=== PATIENT | female | born 1980 | race Caucasian/White ===

== ENCOUNTER 2018-03-11 12:28 | Emergency (ER) | payer OTHER ==
[2018-03-11 12:59] LABS: BILIRUBIN,URINE NEGATIVE (NEG); CLARITY,URINE CLEAR; COLOR,URINE YELLOW; GLUCOSE,URINE >=1000 mg/dL (NEG); NITRITE,URINE NEGATIVE (NEG); PH,URINE 5.5; PROTEIN,URINE NEGATIVE (NEG-TRACE)
[2018-03-11 13:10] LABS: ADD MAN DIFF? NO
[2018-03-11 13:12] LABS: BACTERIA,URINE FEW /HPF (0-FEW); RBC,URINE TNTC /HPF (0-2); SQUAMOUS EPITHELIAL CELL,UR MANY /LPF
[2018-03-11 13:23] LABS: BASO # 0.1 x10^3/uL (0.0-0.2); BASO % 1 % (0-3); EOS # 0.2 x10^3/uL (0.0-0.7); EOS % 2 % (0-3); HEMATOCRIT 43.6 % (36.0-47.0); HEMOGLOBIN 15.3 g/dL (12.0-15.5); LYMPH # 2.5 x10^3/uL (1.0-4.8); LYMPH % 28 % (24-48); MEAN CORPUSCULAR HEMOGLOBIN 31 pg (25-35); MEAN CORPUSCULAR HGB CONC 35 g/dL (31-37); MEAN CORPUSCULAR VOLUME 88 fL (79-100); MONO # 0.5 x10^3/uL (0.0-1.1); MONO % 6 % (0-9); NEUT # 5.7 x10^3uL (1.8-7.7); NEUT % 63 % (31-73); PLATELET COUNT 211 x10^3/uL (140-400); RED BLOOD COUNT 4.93 x10^6/uL (3.50-5.40); RED CELL DISTRIBUTION WIDTH 15.8 % (11.5-14.5); WHITE BLOOD COUNT 9.1 x10^3/uL (4.0-11.0)
[2018-03-11 13:25] LABS: ANION GAP 8 (6-14); BLOOD UREA NITROGEN 10 mg/dL (7-20); BUN/CREATININE RATIO 13 (6-20); CALCIUM 8.8 mg/dL (8.5-10.1); CARBON DIOXIDE 29 mmol/L (21-32); CHLORIDE 100 mmol/L (98-107); CREATININE 0.8 mg/dL (0.6-1.0); GFR 80.7; GLUCOSE 304 mg/dL (70-99); POTASSIUM 4.1 mmol/L (3.5-5.1); SODIUM 137 mmol/L (136-145)
[2018-03-11 13:31] LABS: ALBUMIN 3.5 g/dL (3.4-5.0); ALBUMIN/GLOBULIN RATIO 0.9 (1.0-1.7); ALK PHOS 104 U/L (46-116); ALT (SGPT) 135 U/L (14-59); AST (SGOT) 70 U/L (15-37); TOTAL BILIRUBIN 0.5 mg/dL (0.2-1.0); TOTAL PROTEIN 7.2 g/dL (6.4-8.2)
[2018-03-11] MEDS: IOHEXOL 300 MG/ML 100ML VIAL. IV (13:53)
[2018-03-11] MEDS ORDERED: CONTRAST GIVEN. MC (14:00)
[2018-03-11] MEDS: IV NORMAL SALINE 1000ML BAG 1,000 ML IV (14:01)
== END 2018-03-11 15:11 | disposition home or self-care (01) ==
LOC: ER 12:28
DX: K42.9 Umbilical hernia without obstruction or gangrene (principal); E11.9 Type 2 diabetes mellitus without complications; F90.9 Attention-deficit hyperactivity disorder, unspecified type; Z90.710 Acquired absence of both cervix and uterus; Z90.722 Acquired absence of ovaries, bilateral
CPT/HCPCS: 36415; 74177; 80053; 81001; 85025; 96360; 99285-25; J7030; Q9967

== ENCOUNTER 2018-05-16 18:57 | Emergency (ER) | payer SELFPAY ==
[~2018-05-16] VITALS: Ht 162.6 cm; Wt 83.9 kg
[~2018-05-16 18:57] MED LIST: AMOX1TAB61 PO; DEXT20TA2 PO; HYDR-971 PO; OMEP20TA63 PO; ONDA4TAB10 SL; TRAM50TA PO
[2018-05-16] MEDS ORDERED: IV NORMAL SALINE 1000ML BAG 1,000 ML IV ONE (20:30)
--- NOTE | 2018-05-16 21:23 | PHYS DOC ---
Past Medical History Past Medical History: Anxiety, Depression, Diabetes-Type II, Ovarian Cyst, Other Additional Past Medical Histor: ADHD, stage 3 nonalcoholic steatohepatitis ( PHILLIPS) Past Surgical History: Hysterectomy, Oophorectomy, Tonsillectomy, Other Additional Past Surgical Histo: bilateral ankles, multiple abscess removal surgerieS, breast reduction Alcohol Use: None Drug Use: None Adult General Chief Complaint Chief Complaint: HYPOGLYCEMIA HPI HPI Patient is a 38 year old female with PMHx of anxiety, DM2, PHILLIPS, ADHD who presents with 3 hours of tremulousness, nausea, and headache. Patient reports her symptoms started when she was watching football at home, and patient believed her BG was low. She checked it and it was 58. Patient notes her headache was gradual in onset, frontal in location and throbbing. Pt reports she has felt nauseated and had LUQ tenderness but denies vomitng or diarrhea. Pt also denies recent illness, fever, chest pain, palpitations, SOB, dizzyness, or falls. Pt notes she took her normal Jardiance and Januvia this morning and did not check her sugar then and denies recent changes in medication. Pt denies new stressors or sources of anxiety at home. Review of Systems Review of Systems Constitutional: Denies fever, notes chills [] Eyes: Denies change in visual acuity, redness, or eye pain [] HENT: Denies nasal congestion or sore throat [] Respiratory: Denies cough or shortness of breath [] Cardiovascular: Denies chest pain or palpitations [] GI: Notes abdominal pain, nausea, Denies vomiting, bloody stools or diarrhea [] : Denies dysuria or hematuria [] Musculoskeletal: Denies back pain or joint pain [] Integument: Denies rash or skin lesions [] Neurologic: Denies headache, focal weakness or sensory changes [] Endocrine: Denies polyuria or polydipsia [] Complete systems were reviewed and found to be within normal limits, except as documented in this note. Family History Family History Noncontributory Current Medications Current Medications Current Medications Medications (Trade) Dose Ordered Sig/Taqueria Start Time Stop Time Status Last Admin Dose Admin Dexamethasone Sodium Phosphate (Decadron) 10 mg 1X ONCE 05/16/18 21:30 05/16/18 21:31 DC 05/16/18 22:36 10 MG Dextrose (Dextrose 50%-Water Syringe) 25 gm 1X ONCE 05/16/18 23:30 05/16/18 23:31 DC 05/16/18 23:27 25 GM Ketorolac Tromethamine (Toradol 15mg Vial) 15 mg 1X ONCE 05/16/18 21:30 05/16/18 21:31 DC 05/16/18 22:36 15 MG Lorazepam (Ativan) 0.5 mg 1X ONCE 05/16/18 21:30 05/16/18 21:31 DC 05/16/18 22:37 0.5 MG Ondansetron HCl (Zofran) 4 mg 1X ONCE 05/16/18 21:30 05/16/18 21:31 DC 05/16/18 22:35 4 MG Potassium Chloride (Klor-Con) 40 meq 1X ONCE 05/16/18 23:30 05/16/18 23:31 DC 05/16/18 23:28 40 MEQ Sodium Chloride 1,000 ml @ 1,000 mls/hr 1X ONCE 05/16/18 20:30 05/16/18 21:29 DC 05/16/18 22:34 1,000 MLS/HR Allergies Allergies Allergies Coded Allergies Type Severity Reaction Last Updated Verified No Known Drug Allergies 05/11/15 No Physical Exam Physical Exam Constitutional: Well developed, well nourished, no acute distress, non-toxic appearance. [] HENT: Normocephalic, atraumatic, oropharynx moist, no oral exudates, nose normal. [] Eyes: PERRL, EOMI, conjunctiva normal, no discharge. [] Neck: Normal range of motion, no tenderness, supple, no meningismus [] Cardiovascular:Heart rate regular rhythm, no murmur [] Lungs & Thorax: Bilateral breath sounds clear to auscultation [] Abdomen: Bowel sounds normal, soft, LUQ tenderness, no pulsatile masses. [] Skin: Warm, dry, no erythema, no rash. [] Back: Chronic midthroacic midline tenderness, no CVA tenderness. [] Extremities: No tenderness, no cyanosis, no clubbing, ROM intact, no edema. [] Neurologic: Alert and oriented X 3, normal motor function, normal sensory function, no focal deficits noted. Intention tremulousness [] Psychologic: Affect normal, judgement normal, mood normal, appears mildly anxious [] Current Patient Data Vital Signs Vital Signs Date Time Temp Pulse Resp B/P (MAP) Pulse Ox O2 Delivery O2 Flow Rate FiO2 05/16/18 23:33 100 20 118/62 (80) 96 05/16/18 20:00 97.7 Room Air 97.7 Lab Values Laboratory Tests Test 05/16/18 19:04 05/16/18 21:15 05/16/18 21:34 05/16/18 21:50 Glucose (Fingerstick) 79 mg/dL (70-99) Urine Collection Type Unknown Urine Color Olive Urine Clarity Clear Urine pH 5.0 Urine Specific [place] >=1.030 Urine Protein Negative mg/dL (NEG-TRACE) Urine Glucose (UA) >=1000 mg/dL (NEG) Urine Ketones (Stick) Trace mg/dL (NEG) Urine Blood Large (NEG) Urine Nitrite Negative (NEG) Urine Bilirubin Small (NEG) Urine Urobilinogen Dipstick 1.0 mg/dL (0.2 mg/dL) Urine Leukocyte Esterase Negative (NEG) Urine RBC >40 /HPF (0-2) Urine WBC 1-4 /HPF (0-4) Urine Squamous Epithelial Cells Mod /LPF Urine Bacteria Few /HPF (0-FEW) Urine Mucus Marked /LPF POC Urine HCG, Qualitative Hcg negative (Negative) White Blood Count 14.9 x10^3/uL (4.0-11.0) H Red Blood Count 4.59 x10^6/uL (3.50-5.40) Hemoglobin 14.7 g/dL (12.0-15.5) Hematocrit 41.5 % (36.0-47.0) Mean Corpuscular Volume 90 fL (79-100) Mean Corpuscular Hemoglobin 32 pg (25-35) Mean Corpuscular Hemoglobin Concent 35 g/dL (31-37) Red Cell Distribution Width 16.1 % (11.5-14.5) H Platelet Count 277 x10^3/uL (140-400) Neutrophils (%) (Auto) 72 % (31-73) Lymphocytes (%) (Auto) 19 % (24-48) L Monocytes (%) (Auto) 8 % (0-9) Eosinophils (%) (Auto) 0 % (0-3) Basophils (%) (Auto) 1 % (0-3) Neutrophils # (Auto) 10.6 x10^3uL (1.8-7.7) H Lymphocytes # (Auto) 2.7 x10^3/uL (1.0-4.8) Monocytes # (Auto) 1.2 x10^3/uL (0.0-1.1) H Eosinophils # (Auto) 0.1 x10^3/uL (0.0-0.7) Basophils # (Auto) 0.2 x10^3/uL (0.0-0.2) Sodium Level 142 mmol/L (136-145) Potassium Level 2.9 mmol/L (3.5-5.1) *L Chloride Level 105 mmol/L (98-107) Carbon Dioxide Level 28 mmol/L (21-32) Anion Gap 9 (6-14) Blood Urea Nitrogen 10 mg/dL (7-20) Creatinine 0.8 mg/dL (0.6-1.0) Estimated GFR (Cockcroft-Gault) 80.3 BUN/Creatinine Ratio 13 (6-20) Glucose Level 49 mg/dL (70-99) L Calcium Level 9.1 mg/dL (8.5-10.1) Magnesium Level 2.0 mg/dL (1.8-2.4) Total Bilirubin 0.2 mg/dL (0.2-1.0) Aspartate Amino Transferase (AST) 63 U/L (15-37) H Alanine Aminotransferase (ALT) 101 U/L (14-59) H Alkaline Phosphatase 100 U/L (46-116) Creatine Kinase 55 U/L (26-192) Creatine Kinase MB (Mass) < 0.5 ng/mL (0.0-3.6) Creatine Kinase MB Relative Index % (0-4) Troponin I Quantitative < 0.017 ng/mL (0.000-0.055) Total Protein 7.2 g/dL (6.4-8.2) Albumin 3.6 g/dL (3.4-5.0) Albumin/Globulin Ratio 1.0 (1.0-1.7) Lipase 107 U/L (73-393) Thyroid Stimulating Hormone (TSH) 1.010 uIU/mL (0.358-3.74) Free Thyroxine 0.91 ng/dL (0.76-1.46) Free Triiodothyronine (T3) pg/mL 1.61 pg/mL (2.18-3.98) L Test 05/16/18 23:59 Glucose (Fingerstick) 126 mg/dL (70-99) H Laboratory Tests 05/16/18 21:50 Laboratory Tests 05/16/18 21:50 EKG EKG @2316 NSR at 100bpm, NO ST elevation. Incomplete RBBB Radiology/Procedures Radiology/Procedures [] Course & Med Decision Making Course & Med Decision Making 38-year-old female presenting with tremulousness. Patient notes she was feeling tremulous at home as if her blood sugar was low. Patient checked her blood sugar and found it to be 58. In the ED patient has noted tremulousness and initial point of care glucose was 79. Labs were collected and reviewed and showed glucose to be 48. Patient was given dextrose and by mouth nutrition and glucose was treated checked and was found to be 124 and patient reports she is feeling better. Patient also given Ativan did not improve her symptoms and her thyroid function was checked which was found to be normal. Patient's potassium was found to be 2.9 and it was replaced with 40 mEq of by mouth potassium. Patient stable for discharge with outpatient follow-up with PCP. Discussed findings and plan with patient and family, who acknowledge understanding and agreement. [] Dragon Disclaimer Dragon Disclaimer This electronic medical record was generated, in whole or in part, using a voice recognition dictation system. Departure Departure Impression: Primary Impression: Hypoglycemia Additional Impression: Hypokalemia Disposition: HOME, SELF-CARE Condition: IMPROVED Referrals: EBENEZER ALEGRIA MD (PCP) Patient Instructions: Hypoglycemia, [id number], Hypokalemia, Potassium Content of Foods Problem Qualifiers ANA FULLER DO May 16, 2018 21:23
[2018-05-16] MEDS ORDERED: KETOROLAC 15 MG/ML VIAL. IV ONE (21:30)
[2018-05-16] MEDS ORDERED: DEXAMETHASONE SOD PHOS 20 MG/5 ML VIAL. IV ONE (21:30)
[2018-05-16] MEDS ORDERED: ONDANSETRON PF 4 MG/2 ML VIAL. IV ONE (21:30)
[2018-05-16 21:40] LABS: BILIRUBIN,URINE SMALL (NEG); CLARITY,URINE CLEAR; COLOR,URINE AMBER; NITRITE,URINE NEGATIVE (NEG); PROTEIN,URINE NEGATIVE (NEG-TRACE)
[2018-05-16 21:45] LABS: SQUAMOUS EPITHELIAL CELL,UR MOD /LPF
[2018-05-16 21:46] LABS: RBC,URINE >40 /HPF (0-2)
[2018-05-16 21:47] LABS: BACTERIA,URINE FEW /HPF (0-FEW)
[2018-05-16 22:03] LABS: BASO # 0.2 x10^3/uL (0.0-0.2); BASO % 1 % (0-3); EOS # 0.1 x10^3/uL (0.0-0.7); EOS % 0 % (0-3); HEMATOCRIT 41.5 % (36.0-47.0); HEMOGLOBIN 14.7 g/dL (12.0-15.5); LYMPH # 2.7 x10^3/uL (1.0-4.8); LYMPH % 19 % (24-48); MEAN CORPUSCULAR HEMOGLOBIN 32 pg (25-35); MEAN CORPUSCULAR HGB CONC 35 g/dL (31-37); MEAN CORPUSCULAR VOLUME 90 fL (79-100); MONO # 1.2 x10^3/uL (0.0-1.1); MONO % 8 % (0-9); NEUT # 10.6 x10^3uL (1.8-7.7); NEUT % 72 % (31-73); PLATELET COUNT 277 x10^3/uL (140-400); RED BLOOD COUNT 4.59 x10^6/uL (3.50-5.40); RED CELL DISTRIBUTION WIDTH 16.1 % (11.5-14.5); WHITE BLOOD COUNT 14.9 x10^3/uL (4.0-11.0)
[2018-05-16 22:20] LABS: ALBUMIN 3.6 g/dL (3.4-5.0); CALCIUM 9.1 mg/dL (8.5-10.1); CREATININE 0.8 mg/dL (0.6-1.0); GFR 80.3; TOTAL BILIRUBIN 0.2 mg/dL (0.2-1.0); TOTAL PROTEIN 7.2 g/dL (6.4-8.2)
[2018-05-16 22:29] LABS: CREATINE KINASE 55 U/L (26-192)
[2018-05-16 22:31] LABS: FREE T4 0.91 ng/dL (0.76-1.46); POTASSIUM 2.9 mmol/L (3.5-5.1); THYROID STIM HORMONE (TSH) 1.01 uIU/mL (0.358-3.74)
[2018-05-16] MEDS ORDERED: POTASSIUM CHLORIDE 20 MEQ TABLET.ER. PO ONE (23:30)
[2018-05-16] MEDS ORDERED: DEXTROSE 50% 25 GM / 50ML DISP.SYRIN. IV ONE (23:30)
[2018-05-16 23:33] VITALS: BP 118/62
--- NOTE | 2018-05-17 07:21 | EKG ---
[facility] [address] [place] [address] Test Date: 2018-05-16 Test Time: 23:16:47 Pat Name: RON SKELTON Department: Room: Gender: F [employer] Analyst: JHON : 1980 Requested By: ANA FULLER Order Number: [id number] Reading MD: Floyd Jernigan Measurements Intervals [place] Rate: 99 P: 36 WA: 158 QRS: -15 QRSD: 92 T: 55 QT: 360 QTc: 467 Interpretive Statements SINUS RHYTHM LEFTWARD AXIS Electronically Signed On 05-17-2018 11:30:26 CDT by Floyd Jernigan
== END 2018-05-17 01:16 | disposition home or self-care (01) ==
LOC: ER 18:57
DX: E16.2 Hypoglycemia, unspecified (principal); E87.6 Hypokalemia; F41.9 Anxiety disorder, unspecified; R10.12 Left upper quadrant pain; F32.9 Major depressive disorder, single episode, unspecified; E11.9 Type 2 diabetes mellitus without complications; Z90.710 Acquired absence of both cervix and uterus; Z90.89 Acquired absence of other organs
CPT/HCPCS: 36415; 80053; 81001; 81025; 82553; 82962; 83690; 83735; 84439; 84443; 84481; 84484; 85025; 93005; 96361; 96374; 96375; 99285; J1100; J1885; J2060; J2405; J7030; J7042

== ENCOUNTER 2018-06-04 13:31 | Emergency (ER) | payer BC ==
[~2018-06-04] VITALS: Ht 172.7 cm; Wt 86.6 kg
[2018-06-04 14:45] LABS: BILIRUBIN,URINE SMALL (NEG); CLARITY,URINE CLEAR; COLOR,URINE AMBER; NITRITE,URINE NEGATIVE (NEG); PROTEIN,URINE NEGATIVE (NEG-TRACE)
[2018-06-04 14:45] LABS: BASO # 0.1 x10^3/uL (0.0-0.2); BASO % 1 % (0-3); EOS # 0.1 x10^3/uL (0.0-0.7); EOS % 1 % (0-3); HEMATOCRIT 43.7 % (36.0-47.0); HEMOGLOBIN 15.4 g/dL (12.0-15.5); LYMPH # 2.3 x10^3/uL (1.0-4.8); LYMPH % 22 % (24-48); MEAN CORPUSCULAR HEMOGLOBIN 32 pg (25-35); MEAN CORPUSCULAR HGB CONC 35 g/dL (31-37); MEAN CORPUSCULAR VOLUME 91 fL (79-100); MONO # 0.5 x10^3/uL (0.0-1.1); MONO % 5 % (0-9); NEUT # 7.4 x10^3uL (1.8-7.7); NEUT % 71 % (31-73); PLATELET COUNT 233 x10^3/uL (140-400); RED BLOOD COUNT 4.79 x10^6/uL (3.50-5.40); RED CELL DISTRIBUTION WIDTH 15.7 % (11.5-14.5); WHITE BLOOD COUNT 10.5 x10^3/uL (4.0-11.0)
[2018-06-04 14:48] LABS: SQUAMOUS EPITHELIAL CELL,UR MANY /LPF
[2018-06-04 14:49] LABS: BACTERIA,URINE MODERATE /HPF (0-FEW)
[2018-06-04 14:50] LABS: RBC,URINE OCC /HPF (0-2)
[2018-06-04 14:51] LABS: HYALINE CASTS, URINE FEW /HPF
[2018-06-04] MEDS ORDERED: IOHEXOL 300 MG/ML 100ML VIAL. IV ONE (15:00)
[2018-06-04] MEDS ORDERED: CONTRAST GIVEN. MC PRN (15:00)
[2018-06-04] MEDS ORDERED: ONDANSETRON PF 4 MG/2 ML VIAL. IV ONE (15:00)
[2018-06-04] MEDS ORDERED: fentaNYL PF VIAL 100 MCG/2 ML VIAL IV ONE ×2 (15:00→16:30)
[2018-06-04] MEDS ORDERED: IV NORMAL SALINE 1000ML BAG 1,000 ML IV ONE (15:00)
[2018-06-04 15:02] LABS: ALBUMIN 3.7 g/dL (3.4-5.0); CALCIUM 9.9 mg/dL (8.5-10.1); CREATININE 0.8 mg/dL (0.6-1.0); GFR 80.3; POTASSIUM 3.4 mmol/L (3.5-5.1); TOTAL BILIRUBIN 0.5 mg/dL (0.2-1.0); TOTAL PROTEIN 7.4 g/dL (6.4-8.2)
--- NOTE | 2018-06-04 15:12 | PHYS DOC ---
Past Medical History Past Medical History: Anxiety, Depression, Diabetes-Type II, Ovarian Cyst, Other Additional Past Medical Histor: ADHD, stage 3 nonalcoholic steatohepatitis ( PHILLIPS) Past Surgical History: Cholecystectomy, Hysterectomy, Oophorectomy, Tonsillectomy, Other Additional Past Surgical Histo: bilateral ankles, multiple abscess removal surgerieS, breast reduction Alcohol Use: None Drug Use: None Adult General Chief Complaint Chief Complaint: ABDOMINAL PAIN HPI HPI Patient is a 38 year old female who presents with abdominal pain that started last night. Patient states that it started in the 8 under the navel pain that moved over to right lower quadrant. Patient states she's had nausea and vomiting. Patient states she's vomited twice today. Patient denies any current fever. Patient states she took ibuprofen at noon today. Review of Systems Review of Systems Constitutional: Denies fever or chills [] Eyes: Denies change in visual acuity, redness, or eye pain [] HENT: Denies nasal congestion or sore throat [] Respiratory: Denies cough or shortness of breath [] Cardiovascular: No additional information not addressed in HPI [] GI: RLQ abdominal pain, nausea, vomiting. Denies bloody stools or diarrhea [] : Denies dysuria or hematuria [] Musculoskeletal: Denies back pain or joint pain [] Integument: Denies rash or skin lesions [] Neurologic: Denies headache, focal weakness or sensory changes [] Endocrine: Denies polyuria or polydipsia [] All other systems were reviewed and found to be within normal limits, except as documented in this note. Current Medications Current Medications Current Medications Medications (Trade) Dose Ordered Sig/Taqueria Start Time Stop Time Status Last Admin Dose Admin Dextrose (Dextrose 50%-Water Syringe) 12.5 gm 1X ONCE 06/04/18 16:00 06/04/18 16:01 DC Fentanyl Citrate (Fentanyl 2ml Vial) 50 mcg 1X ONCE 06/04/18 16:30 06/04/18 16:31 DC 06/04/18 16:29 50 MCG Info (CONTRAST GIVEN -- Rx MONITORING) 1 each PRN DAILY PRN 06/04/18 15:00 06/04/18 18:19 DC Iohexol (Omnipaque 300 Mg/ml) 75 ml 1X ONCE 06/04/18 15:00 06/04/18 15:01 DC 06/04/18 15:00 75 ML Ondansetron HCl (Zofran) 4 mg 1X ONCE 06/04/18 15:00 06/04/18 15:01 DC 06/04/18 15:24 4 MG Sodium Chloride 1,000 ml @ 1,000 mls/hr 1X ONCE 06/04/18 15:00 06/04/18 15:59 DC 06/04/18 15:25 1,000 MLS/HR Allergies Allergies Allergies Coded Allergies Type Severity Reaction Last Updated Verified No Known Drug Allergies 05/11/15 No Physical Exam Physical Exam Constitutional: Well developed, well nourished, no acute distress, non-toxic appearance. [] HENT: Normocephalic, atraumatic, bilateral external ears normal, oropharynx moist, no oral exudates, nose normal. [] Eyes: PERRLA, EOMI, conjunctiva normal, no discharge. [] Neck: Normal range of motion, no tenderness, supple, no stridor. [] Cardiovascular:Heart rate regular rhythm, no murmur [] Lungs & Thorax: Bilateral breath sounds clear to auscultation [] Abdomen: Bowel sounds normal, soft, RLQ tenderness, no masses, no pulsatile masses. [] Skin: Warm, dry, no erythema, no rash. [] Back: No tenderness, no CVA tenderness. [] Extremities: No tenderness, no cyanosis, no clubbing, ROM intact, no edema. [] Neurologic: Alert and oriented X 3, normal motor function, normal sensory function, no focal deficits noted. [] Psychologic: Affect normal, judgement normal, mood normal. [] Current Patient Data Vital Signs Vital Signs Date Time Temp Pulse Resp B/P (MAP) Pulse Ox O2 Delivery O2 Flow Rate FiO2 06/04/18 18:15 96 18 121/59 (79) 97 Room Air 06/04/18 14:43 98.4 98.4 Lab Values Laboratory Tests Test 06/04/18 14:10 06/04/18 14:22 06/04/18 14:40 06/04/18 15:42 Urine Collection Type Unknown Urine Color Olive Urine Clarity Clear Urine pH 5.0 Urine Specific [place] >=1.030 Urine Protein Negative mg/dL (NEG-TRACE) Urine Glucose (UA) >=1000 mg/dL (NEG) Urine Ketones (Stick) Negative mg/dL (NEG) Urine Blood Negative (NEG) Urine Nitrite Negative (NEG) Urine Bilirubin Small (NEG) Urine Urobilinogen Dipstick 1.0 mg/dL (0.2 mg/dL) Urine Leukocyte Esterase Negative (NEG) Urine RBC Occ /HPF (0-2) Urine WBC 5-10 /HPF (0-4) Urine Squamous Epithelial Cells Many /LPF Urine Bacteria Moderate /HPF (0-FEW) Urine Hyaline Casts Few /HPF Urine Mucus Marked /LPF POC Urine HCG, Qualitative Hcg negative (Negative) White Blood Count 10.5 x10^3/uL (4.0-11.0) Red Blood Count 4.79 x10^6/uL (3.50-5.40) Hemoglobin 15.4 g/dL (12.0-15.5) Hematocrit 43.7 % (36.0-47.0) Mean Corpuscular Volume 91 fL (79-100) Mean Corpuscular Hemoglobin 32 pg (25-35) Mean Corpuscular Hemoglobin Concent 35 g/dL (31-37) Red Cell Distribution Width 15.7 % (11.5-14.5) H Platelet Count 233 x10^3/uL (140-400) Neutrophils (%) (Auto) 71 % (31-73) Lymphocytes (%) (Auto) 22 % (24-48) L Monocytes (%) (Auto) 5 % (0-9) Eosinophils (%) (Auto) 1 % (0-3) Basophils (%) (Auto) 1 % (0-3) Neutrophils # (Auto) 7.4 x10^3uL (1.8-7.7) Lymphocytes # (Auto) 2.3 x10^3/uL (1.0-4.8) Monocytes # (Auto) 0.5 x10^3/uL (0.0-1.1) Eosinophils # (Auto) 0.1 x10^3/uL (0.0-0.7) Basophils # (Auto) 0.1 x10^3/uL (0.0-0.2) Sodium Level 142 mmol/L (136-145) Potassium Level 3.4 mmol/L (3.5-5.1) L Chloride Level 105 mmol/L (98-107) Carbon Dioxide Level 27 mmol/L (21-32) Anion Gap 10 (6-14) Blood Urea Nitrogen 12 mg/dL (7-20) Creatinine 0.8 mg/dL (0.6-1.0) Estimated GFR (Cockcroft-Gault) 80.3 BUN/Creatinine Ratio 15 (6-20) Glucose Level 44 mg/dL (70-99) L Calcium Level 9.9 mg/dL (8.5-10.1) Total Bilirubin 0.5 mg/dL (0.2-1.0) Aspartate Amino Transferase (AST) 78 U/L (15-37) H Alanine Aminotransferase (ALT) 130 U/L (14-59) H Alkaline Phosphatase 108 U/L (46-116) Total Protein 7.4 g/dL (6.4-8.2) Albumin 3.7 g/dL (3.4-5.0) Albumin/Globulin Ratio 1.0 (1.0-1.7) Lipase 109 U/L (73-393) Glucose (Fingerstick) 52 mg/dL (70-99) L Test 06/04/18 16:17 06/04/18 17:29 Glucose (Fingerstick) 58 mg/dL (70-99) L 121 mg/dL (70-99) H Laboratory Tests 06/04/18 14:40 Laboratory Tests 06/04/18 14:40 Microbiology 06/04/18 Urine Culture - Final, Complete 06/04/18 Urine Culture Result 1 ([facility]INITY) - Final, Complete EKG EKG [] Radiology/Procedures Radiology/Procedures CT ABD PEL Impressions: [facility] [address] [place] [address] IMAGING REPORT Signed PATIENT: RON SKELTON ACCOUNT: [id number] : 1980 LOCATION: ER AGE: 38 SEX: F EXAM STATUS: REG ER ORD. PHYSICIAN: YARELIS LINK APRN REASON: RLQ ABDOMINAL PAIN PROCEDURE: CT ABD PELV W/ IV CONTRST ONLY CT abdomen and pelvis with contrast History: Right lower quadrant pain with nausea and vomiting Technique: After the administration of intravenous contrast, CT imaging was performed of the abdomen and pelvis. No oral contrast was given as per request. Multiplanar images are reviewed. Exposure: One or more of the following individualized dose reduction techniques were utilized for this examination: 1. Automated exposure control 2. Adjustment of the mA and/or kV according to patient size 3. Use of iterative reconstruction technique. Contrast: 75 cc Omnipaque 300 Comparison: May 03, 2018 most recent exam, also noted CT performed March 11, 2018 Findings: There is no significant abnormality of the visualized lung bases. There is no new significant abnormality of the liver, spleen, pancreas. There is again probable hepatic steatosis. There is again hepatomegaly. There is again fat-containing lesion of left adrenal gland about 2.8 cm, stable. Both kidneys enhance without hydronephrosis. There has been cholecystectomy. Accurate evaluation of bowel is limited without oral contrast. There is no significant inflammatory change adjacent to the bowel. There is no evidence of bowel obstruction, free fluid, or free air. Normal appendix is visualized. There is some retained stool in the colon. There is again small ventral fat-containing hernia just superior to the umbilicus on the right, neck about 0.4 cm and transverse dimension hernia sac about 2.6 cm. Impression: 1. There is no CT evidence of acute appendicitis, no significant inflammatory change. There is retained stool in the colon. 2. There is stable likely myelolipoma of the left adrenal gland. There is likely hepatic steatosis. There is again hepatomegaly. 3. There is a small ventral fat-containing hernia just above the umbilicus. Electronically signed by: Lois Souza MD (06/04/2018 3:56 PM) [id number] DICTATED and SIGNED BY: LOIS SOUZA MD DATE: 06/04/18 1545 Course & Med Decision Making Course & Med Decision Making Patient is a 38 year old female who presents with abdominal pain that started last night. Patient states that it started in the 8 under the navel pain that moved over to right lower quadrant. Patient states she's had nausea and vomiting. Patient states she's vomited twice today. Patient denies any current fever. Patient states she took ibuprofen at noon today. Patient is alert and oriented. Patient denies any numbness or tingling. Patient denies feeling dizzy , diaphoretic or lightheaded. Patient has no chest pain or shortness of air. Patient's abdomen is soft and nontender except for she has rebound tenderness in the right lower quadrant. Patient states that she had a bowel movement this morning and it was normal for her. Patient denies any dysuria or diarrhea. Patient rates her pain a 7 out of 10. Patient states she currently has no primary care physician. Patient states that she has no known drug allergies. Patient is a diabetic and has an anxiety disorder. Patient states she has had a hysterectomy in the [place]. Patient's lungs are clear to auscultation in all lobes. Heart rate is regular without murmur. Patient is afebrile. Skin is pink warm and dry and mucous membranes are moist. Patient is given Zofran, 1000ml Bolus NS and fentanyl and the ED. Patients blood glucose was 44 and POC was 52. Patient is not symptomatic for hypoglycemia. I did order a half amp of dextrose by the nurse had already given the patient apple juice to drink. Blood glucose will be and I will hold off on the dextrose at this time. Abdominal CT shows 1. There is no CT evidence of acute appendicitis, no significant inflammatory change. There is retained stool in the colon. 2. There is stable likely myelolipoma of the left adrenal gland. There is likely hepatic steatosis. There is again hepatomegaly.3. There is a small ventral fat-containing hernia just above the umbilicus. 1623: Patients glucose recheck is 58. Patient is alert and oriented and asymptomatic for hypoglycemia. Patents CT has no acute findings so the patient will be fed and glucose will be rechecked. 1720: Patient ate food and kept it down. Her blood sugar is now 121. Patient is stable is discharged home with nausea medications and instructed that if she is vomiting or not eating to not take her diabetes medication or to keep a close eye on her blood sugar so that it does not drop to low. Patient to follow up with her primary care physician. [] Dragon Disclaimer Dragon Disclaimer This electronic medical record was generated, in whole or in part, using a voice recognition dictation system. Departure Departure Impression: Primary Impression: Hypoglycemia Additional Impressions: Vomiting Abdominal pain Disposition: 01 HOME, SELF-CARE Condition: STABLE Referrals: EBENEZER ALEGRIA MD (PCP) Patient Instructions: Abdominal Pain, Hypoglycemia (Low Blood Sugar) Additional Instructions: Follow up with your primary care tomorrow. Take medications as prescribed. Check your blood sugar at least 4 times a day. Scripts Ondansetron (ONDANSETRON ODT) 4 Mg Tab.rapdis 4 MG PO BID PRN for NAUSEA/VOMITING for 7 Days, #14 TAB Prov: YARELIS LINK APRN 06/04/18 Attending Signature Attending Signature I have reviewed the PA/WATER/WASTEWATER ENGINEER's note and plan of care. I was available for consultation as needed during the patient's visit in the emergency department. I agree with the clinical impression, plan, and disposition. Problem Qualifiers Additional Impressions: Vomiting Vomiting type: unspecified Vomiting Intractability: unspecified Nausea presence: unspecified Qualified Codes: R11.10 - Vomiting, unspecified Abdominal pain Abdominal location: generalized Qualified Codes: R10.84 - Generalized abdominal pain YARELIS LINK APRN Jun 04, 2018 15:12 ANA FULLER DO Jun 06, 2018 12:32
[2018-06-04] MEDS ORDERED: DEXTROSE 50% 25 GM / 50ML DISP.SYRIN. IV ONE (16:00)
--- NOTE | 2018-06-04 16:00 | RAD ---
CT abdomen and pelvis with contrast History: Right lower quadrant pain with nausea and vomiting Technique: After the administration of intravenous contrast, CT imaging was performed of the abdomen and pelvis. No oral contrast was given as per request. Multiplanar images are reviewed. Exposure: One or more of the following individualized dose reduction techniques were utilized for this examination: 1. Automated exposure control 2. Adjustment of the mA and/or kV according to patient size 3. Use of iterative reconstruction technique. Contrast: 75 cc Omnipaque 300 Comparison: May 03, 2018 most recent exam, also noted CT performed March 11, 2018 Findings: There is no significant abnormality of the visualized lung bases. There is no new significant abnormality of the liver, spleen, pancreas. There is again probable hepatic steatosis. There is again hepatomegaly. There is again fat-containing lesion of left adrenal gland about 2.8 cm, stable. Both kidneys enhance without hydronephrosis. There has been cholecystectomy. Accurate evaluation of bowel is limited without oral contrast. There is no significant inflammatory change adjacent to the bowel. There is no evidence of bowel obstruction, free fluid, or free air. Normal appendix is visualized. There is some retained stool in the colon. There is again small ventral fat-containing hernia just superior to the umbilicus on the right, neck about 0.4 cm and transverse dimension hernia sac about 2.6 cm. Impression: 1. There is no CT evidence of acute appendicitis, no significant inflammatory change. There is retained stool in the colon. 2. There is stable likely myelolipoma of the left adrenal gland. There is likely hepatic steatosis. There is again hepatomegaly. 3. There is a small ventral fat-containing hernia just above the umbilicus. Electronically signed by: Bry Rooney MD (06/04/2018 3:56 PM) [id number]
[2018-06-04] MEDS ORDERED: ONDA4TAB12 PO (17:57)
[2018-06-04 18:15] VITALS: BP 121/59
== END 2018-06-04 18:15 | disposition home or self-care (01) ==
LOC: ER 13:31
DX: E11.649 Type 2 diabetes mellitus with hypoglycemia without coma (principal); R10.31 Right lower quadrant pain; R11.2 Nausea with vomiting, unspecified; F41.9 Anxiety disorder, unspecified; F32.9 Major depressive disorder, single episode, unspecified; Z90.49 Acquired absence of other specified parts of digestive tract; Z90.710 Acquired absence of both cervix and uterus; Z90.89 Acquired absence of other organs
CPT/HCPCS: 36415; 74177; 80053; 81001; 81025; 82962; 83690; 85025; 87086; 96361; 96374; 96375; 96376; 99285; J2405; J3010; J7030; Q9967

== ENCOUNTER 2018-06-16 15:25 | Inpatient (IN) | payer BC ==
[~2018-06-16] VITALS: Ht 162.6 cm; Wt 87.6 kg
[~2018-06-16 15:25] MED LIST changes: +ONDA4TAB12 PO
--- NOTE | 2018-06-16 16:29 | PHYS DOC ---
Past Medical History Past Medical History: Anxiety, Depression, Diabetes-Type II, Ovarian Cyst, Other Additional Past Medical Histor: ADHD, stage 3 nonalcoholic steatohepatitis ( [place]) Past Surgical History: Cholecystectomy, Hysterectomy, Oophorectomy, Tonsillectomy, Other Additional Past Surgical Histo: bilateral ankles, multiple abscess removal surgerieS, breast reduction Alcohol Use: None Drug Use: None Adult General Chief Complaint Chief Complaint: BLOOD SUGAR PROBLEM HPI HPI Patient is a 38 year old female who presents with abdominal pain and nausea with an elevated blood sugar. Patient reports she was on blood sugar medications and was having hypoglycemic episodes. She reports her PCP stopped all of her diabetic medications on June 10. She reports when she woke up this morning, her blood sugar was in the 400s. She reports she did not feel well at that time and went back to bed. She reports she has felt unwell for the entire day. Review of Systems Review of Systems Constitutional: Denies fever or chills [] Eyes: Denies change in visual acuity Respiratory: Denies cough or shortness of breath [] Cardiovascular: Denies chest pain or palpitations GI: Reports of gastric abdominal pain and nausea without vomiting Integument: Denies rash or skin lesions [] Neurologic: Denies headache, focal weakness or sensory changes [] Endocrine: Reports polyuria or polydipsia [] All other systems were reviewed and found to be within normal limits, except as documented in this note. Current Medications Current Medications Current Medications Medications (Trade) Dose Ordered Sig/Taqueria Start Time Stop Time Status Last Admin Dose Admin Fentanyl Citrate (Fentanyl 2ml Vial) 50 mcg 1X ONCE 06/16/18 16:45 06/16/18 16:46 DC 06/16/18 16:32 50 MCG Morphine Sulfate (Morphine Sulfate) 4 mg 1X ONCE 06/16/18 17:30 06/16/18 17:31 DC 06/16/18 17:26 4 MG Ondansetron HCl (Zofran) 4 mg 1X ONCE 06/16/18 16:45 06/16/18 16:46 DC 06/16/18 16:32 4 MG Sodium Chloride 1,000 ml @ 1,000 mls/hr 1X ONCE 06/16/18 17:30 06/16/18 18:29 DC 06/16/18 17:30 1,000 MLS/HR Allergies Allergies Allergies Coded Allergies Type Severity Reaction Last Updated Verified No Known Drug Allergies 05/11/15 No Physical Exam Physical Exam Constitutional: Well developed, well nourished, no acute distress, non-toxic appearance. [] HENT: Normocephalic, atraumatic Eyes: PERRLA, EOMI, conjunctiva normal, no discharge. [] Neck: Normal range of motion, no tenderness, supple, no stridor. [] Cardiovascular:Heart rate regular rhythm, no murmur [] Lungs & Thorax: Bilateral breath sounds clear to auscultation [] Abdomen: Bowel sounds normal, soft, epigastric pain on palpation Skin: Warm, dry, no erythema, no rash. [] Extremities: ROM intact, no edema. [] Neurologic: Alert and oriented X 3, normal motor function, normal sensory function, no focal deficits noted. [] Psychologic: Affect normal, judgement normal, mood normal. [] Current Patient Data Vital Signs Vital Signs Date Time Temp Pulse Resp B/P (MAP) Pulse Ox O2 Delivery O2 Flow Rate FiO2 06/16/18 19:15 108 17 120/74 (89) 97 Room Air 06/16/18 16:15 98.2 98.2 Lab Values Laboratory Tests Test 06/16/18 16:00 06/16/18 16:23 06/16/18 16:50 06/16/18 18:57 Glucose (Fingerstick) 580 mg/dL (70-99) *H 472 mg/dL (70-99) H White Blood Count 22.7 x10^3/uL (4.0-11.0) H Red Blood Count 4.55 x10^6/uL (3.50-5.40) Hemoglobin 14.6 g/dL (12.0-15.5) Hematocrit 42.4 % (36.0-47.0) Mean Corpuscular Volume 93 fL (79-100) Mean Corpuscular Hemoglobin 32 pg (25-35) Mean Corpuscular Hemoglobin Concent 34 g/dL (31-37) Red Cell Distribution Width 16.0 % (11.5-14.5) H Platelet Count 241 x10^3/uL (140-400) Neutrophils (%) (Auto) 88 % (31-73) H Lymphocytes (%) (Auto) 7 % (24-48) L Monocytes (%) (Auto) 4 % (0-9) Eosinophils (%) (Auto) 0 % (0-3) Basophils (%) (Auto) 1 % (0-3) Neutrophils # (Auto) 20.0 x10^3uL (1.8-7.7) H Lymphocytes # (Auto) 1.5 x10^3/uL (1.0-4.8) Monocytes # (Auto) 0.9 x10^3/uL (0.0-1.1) Eosinophils # (Auto) 0.1 x10^3/uL (0.0-0.7) Basophils # (Auto) 0.1 x10^3/uL (0.0-0.2) Segmented Neutrophils % 90 % (35-66) H Band Neutrophils % 2 % (0-9) Lymphocytes % 4 % (24-48) L Monocytes % 3 % (0-10) Myelocytes % 1 % (0-0) H Platelet Estimate Adequate (ADEQUATE) Urine Collection Type Unknown Urine Color Yellow Urine Clarity Clear Urine pH 5.5 Urine Specific [place] >=1.030 Urine Protein Negative mg/dL (NEG-TRACE) Urine Glucose (UA) >=1000 mg/dL (NEG) Urine Ketones (Stick) Negative mg/dL (NEG) Urine Blood Negative (NEG) Urine Nitrite Negative (NEG) Urine Bilirubin Negative (NEG) Urine Urobilinogen Dipstick 0.2 mg/dL (0.2 mg/dL) Urine Leukocyte Esterase Negative (NEG) Urine RBC Occ /HPF (0-2) Urine WBC 1-4 /HPF (0-4) Urine Squamous Epithelial Cells Mod /LPF Urine Bacteria 0 /HPF (0-FEW) O2 Saturation 96 % (92-99) Arterial Blood pH 7.45 (7.35-7.45) Arterial Blood pCO2 at Patient Temp 34 mmHg (35-46) L Arterial Blood pO2 at Patient Temp 82 mmHg (85-108) L Arterial Blood HCO3 23 mmol/L (21-28) Arterial Blood Base Excess -1 mmol/L (-3-3) FiO2 21.0 Sodium Level 136 mmol/L (136-145) Potassium Level 4.6 mmol/L (3.5-5.1) Chloride Level 101 mmol/L (98-107) Carbon Dioxide Level 26 mmol/L (21-32) Anion Gap 9 (6-14) Blood Urea Nitrogen 11 mg/dL (7-20) Creatinine 1.1 mg/dL (0.6-1.0) H Estimated GFR (Cockcroft-Gault) 55.6 BUN/Creatinine Ratio 10 (6-20) Glucose Level 573 mg/dL (70-99) *H Serum Osmolality 311 mOsm/Kg (279-304) H Calcium Level 10.1 mg/dL (8.5-10.1) Total Bilirubin 0.4 mg/dL (0.2-1.0) Aspartate Amino Transferase (AST) 21 U/L (15-37) Alanine Aminotransferase (ALT) 97 U/L (14-59) H Alkaline Phosphatase 102 U/L (46-116) Troponin I Quantitative < 0.017 ng/mL (0.000-0.055) Total Protein 7.4 g/dL (6.4-8.2) Albumin 3.4 g/dL (3.4-5.0) Albumin/Globulin Ratio 0.9 (1.0-1.7) L Lipase 150 U/L (73-393) Laboratory Tests 06/16/18 16:23 Laboratory Tests 06/16/18 16:50 EKG EKG [] Radiology/Procedures Radiology/Procedures PATIENT: RON SKELTON MACCOUNT: [id number]#: [id number] : 1980 LOCATION: ER AGE: 38 SEX: F EXAM STATUS: REG ER ORD. PHYSICIAN: ONDINA PEÑA APRN REASON: epigastric pain, cholecystectomy, leukocytosis PROCEDURE: ABDOMEN COMPLETE Indication:abd pain high blood sugar TECHNIQUE: Grayscale, color Doppler and spectral waveform is of the abdomen obtained. COMPARISON:None FINDINGS:Pancreas is not visualized due to overlying bowel gas. IVC is seen. No aortic aneurysm. Liver is mildly enlarged measuring 21 cm in longest dimension with diffusely increased echogenicity and decreased through transmission. Main portal vein is patent. CBD measures 7 mm in diameter and is within normal limits. Status post cholecystectomy. Right kidney measures 12 cm in length without hydronephrosis. Left kidney measures 13 cm in length without hydronephrosis. Spleen is mildly enlarged measuring 15 cm in length IMPRESSION: 1. Mild hepatosplenomegaly. 2. Hepatic steatosis. Electronically signed by: Mihai Rosa DO (06/16/2018 7:04 PM) [facility] DICTATED and SIGNED BY: MIHAI ROSA DO DATE: 06/16/181902 PATIENT: RON SKELTONCOUNT: [id number]#: [id number] : 1980 LOCATION: ER AGE: 38 SEX: F EXAM STATUS: REG ER ORD. PHYSICIAN: ONDINA PEÑA APRN REASON: epigastric pain ucg first PROCEDURE: CHEST PA & LATERAL PROCEDURE: CHEST PA LATERAL CLINICAL INDICATION: epigastric pain COMPARISON: None FINDINGS: No pneumothorax identified. Cardiac and mediastinal contours unremarkable. No pulmonary consolidation or acute airspace disease. No acute osseous abnormalities identified. IMPRESSION: No pulmonary consolidation or acute airspace disease. Electronically signed by: Mihai Rosa DO (06/16/2018 7:05 PM) [facility] DICTATED and SIGNED BY: MIHAI ROSA DO DATE: 06/16/181903 [] Course & Med Decision Making Course & Med Decision Making Pertinent Labs and Imaging studies reviewed. (See chart for details) D/w Dr. Ebenezer Alegria, accepts admission. Plan: admit Dragon Disclaimer Dragon Disclaimer This electronic medical record was generated, in whole or in part, using a voice recognition dictation system. Departure Departure Referrals: EBENEZER ALEGRIA MD (PCP) ONDINA PEÑA APRN Jun 16, 2018 16:29
[2018-06-16] MEDS ORDERED: IV NORMAL SALINE 1000ML BAG 1,000 ML IV ONE ×2 (16:30→17:30)
[2018-06-16 16:37] LABS: BILIRUBIN,URINE NEGATIVE (NEG); CLARITY,URINE CLEAR; COLOR,URINE YELLOW; NITRITE,URINE NEGATIVE (NEG); PH,URINE 5.5; PROTEIN,URINE NEGATIVE (NEG-TRACE); UROBILINOGEN,URINE 0.2 mg/dL (0.2 mg/dL)
[2018-06-16 16:39] LABS: BASO # 0.1 x10^3/uL (0.0-0.2); BASO % 1 % (0-3); EOS # 0.1 x10^3/uL (0.0-0.7); EOS % 0 % (0-3); HEMATOCRIT 42.4 % (36.0-47.0); HEMOGLOBIN 14.6 g/dL (12.0-15.5); LYMPH # 1.5 x10^3/uL (1.0-4.8); LYMPH % 7 % (24-48); MEAN CORPUSCULAR HEMOGLOBIN 32 pg (25-35); MEAN CORPUSCULAR HGB CONC 34 g/dL (31-37); MEAN CORPUSCULAR VOLUME 93 fL (79-100); MONO # 0.9 x10^3/uL (0.0-1.1); MONO % 4 % (0-9); NEUT % 88 % (31-73); PLATELET COUNT 241 x10^3/uL (140-400); RED BLOOD COUNT 4.55 x10^6/uL (3.50-5.40); WHITE BLOOD COUNT 22.7 x10^3/uL (4.0-11.0)
[2018-06-16] MEDS ORDERED: fentaNYL PF VIAL 100 MCG/2 ML VIAL IV ONE (16:45)
[2018-06-16] MEDS ORDERED: ONDANSETRON PF 4 MG/2 ML VIAL. IV ONE (16:45)
[2018-06-16 16:59] LABS: BASE EXCESS ABG -1 mmol/L (-3-3); HCO3 ABG 23 mmol/L (21-28); PCO2 ABG 34 mmHg (35-46); PO2 ABG 82 mmHg (85-108); SAT O2 ABG 96 % (92-99)
[2018-06-16 17:10] LABS: BACTERIA,URINE 0 /HPF (0-FEW); RBC,URINE OCC /HPF (0-2); SQUAMOUS EPITHELIAL CELL,UR MOD /LPF
[2018-06-16 17:22] LABS: ALBUMIN 3.4 g/dL (3.4-5.0); ALBUMIN/GLOBULIN RATIO 0.9 (1.0-1.7); CALCIUM 10.1 mg/dL (8.5-10.1); CREATININE 1.1 mg/dL (0.6-1.0); GFR 55.6; POTASSIUM 4.6 mmol/L (3.5-5.1); TOTAL BILIRUBIN 0.4 mg/dL (0.2-1.0); TOTAL PROTEIN 7.4 g/dL (6.4-8.2)
[2018-06-16] MEDS ORDERED: MORPHINE SULFATE 4 MG/ML VIAL. IV ONE ×2 (17:30→19:45)
--- NOTE | 2018-06-16 17:56 | EKG ---
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
[2018-06-16 18:37] LABS: % BANDS 2 % (0-9); % LYMPHS 4 % (24-48); % MONOS 3 % (0-10); % MYELOS 1 % (0-0); % SEGS 90 % (35-66); PLT ESTIMATE ADEQUATE (ADEQUATE)
--- NOTE | 2018-06-16 19:07 | RAD ---
Indication:abd pain high blood sugar TECHNIQUE: Grayscale, color Doppler and spectral waveform is of the abdomen obtained. COMPARISON:None FINDINGS:Pancreas is not visualized due to overlying bowel gas. IVC is seen. No aortic aneurysm. Liver is mildly enlarged measuring 21 cm in longest dimension with diffusely increased echogenicity and decreased through transmission. Main portal vein is patent. CBD measures 7 mm in diameter and is within normal limits. Status post cholecystectomy. Right kidney measures 12 cm in length without hydronephrosis. Left kidney measures 13 cm in length without hydronephrosis. Spleen is mildly enlarged measuring 15 cm in length IMPRESSION: 1. Mild hepatosplenomegaly. 2. Hepatic steatosis. Electronically signed by: Mihai Rosa DO (06/16/2018 7:04 PM) [facility]
--- NOTE | 2018-06-16 19:08 | RAD ---
PROCEDURE: CHEST PA LATERAL CLINICAL INDICATION: epigastric pain COMPARISON: None FINDINGS: No pneumothorax identified. Cardiac and mediastinal contours unremarkable. No pulmonary consolidation or acute airspace disease. No acute osseous abnormalities identified. IMPRESSION: No pulmonary consolidation or acute airspace disease. Electronically signed by: Mihai Rosa DO (06/16/2018 7:05 PM) [facility]
[2018-06-16] MEDS ORDERED: INSULIN,REGULAR 150 UNIT DRIP 150 ML IV ONE (20:00)
[2018-06-16] MEDS ORDERED: ONDANSETRON PF 4 MG/2 ML VIAL. IV PRN (20:00)
[2018-06-16] MEDS ORDERED: INSULIN GLARGINE 300 UNITS/3 ML INSULN.PEN. SQ SCH (21:00)
[2018-06-16 21:50] VITALS: BP 105/66
[2018-06-16] MEDS: MORPHINE SULFATE 4 MG/ML VIAL. IV PRN (22:06)
[2018-06-16] MEDS: IV NORMAL SALINE 1000ML BAG 1,000 ML IV SCH (22:06)
[2018-06-17] VITALS (7 sets, daily range): BP systolic 93–136; BP diastolic 53–80
[2018-06-17] MEDS ORDERED: INFLUENZA VAX SCREEN BY RX. MC PRN (00:15)
[2018-06-17] MEDS ORDERED: PANT20TA2 PO (00:15)
[2018-06-17] MEDS ORDERED: DESV25TA2 PO (00:15)
[2018-06-17] MEDS ORDERED: DULO60CA44 PO (00:15)
[2018-06-17] MEDS ORDERED: DEXT20CA PO (00:15)
[2018-06-17] MEDS ORDERED: CLON0.5T11 PO (00:15)
[2018-06-17] MEDS: MORPHINE SULFATE 4 MG/ML VIAL. IV PRN ×4 (00:29→08:20)
[2018-06-17 04:49] LABS: BASO # 0.1 x10^3/uL (0.0-0.2); BASO % 1 % (0-3); EOS # 0.2 x10^3/uL (0.0-0.7); EOS % 1 % (0-3); HEMATOCRIT 39.5 % (36.0-47.0); HEMOGLOBIN 13.7 g/dL (12.0-15.5); LYMPH # 4.1 x10^3/uL (1.0-4.8); LYMPH % 24 % (24-48); MEAN CORPUSCULAR HEMOGLOBIN 32 pg (25-35); MEAN CORPUSCULAR HGB CONC 35 g/dL (31-37); MEAN CORPUSCULAR VOLUME 92 fL (79-100); MONO % 6 % (0-9); NEUT # 11.5 x10^3uL (1.8-7.7); NEUT % 68 % (31-73); PLATELET COUNT 231 x10^3/uL (140-400); RED CELL DISTRIBUTION WIDTH 16.1 % (11.5-14.5); WHITE BLOOD COUNT 16.9 x10^3/uL (4.0-11.0)
[2018-06-17 05:43] LABS: CALCIUM 9.3 mg/dL (8.5-10.1); CREATININE 0.8 mg/dL (0.6-1.0); GFR 80.3; POTASSIUM 3.8 mmol/L (3.5-5.1)
[2018-06-17] MEDS: IV NORMAL SALINE 1000ML BAG 1,000 ML IV SCH (06:07)
--- NOTE | 2018-06-17 08:52 | PDOC ---
Provider Note Provider Note [id number] EBENEZER ALEGRIA MD Jun 17, 2018 08:52
[2018-06-17] MEDS ORDERED: DEXTROSE 50% 25 GM / 50ML DISP.SYRIN. IV PRN (09:00)
--- NOTE | 2018-06-17 09:32 | HP ---
ADMIT DATE: 06/16/2018 CHIEF COMPLAINT: Hyperglycemia. HISTORY OF PRESENT ILLNESS: A 38-year-old white female who has been having troubles with episodic hypoglycemia recently when she was taking Jardiance and then Januvia had been added. She had been in the hospital twice with low blood sugars and ultimately medications were stopped to see what she actually needed. She cannot take metformin because of GI intolerance. Within a week of being off both meds, her blood sugars started running high. She got dizziness, weakness, visual loss, fatigue and came in with high blood sugar. She has been on insulin overnight at a dose of about 3 units per hour and has been doing well and feeling better. History reveals that she was taking Jardiance for about 2-3 months and that drug was inadequate based on home blood sugars, so Januvia was added and then she has had some low blood sugar since then. A1c ranges around 7.9 most recently. PAST MEDICAL HISTORY MEDICATIONS: Pristiq recently started, clonazepam and Protonix. ALLERGIES: No drug allergies. No other serious known medical problems. FAMILY HISTORY: Positive for diabetes in her father. SOCIAL HISTORY: She is a smoker. , physically active, working, nondrinker. REVIEW OF SYSTEMS: Unremarkable. OBJECTIVE: ENT: All within normal limits. NECK: No masses, nodes or bruits. LUNGS: Clear. CARDIOVASCULAR: Regular rate. No tachycardia. ABDOMEN: Soft, benign and nontender. EXTREMITIES: Unremarkable. NEUROLOGIC: Physiologic and nonfocal. ASSESSMENT: Recurrent episodes of hypoglycemia secondary to oral medications and now hyperglycemic off medications. The drug that appears to cause the hypoglycemia for her was Januvia. PLAN: We will discontinue insulin, stay off Jardiance, and resume Januvia half the usual dose, given here Tradjenta. We will monitor her given her recurrence for hypoglycemia today and likely discharge in the morning with outpatient plan. EBENEZER ALEGRIA MD DR: GINO/janett JOB#: [id number] / [id number]
[2018-06-17] MEDS: clonazePAM 0.5 MG TABLET PO SCH ×3 (10:35→20:03)
[2018-06-17] MEDS: PANTOPRAZOLE 40 MG TABLET.DR. PO SCH (10:35)
[2018-06-17] MEDS: DESVENLAFAXINE 25 MG TAB.ER.24H PO SCH (10:36)
[2018-06-17] MEDS: LINAGLIPTIN 5 MG TABLET PO SCH (10:36)
[2018-06-17] MEDS: traMADol 50 MG TABLET PO PRN ×2 (12:54→20:02)
[2018-06-17] MEDS ORDERED: INSULIN GLARGINE 300 UNITS/3 ML INSULN.PEN. SQ ONE (17:15)
[2018-06-18 03:00] VITALS: BP 120/79
[2018-06-18 07:00] VITALS: BP 116/79
[2018-06-18] MEDS: PANTOPRAZOLE 40 MG TABLET.DR. PO SCH (08:21)
[2018-06-18] MEDS: clonazePAM 0.5 MG TABLET PO SCH (08:21)
[2018-06-18] MEDS: DESVENLAFAXINE 25 MG TAB.ER.24H PO SCH (08:22)
--- NOTE | 2018-06-18 08:24 | DISCH ---
DISCHARGE INSTRUCTIONS Condition on Discharge Condition on Discharge: Stable Activity After Discharge Activity Instructions for Disc: Resume previous activity, Activity as tolerated Weight Bearing Status after Di: As tolerated Diet after Discharge Diet after Discharge: Diabetic No Calorie Level Follow-Up Follow up with: scheduled Treatment/Equipment after DC Adaptive Equipment Issued: None EBENEZER ALEGRIA MD Jun 18, 2018 08:24
--- NOTE | 2018-06-18 08:27 | PDOC ---
Provider Note Provider Note [id number] EBENEZER ALEGRIA MD Jun 18, 2018 08:27
[2018-06-18] MEDS ORDERED: LINAGLIPTIN 5 MG TABLET PO SCH (09:00)
[2018-06-18] MEDS: LINAGLIPTIN 5 MG TABLET PO SCH (09:00)
--- NOTE | 2018-06-18 16:01 | DS ---
DATE OF DISCHARGE: 06/18/2018 HOSPITAL SUMMARY: A 38-year-old white female who was having recurrent hypoglycemic episodes while taking Jardiance and Januvia, has been taken off both medicines and then became hyperglycemic, blood sugar around 400 with weakness, dizziness and fatigue. She had high glucose in her urine and high blood sugar with the labs were all normal except for a reactive leukocytosis. She was given some insulin drip overnight and her sugars came down and then started on low dose Tradjenta and her blood sugars are running in the 200-250 range. She is comfortable to be discharged and followed as an outpatient at this point. FINAL DIAGNOSES: 1. Hyperglycemia secondary to type 2 diabetes mellitus. 2. Reactive leukocytosis. OPERATION, PROCEDURES, COMPLICATIONS, AND CONSULTATIONS: None. DISPOSITION: She will resume Januvia only, but 50 mg daily as she cannot afford the full dose. She is to remain off Jardiance. If Januvia at that dose is not adequate, then we will have to consider stopping that drug or adding low dose Actos as the only affordable alternative for her that has to be a generic drug. She is aware that did not know how well this strategy will work until we performed and follow as an outpatient and she is comfortable to try this. EBENEZER ALEGRIA MD DR: GINO/janett JOB#: [id number] / [id number]
== END 2018-06-18 09:40 | disposition home or self-care (01) | DRG 639 ==
LOC: ER 15:25 → 5 SOUTH 19:30
PROVIDERS: ADMIT Family Medicine; ATTEND Family Medicine
DX: E11.65 Type 2 diabetes mellitus with hyperglycemia (principal); K75.81 Nonalcoholic steatohepatitis (NASH); F41.9 Anxiety disorder, unspecified; F32.9 Major depressive disorder, single episode, unspecified; F90.9 Attention-deficit hyperactivity disorder, unspecified type; F17.210 Nicotine dependence, cigarettes, uncomplicated; D72.828 Other elevated white blood cell count; Z90.49 Acquired absence of other specified parts of digestive tract; Z90.710 Acquired absence of both cervix and uterus; Z79.84 Long term (current) use of oral hypoglycemic drugs; Z83.3 Family history of diabetes mellitus; Z91.14 Patient's other noncompliance with medication regimen
CPT/HCPCS: 36415; 36600; 71046; 76700; 80048; 80053; 81001; 82805; 82962; 83690; 83930; 84484; 85007; 85025; 90471; 90756; 93005; 96361; 96365; 96375; 96376; J1815; J2270; J2405; J3010; J7030; 99285-25; Q2035

== ENCOUNTER 2018-06-22 01:09 | Inpatient (IN) | payer BC ==
[~2018-06-22] VITALS: Ht 162.6 cm; Wt 87.5 kg
[~2018-06-22 01:09] MED LIST changes: +CLON0.5T11 PO; +DESV25TA2 PO; +DEXT20CA PO; +DULO60CA44 PO; +PANT20TA2 PO
--- NOTE | 2018-06-22 02:09 | PHYS DOC ---
Past Medical History Past Medical History: Anxiety, Depression, Diabetes-Type II, Other Additional Past Medical Histor: NON-ALCHOL RELATED FATTY LIVER, HYDRONAITIS Past Surgical History: Cholecystectomy, Hysterectomy, Tonsillectomy Additional Past Surgical Histo: bilateral ankles, multiple abscess removal surgerieS, breast reduction Alcohol Use: None Drug Use: None Adult General Chief Complaint Chief Complaint: HYPERGLYCEMIA HPI HPI Patient is a 38 year old female who presents with abdominal pain and high blood sugar. Patient states she began to have abdominal pain earlier today. Pain is diffuse and is associated with some mild abdominal distention. She had some nausea but no vomiting. The patient also states her blood glucose levels have been too high for her metered to read at home. He has had prior hysterectomy and cholecystectomy. She denies urinary symptoms. No fever or chills. Pain is rated to be severe right now. Review of Systems Review of Systems Constitutional: Denies fever or chills Eyes: Denies change in visual acuity HENT: Denies nasal congestion or sore throat Respiratory: Denies cough or shortness of breath Cardiovascular: No additional information GI: as documented above : Denies dysuria or hematuria Musculoskeletal: Denies back pain or joint pain Integument: Denies rash or skin lesions Neurologic: Denies headache All other systems were reviewed and found to be within normal limits, except as documented in this note. Current Medications Current Medications Current Medications Medications (Trade) Dose Ordered Sig/Taqueria Start Time Stop Time Status Last Admin Dose Admin Insulin Human Regular (HumuLIN R VIAL) 10 unit 1X ONCE 06/22/18 05:15 06/22/18 05:16 UNV Morphine Sulfate (Morphine Sulfate) 4 mg 1X ONCE 06/22/18 05:30 06/22/18 05:31 UNV Ondansetron HCl (Zofran) 4 mg PRN Q8HRS PRN 06/22/18 05:30 06/23/18 05:29 UNV Sodium Chloride 1,000 ml @ 150 mls/hr Q6H40M 06/22/18 05:16 06/23/18 05:15 UNV Allergies Allergies Allergies Coded Allergies Type Severity Reaction Last Updated Verified No Known Drug Allergies 05/11/15 No Physical Exam Physical Exam Constitutional: Well developed, well nourished, no acute distress, non-toxic appearance HENT: Normocephalic, atraumatic, bilateral external ears normal, oropharynx moist Eyes: PERRLA, EOMI Neck: Normal range of motion, no tenderness, supple Cardiovascular:Heart rate regular rhythm, no murmur Lungs & Thorax: Bilateral breath sounds clear to auscultation Abdomen: Bowel sounds normal, soft, mildly TTP diffusely but no guarding or rebound Skin: Warm, dry, no erythema, no rash. Back: No tenderness, no CVA tenderness. Extremities: No edema Neurologic: Alert and oriented X 3 Psychologic: Affect normal Current Patient Data Vital Signs Vital Signs Date Time Temp Pulse Resp B/P (MAP) Pulse Ox O2 Delivery O2 Flow Rate FiO2 06/22/18 05:00 118 116/71 (86) 96 Room Air 06/22/18 04:22 18 06/22/18 01:52 97.9 97.9 Lab Values Laboratory Tests Test 06/22/18 01:15 06/22/18 01:57 06/22/18 03:41 06/22/18 05:04 Urine Collection Type Unknown Urine Color Yellow Urine Clarity Clear Urine pH 7.0 Urine Specific [place] >=1.030 Urine Protein Negative mg/dL (NEG-TRACE) Urine Glucose (UA) >=1000 mg/dL (NEG) Urine Ketones (Stick) Negative mg/dL (NEG) Urine Blood Negative (NEG) Urine Nitrite Negative (NEG) Urine Bilirubin Negative (NEG) Urine Urobilinogen Dipstick 0.2 mg/dL (0.2 mg/dL) Urine Leukocyte Esterase Negative (NEG) Urine RBC 0 /HPF (0-2) Urine WBC Occ /HPF (0-4) Urine Squamous Epithelial Cells Few /LPF Urine Bacteria 0 /HPF (0-FEW) White Blood Count 10.7 x10^3/uL (4.0-11.0) Red Blood Count 4.72 x10^6/uL (3.50-5.40) Hemoglobin 15.1 g/dL (12.0-15.5) Hematocrit 43.9 % (36.0-47.0) Mean Corpuscular Volume 93 fL (79-100) Mean Corpuscular Hemoglobin 32 pg (25-35) Mean Corpuscular Hemoglobin Concent 34 g/dL (31-37) Red Cell Distribution Width 16.4 % (11.5-14.5) H Platelet Count 248 x10^3/uL (140-400) Neutrophils (%) (Auto) 87 % (31-73) H Lymphocytes (%) (Auto) 10 % (24-48) L Monocytes (%) (Auto) 2 % (0-9) Eosinophils (%) (Auto) 0 % (0-3) Basophils (%) (Auto) 1 % (0-3) Neutrophils # (Auto) 9.3 x10^3uL (1.8-7.7) H Lymphocytes # (Auto) 1.1 x10^3/uL (1.0-4.8) Monocytes # (Auto) 0.2 x10^3/uL (0.0-1.1) Eosinophils # (Auto) 0.0 x10^3/uL (0.0-0.7) Basophils # (Auto) 0.1 x10^3/uL (0.0-0.2) Segmented Neutrophils % 85 % (35-66) H Band Neutrophils % 1 % (0-9) Lymphocytes % 12 % (24-48) L Monocytes % 1 % (0-10) Metamyelocytes % 1 % (0-0) H Platelet Estimate Adequate (ADEQUATE) Sodium Level 134 mmol/L (136-145) L Potassium Level 4.8 mmol/L (3.5-5.1) Chloride Level 97 mmol/L (98-107) L Carbon Dioxide Level 26 mmol/L (21-32) Anion Gap 11 (6-14) Blood Urea Nitrogen 12 mg/dL (7-20) Creatinine 1.1 mg/dL (0.6-1.0) H Estimated GFR (Cockcroft-Gault) 55.6 Glucose Level 646 mg/dL (70-99) *H Calcium Level 10.0 mg/dL (8.5-10.1) Total Bilirubin 0.4 mg/dL (0.2-1.0) Direct Bilirubin 0.2 mg/dL (0.0-0.2) Aspartate Amino Transferase (AST) 62 U/L (15-37) H Alanine Aminotransferase (ALT) 141 U/L (14-59) H Alkaline Phosphatase 125 U/L (46-116) H Total Protein 7.6 g/dL (6.4-8.2) Albumin 3.8 g/dL (3.4-5.0) Lipase 173 U/L (73-393) Glucose (Fingerstick) 522 mg/dL (70-99) *H 528 mg/dL (70-99) *H Laboratory Tests 06/22/18 01:57 Laboratory Tests 06/22/18 01:57 EKG EKG [] Radiology/Procedures Radiology/Procedures [] Course & Med Decision Making Course & Med Decision Making Pertinent Labs and Imaging studies reviewed. (See chart for details) 02:00: Patient is seen and examined. Orders are placed for standard abdominal pain workup, IV fluids, pain medication, and CT scan of the abdomen. 05:20: Patient was evaluated in the emergency department for abdominal pain. This is the second visit over the last 7 days for similar presentation. She is found to have blood glucose levels over 600. Her abdominal exam was benign. She just underwent CT scan and ultrasound recently so no additional imaging was completed. Her pain did improve mildly after 2 L of normal saline but it was difficult to control the patient's blood glucose levels. She received 5 units of IV regular insulin with no response. She received a second dose of 10 units of regular insulin. Her blood glucose came down only to the 500s. Given that this is her second visit, patient will be admitted for diabetes management. She has been diabetic for 7 years. She has never been placed on insulin. Additionally, after 2 L of normal saline, the patient continued to have a resting tachycardia with a heart rate of 115. Additional IV fluids are started in the ER. Bridge orders are placed. It is unclear if there is endocrinology available for inpatient consultation on this patient, but she may benefit from an insulin drip to gain some knowledge of her daily insulin requirements. This order is deferred to the hospitalist for consideration. She is agreeable to the plan of care including admission. Hemoglobin A1c, thyroid studies, and lipid panels are added to her lab panel. Dragon Disclaimer Dragon Disclaimer This electronic medical record was generated, in whole or in part, using a voice recognition dictation system. Departure Departure Referrals: JANET FULLER (PCP) CYNDY JUAREZ DO Jun 22, 2018 02:09
[2018-06-22 02:14] LABS: BASO # 0.1 x10^3/uL (0.0-0.2); BASO % 1 % (0-3); EOS % 0 % (0-3); HEMATOCRIT 43.9 % (36.0-47.0); HEMOGLOBIN 15.1 g/dL (12.0-15.5); LYMPH # 1.1 x10^3/uL (1.0-4.8); LYMPH % 10 % (24-48); MEAN CORPUSCULAR HEMOGLOBIN 32 pg (25-35); MEAN CORPUSCULAR HGB CONC 34 g/dL (31-37); MEAN CORPUSCULAR VOLUME 93 fL (79-100); MONO # 0.2 x10^3/uL (0.0-1.1); MONO % 2 % (0-9); NEUT # 9.3 x10^3uL (1.8-7.7); NEUT % 87 % (31-73); PLATELET COUNT 248 x10^3/uL (140-400); RED BLOOD COUNT 4.72 x10^6/uL (3.50-5.40); RED CELL DISTRIBUTION WIDTH 16.4 % (11.5-14.5); WHITE BLOOD COUNT 10.7 x10^3/uL (4.0-11.0)
[2018-06-22] MEDS ORDERED: ONDANSETRON PF 4 MG/2 ML VIAL. IV ONE (02:15)
[2018-06-22] MEDS ORDERED: IV NORMAL SALINE 1000ML BAG 1,000 ML IV ONE ×2 (02:15→04:00)
[2018-06-22] MEDS ORDERED: MORPHINE SULFATE 4 MG/ML VIAL. IV ONE ×2 (02:15→05:30)
[2018-06-22 02:16] LABS: BILIRUBIN,URINE NEGATIVE (NEG); CLARITY,URINE CLEAR; COLOR,URINE YELLOW; NITRITE,URINE NEGATIVE (NEG); PROTEIN,URINE NEGATIVE (NEG-TRACE); UROBILINOGEN,URINE 0.2 mg/dL (0.2 mg/dL)
[2018-06-22 02:21] LABS: BACTERIA,URINE 0 /HPF (0-FEW); RBC,URINE 0 /HPF (0-2); SQUAMOUS EPITHELIAL CELL,UR FEW /LPF; WBC,URINE OCC /HPF (0-4)
[2018-06-22 02:30] LABS: ALBUMIN 3.8 g/dL (3.4-5.0); CREATININE 1.1 mg/dL (0.6-1.0); DIRECT BILIRUBIN 0.2 mg/dL (0.0-0.2); GFR 55.6; POTASSIUM 4.8 mmol/L (3.5-5.1); TOTAL BILIRUBIN 0.4 mg/dL (0.2-1.0); TOTAL PROTEIN 7.6 g/dL (6.4-8.2)
[2018-06-22] MEDS ORDERED: INSULIN REGULAR 100 UNIT/ML 3ML VIAL. IV ONE ×3 (03:00→05:30)
[2018-06-22] MEDS ORDERED: MORPHINE SULFATE 10 MG/ML VIAL. IV ONE (04:15)
[2018-06-22 04:39] LABS: % BANDS 1 % (0-9); % LYMPHS 12 % (24-48); % METAS 1 % (0-0); % MONOS 1 % (0-10); % SEGS 85 % (35-66); PLT ESTIMATE ADEQUATE (ADEQUATE)
[2018-06-22] MEDS ORDERED: ONDANSETRON PF 4 MG/2 ML VIAL. IV PRN ×2 (05:30→08:45)
[2018-06-22] MEDS: IV NORMAL SALINE 1000ML BAG 1,000 ML IV SCH ×4 (05:40→23:49)
[2018-06-22 05:51] LABS: CHOLESTEROL/HDL RATIO 2.2
[2018-06-22 05:58] LABS: FREE T4 1.2 ng/dL (0.76-1.46); THYROID STIM HORMONE (TSH) 0.684 uIU/mL (0.358-3.74)
[2018-06-22 07:15] VITALS: BP 132/76
[2018-06-22] MEDS ORDERED: IBUPROFEN 400 MG TABLET. PO PRN (08:45)
[2018-06-22] MEDS ORDERED: DEXTROSE 50% 25 GM / 50ML DISP.SYRIN. IV PRN (08:45)
[2018-06-22] MEDS ORDERED: metFORMIN 500 MG TABLET PO SCH (09:00)
[2018-06-22 10:36] VITALS: BP 96/63
[2018-06-22] MEDS: MORPHINE SULFATE 4 MG/ML VIAL. IV PRN ×5 (10:41→23:49)
--- NOTE | 2018-06-22 12:10 | PDOC1 ---
History and Physical Date of Admission Date of Admission DATE: 06/22/18 TIME: 12:04 Identification/Chief Complaint Chief Complaint abd pain, feeling unwell, high blood sugar at home Source Source: Caregiver, Chart review, Patient History of Present Illness History of Present Illness 38-year-old obese female, BMI 33.1, and diagnosed type 2 diabetes. Was just recently here a week ago for similar issue. Came in because of the above chief complaint was found to have a blood sugar of 600 at the emergency room. Hemoglobin A1c 7.9 within the last month. She was discharged on pioglitazone 15 mg once a day by her PCP. She is trying to shift PCP now. Her blood sugars are much better but she has gotten multiple doses of subcutaneous regular insulin 10 units multiple times. From the ER and thru compensation consulting manager MD overnight. I will start some 10 units 3 times a day lispro and along with 20 units daily at bedtime. She did try metformin before with intolerance, feeling unwell maybe some diarrhea. It is okay to resume pioglitazone. But given blood sugars of 600 I do think she needs to be started on some insulin She agrees to stay as we see the sugar trends and possibly home tomorrow once blood sugars much better controlled overnight. Past Medical History Endocrine: Diabetes Past Surgical History Past Surgical History: No pertinent history Family History Family History: Diabetes, Hypertension Social History Smoke: No ALCOHOL: none Drugs: None Current Medications Current Medications Current Medications Sodium Chloride 1,000 ml @ 1,000 mls/hr 1X ONCE IV Last administered on 06/22at 02:15; Start 06/22/18 at 02:15; Stop 06/22/18 at 03:14; Status DC Ondansetron HCl (Zofran) 6 mg 1X ONCE IV Last administered on 06/22/18at 03:10 ; Start 06/22/18 at 02:15; Stop 06/22/18 at 02:16; Status DC Morphine Sulfate (Morphine Sulfate) 4 mg 1X ONCE IV Last administered on 06/22at 03:11; Start 06/22/18 at 02:15; Stop 06/22/18 at 02:16; Status DC Insulin Human Regular (HumuLIN R VIAL) 5 unit 1X ONCE IV Last administered on 06/22/18at 03:06; Start 06/22/18 at 03:00; Stop 06/22/18 at 03:01; Status DC Insulin Human Regular (HumuLIN R VIAL) 10 unit 1X ONCE IV Last administered on 06/22/18at 04:20; Start 06/22/18 at 04:15; Stop 06/22/18 at 04:16; Status DC Sodium Chloride 1,000 ml @ 1,000 mls/hr 1X ONCE IV Last administered on 06/22at 03:50; Start 06/22/18 at 04:00; Stop 06/22/18 at 04:59; Status DC Morphine Sulfate (Morphine Sulfate) 6 mg 1X ONCE IV Last administered on 06/22at 04:22; Start 06/22/18 at 04:15; Stop 06/22/18 at 04:16; Status DC Insulin Human Regular (HumuLIN R VIAL) 10 unit 1X ONCE IV Last administered on 06/22/18at 05:41; Start 06/22/18 at 05:30; Stop 06/22/18 at 05:31; Status DC Ondansetron HCl (Zofran) 4 mg PRN Q8HRS PRN IV NAUSEA/VOMITING; Start at 05:30; Stop 06/22/18 at 08:35; Status DC Morphine Sulfate (Morphine Sulfate) 4 mg PRN Q2HR PRN IV PAIN Last administered on 06/22/18at 10:41; Start 06/22/18 at 05:30; Stop 06/23/18 at 05 :29 Sodium Chloride 1,000 ml @ 150 mls/hr Q6H40M IV Last administered on at 05:40; Start 06/22/18 at 05:30; Stop 06/23/18 at 05:29 Morphine Sulfate (Morphine Sulfate) 4 mg 1X ONCE IV Last administered on 06/22at 05:49; Start 06/22/18 at 05:30; Stop 06/22/18 at 05:31; Status DC Ondansetron HCl (Zofran) 4 mg PRN Q6HRS PRN IV NAUSEA/VOMITING; Start at 08:45 Ibuprofen (Motrin) 400 mg PRN Q6HRS PRN PO INFLAMMATION Last administered on at 09:13; Start 06/22/18 at 08:45 Insulin Human Lispro (HumaLOG) 0-9 UNITS TIDWMEALS SQ ; Start 06/22/18 at 12:00 Dextrose (Dextrose 50%-Water Syringe) 12.5 gm PRN Q15MIN PRN IV SEE COMMENTS; Start 06/22/18 at 08:45 Insulin Glargine (Lantus) 20 units QHS SQ ; Start 06/22/18 at 21:00 Insulin Human Lispro (HumaLOG) 10 units TIDWMEALS SQ ; Start 06/22/18 at 12:00 Metformin HCl (Glucophage) 500 mg BIDWMEALS PO ; Start 06/22/18 at 09:00 Active Scripts Active Reported Protonix (Pantoprazole Sodium) 20 Mg Tablet.dr 20 Mg PO DAILY Clonazepam 0.5 Mg Tablet 0.5 Mg PO TID Desvenlafaxine Succinate ER (Desvenlafaxine Succinate) 25 Mg Tab.er.24h 25 Mg PO DAILY Dextroamp-Amphet Er 20 Mg Cap (Dextroamphetamine/Amphetamine) 20 Mg Cap.er.24h 20 Mg PO PRN DAILY PRN Allergies Allergies: Coded Allergies: No Known Drug Allergies (Unverified , 05/11/15) ROS Review of System as per HPI The rest of ROS 14 point negative Physical Exam General: Alert, Oriented X3, Cooperative, No acute distress HEENT: Atraumatic, PERRLA, EOMI Lungs: Clear to auscultation, Normal air movement Heart: S1S2, RRR, no thrills, no rubs, no gallops, no murmurs Cardiovascular: S1, S2 Breasts: Normal, Rt breast nml w/o mass, Lt breast nml w/o mass, Nipples normal Abdomen: Normal bowel sounds, Soft, No tenderness, No hepatosplenomegaly, No masses Rectal Exam: not examined PELVIC: Nml ext genitalia Extremities: No clubbing, No cyanosis, No edema, Normal pulses, No tenderness/ swelling Skin: No rashes, No breakdown, No significant lesion Neuro: Normal gait, Normal speech, Strength at 5/5 X4 ext, Normal tone, Sensation intact, Cranial nerves 3-12 NL, Reflexes 2+ Psych/Mental Status: Mental status NL, Mood NL Vitals Vitals Vital Signs Date Time Temp Pulse Resp B/P (MAP) Pulse Ox O2 Delivery O2 Flow Rate FiO2 06/22/18 11:15 18 95 Room Air 06/22/18 10:36 97.7 104 96/63 (74) 97.7 Labs Labs Laboratory Tests Test 06/22/18 01:15 06/22/18 01:57 06/22/18 03:41 06/22/18 05:04 Urine Collection Type Unknown Urine Color Yellow Urine Clarity Clear Urine pH 7.0 Urine Specific [place] >=1.030 Urine Protein Negative mg/dL (NEG-TRACE) Urine Glucose (UA) >=1000 mg/dL (NEG) Urine Ketones (Stick) Negative mg/dL (NEG) Urine Blood Negative (NEG) Urine Nitrite Negative (NEG) Urine Bilirubin Negative (NEG) Urine Urobilinogen Dipstick 0.2 mg/dL (0.2 mg/dL) Urine Leukocyte Esterase Negative (NEG) Urine RBC 0 /HPF (0-2) Urine WBC Occ /HPF (0-4) Urine Squamous Epithelial Cells Few /LPF Urine Bacteria 0 /HPF (0-FEW) White Blood Count 10.7 x10^3/uL (4.0-11.0) Red Blood Count 4.72 x10^6/uL (3.50-5.40) Hemoglobin 15.1 g/dL (12.0-15.5) Hematocrit 43.9 % (36.0-47.0) Mean Corpuscular Volume 93 fL (79-100) Mean Corpuscular Hemoglobin 32 pg (25-35) Mean Corpuscular Hemoglobin Concent 34 g/dL (31-37) Red Cell Distribution Width 16.4 % (11.5-14.5) Platelet Count 248 x10^3/uL (140-400) Neutrophils (%) (Auto) 87 % (31-73) Lymphocytes (%) (Auto) 10 % (24-48) Monocytes (%) (Auto) 2 % (0-9) Eosinophils (%) (Auto) 0 % (0-3) Basophils (%) (Auto) 1 % (0-3) Neutrophils # (Auto) 9.3 x10^3uL (1.8-7.7) Lymphocytes # (Auto) 1.1 x10^3/uL (1.0-4.8) Monocytes # (Auto) 0.2 x10^3/uL (0.0-1.1) Eosinophils # (Auto) 0.0 x10^3/uL (0.0-0.7) Basophils # (Auto) 0.1 x10^3/uL (0.0-0.2) Segmented Neutrophils % 85 % (35-66) Band Neutrophils % 1 % (0-9) Lymphocytes % 12 % (24-48) Monocytes % 1 % (0-10) Metamyelocytes % 1 % (0-0) Platelet Estimate Adequate (ADEQUATE) Sodium Level 134 mmol/L (136-145) Potassium Level 4.8 mmol/L (3.5-5.1) Chloride Level 97 mmol/L (98-107) Carbon Dioxide Level 26 mmol/L (21-32) Anion Gap 11 (6-14) Blood Urea Nitrogen 12 mg/dL (7-20) Creatinine 1.1 mg/dL (0.6-1.0) Estimated GFR (Cockcroft-Gault) 55.6 Glucose Level 646 mg/dL (70-99) Calcium Level 10.0 mg/dL (8.5-10.1) Total Bilirubin 0.4 mg/dL (0.2-1.0) Direct Bilirubin 0.2 mg/dL (0.0-0.2) Aspartate Amino Transf (AST/SGOT) 62 U/L (15-37) Alanine Aminotransferase (ALT/SGPT) 141 U/L (14-59) Alkaline Phosphatase 125 U/L (46-116) Total Protein 7.6 g/dL (6.4-8.2) Albumin 3.8 g/dL (3.4-5.0) Triglycerides Level 62 mg/dL (0-150) Cholesterol Level 114 mg/dL (0-200) LDL Cholesterol, Calculated 51 mg/dL (0-100) VLDL Cholesterol, Calculated 12 mg/dL (0-40) Non-HDL Cholesterol Calculated 63 mg/dL (0-129) HDL Cholesterol 51 mg/dL (40-60) Cholesterol/HDL Ratio 2.2 Lipase 173 U/L (73-393) Thyroid Stimulating Hormone (TSH) 0.684 uIU/mL (0.358-3.74) Free Thyroxine 1.20 ng/dL (0.76-1.46) Glucose (Fingerstick) 522 mg/dL (70-99) 528 mg/dL (70-99) Test 06/22/18 06:17 06/22/18 08:19 06/22/18 11:45 Glucose (Fingerstick) 429 mg/dL (70-99) 288 mg/dL (70-99) 271 mg/dL (70-99) Laboratory Tests Test 06/22/18 01:15 06/22/18 01:57 06/22/18 03:41 06/22/18 05:04 Urine Collection Type Unknown Urine Color Yellow Urine Clarity Clear Urine pH 7.0 Urine Specific [place] >=1.030 Urine Protein Negative mg/dL (NEG-TRACE) Urine Glucose (UA) >=1000 mg/dL (NEG) Urine Ketones (Stick) Negative mg/dL (NEG) Urine Blood Negative (NEG) Urine Nitrite Negative (NEG) Urine Bilirubin Negative (NEG) Urine Urobilinogen Dipstick 0.2 mg/dL (0.2 mg/dL) Urine Leukocyte Esterase Negative (NEG) Urine RBC 0 /HPF (0-2) Urine WBC Occ /HPF (0-4) Urine Squamous Epithelial Cells Few /LPF Urine Bacteria 0 /HPF (0-FEW) White Blood Count 10.7 x10^3/uL (4.0-11.0) Red Blood Count 4.72 x10^6/uL (3.50-5.40) Hemoglobin 15.1 g/dL (12.0-15.5) Hematocrit 43.9 % (36.0-47.0) Mean Corpuscular Volume 93 fL (79-100) Mean Corpuscular Hemoglobin 32 pg (25-35) Mean Corpuscular Hemoglobin Concent 34 g/dL (31-37) Red Cell Distribution Width 16.4 % (11.5-14.5) Platelet Count 248 x10^3/uL (140-400) Neutrophils (%) (Auto) 87 % (31-73) Lymphocytes (%) (Auto) 10 % (24-48) Monocytes (%) (Auto) 2 % (0-9) Eosinophils (%) (Auto) 0 % (0-3) Basophils (%) (Auto) 1 % (0-3) Neutrophils # (Auto) 9.3 x10^3uL (1.8-7.7) Lymphocytes # (Auto) 1.1 x10^3/uL (1.0-4.8) Monocytes # (Auto) 0.2 x10^3/uL (0.0-1.1) Eosinophils # (Auto) 0.0 x10^3/uL (0.0-0.7) Basophils # (Auto) 0.1 x10^3/uL (0.0-0.2) Segmented Neutrophils % 85 % (35-66) Band Neutrophils % 1 % (0-9) Lymphocytes % 12 % (24-48) Monocytes % 1 % (0-10) Metamyelocytes % 1 % (0-0) Platelet Estimate Adequate (ADEQUATE) Sodium Level 134 mmol/L (136-145) Potassium Level 4.8 mmol/L (3.5-5.1) Chloride Level 97 mmol/L (98-107) Carbon Dioxide Level 26 mmol/L (21-32) Anion Gap 11 (6-14) Blood Urea Nitrogen 12 mg/dL (7-20) Creatinine 1.1 mg/dL (0.6-1.0) Estimated GFR (Cockcroft-Gault) 55.6 Glucose Level 646 mg/dL (70-99) Calcium Level 10.0 mg/dL (8.5-10.1) Total Bilirubin 0.4 mg/dL (0.2-1.0) Direct Bilirubin 0.2 mg/dL (0.0-0.2) Aspartate Amino Transf (AST/SGOT) 62 U/L (15-37) Alanine Aminotransferase (ALT/SGPT) 141 U/L (14-59) Alkaline Phosphatase 125 U/L (46-116) Total Protein 7.6 g/dL (6.4-8.2) Albumin 3.8 g/dL (3.4-5.0) Triglycerides Level 62 mg/dL (0-150) Cholesterol Level 114 mg/dL (0-200) LDL Cholesterol, Calculated 51 mg/dL (0-100) VLDL Cholesterol, Calculated 12 mg/dL (0-40) Non-HDL Cholesterol Calculated 63 mg/dL (0-129) HDL Cholesterol 51 mg/dL (40-60) Cholesterol/HDL Ratio 2.2 Lipase 173 U/L (73-393) Thyroid Stimulating Hormone (TSH) 0.684 uIU/mL (0.358-3.74) Free Thyroxine 1.20 ng/dL (0.76-1.46) Glucose (Fingerstick) 522 mg/dL (70-99) 528 mg/dL (70-99) Test 06/22/18 06:17 06/22/18 08:19 06/22/18 11:45 Glucose (Fingerstick) 429 mg/dL (70-99) 288 mg/dL (70-99) 271 mg/dL (70-99) VTE Prophylaxis Ordered VTE Prophylaxis Devices: Yes VTE Pharmacological Prophylaxi: Yes Assessment/Plan Assessment/Plan Diabetes type 2 uncontrolled-blood sugar 600 on admission-hemoglobin A1c 7. 08 June 2018 Obesity, BMI 33 Plan: Start lispro 10 mealtimes and long-acting 20 daily at bedtime Intolerance to metformin hence I did not start that Okay to continue pioglitazone Once blood sugar much better controlled then can discharge tomorrow ADA diet She is comfortable injecting herself with insulin Insulin/DM education KALANI MCDONALD MD Jun 22, 2018 12:10
[2018-06-22] MEDS ORDERED: PIOGLITAZONE 15 MG TABLET. PO SCH (12:15)
[2018-06-22] MEDS: INSULIN LISPRO 300 UNITS/3 ML INSULN.PEN. SQ SCH ×4 (14:08→17:26)
[2018-06-22 14:52] VITALS: BP 118/79
[2018-06-22 19:00] VITALS: BP 120/64
[2018-06-22] MEDS ORDERED: PIOG15TA42 PO (19:29)
[2018-06-22] MEDS ORDERED: DEXTROAMPHETAMINE PO PRN (20:00)
[2018-06-22] MEDS ORDERED: [UNRECOGNIZED DRUG - OTHER] PO PRN (20:00)
[2018-06-22] MEDS ORDERED: AMPHETAMINE PO PRN (20:00)
[2018-06-22 20:10] LABS: HEMOGLOBIN A1C 7.9 % (4.8-5.6)
[2018-06-22] MEDS: clonazePAM 0.5 MG TABLET PO SCH (20:38)
[2018-06-22] MEDS ORDERED: INSULIN GLARGINE 300 UNITS/3 ML INSULN.PEN. SQ SCH (21:00)
[2018-06-22 23:00] VITALS: BP 94/59
[2018-06-23 03:00] VITALS: BP 106/59
[2018-06-23] MEDS: MORPHINE SULFATE 4 MG/ML VIAL. IV PRN (05:09)
[2018-06-23 05:49] LABS: CALCIUM 8.6 mg/dL (8.5-10.1); CREATININE 0.7 mg/dL (0.6-1.0); GFR 93.6; POTASSIUM 3.9 mmol/L (3.5-5.1)
[2018-06-23 07:00] VITALS: BP 106/62
[2018-06-23] MEDS ORDERED: PANTOPRAZOLE 40 MG TABLET.DR. PO SCH (07:30)
[2018-06-23] MEDS: clonazePAM 0.5 MG TABLET PO SCH (07:35)
[2018-06-23] MEDS: INSULIN LISPRO 300 UNITS/3 ML INSULN.PEN. SQ SCH ×2 (07:36)
[2018-06-23] MEDS ORDERED: DESVENLAFAXINE 25 MG TAB.ER.24H PO SCH (09:00)
[2018-06-23] MEDS ORDERED: PIOGLITAZONE 15 MG TABLET. PO SCH (09:00)
[2018-06-23] MEDS ORDERED: GLYB2.5T2 PO (10:33)
[2018-06-23] MEDS ORDERED: INSU100I13 SQ (10:33)
--- NOTE | 2018-06-23 10:36 | PDOC3 ---
Discharge Summary Visit Information Date of Admission: Jun 22, 2018 Date of Discharge: Jun 23, 2018 Admitting Diagnosis Comment: Diabetes type 2 uncontrolled-blood sugar 600 on admission-hemoglobin A1c 7. 08 June 2018 Obesity, BMI 33 Brief Hospital Course Allergies Allergies Coded Allergies Type Severity Reaction Last Updated Verified No Known Drug Allergies 05/11/15 No Vital Signs Vital Signs Date Time Temp Pulse Resp B/P (MAP) Pulse Ox O2 Delivery O2 Flow Rate FiO2 06/23/18 07:00 97.7 71 20 106/62 (77) 93 Room Air 97.7 Lab Results Laboratory Tests Test 06/22/18 01:15 06/22/18 01:57 06/22/18 03:41 06/22/18 05:04 Urine Collection Type Unknown Urine Color Yellow Urine Clarity Clear Urine pH 7.0 Urine Specific [place] >=1.030 Urine Protein Negative mg/dL (NEG-TRACE) Urine Glucose (UA) >=1000 mg/dL (NEG) Urine Ketones (Stick) Negative mg/dL (NEG) Urine Blood Negative (NEG) Urine Nitrite Negative (NEG) Urine Bilirubin Negative (NEG) Urine Urobilinogen Dipstick 0.2 mg/dL (0.2 mg/dL) Urine Leukocyte Esterase Negative (NEG) Urine RBC 0 /HPF (0-2) Urine WBC Occ /HPF (0-4) Urine Squamous Epithelial Cells Few /LPF Urine Bacteria 0 /HPF (0-FEW) White Blood Count 10.7 x10^3/uL (4.0-11.0) Red Blood Count 4.72 x10^6/uL (3.50-5.40) Hemoglobin 15.1 g/dL (12.0-15.5) Hematocrit 43.9 % (36.0-47.0) Mean Corpuscular Volume 93 fL (79-100) Mean Corpuscular Hemoglobin 32 pg (25-35) Mean Corpuscular Hemoglobin Concent 34 g/dL (31-37) Red Cell Distribution Width 16.4 % (11.5-14.5) Platelet Count 248 x10^3/uL (140-400) Neutrophils (%) (Auto) 87 % (31-73) Lymphocytes (%) (Auto) 10 % (24-48) Monocytes (%) (Auto) 2 % (0-9) Eosinophils (%) (Auto) 0 % (0-3) Basophils (%) (Auto) 1 % (0-3) Neutrophils # (Auto) 9.3 x10^3uL (1.8-7.7) Lymphocytes # (Auto) 1.1 x10^3/uL (1.0-4.8) Monocytes # (Auto) 0.2 x10^3/uL (0.0-1.1) Eosinophils # (Auto) 0.0 x10^3/uL (0.0-0.7) Basophils # (Auto) 0.1 x10^3/uL (0.0-0.2) Segmented Neutrophils % 85 % (35-66) Band Neutrophils % 1 % (0-9) Lymphocytes % 12 % (24-48) Monocytes % 1 % (0-10) Metamyelocytes % 1 % (0-0) Platelet Estimate Adequate (ADEQUATE) Sodium Level 134 mmol/L (136-145) Potassium Level 4.8 mmol/L (3.5-5.1) Chloride Level 97 mmol/L (98-107) Carbon Dioxide Level 26 mmol/L (21-32) Anion Gap 11 (6-14) Blood Urea Nitrogen 12 mg/dL (7-20) Creatinine 1.1 mg/dL (0.6-1.0) Estimated GFR (Cockcroft-Gault) 55.6 Glucose Level 646 mg/dL (70-99) Hemoglobin A1c 7.9 % (4.8-5.6) Calcium Level 10.0 mg/dL (8.5-10.1) Total Bilirubin 0.4 mg/dL (0.2-1.0) Direct Bilirubin 0.2 mg/dL (0.0-0.2) Aspartate Amino Transf (AST/SGOT) 62 U/L (15-37) Alanine Aminotransferase (ALT/SGPT) 141 U/L (14-59) Alkaline Phosphatase 125 U/L (46-116) Total Protein 7.6 g/dL (6.4-8.2) Albumin 3.8 g/dL (3.4-5.0) Triglycerides Level 62 mg/dL (0-150) Cholesterol Level 114 mg/dL (0-200) LDL Cholesterol, Calculated 51 mg/dL (0-100) VLDL Cholesterol, Calculated 12 mg/dL (0-40) Non-HDL Cholesterol Calculated 63 mg/dL (0-129) HDL Cholesterol 51 mg/dL (40-60) Cholesterol/HDL Ratio 2.2 Lipase 173 U/L (73-393) Thyroid Stimulating Hormone (TSH) 0.684 uIU/mL (0.358-3.74) Free Thyroxine 1.20 ng/dL (0.76-1.46) Glucose (Fingerstick) 522 mg/dL (70-99) 528 mg/dL (70-99) Test 06/22/18 06:17 06/22/18 08:19 06/22/18 11:45 06/23/18 04:50 Glucose (Fingerstick) 429 mg/dL (70-99) 288 mg/dL (70-99) 271 mg/dL (70-99) Sodium Level 143 mmol/L (136-145) Potassium Level 3.9 mmol/L (3.5-5.1) Chloride Level 107 mmol/L (98-107) Carbon Dioxide Level 31 mmol/L (21-32) Anion Gap 5 (6-14) Blood Urea Nitrogen 15 mg/dL (7-20) Creatinine 0.7 mg/dL (0.6-1.0) Estimated GFR (Cockcroft-Gault) 93.6 Glucose Level 183 mg/dL (70-99) Calcium Level 8.6 mg/dL (8.5-10.1) Laboratory Tests Test 06/22/18 11:45 06/23/18 04:50 Glucose (Fingerstick) 271 mg/dL (70-99) Sodium Level 143 mmol/L (136-145) Potassium Level 3.9 mmol/L (3.5-5.1) Chloride Level 107 mmol/L (98-107) Carbon Dioxide Level 31 mmol/L (21-32) Anion Gap 5 (6-14) Blood Urea Nitrogen 15 mg/dL (7-20) Creatinine 0.7 mg/dL (0.6-1.0) Estimated GFR (Cockcroft-Gault) 93.6 Glucose Level 183 mg/dL (70-99) Calcium Level 8.6 mg/dL (8.5-10.1) Brief Hospital Course Ms. Negrete is a 38 old white female who is a known diabetic, was recently here 1 week ago by another PCP service for similar issues. She came in with a blood sugar of greater than 600 but no DKA. Just HONK. I managed with insulin essentially, we ariel up with a regimen of Lantus 20 units daily at bedtime and glyburide 2.5 by mouth twice a day. She has tried metformin in the past with adverse reactions of abdominal pain and diarrhea. She was started by her PCP pioglitazone 50 mg once a day I am okay continuing that. No history of CHF. But her blood sugars were running high mealtimes. Initially we started NovoLog 10 3 times a day. But she bottomed out to or she refused Lantus Levemir at night. In any case I think she will do well with more long-acting regimen insulin and OHA during mealtimes and she agrees. I did advise her to log her blood sugars and to follow up or establish a new PCP 1 months time. She understands Discharge time 31 minutes greater than 50% discharge education counseling coming up with a plan diabetes education etc. Rx on chart Consults performed none Procedures performed none Discharge Information Condition at Discharge: Improved, Stable Disposition/Orders: D/C to Home Scheduled Clonazepam (Clonazepam) 0.5 Mg Tablet, 0.5 MG PO TID, (Reported) Entered as Reported by: JULIA EDGAR on 06/17/1814 Last Action: Continued on 06/22/181946 by SOFIA ASKEW MD Glyburide (Glyburide) 2.5 Mg Tablet, 1 TAB PO BID, #180 Ref 1 Prescribed by: KALANI MCDONALD on 06/23/18 1033 Insulin Glargine,Hum.rec.anlog (Lantus Solostar) 100 Unit/1 Ml Insuln.pen, 20 UNIT SQ QHS, #15 Ref 5 Prescribed by: KALANI MCDONALD on 06/23/18 1033 Pantoprazole Sodium (Protonix) 20 Mg Tablet.dr, 20 MG PO DAILY, (Reported) Entered as Reported by: JULIA EDGAR on 06/17/1814 Last Action: Converted on 06/22/181946 by SOFIA ASKEW MD Discontinued Medications Desvenlafaxine Succinate (Desvenlafaxine Succinate ER) 25 Mg Tab.er.24h, 50 MG PO DAILY, (Reported) Entered as Reported by: JULIA EDGAR on 06/17/1814 Last Action: Discontinued on 06/22/181948 by SOFIA ASKEW MD Dextroamphetamine/Amphetamine (Dextroamp-Amphet Er 20 Mg Cap) 20 Mg Cap.er.24h, 20 MG PO PRN DAILY PRN for SEE COMMENTS, (Reported) Entered as Reported by: JULIA EDGAR on 06/17/1814 Last Action: Discontinued on 06/22/181948 by SOFIA ASKEW MD Duloxetine Hcl (Duloxetine Hcl) 60 Mg Capsule.dr, 60 MG PO DAILY, (Reported) Entered as Reported by: JULIA EDGAR on 06/17/1814 Pioglitazone Hcl (Actos) 15 Mg Tablet, 1 TAB PO DAILY, #30 Ref 5 (Reported) Entered as Reported by: FARHAN ALY on 06/22/181928 Last Action: Discontinued on 06/22/181948 by MD TAMARA NUÑEZ CHERRIE Y MD Jun 23, 2018 10:36
[2018-06-23 11:00] VITALS: BP 109/73
[2018-06-23] MEDS ORDERED: INSULIN LISPRO 300 UNITS/3 ML INSULN.PEN. SQ SCH (12:00)
[2018-06-23] MEDS ORDERED: INSULIN GLARGINE 300 UNITS/3 ML INSULN.PEN. SQ SCH (21:00)
== END 2018-06-23 12:57 | disposition home or self-care (01) | DRG 638 ==
LOC: ER 01:09 → 5 SOUTH 05:00
PROVIDERS: ADMIT Internal Medicine; ATTEND Internal Medicine
DX: E11.65 Type 2 diabetes mellitus with hyperglycemia (principal); R65.10 Systemic inflammatory response syndrome (SIRS) of non-infectious origin without acute organ dysfunction; E66.9 Obesity, unspecified; K76.0 Fatty (change of) liver, not elsewhere classified; F41.9 Anxiety disorder, unspecified; Z68.33 Body mass index [BMI] 33.0-33.9, adult; Z79.4 Long term (current) use of insulin; F32.9 Major depressive disorder, single episode, unspecified; Z82.49 Family history of ischemic heart disease and other diseases of the circulatory system; Z90.710 Acquired absence of both cervix and uterus; Z83.3 Family history of diabetes mellitus; Z79.899 Other long term (current) drug therapy; Z90.49 Acquired absence of other specified parts of digestive tract
CPT/HCPCS: 36415; 80048; 80061; 80076; 81001; 82962; 83036; 83690; 84439; 84443; 85007; 85025; 96361; 96374; 96375; 96376; J1815; J2270; J2405; J7030; 99285-25

== ENCOUNTER 2018-06-28 22:49 | Emergency (ER) | payer BC ==
[~2018-06-28] VITALS: Ht 162.6 cm; Wt 86.2 kg
[~2018-06-28 22:49] MED LIST changes: +GLYB2.5T2 PO; +INSU100I13 SQ; +PIOG15TA42 PO
[2018-06-28 23:29] LABS: BASO # 0.1 x10^3/uL (0.0-0.2); BASO % 1 % (0-3); EOS # 0.2 x10^3/uL (0.0-0.7); EOS % 2 % (0-3); HEMATOCRIT 40.7 % (36.0-47.0); HEMOGLOBIN 14.2 g/dL (12.0-15.5); LYMPH # 2.8 x10^3/uL (1.0-4.8); LYMPH % 25 % (24-48); MEAN CORPUSCULAR HEMOGLOBIN 32 pg (25-35); MEAN CORPUSCULAR HGB CONC 35 g/dL (31-37); MEAN CORPUSCULAR VOLUME 91 fL (79-100); MONO # 0.8 x10^3/uL (0.0-1.1); MONO % 7 % (0-9); NEUT # 7.6 x10^3uL (1.8-7.7); NEUT % 66 % (31-73); PLATELET COUNT 220 x10^3/uL (140-400); RED BLOOD COUNT 4.48 x10^6/uL (3.50-5.40); RED CELL DISTRIBUTION WIDTH 15.5 % (11.5-14.5); WHITE BLOOD COUNT 11.4 x10^3/uL (4.0-11.0)
[2018-06-28 23:30] LABS: BILIRUBIN,URINE NEGATIVE (NEG); CLARITY,URINE CLEAR; COLOR,URINE YELLOW; NITRITE,URINE NEGATIVE (NEG); PROTEIN,URINE NEGATIVE (NEG-TRACE); UROBILINOGEN,URINE 0.2 mg/dL (0.2 mg/dL)
[2018-06-28] MEDS: FAMOTIDINE 20 MG/2 ML VIAL IVP ONE (23:36)
[2018-06-28] MEDS: ONDANSETRON PF 4 MG/2 ML VIAL. IV ONE (23:36)
[2018-06-28] MEDS: IV NORMAL SALINE 1000ML BAG 1,000 ML IV ONE (23:36)
[2018-06-28 23:37] LABS: RBC,URINE 0 /HPF (0-2)
[2018-06-28 23:38] LABS: BACTERIA,URINE FEW /HPF (0-FEW); SQUAMOUS EPITHELIAL CELL,UR MOD /LPF
[2018-06-28 23:45] LABS: CALCIUM 9.4 mg/dL (8.5-10.1); CREATININE 0.9 mg/dL (0.6-1.0); GFR 70.1; POTASSIUM 3.7 mmol/L (3.5-5.1)
[2018-06-28 23:49] LABS: ALBUMIN 3.4 g/dL (3.4-5.0); ALBUMIN/GLOBULIN RATIO 0.9 (1.0-1.7); TOTAL BILIRUBIN 0.4 mg/dL (0.2-1.0); TOTAL PROTEIN 7.3 g/dL (6.4-8.2)
--- NOTE | 2018-06-29 00:03 | PHYS DOC ---
Past Medical History Past Medical History: Anxiety, Depression, Diabetes-Type II, Other Additional Past Medical Histor: NON-ALCHOL RELATED FATTY LIVER, HYDRONAITIS Past Surgical History: Cholecystectomy, Hysterectomy, Tonsillectomy Additional Past Surgical Histo: bilateral ankles, multiple abscess removal surgerieS, breast reduction Alcohol Use: None Drug Use: None Adult General Chief Complaint Chief Complaint: HYPERGLYCEMIA HPI HPI Patient is a 38 year old [f__sex] who presents with [] Review of Systems Review of Systems Constitutional: Denies fever or chills [] Eyes: Denies change in visual acuity, redness, or eye pain [] HENT: Denies nasal congestion or sore throat [] Respiratory: Denies cough or shortness of breath [] Cardiovascular: No additional information not addressed in HPI [] GI: Denies abdominal pain, nausea, vomiting, bloody stools or diarrhea [] : Denies dysuria or hematuria [] Musculoskeletal: Denies back pain or joint pain [] Integument: Denies rash or skin lesions [] Neurologic: Denies headache, focal weakness or sensory changes [] Endocrine: Denies polyuria or polydipsia [] All other systems were reviewed and found to be within normal limits, except as documented in this note. Current Medications Current Medications Current Medications Medications (Trade) Dose Ordered Sig/Taqueria Start Time Stop Time Status Last Admin Dose Admin Famotidine (Pepcid Vial) 20 mg 1X ONCE 06/28/18 23:30 06/28/18 23:31 DC 06/28/18 23:36 20 MG Insulin Human Regular (HumuLIN R VIAL) 10 unit 1X ONCE 06/29/18 00:30 06/29/18 00:31 Ondansetron HCl (Zofran) 4 mg 1X ONCE 06/28/18 23:30 06/28/18 23:31 DC 06/28/18 23:36 4 MG Sodium Chloride 1,000 ml @ 1,000 mls/hr 1X ONCE 06/28/18 23:30 06/29/18 00:29 06/28/18 23:36 1,000 MLS/HR Allergies Allergies Allergies Coded Allergies Type Severity Reaction Last Updated Verified No Known Drug Allergies 05/11/15 No Physical Exam Physical Exam Constitutional: Well developed, well nourished, no acute distress, non-toxic appearance. [] HENT: Normocephalic, atraumatic, bilateral external ears normal, oropharynx moist, no oral exudates, nose normal. [] Eyes: PERRLA, EOMI, conjunctiva normal, no discharge. [] Neck: Normal range of motion, no tenderness, supple, no stridor. [] Cardiovascular:Heart rate regular rhythm, no murmur [] Lungs & Thorax: Bilateral breath sounds clear to auscultation [] Abdomen: Bowel sounds normal, soft, no tenderness, no masses, no pulsatile masses. [] Skin: Warm, dry, no erythema, no rash. [] Back: No tenderness, no CVA tenderness. [] Extremities: No tenderness, no cyanosis, no clubbing, ROM intact, no edema. [] Neurologic: Alert and oriented X 3, normal motor function, normal sensory function, no focal deficits noted. [] Psychologic: Affect normal, judgement normal, mood normal. [] Current Patient Data Vital Signs Vital Signs Date Time Temp Pulse Resp B/P (MAP) Pulse Ox O2 Delivery O2 Flow Rate FiO2 06/28/18 23:01 98.6 113 18 154/84 (107) 95 Room Air 98.6 Lab Values Laboratory Tests Test 06/28/18 23:01 06/28/18 23:10 06/28/18 23:15 06/28/18 23:24 Urine Collection Type Unknown Urine Color Yellow Urine Clarity Clear Urine pH 5.0 Urine Specific [place] 1.025 Urine Protein Negative mg/dL (NEG-TRACE) Urine Glucose (UA) >=1000 mg/dL (NEG) Urine Ketones (Stick) Negative mg/dL (NEG) Urine Blood Negative (NEG) Urine Nitrite Negative (NEG) Urine Bilirubin Negative (NEG) Urine Urobilinogen Dipstick 0.2 mg/dL (0.2 mg/dL) Urine Leukocyte Esterase Negative (NEG) Urine RBC 0 /HPF (0-2) Urine WBC 1-4 /HPF (0-4) Urine Squamous Epithelial Cells Mod /LPF Urine Bacteria Few /HPF (0-FEW) Glucose (Fingerstick) 405 mg/dL (70-99) H White Blood Count 11.4 x10^3/uL (4.0-11.0) H Red Blood Count 4.48 x10^6/uL (3.50-5.40) Hemoglobin 14.2 g/dL (12.0-15.5) Hematocrit 40.7 % (36.0-47.0) Mean Corpuscular Volume 91 fL (79-100) Mean Corpuscular Hemoglobin 32 pg (25-35) Mean Corpuscular Hemoglobin Concent 35 g/dL (31-37) Red Cell Distribution Width 15.5 % (11.5-14.5) H Platelet Count 220 x10^3/uL (140-400) Neutrophils (%) (Auto) 66 % (31-73) Lymphocytes (%) (Auto) 25 % (24-48) Monocytes (%) (Auto) 7 % (0-9) Eosinophils (%) (Auto) 2 % (0-3) Basophils (%) (Auto) 1 % (0-3) Neutrophils # (Auto) 7.6 x10^3uL (1.8-7.7) Lymphocytes # (Auto) 2.8 x10^3/uL (1.0-4.8) Monocytes # (Auto) 0.8 x10^3/uL (0.0-1.1) Eosinophils # (Auto) 0.2 x10^3/uL (0.0-0.7) Basophils # (Auto) 0.1 x10^3/uL (0.0-0.2) Sodium Level 138 mmol/L (136-145) Potassium Level 3.7 mmol/L (3.5-5.1) Chloride Level 101 mmol/L (98-107) Carbon Dioxide Level 25 mmol/L (21-32) Anion Gap 12 (6-14) Blood Urea Nitrogen 10 mg/dL (7-20) Creatinine 0.9 mg/dL (0.6-1.0) Estimated GFR (Cockcroft-Gault) 70.1 BUN/Creatinine Ratio 11 (6-20) Glucose Level 411 mg/dL (70-99) H Calcium Level 9.4 mg/dL (8.5-10.1) Total Bilirubin 0.4 mg/dL (0.2-1.0) Aspartate Amino Transferase (AST) 63 U/L (15-37) H Alanine Aminotransferase (ALT) 169 U/L (14-59) H Alkaline Phosphatase 98 U/L (46-116) Total Protein 7.3 g/dL (6.4-8.2) Albumin 3.4 g/dL (3.4-5.0) Albumin/Globulin Ratio 0.9 (1.0-1.7) L POC Urine HCG, Qualitative Hcg negative (Negative) Laboratory Tests 06/28/18 23:15 Laboratory Tests 06/28/18 23:15 EKG EKG [] Radiology/Procedures Radiology/Procedures [] Course & Med Decision Making Course & Med Decision Making Pertinent Labs and Imaging studies reviewed. (See chart for details) [] Dragon Disclaimer Dragon Disclaimer This electronic medical record was generated, in whole or in part, using a voice recognition dictation system. Departure Departure Impression: Primary Impression: Hyperglycemia Disposition: HOME, SELF-CARE Condition: STABLE Referrals: JANET FULLER (PCP) Patient Instructions: Hyperglycemia, [id number] ANA FULLER DO Jun 29, 2018 00:03
[2018-06-29] MEDS: INSULIN REGULAR 100 UNIT/ML 3ML VIAL. SQ ONE (00:28)
[2018-06-29 00:46] VITALS: BP 116/70
== END 2018-06-29 00:55 | disposition home or self-care (01) ==
LOC: ER 22:49
DX: E11.65 Type 2 diabetes mellitus with hyperglycemia (principal); F41.9 Anxiety disorder, unspecified; F32.9 Major depressive disorder, single episode, unspecified; Z90.49 Acquired absence of other specified parts of digestive tract; Z90.710 Acquired absence of both cervix and uterus; Z90.89 Acquired absence of other organs
CPT/HCPCS: 36415; 80053; 81001; 81025; 82962; 85025; 96361; 96372; 96374; 96375; 99284; J1815; J2405; J3490; J7030

== ENCOUNTER 2018-08-31 20:50 | Emergency (ER) | payer BC ==
[~2018-08-31] VITALS: Ht 162.6 cm; Wt 87.1 kg
[~2018-08-31 20:50] MED LIST changes: +HYDR-3164 PO; -HYDR-971 PO
[2018-08-31] MEDS ORDERED: IV NORMAL SALINE 1000ML BAG 1,000 ML IV ONE (21:15)
[2018-08-31 21:26] LABS: BILIRUBIN,URINE NEGATIVE (NEG); CLARITY,URINE CLEAR; COLOR,URINE YELLOW; NITRITE,URINE NEGATIVE (NEG); PH,URINE 5.5; PROTEIN,URINE NEGATIVE (NEG-TRACE); UROBILINOGEN,URINE 0.2 mg/dL (0.2 mg/dL)
[2018-08-31 21:28] LABS: BASO # 0.1 x10^3/uL (0.0-0.2); BASO % 2 % (0-3); EOS # 0.2 x10^3/uL (0.0-0.7); EOS % 2 % (0-3); HEMATOCRIT 39.7 % (36.0-47.0); HEMOGLOBIN 13.8 g/dL (12.0-15.5); LYMPH # 2.4 x10^3/uL (1.0-4.8); LYMPH % 27 % (24-48); MEAN CORPUSCULAR HEMOGLOBIN 32 pg (25-35); MEAN CORPUSCULAR HGB CONC 35 g/dL (31-37); MEAN CORPUSCULAR VOLUME 91 fL (79-100); MONO # 0.7 x10^3/uL (0.0-1.1); MONO % 7 % (0-9); NEUT # 5.6 x10^3uL (1.8-7.7); NEUT % 63 % (31-73); PLATELET COUNT 190 x10^3/uL (140-400); RED BLOOD COUNT 4.38 x10^6/uL (3.50-5.40)
[2018-08-31 21:29] LABS: SQUAMOUS EPITHELIAL CELL,UR MANY /LPF
[2018-08-31 21:30] LABS: BACTERIA,URINE 0 /HPF (0-FEW); RBC,URINE TNTC /HPF (0-2); WBC,URINE 0 /HPF (0-4)
[2018-08-31] MEDS ORDERED: fentaNYL PF VIAL 100 MCG/2 ML VIAL IV ONE (21:30)
[2018-08-31] MEDS ORDERED: ONDANSETRON PF 4 MG/2 ML VIAL. IV ONE (21:30)
[2018-08-31 21:37] LABS: CALCIUM 9.6 mg/dL (8.5-10.1); CREATININE 0.8 mg/dL (0.6-1.0); GFR 80.3; POTASSIUM 4.1 mmol/L (3.5-5.1)
[2018-08-31 21:43] LABS: ALBUMIN 3.5 g/dL (3.4-5.0); TOTAL BILIRUBIN 0.4 mg/dL (0.2-1.0); TOTAL PROTEIN 7.1 g/dL (6.4-8.2)
--- NOTE | 2018-08-31 21:48 | RAD ---
PORTABLE CHEST 1V Clinical Indication: SOB Comparison: Two-view chest June 16, 2018. Findings: The cardiomediastinal silhouette is normal. Lungs are clear. There is no pneumothorax. No pleural effusion is appreciated. No acute bone abnormality. IMPRESSION: No acute cardiopulmonary process. Electronically signed by: Scot Zuniga MD (08/31/2018 9:44 PM) [facility]
[2018-08-31] MEDS ORDERED: INSULIN REGULAR 100 UNIT/ML 3ML VIAL. IV ONE (22:00)
[2018-08-31 22:30] VITALS: BP 112/58
[2018-08-31] MEDS ORDERED: KETOROLAC 15 MG/ML VIAL. IV ONE (22:30)
[2018-08-31] MEDS ORDERED: ONDA4TAB7 PO (22:44)
--- NOTE | 2018-08-31 23:19 | PHYS DOC ---
Past Medical History Past Medical History: Anxiety, Depression, Diabetes-Type II, Other Additional Past Medical Histor: NON-ALCHOL RELATED FATTY LIVER, HYDRONAITIS Past Surgical History: Cholecystectomy, Hysterectomy, Tonsillectomy Additional Past Surgical Histo: bilateral ankles, multiple abscess removal surgerieS, breast reduction Alcohol Use: None Drug Use: None Adult General Chief Complaint Chief Complaint: HYPERGLYCEMIA HPI HPI Patient is a 38 year old female presenting with nausea vomiting I blood sugar abdominal discomfort. Patient has had symptoms like this in the past when the blood sugar goes up she has been taking her insulin she has had the mild cough she may be catching a cold she gets frequent right-sided abdominal pain she has had 3 CT scans at this facility alone in the last few months all of which were negative acute. Patient denies fever occasional vomiting symptoms are moderate dull nonradiating Review of Systems Review of Systems Constitutional: Denies fever or chills [] Eyes: Denies change in visual acuity, redness, or eye pain [] HENT: Denies nasal congestion or sore throat [] Respiratory: Denies cough or shortness of breath [] Cardiovascular: No additional information not addressed in HPI [] GI: : Denies dysuria Musculoskeletal: Denies back pain or joint pain [] Integument: Denies rash or skin lesions [] Neurologic: Denies headache, focal weakness or sensory changes [] Endocrine: Deia [] All other systems were reviewed and found to be within normal limits, except as documented in this note. Current Medications Current Medications Current Medications Medications (Trade) Dose Ordered Sig/[place] Start Time Stop Time Status Last Admin Dose Admin Fentanyl Citrate (Fentanyl 2ml Vial) 50 mcg 1X ONCE 08/31/18 21:30 08/31/18 21:31 DC 08/31/18 21:22 50 MCG Insulin Human Regular (HumuLIN R VIAL) 10 unit 1X ONCE 08/31/18 22:00 08/31/18 22:01 DC 08/31/18 21:59 10 UNIT Ketorolac Tromethamine (Toradol 15mg Vial) 15 mg 1X ONCE 08/31/18 22:30 08/31/18 22:32 DC 08/31/18 22:34 15 MG Ondansetron HCl (Zofran) 4 mg 1X ONCE 08/31/18 21:30 08/31/18 21:31 DC 08/31/18 21:22 4 MG Sodium Chloride 1,000 ml @ 1,000 mls/hr 1X ONCE 08/31/18 21:15 08/31/18 22:14 DC 08/31/18 21:18 1,000 MLS/HR Allergies Allergies Allergies Coded Allergies Type Severity Reaction Last Updated Verified No Known Drug Allergies 05/11/15 No Physical Exam Physical Exam Constitutional: Well developed, well nourished, no acute distress, non-toxic appearance. [] HENT: Normocephalic, atraumatic, bilateral external ears normal, oropharynx dry , no oral exudates, nose normal. [] Eyes: PERRLA, EOMI, conjunctiva normal, no discharge. [] Neck: Normal range of motion, no tenderness, supple, no stridor. [] Cardiovascular:Heart rate regular rhythm, no murmur [] Lungs & Thorax: Bilateral breath sounds clear to auscultation [] Abdomen: Bowel sounds normal, soft, mild mid abdominal tenderness no McBurney's point tenderness, no masses, no pulsatile masses. [] Skin: Warm, dry, no erythema, no rash. [] Extremities: No tenderness, no cyanosis, no clubbing, ROM intact, no edema. [] Neurologic: Alert and oriented X 3, normal motor function, normal sensory function, no focal deficits noted. [] Psychologic: Affect normal, judgement normal, mood normal. [] Current Patient Data Vital Signs Vital Signs Date Time Temp Pulse Resp B/P (MAP) Pulse Ox O2 Delivery O2 Flow Rate FiO2 08/31/18 22:30 85 18 112/58 (76) 96 Room Air 08/31/18 20:55 98.3 98.3 Lab Values Laboratory Tests Test 08/31/18 20:56 08/31/18 20:59 08/31/18 21:15 08/31/18 21:40 Urine Collection Type Unknown Urine Color Yellow Urine Clarity Clear Urine pH 5.5 Urine Specific [place] >=1.030 Urine Protein Negative mg/dL (NEG-TRACE) Urine Glucose (UA) >=1000 mg/dL (NEG) Urine Ketones (Stick) Negative mg/dL (NEG) Urine Blood Large (NEG) Urine Nitrite Negative (NEG) Urine Bilirubin Negative (NEG) Urine Urobilinogen Dipstick 0.2 mg/dL (0.2 mg/dL) Urine Leukocyte Esterase Negative (NEG) Urine RBC Tntc /HPF (0-2) Urine WBC 0 /HPF (0-4) Urine Squamous Epithelial Cells Many /LPF Urine Bacteria 0 /HPF (0-FEW) Urine Mucus Mod /LPF Glucose (Fingerstick) 392 mg/dL (70-99) H 401 mg/dL (70-99) H White Blood Count 9.0 x10^3/uL (4.0-11.0) Red Blood Count 4.38 x10^6/uL (3.50-5.40) Hemoglobin 13.8 g/dL (12.0-15.5) Hematocrit 39.7 % (36.0-47.0) Mean Corpuscular Volume 91 fL (79-100) Mean Corpuscular Hemoglobin 32 pg (25-35) Mean Corpuscular Hemoglobin Concent 35 g/dL (31-37) Red Cell Distribution Width 15.0 % (11.5-14.5) H Platelet Count 190 x10^3/uL (140-400) Neutrophils (%) (Auto) 63 % (31-73) Lymphocytes (%) (Auto) 27 % (24-48) Monocytes (%) (Auto) 7 % (0-9) Eosinophils (%) (Auto) 2 % (0-3) Basophils (%) (Auto) 2 % (0-3) Neutrophils # (Auto) 5.6 x10^3uL (1.8-7.7) Lymphocytes # (Auto) 2.4 x10^3/uL (1.0-4.8) Monocytes # (Auto) 0.7 x10^3/uL (0.0-1.1) Eosinophils # (Auto) 0.2 x10^3/uL (0.0-0.7) Basophils # (Auto) 0.1 x10^3/uL (0.0-0.2) Sodium Level 138 mmol/L (136-145) Potassium Level 4.1 mmol/L (3.5-5.1) Chloride Level 100 mmol/L (98-107) Carbon Dioxide Level 29 mmol/L (21-32) Anion Gap 9 (6-14) Blood Urea Nitrogen 14 mg/dL (7-20) Creatinine 0.8 mg/dL (0.6-1.0) Estimated GFR (Cockcroft-Gault) 80.3 BUN/Creatinine Ratio 18 (6-20) Glucose Level 419 mg/dL (70-99) H Calcium Level 9.6 mg/dL (8.5-10.1) Total Bilirubin 0.4 mg/dL (0.2-1.0) Aspartate Amino Transferase (AST) 77 U/L (15-37) H Alanine Aminotransferase (ALT) 186 U/L (14-59) H Alkaline Phosphatase 101 U/L (46-116) Troponin I Quantitative < 0.017 ng/mL (0.000-0.055) Total Protein 7.1 g/dL (6.4-8.2) Albumin 3.5 g/dL (3.4-5.0) Albumin/Globulin Ratio 1.0 (1.0-1.7) Lipase 174 U/L (73-393) Test 08/31/18 22:26 Glucose (Fingerstick) 274 mg/dL (70-99) H Laboratory Tests 08/31/18 21:15 Laboratory Tests 08/31/18 21:15 EKG EKG [] Interpretation Time: EKG shows a normal sinus rhythm rate of 94 no acute ischemic changes noted interpreted by me time of encounter Radiology/Procedures Radiology/Procedures [] Impressions: Chest x-ray negative acute Course & Med Decision Making Course & Med Decision Making Pertinent Labs and Imaging studies reviewed. (See chart for details) 38 yo f with cc of hypeglycemia with nausea and vomiting. had some mild right side abdo pain, pt has had three ct scan's this year already in the last few months all eng acute. similar pattern of symptoms. dont think we should re: ct her now. feeling somewhat better after er treatment, tolerating PO. I did specifically discuss with her about the fact that I thought a CT was likely excessive radiation at this time but should she develop a fever or refractory pain in the next 1224 hrs. she should come back for reevaluation. She is agreeable to this. Patient was given a dose of insulin which brought her blood sugar down no anion gap LFTs noted these are old and has a history of hepatic steatosis no right upper quadrant tenderness patient was also advised to follow-up with primary care doctor to to the hematuria. No stones were seen on previous CT scans one of which was done fairly recently this seems less likely. Dragon Disclaimer Dragon Disclaimer This electronic medical record was generated, in whole or in part, using a voice recognition dictation system. Departure Departure Impression: Primary Impression: Hyperglycemia Disposition: 01 HOME, SELF-CARE Condition: STABLE Referrals: JANET FULLER (PCP) Patient Instructions: Hyperglycemia, [id number] Scripts Ondansetron Hcl (ZOFRAN) 4 Mg Tablet 4 MG PO PRN TID PRN for NAUSEA/VOMITING, #15 nausea/vomiting Prov: RENAY SKY MD 08/31/18 RENAY SKY MD Aug 31, 2018 23:19
--- NOTE | 2018-09-01 06:09 | EKG ---
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
== END 2018-08-31 23:00 | disposition home or self-care (01) ==
LOC: ER 20:50
DX: E11.649 Type 2 diabetes mellitus with hypoglycemia without coma (principal); R11.2 Nausea with vomiting, unspecified; R10.9 Unspecified abdominal pain; Z90.49 Acquired absence of other specified parts of digestive tract; Z90.710 Acquired absence of both cervix and uterus
CPT/HCPCS: 36415; 71045; 80053; 81001; 82962; 83690; 84484; 85025; 93005; 96361; 96374; 96375; 99284; J1815; J1885; J2405; J3010; J7030

== ENCOUNTER 2018-09-06 23:32 | Emergency (ER) | payer BC ==
[~2018-09-06] VITALS: Ht 162.6 cm; Wt 87.5 kg
[~2018-09-06 23:32] MED LIST changes: +ONDA4TAB7 PO
[2018-09-07] MEDS ORDERED: KETOROLAC 15 MG/ML VIAL. IV ONE (00:30)
[2018-09-07] MEDS ORDERED: ONDANSETRON PF 4 MG/2 ML VIAL. IV ONE (00:30)
[2018-09-07] MEDS ORDERED: FAMOTIDINE 20 MG/2 ML VIAL IVP ONE (00:30)
[2018-09-07] MEDS ORDERED: INSULIN REGULAR 100 UNIT/ML 3ML VIAL. SQ ONE (00:30)
[2018-09-07] MEDS ORDERED: IV NORMAL SALINE 1000ML BAG 1,000 ML IV ONE (00:30)
[2018-09-07 00:37] LABS: BASO % 0 % (0-3); EOS % 0 % (0-3); HEMATOCRIT 40.5 % (36.0-47.0); HEMOGLOBIN 14.2 g/dL (12.0-15.5); LYMPH # 0.6 x10^3/uL (1.0-4.8); LYMPH % 7 % (24-48); MEAN CORPUSCULAR HEMOGLOBIN 32 pg (25-35); MEAN CORPUSCULAR HGB CONC 35 g/dL (31-37); MEAN CORPUSCULAR VOLUME 91 fL (79-100); MONO % 1 % (0-9); NEUT # 7.5 x10^3uL (1.8-7.7); NEUT % 92 % (31-73); PLATELET COUNT 196 x10^3/uL (140-400); RED BLOOD COUNT 4.44 x10^6/uL (3.50-5.40); RED CELL DISTRIBUTION WIDTH 14.6 % (11.5-14.5); WHITE BLOOD COUNT 8.2 x10^3/uL (4.0-11.0)
[2018-09-07 00:38] LABS: BILIRUBIN,URINE NEGATIVE (NEG); CLARITY,URINE CLEAR; COLOR,URINE YELLOW; NITRITE,URINE NEGATIVE (NEG); PH,URINE 6.5; PROTEIN,URINE NEGATIVE (NEG-TRACE); UROBILINOGEN,URINE 0.2 mg/dL (0.2 mg/dL)
[2018-09-07 01:02] LABS: ALBUMIN 3.7 g/dL (3.4-5.0); ALBUMIN/GLOBULIN RATIO 0.9 (1.0-1.7); ALK PHOS 109 U/L (46-116); ALT (SGPT) 141 U/L (14-59); ANION GAP 12 (6-14); AST (SGOT) 45 U/L (15-37); BLOOD UREA NITROGEN 15 mg/dL (7-20); BUN/CREATININE RATIO 13 (6-20); CALCIUM 9.7 mg/dL (8.5-10.1); CARBON DIOXIDE 25 mmol/L (21-32); CHLORIDE 100 mmol/L (98-107); CREATININE 1.2 mg/dL (0.6-1.0); GFR 50.3; LIPASE 107 U/L (73-393); POTASSIUM 4.2 mmol/L (3.5-5.1); SODIUM 137 mmol/L (136-145); TOTAL BILIRUBIN 0.5 mg/dL (0.2-1.0)
[2018-09-07 01:20] LABS: BACTERIA,URINE FEW /HPF (0-FEW); RBC,URINE TNTC /HPF (0-2); SQUAMOUS EPITHELIAL CELL,UR OCC /LPF; WBC,URINE OCC /HPF (0-4)
[2018-09-07 01:32] LABS: GLUCOSE 501 mg/dL (70-99)
[2018-09-07 01:36] LABS: ACETONE NEG (NEG)
--- NOTE | 2018-09-07 01:45 | RAD ---
CT abdomen and pelvis without contrast. HISTORY: Lower abdominal pain CT scan of the abdomen and pelvis was done without contrast. Lung bases are clear. There is no effusion. Liver is normal in appearance. The patient's had a cholecystectomy. Spleen and right adrenal gland are normal. 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 Pancreas is unremarkable. There is no mass or hydronephrosis or calculus in the kidneys. A ureteral calculus is not identified. Appendix is normal. There is moderate stool in the colon. There is not evidence of a diverticulitis. Bladder is distended. Patient's had a hysterectomy. Stomach is distended etiology is nonspecific. There is no small bowel obstruction. IMPRESSION: 1. Gastric distention. 2. Myolipoma left adrenal gland 3. No abdominal or pelvic mass or other acute finding noted. 4. No bowel obstruction. Electronically signed by: Rj Winslow MD (09/07/2018 1:41 AM) [facility]
--- NOTE | 2018-09-07 01:52 | PHYS DOC ---
Past Medical History Past Medical History: Anxiety, Depression, Diabetes-Type II, Other Additional Past Medical Histor: NON-ALCHOL RELATED FATTY LIVER, HYDRONAITIS Past Surgical History: Cholecystectomy, Hysterectomy, Tonsillectomy Additional Past Surgical Histo: bilateral ankles, multiple abscess removal surgerieS, breast reduction Alcohol Use: None Drug Use: None Adult General Chief Complaint Chief Complaint: ABDOMINAL PAIN HPI HPI 38-year-old female presents with report of lower abdominal pain which is been ongoing for the past week. Patient also reports elevated blood sugar. Reports her doctors have recently adjusted her medication. Denies trauma. Reports she has a known appointment with a GI specialist on 09/23/2018. Patient concerned that she swallowed her tongue ring ball 2 days ago and it might be "stuck". Reports some associated nausea and vomiting 1 today. Denies any diarrhea. Denies fever or chills. Review of Systems Review of Systems Constitutional: Denies fever or chills [] Eyes: Denies change in visual acuity, redness, or eye pain [] HENT: Denies nasal congestion or sore throat [] Respiratory: Denies cough or shortness of breath [] Cardiovascular: Denies chest pain or palpitations GI: Reports abdominal pain, nausea, vomiting; denies diarrhea [] : Denies dysuria or hematuria [] Musculoskeletal: Denies back pain or joint pain [] Integument: Denies rash or skin lesions [] Neurologic: Denies headache, focal weakness or sensory changes [] Complete systems were reviewed and found to be within normal limits, except as documented in this note. Current Medications Current Medications Current Medications Medications (Trade) Dose Ordered Sig/[facility] Start Time Stop Time Status Last Admin Dose Admin Famotidine (Pepcid Vial) 20 mg 1X ONCE 09/07/18 00:30 09/07/18 00:31 DC 09/07/18 00:31 20 MG Fentanyl Citrate (Fentanyl 2ml Vial) 50 mcg 1X ONCE 09/07/18 02:00 09/07/18 02:01 DC 09/07/18 01:56 50 MCG Insulin Human Regular (HumuLIN R VIAL) 14 unit 1X ONCE 09/07/18 00:30 09/07/18 00:31 DC 09/07/18 00:33 14 UNIT Ketorolac Tromethamine (Toradol 15mg Vial) 15 mg 1X ONCE 09/07/18 00:30 09/07/18 00:31 DC 09/07/18 00:31 15 MG Ondansetron HCl (Zofran) 4 mg 1X ONCE 09/07/18 00:30 09/07/18 00:31 DC 09/07/18 00:31 4 MG Sodium Chloride 1,000 ml @ 1,000 mls/hr 1X ONCE 09/07/18 00:30 09/07/18 01:29 DC 09/07/18 00:32 1,000 MLS/HR Allergies Allergies Allergies Coded Allergies Type Severity Reaction Last Updated Verified levofloxacin Allergy Intermediate 09/06/18 Yes Physical Exam Physical Exam Constitutional: Well developed, well nourished, appears uncomfortable, non- toxic appearance. [] HENT: Normocephalic, atraumatic, oropharynx moist Eyes: Conjunctiva normal, no discharge. [] Neck: Normal range of motion, no tenderness, supple Cardiovascular:Heart rate regular rhythm, no murmur [] Lungs & Thorax: Bilateral breath sounds clear to auscultation [] Abdomen: , Soft, diffuse tenderness Skin: Warm, dry, no erythema, no rash. [] Back: No tenderness, no CVA tenderness. [] Extremities: No tenderness, ROM intact, no edema. [] Neurologic: Alert and oriented X 3, no focal deficits noted. [] Psychologic: Affect normal, judgement normal, mood normal. [] Current Patient Data Vital Signs Vital Signs Date Time Temp Pulse Resp B/P (MAP) Pulse Ox O2 Delivery O2 Flow Rate FiO2 09/07/18 02:30 114 18 132/81 (98) 99 09/06/18 23:50 97.8 Room Air 97.8 Lab Values Laboratory Tests Test 09/06/18 23:46 09/07/18 00:21 09/07/18 01:29 09/07/18 02:12 Glucose (Fingerstick) 475 mg/dL (70-99) H 483 mg/dL (70-99) H 420 mg/dL (70-99) H White Blood Count 8.2 x10^3/uL (4.0-11.0) Red Blood Count 4.44 x10^6/uL (3.50-5.40) Hemoglobin 14.2 g/dL (12.0-15.5) Hematocrit 40.5 % (36.0-47.0) Mean Corpuscular Volume 91 fL (79-100) Mean Corpuscular Hemoglobin 32 pg (25-35) Mean Corpuscular Hemoglobin Concent 35 g/dL (31-37) Red Cell Distribution Width 14.6 % (11.5-14.5) H Platelet Count 196 x10^3/uL (140-400) Neutrophils (%) (Auto) 92 % (31-73) H Lymphocytes (%) (Auto) 7 % (24-48) L Monocytes (%) (Auto) 1 % (0-9) Eosinophils (%) (Auto) 0 % (0-3) Basophils (%) (Auto) 0 % (0-3) Neutrophils # (Auto) 7.5 x10^3uL (1.8-7.7) Lymphocytes # (Auto) 0.6 x10^3/uL (1.0-4.8) L Monocytes # (Auto) 0.0 x10^3/uL (0.0-1.1) Eosinophils # (Auto) 0.0 x10^3/uL (0.0-0.7) Basophils # (Auto) 0.0 x10^3/uL (0.0-0.2) Segmented Neutrophils % 90 % (35-66) H Band Neutrophils % 4 % (0-9) Lymphocytes % 5 % (24-48) L Monocytes % 1 % (0-10) Platelet Estimate Adequate (ADEQUATE) Urine Collection Type Unknown Urine Color Yellow Urine Clarity Clear Urine pH 6.5 Urine Specific [place] 1.020 Urine Protein Negative mg/dL (NEG-TRACE) Urine Glucose (UA) >=1000 mg/dL (NEG) Urine Ketones (Stick) Negative mg/dL (NEG) Urine Blood Large (NEG) Urine Nitrite Negative (NEG) Urine Bilirubin Negative (NEG) Urine Urobilinogen Dipstick 0.2 mg/dL (0.2 mg/dL) Urine Leukocyte Esterase Negative (NEG) Urine RBC Tntc /HPF (0-2) Urine WBC Occ /HPF (0-4) Urine Squamous Epithelial Cells Occ /LPF Urine Bacteria Few /HPF (0-FEW) Sodium Level 137 mmol/L (136-145) Potassium Level 4.2 mmol/L (3.5-5.1) Chloride Level 100 mmol/L (98-107) Carbon Dioxide Level 25 mmol/L (21-32) Anion Gap 12 (6-14) Blood Urea Nitrogen 15 mg/dL (7-20) Creatinine 1.2 mg/dL (0.6-1.0) H Estimated GFR (Cockcroft-Gault) 50.3 BUN/Creatinine Ratio 13 (6-20) Glucose Level 501 mg/dL (70-99) *H Calcium Level 9.7 mg/dL (8.5-10.1) Total Bilirubin 0.5 mg/dL (0.2-1.0) Aspartate Amino Transferase (AST) 45 U/L (15-37) H Alanine Aminotransferase (ALT) 141 U/L (14-59) H Alkaline Phosphatase 109 U/L (46-116) Total Protein 8.0 g/dL (6.4-8.2) Albumin 3.7 g/dL (3.4-5.0) Albumin/Globulin Ratio 0.9 (1.0-1.7) L Lipase 107 U/L (73-393) Acetone Level Neg (NEG) Laboratory Tests 09/07/18 00:21 Laboratory Tests 09/07/18 00:21 EKG EKG [] Radiology/Procedures Radiology/Procedures PROCEDURE: CT ABDOMEN PELVIS WO CONTRAST CT abdomen and pelvis without contrast. HISTORY: Lower abdominal pain CT scan of the abdomen and pelvis was done without contrast. Lung bases are clear. There is no effusion. Liver is normal in appearance. The patient's had a cholecystectomy. Spleen and right adrenal gland are normal. 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 Pancreas is unremarkable. There is no mass or hydronephrosis or calculus in the kidneys. A ureteral calculus is not identified. Appendix is normal. There is moderate stool in the colon. There is not evidence of a diverticulitis. Bladder is distended. Patient's had a hysterectomy. Stomach is distended etiology is nonspecific. There is no small bowel obstruction. IMPRESSION: 1. Gastric distention. 2. Myolipoma left adrenal gland 3. No abdominal or pelvic mass or other acute finding noted. 4. No bowel obstruction. Electronically signed by: Rj Winslow MD (09/07/2018 1:41 AM) [facility] Course & Med Decision Making Course & Med Decision Making Pertinent Labs and Imaging studies reviewed. (See chart for details) Patient presents with lower abdominal pain which is been ongoing for the past week with report of associated nausea and vomiting. Denies known trauma. Denies fever or chills. Labs obtained and posted to chart. IV fluid hydration provided. Hyperglycemia addressed. Symptomatic treatment provided. CT abdomen/ pelvis without acute process. Some findings consistent for constipation. Patient reports she has stool softeners at home. Patient stable for discharge with outpatient follow-up with PCP/GI specialist. Discussed findings and plan with patient, who acknowledge understanding and agreement. Dragon Disclaimer Dragon Disclaimer This electronic medical record was generated, in whole or in part, using a voice recognition dictation system. Departure Departure Impression: Primary Impression: Abdominal pain Additional Impressions: Hyperglycemia Hematuria Constipation Disposition: HOME, SELF-CARE Condition: STABLE Referrals: ROYAL CELIS (PCP) BENI REDD MD Patient Instructions: Abdominal Pain (Nonspecific), Constipation, Adult, Easy- to-Read, Hematuria, Adult, Hyperglycemia, [id number] Additional Instructions: Please keep your appointment with GI Scripts Hyoscyamine Sulfate (LEVSIN-SL) 0.125 Mg Tab.subl 1-2 TAB SL PRN Q4HRS PRN for PAIN, #14 TAB 0 Refills Prov: ANA FULLER DO 09/07/18 Hydrocodone/Apap 5-325 (NORCO 5-325 TABLET) 1 Each Tablet 1 TAB PO PRN Q6HRS PRN for PAIN, #10 TAB 0 Refills Prov: ANA FULLER DO 09/07/18 Ondansetron (ONDANSETRON ODT) 4 Mg Tab.rapdis 1 TAB PO PRN Q6-8HRS PRN for NAUSEA, #14 TAB Prov: ANA FULLER DO 09/07/18 Problem Qualifiers Primary Impression: Abdominal pain Abdominal location: lower abdomen, unspecified Qualified Codes: R10.30 - Lower abdominal pain, unspecified Additional Impressions: Hematuria Hematuria type: unspecified type Qualified Codes: R31.9 - Hematuria, unspecified Constipation Constipation type: unspecified constipation type Qualified Codes: K59.00 - Constipation, unspecified ANA FULLER DO Sep 07, 2018 01:52
[2018-09-07] MEDS ORDERED: fentaNYL PF VIAL 100 MCG/2 ML VIAL IV ONE (02:00)
[2018-09-07 02:30] VITALS: BP 132/81
[2018-09-07] MEDS ORDERED: ONDA4TAB12 PO (02:34)
[2018-09-07] MEDS ORDERED: HYDR-3164 PO (02:34)
[2018-09-07] MEDS ORDERED: HYOS0.1265 SL (02:34)
[2018-09-07 03:39] LABS: % BANDS 4 % (0-9); % LYMPHS 5 % (24-48); % MONOS 1 % (0-10); % SEGS 90 % (35-66)
[2018-09-07 03:40] LABS: PLT ESTIMATE ADEQUATE (ADEQUATE)
[2018-09-07] MEDS ORDERED: DESV50TA PO (10:01)
[2018-09-07] MEDS ORDERED: LINA72CA PO (10:01)
[2018-09-07] MEDS ORDERED: ALPR0.5T6 PO (10:01)
[2018-09-07] MEDS ORDERED: TRAZ-86 PO (10:01)
[2018-09-07] MEDS ORDERED: GABA300C18 PO (10:01)
== END 2018-09-07 02:41 | disposition home or self-care (01) ==
LOC: ER 23:32
DX: E11.65 Type 2 diabetes mellitus with hyperglycemia (principal); R10.30 Lower abdominal pain, unspecified; K59.00 Constipation, unspecified; R11.2 Nausea with vomiting, unspecified; R31.9 Hematuria, unspecified; F41.9 Anxiety disorder, unspecified; F32.9 Major depressive disorder, single episode, unspecified; Z90.49 Acquired absence of other specified parts of digestive tract; Z90.710 Acquired absence of both cervix and uterus; Z90.89 Acquired absence of other organs; Z88.1 Allergy status to other antibiotic agents
CPT/HCPCS: 36415; 74176; 80053; 81001; 82010; 82962; 83690; 83930; 85007; 85025; 96361; 96372; 96374; 96375; 99284; J1815; J1885; J2405; J3010; J3490; J7030

== ENCOUNTER 2018-09-12 14:35 | Emergency (ER) | payer BC ==
[~2018-09-12] VITALS: Ht 162.6 cm; Wt 88.9 kg
[~2018-09-12 14:35] MED LIST changes: +ALPR0.5T6 PO; +DESV50TA PO; -DULO60CA44 PO; +DULO60CA45 PO; +GABA300C18 PO; +HYOS0.1265 SL; +LINA72CA PO; +TRAZ-86 PO
[2018-09-12] MEDS ORDERED: IV NORMAL SALINE 1000ML BAG 1,000 ML IV ONE (15:00)
[2018-09-12] MEDS ORDERED: ONDANSETRON PF 4 MG/2 ML VIAL. IV ONE (15:00)
[2018-09-12 15:09] LABS: BILIRUBIN,URINE NEGATIVE (NEG); CLARITY,URINE CLEAR; COLOR,URINE YELLOW; NITRITE,URINE NEGATIVE (NEG); PH,URINE 5.5; PROTEIN,URINE NEGATIVE (NEG-TRACE); UROBILINOGEN,URINE 0.2 mg/dL (0.2 mg/dL)
[2018-09-12 15:14] LABS: BASO # 0.1 x10^3/uL (0.0-0.2); BASO % 1 % (0-3); EOS # 0.1 x10^3/uL (0.0-0.7); EOS % 1 % (0-3); HEMATOCRIT 39.5 % (36.0-47.0); HEMOGLOBIN 13.5 g/dL (12.0-15.5); LYMPH # 2.4 x10^3/uL (1.0-4.8); LYMPH % 25 % (24-48); MEAN CORPUSCULAR HEMOGLOBIN 31 pg (25-35); MEAN CORPUSCULAR HGB CONC 34 g/dL (31-37); MEAN CORPUSCULAR VOLUME 91 fL (79-100); MONO # 0.6 x10^3/uL (0.0-1.1); MONO % 6 % (0-9); NEUT # 6.3 x10^3uL (1.8-7.7); NEUT % 66 % (31-73); PLATELET COUNT 208 x10^3/uL (140-400); RED BLOOD COUNT 4.32 x10^6/uL (3.50-5.40); WHITE BLOOD COUNT 9.5 x10^3/uL (4.0-11.0)
[2018-09-12 15:17] LABS: BACTERIA,URINE FEW /HPF (0-FEW); RBC,URINE >40 /HPF (0-2); SQUAMOUS EPITHELIAL CELL,UR FEW /LPF
--- NOTE | 2018-09-12 15:20 | EKG ---
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
[2018-09-12 15:32] LABS: ALBUMIN 3.3 g/dL (3.4-5.0); ALBUMIN/GLOBULIN RATIO 0.9 (1.0-1.7); CALCIUM 9.8 mg/dL (8.5-10.1); CREATININE 0.9 mg/dL (0.6-1.0); GFR 70.1; POTASSIUM 3.8 mmol/L (3.5-5.1); TOTAL BILIRUBIN 0.4 mg/dL (0.2-1.0); TOTAL PROTEIN 7.1 g/dL (6.4-8.2)
[2018-09-12] MEDS ORDERED: fentaNYL PF VIAL 100 MCG/2 ML VIAL IV ONE (15:45)
[2018-09-12] MEDS ORDERED: INSULIN REGULAR 100 UNIT/ML 3ML VIAL. IV ONE (16:15)
[2018-09-12] MEDS ORDERED: POTASSIUM CHLORIDE 20 MEQ/15 ML ORAL LIQUID. PO ONE (16:15)
--- NOTE | 2018-09-12 16:27 | RAD ---
PORTABLE CHEST 1V Clinical indications: Shortness of breath COMPARISON: August 31, 2018. Findings: No acute lung infiltrate or pleural effusion or pulmonary edema or lung mass or pneumothorax is seen. The heart size, pulmonary vasculature, mediastinum and both acacia are stable. Impression: No acute radiographic abnormality is seen. Electronically signed by: Newton Denton MD (09/12/2018 4:22 PM) [facility]
--- NOTE | 2018-09-12 16:32 | RAD ---
AP view of the abdomen Clinical indications: History of swallowing a tongue ring. FINDINGS: There is a round metallic foreign body within the right upper quadrant of the abdomen. It measures 6 mm. This could be duodenum or small bowel or hepatic flexure. This appears to be located within the colon on the previous CT study however it has progressed to the hepatic flexure. The other metallic foreign body within the cecum which appeared to represent a metallic pin associated with a tongue ring is not evident today. No obstructive bowel pattern is seen. There is moderate fecal retention within the right side of the colon. Curvilinear calcifications of the right side of the anatomic pelvis are again seen. This may be vascular in nature. The osseous structures are intact. IMPRESSION: One round metallic foreign body is still present within the hepatic flexure. Electronically signed by: Newton Denton MD (09/12/2018 4:28 PM) [facility]
[2018-09-12 17:00] VITALS: BP 111/62
--- NOTE | 2018-09-12 17:05 | PHYS DOC ---
Past Medical History Past Medical History: Anxiety, Depression, Diabetes-Type II, Other Additional Past Medical Histor: NON-ALCHOL RELATED FATTY LIVER, HYDRONAITIS Past Surgical History: Cholecystectomy, Hysterectomy, Tonsillectomy Additional Past Surgical Histo: bilateral ankles, multiple abscess removal surgerieS, breast reduction Alcohol Use: None Drug Use: None Adult General Chief Complaint Chief Complaint: HYPERGLYCEMIA HPI HPI Patient is a 38 year old female who is presenting the emergency room with a chief complaint of high blood sugar. She said she thought that her heart was racing she thought she was breathing a little fast she got worried about that she had 2 hotdogs for lunch and she had shredded wheat for breakfast she is trying to take her insulin as regularly as she can. She has some mild abdominal discomfort she has had before she is being followed for retained tongue ring she accidentally swallowed it aw hile back and was already evaluated by gi with conservative plan per the notes. No chest pain no fever no dysuria no other symptoms mild nausea no vomiting. Review of Systems Review of Systems Constitutional: Denies fever or chills [] Respiratory: Cardiovascular: No additional information not addressed in HPI [] GI: Denies , bloody stools or diarrhea [] : Denies dysuria or hematuria [] Musculoskeletal: Denies back pain or joint pain [] All other systems were reviewed and found to be within normal limits, except as documented in this note. Current Medications Current Medications Current Medications Medications (Trade) Dose Ordered Sig/Taqueria Start Time Stop Time Status Last Admin Dose Admin Fentanyl Citrate (Fentanyl 2ml Vial) 50 mcg 1X ONCE 09/12/18 15:45 09/12/18 15:46 DC 09/12/18 15:48 50 MCG Insulin Human Regular (HumuLIN R VIAL) 10 unit 1X ONCE 09/12/18 16:15 09/12/18 16:16 DC 09/12/18 16:15 10 UNIT Ondansetron HCl (Zofran) 4 mg 1X ONCE 09/12/18 15:00 09/12/18 15:01 DC 09/12/18 15:29 4 MG Potassium Chloride (KCl Oral Soln) 20 meq 1X ONCE 09/12/18 16:15 09/12/18 16:16 DC 09/12/18 16:16 20 MEQ Sodium Chloride 1,000 ml @ 1,000 mls/hr 1X ONCE 09/12/18 15:00 09/12/18 15:59 DC 09/12/18 15:30 1,000 MLS/HR Allergies Allergies Allergies Coded Allergies Type Severity Reaction Last Updated Verified levofloxacin Allergy Intermediate 09/06/18 Yes Physical Exam Physical Exam Constitutional: Well developed, well nourished, no acute distress, non-toxic appearance. [] HENT: Normocephalic, atraumatic, bilateral external ears normal, oropharynx dry , no oral exudates, nose normal. [] Eyes: PERRLA, EOMI, conjunctiva normal, no discharge. [] Neck: Normal range of motion, no tenderness, supple, no stridor. [] Cardiovascular:Heart rate regular rhythm, no murmur [] Lungs & Thorax: Bilateral breath sounds clear to auscultation [] Abdomen: Bowel sounds normal, soft, mild tenderness, no masses, no pulsatile masses. [] redubiel hernia. no peritoneal signs Skin: Warm, dry, no erythema, no rash. [] Back: No tenderness, no CVA tenderness. [] Extremities: No tenderness, no cyanosis, no clubbing, ROM intact, no edema. [] Neurologic: Alert and oriented X 3, normal motor function, normal sensory function, no focal deficits noted. [] Psychologic: Affect normal, judgement normal, mood normal. [] Current Patient Data Vital Signs Vital Signs Date Time Temp Pulse Resp B/P (MAP) Pulse Ox O2 Delivery O2 Flow Rate FiO2 09/12/18 15:48 16 93 Room Air 09/12/18 15:03 97.8 98 130/66 (87) 97.8 Lab Values Laboratory Tests Test 09/12/18 14:45 09/12/18 15:05 09/12/18 16:30 Urine Collection Type Unknown Urine Color Yellow Urine Clarity Clear Urine pH 5.5 Urine Specific [place] >=1.030 Urine Protein Negative mg/dL (NEG-TRACE) Urine Glucose (UA) >=1000 mg/dL (NEG) Urine Ketones (Stick) Negative mg/dL (NEG) Urine Blood Large (NEG) Urine Nitrite Negative (NEG) Urine Bilirubin Negative (NEG) Urine Urobilinogen Dipstick 0.2 mg/dL (0.2 mg/dL) Urine Leukocyte Esterase Negative (NEG) Urine RBC >40 /HPF (0-2) Urine WBC 1-4 /HPF (0-4) Urine Squamous Epithelial Cells Few /LPF Urine Bacteria Few /HPF (0-FEW) White Blood Count 9.5 x10^3/uL (4.0-11.0) Red Blood Count 4.32 x10^6/uL (3.50-5.40) Hemoglobin 13.5 g/dL (12.0-15.5) Hematocrit 39.5 % (36.0-47.0) Mean Corpuscular Volume 91 fL (79-100) Mean Corpuscular Hemoglobin 31 pg (25-35) Mean Corpuscular Hemoglobin Concent 34 g/dL (31-37) Red Cell Distribution Width 15.0 % (11.5-14.5) H Platelet Count 208 x10^3/uL (140-400) Neutrophils (%) (Auto) 66 % (31-73) Lymphocytes (%) (Auto) 25 % (24-48) Monocytes (%) (Auto) 6 % (0-9) Eosinophils (%) (Auto) 1 % (0-3) Basophils (%) (Auto) 1 % (0-3) Neutrophils # (Auto) 6.3 x10^3uL (1.8-7.7) Lymphocytes # (Auto) 2.4 x10^3/uL (1.0-4.8) Monocytes # (Auto) 0.6 x10^3/uL (0.0-1.1) Eosinophils # (Auto) 0.1 x10^3/uL (0.0-0.7) Basophils # (Auto) 0.1 x10^3/uL (0.0-0.2) Sodium Level 132 mmol/L (136-145) L Potassium Level 3.8 mmol/L (3.5-5.1) Chloride Level 98 mmol/L (98-107) Carbon Dioxide Level 28 mmol/L (21-32) Anion Gap 6 (6-14) Blood Urea Nitrogen 9 mg/dL (7-20) Creatinine 0.9 mg/dL (0.6-1.0) Estimated GFR (Cockcroft-Gault) 70.1 BUN/Creatinine Ratio 10 (6-20) Glucose Level 515 mg/dL (70-99) *H Calcium Level 9.8 mg/dL (8.5-10.1) Total Bilirubin 0.4 mg/dL (0.2-1.0) Aspartate Amino Transferase (AST) 37 U/L (15-37) Alanine Aminotransferase (ALT) 103 U/L (14-59) H Alkaline Phosphatase 99 U/L (46-116) Troponin I Quantitative < 0.017 ng/mL (0.000-0.055) Total Protein 7.1 g/dL (6.4-8.2) Albumin 3.3 g/dL (3.4-5.0) L Albumin/Globulin Ratio 0.9 (1.0-1.7) L Lipase 99 U/L (73-393) Glucose (Fingerstick) 422 mg/dL (70-99) H Laboratory Tests 09/12/18 15:05 Laboratory Tests 09/12/18 15:05 EKG EKG EKG shows sinus tachycardia rate of 102 no acute ischemic changes noted interpreted by me the time of encounter.[] Radiology/Procedures Radiology/Procedures [] Impressions: FINDINGS: There is a round metallic foreign body within the right upper quadrant of the abdomen. It measures 6 mm. This could be duodenum or small bowel or hepatic flexure. This appears to be located within the colon on the previous CT study however it has progressed to the hepatic flexure. The other metallic foreign body within the cecum which appeared to represent a metallic pin associated with a tongue ring is not evident today. No obstructive bowel pattern is seen. There is moderate fecal retention within the right side of the colon. Curvilinear calcifications of the right side of the anatomic pelvis are again seen. This may be vascular in nature. The osseous structures are intact. IMPRESSION: One round metallic foreign body is still present within the hepatic flexure. Electronically signed by: Tnoo Denton MD (09/12/2018 4:28 PM) [facility] DICTATED and SIGNED BY: TONO DENTON MD DATE: 09/12/181621 OMPARISON: August 31, 2018. Findings: No acute lung infiltrate or pleural effusion or pulmonary edema or lung mass or pneumothorax is seen. The heart size, pulmonary vasculature, mediastinum and both acacia are stable. Impression: No acute radiographic abnormality is seen. Electronically signed by: Tono Denton MD (09/12/2018 4:22 PM) [facility] DICTATED and SIGNED BY: TONO DENTON MD DATE: 09/12/181621 Course & Med Decision Making Course & Med Decision Making Pertinent Labs and Imaging studies reviewed. (See chart for details) 38-year-old female history of type 2 diabetes on insulin was presenting with hyperglycemia we workup extensively no anion gap we gave her insulin we gave her fluids the blood sugar did come down she was feeling better. Noted the history of retained foreign body in her ascending colon the sharp portion is actually gone now she has passed it obviously according to the KUB. The round portion is a sending into her near her transverse colon now this is better no peritoneal signs patient was reassured counseled on return precautions for that no signs of infection the emergency room she was discharged in stable condition. Encouraged to maintain compliant with her insulin Dragon Disclaimer Dragon Disclaimer This electronic medical record was generated, in whole or in part, using a voice recognition dictation system. Departure Departure Impression: Primary Impression: Poorly controlled type 2 diabetes mellitus Disposition: HOME, SELF-CARE Condition: STABLE Referrals: JANET FULLER (PCP) Patient Instructions: Hyperglycemia, [id number] RENAY SKY MD Sep 12, 2018 17:05
[2018-09-24] MEDS ORDERED: INSU100I30 SQ (10:46)
[2018-09-24] MEDS ORDERED: BLAC540C4 PO (10:46)
[2018-09-24] MEDS ORDERED: LUBI8CAP4 PO (10:46)
[2018-09-24] MEDS ORDERED: INSU100C SQ (10:46)
[2019-02-25] MEDS ORDERED: DEXT20TA2 PO (01:34)
[2019-02-25] MEDS ORDERED: ACAR25TA PO (01:34)
[2019-02-25] MEDS ORDERED: DESV50TA PO (01:34)
== END 2018-09-12 17:20 | disposition home or self-care (01) ==
LOC: ER 14:35
DX: E11.65 Type 2 diabetes mellitus with hyperglycemia (principal); F41.9 Anxiety disorder, unspecified; F32.9 Major depressive disorder, single episode, unspecified; Z90.49 Acquired absence of other specified parts of digestive tract; Z90.710 Acquired absence of both cervix and uterus; Z90.89 Acquired absence of other organs; Z88.1 Allergy status to other antibiotic agents
CPT/HCPCS: 36415; 71045; 74018; 80053; 81001; 82962; 83690; 84484; 85025; 93005; 96361; 96374; 96375; 99284; J1815; J2405; J3010; J7030

== ENCOUNTER 2018-09-12 23:33 | Emergency (ER) | payer BC ==
[~2018-09-12] VITALS: Ht 170.2 cm; Wt 81.6 kg
[2018-09-12 23:58] VITALS: BP 120/67
--- NOTE | 2018-09-13 00:38 | PHYS DOC ---
Past Medical History Past Medical History: Diabetes-Type I Additional Past Medical Histor: NON-ALCHOL RELATED FATTY LIVER, HYDRONAITIS Past Surgical History: Cholecystectomy, Hysterectomy, Tonsillectomy Additional Past Surgical Histo: bilateral ankles, multiple abscess removal surgerieS, breast reduction Alcohol Use: Occasionally Drug Use: None Adult General Chief Complaint Chief Complaint: HYPOGLYCEMIA HPI HPI Patient is a 38 year old female who presents with both glycemia. The patient was seen in the emergency department earlier today and treated for hyperglycemia. She received saline and insulin. She states that she was upstairs in the hospital, staying with a friend of hers who was admitted to the hospital. She was planning on spending the night with her friend and someone had brought Gaudencio Wilson for dinner. She states that she had eaten just a hamburger edin because she had been dealing with hyperglycemia today. She states that she then felt like she was getting low blood sugar. She states that she ate a few of the polish fries. She states that after that she checked her blood sugar and found that it was 45. She is asymptomatic. Review of Systems Review of Systems Constitutional: Denies fever or chills [] Eyes: Denies change in visual acuity, redness, or eye pain [] HENT: Denies nasal congestion or sore throat [] Respiratory: Denies cough or shortness of breath [] Cardiovascular: No additional information not addressed in HPI [] GI: Denies abdominal pain, nausea, vomiting, bloody stools or diarrhea [] : Denies dysuria or hematuria [] Musculoskeletal: Denies back pain or joint pain [] Integument: Denies rash or skin lesions [] Neurologic: Denies headache, focal weakness or sensory changes [] Endocrine: Denies polyuria or polydipsia [] All other systems were reviewed and found to be within normal limits, except as documented in this note. Allergies Allergies Allergies Coded Allergies Type Severity Reaction Last Updated Verified levofloxacin Allergy Intermediate 09/06/18 Yes Physical Exam Physical Exam Constitutional: Well developed, well nourished, no acute distress, non-toxic appearance. [] HENT: Normocephalic, atraumatic, bilateral external ears normal, oropharynx moist, no oral exudates, nose normal. [] Eyes: PERRLA, EOMI, conjunctiva normal, no discharge. [] Neck: Normal range of motion, no tenderness, supple, no stridor. [] Cardiovascular:Heart rate regular rhythm, no murmur [] Lungs & Thorax: Bilateral breath sounds clear to auscultation [] Abdomen: Bowel sounds normal, soft, no tenderness, no masses, no pulsatile masses. [] Skin: Warm, dry, no erythema, no rash. [] Back: No tenderness, no CVA tenderness. [] Extremities: No tenderness, no cyanosis, no clubbing, ROM intact, no edema. [] Neurologic: Alert and oriented X 3, normal motor function, normal sensory function, no focal deficits noted. [] Psychologic: Affect normal, judgement normal, mood normal. [] Current Patient Data Vital Signs Vital Signs Date Time Temp Pulse Resp B/P (MAP) Pulse Ox O2 Delivery O2 Flow Rate FiO2 09/12/18 23:58 98.0 108 20 120/67 (84) 99 Room Air 98.0 Lab Values Laboratory Tests Test 09/12/18 23:49 09/13/18 00:34 Glucose (Fingerstick) 54 mg/dL (70-99) L 75 mg/dL (70-99) EKG EKG [] Radiology/Procedures Radiology/Procedures [] Course & Med Decision Making Course & Med Decision Making Pertinent Labs and Imaging studies reviewed. (See chart for details) []The patient was given a turkey sandwich boxed meal in the emergency department. On recheck her blood glucose was 75. She is being discharged home. She is in agreement with this plan. Dragon Disclaimer Dragon Disclaimer This electronic medical record was generated, in whole or in part, using a voice recognition dictation system. Departure Departure Impression: Primary Impression: Hypoglycemia Disposition: 01 HOME, SELF-CARE Condition: STABLE Referrals: JANET FULLER (PCP) Patient Instructions: Hypoglycemia (Low Blood Sugar) Additional Instructions: Watch your blood sugars closely. Use your insulin as directed. Follow-up with your primary care provider for further management of your diabetes. RENETTA MIJARES APRN Sep 13, 2018 00:38
[2018-09-24] MEDS ORDERED: INSU100C SQ (10:46)
[2018-09-24] MEDS ORDERED: INSU100I30 SQ (10:46)
[2018-09-24] MEDS ORDERED: LUBI8CAP4 PO (10:46)
[2018-09-24] MEDS ORDERED: BLAC540C4 PO (10:46)
[2019-02-25] MEDS ORDERED: ACAR25TA PO (01:34)
[2019-02-25] MEDS ORDERED: DEXT20TA2 PO (01:34)
[2019-02-25] MEDS ORDERED: DESV50TA PO (01:34)
== END 2018-09-13 00:43 | disposition home or self-care (01) ==
LOC: ER 23:33
DX: E10.649 Type 1 diabetes mellitus with hypoglycemia without coma (principal); Z90.49 Acquired absence of other specified parts of digestive tract; Z90.710 Acquired absence of both cervix and uterus; Z90.89 Acquired absence of other organs; Z88.1 Allergy status to other antibiotic agents
CPT/HCPCS: 82962; 99283

== ENCOUNTER 2018-09-27 05:55 | Day surgery (SDC) | payer BC ==
[~2018-09-27] VITALS: Ht 162.6 cm; Wt 90.3 kg
[~2018-09-27 05:55] MED LIST changes: +BLAC540C4 PO; +DULO60CA44 PO; -DULO60CA45 PO; +INSU100C SQ; +INSU100I30 SQ; +LUBI8CAP4 PO
[2018-09-27] MEDS ORDERED: INSULIN LISPRO 100 UNIT/ML 3ML VIAL. SQ ONE (06:45)
[2018-09-27] MEDS ORDERED: ONDANSETRON PF 4 MG/2 ML VIAL. IV PRN (07:00)
[2018-09-27] MEDS ORDERED: LIDOCAINE 1% PF 2 ML VIAL. ID PRN (07:00)
[2018-09-27] MEDS ORDERED: PROCHLORPERAZINE 10 MG/2 ML VIAL. IV PRN (07:00)
[2018-09-27] MEDS ORDERED: fentaNYL PF VIAL 100 MCG/2 ML VIAL IV PRN ×2 (07:00)
[2018-09-27] MEDS ORDERED: MORPHINE SULFATE 4 MG/ML VIAL. IV PRN (07:00)
[2018-09-27] MEDS ORDERED: HYDROmorphone 2 MG/ML VIAL IV PRN (07:00)
[2018-09-27] MEDS ORDERED: IV RINGERS,LACTATED 1000ML 1,000 ML IV SCH (07:00)
[2018-09-27] MEDS ORDERED: LIDOCAINE 2% PF Vial for OR 5 ML VIAL. ONE (07:05)
[2018-09-27] MEDS ORDERED: fentaNYL PF VIAL 100 MCG/2 ML VIAL ONE ×3 (07:05→09:29)
[2018-09-27] MEDS ORDERED: PROPOFOL 20 ML IV ONE (07:05)
[2018-09-27] MEDS ORDERED: ROCURONIUM 50 MG/5 ML VIAL. ONE (07:05)
[2018-09-27] MEDS ORDERED: DEXAMETHASONE SOD PHOS 20 MG/5 ML VIAL. ONE (07:05)
[2018-09-27] MEDS ORDERED: FAMOTIDINE 20 MG/2 ML VIAL ONE (07:05)
[2018-09-27] MEDS ORDERED: MIDAZOLAM HCL/PF 2 MG/2 ML VIAL. ONE (07:05)
[2018-09-27] MEDS ORDERED: ONDANSETRON PF 4 MG/2 ML VIAL. ONE (07:05)
[2018-09-27] MEDS ORDERED: KETOROLAC 30 MG/ML INJ FOR OR. INJ ONE (07:05)
[2018-09-27] MEDS ORDERED: diphenhydrAMINE 50 MG/ML VIAL ONE ×2 (07:06→08:11)
[2018-09-27] MEDS ORDERED: GLYCOPYRROLATE 1 MG/5 ML VIAL. ONE (08:16)
[2018-09-27] MEDS ORDERED: NEOSTIGMINE 10 MG/10 ML VIAL. ONE (08:16)
[2018-09-27] MEDS ORDERED: SEVOFLURANE 31 TO 60 MINUTES. IH ONE (08:43)
[2018-09-27] MEDS ORDERED: OXYC1TAB15 PO (08:58)
[2018-09-27] MEDS ORDERED: oxyCODONE/APAP 5/325 1 TAB TABLET PO ONE (09:00)
[2018-09-27] MEDS ORDERED: oxyCODONE/APAP 5/325 1 TAB TABLET PO PRN (09:00)
--- NOTE | 2018-09-27 09:08 | PDOC4 ---
Operative Note Operative Note Operative Note: Preoperative Diagnosis: Ventral hernia Postoperative Diagnosis: Same Procedure: Ventral hernia with mesh Surgeon: Sami Director Money: Allison MCNEAL Anesthesia: GET EBL: 10 ml Specimen: Hernia sac to pathology Drains: None Complications: None Indication: The patient is a 38-year-old female who is referred with a ventral hernia. She was offered surgical repair and the details of surgery were discussed. The risks were also discussed which include bleeding, infection, recurrence, pain, potential need for additional surgery or procedure. She understands and would like to proceed. Description: The patient was taken the operating room and placed supine on the operating table. Gen. anesthesia was performed. The abdomen was prepped with ChloraPrep and draped with sterile towels, sheets, and an Ioban. A vertical incision was made just above the umbilicus extending around to the inferior border. Cautery dissection was utilized and subcutaneous cutaneous tissues. The umbilicus was elevated off the fascia for better visualization. The patient appeared to have 2 small hernia defects that were adjacent to each other. The small fascial bridge was divided to create a single hernia. Some of the redundant sac was excised and sent to pathology. A preperitoneal plane was developed circumferentially. A medium sized Ventralex ST mesh was then placed in this newly formed plane. The mesh provided good coverage of the hernia defect in all directions. The mesh was sutured into position using 0 Prolene at the 12, 3, 6, 9:00 positions. The attenuated fascia was then closed over the mesh with 0 Prolene. The umbilicus was sutured back to the fascia with 0 Vicryl. The subcutaneous tissue was approximated with 3-0 Vicryl. The skin was closed with 4-0 Monocryl. Steri-Strips and a sterile dressing were applied. The patient tolerated the procedure well and was sent to the recovery room in stable condition. At the end of the case all counts were correct. TIKI HOWELL MD Sep 27, 2018 09:08
--- NOTE | 2018-09-27 09:10 | DISCH ---
DISCHARGE INSTRUCTIONS Condition on Discharge Condition on Discharge: Stable Activity After Discharge Activity Instructions for Disc: Other, see below (no lifting over 20 lbs, strenous activity) Diet after Discharge Diet after Discharge: Regular Wound Incision Care Wound/Incision Care: Other, see below (keep dressing clean and dry X 72 hours, may then remove and shower) Follow-Up Follow up with: Dr Howell in 2 weeks in office, call for appt [phone] TIKI HOWELL MD Sep 27, 2018 09:10
[2018-09-27 11:17] VITALS: BP 115/68
--- NOTE | 2018-09-28 17:10 | PATHOLOGY ---
[facility] Accession Number: [id number] . 01 Material submitted: . HERNIA SAC . 01 Clinical history: . Hernia . 02 Diagnosis: Segment of focal mesothelial-lined fibromembranous and fibroadipose tissue, herniorrhaphy: - Hernia sac. (JPM/db; 09/28/2018) LBQ/09/28/2018 . 02 Electronically signed: . Adria Pleitez MD, Pathologist NPI- [id number] . 01 Gross description: . The specimen is received in formalin, labeled "Elena, Renita, hernia sac", is a disrupted, fibromembranous sac measuring 8.0 x 5.0 x 1.4 cm. No discrete nodules or masses are identified. Bundle Breaker tissue is submitted in A1. ([facility]; 09/27/2018) SHS/SHS . 02 Pathologist provided ICD-10: K43.9 . 02 CPT . 251234 Specimen Comment: A courtesy copy of this report has been sent to Specimen Comment: [phone], . Specimen Comment: Report sent to / DR FULLER Specimen Comment: A duplicate report has been generated due to demographic updates. Performed at: 01 [facility] [address], [place] [id number] MD Jem Albrecht MD Phone: [phone] Performed at: 02 [facility] [address] [place], [place] [id number] MD Adria Pleitez MD Phone: [phone]
== END 2018-09-27 11:17 | disposition home or self-care (01) ==
LOC: SURG 05:55
PROVIDERS: ATTEND Surgery
DX: K43.9 Ventral hernia without obstruction or gangrene (principal); Z86.718 Personal history of other venous thrombosis and embolism; E11.9 Type 2 diabetes mellitus without complications; Z85.41 Personal history of malignant neoplasm of cervix uteri; Z90.710 Acquired absence of both cervix and uterus; Z98.890 Other specified postprocedural states; Z90.49 Acquired absence of other specified parts of digestive tract; Z90.721 Acquired absence of ovaries, unilateral; Z79.899 Other long term (current) drug therapy; Z82.49 Family history of ischemic heart disease and other diseases of the circulatory system; F17.210 Nicotine dependence, cigarettes, uncomplicated; E66.9 Obesity, unspecified; Z68.34 Body mass index [BMI] 34.0-34.9, adult; Z88.1 Allergy status to other antibiotic agents; K75.81 Nonalcoholic steatohepatitis (NASH); Z79.84 Long term (current) use of oral hypoglycemic drugs
CPT/HCPCS: 49560; 49568; 82962; 88302; A7015; C1781; J0696; J1100; J1200; J1885; J2001; J2250; J2405; J2704; J2710; J3010; J3490; J7120

== ENCOUNTER 2018-12-29 11:02 | Inpatient (IN) | payer BC ==
[~2018-12-29] VITALS: Ht 162.6 cm; Wt 86.6 kg
[~2018-12-29 11:02] MED LIST changes: +OXYC1TAB15 PO
[2018-12-29] MEDS ORDERED: ONDANSETRON PF 4 MG/2 ML VIAL. IV ONE (13:30)
[2018-12-29] MEDS ORDERED: IV DEXTROSE 5% - 0.9 % NACL 1,000 ML IV ONE (13:30)
[2018-12-29 13:41] LABS: BILIRUBIN,URINE NEGATIVE (NEG); CLARITY,URINE CLEAR; COLOR,URINE YELLOW; NITRITE,URINE NEGATIVE (NEG); PH,URINE 5.5; PROTEIN,URINE NEGATIVE (NEG-TRACE); UROBILINOGEN,URINE 0.2 mg/dL (0.2 mg/dL)
--- NOTE | 2018-12-29 13:41 | PHYS DOC ---
Past Medical History Past Medical History: Diabetes-Type I, Other Additional Past Medical Histor: NON-ALCHOL RELATED FATTY LIVER, HYDRONAITIS Past Surgical History: Cholecystectomy, Hysterectomy, Tonsillectomy Additional Past Surgical Histo: bilateral ankles, multiple abscess removal, breast reduction, hernia Alcohol Use: Occasionally Drug Use: None Adult General Chief Complaint Chief Complaint: HYPOGLYCEMIA HPI HPI Patient is a 38-year-old female presents to the emergency department for evaluation. Her main complaint is right lower quadrant abdominal pain, which developed over the past 12-24 hours. She has had nausea but no vomiting, no urinary symptoms, or no diarrhea. She has not had any fevers or chills. She has had a prior cholecystectomy, hernia surgery, as well as hysterectomy, but she still has an appendix. She also states that she is having trouble keeping her blood sugar elevated. Her initial blood sugar upon arrival in the emergency department is in the 30s, she was given juice with improvement in her sugar to the 80s, but subsequently she felt that her blood sugar was low again and it was again in the 30s. She'll be given dextrose IV as well as a dextrose infusion. She does take Ozempic, a once weekly injection for diabetes. There are no alleviating or exacerbating factors to the patient's symptoms. Review of Systems Review of Systems Constitutional: Denies fever or chills [] Eyes: Denies change in visual acuity, redness, or eye pain [] HENT: Denies nasal congestion or sore throat [] Respiratory: Denies cough or shortness of breath [] Cardiovascular: The patient denies any shortness of breath, chest pain, palpitations, or orthopnea[] GI: No additional information not addressed in HPI [] : Denies dysuria or hematuria [] Musculoskeletal: Denies back pain or joint pain [] Integument: Denies rash or skin lesions [] Neurologic: Denies headache, focal weakness or sensory changes [] Endocrine: Denies polyuria or polydipsia [] All other systems were reviewed and found to be within normal limits, except as documented in this note. Current Medications Current Medications Current Medications Medications (Trade) Dose Ordered Sig/Taqueria Start Time Stop Time Status Last Admin Dose Admin Dextrose (Dextrose 50%-Water Syringe) 25 gm 1X ONCE 12/29/18 13:45 12/29/18 13:46 DC 12/29/18 13:43 25 GM Dextrose/Sodium Chloride 1,000 ml @ 125 mls/hr 1X ONCE 12/29/18 13:30 12/29/18 21:29 12/29/18 13:48 125 MLS/HR Info (CONTRAST GIVEN -- Rx MONITORING) 1 each PRN DAILY PRN 12/29/18 13:45 12/31/18 13:44 Iohexol (Omnipaque 300 Mg/ml) 75 ml 1X ONCE 12/29/18 13:45 12/29/18 13:46 DC 12/29/18 14:14 75 ML Morphine Sulfate (Morphine Sulfate) 4 mg PRN Q15MIN PRN 12/29/18 13:30 12/30/18 13:29 12/29/18 13:43 4 MG Ondansetron HCl (Zofran) 4 mg 1X ONCE 12/29/18 13:30 12/29/18 13:34 DC 12/29/18 13:44 4 MG Allergies Allergies Allergies Coded Allergies Type Severity Reaction Last Updated Verified levofloxacin Allergy Intermediate Rash 09/27/18 Yes vancomycin Allergy Intermediate Rash 09/27/18 Yes Physical Exam Physical Exam PHYSICAL EXAM: CONSTITUTIONAL: Well developed, well nourished HEAD: normocephalic, atraumatic EENT: PERRL, EOMI. Conjunctivae normal color, sclerae non-icteric; moist mucous membranes. NECK: Supple, non-tender; no meningismus. LUNGS: Lungs CTA, breathing even and unlabored. Normal air movement. HEART: Regular rate and rhythm, no murmur CHEST: No deformity; non-tender ABDOMEN: The abdomen is soft, there is right lower quadrant tenderness to palpation, without but there is mild rebound tenderness present, the remainder the abdomen is soft and non-tender, no masses or bruits. Normal bowel sounds are present. EXTREM: Normal ROM; no deformity, no calf tenderness. Normal pulses palpable in all extremities. There is no pedal edema. SKIN: No rash; no diaphoresis NEURO: Alert; normal speech and cognition; CN's grossly intact; strength grossly intact without focal deficit. BACK: No CVA TTP. Current Patient Data Vital Signs Vital Signs Date Time Temp Pulse Resp B/P (MAP) Pulse Ox O2 Delivery O2 Flow Rate FiO2 12/29/18 14:00 83 16 107/57 (74) 97 Room Air 12/29/18 12:20 98.9 98.9 Lab Values Laboratory Tests Test 12/29/18 12:25 12/29/18 12:28 12/29/18 12:40 12/29/18 13:04 Urine Color Yellow Urine Clarity Clear Urine pH 5.5 Urine Specific [place] <=1.005 Urine Protein Negative mg/dL (NEG-TRACE) Urine Glucose (UA) Negative mg/dL (NEG) Urine Ketones (Stick) Negative mg/dL (NEG) Urine Blood Large (NEG) Urine Nitrite Negative (NEG) Urine Bilirubin Negative (NEG) Urine Urobilinogen Dipstick 0.2 mg/dL (0.2 mg/dL) Urine Leukocyte Esterase Trace (NEG) Urine RBC 3-5 /HPF (0-2) Urine WBC 1-4 /HPF (0-4) Urine Squamous Epithelial Cells Occ /LPF Urine Bacteria Few /HPF (0-FEW) Glucose (Fingerstick) 39 mg/dL (70-99) *L 76 mg/dL (70-99) White Blood Count 13.2 x10^3/uL (4.0-11.0) H Red Blood Count 5.19 x10^6/uL (3.50-5.40) Hemoglobin 14.9 g/dL (12.0-15.5) Hematocrit 44.5 % (36.0-47.0) Mean Corpuscular Volume 86 fL (79-100) Mean Corpuscular Hemoglobin 29 pg (25-35) Mean Corpuscular Hemoglobin Concent 34 g/dL (31-37) Red Cell Distribution Width 15.2 % (11.5-14.5) H Platelet Count 302 x10^3/uL (140-400) Neutrophils (%) (Auto) 66 % (31-73) Lymphocytes (%) (Auto) 26 % (24-48) Monocytes (%) (Auto) 8 % (0-9) Eosinophils (%) (Auto) 1 % (0-3) Basophils (%) (Auto) 0 % (0-3) Neutrophils # (Auto) 8.7 x10^3uL (1.8-7.7) H Lymphocytes # (Auto) 3.4 x10^3/uL (1.0-4.8) Monocytes # (Auto) 1.0 x10^3/uL (0.0-1.1) Eosinophils # (Auto) 0.1 x10^3/uL (0.0-0.7) Basophils # (Auto) 0.0 x10^3/uL (0.0-0.2) Sodium Level 140 mmol/L (136-145) Potassium Level 3.1 mmol/L (3.5-5.1) L Chloride Level 104 mmol/L (98-107) Carbon Dioxide Level 29 mmol/L (21-32) Anion Gap 7 (6-14) Blood Urea Nitrogen 7 mg/dL (7-20) Creatinine 0.6 mg/dL (0.6-1.0) Estimated GFR (Cockcroft-Gault) 111.9 BUN/Creatinine Ratio 12 (6-20) Glucose Level 43 mg/dL (70-99) L Calcium Level 10.2 mg/dL (8.5-10.1) H Total Bilirubin 0.4 mg/dL (0.2-1.0) Aspartate Amino Transferase (AST) 44 U/L (15-37) H Alanine Aminotransferase (ALT) 88 U/L (14-59) H Alkaline Phosphatase 93 U/L (46-116) Total Protein 7.6 g/dL (6.4-8.2) Albumin 3.9 g/dL (3.4-5.0) Albumin/Globulin Ratio 1.1 (1.0-1.7) Lipase 63 U/L (73-393) L Test 12/29/18 13:35 12/29/18 14:33 Glucose (Fingerstick) 34 mg/dL (70-99) *L 74 mg/dL (70-99) Laboratory Tests 12/29/18 12:40 Laboratory Tests 12/29/18 12:40 EKG EKG [] Radiology/Procedures Radiology/Procedures [PROCEDURE: CT ABD PELV W/ IV CONTRST ONLY CT ABD PELV W/ IV CONTRST ONLY Indication: Right lower quadrant pain Technique: Postcontrast CT imaging was performed of the abdomen pelvis, multiplanar reconstruction images submitted. No oral contrast was given as per request. One or more of the following individualized dose reduction techniques were utilized for this examination: 1. Automated exposure control 2. Adjustment of the mA and/or kV according to patient size 3. Use of iterative reconstruction technique. Comparison: September 07, 2018 Findings: There is some motion degradation. There is no significant abnormality of the limited visualized lung bases. There is again 2.5 cm of fat density associated with the left adrenal gland. There again has been cholecystectomy. No new focal abnormality is identified of the pancreas, liver, spleen. Both kidneys enhance, no significant hydronephrosis or perinephric fluid collection. Evaluation of bowel somewhat limited without oral contrast. Normal appendix is visualized. Bowel is not significantly dilated. There is no free fluid or free air. There is retained stool greater of the rectosigmoid colon and right colon. There are again several scattered small retroperitoneal and mesenteric nodes. IMPRESSION: 1. No significant acute abnormality is identified, no CT evidence of acute appendicitis. There is some retained stool greater in the region of rectosigmoid colon. 2. 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 ] Course & Med Decision Making Course & Med Decision Making Pertinent Labs and Imaging studies reviewed. (See chart for details) [3:10 PM:The patient's condition remains stable. I spoke with the hospitalist, who accepted the patient to the hospital for further evaluation and treatment. The patient will be admitted due to persistent hypoglycemia, of uncertain etiology.] Dragon Disclaimer Dragon Disclaimer This electronic medical record was generated, in whole or in part, using a voice recognition dictation system. Departure Departure Impression: Primary Impression: Hypoglycemia Additional Impression: Abdominal pain Disposition: ADMITTED INPATIENT Admitting Physician: Other (Riffel) Condition: STABLE Referrals: JANET FULLER-Frederic (PCP) Problem Qualifiers EBENEZER MANCIA MD December 29, 2018 13:41
[2018-12-29 13:42] LABS: BASO % 0 % (0-3); EOS # 0.1 x10^3/uL (0.0-0.7); EOS % 1 % (0-3); HEMATOCRIT 44.5 % (36.0-47.0); HEMOGLOBIN 14.9 g/dL (12.0-15.5); LYMPH # 3.4 x10^3/uL (1.0-4.8); LYMPH % 26 % (24-48); MEAN CORPUSCULAR HEMOGLOBIN 29 pg (25-35); MEAN CORPUSCULAR HGB CONC 34 g/dL (31-37); MEAN CORPUSCULAR VOLUME 86 fL (79-100); MONO % 8 % (0-9); NEUT # 8.7 x10^3uL (1.8-7.7); NEUT % 66 % (31-73); PLATELET COUNT 302 x10^3/uL (140-400); RED BLOOD COUNT 5.19 x10^6/uL (3.50-5.40); RED CELL DISTRIBUTION WIDTH 15.2 % (11.5-14.5); WHITE BLOOD COUNT 13.2 x10^3/uL (4.0-11.0)
[2018-12-29] MEDS: MORPHINE SULFATE 4 MG/ML VIAL. IV/SQ PRN ×2 (13:43→15:35)
[2018-12-29] MEDS ORDERED: DEXTROSE 50% 25 GM / 50ML DISP.SYRIN. IV ONE ×2 (13:45→15:45)
[2018-12-29] MEDS ORDERED: CONTRAST GIVEN. MC PRN (13:45)
[2018-12-29] MEDS ORDERED: IOHEXOL 300 MG/ML 100ML VIAL. IV ONE (13:45)
[2018-12-29 13:55] LABS: ALBUMIN 3.9 g/dL (3.4-5.0); ALBUMIN/GLOBULIN RATIO 1.1 (1.0-1.7); CALCIUM 10.2 mg/dL (8.5-10.1); CREATININE 0.6 mg/dL (0.6-1.0); GFR 111.9; POTASSIUM 3.1 mmol/L (3.5-5.1); TOTAL BILIRUBIN 0.4 mg/dL (0.2-1.0); TOTAL PROTEIN 7.6 g/dL (6.4-8.2)
[2018-12-29 14:16] LABS: BACTERIA,URINE FEW /HPF (0-FEW); SQUAMOUS EPITHELIAL CELL,UR OCC /LPF
--- NOTE | 2018-12-29 14:36 | RAD ---
CT ABD PELV W/ IV CONTRST ONLY Indication: Right lower quadrant pain Technique: Postcontrast CT imaging was performed of the abdomen pelvis, multiplanar reconstruction images submitted. No oral contrast was given as per request. One or more of the following individualized dose reduction techniques were utilized for this examination: 1. Automated exposure control 2. Adjustment of the mA and/or kV according to patient size 3. Use of iterative reconstruction technique. Comparison: September 07, 2018 Findings: There is some motion degradation. There is no significant abnormality of the limited visualized lung bases. There is again 2.5 cm of fat density associated with the left adrenal gland. There again has been cholecystectomy. No new focal abnormality is identified of the pancreas, liver, spleen. Both kidneys enhance, no significant hydronephrosis or perinephric fluid collection. Evaluation of bowel somewhat limited without oral contrast. Normal appendix is visualized. Bowel is not significantly dilated. There is no free fluid or free air. There is retained stool greater of the rectosigmoid colon and right colon. There are again several scattered small retroperitoneal and mesenteric nodes. IMPRESSION: 1. No significant acute abnormality is identified, no CT evidence of acute appendicitis. There is some retained stool greater in the region of rectosigmoid colon. 2. 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 Electronically signed by: Bry Rooney MD (12/29/2018 2:32 PM) [id number]
[2018-12-29] MEDS ORDERED: MORPHINE SULFATE 4 MG/ML VIAL. IV ONE (15:15)
--- NOTE | 2018-12-29 15:21 | PDOC1 ---
History and Physical Date of Admission Date of Admission DATE: 12/29/18 TIME: 15:01 Identification/Chief Complaint Chief Complaint Abdominal pain Source Source: Patient History of Present Illness History of Present Illness Ms Parker is a 38 yo F w/ PMHx HTN, GERD, anxiety/depression, DM2, obesity who p/w right lower quadrant abdominal pain, which developed over the past 12-24 hours. She has had nausea but no vomiting, no urinary symptoms, or no diarrhea. She has not had any fevers or chills or recent sick contacts. She has had a prior cholecystectomy, hernia surgery, as well as hysterectomy, but she still has an appendix. She also states that she is having trouble keeping her blood sugar elevated. Her initial blood sugar upon arrival in the emergency department is in the 30s, she was given juice with improvement in her sugar to the 80s, but subsequently she felt that her blood sugar was low again and it was again in the 30s. She'll be given dextrose IV as well as a dextrose infusion. She started taking Ozempic (semaglutide) for diabetes a few months ago and started going back to work 1 week ago. She has taken no other injectable or oral hypoglycemic agents. Her transaminases and lipase were also mildly elevated. There are no alleviating or exacerbating factors to the patient's symptoms. CT abdomen/pelvis was negative for appendicitis, showed stool in colon and left adrenal lipoma. Patient will be admitted for symptomatic hypoglycemia. Past Medical History Cardiovascular: HTN GI: GERD Psych: Anxiety, Depression Endocrine: Diabetes Past Surgical History Past Surgical History: Cholecystectomy, Hysterectomy Family History Family History: Diabetes, Hypertension Social History Smoke: No ALCOHOL: none Drugs: None Current Medications Current Medications Current Medications Dextrose/Sodium Chloride 1,000 ml @ 125 mls/hr 1X ONCE IV Last administered on 12/29/18at 13:48; Start 12/29/18 at 13:30; Stop 12/29/18 at 21:29 Morphine Sulfate (Morphine Sulfate) 4 mg PRN Q15MIN PRN IV/SQ PAIN GREATER THAN 3/10 Last administered on 12/29/18at 13:43; Start 12/29/18 at 13:30; Stop 12/30/18 at 13:29 Ondansetron HCl (Zofran) 4 mg 1X ONCE IV Last administered on 12/29/18at 13:44; Start 12/29/18 at 13:30; Stop 12/29/18 at 13:34; Status DC Dextrose (Dextrose 50%-Water Syringe) 25 gm 1X ONCE IV Last administered on 12/29/18at 13:43; Start 12/29/18 at 13:45; Stop 12/29/18 at 13:46; Status DC Iohexol (Omnipaque 300 Mg/ml) 75 ml 1X ONCE IV Last administered on 12/29/18at 14:14; Start 12/29/18 at 13:45; Stop 12/29/18 at 13:46; Status DC Info (CONTRAST GIVEN -- Rx MONITORING) 1 each PRN DAILY PRN MC SEE COMMENTS; Start 12/29/18 at 13:45; Stop 12/31/18 at 13:44 Active Scripts Active Reported Percocet 5-325 Mg Tablet (Oxycodone/Acetaminophen) 1 Each Tablet 1-2 Tab PO PRN Q4-6HRS PRN Black Cohosh 540 Mg Capsule 540 Mg PO DAILY Amitiza (Lubiprostone) 8 Mcg Capsule 8 Mcg PO DAILY Tresiba Flextouch U-100 (Insulin Degludec) 100 Unit/1 Ml Insuln.pen 30 Unit SQ HS Humalog (Insulin Lispro) 100 Unit/1 Ml Cartridge 12 Unit SQ PRN BFRMEAL PRN Pristiq Er (Desvenlafaxine Succinate) 50 Mg Tab.er.24h 1 Tab PO DAILY Alprazolam 0.5 Mg Tablet 1 Mg PO PRN TID PRN Trazodone Hcl 100 Mg Tablet 1 Tab PO QHS Gabapentin (Gabapentin) 300 Mg Capsule 300 Mg PO HS Protonix (Pantoprazole Sodium) 20 Mg Tablet.dr 40 Mg PO DAILY Allergies Allergies: Coded Allergies: levofloxacin (Verified Allergy, Intermediate, Rash, 09/27/18) vancomycin (Verified Allergy, Intermediate, Rash, 09/27/18) ROS General: YES: Fatigue, Malaise, Appetite; No: Chills, Night Sweats, Other PSYCHOLOGICAL ROS: YES: Anxiety; No: Behavioral Disorder, Concentration difficultie, Decreased libido, Depression, Disorientation, Hallucinations, Hostility, Irritablity, Memory difficulties, Mood Swings, Obsessive thoughts, Physical abuse, Sexual abuse, Sleep disturbances, Suicidal ideation, Other Eyes: No Blurry vision, No Decreased vision, No Double vision, No Dry eyes, No Excessive tearing, No Eye Pain, No Itchy Eyes, No Loss of vision, No Photophobia, No Scotomata, No Uses contacts, No Uses glasses, No Other HEENT: No: Heacaches, Visual Changes, Hearing change, Nasal congestion, Nasal discharge, Oral lesions, Sinus pain, Sore Throat, Epistaxis, Sneezing, Snoring, Tinnitus, Vertigo, Vocal changes, Other ALLERGY AND IMMUNOLOGY: No: Hives, Insect Bite Sensitivity, Itchy/Watery Eyes, Nasal Congestion, Post Nasal Drip, Seasonal Allergies, Other ENDOCRINE: YES: Malaise/lethargy; No: Breast Changes, Galactorrhea, Hair Pattern Changes, Hot Flashes, Mood Swings, Palpitations, Polydipsia/polyuria, Skin Changes, Temperature Intolerance, Unexpected Weight Changes, Other Breast: No New/Changing Breast Lumps, No Nipple changes, No Nipple discharge, No Other Respiratory: No: Cough, Hemoptysis, Orthopnea, Pleuritic Pain, Shortness of b reath, SOB with excertion, Sputum Changes, Stridor, Tachypnea, Wheezing, Other Cardiovascular: No Chest Pain, No Palpitations, No Orthopnea, No Paroxysmal Noc. Dyspnea, No Edema, No Lt Headedness, No Other Gastrointestinal: Yes Nausea, Yes Abdominal Pain, Yes Diarrhea; No Vomiting, No Constipation, No Melena, No Hematochezia, No Other Genitourinary: No Dysuria, No Frequency, No Incontinence, No Hematuria, No Retention, No Discharge, No Urgency, No Pain, No Flank Pain, No Other, No , No , No , No , No , No , No Musculoskeletal: No Gait Disturbance, No Joint Pain, No Joint Stiffness, No Joint Swelling, No Muscle Pain, No Muscular Weakness, No Pain In:, No Swelling In:, No Other Neurological: No Behavorial Changes, No Bowel/Bladder ControlChng, No Confusion, No Dizziness, No Gait Disturbance, No Headaches, No Impaired Coord/balance, No Memory Loss, No Numbness/Tingling, No Seizures, No Speech Problems, No Tremors, No Visual Changes, No Weakness, No Other Skin: No Dry Skin, No Eczema, No Hair Changes, No Lumps, No Mole Changes, No Mottling, No Nail Changes, No Pruritus, No Rash, No Skin Lesion Changes, No Other, No Acne Physical Exam General: Alert, Oriented X3, Cooperative, No acute distress HEENT: Atraumatic, PERRLA, EOMI, Mucous membr. moist/pink Lungs: Clear to auscultation, Normal air movement Heart: S1S2, RRR Abdomen: Normal bowel sounds, Soft, No hepatosplenomegaly, No masses, Other (RLQ tender) Extremities: No clubbing, No cyanosis, No edema, Normal pulses, No tenderness/swelling Skin: No rashes, No breakdown, No significant lesion Neuro: Normal gait, Normal speech, Strength at 5/5 X4 ext, Normal tone, Sensation intact, Cranial nerves 3-12 NL, Reflexes 2+ Psych/Mental Status: Mental status NL, Mood NL Vitals Vitals Vital Signs Date Time Temp Pulse Resp B/P (MAP) Pulse Ox O2 Delivery O2 Flow Rate FiO2 12/29/18 14:00 83 16 107/57 (74) 97 Room Air 12/29/18 12:20 98.9 98.9 Labs Labs Laboratory Tests Test 12/29/18 12:25 12/29/18 12:28 12/29/18 12:40 12/29/18 13:04 Urine Color Yellow Urine Clarity Clear Urine pH 5.5 Urine Specific [place] <=1.005 Urine Protein Negative mg/dL (NEG-TRACE) Urine Glucose (UA) Negative mg/dL (NEG) Urine Ketones (Stick) Negative mg/dL (NEG) Urine Blood Large (NEG) Urine Nitrite Negative (NEG) Urine Bilirubin Negative (NEG) Urine Urobilinogen Dipstick 0.2 mg/dL (0.2 mg/dL) Urine Leukocyte Esterase Trace (NEG) Urine RBC 3-5 /HPF (0-2) Urine WBC 1-4 /HPF (0-4) Urine Squamous Epithelial Cells Occ /LPF Urine Bacteria Few /HPF (0-FEW) Glucose (Fingerstick) 39 mg/dL (70-99) 76 mg/dL (70-99) White Blood Count 13.2 x10^3/uL (4.0-11.0) Red Blood Count 5.19 x10^6/uL (3.50-5.40) Hemoglobin 14.9 g/dL (12.0-15.5) Hematocrit 44.5 % (36.0-47.0) Mean Corpuscular Volume 86 fL (79-100) Mean Corpuscular Hemoglobin 29 pg (25-35) Mean Corpuscular Hemoglobin Concent 34 g/dL (31-37) Red Cell Distribution Width 15.2 % (11.5-14.5) Platelet Count 302 x10^3/uL (140-400) Neutrophils (%) (Auto) 66 % (31-73) Lymphocytes (%) (Auto) 26 % (24-48) Monocytes (%) (Auto) 8 % (0-9) Eosinophils (%) (Auto) 1 % (0-3) Basophils (%) (Auto) 0 % (0-3) Neutrophils # (Auto) 8.7 x10^3uL (1.8-7.7) Lymphocytes # (Auto) 3.4 x10^3/uL (1.0-4.8) Monocytes # (Auto) 1.0 x10^3/uL (0.0-1.1) Eosinophils # (Auto) 0.1 x10^3/uL (0.0-0.7) Basophils # (Auto) 0.0 x10^3/uL (0.0-0.2) Sodium Level 140 mmol/L (136-145) Potassium Level 3.1 mmol/L (3.5-5.1) Chloride Level 104 mmol/L (98-107) Carbon Dioxide Level 29 mmol/L (21-32) Anion Gap 7 (6-14) Blood Urea Nitrogen 7 mg/dL (7-20) Creatinine 0.6 mg/dL (0.6-1.0) Estimated GFR (Cockcroft-Gault) 111.9 BUN/Creatinine Ratio 12 (6-20) Glucose Level 43 mg/dL (70-99) Calcium Level 10.2 mg/dL (8.5-10.1) Total Bilirubin 0.4 mg/dL (0.2-1.0) Aspartate Amino Transf (AST/SGOT) 44 U/L (15-37) Alanine Aminotransferase (ALT/SGPT) 88 U/L (14-59) Alkaline Phosphatase 93 U/L (46-116) Total Protein 7.6 g/dL (6.4-8.2) Albumin 3.9 g/dL (3.4-5.0) Albumin/Globulin Ratio 1.1 (1.0-1.7) Lipase 63 U/L (73-393) Test 12/29/18 13:35 12/29/18 14:33 Glucose (Fingerstick) 34 mg/dL (70-99) 74 mg/dL (70-99) Laboratory Tests Test 12/29/18 12:25 12/29/18 12:28 12/29/18 12:40 12/29/18 13:04 Urine Color Yellow Urine Clarity Clear Urine pH 5.5 Urine Specific [place] <=1.005 Urine Protein Negative mg/dL (NEG-TRACE) Urine Glucose (UA) Negative mg/dL (NEG) Urine Ketones (Stick) Negative mg/dL (NEG) Urine Blood Large (NEG) Urine Nitrite Negative (NEG) Urine Bilirubin Negative (NEG) Urine Urobilinogen Dipstick 0.2 mg/dL (0.2 mg/dL) Urine Leukocyte Esterase Trace (NEG) Urine RBC 3-5 /HPF (0-2) Urine WBC 1-4 /HPF (0-4) Urine Squamous Epithelial Cells Occ /LPF Urine Bacteria Few /HPF (0-FEW) Glucose (Fingerstick) 39 mg/dL (70-99) 76 mg/dL (70-99) White Blood Count 13.2 x10^3/uL (4.0-11.0) Red Blood Count 5.19 x10^6/uL (3.50-5.40) Hemoglobin 14.9 g/dL (12.0-15.5) Hematocrit 44.5 % (36.0-47.0) Mean Corpuscular Volume 86 fL (79-100) Mean Corpuscular Hemoglobin 29 pg (25-35) Mean Corpuscular Hemoglobin Concent 34 g/dL (31-37) Red Cell Distribution Width 15.2 % (11.5-14.5) Platelet Count 302 x10^3/uL (140-400) Neutrophils (%) (Auto) 66 % (31-73) Lymphocytes (%) (Auto) 26 % (24-48) Monocytes (%) (Auto) 8 % (0-9) Eosinophils (%) (Auto) 1 % (0-3) Basophils (%) (Auto) 0 % (0-3) Neutrophils # (Auto) 8.7 x10^3uL (1.8-7.7) Lymphocytes # (Auto) 3.4 x10^3/uL (1.0-4.8) Monocytes # (Auto) 1.0 x10^3/uL (0.0-1.1) Eosinophils # (Auto) 0.1 x10^3/uL (0.0-0.7) Basophils # (Auto) 0.0 x10^3/uL (0.0-0.2) Sodium Level 140 mmol/L (136-145) Potassium Level 3.1 mmol/L (3.5-5.1) Chloride Level 104 mmol/L (98-107) Carbon Dioxide Level 29 mmol/L (21-32) Anion Gap 7 (6-14) Blood Urea Nitrogen 7 mg/dL (7-20) Creatinine 0.6 mg/dL (0.6-1.0) Estimated GFR (Cockcroft-Gault) 111.9 BUN/Creatinine Ratio 12 (6-20) Glucose Level 43 mg/dL (70-99) Calcium Level 10.2 mg/dL (8.5-10.1) Total Bilirubin 0.4 mg/dL (0.2-1.0) Aspartate Amino Transf (AST/SGOT) 44 U/L (15-37) Alanine Aminotransferase (ALT/SGPT) 88 U/L (14-59) Alkaline Phosphatase 93 U/L (46-116) Total Protein 7.6 g/dL (6.4-8.2) Albumin 3.9 g/dL (3.4-5.0) Albumin/Globulin Ratio 1.1 (1.0-1.7) Lipase 63 U/L (73-393) Test 12/29/18 13:35 12/29/18 14:33 Glucose (Fingerstick) 34 mg/dL (70-99) 74 mg/dL (70-99) Images Images CT abdomen/pelvis - 1. No significant acute abnormality is identified, no CT evidence of acute appendicitis. There is some retained stool greater in the region of rectosigmoid colon. 2. 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 VTE Prophylaxis Ordered VTE Prophylaxis Devices: Yes VTE Pharmacological Prophylaxi: No Assessment/Plan Assessment/Plan A/P: Symptomatic hypoglycemia - likely 2/2 GLP-[address] on D5 overnight. Monitor blood glucose closely Abdominal pain - with transaminitis and mild lipase elevation she is likely having side effect of semaglutide. I have recommended to stop using it HTN - cont home meds GERD - cont PPI Anxiety/depression - cont home meds DM2 - will need alternative therapy, SGLT-2, extended release metformin. Insulin therapy for now Obesity - counseled on weight loss FEN - ADA diet PPX - SCDs FULL CODE Inpatient for hypoglycemia at least 2 days JOHN PAUL ROMO MD December 29, 2018 15:21
[2018-12-29] MEDS ORDERED: POTASSIUM CL 20MEQ D5-0.45NACL 1,000 ML IV ONE (16:15)
[2018-12-29] MEDS: INSULIN LISPRO 300 UNITS/3 ML INSULN.PEN. SQ SCH (17:00)
[2018-12-29] MEDS: LUBIPROSTONE 8 MCG CAPSULE PO SCH (17:00)
[2018-12-29 19:00] VITALS: BP 109/60
[2018-12-29] MEDS: oxyCODONE/APAP 5/325 1 TAB TABLET PO PRN (19:32)
--- NOTE | 2018-12-29 20:18 | NUR ---
Received report from [facility] in ED. Pt settled into room.
[2018-12-29] MEDS ORDERED: DESV50TA PO (20:36)
[2018-12-29] MEDS: POTASSIUM CL 20MEQ D5-0.45NACL 1,000 ML IV SCH (20:45)
[2018-12-29] MEDS: traZODone 100 MG TABLET. PO SCH (21:21)
[2018-12-29] MEDS: GABAPENTIN 300 MG CAPSULE. PO SCH (21:21)
[2018-12-29] MEDS: ALPRAZolam 0.25 MG TABLET PO PRN (21:21)
[2018-12-29] MEDS: DEXTROSE 50% 25 GM / 50ML DISP.SYRIN. IV PRN (21:22)
[2018-12-29 22:45] VITALS: BP 107/49
[2018-12-30] MEDS: DEXTROSE 50% 25 GM / 50ML DISP.SYRIN. IV PRN (00:57)
[2018-12-30] MEDS: IV DEXTROSE 5% - 0.9 % NACL 1,000 ML IV SCH ×4 (01:49→21:45)
[2018-12-30 03:00] VITALS: BP 94/47
[2018-12-30] MEDS: oxyCODONE/APAP 5/325 1 TAB TABLET PO PRN ×3 (05:53→19:49)
[2018-12-30 07:00] VITALS: BP 100/55
[2018-12-30] MEDS: INSULIN LISPRO 300 UNITS/3 ML INSULN.PEN. SQ SCH ×3 (07:34→17:00)
[2018-12-30] MEDS: PANTOPRAZOLE 40 MG TABLET.DR. PO SCH (07:38)
[2018-12-30] MEDS: POTASSIUM CL 20MEQ D5-0.45NACL 1,000 ML IV SCH ×3 (07:40→21:05)
--- NOTE | 2018-12-30 08:08 | NUR ---
IV D51/2NS+20Kcl hanging as secondary infusion in room, not given. Full bag - dumped because would be over 24hours old when complete. New bag scanned and hung.
[2018-12-30] MEDS: LUBIPROSTONE 8 MCG CAPSULE PO SCH (09:00)
[2018-12-30] MEDS: DESVENLAFAXINE 25 MG TAB.ER.24H PO SCH (09:03)
--- NOTE | 2018-12-30 10:46 | NUR ---
Patient stated had been having diarrhea all day today, stool collected and sent for testing. Patient placed in precautions. Will continue to monitor patient for changes.
[2018-12-30 11:08] VITALS: BP 104/59
--- NOTE | 2018-12-30 13:28 | PDOC ---
PROGRESS NOTES Chief Complaint Chief Complaint Symptomatic hypoglycemia - likely 2/2 GLP-[address] on D5 overnight. Monitor blood glucose closely Abdominal pain - with transaminitis and mild lipase elevation she is likely having side effect of semaglutide. I have recommended to stop using it HTN - cont home meds GERD - cont PPI Anxiety/depression - cont home meds DM2 - will need alternative therapy, SGLT-2, extended release metformin. Insulin therapy for now Obesity - counseled on weight loss History of Present Illness History of Present Illness Patient was seen and examined She is having some loose stools Discussed with RN Glucose is currently 64 but dropped even lower earlier Patient is on D5 Vitals Vitals Vital Signs Date Time Temp Pulse Resp B/P (MAP) Pulse Ox O2 Delivery O2 Flow Rate FiO2 12/30/18 12:53 Room Air 12/30/18 11:08 97.5 72 16 104/59 (74) 97 97.5 Physical Exam General: Alert, Oriented X3, Cooperative, No acute distress Heart: Regular rate, Normal S1 Lungs: Clear Abdomen: Normal bowel sounds, Soft, No hepatosplenomegaly, No masses, Other (RLQ tender) Extremities: No clubbing, No cyanosis, No edema, Normal pulses, No tenderness/swelling Skin: No rashes, No breakdown, No significant lesion Labs LABS Laboratory Tests Test 12/29/18 13:35 12/29/18 14:33 12/29/18 15:28 12/29/18 17:10 Glucose (Fingerstick) 34 mg/dL (70-99) 74 mg/dL (70-99) 43 mg/dL (70-99) 56 mg/dL (70-99) Test 12/29/18 21:00 12/29/18 21:52 12/30/18 00:48 12/30/18 01:02 Glucose (Fingerstick) 65 mg/dL (70-99) 95 mg/dL (70-99) 23 mg/dL (70-99) 199 mg/dL (70-99) Test 12/30/18 01:06 12/30/18 01:45 12/30/18 02:41 12/30/18 05:32 Glucose (Fingerstick) 171 mg/dL (70-99) 93 mg/dL (70-99) 69 mg/dL (70-99) Glucose Level 122 mg/dL (70-99) Test 12/30/18 10:14 Glucose (Fingerstick) 85 mg/dL (70-99) Review of Systems Review of Systems She she complains of weakness and abdominal pain Assessment and Plan Assessmemt and Plan Problems Medical Problems: (1) Abdominal pain Status: Acute Symptomatic hypoglycemia - likely 2/2 GLP-[address] on D5 overnight. Monitor blood glucose closely Abdominal pain - with transaminitis and mild lipase elevation she is likely having side effect of semaglutide. I have recommended to stop using it HTN - cont home meds GERD - cont PPI Anxiety/depression - cont home meds DM2 - will need alternative therapy, SGLT-2, extended release metformin. Insulin therapy for now Obesity - counseled on weight loss Plan IV glucose Consult GI Hold diabetic meds Frequent labs DVT prophylaxis Full code Comment Review of Relevant I have reviewed the following items sharda (where applicable) has been applied. Labs Laboratory Tests Test 12/29/18 12:25 12/29/18 12:28 12/29/18 12:40 12/29/18 13:04 Urine Color Yellow Urine Clarity Clear Urine pH 5.5 Urine Specific [place] <=1.005 Urine Protein Negative mg/dL (NEG-TRACE) Urine Glucose (UA) Negative mg/dL (NEG) Urine Ketones (Stick) Negative mg/dL (NEG) Urine Blood Large (NEG) Urine Nitrite Negative (NEG) Urine Bilirubin Negative (NEG) Urine Urobilinogen Dipstick 0.2 mg/dL (0.2 mg/dL) Urine Leukocyte Esterase Trace (NEG) Urine RBC 3-5 /HPF (0-2) Urine WBC 1-4 /HPF (0-4) Urine Squamous Epithelial Cells Occ /LPF Urine Bacteria Few /HPF (0-FEW) Glucose (Fingerstick) 39 mg/dL (70-99) 76 mg/dL (70-99) White Blood Count 13.2 x10^3/uL (4.0-11.0) Red Blood Count 5.19 x10^6/uL (3.50-5.40) Hemoglobin 14.9 g/dL (12.0-15.5) Hematocrit 44.5 % (36.0-47.0) Mean Corpuscular Volume 86 fL (79-100) Mean Corpuscular Hemoglobin 29 pg (25-35) Mean Corpuscular Hemoglobin Concent 34 g/dL (31-37) Red Cell Distribution Width 15.2 % (11.5-14.5) Platelet Count 302 x10^3/uL (140-400) Neutrophils (%) (Auto) 66 % (31-73) Lymphocytes (%) (Auto) 26 % (24-48) Monocytes (%) (Auto) 8 % (0-9) Eosinophils (%) (Auto) 1 % (0-3) Basophils (%) (Auto) 0 % (0-3) Neutrophils # (Auto) 8.7 x10^3uL (1.8-7.7) Lymphocytes # (Auto) 3.4 x10^3/uL (1.0-4.8) Monocytes # (Auto) 1.0 x10^3/uL (0.0-1.1) Eosinophils # (Auto) 0.1 x10^3/uL (0.0-0.7) Basophils # (Auto) 0.0 x10^3/uL (0.0-0.2) Sodium Level 140 mmol/L (136-145) Potassium Level 3.1 mmol/L (3.5-5.1) Chloride Level 104 mmol/L (98-107) Carbon Dioxide Level 29 mmol/L (21-32) Anion Gap 7 (6-14) Blood Urea Nitrogen 7 mg/dL (7-20) Creatinine 0.6 mg/dL (0.6-1.0) Estimated GFR (Cockcroft-Gault) 111.9 BUN/Creatinine Ratio 12 (6-20) Glucose Level 43 mg/dL (70-99) Calcium Level 10.2 mg/dL (8.5-10.1) Total Bilirubin 0.4 mg/dL (0.2-1.0) Aspartate Amino Transf (AST/SGOT) 44 U/L (15-37) Alanine Aminotransferase (ALT/SGPT) 88 U/L (14-59) Alkaline Phosphatase 93 U/L (46-116) Total Protein 7.6 g/dL (6.4-8.2) Albumin 3.9 g/dL (3.4-5.0) Albumin/Globulin Ratio 1.1 (1.0-1.7) Lipase 63 U/L (73-393) Test 12/29/18 13:35 12/29/18 14:33 12/29/18 15:28 12/29/18 17:10 Glucose (Fingerstick) 34 mg/dL (70-99) 74 mg/dL (70-99) 43 mg/dL (70-99) 56 mg/dL (70-99) Test 12/29/18 21:00 12/29/18 21:52 12/30/18 00:48 12/30/18 01:02 Glucose (Fingerstick) 65 mg/dL (70-99) 95 mg/dL (70-99) 23 mg/dL (70-99) 199 mg/dL (70-99) Test 12/30/18 01:06 12/30/18 01:45 12/30/18 02:41 12/30/18 05:32 Glucose (Fingerstick) 171 mg/dL (70-99) 93 mg/dL (70-99) 69 mg/dL (70-99) Glucose Level 122 mg/dL (70-99) Test 12/30/18 10:14 Glucose (Fingerstick) 85 mg/dL (70-99) Laboratory Tests Test 12/29/18 13:35 12/29/18 14:33 12/29/18 15:28 12/29/18 17:10 Glucose (Fingerstick) 34 mg/dL (70-99) 74 mg/dL (70-99) 43 mg/dL (70-99) 56 mg/dL (70-99) Test 12/29/18 21:00 12/29/18 21:52 12/30/18 00:48 12/30/18 01:02 Glucose (Fingerstick) 65 mg/dL (70-99) 95 mg/dL (70-99) 23 mg/dL (70-99) 199 mg/dL (70-99) Test 12/30/18 01:06 12/30/18 01:45 12/30/18 02:41 12/30/18 05:32 Glucose (Fingerstick) 171 mg/dL (70-99) 93 mg/dL (70-99) 69 mg/dL (70-99) Glucose Level 122 mg/dL (70-99) Test 12/30/18 10:14 Glucose (Fingerstick) 85 mg/dL (70-99) Medications Current Medications Dextrose/Sodium Chloride 1,000 ml @ 125 mls/hr 1X ONCE IV Last administered on 12/29/18at 13:48; Start 12/29/18 at 13:30; Stop 12/29/18 at 21:29; Status DC Morphine Sulfate (Morphine Sulfate) 4 mg PRN Q15MIN PRN IV/SQ PAIN GREATER THAN 3/10 Last administered on 12/29/18at 15:35; Start 12/29/18 at 13:30; Stop 12/30/18 at 13:29 Ondansetron HCl (Zofran) 4 mg 1X ONCE IV Last administered on 12/29/18at 13:44; Start 12/29/18 at 13:30; Stop 12/29/18 at 13:34; Status DC Dextrose (Dextrose 50%-Water Syringe) 25 gm 1X ONCE IV Last administered on 12/29/18at 13:43; Start 12/29/18 at 13:45; Stop 12/29/18 at 13:46; Status DC Iohexol (Omnipaque 300 Mg/ml) 75 ml 1X ONCE IV Last administered on 12/29/18at 14:14; Start 12/29/18 at 13:45; Stop 12/29/18 at 13:46; Status DC Info (CONTRAST GIVEN -- Rx MONITORING) 1 each PRN DAILY PRN MC SEE COMMENTS; Start 12/29/18 at 13:45; Stop 12/31/18 at 13:44 Morphine Sulfate (Morphine Sulfate) 4 mg 1X ONCE IV ; Start 12/29/18 at 15:15; Stop 12/29/18 at 15:16; Status DC Alprazolam (Xanax) 0.25 mg PRN DAILY PRN PO ANXIETY Last administered on 12/29/18at 21:21; Start 12/29/18 at 15:45 Gabapentin (Neurontin) 300 mg HS PO Last administered on 12/29/18at 21:21; Start 12/29/18 at 21:00 Lubiprostone (Amitiza) 8 mcg DAILY PO ; Start 12/29/18 at 17:00 Oxycodone/ Acetaminophen (Percocet 5/325) 1 tab PRN Q6HRS PRN PO PAIN Last administered on 12/30/18at 12:53; Start 12/29/18 at 15:45 Trazodone HCl (Desyrel) 100 mg QHS PO Last administered on 12/29/18at 21:21; Start 12/29/18 at 21:00 Pantoprazole Sodium (Protonix) 40 mg DAILYAC PO Last administered on 12/30/18at 07:38; Start 12/30/18 at 07:30 Dextrose (Dextrose 50%-Water Syringe) 12.5 gm 1X ONCE IV Last administered on 12/29/18at 15:39; Start 12/29/18 at 15:45; Stop 12/29/18 at 15:46; Status DC Insulin Human Lispro (HumaLOG) 0-5 UNITS TIDWMEALS SQ ; Start 12/29/18 at 17:00 Dextrose (Dextrose 50%-Water Syringe) 12.5 gm PRN Q15MIN PRN IV SEE COMMENTS Last administered on 12/30/18at 00:57; Start 12/29/18 at 16:15 Potassium Chloride/Dextrose/ Sod Cl 1,000 ml @ 75 mls/hr 1X ONCE IV Last administered on 12/29/18at 21:23; Start 12/29/18 at 16:15; Stop 12/30/18 at 05:34; Status DC Desvenlafaxine Succinate (Pristiq Er) 50 mg DAILY PO Last administered on 12/30/18at 09:03; Start 12/30/18 at 09:00 Potassium Chloride/Dextrose/ Sod Cl 1,000 ml @ 125 mls/hr Q8H IV Last administered on 12/30/18at 07:40; Start 12/29/18 at 20:45 Dextrose/Sodium Chloride 1,000 ml @ 150 mls/hr Q6H40M IV Last administered on 12/30/18at 01:49; Start 12/30/18 at 01:45 Active Scripts Active Reported Pristiq Er (Desvenlafaxine Succinate) 50 Mg Tab.er.24h 50 Mg PO DAILY Percocet 5-325 Mg Tablet (Oxycodone/Acetaminophen) 1 Each Tablet 1-2 Tab PO PRN Q4-6HRS PRN Black Cohosh 540 Mg Capsule 540 Mg PO DAILY Amitiza (Lubiprostone) 8 Mcg Capsule 8 Mcg PO DAILY Tresiba Flextouch U-100 (Insulin Degludec) 100 Unit/1 Ml Insuln.pen 30 Unit SQ HS Humalog (Insulin Lispro) 100 Unit/1 Ml Cartridge 12 Unit SQ PRN BFRMEAL PRN Pristiq Er (Desvenlafaxine Succinate) 50 Mg Tab.er.24h 1 Tab PO DAILY Alprazolam 0.5 Mg Tablet 1 Mg PO PRN TID PRN Trazodone Hcl 100 Mg Tablet 1 Tab PO QHS Gabapentin (Gabapentin) 300 Mg Capsule 300 Mg PO HS Protonix (Pantoprazole Sodium) 20 Mg Tablet.dr 40 Mg PO DAILY Vitals/I & O Vital Sign - Last 24 Hours 12/29/18 12/29/18 12/29/18 12/29/18 13:30 13:43 14:00 15:00 Pulse 85 83 92 Resp 16 18 16 19 B/P (MAP) 121/83 (96) 107/57 (74) 114/63 (80) Pulse Ox 99 95 97 97 O2 Delivery Room Air Room Air Room Air Room Air 12/29/18 12/29/18 12/29/18 12/29/18 15:30 15:35 16:30 18:39 Pulse 95 91 Resp 18 19 B/P (MAP) 111/59 (76) 105/58 (74) Pulse Ox 98 95 98 O2 Delivery Room Air Room Air Room Air Room Air 12/29/18 12/29/18 12/29/18 12/29/18 19:00 19:32 20:20 22:45 Temp 98.9 97.8 98.9 97.8 Pulse 83 74 Resp 17 16 B/P (MAP) 109/60 (76) 107/49 (68) Pulse Ox 96 95 O2 Delivery Room Air Room Air Room Air Room Air 12/30/18 12/30/18 12/30/18 12/30/18 03:00 05:53 06:53 07:00 Temp 98.0 98.0 Pulse 81 92 Resp 17 17 B/P (MAP) 94/47 (63) 100/55 (70) Pulse Ox 92 92 92 96 O2 Delivery Room Air Room Air Room Air Room Air 12/30/18 12/30/18 12/30/18 08:03 11:08 12:53 Temp 97.5 97.5 Pulse 72 Resp 16 B/P (MAP) 104/59 (74) Pulse Ox 97 O2 Delivery Room Air Room Air Room Air Intake and Output 12/29/18 12/29/1812/30/19 15:00 23:00 07:00 Intake Total 700 ml Balance 700 ml SHAWNA CALI III DO December 30, 2018 13:28
--- NOTE | 2018-12-30 13:51 | PDOC2 ---
GI CONSULT Reason For Consult: Abd pain HPI: HPI: 38 y/o female admitted w/ symptomatic hypoglycemia and abd pain thought possibly related to semaglutide. Currently eating [place] fries. Tells me LUQ and RLQ pain for a few days w/ watery diarrhea. Constant, crampy or sharp, might be worse after eating. She agrees possibly precipitated by starting new DM med. Estimates 10 watery stools today. No recent travel or sick contacts. No bleeding. C Diff pending. H/o GERD controlled w/ pantoprazole QD. Can see pathology from EGD w/ Dr. Khanna in 05/2015 - distal esophageal biopsy c/w reflux (no Martinez's). H/o n/v. GES in 2014 did not show gross delay in emptying but noted some lag phase with some stasis of radiotracer within the stomach prior to gastric emptying. Used Reglan in the past but noted associated lip twitching. H/o constipation previously controlled w/ Linzess - she has not needed anything for constipation recently. Reports more than 1 colonoscopy in the past w/ polyps, thinks last done @ [facility] in 2018. S/p cholecystectomy ("not functioning" - no stones). H/o PHILLIPS. Takes "some" ibuprofen "but not as much as before." PMH: PMH: IDDM, depression, UTI, GERD, gastroparesis, constipation, PHILLIPS, colon polyps, left adrenal myolipoma cholecystectomy, hysterectomy, tonsillectomy, excision of inguinal and axillary hidradenitis, ventral hernia repair w/ mesh FH: Family History: Other (mother - colon polyps) Social History: Smoke: <1 pack per day ALCOHOL: none Drugs: None ROS: GEN: Denies fevers, chills, sweats HEENT: Denies blurred vision, sore throat CV: Denies chest pain RESP: Denies shortness of air, cough GI: Per HPI : Denies hematuria, dysuria ENDO: Denies weight changes NEURO: Denies confusion, dizziness MSK: Denies weakness, joint pain/swelling SKIN: Denies jaundice, pruritus Vitals: Vitals: Vital Signs Date Time Temp Pulse Resp B/P (MAP) Pulse Ox O2 Delivery O2 Flow Rate FiO2 12/30/18 12:53 Room Air 12/30/18 11:08 97.5 72 16 104/59 (74) 97 97.5 Labs: Labs: Laboratory Tests Test 12/29/18 14:33 12/29/18 15:28 12/29/18 17:10 12/29/18 21:00 Glucose (Fingerstick) 74 mg/dL (70-99) 43 mg/dL (70-99) 56 mg/dL (70-99) 65 mg/dL (70-99) Test 12/29/18 21:52 12/30/18 00:48 12/30/18 01:02 12/30/18 01:06 Glucose (Fingerstick) 95 mg/dL (70-99) 23 mg/dL (70-99) 199 mg/dL (70-99) 171 mg/dL (70-99) Test 12/30/18 01:45 12/30/18 02:41 12/30/18 05:32 12/30/18 10:14 Glucose Level 122 mg/dL (70-99) Glucose (Fingerstick) 93 mg/dL (70-99) 69 mg/dL (70-99) 85 mg/dL (70-99) Allergies: Coded Allergies: levofloxacin (Verified Allergy, Intermediate, Rash, 09/27/18) vancomycin (Verified Allergy, Intermediate, Rash, 09/27/18) Medications: Current Medications Medications (Trade) Dose Ordered Sig/Taqueria Route PRN Reason Start Time Stop Time Status Last Admin Dose Admin Dextrose (Dextrose 50%-Water Syringe) 25 gm 1X ONCE IV 12/29/18 13:45 12/29/18 13:46 DC 12/29/18 13:43 Iohexol (Omnipaque 300 Mg/ml) 75 ml 1X ONCE IV 12/29/18 13:45 12/29/18 13:46 DC 12/29/18 14:14 Alprazolam (Xanax) 0.25 mg PRN DAILY PRN PO ANXIETY 12/29/18 15:45 12/29/18 21:21 Gabapentin (Neurontin) 300 mg HS PO 12/29/18 21:00 12/29/18 21:21 Oxycodone/ Acetaminophen (Percocet 5/325) 1 tab PRN Q6HRS PRN PO PAIN 12/29/18 15:45 12/30/18 12:53 Trazodone HCl (Desyrel) 100 mg QHS PO 12/29/18 21:00 12/29/18 21:21 Pantoprazole Sodium (Protonix) 40 mg DAILYAC PO 12/30/18 07:30 12/30/18 07:38 Dextrose (Dextrose 50%-Water Syringe) 12.5 gm 1X ONCE IV 12/29/18 15:45 12/29/18 15:46 DC 12/29/18 15:39 Dextrose (Dextrose 50%-Water Syringe) 12.5 gm PRN Q15MIN PRN IV SEE COMMENTS 12/29/18 16:15 12/30/18 00:57 Potassium Chloride/Dextrose/ Sod Cl 1,000 ml @ 75 mls/hr 1X ONCE IV 12/29/18 16:15 12/30/18 05:34 DC 12/29/18 21:23 Desvenlafaxine Succinate (Pristiq Er) 50 mg DAILY PO 12/30/18 09:00 12/30/18 09:03 Potassium Chloride/Dextrose/ Sod Cl 1,000 ml @ 125 mls/hr Q8H IV 12/29/18 20:45 12/30/18 07:40 Dextrose/Sodium Chloride 1,000 ml @ 150 mls/hr Q6H40M IV 12/30/18 01:45 12/30/18 01:49 Imaging: Imaging: CT A/P w/ IV contrast 12/29/18 Findings: There is some motion degradation. There is no significant abnormality of the limited visualized lung bases. There is again 2.5 cm of fat density associated with the left adrenal gland. There again has been cholecystectomy. No new focal abnormality is identified of the pancreas, liver, spleen. Both kidneys enhance, no significant hydronephrosis or perinephric fluid collection. Evaluation of bowel somewhat limited without oral contrast. Normal appendix is visualized. Bowel is not significantly dilated. There is no free fluid or free air. There is retained stool greater of the rectosigmoid colon and right colon. There are again several scattered small retroperitoneal and mesenteric nodes. IMPRESSION: 1. No significant acute abnormality is identified, no CT evidence of acute appendicitis. There is some retained stool greater in the region of rectosigmoid colon. 2. 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 PE: GEN: NAD HEENT: Atraumatic, PERRL LUNGS: CTAB HEART: RRR ABD: soft, round, NABS, LUQ discomfort, RLQ discomfort EXTREMITY: No edema SKIN: No rashes, no jaundice NEURO/PSYCH: A & O 3 A/P: A/P: Hypoglycemia, DM LUQ and RLQ pain, diarrhea - does have chronic abd pain, this is different GERD - on PPI, EGD 2014 H/o constipation - not an issue recently, CT as above w/ retained stool in rectosigmoid and right colon CRC screen, h/o polyps - UTD (2017) S/p cholecystectomy PHILLIPS NSAID use -- Await C Diff. Continue PPI. Try dicyclomine. Stop Amitiza, though wonder about overflow w/ retained stool on CT - will review w/ Dr. Khanna. ZELALEM TANNER December 30, 2018 13:51
[2018-12-30 15:05] VITALS: BP 131/77
[2018-12-30 19:00] VITALS: BP 123/62
[2018-12-30] MEDS: GABAPENTIN 300 MG CAPSULE. PO SCH (21:05)
[2018-12-30] MEDS: traZODone 100 MG TABLET. PO SCH (21:05)
[2018-12-30] MEDS: ALPRAZolam 0.25 MG TABLET PO PRN (21:05)
[2018-12-30 23:00] VITALS: BP 139/75
[2018-12-31] MEDS: oxyCODONE/APAP 5/325 1 TAB TABLET PO PRN ×4 (01:50→21:34)
[2018-12-31 03:00] VITALS: BP 148/58
[2018-12-31] MEDS: IV DEXTROSE 5% - 0.9 % NACL 1,000 ML IV SCH ×3 (04:25→16:58)
[2018-12-31 07:00] VITALS: BP 121/79
[2018-12-31] MEDS: INSULIN LISPRO 300 UNITS/3 ML INSULN.PEN. SQ SCH ×3 (08:00→16:43)
[2018-12-31] MEDS: PANTOPRAZOLE 40 MG TABLET.DR. PO SCH (09:12)
[2018-12-31] MEDS: DICYCLOMINE HCL 10 MG CAPSULE PO PRN ×3 (09:12→21:34)
[2018-12-31] MEDS: DESVENLAFAXINE 25 MG TAB.ER.24H PO SCH (09:13)
[2018-12-31] MEDS: POTASSIUM CL 20MEQ D5-0.45NACL 1,000 ML IV SCH ×3 (09:15→16:58)
--- NOTE | 2018-12-31 10:14 | PDOC ---
PROGRESS NOTES Chief Complaint Chief Complaint Symptomatic hypoglycemia - likely 2/2 GLP-[address] on D5 overnight. Monitor blood glucose closely Abdominal pain - with transaminitis and mild lipase elevation she is likely having side effect of semaglutide. I have recommended to stop using it HTN - cont home meds GERD - cont PPI Anxiety/depression - cont home meds DM2 - will need alternative therapy, SGLT-2, extended release metformin. Insulin therapy for now Obesity - counseled on weight loss History of Present Illness History of Present Illness Patient was seen and examined She is having some loose stools Discussed with RN Glucose 42 lower earlier Patient is on D5 Vitals Vitals Vital Signs Date Time Temp Pulse Resp B/P (MAP) Pulse Ox O2 Delivery O2 Flow Rate FiO2 12/31/18 07:00 97.8 81 18 121/79 (93) 94 Room Air 97.8 Physical Exam General: Alert, Oriented X3, Cooperative, No acute distress, mild distress Heart: Regular rate, Normal S1 Lungs: Clear Abdomen: Normal bowel sounds, Soft, No hepatosplenomegaly, No masses, Other (RLQ tender) Extremities: No clubbing, No cyanosis, No edema, Normal pulses, No tenderness/swelling Skin: No rashes, No breakdown, No significant lesion Labs LABS CT ABD PELV W/ IV CONTRST ONLY Indication: Right lower quadrant pain Technique: Postcontrast CT imaging was performed of the abdomen pelvis, multiplanar reconstruction images submitted. No oral contrast was given as per request. One or more of the following individualized dose reduction techniques were utilized for this examination: 1. Automated exposure control 2. Adjustment of the mA and/or kV according to patient size 3. Use of iterative reconstruction technique. Comparison: September 07, 2018 Findings: There is some motion degradation. There is no significant abnormality of the limited visualized lung bases. There is again 2.5 cm of fat density associated with the left adrenal gland. There again has been cholecystectomy. No new focal abnormality is identified of the pancreas, liver, spleen. Both kidneys enhance, no significant hydronephrosis or perinephric fluid collection. Evaluation of bowel somewhat limited without oral contrast. Normal appendix is visualized. Bowel is not significantly dilated. There is no free fluid or free air. There is retained stool greater of the rectosigmoid colon and right colon. There are again several scattered small retroperitoneal and mesenteric nodes. IMPRESSION: 1. No significant acute abnormality is identified, no CT evidence of acute appendicitis. There is some retained stool greater in the region of rectosigmoid colon. 2. 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 Electronically signed by: Bry Rooney MD (12/29/2018 2:32 PM) [id number] Laboratory Tests Test 12/30/18 13:58 12/30/18 17:59 12/30/18 22:26 12/31/18 01:01 Glucose (Fingerstick) 97 mg/dL (70-99) 161 mg/dL (70-99) 78 mg/dL (70-99) 42 mg/dL (70-99) Test 12/31/18 02:01 12/31/18 06:11 Glucose (Fingerstick) 73 mg/dL (70-99) 56 mg/dL (70-99) Assessment and Plan Assessmemt and Plan Problems Medical Problems: (1) Abdominal pain Status: Acute Comment Review of Relevant I have reviewed the following items sharda (where applicable) has been applied. Labs Laboratory Tests Test 12/29/18 12:25 12/29/18 12:28 12/29/18 12:40 12/29/18 13:04 Urine Color Yellow Urine Clarity Clear Urine pH 5.5 Urine Specific [place] <=1.005 Urine Protein Negative mg/dL (NEG-TRACE) Urine Glucose (UA) Negative mg/dL (NEG) Urine Ketones (Stick) Negative mg/dL (NEG) Urine Blood Large (NEG) Urine Nitrite Negative (NEG) Urine Bilirubin Negative (NEG) Urine Urobilinogen Dipstick 0.2 mg/dL (0.2 mg/dL) Urine Leukocyte Esterase Trace (NEG) Urine RBC 3-5 /HPF (0-2) Urine WBC 1-4 /HPF (0-4) Urine Squamous Epithelial Cells Occ /LPF Urine Bacteria Few /HPF (0-FEW) Glucose (Fingerstick) 39 mg/dL (70-99) 76 mg/dL (70-99) White Blood Count 13.2 x10^3/uL (4.0-11.0) Red Blood Count 5.19 x10^6/uL (3.50-5.40) Hemoglobin 14.9 g/dL (12.0-15.5) Hematocrit 44.5 % (36.0-47.0) Mean Corpuscular Volume 86 fL (79-100) Mean Corpuscular Hemoglobin 29 pg (25-35) Mean Corpuscular Hemoglobin Concent 34 g/dL (31-37) Red Cell Distribution Width 15.2 % (11.5-14.5) Platelet Count 302 x10^3/uL (140-400) Neutrophils (%) (Auto) 66 % (31-73) Lymphocytes (%) (Auto) 26 % (24-48) Monocytes (%) (Auto) 8 % (0-9) Eosinophils (%) (Auto) 1 % (0-3) Basophils (%) (Auto) 0 % (0-3) Neutrophils # (Auto) 8.7 x10^3uL (1.8-7.7) Lymphocytes # (Auto) 3.4 x10^3/uL (1.0-4.8) Monocytes # (Auto) 1.0 x10^3/uL (0.0-1.1) Eosinophils # (Auto) 0.1 x10^3/uL (0.0-0.7) Basophils # (Auto) 0.0 x10^3/uL (0.0-0.2) Sodium Level 140 mmol/L (136-145) Potassium Level 3.1 mmol/L (3.5-5.1) Chloride Level 104 mmol/L (98-107) Carbon Dioxide Level 29 mmol/L (21-32) Anion Gap 7 (6-14) Blood Urea Nitrogen 7 mg/dL (7-20) Creatinine 0.6 mg/dL (0.6-1.0) Estimated GFR (Cockcroft-Gault) 111.9 BUN/Creatinine Ratio 12 (6-20) Glucose Level 43 mg/dL (70-99) Calcium Level 10.2 mg/dL (8.5-10.1) Total Bilirubin 0.4 mg/dL (0.2-1.0) Aspartate Amino Transf (AST/SGOT) 44 U/L (15-37) Alanine Aminotransferase (ALT/SGPT) 88 U/L (14-59) Alkaline Phosphatase 93 U/L (46-116) Total Protein 7.6 g/dL (6.4-8.2) Albumin 3.9 g/dL (3.4-5.0) Albumin/Globulin Ratio 1.1 (1.0-1.7) Lipase 63 U/L (73-393) Test 12/29/18 13:35 12/29/18 14:33 12/29/18 15:28 12/29/18 16:14 Glucose (Fingerstick) 34 mg/dL (70-99) 74 mg/dL (70-99) 43 mg/dL (70-99) 76 mg/dL (70-99) Test 12/29/18 17:10 12/29/18 21:00 12/29/18 21:52 12/30/18 00:48 Glucose (Fingerstick) 56 mg/dL (70-99) 65 mg/dL (70-99) 95 mg/dL (70-99) 23 mg/dL (70-99) Test 12/30/18 01:02 12/30/18 01:06 12/30/18 01:45 12/30/18 02:41 Glucose (Fingerstick) 199 mg/dL (70-99) 171 mg/dL (70-99) 93 mg/dL (70-99) Glucose Level 122 mg/dL (70-99) Test 12/30/18 05:32 12/30/18 09:30 12/30/18 10:14 12/30/18 13:58 Glucose (Fingerstick) 69 mg/dL (70-99) 85 mg/dL (70-99) 97 mg/dL (70-99) Clostridium difficile Toxin B Gene Negative (Negative) Test 12/30/18 17:59 12/30/18 22:26 12/31/18 01:01 12/31/18 02:01 Glucose (Fingerstick) 161 mg/dL (70-99) 78 mg/dL (70-99) 42 mg/dL (70-99) 73 mg/dL (70-99) Test 12/31/18 06:11 Glucose (Fingerstick) 56 mg/dL (70-99) Laboratory Tests Test 12/30/18 13:58 12/30/18 17:59 12/30/18 22:26 12/31/18 01:01 Glucose (Fingerstick) 97 mg/dL (70-99) 161 mg/dL (70-99) 78 mg/dL (70-99) 42 mg/dL (70-99) Test 12/31/18 02:01 12/31/18 06:11 Glucose (Fingerstick) 73 mg/dL (70-99) 56 mg/dL (70-99) Medications Current Medications Dextrose/Sodium Chloride 1,000 ml @ 125 mls/hr 1X ONCE IV Last administered on 12/29/18at 13:48; Start 12/29/18 at 13:30; Stop 12/29/18 at 21:29; Status DC Morphine Sulfate (Morphine Sulfate) 4 mg PRN Q15MIN PRN IV/SQ PAIN GREATER THAN 3/10 Last administered on 12/29/18at 15:35; Start 12/29/18 at 13:30; Stop 12/30/18 at 13:29; Status DC Ondansetron HCl (Zofran) 4 mg 1X ONCE IV Last administered on 12/29/18at 13:44; Start 12/29/18 at 13:30; Stop 12/29/18 at 13:34; Status DC Dextrose (Dextrose 50%-Water Syringe) 25 gm 1X ONCE IV Last administered on 12/29/18at 13:43; Start 12/29/18 at 13:45; Stop 12/29/18 at 13:46; Status DC Iohexol (Omnipaque 300 Mg/ml) 75 ml 1X ONCE IV Last administered on 12/29/18at 14:14; Start 12/29/18 at 13:45; Stop 12/29/18 at 13:46; Status DC Info (CONTRAST GIVEN -- Rx MONITORING) 1 each PRN DAILY PRN MC SEE COMMENTS; Start 12/29/18 at 13:45; Stop 12/31/18 at 13:44 Morphine Sulfate (Morphine Sulfate) 4 mg 1X ONCE IV ; Start 12/29/18 at 15:15; Stop 12/29/18 at 15:16; Status DC Alprazolam (Xanax) 0.25 mg PRN DAILY PRN PO ANXIETY Last administered on 12/30/18at 21:05; Start 12/29/18 at 15:45 Gabapentin (Neurontin) 300 mg HS PO Last administered on 12/30/18at 21:05; Start 12/29/18 at 21:00 Lubiprostone (Amitiza) 8 mcg DAILY PO ; Start 12/29/18 at 17:00; Stop 12/30/18 at 14:23; Status DC Oxycodone/ Acetaminophen (Percocet 5/325) 1 tab PRN Q6HRS PRN PO PAIN Last administered on 12/31/18 09:14; Start 12/29/18 at 15:45 Trazodone HCl (Desyrel) 100 mg QHS PO Last administered on 12/30/18 21:05; Start 12/29/18 at 21:00 Pantoprazole Sodium (Protonix) 40 mg DAILYAC PO Last administered on 12/31/18 09:12; Start 12/30/18 at 07:30 Dextrose (Dextrose 50%-Water Syringe) 12.5 gm 1X ONCE IV Last administered on 12/29/18at 15:39; Start 12/29/18 at 15:45; Stop 12/29/18 at 15:46; Status DC Insulin Human Lispro (HumaLOG) 0-5 UNITS TIDWMEALS SQ ; Start 12/29/18 at 17:00 Dextrose (Dextrose 50%-Water Syringe) 12.5 gm PRN Q15MIN PRN IV SEE COMMENTS Last administered on 12/30/18at 00:57; Start 12/29/18 at 16:15 Potassium Chloride/Dextrose/ Sod Cl 1,000 ml @ 75 mls/hr 1X ONCE IV Last administered on 12/29/18 21:23; Start 12/29/18 at 16:15; Stop 12/30/18 at 05:34; Status DC Desvenlafaxine Succinate (Pristiq Er) 50 mg DAILY PO Last administered on 12/31/18 09:13; Start 12/30/18 at 09:00 Potassium Chloride/Dextrose/ Sod Cl 1,000 ml @ 125 mls/hr Q8H IV Last administered on 12/31/18 09:15; Start 12/29/18 at 20:45 Dextrose/Sodium Chloride 1,000 ml @ 150 mls/hr Q6H40M IV Last administered on 12/30/18at 01:49; Start 12/30/18 at 01:45 Dicyclomine HCl (Bentyl) 10 mg QID PRN PO abd pain Last administered on 12/31/18 09:12; Start 12/30/18 at 14:30 Active Scripts Active Reported Pristiq Er (Desvenlafaxine Succinate) 50 Mg Tab.er.24h 50 Mg PO DAILY Percocet 5-325 Mg Tablet (Oxycodone/Acetaminophen) 1 Each Tablet 1-2 Tab PO PRN Q4-6HRS PRN Black Cohosh 540 Mg Capsule 540 Mg PO DAILY Amitiza (Lubiprostone) 8 Mcg Capsule 8 Mcg PO DAILY Tresiba Flextouch U-100 (Insulin Degludec) 100 Unit/1 Ml Insuln.pen 30 Unit SQ HS Humalog (Insulin Lispro) 100 Unit/1 Ml Cartridge 12 Unit SQ PRN BFRMEAL PRN Pristiq Er (Desvenlafaxine Succinate) 50 Mg Tab.er.24h 1 Tab PO DAILY Alprazolam 0.5 Mg Tablet 1 Mg PO PRN TID PRN Trazodone Hcl 100 Mg Tablet 1 Tab PO QHS Gabapentin (Gabapentin) 300 Mg Capsule 300 Mg PO HS Protonix (Pantoprazole Sodium) 20 Mg Tablet.dr 40 Mg PO DAILY Vitals/I & O Vital Sign - Last 24 Hours 12/30/18 12/30/18 12/30/18 12/30/18 11:08 12:53 15:05 19:00 Temp 97.5 98.3 98.3 97.5 98.3 98.3 Pulse 72 84 76 Resp 16 18 17 B/P (MAP) 104/59 (74) 131/77 (95) 123/62 (82) Pulse Ox 97 97 96 O2 Delivery Room Air Room Air Room Air Room Air 12/30/18 12/30/18 12/30/18 12/31/18 19:49 20:00 23:00 01:50 Temp 98.3 98.3 Pulse 77 Resp 17 B/P (MAP) 139/75 (96) Pulse Ox 96 O2 Delivery Room Air Room Air Room Air Room Air 12/31/18 12/31/18 12/31/18 02:50 03:00 07:00 Temp 98.3 97.8 98.3 97.8 Pulse 80 81 Resp 17 18 B/P (MAP) 148/58 (88) 121/79 (93) Pulse Ox 95 94 O2 Delivery Room Air Room Air Room Air Intake and Output 12/30/18 12/30/18 12/31/18 15:00 23:00 07:00 Intake Total 875 ml 1000 ml 150 ml Balance 875 ml 1000 ml 150 ml SOFIA ASKEW MD December 31, 2018 10:14
[2018-12-31 11:00] VITALS: BP 122/76
--- NOTE | 2018-12-31 14:23 | PDOC ---
G I PROGRESS NOTE Reason for Follow-up Diarrhea Subjective Tolerating PO/no further diarrhea Physical Exam Lungs clear CV S1 S2 ABD +BS, soft, nontender Review of Relevant I have reviewed the following items sharda (where applicable) has been applied. Labs Laboratory Tests Test 12/29/18 14:33 12/29/18 15:28 12/29/18 16:14 12/29/18 17:10 Glucose (Fingerstick) 74 mg/dL (70-99) 43 mg/dL (70-99) 76 mg/dL (70-99) 56 mg/dL (70-99) Test 12/29/18 21:00 12/29/18 21:52 12/30/18 00:48 12/30/18 01:02 Glucose (Fingerstick) 65 mg/dL (70-99) 95 mg/dL (70-99) 23 mg/dL (70-99) 199 mg/dL (70-99) Test 12/30/18 01:06 12/30/18 01:45 12/30/18 02:41 12/30/18 05:32 Glucose (Fingerstick) 171 mg/dL (70-99) 93 mg/dL (70-99) 69 mg/dL (70-99) Glucose Level 122 mg/dL (70-99) Test 12/30/18 09:30 12/30/18 10:14 12/30/18 13:58 12/30/18 17:59 Clostridium difficile Toxin B Gene Negative (Negative) Glucose (Fingerstick) 85 mg/dL (70-99) 97 mg/dL (70-99) 161 mg/dL (70-99) Test 12/30/18 22:26 12/31/18 01:01 12/31/18 02:01 12/31/18 06:11 Glucose (Fingerstick) 78 mg/dL (70-99) 42 mg/dL (70-99) 73 mg/dL (70-99) 56 mg/dL (70-99) Test 12/31/18 10:17 12/31/18 13:46 Glucose (Fingerstick) 119 mg/dL (70-99) 153 mg/dL (70-99) Laboratory Tests Test 12/30/18 17:59 12/30/18 22:26 12/31/18 01:01 12/31/18 02:01 Glucose (Fingerstick) 161 mg/dL (70-99) 78 mg/dL (70-99) 42 mg/dL (70-99) 73 mg/dL (70-99) Test 12/31/18 06:11 12/31/18 10:17 12/31/18 13:46 Glucose (Fingerstick) 56 mg/dL (70-99) 119 mg/dL (70-99) 153 mg/dL (70-99) Microbiology 12/29/18 Urine Culture - Final, Complete 12/29/18 Urine Culture Result 1 (TRINITY) - Final, Complete Medications Current Medications Dextrose/Sodium Chloride 1,000 ml @ 125 mls/hr 1X ONCE IV Last administered on 12/29/18at 13:48; Start 12/29/18 at 13:30; Stop 12/29/18 at 21:29; Status DC Morphine Sulfate (Morphine Sulfate) 4 mg PRN Q15MIN PRN IV/SQ PAIN GREATER THAN 3/10 Last administered on 12/29/18at 15:35; Start 12/29/18 at 13:30; Stop 12/30/18 at 13:29; Status DC Ondansetron HCl (Zofran) 4 mg 1X ONCE IV Last administered on 12/29/18at 13:44; Start 12/29/18 at 13:30; Stop 12/29/18 at 13:34; Status DC Dextrose (Dextrose 50%-Water Syringe) 25 gm 1X ONCE IV Last administered on 12/29/18at 13:43; Start 12/29/18 at 13:45; Stop 12/29/18 at 13:46; Status DC Iohexol (Omnipaque 300 Mg/ml) 75 ml 1X ONCE IV Last administered on 12/29/18at 14:14; Start 12/29/18 at 13:45; Stop 12/29/18 at 13:46; Status DC Info (CONTRAST GIVEN -- Rx MONITORING) 1 each PRN DAILY PRN MC SEE COMMENTS; Start 12/29/18 at 13:45; Stop 12/31/18 at 13:44; Status DC Morphine Sulfate (Morphine Sulfate) 4 mg 1X ONCE IV ; Start 12/29/18 at 15:15; Stop 12/29/18 at 15:16; Status DC Alprazolam (Xanax) 0.25 mg PRN DAILY PRN PO ANXIETY Last administered on 12/30/18 21:05; Start 12/29/18 at 15:45 Gabapentin (Neurontin) 300 mg HS PO Last administered on 12/30/18 21:05; Start 12/29/18 at 21:00 Lubiprostone (Amitiza) 8 mcg DAILY PO ; Start 12/29/18 at 17:00; Stop 12/30/18 at 14:23; Status DC Oxycodone/ Acetaminophen (Percocet 5/325) 1 tab PRN Q6HRS PRN PO PAIN Last administered on 12/31/18 09:14; Start 12/29/18 at 15:45 Trazodone HCl (Desyrel) 100 mg QHS PO Last administered on 12/30/18 21:05; Start 12/29/18 at 21:00 Pantoprazole Sodium (Protonix) 40 mg DAILYAC PO Last administered on 12/31/18 09:12; Start 12/30/18 at 07:30 Dextrose (Dextrose 50%-Water Syringe) 12.5 gm 1X ONCE IV Last administered on 12/29/18at 15:39; Start 12/29/18 at 15:45; Stop 12/29/18 at 15:46; Status DC Insulin Human Lispro (HumaLOG) 0-5 UNITS TIDWMEALS SQ ; Start 12/29/18 at 17:00 Dextrose (Dextrose 50%-Water Syringe) 12.5 gm PRN Q15MIN PRN IV SEE COMMENTS Last administered on 12/30/18at 00:57; Start 12/29/18 at 16:15 Potassium Chloride/Dextrose/ Sod Cl 1,000 ml @ 75 mls/hr 1X ONCE IV Last administered on 12/29/18 21:23; Start 12/29/18 at 16:15; Stop 12/30/18 at 05:34; Status DC Desvenlafaxine Succinate (Pristiq Er) 50 mg DAILY PO Last administered on 12/31/18 09:13; Start 12/30/18 at 09:00 Potassium Chloride/Dextrose/ Sod Cl 1,000 ml @ 125 mls/hr Q8H IV Last admi nistered on 12/31/18 09:15; Start 12/29/18 at 20:45 Dextrose/Sodium Chloride 1,000 ml @ 150 mls/hr Q6H40M IV Last administered on 12/30/18at 01:49; Start 12/30/18 at 01:45 Dicyclomine HCl (Bentyl) 10 mg QID PRN PO abd pain Last administered on 12/31/18at 09:12; Start 12/30/18 at 14:30 Active Scripts Active Reported Pristiq Er (Desvenlafaxine Succinate) 50 Mg Tab.er.24h 50 Mg PO DAILY Percocet 5-325 Mg Tablet (Oxycodone/Acetaminophen) 1 Each Tablet 1-2 Tab PO PRN Q4-6HRS PRN Black Cohosh 540 Mg Capsule 540 Mg PO DAILY Amitiza (Lubiprostone) 8 Mcg Capsule 8 Mcg PO DAILY Tresiba Flextouch U-100 (Insulin Degludec) 100 Unit/1 Ml Insuln.pen 30 Unit SQ HS Humalog (Insulin Lispro) 100 Unit/1 Ml Cartridge 12 Unit SQ PRN BFRMEAL PRN Pristiq Er (Desvenlafaxine Succinate) 50 Mg Tab.er.24h 1 Tab PO DAILY Alprazolam 0.5 Mg Tablet 1 Mg PO PRN TID PRN Trazodone Hcl 100 Mg Tablet 1 Tab PO QHS Gabapentin (Gabapentin) 300 Mg Capsule 300 Mg PO HS Protonix (Pantoprazole Sodium) 20 Mg Tablet.dr 40 Mg PO DAILY Vitals/I & O Vital Sign - Last 24 Hours 12/30/18 12/30/18 12/30/18 12/30/18 15:05 19:00 19:49 20:00 Temp 98.3 98.3 98.3 98.3 Pulse 84 76 Resp 18 17 B/P (MAP) 131/77 (95) 123/62 (82) Pulse Ox 97 96 O2 Delivery Room Air Room Air Room Air Room Air 12/30/18 12/31/18 12/31/18 12/31/18 23:00 01:50 03:00 07:00 Temp 98.3 98.3 97.8 98.3 98.3 97.8 Pulse 77 80 81 Resp 17 17 18 B/P (MAP) 139/75 (96) 148/58 (88) 121/79 (93) Pulse Ox 96 95 94 O2 Delivery Room Air Room Air Room Air Room Air 12/31/18 12/31/18 12/31/18 12/31/18 08:00 10:33 10:56 11:00 Temp 97.2 97.2 Pulse 75 Resp 18 B/P (MAP) 122/76 (91) Pulse Ox 94 97 O2 Delivery Room Air Room Air Room Air Room Air Intake and Output 12/30/18 12/30/18 12/31/18 15:00 23:00 07:00 Intake Total 875 ml 1000 ml 150 ml Balance 875 ml 1000 ml 150 ml Problem List Problems Medical Problems: (1) Abdominal pain Status: Acute Assessment Diarrhea- with abd pain, likely drug side effec with DM medication, improving off, stable for release from GI standpoint with alternative DM control as o/p TIKI BURNS MD December 31, 2018 14:23
[2018-12-31 15:00] VITALS: BP 113/68
[2018-12-31 19:00] VITALS: BP 124/74
[2018-12-31] MEDS: traZODone 100 MG TABLET. PO SCH (20:26)
[2018-12-31] MEDS: GABAPENTIN 300 MG CAPSULE. PO SCH (20:26)
[2018-12-31] MEDS: SIMETHICONE 80 MG TAB.CHEW PO PRN (20:26)
[2018-12-31 23:00] VITALS: BP 100/62
[2019-01-01] MEDS: IV DEXTROSE 5% - 0.9 % NACL 1,000 ML IV SCH (00:25)
[2019-01-01 03:00] VITALS: BP 106/59
[2019-01-01] MEDS: POTASSIUM CL 20MEQ D5-0.45NACL 1,000 ML IV SCH (03:06)
[2019-01-01 04:32] LABS: BASO # 0.1 x10^3/uL (0.0-0.2); BASO % 1 % (0-3); EOS # 0.2 x10^3/uL (0.0-0.7); EOS % 2 % (0-3); HEMATOCRIT 41.1 % (36.0-47.0); HEMOGLOBIN 13.7 g/dL (12.0-15.5); LYMPH % 27 % (24-48); MEAN CORPUSCULAR HEMOGLOBIN 29 pg (25-35); MEAN CORPUSCULAR HGB CONC 33 g/dL (31-37); MEAN CORPUSCULAR VOLUME 87 fL (79-100); MONO # 0.5 x10^3/uL (0.0-1.1); MONO % 6 % (0-9); NEUT # 4.8 x10^3uL (1.8-7.7); NEUT % 65 % (31-73); PLATELET COUNT 212 x10^3/uL (140-400); RED BLOOD COUNT 4.74 x10^6/uL (3.50-5.40); RED CELL DISTRIBUTION WIDTH 15.7 % (11.5-14.5); WHITE BLOOD COUNT 7.5 x10^3/uL (4.0-11.0)
[2019-01-01 04:46] LABS: CREATININE 0.7 mg/dL (0.6-1.0); GFR 93.6; POTASSIUM 4.1 mmol/L (3.5-5.1)
[2019-01-01] MEDS: oxyCODONE/APAP 5/325 1 TAB TABLET PO PRN ×2 (05:46→12:30)
[2019-01-01] MEDS: DICYCLOMINE HCL 10 MG CAPSULE PO PRN ×2 (05:46→12:30)
[2019-01-01 07:00] VITALS: BP 99/60
[2019-01-01] MEDS: INSULIN LISPRO 300 UNITS/3 ML INSULN.PEN. SQ SCH ×3 (08:00→16:20)
[2019-01-01] MEDS: DESVENLAFAXINE 25 MG TAB.ER.24H PO SCH (08:25)
[2019-01-01] MEDS: PANTOPRAZOLE 40 MG TABLET.DR. PO SCH (08:25)
--- NOTE | 2019-01-01 10:53 | NUR ---
SW following pt for anticipated dc needs. Chart reviewed. Pt lives at home alone. Pt has hx of SI but no concerns at this time. No dc/SW needs noted at this time
[2019-01-01 11:00] VITALS: BP 103/71
[2019-01-01] MEDS: SIMETHICONE 80 MG TAB.CHEW PO PRN (12:32)
--- NOTE | 2019-01-01 14:31 | PDOC ---
PROGRESS NOTES Chief Complaint Chief Complaint Symptomatic hypoglycemia - likely 2/2 GLP-[address] on D5 overnight. Monitor blood glucose closely Abdominal pain - with transaminitis and mild lipase elevation she is likely having side effect of semaglutide. I have recommended to stop using it HTN - cont home meds GERD - cont PPI Anxiety/depression - cont home meds DM2 - will need alternative therapy, SGLT-2, extended release metformin. Insulin therapy for now Obesity - counseled on weight loss History of Present Illness History of Present Illness plan to DC if blood sugar ok normal stools Patient is on D5, will stop and monitor for 7 hours before dc patient has a skin glucose monitor, that seems pretty accurate from our point of care Vitals Vitals Vital Signs Date Time Temp Pulse Resp B/P (MAP) Pulse Ox O2 Delivery O2 Flow Rate FiO2 01/01/19 13:19 Room Air 01/01/19 11:00 98.3 94 18 103/71 (82) 97 98.3 Physical Exam General: Alert, Oriented X3, Cooperative, No acute distress, mild distress Heart: Regular rate, Normal S1 Lungs: Clear Abdomen: Normal bowel sounds, Soft, No hepatosplenomegaly, No masses, Other (RLQ tender) Extremities: No clubbing, No cyanosis, No edema, Normal pulses, No tenderness/swelling Skin: No rashes, No breakdown, No significant lesion Labs LABS Laboratory Tests Test 12/31/18 15:07 12/31/18 18:10 12/31/18 20:18 12/31/18 21:59 Glucose (Fingerstick) 80 mg/dL (70-99) 194 mg/dL (70-99) 229 mg/dL (70-99) 203 mg/dL (70-99) Test 01/01/19 02:39 01/01/19 04:00 01/01/19 06:20 01/01/19 10:09 Glucose (Fingerstick) 129 mg/dL (70-99) 127 mg/dL (70-99) 93 mg/dL (70-99) White Blood Count 7.5 x10^3/uL (4.0-11.0) Red Blood Count 4.74 x10^6/uL (3.50-5.40) Hemoglobin 13.7 g/dL (12.0-15.5) Hematocrit 41.1 % (36.0-47.0) Mean Corpuscular Volume 87 fL (79-100) Mean Corpuscular Hemoglobin 29 pg (25-35) Mean Corpuscular Hemoglobin Concent 33 g/dL (31-37) Red Cell Distribution Width 15.7 % (11.5-14.5) Platelet Count 212 x10^3/uL (140-400) Neutrophils (%) (Auto) 65 % (31-73) Lymphocytes (%) (Auto) 27 % (24-48) Monocytes (%) (Auto) 6 % (0-9) Eosinophils (%) (Auto) 2 % (0-3) Basophils (%) (Auto) 1 % (0-3) Neutrophils # (Auto) 4.8 x10^3uL (1.8-7.7) Lymphocytes # (Auto) 2.0 x10^3/uL (1.0-4.8) Monocytes # (Auto) 0.5 x10^3/uL (0.0-1.1) Eosinophils # (Auto) 0.2 x10^3/uL (0.0-0.7) Basophils # (Auto) 0.1 x10^3/uL (0.0-0.2) Sodium Level 140 mmol/L (136-145) Potassium Level 4.1 mmol/L (3.5-5.1) Chloride Level 104 mmol/L (98-107) Carbon Dioxide Level 29 mmol/L (21-32) Anion Gap 7 (6-14) Blood Urea Nitrogen 9 mg/dL (7-20) Creatinine 0.7 mg/dL (0.6-1.0) Estimated GFR (Cockcroft-Gault) 93.6 Glucose Level 197 mg/dL (70-99) Calcium Level 9.0 mg/dL (8.5-10.1) Assessment and Plan Assessmemt and Plan Problems Medical Problems: (1) Abdominal pain Status: Acute Comment Review of Relevant I have reviewed the following items sharda (where applicable) has been applied. Labs Laboratory Tests Test 12/30/18 17:59 12/30/18 22:26 12/31/18 01:01 12/31/18 02:01 Glucose (Fingerstick) 161 mg/dL (70-99) 78 mg/dL (70-99) 42 mg/dL (70-99) 73 mg/dL (70-99) Test 12/31/18 06:11 12/31/18 10:17 12/31/18 13:46 12/31/18 15:07 Glucose (Fingerstick) 56 mg/dL (70-99) 119 mg/dL (70-99) 153 mg/dL (70-99) 80 mg/dL (70-99) Test 12/31/18 18:10 12/31/18 20:18 12/31/18 21:59 01/01/19 02:39 Glucose (Fingerstick) 194 mg/dL (70-99) 229 mg/dL (70-99) 203 mg/dL (70-99) 129 mg/dL (70-99) Test 01/01/19 04:00 01/01/19 06:20 01/01/19 10:09 White Blood Count 7.5 x10^3/uL (4.0-11.0) Red Blood Count 4.74 x10^6/uL (3.50-5.40) Hemoglobin 13.7 g/dL (12.0-15.5) Hematocrit 41.1 % (36.0-47.0) Mean Corpuscular Volume 87 fL (79-100) Mean Corpuscular Hemoglobin 29 pg (25-35) Mean Corpuscular Hemoglobin Concent 33 g/dL (31-37) Red Cell Distribution Width 15.7 % (11.5-14.5) Platelet Count 212 x10^3/uL (140-400) Neutrophils (%) (Auto) 65 % (31-73) Lymphocytes (%) (Auto) 27 % (24-48) Monocytes (%) (Auto) 6 % (0-9) Eosinophils (%) (Auto) 2 % (0-3) Basophils (%) (Auto) 1 % (0-3) Neutrophils # (Auto) 4.8 x10^3uL (1.8-7.7) Lymphocytes # (Auto) 2.0 x10^3/uL (1.0-4.8) Monocytes # (Auto) 0.5 x10^3/uL (0.0-1.1) Eosinophils # (Auto) 0.2 x10^3/uL (0.0-0.7) Basophils # (Auto) 0.1 x10^3/uL (0.0-0.2) Sodium Level 140 mmol/L (136-145) Potassium Level 4.1 mmol/L (3.5-5.1) Chloride Level 104 mmol/L (98-107) Carbon Dioxide Level 29 mmol/L (21-32) Anion Gap 7 (6-14) Blood Urea Nitrogen 9 mg/dL (7-20) Creatinine 0.7 mg/dL (0.6-1.0) Estimated GFR (Cockcroft-Gault) 93.6 Glucose Level 197 mg/dL (70-99) Calcium Level 9.0 mg/dL (8.5-10.1) Glucose (Fingerstick) 127 mg/dL (70-99) 93 mg/dL (70-99) Laboratory Tests Test 12/31/18 15:07 12/31/18 18:10 12/31/18 20:18 12/31/18 21:59 Glucose (Fingerstick) 80 mg/dL (70-99) 194 mg/dL (70-99) 229 mg/dL (70-99) 203 mg/dL (70-99) Test 01/01/19 02:39 01/01/19 04:00 01/01/19 06:20 01/01/19 10:09 Glucose (Fingerstick) 129 mg/dL (70-99) 127 mg/dL (70-99) 93 mg/dL (70-99) White Blood Count 7.5 x10^3/uL (4.0-11.0) Red Blood Count 4.74 x10^6/uL (3.50-5.40) Hemoglobin 13.7 g/dL (12.0-15.5) Hematocrit 41.1 % (36.0-47.0) Mean Corpuscular Volume 87 fL (79-100) Mean Corpuscular Hemoglobin 29 pg (25-35) Mean Corpuscular Hemoglobin Concent 33 g/dL (31-37) Red Cell Distribution Width 15.7 % (11.5-14.5) Platelet Count 212 x10^3/uL (140-400) Neutrophils (%) (Auto) 65 % (31-73) Lymphocytes (%) (Auto) 27 % (24-48) Monocytes (%) (Auto) 6 % (0-9) Eosinophils (%) (Auto) 2 % (0-3) Basophils (%) (Auto) 1 % (0-3) Neutrophils # (Auto) 4.8 x10^3uL (1.8-7.7) Lymphocytes # (Auto) 2.0 x10^3/uL (1.0-4.8) Monocytes # (Auto) 0.5 x10^3/uL (0.0-1.1) Eosinophils # (Auto) 0.2 x10^3/uL (0.0-0.7) Basophils # (Auto) 0.1 x10^3/uL (0.0-0.2) Sodium Level 140 mmol/L (136-145) Potassium Level 4.1 mmol/L (3.5-5.1) Chloride Level 104 mmol/L (98-107) Carbon Dioxide Level 29 mmol/L (21-32) Anion Gap 7 (6-14) Blood Urea Nitrogen 9 mg/dL (7-20) Creatinine 0.7 mg/dL (0.6-1.0) Estimated GFR (Cockcroft-Gault) 93.6 Glucose Level 197 mg/dL (70-99) Calcium Level 9.0 mg/dL (8.5-10.1) Microbiology 12/29/18 Urine Culture - Final, Complete 12/29/18 Urine Culture Result 1 ([facility]INITY) - Final, Complete Medications Current Medications Dextrose/Sodium Chloride 1,000 ml @ 125 mls/hr 1X ONCE IV Last administered on 12/29/18at 13:48; Start 12/29/18 at 13:30; Stop 12/29/18 at 21:29; Status DC Morphine Sulfate (Morphine Sulfate) 4 mg PRN Q15MIN PRN IV/SQ PAIN GREATER THAN 3/10 Last administered on 12/29/18at 15:35; Start 12/29/18 at 13:30; Stop 12/30/18 at 13:29; Status DC Ondansetron HCl (Zofran) 4 mg 1X ONCE IV Last administered on 12/29/18at 13:44; Start 12/29/18 at 13:30; Stop 12/29/18 at 13:34; Status DC Dextrose (Dextrose 50%-Water Syringe) 25 gm 1X ONCE IV Last administered on 12/29/18at 13:43; Start 12/29/18 at 13:45; Stop 12/29/18 at 13:46; Status DC Iohexol (Omnipaque 300 Mg/ml) 75 ml 1X ONCE IV Last administered on 12/29/18at 14:14; Start 12/29/18 at 13:45; Stop 12/29/18 at 13:46; Status DC Info (CONTRAST GIVEN -- Rx MONITORING) 1 each PRN DAILY PRN MC SEE COMMENTS; Start 12/29/18 at 13:45; Stop 12/31/18 at 13:44; Status DC Morphine Sulfate (Morphine Sulfate) 4 mg 1X ONCE IV ; Start 12/29/18 at 15:15; Stop 12/29/18 at 15:16; Status DC Alprazolam (Xanax) 0.25 mg PRN DAILY PRN PO ANXIETY Last administered on 12/30/18at 21:05; Start 12/29/18 at 15:45 Gabapentin (Neurontin) 300 mg HS PO Last administered on 12/31/18at 20:26; Start 12/29/18 at 21:00 Lubiprostone (Amitiza) 8 mcg DAILY PO ; Start 12/29/18 at 17:00; Stop 12/30/18 at 14:23; Status DC Oxycodone/ Acetaminophen (Percocet 5/325) 1 tab PRN Q6HRS PRN PO PAIN Last administered on 01/01/19at 12:30; Start 12/29/18 at 15:45 Trazodone HCl (Desyrel) 100 mg QHS PO Last administered on 12/31/18at 20:26; Start 12/29/18 at 21:00 Pantoprazole Sodium (Protonix) 40 mg DAILYAC PO Last administered on 01/01/19at 08:25; Start 12/30/18 at 07:30 Dextrose (Dextrose 50%-Water Syringe) 12.5 gm 1X ONCE IV Last administered on 12/29/18at 15:39; Start 12/29/18 at 15:45; Stop 12/29/18 at 15:46; Status DC Insulin Human Lispro (HumaLOG) 0-5 UNITS TIDWMEALS SQ ; Start 12/29/18 at 17:00 Dextrose (Dextrose 50%-Water Syringe) 12.5 gm PRN Q15MIN PRN IV SEE COMMENTS Last administered on 12/30/18at 00:57; Start 12/29/18 at 16:15 Potassium Chloride/Dextrose/ Sod Cl 1,000 ml @ 75 mls/hr 1X ONCE IV Last administered on 12/29/18at 21:23; Start 12/29/18 at 16:15; Stop 12/30/18 at 05:34; Status DC Desvenlafaxine Succinate (Pristiq Er) 50 mg DAILY PO Last administered on 01/01/19at 08:25; Start 12/30/18 at 09:00 Potassium Chloride/Dextrose/ Sod Cl 1,000 ml @ 125 mls/hr Q8H IV Last administered on 01/01/19at 03:06; Start 12/29/18 at 20:45; Stop 01/01/19 at 11:02; Status DC Dextrose/Sodium Chloride 1,000 ml @ 150 mls/hr Q6H40M IV Last administered on 12/30/18at 01:49; Start 12/30/18 at 01:45; Stop 01/01/19 at 11:02; Status DC Dicyclomine HCl (Bentyl) 10 mg QID PRN PO abd pain Last administered on 01/01/19at 12:30; Start 12/30/18 at 14:30 Simethicone (Gas-X) 80 mg PRN Q3HRS PRN PO GAS / BLOATING Last administered on 01/01/19at 12:32; Start 12/31/18 at 19:30 Active Scripts Active Reported Pristiq Er (Desvenlafaxine Succinate) 50 Mg Tab.er.24h 50 Mg PO DAILY Percocet 5-325 Mg Tablet (Oxycodone/Acetaminophen) 1 Each Tablet 1-2 Tab PO PRN Q4-6HRS PRN Black Cohosh 540 Mg Capsule 540 Mg PO DAILY Amitiza (Lubiprostone) 8 Mcg Capsule 8 Mcg PO DAILY Tresiba Flextouch U-100 (Insulin Degludec) 100 Unit/1 Ml Insuln.pen 30 Unit SQ HS Humalog (Insulin Lispro) 100 Unit/1 Ml Cartridge 12 Unit SQ PRN BFRMEAL PRN Pristiq Er (Desvenlafaxine Succinate) 50 Mg Tab.er.24h 1 Tab PO DAILY Alprazolam 0.5 Mg Tablet 1 Mg PO PRN TID PRN Trazodone Hcl 100 Mg Tablet 1 Tab PO QHS Gabapentin (Gabapentin) 300 Mg Capsule 300 Mg PO HS Protonix (Pantoprazole Sodium) 20 Mg Tablet.dr 40 Mg PO DAILY Vitals/I & O Vital Sign - Last 24 Hours 12/31/18 12/31/18 12/31/18 12/31/18 15:00 16:43 19:00 20:00 Temp 97.8 96.8 97.8 96.8 Pulse 94 97 Resp 18 17 B/P (MAP) 113/68 (83) 124/74 (91) Pulse Ox 99 99 94 O2 Delivery Room Air Room Air Room Air 12/31/18 12/31/18 01/01/19 01/01/19 21:34 23:00 03:00 05:46 Temp 97.7 97.6 97.7 97.6 Pulse 88 93 Resp 16 18 B/P (MAP) 100/62 (75) 106/59 (75) Pulse Ox 95 93 O2 Delivery Room Air Room Air Room Air Room Air 01/01/19 01/01/19 01/01/19 01/01/19 07:00 08:00 11:00 12:30 Temp 97.6 98.3 97.6 98.3 Pulse 94 94 Resp 16 18 B/P (MAP) 99/60 (73) 103/71 (82) Pulse Ox 96 97 O2 Delivery Room Air Room Air Room Air Room Air 01/01/19 13:19 O2 Delivery Room Air Intake and Output 12/31/18 12/31/18 01/01/19 15:00 23:00 07:00 Intake Total 240 ml 1260 ml 410 ml Balance 240 ml 1260 ml 410 ml ALEX ROLAND MD January 01, 2019 14:31
--- NOTE | 2019-01-01 14:33 | PDOC3 ---
Discharge Summary Visit Information Date of Admission: December 29, 2018 Date of Discharge: January 01, 2019 Final Diagnosis Symptomatic hypoglycemia - likely 2/2 GLP-[address] on D5 overnight. Monitor blood glucose closely Abdominal pain - with transaminitis and mild lipase elevation she is likely having side effect of semaglutide. I have recommended to stop using it HTN - cont home meds GERD - cont PPI Anxiety/depression - cont home meds DM2 - will need alternative therapy, Obesity - BMI 32, counseled on weight loss Problems Medical Problems: (1) Abdominal pain Status: Acute Brief Hospital Course Allergies Allergies Coded Allergies Type Severity Reaction Last Updated Verified levofloxacin Allergy Intermediate Rash 09/27/18 Yes vancomycin Allergy Intermediate Rash 09/27/18 Yes Vital Signs Vital Signs Date Time Temp Pulse Resp B/P (MAP) Pulse Ox O2 Delivery O2 Flow Rate FiO2 01/01/19 13:19 Room Air 01/01/19 11:00 98.3 94 18 103/71 (82) 97 98.3 Lab Results Laboratory Tests Test 12/30/18 17:59 12/30/18 22:26 12/31/18 01:01 12/31/18 02:01 Glucose (Fingerstick) 161 mg/dL (70-99) 78 mg/dL (70-99) 42 mg/dL (70-99) 73 mg/dL (70-99) Test 12/31/18 06:11 12/31/18 10:17 12/31/18 13:46 12/31/18 15:07 Glucose (Fingerstick) 56 mg/dL (70-99) 119 mg/dL (70-99) 153 mg/dL (70-99) 80 mg/dL (70-99) Test 12/31/18 18:10 12/31/18 20:18 12/31/18 21:59 01/01/19 02:39 Glucose (Fingerstick) 194 mg/dL (70-99) 229 mg/dL (70-99) 203 mg/dL (70-99) 129 mg/dL (70-99) Test 01/01/19 04:00 01/01/19 06:20 01/01/19 10:09 White Blood Count 7.5 x10^3/uL (4.0-11.0) Red Blood Count 4.74 x10^6/uL (3.50-5.40) Hemoglobin 13.7 g/dL (12.0-15.5) Hematocrit 41.1 % (36.0-47.0) Mean Corpuscular Volume 87 fL (79-100) Mean Corpuscular Hemoglobin 29 pg (25-35) Mean Corpuscular Hemoglobin Concent 33 g/dL (31-37) Red Cell Distribution Width 15.7 % (11.5-14.5) Platelet Count 212 x10^3/uL (140-400) Neutrophils (%) (Auto) 65 % (31-73) Lymphocytes (%) (Auto) 27 % (24-48) Monocytes (%) (Auto) 6 % (0-9) Eosinophils (%) (Auto) 2 % (0-3) Basophils (%) (Auto) 1 % (0-3) Neutrophils # (Auto) 4.8 x10^3uL (1.8-7.7) Lymphocytes # (Auto) 2.0 x10^3/uL (1.0-4.8) Monocytes # (Auto) 0.5 x10^3/uL (0.0-1.1) Eosinophils # (Auto) 0.2 x10^3/uL (0.0-0.7) Basophils # (Auto) 0.1 x10^3/uL (0.0-0.2) Sodium Level 140 mmol/L (136-145) Potassium Level 4.1 mmol/L (3.5-5.1) Chloride Level 104 mmol/L (98-107) Carbon Dioxide Level 29 mmol/L (21-32) Anion Gap 7 (6-14) Blood Urea Nitrogen 9 mg/dL (7-20) Creatinine 0.7 mg/dL (0.6-1.0) Estimated GFR (Cockcroft-Gault) 93.6 Glucose Level 197 mg/dL (70-99) Calcium Level 9.0 mg/dL (8.5-10.1) Glucose (Fingerstick) 127 mg/dL (70-99) 93 mg/dL (70-99) Laboratory Tests Test 12/31/18 15:07 12/31/18 18:10 12/31/18 20:18 12/31/18 21:59 Glucose (Fingerstick) 80 mg/dL (70-99) 194 mg/dL (70-99) 229 mg/dL (70-99) 203 mg/dL (70-99) Test 01/01/19 02:39 01/01/19 04:00 01/01/19 06:20 01/01/19 10:09 Glucose (Fingerstick) 129 mg/dL (70-99) 127 mg/dL (70-99) 93 mg/dL (70-99) White Blood Count 7.5 x10^3/uL (4.0-11.0) Red Blood Count 4.74 x10^6/uL (3.50-5.40) Hemoglobin 13.7 g/dL (12.0-15.5) Hematocrit 41.1 % (36.0-47.0) Mean Corpuscular Volume 87 fL (79-100) Mean Corpuscular Hemoglobin 29 pg (25-35) Mean Corpuscular Hemoglobin Concent 33 g/dL (31-37) Red Cell Distribution Width 15.7 % (11.5-14.5) Platelet Count 212 x10^3/uL (140-400) Neutrophils (%) (Auto) 65 % (31-73) Lymphocytes (%) (Auto) 27 % (24-48) Monocytes (%) (Auto) 6 % (0-9) Eosinophils (%) (Auto) 2 % (0-3) Basophils (%) (Auto) 1 % (0-3) Neutrophils # (Auto) 4.8 x10^3uL (1.8-7.7) Lymphocytes # (Auto) 2.0 x10^3/uL (1.0-4.8) Monocytes # (Auto) 0.5 x10^3/uL (0.0-1.1) Eosinophils # (Auto) 0.2 x10^3/uL (0.0-0.7) Basophils # (Auto) 0.1 x10^3/uL (0.0-0.2) Sodium Level 140 mmol/L (136-145) Potassium Level 4.1 mmol/L (3.5-5.1) Chloride Level 104 mmol/L (98-107) Carbon Dioxide Level 29 mmol/L (21-32) Anion Gap 7 (6-14) Blood Urea Nitrogen 9 mg/dL (7-20) Creatinine 0.7 mg/dL (0.6-1.0) Estimated GFR (Cockcroft-Gault) 93.6 Glucose Level 197 mg/dL (70-99) Calcium Level 9.0 mg/dL (8.5-10.1) Brief Hospital Course ms. hager, 38 yo femal, admit with weakness, nausea Symptomatic hypoglycemia - likely 2/2 GLP-1 agonist effect. req. IV D50 then D5 Abdominal pain - with transaminitis and mild lipase elevation she is likely having side effect of semaglutide. Discharge Information Condition at Discharge: Improved Follow Up: Weeks Disposition/Orders: D/C to Home Scheduled Black Cohosh (Black Cohosh) 540 Mg Capsule, 540 MG PO DAILY for hot flashes, (Reported) Entered as Reported by: SALVADOR LUO on 09/24/181045 Desvenlafaxine Succinate (Pristiq Er) 50 Mg Tab.er.24h, 1 TAB PO DAILY for DEPRESSION, #30 Ref 5 (Reported) Entered as Reported by: LOUIS MACIEL on 09/07/181000 Last Action: Converted on 12/29/182040 by JOHN PAUL ROMO MD Desvenlafaxine Succinate (Pristiq Er) 50 Mg Tab.er.24h, 50 MG PO DAILY for depression, (Reported) Entered as Reported by: REAGAN POON RN on 12/29/182035 Last Action: New Order on 12/29/182035 by REAGAN POON RN Gabapentin (Gabapentin ) 300 Mg Capsule, 300 MG PO HS for NEUROGENIC PAIN, (Reported) Entered as Reported by: LOUIS MACIEL on 09/07/181000 Last Action: Continued on 12/29/181536 by JOHN PALU ROMO MD Insulin Degludec (Tresiba Flextouch U-100) 100 Unit/1 Ml Insuln.pen, 30 UNIT SQ HS for elevated blood sugar, (Reported) Entered as Reported by: SALVADOR LUO on 09/24/181045 Lubiprostone (Amitiza) 8 Mcg Capsule, 8 MCG PO DAILY for stomach issues, (Reported) Entered as Reported by: SALVADOR LUO on 09/24/181045 Last Action: Continued on 12/29/181536 by JOHN PAUL ROMO MD Pantoprazole Sodium (Protonix) 20 Mg Tablet., 40 MG PO DAILY for acid indigestion, (Reported) Entered as Reported by: JULIA EDGRA on 06/17/18 0015 Last Action: Converted on 12/29/181536 by JOHN PAUL ROMO MD Trazodone Hcl (Trazodone Hcl) 100 Mg Tablet, 1 TAB PO QHS for SLEEP, #30 Ref 2 (Reported) Entered as Reported by: LOUIS MACIEL on 09/07/18 100 Last Action: Continued on 12/29/181536 by JOHN PAUL ROMO MD Scheduled PRN Alprazolam (Alprazolam) 0.5 Mg Tablet, 1 MG PO PRN TID PRN for ANXIETY, #90 (Reported) Entered as Reported by: LOUIS MACIEL on 09/07/181000 Last Action: Continued on 12/29/181536 by JOHN PAUL ROMO MD Insulin Lispro (Humalog) 100 Unit/1 Ml Cartridge, 12 UNIT SQ PRN BFRMEAL PRN for SEE COMMENTS, (Reported) Entered as Reported by: SALVADOR LUO on 09/24/18 1046 Oxycodone/Apap 5-325 (Percocet 5-325 Mg Tablet ) 1 Each Tablet, 1-2 TAB PO PRN Q4-6HRS PRN for PAIN, #30 Ref 0 (Reported) Entered as Reported by: DERRICK LOCKETT, RN on 09/27/18 0858 Last Action: Continued on 12/29/181536 by JOHN PAUL ROMO MD Patient Instructions Patient Instructions > 30 min monitor blood glucose frequently, ALEX ROLAND MD January 01, 2019 14:33
[2019-01-01 15:00] VITALS: BP 144/75
--- NOTE | 2019-01-01 17:00 | NUR ---
This patient discharged from the facility at 1640. The patient discharged with her belongings and discharge paperwork. Discharge paperwork was discussed with the patient prior to her departure and she had not questions or concerns. Patient ambulated off the unit with her friend.
== END 2019-01-01 16:40 | disposition home or self-care (01) | DRG 639 ==
LOC: ER 11:02 → 5 NORTH 15:15
PROVIDERS: ADMIT Internal Medicine; ATTEND Internal Medicine
DX: E11.649 Type 2 diabetes mellitus with hypoglycemia without coma (principal); T38.3X5A Adverse effect of insulin and oral hypoglycemic [antidiabetic] drugs, initial encounter; K76.0 Fatty (change of) liver, not elsewhere classified; K21.9 Gastro-esophageal reflux disease without esophagitis; I10 Essential (primary) hypertension; F41.9 Anxiety disorder, unspecified; F32.9 Major depressive disorder, single episode, unspecified; E66.9 Obesity, unspecified; G89.29 Other chronic pain; F17.210 Nicotine dependence, cigarettes, uncomplicated; Z90.49 Acquired absence of other specified parts of digestive tract; Z90.710 Acquired absence of both cervix and uterus; Z79.4 Long term (current) use of insulin; Z68.32 Body mass index [BMI] 32.0-32.9, adult; Z88.1 Allergy status to other antibiotic agents; Z82.49 Family history of ischemic heart disease and other diseases of the circulatory system; Z83.3 Family history of diabetes mellitus; Z83.71 Family history of colonic polyps; Y92.89 Other specified places as the place of occurrence of the external cause
CPT/HCPCS: 36415; 74177; 80048; 80053; 81001; 82947; 82962; 83690; 85025; 87045; 87086; 87329; 87493; 96361; 96374; 96375; 96376; J1815; J2270; J2405; J7042; Q9967; 99285-25

== ENCOUNTER 2019-01-03 00:58 | Inpatient (IN) | payer BC ==
[~2019-01-03] VITALS: Ht 162.6 cm; Wt 84.8 kg
--- NOTE | 2019-01-03 01:49 | PHYS DOC ---
Past Medical History Past Medical History: Diabetes-Type II, Other Additional Past Medical Histor: NON-ALCHOL RELATED FATTY LIVER, HYDRONAITIS Past Surgical History: Cholecystectomy, Hysterectomy, Tonsillectomy Additional Past Surgical Histo: bilateral ankles, multiple abscess removal, breast reduction, hernia Alcohol Use: Occasionally Drug Use: None Adult General Chief Complaint Chief Complaint: HYPOGLYCEMIA HPI HPI Patient is a 38 year old F who present with hypoglycemia. She states that when she took her blood sugar tonight around 11:30 it was 34. She has had numerous episodes of this in the past. She has not taken any of diabetic medication since last Thursday. She denies any fever, chills, or vomiting. She does complain of nausea and upper abdominal pain. SHE WAS ADMITTED IN THE PAST COUPLE OF DAYS WAS ON A DRIP, THINGS IMPROVED SHE ATE TUNA SHE ATE EGGS SHE DRANK COKE TODAY THEN SHE FELT SHAKY THIS EVENING AND CHECKED SUGAR THEN CAME TO ER Review of Systems Review of Systems Constitutional: Denies fever or chills [] Eyes: Denies change in visual acuity, redness, or eye pain [] Respiratory: Denies cough or shortness of breath [] Musculoskeletal: Denies back pain or joint pain [] Integument: Denies rash or skin lesions [] Neurologic: Denies headache, focal weakness or sensory changes [] Endocrine: Denies polyuria or polydipsia [] All other systems were reviewed and found to be within normal limits, except as documented in this note. Current Medications Current Medications Current Medications Medications (Trade) Dose Ordered Sig/Taqueria Start Time Stop Time Status Last Admin Dose Admin Ceftriaxone Sodium (Rocephin) 1 gm 1X ONCE 01/03/19 04:45 01/03/19 04:46 Dextrose (Dextrose 50%-Water Syringe) 25 gm 1X ONCE 01/03/19 04:30 01/03/19 04:33 DC 01/03/19 04:25 25 GM Dextrose/Sodium Chloride 1,000 ml @ 125 mls/hr 1X ONCE 01/03/19 04:30 01/03/19 12:29 Fentanyl Citrate (Fentanyl 2ml Vial) 50 mcg 1X ONCE 01/03/19 02:30 01/03/19 02:31 DC 01/03/19 02:34 50 MCG Multi-Ingredient Mouthwash/Gargle (Gi Cocktail) 20 ml 1X ONCE 01/03/19 02:30 01/03/19 02:31 DC 01/03/19 02:34 20 ML Sodium Chloride 500 ml @ 500 mls/hr 1X ONCE 01/03/19 02:30 01/03/19 03:29 DC 01/03/19 02:30 500 MLS/HR Allergies Allergies Allergies Coded Allergies Type Severity Reaction Last Updated Verified levofloxacin Allergy Intermediate Rash 09/27/18 Yes vancomycin Allergy Intermediate Rash 09/27/18 Yes Physical Exam Physical Exam Constitutional: Well developed, well nourished, no acute distress, non-toxic appearance. [] HENT: Normocephalic, atraumatic, bilateral external ears normal, oropharynx DRY, no oral exudates, nose normal. [] Eyes: PERRLA, EOMI, conjunctiva normal, no discharge. [] Neck: Normal range of motion, no tenderness, supple, no stridor. [] Cardiovascular:Heart rate regular rhythm, no murmur [] Lungs & Thorax: Bilateral breath sounds clear to auscultation [] Abdomen: Bowel sounds normal, soft, EPIGASTRIC tenderness, no masses, no pulsatile masses. [] Skin: Warm, dry, no erythema, no rash. [] Extremities: No tenderness, no cyanosis, no clubbing, ROM intact, no edema. [] Neurologic: Alert and oriented X 3, normal motor function, normal sensory fu nction, no focal deficits noted. [] Psychologic: Affect normal, judgement normal, mood normal. [] Current Patient Data Vital Signs Vital Signs Date Time Temp Pulse Resp B/P (MAP) Pulse Ox O2 Delivery O2 Flow Rate FiO2 01/03/19 04:26 110 20 110/61 (77) 95 01/03/19 01:09 98.4 Room Air 98.4 Lab Values Laboratory Tests Test 01/03/19 01:10 01/03/19 01:11 01/03/19 01:50 01/03/19 02:55 Urine Collection Type Unknown Urine Color Yellow Urine Clarity Clear Urine pH 7.5 Urine Specific [place] 1.025 Urine Protein 30 mg/dL (NEG-TRACE) Urine Glucose (UA) Negative mg/dL (NEG) Urine Ketones (Stick) Negative mg/dL (NEG) Urine Blood Negative (NEG) Urine Nitrite Negative (NEG) Urine Bilirubin Negative (NEG) Urine Urobilinogen Dipstick 1.0 mg/dL (0.2 mg/dL) Urine Leukocyte Esterase Small (NEG) Urine RBC Occ /HPF (0-2) Urine WBC 5-10 /HPF (0-4) Urine Squamous Epithelial Cells Many /LPF Urine Bacteria Moderate /HPF (0-FEW) Urine Mucus Marked /LPF Glucose (Fingerstick) 61 mg/dL (70-99) L 159 mg/dL (70-99) H White Blood Count 13.1 x10^3/uL (4.0-11.0) H Red Blood Count 5.23 x10^6/uL (3.50-5.40) Hemoglobin 15.1 g/dL (12.0-15.5) Hematocrit 45.0 % (36.0-47.0) Mean Corpuscular Volume 86 fL (79-100) Mean Corpuscular Hemoglobin 29 pg (25-35) Mean Corpuscular Hemoglobin Concent 34 g/dL (31-37) Red Cell Distribution Width 15.3 % (11.5-14.5) H Platelet Count 260 x10^3/uL (140-400) Neutrophils (%) (Auto) 71 % (31-73) Lymphocytes (%) (Auto) 21 % (24-48) L Monocytes (%) (Auto) 7 % (0-9) Eosinophils (%) (Auto) 1 % (0-3) Basophils (%) (Auto) 1 % (0-3) Neutrophils # (Auto) 9.3 x10^3uL (1.8-7.7) H Lymphocytes # (Auto) 2.7 x10^3/uL (1.0-4.8) Monocytes # (Auto) 0.9 x10^3/uL (0.0-1.1) Eosinophils # (Auto) 0.1 x10^3/uL (0.0-0.7) Basophils # (Auto) 0.1 x10^3/uL (0.0-0.2) Sodium Level 139 mmol/L (136-145) Potassium Level 3.7 mmol/L (3.5-5.1) Chloride Level 102 mmol/L (98-107) Carbon Dioxide Level 27 mmol/L (21-32) Anion Gap 10 (6-14) Blood Urea Nitrogen 11 mg/dL (7-20) Creatinine 0.7 mg/dL (0.6-1.0) Estimated GFR (Cockcroft-Gault) 93.6 BUN/Creatinine Ratio 16 (6-20) Glucose Level 84 mg/dL (70-99) Calcium Level 10.0 mg/dL (8.5-10.1) Total Bilirubin 0.4 mg/dL (0.2-1.0) Aspartate Amino Transferase (AST) 42 U/L (15-37) H Alanine Aminotransferase (ALT) 96 U/L (14-59) H Alkaline Phosphatase 108 U/L (46-116) Troponin I Quantitative < 0.017 ng/mL (0.000-0.055) Total Protein 7.5 g/dL (6.4-8.2) Albumin 3.8 g/dL (3.4-5.0) Albumin/Globulin Ratio 1.0 (1.0-1.7) Lipase 63 U/L (73-393) L Test 01/03/19 04:12 Glucose (Fingerstick) 38 mg/dL (70-99) *L Laboratory Tests 01/03/19 01:50 Laboratory Tests 01/03/19 01:50 EKG EKG []EKG shows a sinus tach rate 1:15 no acute ischemic changes noted. Radiology/Procedures Radiology/Procedures [] Impressions: Chest x-ray was negative acute interpreted by ct Course & Med Decision Making Course & Med Decision Making Pertinent Labs and Imaging studies reviewed. (See chart for details) []PT ATE A TURKEY SANDWICH AND THE BG BACK DOWN TO 38 AN HOUR AFTER THAT D5 DRIP INITIATED ADMIT TO [facility] NOTED DIRTY U/A, GAVE CEFTRIAXONE IN CASE BUT DOUBT ACUTE UTI Unclear etiology of the persistent hypoglycemia perhaps it is a persistent GI P1 medication effect although it is a week out now that seems less likely. 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 Patient denies any recent insulin use, I'm not sure what is causing this profound persistent hypoglycemia Dragon Disclaimer Dragon Disclaimer This electronic medical record was generated, in whole or in part, using a voice recognition dictation system. Departure Departure Impression: Primary Impression: Hypoglycemia Disposition: ADMITTED INPATIENT Admitting Physician: Other Condition: STABLE Referrals: JANET FULLER (PCP) RENAY SKY MD January 03, 2019 01:49
[2019-01-03 02:02] LABS: BASO # 0.1 x10^3/uL (0.0-0.2); BASO % 1 % (0-3); EOS # 0.1 x10^3/uL (0.0-0.7); EOS % 1 % (0-3); HEMOGLOBIN 15.1 g/dL (12.0-15.5); LYMPH # 2.7 x10^3/uL (1.0-4.8); LYMPH % 21 % (24-48); MEAN CORPUSCULAR HEMOGLOBIN 29 pg (25-35); MEAN CORPUSCULAR HGB CONC 34 g/dL (31-37); MEAN CORPUSCULAR VOLUME 86 fL (79-100); MONO # 0.9 x10^3/uL (0.0-1.1); MONO % 7 % (0-9); NEUT # 9.3 x10^3uL (1.8-7.7); NEUT % 71 % (31-73); PLATELET COUNT 260 x10^3/uL (140-400); RED BLOOD COUNT 5.23 x10^6/uL (3.50-5.40); RED CELL DISTRIBUTION WIDTH 15.3 % (11.5-14.5); WHITE BLOOD COUNT 13.1 x10^3/uL (4.0-11.0)
[2019-01-03 02:04] LABS: BILIRUBIN,URINE NEGATIVE (NEG); CLARITY,URINE CLEAR; COLOR,URINE YELLOW; NITRITE,URINE NEGATIVE (NEG); PH,URINE 7.5; PROTEIN,URINE 30 mg/dL (NEG-TRACE)
[2019-01-03 02:08] LABS: BACTERIA,URINE MODERATE /HPF (0-FEW); RBC,URINE OCC /HPF (0-2); SQUAMOUS EPITHELIAL CELL,UR MANY /LPF
[2019-01-03 02:10] LABS: CREATININE 0.7 mg/dL (0.6-1.0); GFR 93.6; POTASSIUM 3.7 mmol/L (3.5-5.1)
[2019-01-03 02:16] LABS: ALBUMIN 3.8 g/dL (3.4-5.0); TOTAL BILIRUBIN 0.4 mg/dL (0.2-1.0); TOTAL PROTEIN 7.5 g/dL (6.4-8.2)
[2019-01-03] MEDS ORDERED: DEXTROSE 50% 25 GM / 50ML DISP.SYRIN. IV ONE ×2 (02:30→04:30)
[2019-01-03] MEDS ORDERED: fentaNYL PF VIAL 100 MCG/2 ML VIAL IV ONE (02:30)
[2019-01-03] MEDS ORDERED: IV NORMAL SALINE 500ML BAG 500 ML IV ONE ×2 (02:30→08:45)
[2019-01-03] MEDS ORDERED: LIDO:MAALOX 1:1 20 ML SINGLE DOSE. SWSW ONE (02:30)
[2019-01-03] MEDS ORDERED: IV DEXTROSE 5 %-0.45 % NACL 1,000 ML IV ONE (04:30)
[2019-01-03] MEDS ORDERED: cefTRIAXone IV Push 1 GM VIAL. IVP ONE (04:45)
[2019-01-03 05:20] VITALS: BP 116/77
[2019-01-03] MEDS: fentaNYL PF VIAL 100 MCG/2 ML VIAL IV PRN ×7 (05:50→20:46)
[2019-01-03 07:00] VITALS: BP 86/54
[2019-01-03] MEDS: DEXTROSE 50% 25 GM / 50ML DISP.SYRIN. IV PRN ×5 (08:11→22:02)
--- NOTE | 2019-01-03 08:21 | EKG ---
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 Electronically Signed On 01-05-2019 16:16:16 CDT by Ankit Pardo
--- NOTE | 2019-01-03 08:27 | RAD ---
Portable chest, 01/03/2019: HISTORY: Shortness of breath Comparison is made to a study from 09/12/2018. The heart size and pulmonary vascularity are normal. The lungs are clear. There is no evidence of pleural fluid. IMPRESSION: No acute cardiopulmonary abnormality is detected. Electronically signed by: Jose Lange MD (01/03/2019 8:24 AM) [facility]
--- NOTE | 2019-01-03 09:29 | NUR ---
SW following for discharge planning. Discussed with RN, pt is from home alone. RN advised pt's sugars are unstable and no SW needs at this time. SW will continue to follow for any discharge planning needs.
--- NOTE | 2019-01-03 10:06 | PDOC1 ---
History and Physical Date of Admission Date of Admission DATE: 01/03/19 TIME: 10:05 Identification/Chief Complaint Chief Complaint SEEN IN ER WITH HYPOGLYCEMIApatient is a 38 year old F who present with hypoglycemia. She states that when she took her blood sugar tonight around 11:30 it was 34. She has had numerous episodes of this in the past. She has not taken any of diabetic medication since last Thursday. She denies any fever, chills, or vomiting. She does complain of nausea and upper abdominal pain. SHE WAS ADMITTED IN THE PAST COUPLE OF DAYS WAS ON A DRIP, THINGS IMPROVED SHE ATE TUNA SHE ATE EGGS SHE DRANK COKE 01/02 THEN SHE FELT SHAKY Past Medical History Past Medical History Past Medical History Past Medical History Past Medical History: Diabetes-Type II, Other Additional Past Medical Histor: NON-ALCHOL RELATED FATTY LIVER, HYDRONAITIS Past Surgical History: Cholecystectomy, Hysterectomy, Tonsillectomy Additional Past Surgical Histo: bilateral ankles, multiple abscess removal, breast reduction, hernia Alcohol Use: Occasionally Drug Use: None family hx obesity Cardiovascular: HTN GI: GERD Psych: Anxiety, Depression Endocrine: Diabetes Past Surgical History Past Surgical History: Cholecystectomy, Hysterectomy Family History Family History: Diabetes, Hypertension Social History ALCOHOL: none Drugs: None Current Medications Current Medications Current Medications Sodium Chloride 500 ml @ 500 mls/hr 1X ONCE IV Last administered on 01/03/19at 02:30; Start 01/03/19 at 02:30; Stop 01/03/19 at 03:29; Status DC Fentanyl Citrate (Fentanyl 2ml Vial) 50 mcg 1X ONCE IV Last administered on 01/03/19at 02:34; Start 01/03/19 at 02:30; Stop 01/03/19 at 02:31; Status DC Multi-Ingredient Mouthwash/Gargle (Gi Cocktail) 20 ml 1X ONCE SWSW Last administered on 01/03/19at 02:34; Start 01/03/19 at 02:30; Stop 01/03/19 at 02:31; Status DC Dextrose (Dextrose 50%-Water Syringe) 25 gm 1X ONCE IV Last administered on 01/03/19at 02:33; Start 01/03/19 at 02:30; Stop 01/03/19 at 02:31; Status DC Dextrose/Sodium Chloride 1,000 ml @ 125 mls/hr 1X ONCE IV Last administered on 01/03/19at 04:47; Start 01/03/19 at 04:30; Stop 01/03/19 at 12:29 Ceftriaxone Sodium (Rocephin) 1 gm 1X ONCE IVP Last administered on 01/03/19at 04:43; Start 01/03/19 at 04:45; Stop 01/03/19 at 04:46; Status DC Dextrose (Dextrose 50%-Water Syringe) 25 gm 1X ONCE IV Last administered on 01/03/19at 04:25; Start 01/03/19 at 04:30; Stop 01/03/19 at 04:33; Status DC Fentanyl Citrate (Fentanyl 2ml Vial) 50 mcg PRN Q2HR PRN IV pain Last administered on 01/03/19at 08:08; Start 01/03/19 at 05:15 Dextrose (Dextrose 50%-Water Syringe) 12.5 gm PRN Q15MIN PRN IV SEE COMMENTS Last administered on 01/03/19at 08:11; Start 01/03/19 at 08:45 Sodium Chloride 500 ml @ 500 mls/hr 1X ONCE IV Last administered on 01/03/19at 08:11; Start 01/03/19 at 08:45; Stop 01/03/19 at 09:44; Status DC Active Scripts Active Reported Pristiq Er (Desvenlafaxine Succinate) 50 Mg Tab.er.24h 50 Mg PO DAILY Black Cohosh 540 Mg Capsule 540 Mg PO DAILY Amitiza (Lubiprostone) 8 Mcg Capsule 8 Mcg PO DAILY Pristiq Er (Desvenlafaxine Succinate) 50 Mg Tab.er.24h 1 Tab PO DAILY Alprazolam 0.5 Mg Tablet 1 Mg PO PRN TID PRN Trazodone Hcl 100 Mg Tablet 1 Tab PO QHS Gabapentin (Gabapentin) 300 Mg Capsule 300 Mg PO HS Protonix (Pantoprazole Sodium) 20 Mg Tablet.dr 40 Mg PO DAILY Allergies Allergies: Coded Allergies: levofloxacin (Verified Allergy, Intermediate, Rash, 09/27/18) vancomycin (Verified Allergy, Intermediate, Rash, 09/27/18) ROS Review of System Review of Systems Review of Systems Constitutional: Denies fever or chills [] Eyes: Denies change in visual acuity, redness, or eye pain [] Respiratory: Denies cough or shortness of breath [] Musculoskeletal: Denies back pain or joint pain [] Integument: Denies rash or skin lesions [] Neurologic: Denies headache, focal weakness or sensory changes [] Endocrine: Denies polyuria or polydipsia [] 14 PT systems were reviewed and found to be within normal limits, except as documented Hematological and Lymphatic: No: Bleeding Problems, Blood Clots, Blood Transfusions, Brusing, Night Sweats, Pallor, Swollen Lymph Nodes, Other Gastrointestinal: No Nausea, No Vomiting, No Abdominal Pain, No Diarrhea, No Constipation, No Melena, No Hematochezia, No Other Physical Exam Physical Exam Physical Exam Physical Exam Constitutional: Well developed, well nourished, no acute distress, non-toxic appearance. [] HENT: Normocephalic, atraumatic, bilateral external ears normal, oropharynx DRY, no oral exudates, nose normal. [] Eyes: PERRLA, EOMI, conjunctiva normal, no discharge. [] Neck: Normal range of motion, no tenderness, supple, no stridor. [] Cardiovascular:Heart rate regular rhythm, no murmur [] Lungs & Thorax: Bilateral breath sounds clear to auscultation [] Abdomen: Bowel sounds normal, soft, EPIGASTRIC tenderness, no masses, no pulsatile masses. [] Skin: Warm, dry, no erythema, no rash. [] Extremities: No tenderness, no cyanosis, no clubbing, ROM intact, no edema. [] Neurologic: Alert and oriented X 3, normal motor function, normal sensory function, no focal deficits noted. [] Psychologic: Affect normal, judgement normal, mood normal. [] General: Alert, Oriented X3, Cooperative, mild distress HEENT: Atraumatic, PERRLA, EOMI Lungs: Clear to auscultation Breasts: Not examined Abdomen: Soft Rectal Exam: not examined PELVIC: Examination not indicated Extremities: No cyanosis Skin: No rashes, No breakdown Neuro: Normal speech, Cranial nerves 3-12 NL Psych/Mental Status: Mental status NL, Mood NL Vitals Vitals Vital Signs Date Time Temp Pulse Resp B/P (MAP) Pulse Ox O2 Delivery O2 Flow Rate FiO2 01/03/19 08:42 Room Air 01/03/19 08:08 96 01/03/19 07:00 95 18 86/54 (65) 01/03/19 05:20 98.5 98.5 Labs Labs Laboratory Tests Test 01/03/19 01:10 01/03/19 01:11 01/03/19 01:50 01/03/19 02:55 Urine Collection Type Unknown Urine Color Yellow Urine Clarity Clear Urine pH 7.5 Urine Specific [place] 1.025 Urine Protein 30 mg/dL (NEG-TRACE) Urine Glucose (UA) Negative mg/dL (NEG) Urine Ketones (Stick) Negative mg/dL (NEG) Urine Blood Negative (NEG) Urine Nitrite Negative (NEG) Urine Bilirubin Negative (NEG) Urine Urobilinogen Dipstick 1.0 mg/dL (0.2 mg/dL) Urine Leukocyte Esterase Small (NEG) Urine RBC Occ /HPF (0-2) Urine WBC 5-10 /HPF (0-4) Urine Squamous Epithelial Cells Many /LPF Urine Bacteria Moderate /HPF (0-FEW) Urine Mucus Marked /LPF Glucose (Fingerstick) 61 mg/dL (70-99) 159 mg/dL (70-99) White Blood Count 13.1 x10^3/uL (4.0-11.0) Red Blood Count 5.23 x10^6/uL (3.50-5.40) Hemoglobin 15.1 g/dL (12.0-15.5) Hematocrit 45.0 % (36.0-47.0) Mean Corpuscular Volume 86 fL (79-100) Mean Corpuscular Hemoglobin 29 pg (25-35) Mean Corpuscular Hemoglobin Concent 34 g/dL (31-37) Red Cell Distribution Width 15.3 % (11.5-14.5) Platelet Count 260 x10^3/uL (140-400) Neutrophils (%) (Auto) 71 % (31-73) Lymphocytes (%) (Auto) 21 % (24-48) Monocytes (%) (Auto) 7 % (0-9) Eosinophils (%) (Auto) 1 % (0-3) Basophils (%) (Auto) 1 % (0-3) Neutrophils # (Auto) 9.3 x10^3uL (1.8-7.7) Lymphocytes # (Auto) 2.7 x10^3/uL (1.0-4.8) Monocytes # (Auto) 0.9 x10^3/uL (0.0-1.1) Eosinophils # (Auto) 0.1 x10^3/uL (0.0-0.7) Basophils # (Auto) 0.1 x10^3/uL (0.0-0.2) Sodium Level 139 mmol/L (136-145) Potassium Level 3.7 mmol/L (3.5-5.1) Chloride Level 102 mmol/L (98-107) Carbon Dioxide Level 27 mmol/L (21-32) Anion Gap 10 (6-14) Blood Urea Nitrogen 11 mg/dL (7-20) Creatinine 0.7 mg/dL (0.6-1.0) Estimated GFR (Cockcroft-Gault) 93.6 BUN/Creatinine Ratio 16 (6-20) Glucose Level 84 mg/dL (70-99) Calcium Level 10.0 mg/dL (8.5-10.1) Total Bilirubin 0.4 mg/dL (0.2-1.0) Aspartate Amino Transf (AST/SGOT) 42 U/L (15-37) Alanine Aminotransferase (ALT/SGPT) 96 U/L (14-59) Alkaline Phosphatase 108 U/L (46-116) Troponin I Quantitative < 0.017 ng/mL (0.000-0.055) Total Protein 7.5 g/dL (6.4-8.2) Albumin 3.8 g/dL (3.4-5.0) Albumin/Globulin Ratio 1.0 (1.0-1.7) Lipase 63 U/L (73-393) Test 01/03/19 04:12 01/03/19 06:08 01/03/19 07:57 01/03/19 08:28 Glucose (Fingerstick) 38 mg/dL (70-99) 80 mg/dL (70-99) 45 mg/dL (70-99) 132 mg/dL (70-99) Laboratory Tests Test 01/03/19 01:10 01/03/19 01:11 01/03/19 01:50 01/03/19 02:55 Urine Collection Type Unknown Urine Color Yellow Urine Clarity Clear Urine pH 7.5 Urine Specific [place] 1.025 Urine Protein 30 mg/dL (NEG-TRACE) Urine Glucose (UA) Negative mg/dL (NEG) Urine Ketones (Stick) Negative mg/dL (NEG) Urine Blood Negative (NEG) Urine Nitrite Negative (NEG) Urine Bilirubin Negative (NEG) Urine Urobilinogen Dipstick 1.0 mg/dL (0.2 mg/dL) Urine Leukocyte Esterase Small (NEG) Urine RBC Occ /HPF (0-2) Urine WBC 5-10 /HPF (0-4) Urine Squamous Epithelial Cells Many /LPF Urine Bacteria Moderate /HPF (0-FEW) Urine Mucus Marked /LPF Glucose (Fingerstick) 61 mg/dL (70-99) 159 mg/dL (70-99) White Blood Count 13.1 x10^3/uL (4.0-11.0) Red Blood Count 5.23 x10^6/uL (3.50-5.40) Hemoglobin 15.1 g/dL (12.0-15.5) Hematocrit 45.0 % (36.0-47.0) Mean Corpuscular Volume 86 fL (79-100) Mean Corpuscular Hemoglobin 29 pg (25-35) Mean Corpuscular Hemoglobin Concent 34 g/dL (31-37) Red Cell Distribution Width 15.3 % (11.5-14.5) Platelet Count 260 x10^3/uL (140-400) Neutrophils (%) (Auto) 71 % (31-73) Lymphocytes (%) (Auto) 21 % (24-48) Monocytes (%) (Auto) 7 % (0-9) Eosinophils (%) (Auto) 1 % (0-3) Basophils (%) (Auto) 1 % (0-3) Neutrophils # (Auto) 9.3 x10^3uL (1.8-7.7) Lymphocytes # (Auto) 2.7 x10^3/uL (1.0-4.8) Monocytes # (Auto) 0.9 x10^3/uL (0.0-1.1) Eosinophils # (Auto) 0.1 x10^3/uL (0.0-0.7) Basophils # (Auto) 0.1 x10^3/uL (0.0-0.2) Sodium Level 139 mmol/L (136-145) Potassium Level 3.7 mmol/L (3.5-5.1) Chloride Level 102 mmol/L (98-107) Carbon Dioxide Level 27 mmol/L (21-32) Anion Gap 10 (6-14) Blood Urea Nitrogen 11 mg/dL (7-20) Creatinine 0.7 mg/dL (0.6-1.0) Estimated GFR (Cockcroft-Gault) 93.6 BUN/Creatinine Ratio 16 (6-20) Glucose Level 84 mg/dL (70-99) Calcium Level 10.0 mg/dL (8.5-10.1) Total Bilirubin 0.4 mg/dL (0.2-1.0) Aspartate Amino Transf (AST/SGOT) 42 U/L (15-37) Alanine Aminotransferase (ALT/SGPT) 96 U/L (14-59) Alkaline Phosphatase 108 U/L (46-116) Troponin I Quantitative < 0.017 ng/mL (0.000-0.055) Total Protein 7.5 g/dL (6.4-8.2) Albumin 3.8 g/dL (3.4-5.0) Albumin/Globulin Ratio 1.0 (1.0-1.7) Lipase 63 U/L (73-393) Test 01/03/19 04:12 01/03/19 06:08 01/03/19 07:57 01/03/19 08:28 Glucose (Fingerstick) 38 mg/dL (70-99) 80 mg/dL (70-99) 45 mg/dL (70-99) 132 mg/dL (70-99) VTE Prophylaxis Ordered VTE Prophylaxis Devices: Yes VTE Pharmacological Prophylaxi: Yes Assessment/Plan Assessment/Plan Symptomatic hypoglycemia - l. Will place on D5 . Monitor blood glucose closely Abdominal pain - with transaminitis last week side effect of semaglutide. HTN - cont home meds GERD - cont PPI Anxiety/depression - cont home meds DM2 - will need alternative therapy, Obesity - BMI 32, counseled on weight loss HOLD ALL Glucose lowering agents dvt prophylaxis hold all herbal supplements hold all antidepressants 58 min pt exam, chart review, > 50% of time spent with exam, chart review, pt care coordination SOFIA ASKEW MD January 03, 2019 10:06
[2019-01-03 11:00] VITALS: BP 114/74
[2019-01-03 11:16] LABS: C-PEPTIDE 1.2 ng/mL (1.1-4.4); INSULIN LEVEL 26.6 uIU/mL (2.6-24.9)
[2019-01-03] MEDS: PANTOPRAZOLE 40 MG TABLET.DR. PO SCH (14:52)
[2019-01-03] MEDS: IV DEXTROSE 5 %-0.45 % NACL 1,000 ML IV SCH (14:53)
[2019-01-03 15:00] VITALS: BP 121/81
[2019-01-03 19:00] VITALS: BP 115/71
[2019-01-03] MEDS: ALPRAZolam 1 MG TABLET PO PRN (22:01)
[2019-01-03 23:00] VITALS: BP 102/70
[2019-01-04] MEDS: fentaNYL PF VIAL 100 MCG/2 ML VIAL IV PRN ×9 (00:15→22:01)
[2019-01-04] MEDS: DEXTROSE 50% 25 GM / 50ML DISP.SYRIN. IV PRN ×2 (00:27→04:04)
[2019-01-04] MEDS: IV DEXTROSE 5 %-0.45 % NACL 1,000 ML IV SCH ×3 (00:55→14:32)
[2019-01-04 03:00] VITALS: BP 112/71
[2019-01-04] MEDS ORDERED: IV NORMAL SALINE 1000ML BAG 1,000 ML IV SCH (04:00)
[2019-01-04] MEDS ORDERED: MORPHINE SULFATE 4 MG/ML VIAL. IV PRN (04:00)
[2019-01-04] MEDS ORDERED: ONDANSETRON PF 4 MG/2 ML VIAL. IV PRN (04:00)
[2019-01-04] MEDS: PANTOPRAZOLE 40 MG TABLET.DR. PO SCH (05:29)
[2019-01-04 06:34] LABS: CALCIUM 9.4 mg/dL (8.5-10.1); CREATININE 0.7 mg/dL (0.6-1.0); GFR 93.6; POTASSIUM 3.6 mmol/L (3.5-5.1)
[2019-01-04 07:00] VITALS: BP 112/70
--- NOTE | 2019-01-04 10:30 | PDOC ---
PROGRESS NOTES History of Present Illness History of Present Illness VTE Prophylaxis Ordered VTE Prophylaxis Devices: Yes VTE Pharmacological Prophylaxi: Yes Assessment/Plan Assessment/Plan Symptomatic hypoglycemia - on D5 . Monitor blood glucose closely still low this AM Abdominal pain - with transaminitis last week side effect of semaglutide. HTN - cont home meds GERD - cont PPI Anxiety/depression - cont home meds DM2 - will need alternative therapy, Obesity - BMI 32, counseled on weight loss HOLD ALL Glucose lowering agents dvt prophylaxis hold all herbal supplements hold all antidepressants SERUM INSULIN LEVEL 38 min pt exam, chart review, > 50% of time spent with exam, chart review, pt care coordination Vitals Vitals Vital Signs Date Time Temp Pulse Resp B/P (MAP) Pulse Ox O2 Delivery O2 Flow Rate FiO2 01/04/19 09:56 Room Air 01/04/19 07:00 98.6 103 18 112/70 (84) 96 98.6 Physical Exam General: Alert, Oriented X3, Cooperative, mild distress Heart: Regular rate, Normal S1, Normal S2 Lungs: Clear Abdomen: Normal bowel sounds, Soft, No hepatosplenomegaly Extremities: No clubbing, No cyanosis Skin: No rashes, No breakdown Labs LABS Laboratory Tests Test 01/03/19 10:33 01/03/19 15:46 01/03/19 16:59 01/03/19 17:37 Glucose (Fingerstick) 54 mg/dL (70-99) 72 mg/dL (70-99) 57 mg/dL (70-99) 66 mg/dL (70-99) Test 01/03/19 18:19 01/03/19 20:55 01/03/19 22:16 01/03/19 22:47 Glucose (Fingerstick) 96 mg/dL (70-99) 52 mg/dL (70-99) 115 mg/dL (70-99) 69 mg/dL (70-99) Test 01/04/19 00:11 01/04/19 00:50 01/04/19 03:05 01/04/19 04:22 Glucose (Fingerstick) 41 mg/dL (70-99) 145 mg/dL (70-99) 63 mg/dL (70-99) 124 mg/dL (70-99) Test 01/04/19 04:50 01/04/19 06:12 01/04/19 07:34 Sodium Level 141 mmol/L (136-145) Potassium Level 3.6 mmol/L (3.5-5.1) Chloride Level 105 mmol/L (98-107) Carbon Dioxide Level 28 mmol/L (21-32) Anion Gap 8 (6-14) Blood Urea Nitrogen 9 mg/dL (7-20) Creatinine 0.7 mg/dL (0.6-1.0) Estimated GFR (Cockcroft-Gault) 93.6 Glucose Level 96 mg/dL (70-99) Calcium Level 9.4 mg/dL (8.5-10.1) Glucose (Fingerstick) 75 mg/dL (70-99) 130 mg/dL (70-99) Comment Review of Relevant I have reviewed the following items sharda (where applicable) has been applied. Labs Laboratory Tests Test 01/03/19 01:10 01/03/19 01:11 01/03/19 01:50 01/03/19 02:55 Urine Collection Type Unknown Urine Color Yellow Urine Clarity Clear Urine pH 7.5 Urine Specific [place] 1.025 Urine Protein 30 mg/dL (NEG-TRACE) Urine Glucose (UA) Negative mg/dL (NEG) Urine Ketones (Stick) Negative mg/dL (NEG) Urine Blood Negative (NEG) Urine Nitrite Negative (NEG) Urine Bilirubin Negative (NEG) Urine Urobilinogen Dipstick 1.0 mg/dL (0.2 mg/dL) Urine Leukocyte Esterase Small (NEG) Urine RBC Occ /HPF (0-2) Urine WBC 5-10 /HPF (0-4) Urine Squamous Epithelial Cells Many /LPF Urine Bacteria Moderate /HPF (0-FEW) Urine Mucus Marked /LPF Glucose (Fingerstick) 61 mg/dL (70-99) 159 mg/dL (70-99) White Blood Count 13.1 x10^3/uL (4.0-11.0) Red Blood Count 5.23 x10^6/uL (3.50-5.40) Hemoglobin 15.1 g/dL (12.0-15.5) Hematocrit 45.0 % (36.0-47.0) Mean Corpuscular Volume 86 fL (79-100) Mean Corpuscular Hemoglobin 29 pg (25-35) Mean Corpuscular Hemoglobin Concent 34 g/dL (31-37) Red Cell Distribution Width 15.3 % (11.5-14.5) Platelet Count 260 x10^3/uL (140-400) Neutrophils (%) (Auto) 71 % (31-73) Lymphocytes (%) (Auto) 21 % (24-48) Monocytes (%) (Auto) 7 % (0-9) Eosinophils (%) (Auto) 1 % (0-3) Basophils (%) (Auto) 1 % (0-3) Neutrophils # (Auto) 9.3 x10^3uL (1.8-7.7) Lymphocytes # (Auto) 2.7 x10^3/uL (1.0-4.8) Monocytes # (Auto) 0.9 x10^3/uL (0.0-1.1) Eosinophils # (Auto) 0.1 x10^3/uL (0.0-0.7) Basophils # (Auto) 0.1 x10^3/uL (0.0-0.2) Sodium Level 139 mmol/L (136-145) Potassium Level 3.7 mmol/L (3.5-5.1) Chloride Level 102 mmol/L (98-107) Carbon Dioxide Level 27 mmol/L (21-32) Anion Gap 10 (6-14) Blood Urea Nitrogen 11 mg/dL (7-20) Creatinine 0.7 mg/dL (0.6-1.0) Estimated GFR (Cockcroft-Gault) 93.6 BUN/Creatinine Ratio 16 (6-20) Glucose Level 84 mg/dL (70-99) Insulin Level 26.6 uIU/mL (2.6-24.9) C-Peptide 1.2 ng/mL (1.1-4.4) Calcium Level 10.0 mg/dL (8.5-10.1) Total Bilirubin 0.4 mg/dL (0.2-1.0) Aspartate Amino Transf (AST/SGOT) 42 U/L (15-37) Alanine Aminotransferase (ALT/SGPT) 96 U/L (14-59) Alkaline Phosphatase 108 U/L (46-116) Troponin I Quantitative < 0.017 ng/mL (0.000-0.055) Total Protein 7.5 g/dL (6.4-8.2) Albumin 3.8 g/dL (3.4-5.0) Albumin/Globulin Ratio 1.0 (1.0-1.7) Lipase 63 U/L (73-393) Test 01/03/19 04:12 01/03/19 06:08 01/03/19 07:57 01/03/19 08:28 Glucose (Fingerstick) 38 mg/dL (70-99) 80 mg/dL (70-99) 45 mg/dL (70-99) 132 mg/dL (70-99) Test 01/03/19 10:12 01/03/19 10:33 01/03/19 15:46 01/03/19 16:59 Glucose (Fingerstick) 66 mg/dL (70-99) 54 mg/dL (70-99) 72 mg/dL (70-99) 57 mg/dL (70-99) Test 01/03/19 17:37 01/03/19 18:19 01/03/19 20:55 01/03/19 22:16 Glucose (Fingerstick) 66 mg/dL (70-99) 96 mg/dL (70-99) 52 mg/dL (70-99) 115 mg/dL (70-99) Test 01/03/19 22:47 01/04/19 00:11 01/04/19 00:50 01/04/19 03:05 Glucose (Fingerstick) 69 mg/dL (70-99) 41 mg/dL (70-99) 145 mg/dL (70-99) 63 mg/dL (70-99) Test 01/04/19 04:22 01/04/19 04:50 01/04/19 06:12 01/04/19 07:34 Glucose (Fingerstick) 124 mg/dL (70-99) 75 mg/dL (70-99) 130 mg/dL (70-99) Sodium Level 141 mmol/L (136-145) Potassium Level 3.6 mmol/L (3.5-5.1) Chloride Level 105 mmol/L (98-107) Carbon Dioxide Level 28 mmol/L (21-32) Anion Gap 8 (6-14) Blood Urea Nitrogen 9 mg/dL (7-20) Creatinine 0.7 mg/dL (0.6-1.0) Estimated GFR (Cockcroft-Gault) 93.6 Glucose Level 96 mg/dL (70-99) Calcium Level 9.4 mg/dL (8.5-10.1) Laboratory Tests Test 01/03/19 10:33 01/03/19 15:46 01/03/19 16:59 01/03/19 17:37 Glucose (Fingerstick) 54 mg/dL (70-99) 72 mg/dL (70-99) 57 mg/dL (70-99) 66 mg/dL (70-99) Test 01/03/19 18:19 01/03/19 20:55 01/03/19 22:16 01/03/19 22:47 Glucose (Fingerstick) 96 mg/dL (70-99) 52 mg/dL (70-99) 115 mg/dL (70-99) 69 mg/dL (70-99) Test 01/04/19 00:11 01/04/19 00:50 01/04/19 03:05 01/04/19 04:22 Glucose (Fingerstick) 41 mg/dL (70-99) 145 mg/dL (70-99) 63 mg/dL (70-99) 124 mg/dL (70-99) Test 01/04/19 04:50 01/04/19 06:12 01/04/19 07:34 Sodium Level 141 mmol/L (136-145) Potassium Level 3.6 mmol/L (3.5-5.1) Chloride Level 105 mmol/L (98-107) Carbon Dioxide Level 28 mmol/L (21-32) Anion Gap 8 (6-14) Blood Urea Nitrogen 9 mg/dL (7-20) Creatinine 0.7 mg/dL (0.6-1.0) Estimated GFR (Cockcroft-Gault) 93.6 Glucose Level 96 mg/dL (70-99) Calcium Level 9.4 mg/dL (8.5-10.1) Glucose (Fingerstick) 75 mg/dL (70-99) 130 mg/dL (70-99) Medications Current Medications Sodium Chloride 500 ml @ 500 mls/hr 1X ONCE IV Last administered on 01/03/19at 02:30; Start 01/03/19 at 02:30; Stop 01/03/19 at 03:29; Status DC Fentanyl Citrate (Fentanyl 2ml Vial) 50 mcg 1X ONCE IV Last administered on 01/03/19 02:34; Start 01/03/19 at 02:30; Stop 01/03/19 at 02:31; Status DC Multi-Ingredient Mouthwash/Gargle (Gi Cocktail) 20 ml 1X ONCE SWSW Last admi nistered on 01/03/19at 02:34; Start 01/03/19 at 02:30; Stop 01/03/19 at 02:31; Status DC Dextrose (Dextrose 50%-Water Syringe) 25 gm 1X ONCE IV Last administered on 01/03/19at 02:33; Start 01/03/19 at 02:30; Stop 01/03/19 at 02:31; Status DC Dextrose/Sodium Chloride 1,000 ml @ 125 mls/hr 1X ONCE IV Last administered on 01/03/19at 04:47; Start 01/03/19 at 04:30; Stop 01/03/19 at 12:29; Status DC Ceftriaxone Sodium (Rocephin) 1 gm 1X ONCE IVP Last administered on 01/03/19 04:43; Start 01/03/19 at 04:45; Stop 01/03/19 at 04:46; Status DC Dextrose (Dextrose 50%-Water Syringe) 25 gm 1X ONCE IV Last administered on 01/03/19at 04:25; Start 01/03/19 at 04:30; Stop 01/03/19 at 04:33; Status DC Fentanyl Citrate (Fentanyl 2ml Vial) 50 mcg PRN Q2HR PRN IV pain Last adminis tered on 01/04/19at 09:56; Start 01/03/19 at 05:15 Dextrose (Dextrose 50%-Water Syringe) 12.5 gm PRN Q15MIN PRN IV SEE COMMENTS [facility] administered on 01/04/19at 04:04; Start 01/03/19 at 08:45 Sodium Chloride 500 ml @ 500 mls/hr 1X ONCE IV Last administered on 01/03/19at 08:11; Start 01/03/19 at 08:45; Stop 01/03/19 at 09:44; Status DC Alprazolam (Xanax) 1 mg PRN TID PRN PO ANXIETY Last administered on 01/03/19at 22:01; Start 01/03/19 at 14:00 Pantoprazole Sodium (Protonix) 40 mg DAILYAC PO Last administered on 01/04/19at 05:29; Start 01/03/19 at 14:30 Dextrose/Sodium Chloride 1,000 ml @ 125 mls/hr Q8HRS IV Last administered on 01/04/19at 07:08; Start 01/03/19 at 15:00 Morphine Sulfate (Morphine Sulfate) 4 mg PRN Q2HR PRN IV PAIN; Start 01/04/19 at 04:00; Status Cancel Ondansetron HCl (Zofran) 4 mg PRN Q8HRS PRN IV NAUSEA/VOMITING; Start 01/04/19 at 04:00; Status Cancel Sodium Chloride 1,000 ml @ 75 mls/hr [id number] IV ; Start 01/04/19 at 04:00; Stop 01/04/19 at 04:27; Status DC Active Scripts Active Reported Pristiq Er (Desvenlafaxine Succinate) 50 Mg Tab.er.24h 50 Mg PO DAILY Black Cohosh 540 Mg Capsule 540 Mg PO DAILY Amitiza (Lubiprostone) 8 Mcg Capsule 8 Mcg PO DAILY Pristiq Er (Desvenlafaxine Succinate) 50 Mg Tab.er.24h 1 Tab PO DAILY Alprazolam 0.5 Mg Tablet 1 Mg PO PRN TID PRN Trazodone Hcl 100 Mg Tablet 1 Tab PO QHS Gabapentin (Gabapentin) 300 Mg Capsule 300 Mg PO HS Protonix (Pantoprazole Sodium) 20 Mg Tablet.dr 40 Mg PO DAILY Vitals/I & O Vital Sign - Last 24 Hours 01/03/19 01/03/19 01/03/19 01/03/19 10:41 11:00 13:35 14:10 Temp 97.8 97.8 Pulse 102 Resp 16 B/P (MAP) 114/74 (87) Pulse Ox 96 O2 Delivery Room Air Room Air Room Air 01/03/19 01/03/19 01/03/19 01/03/19 15:00 15:39 17:48 19:00 Temp 98.8 98.2 98.8 98.2 Pulse 92 69 Resp 16 16 B/P (MAP) 121/81 (94) 115/71 (86) Pulse Ox 97 96 96 94 O2 Delivery Room Air Room Air Room Air Room Air 01/03/19 01/03/19 01/03/19 01/04/19 20:00 20:46 23:00 00:15 Temp 98.9 98.9 Pulse 92 Resp 16 B/P (MAP) 102/70 (81) Pulse Ox 97 O2 Delivery Room Air Room Air Room Air Room Air 01/04/19 01/04/19 01/04/19 01/04/19 02:47 03:00 05:30 06:00 Temp 98.4 98.4 Pulse 88 Resp 16 B/P (MAP) 112/71 (85) Pulse Ox 91 O2 Delivery Room Air Room Air Room Air Room Air 01/04/19 01/04/19 01/04/19 07:00 07:43 09:56 Temp 98.6 98.6 Pulse 103 Resp 18 B/P (MAP) 112/70 (84) Pulse Ox 96 O2 Delivery Room Air Room Air Room Air Intake and Output 01/03/19 01/03/19 01/04/19 14:59 22:59 06:59 Intake Total 1000 ml Balance 1000 ml SOFIA ASKEW MD January 04, 2019 10:30
[2019-01-04 11:00] VITALS: BP 116/68
--- NOTE | 2019-01-04 11:52 | NUR ---
SW following for discharge planning. Discussed with RN, pt from home alone. RN advised no SW needs. SW will continue to follow.
[2019-01-04 15:00] VITALS: BP 115/69
[2019-01-04 19:25] VITALS: BP 98/61
[2019-01-04] MEDS: ALPRAZolam 1 MG TABLET PO PRN (21:46)
[2019-01-04 23:26] VITALS: BP 90/53
[2019-01-05] MEDS: fentaNYL PF VIAL 100 MCG/2 ML VIAL IV PRN ×8 (00:14→22:03)
[2019-01-05] MEDS: IV DEXTROSE 5 %-0.45 % NACL 1,000 ML IV SCH ×3 (02:56→14:26)
[2019-01-05 03:02] VITALS: BP 92/62
[2019-01-05] MEDS: PANTOPRAZOLE 40 MG TABLET.DR. PO SCH (06:14)
[2019-01-05 07:00] VITALS: BP 109/72
[2019-01-05 07:11] LABS: CALCIUM 9.2 mg/dL (8.5-10.1); CREATININE 0.8 mg/dL (0.6-1.0); GFR 80.3; POTASSIUM 3.5 mmol/L (3.5-5.1)
--- NOTE | 2019-01-05 09:21 | NUR ---
IP: Notified nurse of previous adm stool culture results of E.coli shigella and to make sure physician sees on rounding.
--- NOTE | 2019-01-05 10:14 | PDOC ---
PROGRESS NOTES History of Present Illness History of Present Illness VTE Prophylaxis Ordered VTE Prophylaxis Devices: Yes VTE Pharmacological Prophylaxi: Yes Assessment/Plan Assessment/Plan Symptomatic hypoglycemia - on D5 reduce rate to 75 cc /hr . Monitor blood glucose closely still low this AM at 65 Abdominal pain - with transaminitis last week side effect of semaglutide. HTN - cont home meds GERD - cont PPI Anxiety/depression - cont home meds DM2 - will need alternative therapy, Obesity - BMI 32, counseled on weight loss HOLD ALL Glucose lowering agents dvt prophylaxis hold all herbal supplements hold all antidepressants SERUM INSULIN LEVEL pending increase protein intake 33 min pt exam, chart review, > 50% of time spent with exam, chart review, pt care coordination Vitals Vitals Vital Signs Date Time Temp Pulse Resp B/P (MAP) Pulse Ox O2 Delivery O2 Flow Rate FiO2 01/05/19 09:34 Room Air 01/05/19 07:00 97.7 96 18 109/72 (84) 99 97.7 Physical Exam General: Alert, Oriented X3, Cooperative, mild distress Heart: Regular rate, Normal S1, Normal S2 Lungs: Clear Abdomen: Normal bowel sounds, Soft, No hepatosplenomegaly Extremities: No clubbing, No cyanosis Skin: No rashes, No breakdown Labs LABS RECD: 01/03/[address]: RENAY SKY MD SOURCE: VOID ENTR: 01/03/[address]: JANET FULLERP-C SPDESC: ORDERED: URINE CULTURE Procedure Result --------- URINE CULTURE Final Final report URINE CULTURE RES 1 Final No growth Performed at: DA - [facility] [address], [place], [place] [id number] [employer]: KE Brody MD, Phone: [phone] Laboratory Tests Test 01/04/19 14:24 01/04/19 16:45 01/04/19 18:15 01/04/19 20:26 Glucose (Fingerstick) 96 mg/dL (70-99) 83 mg/dL (70-99) 78 mg/dL (70-99) 118 mg/dL (70-99) Test 01/04/19 22:14 01/05/19 00:10 01/05/19 02:35 01/05/19 04:06 Glucose (Fingerstick) 116 mg/dL (70-99) 115 mg/dL (70-99) 81 mg/dL (70-99) 79 mg/dL (70-99) Test 01/05/19 04:38 01/05/19 06:17 01/05/19 07:42 Sodium Level 139 mmol/L (136-145) Potassium Level 3.5 mmol/L (3.5-5.1) Chloride Level 102 mmol/L (98-107) Carbon Dioxide Level 29 mmol/L (21-32) Anion Gap 8 (6-14) Blood Urea Nitrogen 12 mg/dL (7-20) Creatinine 0.8 mg/dL (0.6-1.0) Estimated GFR (Cockcroft-Gault) 80.3 Glucose Level 100 mg/dL (70-99) Calcium Level 9.2 mg/dL (8.5-10.1) Glucose (Fingerstick) 105 mg/dL (70-99) 107 mg/dL (70-99) Comment Review of Relevant I have reviewed the following items sharda (where applicable) has been applied. Labs Laboratory Tests Test 01/03/19 10:33 01/03/19 15:46 01/03/19 16:59 01/03/19 17:37 Glucose (Fingerstick) 54 mg/dL (70-99) 72 mg/dL (70-99) 57 mg/dL (70-99) 66 mg/dL (70-99) Test 01/03/19 18:19 01/03/19 20:55 01/03/19 22:16 01/03/19 22:47 Glucose (Fingerstick) 96 mg/dL (70-99) 52 mg/dL (70-99) 115 mg/dL (70-99) 69 mg/dL (70-99) Test 01/04/19 00:11 01/04/19 00:50 01/04/19 03:05 01/04/19 04:22 Glucose (Fingerstick) 41 mg/dL (70-99) 145 mg/dL (70-99) 63 mg/dL (70-99) 124 mg/dL (70-99) Test 01/04/19 04:50 01/04/19 06:12 01/04/19 07:34 01/04/19 14:24 Sodium Level 141 mmol/L (136-145) Potassium Level 3.6 mmol/L (3.5-5.1) Chloride Level 105 mmol/L (98-107) Carbon Dioxide Level 28 mmol/L (21-32) Anion Gap 8 (6-14) Blood Urea Nitrogen 9 mg/dL (7-20) Creatinine 0.7 mg/dL (0.6-1.0) Estimated GFR (Cockcroft-Gault) 93.6 Glucose Level 96 mg/dL (70-99) Calcium Level 9.4 mg/dL (8.5-10.1) Glucose (Fingerstick) 75 mg/dL (70-99) 130 mg/dL (70-99) 96 mg/dL (70-99) Test 01/04/19 16:45 01/04/19 18:15 01/04/19 20:26 01/04/19 22:14 Glucose (Fingerstick) 83 mg/dL (70-99) 78 mg/dL (70-99) 118 mg/dL (70-99) 116 mg/dL (70-99) Test 01/05/19 00:10 01/05/19 02:35 01/05/19 04:06 01/05/19 04:38 Glucose (Fingerstick) 115 mg/dL (70-99) 81 mg/dL (70-99) 79 mg/dL (70-99) Sodium Level 139 mmol/L (136-145) Potassium Level 3.5 mmol/L (3.5-5.1) Chloride Level 102 mmol/L (98-107) Carbon Dioxide Level 29 mmol/L (21-32) Anion Gap 8 (6-14) Blood Urea Nitrogen 12 mg/dL (7-20) Creatinine 0.8 mg/dL (0.6-1.0) Estimated GFR (Cockcroft-Gault) 80.3 Glucose Level 100 mg/dL (70-99) Calcium Level 9.2 mg/dL (8.5-10.1) Test 01/05/19 06:17 01/05/19 07:42 Glucose (Fingerstick) 105 mg/dL (70-99) 107 mg/dL (70-99) Laboratory Tests Test 01/04/19 14:24 01/04/19 16:45 01/04/19 18:15 01/04/19 20:26 Glucose (Fingerstick) 96 mg/dL (70-99) 83 mg/dL (70-99) 78 mg/dL (70-99) 118 mg/dL (70-99) Test 01/04/19 22:14 01/05/19 00:10 01/05/19 02:35 01/05/19 04:06 Glucose (Fingerstick) 116 mg/dL (70-99) 115 mg/dL (70-99) 81 mg/dL (70-99) 79 mg/dL (70-99) Test 01/05/19 04:38 01/05/19 06:17 01/05/19 07:42 Sodium Level 139 mmol/L (136-145) Potassium Level 3.5 mmol/L (3.5-5.1) Chloride Level 102 mmol/L (98-107) Carbon Dioxide Level 29 mmol/L (21-32) Anion Gap 8 (6-14) Blood Urea Nitrogen 12 mg/dL (7-20) Creatinine 0.8 mg/dL (0.6-1.0) Estimated GFR (Cockcroft-Gault) 80.3 Glucose Level 100 mg/dL (70-99) Calcium Level 9.2 mg/dL (8.5-10.1) Glucose (Fingerstick) 105 mg/dL (70-99) 107 mg/dL (70-99) Microbiology 01/03/19 Urine Culture - Final, Complete 01/03/19 Urine Culture Result 1 (TRINITY) - Final, Complete Medications Current Medications Sodium Chloride 500 ml @ 500 mls/hr 1X ONCE IV Last administered on 01/03/19 02:30; Start 01/03/19 at 02:30; Stop 01/03/19 at 03:29; Status DC Fentanyl Citrate (Fentanyl 2ml Vial) 50 mcg 1X ONCE IV Last administered on 01/03/19 02:34; Start 01/03/19 at 02:30; Stop 01/03/19 at 02:31; Status DC Multi-Ingredient Mouthwash/Gargle (Gi Cocktail) 20 ml 1X ONCE SWSW Last administered on 01/03/19 02:34; Start 01/03/19 at 02:30; Stop 01/03/19 at 02:31; Status DC Dextrose (Dextrose 50%-Water Syringe) 25 gm 1X ONCE IV Last administered on 01/03/19 02:33; Start 01/03/19 at 02:30; Stop 01/03/19 at 02:31; Status DC Dextrose/Sodium Chloride 1,000 ml @ 125 mls/hr 1X ONCE IV Last administered on 01/03/19at 04:47; Start 01/03/19 at 04:30; Stop 01/03/19 at 12:29; Status DC Ceftriaxone Sodium (Rocephin) 1 gm 1X ONCE IVP Last administered on 01/03/19 04:43; Start 01/03/19 at 04:45; Stop 01/03/19 at 04:46; Status DC Dextrose (Dextrose 50%-Water Syringe) 25 gm 1X ONCE IV Last administered on 01/03/19 04:25; Start 01/03/19 at 04:30; Stop 01/03/19 at 04:33; Status DC Fentanyl Citrate (Fentanyl 2ml Vial) 50 mcg PRN Q2HR PRN IV pain Last administered on 01/05/19 08:58; Start 01/03/19 at 05:15 Dextrose (Dextrose 50%-Water Syringe) 12.5 gm PRN Q15MIN PRN IV SEE COMMENTS Last administered on 01/04/19at 04:04; Start 01/03/19 at 08:45 Sodium Chloride 500 ml @ 500 mls/hr 1X ONCE IV Last administered on 01/03/19at 08:11; Start 01/03/19 at 08:45; Stop 01/03/19 at 09:44; Status DC Alprazolam (Xanax) 1 mg PRN TID PRN PO ANXIETY Last administered on 01/04/19at 21:46; Start 01/03/19 at 14:00 Pantoprazole Sodium (Protonix) 40 mg DAILYAC PO Last administered on 01/05/19at 06:14; Start 01/03/19 at 14:30 Dextrose/Sodium Chloride 1,000 ml @ 125 mls/hr Q8HRS IV Last administered on 01/04/19at 07:08; Start 01/03/19 at 15:00; Stop 01/04/19 at 12:46; Status DC Morphine Sulfate (Morphine Sulfate) 4 mg PRN Q2HR PRN IV PAIN; Start 01/04/19 at 04:00; Status Cancel Ondansetron HCl (Zofran) 4 mg PRN Q8HRS PRN IV NAUSEA/VOMITING; Start 01/04/19 at 04:00; Status Cancel Sodium Chloride 1,000 ml @ 75 mls/hr [id number] IV ; Start 01/04/19 at 04:00; Stop 01/04/19 at 04:27; Status DC Dextrose/Sodium Chloride 1,000 ml @ 125 mls/hr Q8H IV Last administered on 01/05/19at 02:56; Start 01/04/19 at 13:00 Active Scripts Active Reported Pristiq Er (Desvenlafaxine Succinate) 50 Mg Tab.er.24h 50 Mg PO DAILY Black Cohosh 540 Mg Capsule 540 Mg PO DAILY Amitiza (Lubiprostone) 8 Mcg Capsule 8 Mcg PO DAILY Pristiq Er (Desvenlafaxine Succinate) 50 Mg Tab.er.24h 1 Tab PO DAILY Alprazolam 0.5 Mg Tablet 1 Mg PO PRN TID PRN Trazodone Hcl 100 Mg Tablet 1 Tab PO QHS Gabapentin (Gabapentin) 300 Mg Capsule 300 Mg PO HS Protonix (Pantoprazole Sodium) 20 Mg Tablet.dr 40 Mg PO DAILY Vitals/I & O Vital Sign - Last 24 Hours 01/04/19 01/04/19 01/04/19 01/04/19 11:00 12:20 14:32 15:00 Temp 98.3 98.1 98.3 98.1 Pulse 107 96 Resp 18 20 B/P (MAP) 116/68 (84) 115/69 (84) Pulse Ox 96 98 O2 Delivery Room Air Room Air Room Air Room Air 01/04/19 01/04/19 01/04/19 01/04/19 17:08 19:25 19:34 20:00 Temp 98.9 98.9 Pulse 99 Resp 18 B/P (MAP) 98/61 (73) Pulse Ox 95 O2 Delivery Room Air Room Air Room Air Room Air 01/04/19 01/04/19 01/05/19 01/05/19 22:01 23:26 00:14 02:55 Temp 98.7 98.7 Pulse 95 Resp 16 B/P (MAP) 90/53 (65) Pulse Ox 95 O2 Delivery Room Air Room Air Room Air Room Air 01/05/19 01/05/19 01/05/19 01/05/19 03:02 06:15 07:00 07:30 Temp 98.5 97.7 98.5 97.7 Pulse 100 96 Resp 18 18 B/P (MAP) 92/62 (72) 109/72 (84) Pulse Ox 92 99 O2 Delivery Room Air Room Air Room Air Room Air 01/05/19 01/05/19 08:58 09:34 O2 Delivery Room Air Room Air Intake and Output 01/04/19 01/04/19 01/05/19 15:00 23:00 07:00 Intake Total 320 ml 480 ml 1780 ml Output Total 2 ml Balance 320 ml 478 ml 1780 ml SOFIA ASKEW MD January 05, 2019 10:14
--- NOTE | 2019-01-05 10:44 | NUR ---
SW following for discharge planning. Discussed with RN, pt from home alone. RN advised no SW needs. SW will continue to follow.
[2019-01-05 11:00] VITALS: BP 100/67
--- NOTE | 2019-01-05 14:15 | PDOC ---
Subjective: Subjective: Please see GI consult from 6 days ago. Back with hypoglycemia. GI asked to see for "possible insulinoma." Has LUQ discomfort - fairly constant, can be sharp, sometimes worse after eating but is eating well. Diarrhea has improved. Objective: Vital Signs: Vital Signs Date Time Temp Pulse Resp B/P (MAP) Pulse Ox O2 Delivery O2 Flow Rate FiO2 01/05/19 12:28 Room Air 01/05/19 11:00 98.0 102 18 100/67 (78) 97 98.0 Labs: Laboratory Tests Test 01/04/19 14:24 01/04/19 16:45 01/04/19 18:15 01/04/19 20:26 Glucose (Fingerstick) 96 mg/dL 83 mg/dL 78 mg/dL 118 mg/dL Test 01/04/19 22:14 01/05/19 00:10 01/05/19 02:35 01/05/19 04:06 Glucose (Fingerstick) 116 mg/dL 115 mg/dL 81 mg/dL 79 mg/dL Test 01/05/19 04:38 01/05/19 06:17 01/05/19 07:42 01/05/19 10:19 Sodium Level 139 mmol/L Potassium Level 3.5 mmol/L Chloride Level 102 mmol/L Carbon Dioxide Level 29 mmol/L Anion Gap 8 Blood Urea Nitrogen 12 mg/dL Creatinine 0.8 mg/dL Estimated GFR (Cockcroft-Gault) 80.3 Glucose Level 100 mg/dL Calcium Level 9.2 mg/dL Free Thyroxine 1.02 ng/dL Glucose (Fingerstick) 105 mg/dL 107 mg/dL 65 mg/dL Test 01/05/19 11:49 01/05/19 14:06 Glucose (Fingerstick) 92 mg/dL 114 mg/dL URINE CULTURE Final Final report URINE CULTURE RES 1 Final No growth STOOL CULTURE Final Final report STOOL CULT RES 1 Final Comment No Salmonella or Shigella recovered. CAMPY Final Final report CAMPY RES 1 Final Comment No Campylobacter species isolated. Performed at: - [facility] [address], [place], [place] [id number] Can Line Operator: KE Brody MD, Phone: [phone] SHIGA TOXIN Final Positive Imaging: CXR 01/03 IMPRESSION: No acute cardiopulmonary abnormality is detected. CT A/P w/ IV contrast 12/29/18 IMPRESSION: 1. No significant acute abnormality is identified, no CT evidence of acute appendicitis. There is some retained stool greater in the region of rectosigmoid colon. 2. 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 CT A/P w/o contrast 08/2018 IMPRESSION: 1. Gastric distention. 2. Myolipoma left adrenal gland 3. No abdominal or pelvic mass or other acute finding noted. 4. No bowel obstruction. CT A/P w/ IV contrast 05/2018 Impression: 1. There is no CT evidence of acute appendicitis, no significant inflammatory change. There is retained stool in the colon. 2. There is stable likely myelolipoma of the left adrenal gland. There is likely hepatic steatosis. There is again hepatomegaly. 3. There is a small ventral fat-containing hernia just above the umbilicus. CT A/P w/o contrast 05/2018 Impression: No evidence of urolithiasis or obstructive uropathy. CT A/P w/ IV contrast 02/2018 IMPRESSION: 1. No acute abnormality of abdomen or pelvis. Normal appendix. 2. Fatty infiltration of the liver. 3. Small myelolipoma of the left adrenal gland, unchanged from prior study. 4. Status post cholecystectomy and hysterectomy. CT A/P w/o contrast 05/2015 IMPRESSION No acute abnormality within the abdomen and pelvis. Mild subcutaneous bruising upper anterior left abdomen. Chronic findings. PE: GEN: NAD - walking around room LUNGS: CTAB HEART: RRR ABD: NABS, S/ND, LUQ tenderness tracking under left ribs toward left flank NEURO/PSYCH: A & O 3 A/P: Hypoglycemia, DM LUQ discomfort - chronic, numerous CTs as above GERD - on PPI, EGD 2014 H/o constipation but recently had diarrhea (now improved) - recent stool cx + Shiga toxin CRC screen, h/o polyps - UTD (2017) S/p cholecystectomy PHILLIPS NSAID use -- Reviewed w/ Dr. Khanna - needs outpt endocrinology workup C and S peptide, MRI, etc. Insulin level on 01/03 was elevated (26.6), note ordered again. Okay to take Cipro w/ recent stool culture results. Will also check fasting a.m. Cortisol. ZELALEM TANNER January 05, 2019 14:15 TIKI KHANNA MD January 05, 2019 14:41
[2019-01-05] MEDS: CIPROFLOXACIN HCL 250 MG TABLET. PO SCH ×2 (14:26→21:30)
[2019-01-05 15:00] VITALS: BP 98/55
[2019-01-05] MEDS: DICYCLOMINE HCL 10 MG CAPSULE PO PRN (18:20)
[2019-01-05 19:00] VITALS: BP 116/74
[2019-01-05 19:12] LABS: AMPHETAMINE/METHAMPHETAMINE NEG (NEG); BARBITURATES NEG (NEG); BENZODIAZEPINES POS (NEG); CANNABINOIDS NEG (NEG); COCAINE NEG (NEG); METHADONE NEG (NEG); OPIATES NEG (NEG); PHENCYCLIDINE NEG (NEG)
[2019-01-05] MEDS: ALPRAZolam 1 MG TABLET PO PRN (21:30)
[2019-01-05 23:00] VITALS: BP 116/77
[2019-01-06] MEDS: fentaNYL PF VIAL 100 MCG/2 ML VIAL IV PRN ×6 (00:24→14:08)
[2019-01-06 03:00] VITALS: BP 93/58
[2019-01-06 04:42] LABS: BASO # 0.1 x10^3/uL (0.0-0.2); BASO % 1 % (0-3); EOS # 0.2 x10^3/uL (0.0-0.7); EOS % 2 % (0-3); HEMATOCRIT 41.7 % (36.0-47.0); LYMPH # 2.6 x10^3/uL (1.0-4.8); LYMPH % 30 % (24-48); MEAN CORPUSCULAR HEMOGLOBIN 29 pg (25-35); MEAN CORPUSCULAR HGB CONC 34 g/dL (31-37); MEAN CORPUSCULAR VOLUME 86 fL (79-100); MONO # 0.6 x10^3/uL (0.0-1.1); MONO % 7 % (0-9); NEUT # 5.2 x10^3uL (1.8-7.7); NEUT % 60 % (31-73); PLATELET COUNT 210 x10^3/uL (140-400); RED BLOOD COUNT 4.85 x10^6/uL (3.50-5.40); RED CELL DISTRIBUTION WIDTH 15.3 % (11.5-14.5); WHITE BLOOD COUNT 8.6 x10^3/uL (4.0-11.0)
[2019-01-06 04:59] LABS: ALBUMIN 3.4 g/dL (3.4-5.0); ALBUMIN/GLOBULIN RATIO 0.9 (1.0-1.7); CALCIUM 9.7 mg/dL (8.5-10.1); CREATININE 0.7 mg/dL (0.6-1.0); GFR 93.6; POTASSIUM 3.8 mmol/L (3.5-5.1); TOTAL BILIRUBIN 0.5 mg/dL (0.2-1.0); TOTAL PROTEIN 7.1 g/dL (6.4-8.2)
[2019-01-06] MEDS: IV DEXTROSE 5 %-0.45 % NACL 1,000 ML IV SCH (05:38)
[2019-01-06] MEDS: PANTOPRAZOLE 40 MG TABLET.DR. PO SCH (06:37)
[2019-01-06 07:00] VITALS: BP 115/73
[2019-01-06] MEDS: CIPROFLOXACIN HCL 250 MG TABLET. PO SCH (08:33)
[2019-01-06] MEDS: DICYCLOMINE HCL 10 MG CAPSULE PO PRN ×2 (08:33→14:08)
--- NOTE | 2019-01-06 10:10 | PDOC ---
[employer] PROGRESS NOTE Chief Complaint Chief Complaint Symptomatic hypoglycemia- adverse effect of home medication DM2 HTN GERD Anxiety/depression Obesity History of Present Illness History of Present Illness Patient seen and examined She states having been frequently hospitalized for the same issue Patient is feeling well and was eager to go home BS checked in the room was 122 She did complain of some abdominal pain and requested to be sent home on Bentyl Vitals Vitals Vital Signs Date Time Temp Pulse Resp B/P (MAP) Pulse Ox O2 Delivery O2 Flow Rate FiO2 01/06/19 09:28 Room Air 01/06/19 07:00 98.1 103 16 115/73 (87) 98 98.1 Physical Exam General: Alert, Oriented X3, Cooperative, mild distress Heart: Regular rate, Normal S1, Normal S2 Lungs: Clear Abdomen: Normal bowel sounds, Soft, No hepatosplenomegaly Extremities: No clubbing, No cyanosis Skin: No rashes, No breakdown Labs LABS Laboratory Tests Test 01/05/19 10:19 01/05/19 11:45 01/05/19 11:49 01/05/19 14:06 Glucose (Fingerstick) 65 mg/dL (70-99) 92 mg/dL (70-99) 114 mg/dL (70-99) Tumor Marker HCG 3 mIU/mL (.) Test 01/05/19 16:18 01/05/19 18:24 01/05/19 18:30 01/05/19 20:27 Glucose (Fingerstick) 128 mg/dL (70-99) 124 mg/dL (70-99) 96 mg/dL (70-99) Urine Opiates Screen Neg (NEG) Urine Methadone Screen Neg (NEG) Urine Barbiturates Neg (NEG) Urine Phencyclidine Screen Neg (NEG) Urine Amphetamine/Methamphetamine Neg (NEG) Urine Benzodiazepines Screen Pos (NEG) Urine Cocaine Screen Neg (NEG) Urine Cannabinoids Screen Neg (NEG) Urine Ethyl Alcohol Neg (NEG) Test 01/05/19 23:19 01/06/19 03:17 01/06/19 03:35 Glucose (Fingerstick) 92 mg/dL (70-99) 84 mg/dL (70-99) White Blood Count 8.6 x10^3/uL (4.0-11.0) Red Blood Count 4.85 x10^6/uL (3.50-5.40) Hemoglobin 14.0 g/dL (12.0-15.5) Hematocrit 41.7 % (36.0-47.0) Mean Corpuscular Volume 86 fL (79-100) Mean Corpuscular Hemoglobin 29 pg (25-35) Mean Corpuscular Hemoglobin Concent 34 g/dL (31-37) Red Cell Distribution Width 15.3 % (11.5-14.5) Platelet Count 210 x10^3/uL (140-400) Neutrophils (%) (Auto) 60 % (31-73) Lymphocytes (%) (Auto) 30 % (24-48) Monocytes (%) (Auto) 7 % (0-9) Eosinophils (%) (Auto) 2 % (0-3) Basophils (%) (Auto) 1 % (0-3) Neutrophils # (Auto) 5.2 x10^3uL (1.8-7.7) Lymphocytes # (Auto) 2.6 x10^3/uL (1.0-4.8) Monocytes # (Auto) 0.6 x10^3/uL (0.0-1.1) Eosinophils # (Auto) 0.2 x10^3/uL (0.0-0.7) Basophils # (Auto) 0.1 x10^3/uL (0.0-0.2) Sodium Level 142 mmol/L (136-145) Potassium Level 3.8 mmol/L (3.5-5.1) Chloride Level 104 mmol/L (98-107) Carbon Dioxide Level 31 mmol/L (21-32) Anion Gap 7 (6-14) Blood Urea Nitrogen 12 mg/dL (7-20) Creatinine 0.7 mg/dL (0.6-1.0) Estimated GFR (Cockcroft-Gault) 93.6 BUN/Creatinine Ratio 17 (6-20) Glucose Level 79 mg/dL (70-99) Calcium Level 9.7 mg/dL (8.5-10.1) Total Bilirubin 0.5 mg/dL (0.2-1.0) Aspartate Amino Transf (AST/SGOT) 49 U/L (15-37) Alanine Aminotransferase (ALT/SGPT) 103 U/L (14-59) Alkaline Phosphatase 96 U/L (46-116) Total Protein 7.1 g/dL (6.4-8.2) Albumin 3.4 g/dL (3.4-5.0) Albumin/Globulin Ratio 0.9 (1.0-1.7) Cortisol AM Sample 4.9 ug/dL (4.3-22.4) Review of Systems Review of Systems Patient admits to abdominal pain Patient denies N/V Assessment and Plan Assessmemt and Plan Assessment: Symptomatic hypoglycemia- adverse effect of home medication DM2 Abdominal pain HTN GERD Anxiety/depression Obesity Plan: Stop Ozempic, continue other home diabetic medications Follow up with PCP in one week Bentyl 10 mg QID Home meds DVT prophylaxis Probable discharge to home today Comment Review of Relevant I have reviewed the following items sharda (where applicable) has been applied. Labs Laboratory Tests Test 01/04/19 14:24 01/04/19 16:45 01/04/19 18:15 01/04/19 20:26 Glucose (Fingerstick) 96 mg/dL (70-99) 83 mg/dL (70-99) 78 mg/dL (70-99) 118 mg/dL (70-99) Test 01/04/19 22:14 01/05/19 00:10 01/05/19 02:35 01/05/19 04:06 Glucose (Fingerstick) 116 mg/dL (70-99) 115 mg/dL (70-99) 81 mg/dL (70-99) 79 mg/dL (70-99) Test 01/05/19 04:38 01/05/19 06:17 01/05/19 07:42 01/05/19 10:19 Sodium Level 139 mmol/L (136-145) Potassium Level 3.5 mmol/L (3.5-5.1) Chloride Level 102 mmol/L (98-107) Carbon Dioxide Level 29 mmol/L (21-32) Anion Gap 8 (6-14) Blood Urea Nitrogen 12 mg/dL (7-20) Creatinine 0.8 mg/dL (0.6-1.0) Estimated GFR (Cockcroft-Gault) 80.3 Glucose Level 100 mg/dL (70-99) Insulin Level 29.2 uIU/mL (2.6-24.9) Calcium Level 9.2 mg/dL (8.5-10.1) Free Thyroxine 1.02 ng/dL (0.76-1.46) Glucose (Fingerstick) 105 mg/dL (70-99) 107 mg/dL (70-99) 65 mg/dL (70-99) Test 01/05/19 11:45 01/05/19 11:49 01/05/19 14:06 01/05/19 16:18 Tumor Marker HCG 3 mIU/mL (.) Glucose (Fingerstick) 92 mg/dL (70-99) 114 mg/dL (70-99) 128 mg/dL (70-99) Test 01/05/19 18:24 01/05/19 18:30 01/05/19 20:27 01/05/19 23:19 Glucose (Fingerstick) 124 mg/dL (70-99) 96 mg/dL (70-99) 92 mg/dL (70-99) Urine Opiates Screen Neg (NEG) Urine Methadone Screen Neg (NEG) Urine Barbiturates Neg (NEG) Urine Phencyclidine Screen Neg (NEG) Urine Amphetamine/Methamphetamine Neg (NEG) Urine Benzodiazepines Screen Pos (NEG) Urine Cocaine Screen Neg (NEG) Urine Cannabinoids Screen Neg (NEG) Urine Ethyl Alcohol Neg (NEG) Test 01/06/19 03:17 01/06/19 03:35 Glucose (Fingerstick) 84 mg/dL (70-99) White Blood Count 8.6 x10^3/uL (4.0-11.0) Red Blood Count 4.85 x10^6/uL (3.50-5.40) Hemoglobin 14.0 g/dL (12.0-15.5) Hematocrit 41.7 % (36.0-47.0) Mean Corpuscular Volume 86 fL (79-100) Mean Corpuscular Hemoglobin 29 pg (25-35) Mean Corpuscular Hemoglobin Concent 34 g/dL (31-37) Red Cell Distribution Width 15.3 % (11.5-14.5) Platelet Count 210 x10^3/uL (140-400) Neutrophils (%) (Auto) 60 % (31-73) Lymphocytes (%) (Auto) 30 % (24-48) Monocytes (%) (Auto) 7 % (0-9) Eosinophils (%) (Auto) 2 % (0-3) Basophils (%) (Auto) 1 % (0-3) Neutrophils # (Auto) 5.2 x10^3uL (1.8-7.7) Lymphocytes # (Auto) 2.6 x10^3/uL (1.0-4.8) Monocytes # (Auto) 0.6 x10^3/uL (0.0-1.1) Eosinophils # (Auto) 0.2 x10^3/uL (0.0-0.7) Basophils # (Auto) 0.1 x10^3/uL (0.0-0.2) Sodium Level 142 mmol/L (136-145) Potassium Level 3.8 mmol/L (3.5-5.1) Chloride Level 104 mmol/L (98-107) Carbon Dioxide Level 31 mmol/L (21-32) Anion Gap 7 (6-14) Blood Urea Nitrogen 12 mg/dL (7-20) Creatinine 0.7 mg/dL (0.6-1.0) Estimated GFR (Cockcroft-Gault) 93.6 BUN/Creatinine Ratio 17 (6-20) Glucose Level 79 mg/dL (70-99) Calcium Level 9.7 mg/dL (8.5-10.1) Total Bilirubin 0.5 mg/dL (0.2-1.0) Aspartate Amino Transf (AST/SGOT) 49 U/L (15-37) Alanine Aminotransferase (ALT/SGPT) 103 U/L (14-59) Alkaline Phosphatase 96 U/L (46-116) Total Protein 7.1 g/dL (6.4-8.2) Albumin 3.4 g/dL (3.4-5.0) Albumin/Globulin Ratio 0.9 (1.0-1.7) Cortisol AM Sample 4.9 ug/dL (4.3-22.4) Laboratory Tests Test 01/05/19 10:19 01/05/19 11:45 01/05/19 11:49 01/05/19 14:06 Glucose (Fingerstick) 65 mg/dL (70-99) 92 mg/dL (70-99) 114 mg/dL (70-99) Tumor Marker HCG 3 mIU/mL (.) Test 01/05/19 16:18 01/05/19 18:24 01/05/19 18:30 01/05/19 20:27 Glucose (Fingerstick) 128 mg/dL (70-99) 124 mg/dL (70-99) 96 mg/dL (70-99) Urine Opiates Screen Neg (NEG) Urine Methadone Screen Neg (NEG) Urine Barbiturates Neg (NEG) Urine Phencyclidine Screen Neg (NEG) Urine Amphetamine/Methamphetamine Neg (NEG) Urine Benzodiazepines Screen Pos (NEG) Urine Cocaine Screen Neg (NEG) Urine Cannabinoids Screen Neg (NEG) Urine Ethyl Alcohol Neg (NEG) Test 01/05/19 23:19 01/06/19 03:17 01/06/19 03:35 Glucose (Fingerstick) 92 mg/dL (70-99) 84 mg/dL (70-99) White Blood Count 8.6 x10^3/uL (4.0-11.0) Red Blood Count 4.85 x10^6/uL (3.50-5.40) Hemoglobin 14.0 g/dL (12.0-15.5) Hematocrit 41.7 % (36.0-47.0) Mean Corpuscular Volume 86 fL (79-100) Mean Corpuscular Hemoglobin 29 pg (25-35) Mean Corpuscular Hemoglobin Concent 34 g/dL (31-37) Red Cell Distribution Width 15.3 % (11.5-14.5) Platelet Count 210 x10^3/uL (140-400) Neutrophils (%) (Auto) 60 % (31-73) Lymphocytes (%) (Auto) 30 % (24-48) Monocytes (%) (Auto) 7 % (0-9) Eosinophils (%) (Auto) 2 % (0-3) Basophils (%) (Auto) 1 % (0-3) Neutrophils # (Auto) 5.2 x10^3uL (1.8-7.7) Lymphocytes # (Auto) 2.6 x10^3/uL (1.0-4.8) Monocytes # (Auto) 0.6 x10^3/uL (0.0-1.1) Eosinophils # (Auto) 0.2 x10^3/uL (0.0-0.7) Basophils # (Auto) 0.1 x10^3/uL (0.0-0.2) Sodium Level 142 mmol/L (136-145) Potassium Level 3.8 mmol/L (3.5-5.1) Chloride Level 104 mmol/L (98-107) Carbon Dioxide Level 31 mmol/L (21-32) Anion Gap 7 (6-14) Blood Urea Nitrogen 12 mg/dL (7-20) Creatinine 0.7 mg/dL (0.6-1.0) Estimated GFR (Cockcroft-Gault) 93.6 BUN/Creatinine Ratio 17 (6-20) Glucose Level 79 mg/dL (70-99) Calcium Level 9.7 mg/dL (8.5-10.1) Total Bilirubin 0.5 mg/dL (0.2-1.0) Aspartate Amino Transf (AST/SGOT) 49 U/L (15-37) Alanine Aminotransferase (ALT/SGPT) 103 U/L (14-59) Alkaline Phosphatase 96 U/L (46-116) Total Protein 7.1 g/dL (6.4-8.2) Albumin 3.4 g/dL (3.4-5.0) Albumin/Globulin Ratio 0.9 (1.0-1.7) Cortisol AM Sample 4.9 ug/dL (4.3-22.4) Microbiology 01/03/19 Urine Culture - Final, Complete 01/03/19 Urine Culture Result 1 (TRINITY) - Final, Complete Medications Current Medications Sodium Chloride 500 ml @ 500 mls/hr 1X ONCE IV Last administered on 01/03/19at 02:30; Start 01/03/19 at 02:30; Stop 01/03/19 at 03:29; Status DC Fentanyl Citrate (Fentanyl 2ml Vial) 50 mcg 1X ONCE IV Last administered on 01/03/19at 02:34; Start 01/03/19 at 02:30; Stop 01/03/19 at 02:31; Status DC Multi-Ingredient Mouthwash/Gargle (Gi Cocktail) 20 ml 1X ONCE SWSW Last administered on 01/03/19at 02:34; Start 01/03/19 at 02:30; Stop 01/03/19 at 02:31; Status DC Dextrose (Dextrose 50%-Water Syringe) 25 gm 1X ONCE IV Last administered on 01/03/19at 02:33; Start 01/03/19 at 02:30; Stop 01/03/19 at 02:31; Status DC Dextrose/Sodium Chloride 1,000 ml @ 125 mls/hr 1X ONCE IV Last administered on 01/03/19 04:47; Start 01/03/19 at 04:30; Stop 01/03/19 at 12:29; Status DC Ceftriaxone Sodium (Rocephin) 1 gm 1X ONCE IVP Last administered on 01/03/19 04:43; Start 01/03/19 at 04:45; Stop 01/03/19 at 04:46; Status DC Dextrose (Dextrose 50%-Water Syringe) 25 gm 1X ONCE IV Last administered on 01/03/19 04:25; Start 01/03/19 at 04:30; Stop 01/03/19 at 04:33; Status DC Fentanyl Citrate (Fentanyl 2ml Vial) 50 mcg PRN Q2HR PRN IV pain Last administered on 01/06/19 08:33; Start 01/03/19 at 05:15 Dextrose (Dextrose 50%-Water Syringe) 12.5 gm PRN Q15MIN PRN IV SEE COMMENTS Last administered on 01/04/19 04:04; Start 01/03/19 at 08:45 Sodium Chloride 500 ml @ 500 mls/hr 1X ONCE IV Last administered on 01/03/19 08:11; Start 01/03/19 at 08:45; Stop 01/03/19 at 09:44; Status DC Alprazolam (Xanax) 1 mg PRN TID PRN PO ANXIETY Last administered on 01/05/19 21:30; Start 01/03/19 at 14:00 Pantoprazole Sodium (Protonix) 40 mg DAILYAC PO Last administered on 01/06/19 06:37; Start 01/03/19 at 14:30 Dextrose/Sodium Chloride 1,000 ml @ 125 mls/hr Q8HRS IV Last administered on 01/04/19 07:08; Start 01/03/19 at 15:00; Stop 01/04/19 at 12:46; Status DC Morphine Sulfate (Morphine Sulfate) 4 mg PRN Q2HR PRN IV PAIN; Start 01/04/19 at 04:00; Status Cancel Ondansetron HCl (Zofran) 4 mg PRN Q8HRS PRN IV NAUSEA/VOMITING; Start 01/04/19 at 04:00; Status Cancel Sodium Chloride 1,000 ml @ 75 mls/hr [id number] IV ; Start 01/04/19 at 04:00; Stop 01/04/19 at 04:27; Status DC Dextrose/Sodium Chloride 1,000 ml @ 75 mls/hr [id number] IV Last administered on 01/06/19at 05:38; Start 01/04/19 at 13:00 Ciprofloxacin (Cipro) 250 mg BID PO Last administered on 01/06/19at 08:33; Start 01/05/19 at 14:00 Dicyclomine HCl (Bentyl) 10 mg PRN QID PRN PO abd pain Last administered on 01/06/19at 08:33; Start 01/05/19 at 14:30 Active Scripts Active Reported Pristiq Er (Desvenlafaxine Succinate) 50 Mg Tab.er.24h 50 Mg PO DAILY Black Cohosh 540 Mg Capsule 540 Mg PO DAILY Amitiza (Lubiprostone) 8 Mcg Capsule 8 Mcg PO DAILY Pristiq Er (Desvenlafaxine Succinate) 50 Mg Tab.er.24h 1 Tab PO DAILY Alprazolam 0.5 Mg Tablet 1 Mg PO PRN TID PRN Trazodone Hcl 100 Mg Tablet 1 Tab PO QHS Gabapentin (Gabapentin) 300 Mg Capsule 300 Mg PO HS Protonix (Pantoprazole Sodium) 20 Mg Tablet.dr 40 Mg PO DAILY Vitals/I & O Vital Sign - Last 24 Hours 01/05/19 01/05/19 01/05/19 01/05/19 11:00 11:45 14:29 15:00 Temp 98.0 98.4 98.0 98.4 Pulse 102 96 Resp 18 18 B/P (MAP) 100/67 (78) 98/55 (69) Pulse Ox 97 93 O2 Delivery Room Air Room Air Room Air Room Air 01/05/19 01/05/19 01/05/19 01/05/19 18:20 19:00 19:26 22:03 Temp 99.4 99.4 Pulse 102 Resp 18 16 B/P (MAP) 116/74 (88) Pulse Ox 96 O2 Delivery Room Air Room Air Room Air Room Air 01/05/19 01/06/19 01/06/19 01/06/19 23:00 00:24 03:00 03:06 Temp 98.4 98.2 98.4 98.2 Pulse 101 95 Resp 18 16 18 16 B/P (MAP) 116/77 (90) 93/58 (70) Pulse Ox 97 93 O2 Delivery Room Air Room Air Room Air Room Air 01/06/19 01/06/19 01/06/19 01/06/19 05:36 06:06 07:00 08:00 Temp 98.1 98.1 Pulse 103 Resp 16 16 16 B/P (MAP) 115/73 (87) Pulse Ox 98 O2 Delivery Room Air Room Air Room Air 01/06/19 01/06/19 08:33 09:28 O2 Delivery Room Air Room Air Intake and Output 01/05/19 01/05/19 01/06/19 15:00 23:00 07:00 Intake Total 1362.5 ml Balance 1362.5 ml SHAWNA CALI III DO January 06, 2019 10:10
[2019-01-06 11:00] VITALS: BP 112/82
--- NOTE | 2019-01-06 11:19 | NUR ---
SW following for discharge planning. Discussed with RN, pt discharging home today with self care. RN advised no SW needs.
--- NOTE | 2019-01-06 12:24 | PDOC ---
Subjective: Subjective: Tolerating PO. Has tried to establish endocrinology care in the past but wait list too long. Reports foul-smelling belches. Objective: Objective: RN asks if she can discharge. Giardia neg last admission. Vital Signs: Vital Signs Date Time Temp Pulse Resp B/P (MAP) Pulse Ox O2 Delivery O2 Flow Rate FiO2 01/06/19 11:23 Room Air 01/06/19 11:00 98.1 95 16 112/82 (92) 98 98.1 Labs: Laboratory Tests Test 01/05/19 14:06 01/05/19 16:18 01/05/19 18:24 01/05/19 18:30 Glucose (Fingerstick) 114 mg/dL 128 mg/dL 124 mg/dL Urine Opiates Screen Neg Urine Methadone Screen Neg Urine Barbiturates Neg Urine Phencyclidine Screen Neg Urine Amphetamine/Methamphetamine Neg Urine Benzodiazepines Screen Pos Urine Cocaine Screen Neg Urine Cannabinoids Screen Neg Urine Ethyl Alcohol Neg Test 01/05/19 20:27 01/05/19 23:19 01/06/19 03:17 01/06/19 03:35 Glucose (Fingerstick) 96 mg/dL 92 mg/dL 84 mg/dL White Blood Count 8.6 x10^3/uL Red Blood Count 4.85 x10^6/uL Hemoglobin 14.0 g/dL Hematocrit 41.7 % Mean Corpuscular Volume 86 fL Mean Corpuscular Hemoglobin 29 pg Mean Corpuscular Hemoglobin Concent 34 g/dL Red Cell Distribution Width 15.3 % Platelet Count 210 x10^3/uL Neutrophils (%) (Auto) 60 % Lymphocytes (%) (Auto) 30 % Monocytes (%) (Auto) 7 % Eosinophils (%) (Auto) 2 % Basophils (%) (Auto) 1 % Neutrophils # (Auto) 5.2 x10^3uL Lymphocytes # (Auto) 2.6 x10^3/uL Monocytes # (Auto) 0.6 x10^3/uL Eosinophils # (Auto) 0.2 x10^3/uL Basophils # (Auto) 0.1 x10^3/uL Sodium Level 142 mmol/L Potassium Level 3.8 mmol/L Chloride Level 104 mmol/L Carbon Dioxide Level 31 mmol/L Anion Gap 7 Blood Urea Nitrogen 12 mg/dL Creatinine 0.7 mg/dL Estimated GFR (Cockcroft-Gault) 93.6 BUN/Creatinine Ratio 17 Glucose Level 79 mg/dL Calcium Level 9.7 mg/dL Total Bilirubin 0.5 mg/dL Aspartate Amino Transf (AST/SGOT) 49 U/L Alanine Aminotransferase (ALT/SGPT) 103 U/L Alkaline Phosphatase 96 U/L Total Protein 7.1 g/dL Albumin 3.4 g/dL Albumin/Globulin Ratio 0.9 Cortisol AM Sample 4.9 ug/dL PE: GEN: NAD - was on the phone, then eating lunch LUNGS: CTAB HEART: RRR NEURO/PSYCH: A & O 3 A/P: Hypoglycemia, DM Chronic abd discomfort, GERD, belching Recent +Shiga toxin - on atbx per primary, diarrhea has improved/resolved -- Apparently plans to DC. Encouraged follow-up w/ endocrinology. Can follow-up w/ GI re: belching concerns as outpt. ZELALEM TANNER January 06, 2019 12:24
--- NOTE | 2019-01-06 15:13 | NUR ---
Pt discharging home with self care. Discharge instructions and prescriptions discussed. IV removed. Pt ambulated to main entrance and was secured in vehicle with friend.
--- NOTE | 2019-01-07 00:48 | DS ---
DATE OF DISCHARGE: 01/06/2019 ADMISSION DIAGNOSIS: Hypoglycemia. DISCHARGE DIAGNOSIS: Resolving hypoglycemia. HOSPITAL COURSE: The patient is a pleasant 38-year-old female who presented with hypoglycemia. She is on injections of and she also takes Tarceva. Basically, we observed the patient, held her meds, got her sugars under control. This morning, she was about 120 on glucose. Her heart tones were normal. Her lungs were clear. She wanted to go home with plan to discharge and I stopped the above diabetic meds and put her back on sliding scale insulin. DISPOSITION: Home. ACTIVITY: As tolerated. DIET: 1800 calorie ADA. MEDICATIONS: I put her back on sliding scale NovoLog insulin. TOTAL TIME: 32 minutes. SHAWNA CALI DO DR: ELIAS/janett JOB#: [id number] / [id number]
== END 2019-01-06 14:30 | disposition home or self-care (01) | DRG 639 ==
LOC: ER 00:58 → 4 NORTH 04:42
PROVIDERS: ADMIT Internal Medicine; ATTEND Internal Medicine
DX: E11.649 Type 2 diabetes mellitus with hypoglycemia without coma (principal); K76.0 Fatty (change of) liver, not elsewhere classified; I10 Essential (primary) hypertension; K21.9 Gastro-esophageal reflux disease without esophagitis; F32.9 Major depressive disorder, single episode, unspecified; E66.9 Obesity, unspecified; F41.9 Anxiety disorder, unspecified; Z83.3 Family history of diabetes mellitus; Z82.49 Family history of ischemic heart disease and other diseases of the circulatory system; Z90.49 Acquired absence of other specified parts of digestive tract; Z90.710 Acquired absence of both cervix and uterus; Z88.1 Allergy status to other antibiotic agents; Z68.32 Body mass index [BMI] 32.0-32.9, adult; T50.995A Adverse effect of other drugs, medicaments and biological substances, initial encounter
CPT/HCPCS: 36415; 71045; 80048; 80053; 80307; 81001; 82533; 82962; 83525; 83690; 84439; 84484; 84681; 84702; 85025; 87086; 93005; 96361; 96374; 96375; 96376; J0696; J3010; J7040; J7042; 84704; 99285-25

== ENCOUNTER 2019-01-16 23:49 | Inpatient (IN) | payer BC ==
[~2019-01-16] VITALS: Ht 162.6 cm; Wt 82.6 kg
[2019-01-17] VITALS (7 sets, daily range): BP systolic 89–129; BP diastolic 53–81
[2019-01-17] MEDS ORDERED: DEXTROSE 50% 25 GM / 50ML DISP.SYRIN. IV ONE ×2 (00:01)
--- NOTE | 2019-01-17 00:07 | PHYS DOC ---
Past Medical History Past Medical History: Diabetes-Type II, Other Additional Past Medical Histor: NON-ALCHOL RELATED FATTY LIVER, HIDRADENITIS Past Surgical History: Cholecystectomy, Hysterectomy, Tonsillectomy Additional Past Surgical Histo: bilateral ankles, multiple abscess removal, breast reduction, hernia Alcohol Use: Occasionally Drug Use: None Adult General Chief Complaint Chief Complaint: HYPOGLYCEMIA HPI HPI Patient is a 38 year old [f__sex] who presents with [] Review of Systems Review of Systems Constitutional: Denies fever or chills [] Eyes: Denies change in visual acuity, redness, or eye pain [] HENT: Denies nasal congestion or sore throat [] Respiratory: Denies cough or shortness of breath [] Cardiovascular: No additional information not addressed in HPI [] GI: Denies abdominal pain, nausea, vomiting, bloody stools or diarrhea [] : Denies dysuria or hematuria [] Musculoskeletal: Denies back pain or joint pain [] Integument: Denies rash or skin lesions [] Neurologic: Denies headache, focal weakness or sensory changes [] Endocrine: Denies polyuria or polydipsia [] All other systems were reviewed and found to be within normal limits, except as documented in this note. Current Medications Current Medications Current Medications Medications (Trade) Dose Ordered Sig/Taqueria Start Time Stop Time Status Last Admin Dose Admin Dextrose (Dextrose 50%-Water Syringe) 12.5 gm PRN Q15MIN PRN 01/17/19 00:15 UNV Dextrose/Lactated Ringer's 1,000 ml @ 100 mls/hr 1X ONCE 01/17/19 00:15 01/17/19 10:14 01/17/19 00:13 100 MLS/HR Insulin Human Lispro (HumaLOG) 0-5 UNITS TIDWMEALS 01/17/19 08:00 UNV Ondansetron HCl (Zofran) 4 mg PRN Q8HRS PRN 01/17/19 00:15 01/18/19 00:14 Allergies Allergies Allergies Coded Allergies Type Severity Reaction Last Updated Verified levofloxacin Allergy Intermediate Rash 09/27/18 Yes vancomycin Allergy Intermediate Rash 09/27/18 Yes Physical Exam Physical Exam Constitutional: Well developed, well nourished, no acute distress, non-toxic appearance. [] HENT: Normocephalic, atraumatic, bilateral external ears normal, oropharynx moist, no oral exudates, nose normal. [] Eyes: PERRLA, EOMI, conjunctiva normal, no discharge. [] Neck: Normal range of motion, no tenderness, supple, no stridor. [] Cardiovascular:Heart rate regular rhythm, no murmur [] Lungs & Thorax: Bilateral breath sounds clear to auscultation [] Abdomen: Bowel sounds normal, soft, no tenderness, no masses, no pulsatile masses. [] Skin: Warm, dry, no erythema, no rash. [] Back: No tenderness, no CVA tenderness. [] Extremities: No tenderness, no cyanosis, no clubbing, ROM intact, no edema. [] Neurologic: Alert and oriented X 3, normal motor function, normal sensory function, no focal deficits noted. [] Psychologic: Affect normal, judgement normal, mood normal. [] Current Patient Data Vital Signs Vital Signs Date Time Temp Pulse Resp B/P (MAP) Pulse Ox O2 Delivery O2 Flow Rate FiO2 01/16/19 23:50 98.4 109 20 151/85 (107) 98 Room Air 98.4 Lab Values Laboratory Tests Test 01/16/19 23:59 01/17/19 00:01 White Blood Count 13.1 x10^3/uL (4.0-11.0) H Red Blood Count 4.90 x10^6/uL (3.50-5.40) Hemoglobin 14.3 g/dL (12.0-15.5) Hematocrit 42.1 % (36.0-47.0) Mean Corpuscular Volume 86 fL (79-100) Mean Corpuscular Hemoglobin 29 pg (25-35) Mean Corpuscular Hemoglobin Concent 34 g/dL (31-37) Red Cell Distribution Width 15.2 % (11.5-14.5) H Platelet Count 299 x10^3/uL (140-400) Neutrophils (%) (Auto) 61 % (31-73) Lymphocytes (%) (Auto) 33 % (24-48) Monocytes (%) (Auto) 4 % (0-9) Eosinophils (%) (Auto) 1 % (0-3) Basophils (%) (Auto) 0 % (0-3) Neutrophils # (Auto) 8.0 x10^3uL (1.8-7.7) H Lymphocytes # (Auto) 4.3 x10^3/uL (1.0-4.8) Monocytes # (Auto) 0.5 x10^3/uL (0.0-1.1) Eosinophils # (Auto) 0.2 x10^3/uL (0.0-0.7) Basophils # (Auto) 0.0 x10^3/uL (0.0-0.2) Urine Collection Type Unknown Urine Color Yellow Urine Clarity Clear Urine pH 5.5 Urine Specific [place] 1.025 Urine Protein Negative mg/dL (NEG-TRACE) Urine Glucose (UA) Negative mg/dL (NEG) Urine Ketones (Stick) Negative mg/dL (NEG) Urine Blood Negative (NEG) Urine Nitrite Negative (NEG) Urine Bilirubin Negative (NEG) Urine Urobilinogen Dipstick 1.0 mg/dL (0.2 mg/dL) Urine Leukocyte Esterase Small (NEG) Urine RBC Occ /HPF (0-2) Urine WBC 5-10 /HPF (0-4) Urine Squamous Epithelial Cells Mod /LPF Urine Bacteria Moderate /HPF (0-FEW) Urine Mucus Mod /LPF Sodium Level 143 mmol/L (136-145) Potassium Level 3.2 mmol/L (3.5-5.1) L Chloride Level 105 mmol/L (98-107) Carbon Dioxide Level 26 mmol/L (21-32) Anion Gap 12 (6-14) Blood Urea Nitrogen 18 mg/dL (7-20) Creatinine 0.9 mg/dL (0.6-1.0) Estimated GFR (Cockcroft-Gault) 70.1 BUN/Creatinine Ratio 20 (6-20) Glucose Level 32 mg/dL (70-99) *L Calcium Level 9.9 mg/dL (8.5-10.1) Magnesium Level 2.0 mg/dL (1.8-2.4) Total Bilirubin 0.3 mg/dL (0.2-1.0) Aspartate Amino Transferase (AST) 29 U/L (15-37) Alanine Aminotransferase (ALT) 62 U/L (14-59) H Alkaline Phosphatase 102 U/L (46-116) Total Protein 8.0 g/dL (6.4-8.2) Albumin 4.0 g/dL (3.4-5.0) Albumin/Globulin Ratio 1.0 (1.0-1.7) Lipase 202 U/L (73-393) Laboratory Tests 01/16/19 23:59 Laboratory Tests 01/16/19 23:59 EKG EKG [] Radiology/Procedures Radiology/Procedures [] Course & Med Decision Making Course & Med Decision Making Pertinent Labs and Imaging studies reviewed. (See chart for details) [] Dragon Disclaimer Dragon Disclaimer This electronic medical record was generated, in whole or in part, using a voice recognition dictation system. Departure Departure Impression: Primary Impression: Hypoglycemia Additional Impression: Hypokalemia Disposition: ADMITTED INPATIENT Admitting Physician: Other (Riffel) Condition: GUARDED Referrals: JANET FULLER-Frederic (PCP) Critical Care Time Critical care time was 30 minutes which includes time at bedside, spent in discussion of patient's care with specialists and/or family members, with interpretation of laboratory and/or radiological studies and is exclusive of procedures. Problem Qualifiers ANA FULLER DO January 17, 2019 00:07
[2019-01-17 00:12] LABS: BASO % 0 % (0-3); EOS # 0.2 x10^3/uL (0.0-0.7); EOS % 1 % (0-3); HEMATOCRIT 42.1 % (36.0-47.0); HEMOGLOBIN 14.3 g/dL (12.0-15.5); LYMPH # 4.3 x10^3/uL (1.0-4.8); LYMPH % 33 % (24-48); MEAN CORPUSCULAR HEMOGLOBIN 29 pg (25-35); MEAN CORPUSCULAR HGB CONC 34 g/dL (31-37); MEAN CORPUSCULAR VOLUME 86 fL (79-100); MONO # 0.5 x10^3/uL (0.0-1.1); MONO % 4 % (0-9); NEUT % 61 % (31-73); PLATELET COUNT 299 x10^3/uL (140-400); RED CELL DISTRIBUTION WIDTH 15.2 % (11.5-14.5); WHITE BLOOD COUNT 13.1 x10^3/uL (4.0-11.0)
[2019-01-17] MEDS ORDERED: IV DEXTROSE 5%-LACT RINGERS 1,000 ML IV ONE (00:15)
[2019-01-17 00:16] LABS: BILIRUBIN,URINE NEGATIVE (NEG); CLARITY,URINE CLEAR; COLOR,URINE YELLOW; PH,URINE 5.5; PROTEIN,URINE NEGATIVE (NEG-TRACE)
[2019-01-17 00:17] LABS: NITRITE,URINE NEGATIVE (NEG)
[2019-01-17 00:25] LABS: BACTERIA,URINE MODERATE /HPF (0-FEW); RBC,URINE OCC /HPF (0-2); SQUAMOUS EPITHELIAL CELL,UR MOD /LPF
[2019-01-17 00:30] LABS: CALCIUM 9.9 mg/dL (8.5-10.1); CREATININE 0.9 mg/dL (0.6-1.0); GFR 70.1; POTASSIUM 3.2 mmol/L (3.5-5.1); TOTAL BILIRUBIN 0.3 mg/dL (0.2-1.0)
[2019-01-17] MEDS ORDERED: POTASSIUM CHLORIDE 20 MEQ TABLET.ER. PO ONE (00:45)
[2019-01-17] MEDS: fentaNYL PF VIAL 100 MCG/2 ML VIAL IV PRN ×9 (00:48→22:32)
[2019-01-17] MEDS: DEXTROSE 50% 25 GM / 50ML DISP.SYRIN. IV PRN ×10 (01:33→23:08)
[2019-01-17] MEDS: IV DEXTROSE 10% 1,000 ML IV SCH ×3 (01:45→18:23)
[2019-01-17] MEDS: ONDANSETRON PF 4 MG/2 ML VIAL. IV PRN ×3 (01:48→20:05)
--- NOTE | 2019-01-17 04:11 | NUR ---
Patient arrived via wheelchair accompanied by ED staff to room 412. Pt states she feels her sugar is dropping before climbing in bed. Blood sugar was checked and showed 29 at 0104. RN administered 1 amp D50. Pt checked her sugar at 0110 with her freestyle that does not require a stick and it showed 87 and at 0120 it showed 171. At 0143 per our glucometer FS -51, 1/2 amp D50 administered. Re check at 0158 was 82. Jayne RN called Dr. Rodriguez at 0145 to notify him of blood sugars and orders were received for D10 at 75/hr along with accucheck orders. Pts FS checked at 0250 and was 30. 1 amp D50 adm, recheck showed FS at 200. At 0405 finger stick checked and was 53, 1/2 amp D 50 administered follow FS was 120. RN will continue to monitor
[2019-01-17] MEDS: INSULIN LISPRO 300 UNITS/3 ML INSULN.PEN. SQ SCH ×3 (07:59→13:03)
[2019-01-17] MEDS ORDERED: INSULIN LISPRO 300 UNITS/3 ML INSULN.PEN. SQ SCH (08:00)
--- NOTE | 2019-01-17 09:13 | NUR ---
SW following for discharge planning. Discussed with RN, pt here frequently for same reason. Pt is from home. RN advised no SW needs at this time. SW will continue to follow.
--- NOTE | 2019-01-17 12:11 | PDOC1 ---
History and Physical Date of Admission Date of Admission DATE: 01/17/19 TIME: 12:01 Identification/Chief Complaint Chief Complaint low sugars Source Source: Chart review, Patient History of Present Illness History of Present Illness 38 year old with hx of DM since 7 years off insulin therapy who presents with 2- 3 day hx of low sugars. hx of low sugars since 1 year followed by endocrinology. was on metformin but changed to glyburide. med rec not confirmed. unknown last a1c. patient states diet has been stable. has no other complaints, denies chest pain sob nausea vomiting diarrhea. sugars found to be 40s in ED and started on d10 drip. hospitalist called for admission. patient currently has no complaints. Past Medical History Cardiovascular: HTN GI: GERD Psych: Anxiety, Depression Endocrine: Diabetes Past Surgical History Past Surgical History: Cholecystectomy, Hysterectomy Family History Family History: Diabetes, Hypertension Social History ALCOHOL: none Drugs: None Current Problem List Problem List Problems Medical Problems: (1) Hypokalemia Status: Acute Current Medications Current Medications Current Medications Dextrose (Dextrose 50%-Water Syringe) 25 gm 1X ONCE IV Last administered on 01/17/19at 00:00; Start 01/17/19 at 00:00; Stop 01/17/19 at 00:01; Status DC Dextrose (Dextrose 50%-Water Syringe) 25 gm STK-MED ONCE IV ; Start 01/17/19 at 00:01; Stop 01/17/19 at 00:02; Status DC Dextrose/Lactated Ringer's 1,000 ml @ 100 mls/hr 1X ONCE IV Last administered on 01/17/19at 00:13; Start 01/17/19 at 00:15; Stop 01/17/19 at 10:14; Status DC Ondansetron HCl (Zofran) 4 mg PRN Q8HRS PRN IV NAUSEA/VOMITING Last administer ed on 01/17/19at 01:48; Start 01/17/19 at 00:15; Stop 01/18/19 at 00:14 Insulin Human Lispro (HumaLOG) 0-5 UNITS TIDWMEALS SQ ; Start 01/17/19 at 08:00; Stop 01/17/19 at 08:00; Status DC Dextrose (Dextrose 50%-Water Syringe) 12.5 gm PRN Q15MIN PRN IV SEE COMMENTS Last administered on 01/17/19at 08:51; Start 01/17/19 at 00:15 Potassium Chloride (Klor-Con) 40 meq 1X ONCE PO Last administered on 01/17/19at 01:46; Start 01/17/19 at 00:45; Stop 01/17/19 at 00:46; Status DC Fentanyl Citrate (Fentanyl 2ml Vial) 50 mcg PRN Q6HRS PRN IV MODERATE PAIN 4-6 Last administered on 01/17/19at 01:55; Start 01/17/19 at 00:45; Stop 01/17/19 at 06:33; Status DC Insulin Human Lispro (HumaLOG) 0-5 UNITS TIDWMEALS SQ ; Start 01/17/19 at 08:00 Dextrose 1,000 ml @ 100 mls/hr Q10H IV Last administered on 01/17/19at 10:28; Start 01/17/19 at 02:00 Fentanyl Citrate (Fentanyl 2ml Vial) 50 mcg PRN Q2HR PRN IV PAIN Last administered on 01/17/19at 08:54; Start 01/17/19 at 06:45 Active Scripts Active Reported Black Cohosh 540 Mg Capsule 540 Mg PO DAILY Amitiza (Lubiprostone) 8 Mcg Capsule 8 Mcg PO DAILY Alprazolam 0.5 Mg Tablet 1 Mg PO PRN TID PRN Trazodone Hcl 100 Mg Tablet 1 Tab PO QHS Gabapentin (Gabapentin) 300 Mg Capsule 300 Mg PO HS Protonix (Pantoprazole Sodium) 20 Mg Tablet.dr 40 Mg PO DAILY Allergies Allergies: Coded Allergies: levofloxacin (Verified Allergy, Intermediate, Rash, 09/27/18) vancomycin (Verified Allergy, Intermediate, Rash, 09/27/18) ROS Review of System CONSTITUTIONAL: No fever or chills EYES: No recent changes SKIN: No rash or itching CARDIOVASCULAR: No chest pain, syncope, palpitations, or edema RESPIRATORY: No SOB or cough GASTROINTESTINAL: No nausea, vomiting or abdominal pain NEUROLOGICAL: No headaches or weakness ENDOCRINE: No cold or heat intolerance GENITOURINARY: No urgency or frequency of urination MUSCULOSKELETAL: No back pain or joint pain LYMPHATICS: No enlarged lymph nodes PSYCHIATRIC: No anxiety or depression Physical Exam Physical Exam GENERAL: No apparent distress. Alert and oriented. HEENT: Head normocephalic, atraumatic. NECK: Supple LUNGS: Clear to auscultation. HEART: RRR, S1, S2 present, pulses intact ABDOMEN: Soft, positive bowel sounds. EXTREMITIES: No cyanosis or edema. NEUROLOGIC: Normal speech, normal tone PSYCHIATRIC: Normal affect, normal mood. SKIN: No ulceration. Vitals Vitals Vital Signs Date Time Temp Pulse Resp B/P (MAP) Pulse Ox O2 Delivery O2 Flow Rate FiO2 01/17/19 11:00 97.9 75 18 103/61 (75) 95 Room Air 97.9 Labs Labs Laboratory Tests Test 01/16/19 23:59 01/17/19 00:01 01/17/19 01:04 01/17/19 01:43 White Blood Count 13.1 x10^3/uL (4.0-11.0) Red Blood Count 4.90 x10^6/uL (3.50-5.40) Hemoglobin 14.3 g/dL (12.0-15.5) Hematocrit 42.1 % (36.0-47.0) Mean Corpuscular Volume 86 fL (79-100) Mean Corpuscular Hemoglobin 29 pg (25-35) Mean Corpuscular Hemoglobin Concent 34 g/dL (31-37) Red Cell Distribution Width 15.2 % (11.5-14.5) Platelet Count 299 x10^3/uL (140-400) Neutrophils (%) (Auto) 61 % (31-73) Lymphocytes (%) (Auto) 33 % (24-48) Monocytes (%) (Auto) 4 % (0-9) Eosinophils (%) (Auto) 1 % (0-3) Basophils (%) (Auto) 0 % (0-3) Neutrophils # (Auto) 8.0 x10^3uL (1.8-7.7) Lymphocytes # (Auto) 4.3 x10^3/uL (1.0-4.8) Monocytes # (Auto) 0.5 x10^3/uL (0.0-1.1) Eosinophils # (Auto) 0.2 x10^3/uL (0.0-0.7) Basophils # (Auto) 0.0 x10^3/uL (0.0-0.2) Urine Collection Type Unknown Urine Color Yellow Urine Clarity Clear Urine pH 5.5 Urine Specific [place] 1.025 Urine Protein Negative mg/dL (NEG-TRACE) Urine Glucose (UA) Negative mg/dL (NEG) Urine Ketones (Stick) Negative mg/dL (NEG) Urine Blood Negative (NEG) Urine Nitrite Negative (NEG) Urine Bilirubin Negative (NEG) Urine Urobilinogen Dipstick 1.0 mg/dL (0.2 mg/dL) Urine Leukocyte Esterase Small (NEG) Urine RBC Occ /HPF (0-2) Urine WBC 5-10 /HPF (0-4) Urine Squamous Epithelial Cells Mod /LPF Urine Bacteria Moderate /HPF (0-FEW) Urine Mucus Mod /LPF Sodium Level 143 mmol/L (136-145) Potassium Level 3.2 mmol/L (3.5-5.1) Chloride Level 105 mmol/L (98-107) Carbon Dioxide Level 26 mmol/L (21-32) Anion Gap 12 (6-14) Blood Urea Nitrogen 18 mg/dL (7-20) Creatinine 0.9 mg/dL (0.6-1.0) Estimated GFR (Cockcroft-Gault) 70.1 BUN/Creatinine Ratio 20 (6-20) Glucose Level 32 mg/dL (70-99) Glucose (Fingerstick) 26 mg/dL (70-99) 29 mg/dL (70-99) 51 mg/dL (70-99) Calcium Level 9.9 mg/dL (8.5-10.1) Magnesium Level 2.0 mg/dL (1.8-2.4) Total Bilirubin 0.3 mg/dL (0.2-1.0) Aspartate Amino Transf (AST/SGOT) 29 U/L (15-37) Alanine Aminotransferase (ALT/SGPT) 62 U/L (14-59) Alkaline Phosphatase 102 U/L (46-116) Total Protein 8.0 g/dL (6.4-8.2) Albumin 4.0 g/dL (3.4-5.0) Albumin/Globulin Ratio 1.0 (1.0-1.7) Lipase 202 U/L (73-393) Test 01/17/19 01:58 01/17/19 02:51 01/17/19 03:04 01/17/19 04:07 Glucose (Fingerstick) 82 mg/dL (70-99) 30 mg/dL (70-99) 200 mg/dL (70-99) 53 mg/dL (70-99) Test 01/17/19 04:21 01/17/19 04:56 01/17/19 06:07 01/17/19 06:24 Glucose (Fingerstick) 120 mg/dL (70-99) 87 mg/dL (70-99) 56 mg/dL (70-99) 108 mg/dL (70-99) Test 01/17/19 07:35 01/17/19 07:56 01/17/19 08:42 01/17/19 09:26 Glucose (Fingerstick) 39 mg/dL (70-99) 79 mg/dL (70-99) 42 mg/dL (70-99) 86 mg/dL (70-99) Test 01/17/19 10:35 01/17/19 11:31 Glucose (Fingerstick) 83 mg/dL (70-99) 72 mg/dL (70-99) Laboratory Tests Test 01/16/19 23:59 01/17/19 00:01 01/17/19 01:04 01/17/19 01:43 White Blood Count 13.1 x10^3/uL (4.0-11.0) Red Blood Count 4.90 x10^6/uL (3.50-5.40) Hemoglobin 14.3 g/dL (12.0-15.5) Hematocrit 42.1 % (36.0-47.0) Mean Corpuscular Volume 86 fL (79-100) Mean Corpuscular Hemoglobin 29 pg (25-35) Mean Corpuscular Hemoglobin Concent 34 g/dL (31-37) Red Cell Distribution Width 15.2 % (11.5-14.5) Platelet Count 299 x10^3/uL (140-400) Neutrophils (%) (Auto) 61 % (31-73) Lymphocytes (%) (Auto) 33 % (24-48) Monocytes (%) (Auto) 4 % (0-9) Eosinophils (%) (Auto) 1 % (0-3) Basophils (%) (Auto) 0 % (0-3) Neutrophils # (Auto) 8.0 x10^3uL (1.8-7.7) Lymphocytes # (Auto) 4.3 x10^3/uL (1.0-4.8) Monocytes # (Auto) 0.5 x10^3/uL (0.0-1.1) Eosinophils # (Auto) 0.2 x10^3/uL (0.0-0.7) Basophils # (Auto) 0.0 x10^3/uL (0.0-0.2) Urine Collection Type Unknown Urine Color Yellow Urine Clarity Clear Urine pH 5.5 Urine Specific [place] 1.025 Urine Protein Negative mg/dL (NEG-TRACE) Urine Glucose (UA) Negative mg/dL (NEG) Urine Ketones (Stick) Negative mg/dL (NEG) Urine Blood Negative (NEG) Urine Nitrite Negative (NEG) Urine Bilirubin Negative (NEG) Urine Urobilinogen Dipstick 1.0 mg/dL (0.2 mg/dL) Urine Leukocyte Esterase Small (NEG) Urine RBC Occ /HPF (0-2) Urine WBC 5-10 /HPF (0-4) Urine Squamous Epithelial Cells Mod /LPF Urine Bacteria Moderate /HPF (0-FEW) Urine Mucus Mod /LPF Sodium Level 143 mmol/L (136-145) Potassium Level 3.2 mmol/L (3.5-5.1) Chloride Level 105 mmol/L (98-107) Carbon Dioxide Level 26 mmol/L (21-32) Anion Gap 12 (6-14) Blood Urea Nitrogen 18 mg/dL (7-20) Creatinine 0.9 mg/dL (0.6-1.0) Estimated GFR (Cockcroft-Gault) 70.1 BUN/Creatinine Ratio 20 (6-20) Glucose Level 32 mg/dL (70-99) Glucose (Fingerstick) 26 mg/dL (70-99) 29 mg/dL (70-99) 51 mg/dL (70-99) Calcium Level 9.9 mg/dL (8.5-10.1) Magnesium Level 2.0 mg/dL (1.8-2.4) Total Bilirubin 0.3 mg/dL (0.2-1.0) Aspartate Amino Transf (AST/SGOT) 29 U/L (15-37) Alanine Aminotransferase (ALT/SGPT) 62 U/L (14-59) Alkaline Phosphatase 102 U/L (46-116) Total Protein 8.0 g/dL (6.4-8.2) Albumin 4.0 g/dL (3.4-5.0) Albumin/Globulin Ratio 1.0 (1.0-1.7) Lipase 202 U/L (73-393) Test 01/17/19 01:58 01/17/19 02:51 01/17/19 03:04 01/17/19 04:07 Glucose (Fingerstick) 82 mg/dL (70-99) 30 mg/dL (70-99) 200 mg/dL (70-99) 53 mg/dL (70-99) Test 01/17/19 04:21 01/17/19 04:56 01/17/19 06:07 01/17/19 06:24 Glucose (Fingerstick) 120 mg/dL (70-99) 87 mg/dL (70-99) 56 mg/dL (70-99) 108 mg/dL (70-99) Test 01/17/19 07:35 01/17/19 07:56 01/17/19 08:42 01/17/19 09:26 Glucose (Fingerstick) 39 mg/dL (70-99) 79 mg/dL (70-99) 42 mg/dL (70-99) 86 mg/dL (70-99) Test 01/17/19 10:35 01/17/19 11:31 Glucose (Fingerstick) 83 mg/dL (70-99) 72 mg/dL (70-99) VTE Prophylaxis Ordered VTE Prophylaxis Devices: No VTE Pharmacological Prophylaxi: Yes Assessment/Plan Assessment/Plan ASSESSMENT Symptomatic Hypoglycemia in setting of known DM Hypotension, not septic PLAN admit to tele bed follow sugars q4 hrs hold insulin and DM meds place on D5 sugars improved check c peptide, insulin levels check a1c dvt ppx: ambulatory full code GUSTAVO SOUSA MD January 17, 2019 12:11
[2019-01-17] MEDS ORDERED: ALPRAZolam 1 MG TABLET PO PRN (12:15)
[2019-01-17] MEDS: PANTOPRAZOLE 40 MG TABLET.DR. PO SCH (12:52)
[2019-01-17] MEDS: LUBIPROSTONE 8 MCG CAPSULE PO SCH (12:52)
[2019-01-17] MEDS: GABAPENTIN 300 MG CAPSULE. PO SCH (20:07)
[2019-01-17] MEDS: traZODone 100 MG TABLET. PO SCH (20:07)
[2019-01-18] MEDS: IV DEXTROSE 10% 1,000 ML IV SCH ×2 (00:55→07:59)
[2019-01-18 03:00] VITALS: BP 103/69
[2019-01-18] MEDS: PANTOPRAZOLE 40 MG TABLET.DR. PO SCH (05:11)
[2019-01-18] MEDS: fentaNYL PF VIAL 100 MCG/2 ML VIAL IV PRN ×8 (05:11→22:04)
[2019-01-18] MEDS: INSULIN LISPRO 300 UNITS/3 ML INSULN.PEN. SQ SCH ×2 (06:58→09:24)
[2019-01-18 07:00] VITALS: BP 106/70
[2019-01-18] MEDS: LUBIPROSTONE 8 MCG CAPSULE PO SCH (07:56)
--- NOTE | 2019-01-18 10:30 | NUR ---
SW following for discharge planning. Discussed with RN, pt's blood sugars better today. RN advised no SW needs. SW will continue to follow should any discharge needs arise.
[2019-01-18 11:00] VITALS: BP 108/60
[2019-01-18] MEDS ORDERED: ONDANSETRON PF 4 MG/2 ML VIAL. IV PRN (11:00)
[2019-01-18 11:16] LABS: C-PEPTIDE 4.5 ng/mL (1.1-4.4); INSULIN LEVEL 125.6 uIU/mL (2.6-24.9)
--- NOTE | 2019-01-18 12:40 | PDOC ---
PROGRESS NOTES Chief Complaint Chief Complaint sugars better on d10 drip. states she is not taking any DM meds at home. feels well today. History of Present Illness History of Present Illness ASSESSMENT Symptomatic Hypoglycemia in setting of known DM Hypotension, not septic. resolved PLAN follow sugars q6 hold insulin and DM meds dc d10 drip this afternoon sugars improved check c peptide, insulin levels--pending check a0w--xhbxhlg dvt ppx: ambulatory full code anticipate dc russell if sugars improved. Vitals Vitals Vital Signs Date Time Temp Pulse Resp B/P (MAP) Pulse Ox O2 Delivery O2 Flow Rate FiO2 01/18/19 11:28 95 Room Air 01/18/19 07:00 97.7 73 18 106/70 (82) 97.7 Physical Exam Lungs: Clear Labs LABS Laboratory Tests Test 01/17/19 12:53 01/17/19 13:56 01/17/19 14:27 01/17/19 15:38 Glucose (Fingerstick) 85 mg/dL (70-99) 31 mg/dL (70-99) 107 mg/dL (70-99) 93 mg/dL (70-99) Test 01/17/19 15:52 01/17/19 17:03 01/17/19 17:58 01/17/19 19:04 Glucose (Fingerstick) 94 mg/dL (70-99) 85 mg/dL (70-99) 107 mg/dL (70-99) 75 mg/dL (70-99) Test 01/17/19 19:58 01/17/19 21:04 01/17/19 22:03 01/17/19 23:03 Glucose (Fingerstick) 108 mg/dL (70-99) 76 mg/dL (70-99) 94 mg/dL (70-99) 65 mg/dL (70-99) Test 01/17/19 23:23 01/18/19 00:08 01/18/19 01:10 01/18/19 02:02 Glucose (Fingerstick) 125 mg/dL (70-99) 109 mg/dL (70-99) 99 mg/dL (70-99) 104 mg/dL (70-99) Test 01/18/19 03:04 01/18/19 04:05 01/18/19 05:02 01/18/19 06:54 Glucose (Fingerstick) 155 mg/dL (70-99) 167 mg/dL (70-99) 217 mg/dL (70-99) 267 mg/dL (70-99) Test 01/18/19 09:10 01/18/19 10:55 Glucose (Fingerstick) 203 mg/dL (70-99) 185 mg/dL (70-99) Assessment and Plan Assessmemt and Plan Problems Medical Problems: (1) Hypokalemia Status: Acute Comment Review of Relevant I have reviewed the following items sharda (where applicable) has been applied. Labs Laboratory Tests Test 01/16/19 23:59 01/17/19 00:01 01/17/19 01:04 01/17/19 01:43 White Blood Count 13.1 x10^3/uL (4.0-11.0) Red Blood Count 4.90 x10^6/uL (3.50-5.40) Hemoglobin 14.3 g/dL (12.0-15.5) Hematocrit 42.1 % (36.0-47.0) Mean Corpuscular Volume 86 fL (79-100) Mean Corpuscular Hemoglobin 29 pg (25-35) Mean Corpuscular Hemoglobin Concent 34 g/dL (31-37) Red Cell Distribution Width 15.2 % (11.5-14.5) Platelet Count 299 x10^3/uL (140-400) Neutrophils (%) (Auto) 61 % (31-73) Lymphocytes (%) (Auto) 33 % (24-48) Monocytes (%) (Auto) 4 % (0-9) Eosinophils (%) (Auto) 1 % (0-3) Basophils (%) (Auto) 0 % (0-3) Neutrophils # (Auto) 8.0 x10^3uL (1.8-7.7) Lymphocytes # (Auto) 4.3 x10^3/uL (1.0-4.8) Monocytes # (Auto) 0.5 x10^3/uL (0.0-1.1) Eosinophils # (Auto) 0.2 x10^3/uL (0.0-0.7) Basophils # (Auto) 0.0 x10^3/uL (0.0-0.2) Urine Collection Type Unknown Urine Color Yellow Urine Clarity Clear Urine pH 5.5 Urine Specific [place] 1.025 Urine Protein Negative mg/dL (NEG-TRACE) Urine Glucose (UA) Negative mg/dL (NEG) Urine Ketones (Stick) Negative mg/dL (NEG) Urine Blood Negative (NEG) Urine Nitrite Negative (NEG) Urine Bilirubin Negative (NEG) Urine Urobilinogen Dipstick 1.0 mg/dL (0.2 mg/dL) Urine Leukocyte Esterase Small (NEG) Urine RBC Occ /HPF (0-2) Urine WBC 5-10 /HPF (0-4) Urine Squamous Epithelial Cells Mod /LPF Urine Bacteria Moderate /HPF (0-FEW) Urine Mucus Mod /LPF Sodium Level 143 mmol/L (136-145) Potassium Level 3.2 mmol/L (3.5-5.1) Chloride Level 105 mmol/L (98-107) Carbon Dioxide Level 26 mmol/L (21-32) Anion Gap 12 (6-14) Blood Urea Nitrogen 18 mg/dL (7-20) Creatinine 0.9 mg/dL (0.6-1.0) Estimated GFR (Cockcroft-Gault) 70.1 BUN/Creatinine Ratio 20 (6-20) Glucose Level 32 mg/dL (70-99) Glucose (Fingerstick) 26 mg/dL (70-99) 29 mg/dL (70-99) 51 mg/dL (70-99) Calcium Level 9.9 mg/dL (8.5-10.1) Magnesium Level 2.0 mg/dL (1.8-2.4) Total Bilirubin 0.3 mg/dL (0.2-1.0) Aspartate Amino Transf (AST/SGOT) 29 U/L (15-37) Alanine Aminotransferase (ALT/SGPT) 62 U/L (14-59) Alkaline Phosphatase 102 U/L (46-116) Total Protein 8.0 g/dL (6.4-8.2) Albumin 4.0 g/dL (3.4-5.0) Albumin/Globulin Ratio 1.0 (1.0-1.7) Insulin Level 125.6 uIU/mL (2.6-24.9) C-Peptide 4.5 ng/mL (1.1-4.4) Lipase 202 U/L (73-393) Test 01/17/19 01:58 01/17/19 02:51 01/17/19 03:04 01/17/19 04:07 Glucose (Fingerstick) 82 mg/dL (70-99) 30 mg/dL (70-99) 200 mg/dL (70-99) 53 mg/dL (70-99) Test 01/17/19 04:21 01/17/19 04:56 01/17/19 06:07 01/17/19 06:24 Glucose (Fingerstick) 120 mg/dL (70-99) 87 mg/dL (70-99) 56 mg/dL (70-99) 108 mg/dL (70-99) Test 01/17/19 07:35 01/17/19 07:56 01/17/19 08:42 01/17/19 09:26 Glucose (Fingerstick) 39 mg/dL (70-99) 79 mg/dL (70-99) 42 mg/dL (70-99) 86 mg/dL (70-99) Test 01/17/19 10:35 01/17/19 11:31 01/17/19 12:27 01/17/19 12:53 Glucose (Fingerstick) 83 mg/dL (70-99) 72 mg/dL (70-99) 25 mg/dL (70-99) 85 mg/dL (70-99) Test 01/17/19 13:56 01/17/19 14:27 01/17/19 15:38 01/17/19 15:52 Glucose (Fingerstick) 31 mg/dL (70-99) 107 mg/dL (70-99) 93 mg/dL (70-99) 94 mg/dL (70-99) Test 01/17/19 17:03 01/17/19 17:58 01/17/19 19:04 01/17/19 19:58 Glucose (Fingerstick) 85 mg/dL (70-99) 107 mg/dL (70-99) 75 mg/dL (70-99) 108 mg/dL (70-99) Test 01/17/19 21:04 01/17/19 22:03 01/17/19 23:03 01/17/19 23:23 Glucose (Fingerstick) 76 mg/dL (70-99) 94 mg/dL (70-99) 65 mg/dL (70-99) 125 mg/dL (70-99) Test 01/18/19 00:08 01/18/19 01:10 01/18/19 02:02 01/18/19 03:04 Glucose (Fingerstick) 109 mg/dL (70-99) 99 mg/dL (70-99) 104 mg/dL (70-99) 155 mg/dL (70-99) Test 01/18/19 04:05 01/18/19 05:02 01/18/19 06:54 01/18/19 09:10 Glucose (Fingerstick) 167 mg/dL (70-99) 217 mg/dL (70-99) 267 mg/dL (70-99) 203 mg/dL (70-99) Test 01/18/19 10:55 Glucose (Fingerstick) 185 mg/dL (70-99) Laboratory Tests Test 01/17/19 12:53 01/17/19 13:56 01/17/19 14:27 01/17/19 15:38 Glucose (Fingerstick) 85 mg/dL (70-99) 31 mg/dL (70-99) 107 mg/dL (70-99) 93 mg/dL (70-99) Test 01/17/19 15:52 01/17/19 17:03 01/17/19 17:58 01/17/19 19:04 Glucose (Fingerstick) 94 mg/dL (70-99) 85 mg/dL (70-99) 107 mg/dL (70-99) 75 mg/dL (70-99) Test 01/17/19 19:58 01/17/19 21:04 01/17/19 22:03 01/17/19 23:03 Glucose (Fingerstick) 108 mg/dL (70-99) 76 mg/dL (70-99) 94 mg/dL (70-99) 65 mg/dL (70-99) Test 01/17/19 23:23 01/18/19 00:08 01/18/19 01:10 01/18/19 02:02 Glucose (Fingerstick) 125 mg/dL (70-99) 109 mg/dL (70-99) 99 mg/dL (70-99) 104 mg/dL (70-99) Test 01/18/19 03:04 01/18/19 04:05 01/18/19 05:02 01/18/19 06:54 Glucose (Fingerstick) 155 mg/dL (70-99) 167 mg/dL (70-99) 217 mg/dL (70-99) 267 mg/dL (70-99) Test 01/18/19 09:10 01/18/19 10:55 Glucose (Fingerstick) 203 mg/dL (70-99) 185 mg/dL (70-99) Medications Current Medications Dextrose (Dextrose 50%-Water Syringe) 25 gm 1X ONCE IV Last administered on 01/17/19at 00:00; Start 01/17/19 at 00:00; Stop 01/17/19 at 00:01; Status DC Dextrose (Dextrose 50%-Water Syringe) 25 gm STK-MED ONCE IV ; Start 01/17/19 at 00:01; Stop 01/17/19 at 00:02; Status DC Dextrose/Lactated Ringer's 1,000 ml @ 100 mls/hr 1X ONCE IV Last administered on 01/17/19at 00:13; Start 01/17/19 at 00:15; Stop 01/17/19 at 10:14; Status DC Ondansetron HCl (Zofran) 4 mg PRN Q8HRS PRN IV NAUSEA/VOMITING Last administered on 01/17/19at 20:05; Start 01/17/19 at 00:15; Stop 01/18/19 at 00:15; Status DC Insulin Human Lispro (HumaLOG) 0-5 UNITS TIDWMEALS SQ ; Start 01/17/19 at 08:00; Stop 01/17/19 at 08:00; Status DC Dextrose (Dextrose 50%-Water Syringe) 12.5 gm PRN Q15MIN PRN IV SEE COMMENTS Last administered on 01/17/19at 23:08; Start 01/17/19 at 00:15 Potassium Chloride (Klor-Con) 40 meq 1X ONCE PO Last administered on 01/17/19at 01:46; Start 01/17/19 at 00:45; Stop 01/17/19 at 00:46; Status DC Fentanyl Citrate (Fentanyl 2ml Vial) 50 mcg PRN Q6HRS PRN IV MODERATE PAIN 4-6 Last administered on 01/17/19at 01:55; Start 01/17/19 at 00:45; Stop 01/17/19 at 06:33; Status DC Insulin Human Lispro (HumaLOG) 0-5 UNITS TIDWMEALS SQ ; Start 01/17/19 at 08:00 Dextrose 1,000 ml @ 50 mls/hr Q20H IV Last administered on 01/18/19at 07:59; Start 01/17/19 at 02:00; Stop 01/18/19 at 11:04; Status DC Fentanyl Citrate (Fentanyl 2ml Vial) 50 mcg PRN Q2HR PRN IV PAIN Last administered on 01/18/19at 11:08; Start 01/17/19 at 06:45 Alprazolam (Xanax) 1 mg PRN TID PRN PO ANXIETY; Start 01/17/19 at 12:15 Gabapentin (Neurontin) 300 mg HS PO Last administered on 01/17/19at 20:07; Start 01/17/19 at 21:00 Lubiprostone (Amitiza) 8 mcg DAILY PO Last administered on 01/18/19at 07:56; Start 01/17/19 at 13:00 Trazodone HCl (Desyrel) 100 mg QHS PO Last administered on 01/17/19at 20:07; Start 01/17/19 at 21:00 Pantoprazole Sodium (Protonix) 40 mg DAILYAC PO Last administered on 01/18/19at 05:11; Start 01/17/19 at 13:00 Ondansetron HCl (Zofran) 4 mg PRN Q8HRS PRN IV NAUSEA/VOMITING; Start 01/18/19 at 11:00 Active Scripts Active Reported Black [place] 540 Mg Capsule 540 Mg PO DAILY Amitiza (Lubiprostone) 8 Mcg Capsule 8 Mcg PO DAILY Alprazolam 0.5 Mg Tablet 1 Mg PO PRN TID PRN Trazodone Hcl 100 Mg Tablet 1 Tab PO QHS Gabapentin (Gabapentin) 300 Mg Capsule 300 Mg PO HS Protonix (Pantoprazole Sodium) 20 Mg Tablet.dr 40 Mg PO DAILY Vitals/I & O Vital Sign - Last 24 Hours 01/17/19 01/17/19 01/17/19 01/17/19 14:10 15:00 16:43 19:00 Temp 98.0 97.9 98.0 97.9 Pulse 88 77 Resp 18 18 B/P (MAP) 117/69 (85) 129/81 (97) Pulse Ox 95 94 94 98 O2 Delivery Room Air Room Air Room Air Room Air 01/17/19 01/17/19 01/17/19 01/17/19 19:01 20:00 22:32 23:00 Temp 97.7 97.7 Pulse 83 Resp 20 18 18 B/P (MAP) 104/56 (72) Pulse Ox 94 94 95 O2 Delivery Room Air Room Air Room Air Room Air 01/18/19 01/18/19 01/18/19 01/18/19 03:00 05:11 05:41 07:00 Temp 97.7 97.7 97.7 97.7 Pulse 89 73 Resp 18 18 B/P (MAP) 103/69 (80) 106/70 (82) Pulse Ox 95 95 98 O2 Delivery Room Air Room Air Room Air 01/18/19 01/18/19 01/18/19 01/18/19 07:15 07:59 11:08 11:28 Pulse Ox 95 95 95 O2 Delivery Room Air Room Air Room Air Room Air Intake and Output 01/17/19 01/17/19 01/18/19 15:00 23:00 07:00 Intake Total 660 ml 720 ml Balance 660 ml 720 ml GUSTAVO SOUSA MD January 18, 2019 12:40
[2019-01-18 13:17] LABS: HEMOGLOBIN A1C 6.3 % (4.8-5.6)
[2019-01-18 15:00] VITALS: BP 117/65
[2019-01-18 19:00] VITALS: BP 124/73
[2019-01-18] MEDS: traZODone 100 MG TABLET. PO SCH (21:23)
[2019-01-18] MEDS: GABAPENTIN 300 MG CAPSULE. PO SCH (21:23)
[2019-01-18 23:00] VITALS: BP 102/54
[2019-01-19 03:00] VITALS: BP 98/57
[2019-01-19] MEDS: fentaNYL PF VIAL 100 MCG/2 ML VIAL IV PRN (06:23)
[2019-01-19] MEDS: PANTOPRAZOLE 40 MG TABLET.DR. PO SCH (06:27)
[2019-01-19 07:15] VITALS: BP 99/54
[2019-01-19] MEDS: INSULIN LISPRO 300 UNITS/3 ML INSULN.PEN. SQ SCH (08:00)
[2019-01-19] MEDS: LUBIPROSTONE 8 MCG CAPSULE PO SCH (09:00)
--- NOTE | 2019-01-19 10:09 | NUR ---
Pt discharging home with self care. Instructions discussed. Pt verbalized understanding. IV removed without complications. VSS. Pt ambulated to ED entrance and was assisted to her care. No further needs at this time.
--- NOTE | 2019-01-19 11:14 | PDOC3 ---
Discharge Summary Visit Information Date of Admission: January 17, 2019 Date of Discharge: January 19, 2019 Final Diagnosis Problems Medical Problems: (1) Hypokalemia (2) Hypoglycemia Status: Acute Brief Hospital Course Allergies Allergies Coded Allergies Type Severity Reaction Last Updated Verified levofloxacin Allergy Intermediate Rash 09/27/18 Yes vancomycin Allergy Intermediate Rash 09/27/18 Yes Vital Signs Vital Signs Date Time Temp Pulse Resp B/P (MAP) Pulse Ox O2 Delivery O2 Flow Rate FiO2 01/19/19 08:00 Room Air 01/19/19 07:15 98.2 74 20 99/54 (69) 97 98.2 Lab Results Laboratory Tests Test 01/17/19 11:31 01/17/19 12:27 01/17/19 12:53 01/17/19 13:56 Glucose (Fingerstick) 72 mg/dL (70-99) 25 mg/dL (70-99) 85 mg/dL (70-99) 31 mg/dL (70-99) Test 01/17/19 14:27 01/17/19 15:38 01/17/19 15:52 01/17/19 17:03 Glucose (Fingerstick) 107 mg/dL (70-99) 93 mg/dL (70-99) 94 mg/dL (70-99) 85 mg/dL (70-99) Test 01/17/19 17:58 01/17/19 19:04 01/17/19 19:58 01/17/19 21:04 Glucose (Fingerstick) 107 mg/dL (70-99) 75 mg/dL (70-99) 108 mg/dL (70-99) 76 mg/dL (70-99) Test 01/17/19 22:03 01/17/19 23:03 01/17/19 23:23 01/18/19 00:08 Glucose (Fingerstick) 94 mg/dL (70-99) 65 mg/dL (70-99) 125 mg/dL (70-99) 109 mg/dL (70-99) Test 01/18/19 01:10 01/18/19 02:02 01/18/19 03:04 01/18/19 04:05 Glucose (Fingerstick) 99 mg/dL (70-99) 104 mg/dL (70-99) 155 mg/dL (70-99) 167 mg/dL (70-99) Test 01/18/19 05:02 01/18/19 06:54 01/18/19 09:10 01/18/19 10:55 Glucose (Fingerstick) 217 mg/dL (70-99) 267 mg/dL (70-99) 203 mg/dL (70-99) 185 mg/dL (70-99) Test 01/18/19 17:06 01/18/19 22:53 01/19/19 05:56 01/19/19 07:47 Glucose (Fingerstick) 101 mg/dL (70-99) 147 mg/dL (70-99) 104 mg/dL (70-99) 96 mg/dL (70-99) Laboratory Tests Test 01/18/19 17:06 01/18/19 22:53 01/19/19 05:56 01/19/19 07:47 Glucose (Fingerstick) 101 mg/dL (70-99) 147 mg/dL (70-99) 104 mg/dL (70-99) 96 mg/dL (70-99) Brief Hospital Course 38 year old with hx of DM since 7 years off insulin therapy who presents with 2- 3 day hx of low sugars. hx of low sugars since 1 year. was on metformin but changed to glyburide. has not taken glyburide. patient states diet has been stable. has no other complaints, denies chest pain sob nausea vomiting diarrhea. sugars found to be 40s in ED and started on d10 drip. hospitalist called for admission. patient currently has no complaints. admitted to hospital for symptomatic hypoglycemia and placed on D10 drip for 48 hrs. D10 drip weaned off and sugars stable. a1c checked and 6.3%. insulin level 125, c peptide 4.5. CT abdomen done 12/29 and no evidence of insulinoma. patient asymptomatic at time of discharge. will hold oral DM meds as a1c 6.3% only. advised her to follow up with endocrine. patient discharged in stable condition. Discharge Information Condition at Discharge: Stable Follow Up: Weeks (PCP in 1 week. scheduled endo follow up in January 2019) Disposition/Orders: D/C to Home Scheduled Black Cohosh (Black Cohosh) 540 Mg Capsule, 540 MG PO DAILY for hot flashes, (Reported) Entered as Reported by: SALVADOR LUO on 09/24/18 1046 Last Action: HELD on 01/17/191201 by GUSTAVO SOUSA MD Gabapentin (Gabapentin ) 300 Mg Capsule, 300 MG PO HS for NEUROGENIC PAIN, (Reported) Entered as Reported by: LOUIS MACIEL on 09/07/18 100 Last Action: Continued on 01/17/191201 by GUSTAVO SOUSA MD Lubiprostone (Amitiza) 8 Mcg Capsule, 8 MCG PO DAILY for stomach issues, (Reported) Entered as Reported by: SALVADOR LUO on 09/24/18 104 Last Action: Continued on 01/17/191201 by GUSTAVO SOUSA MD Pantoprazole Sodium (Protonix) 20 Mg Tablet.dr, 40 MG PO DAILY for acid indigestion, (Reported) Entered as Reported by: JULIA EDGAR on 06/17/18 0015 Last Action: Converted on 01/17/191201 by GUSTAVO SOUSA MD Trazodone Hcl (Trazodone Hcl) 100 Mg Tablet, 1 TAB PO QHS for SLEEP, #30 Ref 2 (Reported) Entered as Reported by: LOUIS MACIEL on 09/07/181000 Last Action: Continued on 01/17/191201 by GUSTAVO SOUSA MD Scheduled PRN Alprazolam (Alprazolam) 0.5 Mg Tablet, 1 MG PO PRN TID PRN for ANXIETY, #90 (Reported) Entered as Reported by: LOUIS MACIEL on 09/07/181000 Last Action: Continued on 01/17/191201 by MD MERRY CUBA MANEESH MD January 19, 2019 11:14
== END 2019-01-19 10:00 | disposition home or self-care (01) | DRG 639 ==
LOC: ER 23:49 → 4 NORTH 01-17 01:29
PROVIDERS: ADMIT Internal Medicine; ATTEND Internal Medicine
DX: E11.649 Type 2 diabetes mellitus with hypoglycemia without coma (principal); E87.6 Hypokalemia; I10 Essential (primary) hypertension; K76.0 Fatty (change of) liver, not elsewhere classified; K21.9 Gastro-esophageal reflux disease without esophagitis; F32.9 Major depressive disorder, single episode, unspecified; F41.9 Anxiety disorder, unspecified; I95.9 Hypotension, unspecified; Z90.710 Acquired absence of both cervix and uterus; Z90.49 Acquired absence of other specified parts of digestive tract; Z88.1 Allergy status to other antibiotic agents; Z82.49 Family history of ischemic heart disease and other diseases of the circulatory system; Z83.3 Family history of diabetes mellitus
CPT/HCPCS: 36415; 80053; 81001; 82962; 83036; 83525; 83690; 83735; 84681; 85025; 87086; 96365; 96366; J1815; J2405; J3010; J7042; 99285-25

== ENCOUNTER 2019-01-21 21:39 | Inpatient (IN) | payer BC ==
[~2019-01-21] VITALS: Ht 162.6 cm; Wt 79.9 kg
[2019-01-21 22:24] LABS: BASO # 0.1 x10^3/uL (0.0-0.2); BASO % 1 % (0-3); EOS # 0.1 x10^3/uL (0.0-0.7); EOS % 1 % (0-3); HEMATOCRIT 42.2 % (36.0-47.0); HEMOGLOBIN 14.2 g/dL (12.0-15.5); LYMPH % 21 % (24-48); MEAN CORPUSCULAR HEMOGLOBIN 29 pg (25-35); MEAN CORPUSCULAR HGB CONC 34 g/dL (31-37); MEAN CORPUSCULAR VOLUME 85 fL (79-100); MONO # 0.8 x10^3/uL (0.0-1.1); MONO % 6 % (0-9); NEUT # 9.8 x10^3uL (1.8-7.7); NEUT % 71 % (31-73); PLATELET COUNT 268 x10^3/uL (140-400); RED BLOOD COUNT 4.97 x10^6/uL (3.50-5.40); RED CELL DISTRIBUTION WIDTH 15.1 % (11.5-14.5); WHITE BLOOD COUNT 13.8 x10^3/uL (4.0-11.0)
[2019-01-21] MEDS ORDERED: DEXTROSE ORAL GEL 15 GM TUBE. ONE (22:24)
[2019-01-21 22:31] LABS: BILIRUBIN,URINE SMALL (NEG); CLARITY,URINE CLEAR; COLOR,URINE YELLOW; NITRITE,URINE NEGATIVE (NEG); PH,URINE 5.5; PROTEIN,URINE NEGATIVE (NEG-TRACE)
[2019-01-21 22:45] LABS: BACTERIA,URINE FEW /HPF (0-FEW); RBC,URINE 0 /HPF (0-2); SQUAMOUS EPITHELIAL CELL,UR OCC /LPF
[2019-01-21 22:56] LABS: ALBUMIN 4.1 g/dL (3.4-5.0); CALCIUM 9.9 mg/dL (8.5-10.1); CREATININE 0.7 mg/dL (0.6-1.0); GFR 93.6; POTASSIUM 3.3 mmol/L (3.5-5.1); TOTAL BILIRUBIN 0.5 mg/dL (0.2-1.0); TOTAL PROTEIN 8.3 g/dL (6.4-8.2)
[2019-01-21] MEDS ORDERED: IV DEXTROSE 5%-LACT RINGERS 1,000 ML IV ONE (23:00)
[2019-01-21] MEDS ORDERED: DEXTROSE ORAL GEL 15 GM TUBE. PO ONE (23:00)
[2019-01-21] MEDS ORDERED: ONDANSETRON PF 4 MG/2 ML VIAL. IV ONE (23:00)
--- NOTE | 2019-01-21 23:21 | PHYS DOC ---
Past Medical History Past Medical History: Diabetes-Type II, Pancreatitis, Other Additional Past Medical Histor: NON-ALCHOL RELATED FATTY LIVER, HIDRADENITIS (ROXANN DEWITT APRN) Past Surgical History: Cholecystectomy, Hysterectomy, Tonsillectomy Additional Past Surgical Histo: bilateral ankles, multiple abscess removal, breast reduction, hernia (ROXANN DEWITT APRN) Alcohol Use: None Drug Use: None (ROXANN DEWITT APRN) Adult General Chief Complaint Chief Complaint: HYPOGLYCEMIA HPI HPI Patient is a 38 year old female with history of diabetes type 2 who presents to the ED today complaining of hypoglycemia. Patient states she's been having issues with her blood sugars dropping for the last 1 month. She has been seen by the PCP, they took her off metformin. She states her blood sugars keep dropping. She states this evening her blood glucose was also low as 46 at home. She took glucose tablets, and came to the ED. She states she's eaten so much food in effort to keep her sugars up that her stomach hurts. She states she was admitted a couple days ago for hypoglycemia. (ROXANN DEWITT APRN) Review of Systems Review of Systems Constitutional: Denies fever or chills [] Eyes: Denies change in visual acuity, redness, or eye pain [] HENT: Denies nasal congestion or sore throat [] Respiratory: Denies cough or shortness of breath [] Cardiovascular: No additional information not addressed in HPI [] GI: Reports left upper quadrant abdominal pain nausea, denies vomiting, bloody stools or diarrhea [] : Denies dysuria or hematuria [] Musculoskeletal: Denies back pain or joint pain [] Integument: Denies rash or skin lesions [] Neurologic: Denies headache, focal weakness or sensory changes [] Endocrine: Reports hypoglycemia All other systems were reviewed and found to be within normal limits, except as documented in this note. (ROXANN DEWITT APRN) Current Medications Current Medications Current Medications Medications (Trade) Dose Ordered Sig/Taqueria Start Time Stop Time Status Last Admin Dose Admin Glucose (Insta-Glucose) 15 gm STK-MED ONCE 01/21/19 22:24 01/21/19 22:25 DC (IVETT MAGALLON MD) Allergies Allergies Allergies Coded Allergies Type Severity Reaction Last Updated Verified levofloxacin Allergy Intermediate Rash 09/27/18 Yes vancomycin Allergy Intermediate Rash 09/27/18 Yes (IVETT MAGALLON MD) Physical Exam Physical Exam Constitutional: Well developed, well nourished, no acute distress, non-toxic appearance. [] HENT: Normocephalic, atraumatic, bilateral external ears normal, oropharynx moist, no oral exudates, nose normal. [] Eyes: PERRLA, EOMI, conjunctiva normal, no discharge. [] Neck: Normal range of motion, no tenderness, supple, no stridor. [] Cardiovascular:Heart rate regular rhythm, no murmur [] Lungs & Thorax: Bilateral breath sounds clear to auscultation [] Abdomen: Bowel sounds normal, soft, no tenderness, no masses, no pulsatile masses. [] Skin: Warm, dry, no erythema, no rash. [] Back: No tenderness, no CVA tenderness. [] Extremities: No tenderness, no cyanosis, no clubbing, ROM intact, no edema. [] Neurologic: Alert and oriented X 3, normal motor function, normal sensory function, no focal deficits noted. [] Psychologic: Affect normal, judgement normal, mood normal. [] (ROXANN DEWITT APRN) Current Patient Data Vital Signs Vital Signs Date Time Temp Pulse Resp B/P (MAP) Pulse Ox O2 Delivery O2 Flow Rate FiO2 01/21/19 22:56 114 20 123/59 (80) 98 Room Air 01/21/19 21:45 79.8 79.8 (IVETT MAGALLON MD) Lab Values Laboratory Tests Test 01/21/19 21:44 01/21/19 22:15 01/21/19 22:20 01/21/19 22:22 Glucose (Fingerstick) 66 mg/dL (70-99) L 43 mg/dL (70-99) *L White Blood Count 13.8 x10^3/uL (4.0-11.0) H Red Blood Count 4.97 x10^6/uL (3.50-5.40) Hemoglobin 14.2 g/dL (12.0-15.5) Hematocrit 42.2 % (36.0-47.0) Mean Corpuscular Volume 85 fL (79-100) Mean Corpuscular Hemoglobin 29 pg (25-35) Mean Corpuscular Hemoglobin Concent 34 g/dL (31-37) Red Cell Distribution Width 15.1 % (11.5-14.5) H Platelet Count 268 x10^3/uL (140-400) Neutrophils (%) (Auto) 71 % (31-73) Lymphocytes (%) (Auto) 21 % (24-48) L Monocytes (%) (Auto) 6 % (0-9) Eosinophils (%) (Auto) 1 % (0-3) Basophils (%) (Auto) 1 % (0-3) Neutrophils # (Auto) 9.8 x10^3uL (1.8-7.7) H Lymphocytes # (Auto) 3.0 x10^3/uL (1.0-4.8) Monocytes # (Auto) 0.8 x10^3/uL (0.0-1.1) Eosinophils # (Auto) 0.1 x10^3/uL (0.0-0.7) Basophils # (Auto) 0.1 x10^3/uL (0.0-0.2) Sodium Level 145 mmol/L (136-145) Potassium Level 3.3 mmol/L (3.5-5.1) L Chloride Level 107 mmol/L (98-107) Carbon Dioxide Level 27 mmol/L (21-32) Anion Gap 11 (6-14) Blood Urea Nitrogen 12 mg/dL (7-20) Creatinine 0.7 mg/dL (0.6-1.0) Estimated GFR (Cockcroft-Gault) 93.6 BUN/Creatinine Ratio 17 (6-20) Glucose Level 30 mg/dL (70-99) *L Calcium Level 9.9 mg/dL (8.5-10.1) Total Bilirubin 0.5 mg/dL (0.2-1.0) Aspartate Amino Transferase (AST) 30 U/L (15-37) Alanine Aminotransferase (ALT) 60 U/L (14-59) H Alkaline Phosphatase 95 U/L (46-116) Total Protein 8.3 g/dL (6.4-8.2) H Albumin 4.1 g/dL (3.4-5.0) Albumin/Globulin Ratio 1.0 (1.0-1.7) Urine Color Yellow Urine Clarity Clear Urine pH 5.5 Urine Specific [place] >=1.030 Urine Protein Negative mg/dL (NEG-TRACE) Urine Glucose (UA) Negative mg/dL (NEG) Urine Ketones (Stick) Trace mg/dL (NEG) Urine Blood Negative (NEG) Urine Nitrite Negative (NEG) Urine Bilirubin Small (NEG) Urine Urobilinogen Dipstick 1.0 mg/dL (0.2 mg/dL) Urine Leukocyte Esterase Small (NEG) Urine RBC 0 /HPF (0-2) Urine WBC 1-4 /HPF (0-4) Urine Squamous Epithelial Cells Occ /LPF Urine Bacteria Few /HPF (0-FEW) Urine Mucus Mod /LPF Laboratory Tests 01/21/19 22:15 Laboratory Tests 01/21/19 22:15 (IVETT MAGALLON MD) EKG EKG [] (ROXANN DEWITT APRN) Radiology/Procedures Radiology/Procedures [] (ROXANN DEWITT APRN) Course & Med Decision Making Course & Med Decision Making Pertinent Labs and Imaging studies reviewed. (See chart for details) This is a 38-year-old female patient with history of diabetes type 2 presenting today with hypoglycemia. She's been dealing with hypoglycemia for the last 1 month. She was taken off metformin and oral diabetic medication a month ago. She is scheduled to see an dividing machine operator next month. Her blood sugar was as low as 46 at home. Patient arrived in the ED with glucose of 66. Labs were drawn, CBC with a WBC of 13.8 and a left shift, CMP with glucose was 30. Patient was given glucose gell, D 50 LR started. CMP also noted for potassium of 3.3, oral potassium replacement was ordered. Urine analysis is noted for trace ketones, small amount of leukocytes-patient was started on Rocephin. Admitted under Dr. Cantu. Report to be given by Dr. Magallon in the morning Blood glucose has gone up to 102 (ROXANN DEWITT APRN) Dragon Disclaimer Dragon Disclaimer This electronic medical record was generated, in whole or in part, using a voice recognition dictation system. (ROXANN DEWITT APRN) Departure Departure Impression: Primary Impression: Hypoglycemia Disposition: 09 ADMITTED INPATIENT Condition: STABLE Referrals: JANET FULLER (PCP) ROXANN DEWITT APRN January 21, 2019 23:21 IVETT MAGALLON MD January 22, 2019 02:52
[2019-01-21] MEDS ORDERED: ONDANSETRON PF 4 MG/2 ML VIAL. IV PRN (23:45)
[2019-01-21] MEDS ORDERED: ACETAMINOPHEN 325 MG TABLET. PO PRN (23:45)
[2019-01-22] VITALS (7 sets, daily range): BP systolic 97–129; BP diastolic 50–71
[2019-01-22] MEDS: MORPHINE SULFATE 4 MG/ML VIAL. IV PRN ×8 (00:02→21:56)
[2019-01-22] MEDS ORDERED: POTASSIUM CHLORIDE 20 MEQ TABLET.ER. PO ONE (00:30)
[2019-01-22] MEDS ORDERED: cefTRIAXone IV Push 1 GM VIAL. IVP ONE (00:30)
[2019-01-22] MEDS: DEXTROSE 50% 25 GM / 50ML DISP.SYRIN. IV PRN ×4 (01:41→11:01)
[2019-01-22 06:13] LABS: CALCIUM 9.4 mg/dL (8.5-10.1); CREATININE 0.6 mg/dL (0.6-1.0); GFR 111.9; POTASSIUM 3.6 mmol/L (3.5-5.1)
[2019-01-22] MEDS ORDERED: ALPRAZolam 0.5 MG TABLET PO PRN (07:45)
[2019-01-22] MEDS ORDERED: ONDANSETRON PF 4 MG/2 ML VIAL. IV PRN (08:00)
[2019-01-22] MEDS ORDERED: IBUPROFEN 400 MG TABLET. PO PRN (08:00)
[2019-01-22] MEDS: HYDROcodone/APAP 5/325MG 1 TAB TABLET PO PRN ×2 (08:16→15:10)
[2019-01-22] MEDS ORDERED: BLACK COHOSH 540 MG PO SCH (09:00)
--- NOTE | 2019-01-22 09:42 | PDOC1 ---
History and Physical Date of Admission Date of Admission DATE: 01/22/19 TIME: 09:37 Identification/Chief Complaint Chief Complaint Low blood sugars Source Source: Caregiver, Chart review, Patient History of Present Illness History of Present Illness 38-year-old obese female who claims she was told was a type II diabetic, not on any insulin but was a matter of fact, taken off metformin by PCP because of recurrent hypoglycemia in the past month. She claims she still takes gabapentin and Amitiza and trazodone and Xanax (the last 2 meds only when necessary). She had repetitive low blood sugars hence admitted on dextrose fluid. So far 75 mL dextrose fluid, first bag and blood sugars are better. She is not fasting. 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 She works in [employer]. I'm unsure as to why she would have repetitive hypoglycemia if she's not on any long-acting or short-acting insulin. We'll check for insulin C-peptide, insulin antibodies and insulin levels. Though this may be rare and takes days to come back, once blood sugars are much better OFF dextrose IVF, I can discharge her safely home. Most likely that that will be tomorrow. My plan of care discussed with her and she is agreeable. Past Medical History Cardiovascular: HTN GI: GERD Psych: Anxiety, Depression Endocrine: Diabetes Past Surgical History Past Surgical History: Cholecystectomy, Hysterectomy Family History Family History: Diabetes, Hypertension Social History Smoke: No ALCOHOL: none Drugs: None Current Medications Current Medications Current Medications Ondansetron HCl (Zofran) 4 mg 1X ONCE IV Last administered on 01/21/19at 22:30; Start 01/21/19 at 23:00; Stop 01/21/19 at 23:01; Status DC Glucose (Insta-Glucose) 15 gm STK-MED ONCE .ROUTE ; Start 01/21/19 at 22:24; Stop 01/21/19 at 22:25; Status DC Glucose (Insta-Glucose) 15 gm 1X ONCE PO Last administered on 01/21/19at 22:33; Start 01/21/19 at 23:00; Stop 01/21/19 at 23:01; Status DC Dextrose/Lactated Ringer's 1,000 ml @ 75 mls/hr 1X ONCE IV Last administered on 01/21/19at 22:33; Start 01/21/19 at 23:00; Stop 01/22/19 at 12:19 Ondansetron HCl (Zofran) 4 mg PRN Q8HRS PRN IV NAUSEA/VOMITING 1ST CHOICE; Start 01/21/19 at 23:45; Stop 01/22/19 at 07:45; Status DC Morphine Sulfate (Morphine Sulfate) 4 mg PRN Q2HR PRN IV SEVERE PAIN Last administered on 01/22/19at 05:02; Start 01/21/19 at 23:45; Stop 01/22/19 at 23:44 Acetaminophen (Tylenol) 650 mg PRN Q4HRS PRN PO FEVER; Start 01/21/19 at 23:45; Stop 01/22/19 at 23:44 Dextrose (Dextrose 50%-Water Syringe) 12.5 gm PRN Q15MIN PRN IV SEE COMMENTS Last administered on 01/22/19at 07:53; Start 01/22/19 at 00:00 Ceftriaxone Sodium (Rocephin) 1 gm 1X ONCE IVP Last administered on 01/22/19at 02:10; Start 01/22/19 at 00:30; Stop 01/22/19 at 00:31; Status DC Potassium Chloride (Klor-Con) 40 meq 1X ONCE PO Last administered on 01/22/19at 03:10; Start 01/22/19 at 00:30; Stop 01/22/19 at 00:31; Status DC Ondansetron HCl (Zofran) 4 mg PRN Q6HRS PRN IV NAUSEA/VOMITING 1ST CHOICE Last administered on 01/22/19at 08:15; Start 01/22/19 at 08:00 Alprazolam (Xanax) 1 mg PRN TID PRN PO ANXIETY; Start 01/22/19 at 07:45 Gabapentin (Neurontin) 300 mg HS PO ; Start 01/22/19 at 21:00 Lubiprostone (Amitiza) 8 mcg DAILY PO ; Start 01/22/19 at 09:00 Trazodone HCl (Desyrel) 100 mg QHS PO ; Start 01/22/19 at 21:00 Non-Formulary Medication (Black Cohosh ) 540 mg DAILY PO ; Start 01/22/19 at 09:00; Status UNV Pantoprazole Sodium (Protonix) 40 mg DAILYAC PO ; Start 01/22/19 at 09:00 Acetaminophen/ Hydrocodone Bitart (Lortab 5/325) 1 tab PRN Q4HRS PRN PO PAIN Last administered on 01/22/19at 08:16; Start 01/22/19 at 08:00 Ibuprofen (Motrin) 400 mg PRN Q6HRS PRN PO INFLAMMATION; Start 01/22/19 at 08:00 Active Scripts Active Reported Black Cohosh 540 Mg Capsule 540 Mg PO DAILY Amitiza (Lubiprostone) 8 Mcg Capsule 8 Mcg PO DAILY Alprazolam 0.5 Mg Tablet 1 Mg PO PRN TID PRN Trazodone Hcl 100 Mg Tablet 1 Tab PO QHS Gabapentin (Gabapentin) 300 Mg Capsule 300 Mg PO HS Protonix (Pantoprazole Sodium) 20 Mg Tablet.dr 40 Mg PO DAILY Allergies Allergies: Coded Allergies: levofloxacin (Verified Allergy, Intermediate, Rash, 09/27/18) vancomycin (Verified Allergy, Intermediate, Rash, 09/27/18) ROS Review of System A 14 point ROS was completed with the following noted as positive: Other systems reviewed and negative. \CONSTITUTIONAL: No fever or chills EYES: No recent changes SKIN: No rash or itching CARDIOVASCULAR: No chest pain, syncope, palpitations, or edema RESPIRATORY: No SOB or cough GASTROINTESTINAL: No nausea, vomiting or abdominal pain NEUROLOGICAL: No headaches or weakness ENDOCRINE: No cold or heat intolerance GENITOURINARY: No urgency or frequency of urination MUSCULOSKELETAL: No back pain or joint pain LYMPHATICS: No enlarged lymph nodes PSYCHIATRIC: No anxiety or depression Physical Exam General: Alert, Oriented X3, Cooperative, No acute distress HEENT: Atraumatic, PERRLA, EOMI Lungs: Clear to auscultation, Normal air movement Heart: S1S2, RRR, no thrills, no rubs, no gallops, no murmurs Cardiovascular: S1, S2 Breasts: Normal, Rt breast nml w/o mass, Lt breast nml w/o mass, Nipples normal Abdomen: Normal bowel sounds, Soft, No tenderness, No hepatosplenomegaly, No masses Rectal Exam: not examined PELVIC: Nml ext genitalia Extremities: No clubbing, No cyanosis, No edema, Normal pulses, No tenderness/swelling Skin: No rashes, No breakdown, No significant lesion Neuro: Normal gait, Normal speech, Strength at 5/5 X4 ext, Normal tone, Sensation intact, Cranial nerves 3-12 NL, Reflexes 2+ Psych/Mental Status: Mental status NL, Mood NL Vitals Vitals Vital Signs Date Time Temp Pulse Resp B/P (MAP) Pulse Ox O2 Delivery O2 Flow Rate FiO2 01/22/19 08:16 Room Air 01/22/19 07:00 97.6 77 17 113/57 (75) 97 97.6 Labs Labs Laboratory Tests Test 01/21/19 21:44 01/21/19 22:15 01/21/19 22:20 01/21/19 22:22 Glucose (Fingerstick) 66 mg/dL (70-99) 43 mg/dL (70-99) White Blood Count 13.8 x10^3/uL (4.0-11.0) Red Blood Count 4.97 x10^6/uL (3.50-5.40) Hemoglobin 14.2 g/dL (12.0-15.5) Hematocrit 42.2 % (36.0-47.0) Mean Corpuscular Volume 85 fL (79-100) Mean Corpuscular Hemoglobin 29 pg (25-35) Mean Corpuscular Hemoglobin Concent 34 g/dL (31-37) Red Cell Distribution Width 15.1 % (11.5-14.5) Platelet Count 268 x10^3/uL (140-400) Neutrophils (%) (Auto) 71 % (31-73) Lymphocytes (%) (Auto) 21 % (24-48) Monocytes (%) (Auto) 6 % (0-9) Eosinophils (%) (Auto) 1 % (0-3) Basophils (%) (Auto) 1 % (0-3) Neutrophils # (Auto) 9.8 x10^3uL (1.8-7.7) Lymphocytes # (Auto) 3.0 x10^3/uL (1.0-4.8) Monocytes # (Auto) 0.8 x10^3/uL (0.0-1.1) Eosinophils # (Auto) 0.1 x10^3/uL (0.0-0.7) Basophils # (Auto) 0.1 x10^3/uL (0.0-0.2) Sodium Level 145 mmol/L (136-145) Potassium Level 3.3 mmol/L (3.5-5.1) Chloride Level 107 mmol/L (98-107) Carbon Dioxide Level 27 mmol/L (21-32) Anion Gap 11 (6-14) Blood Urea Nitrogen 12 mg/dL (7-20) Creatinine 0.7 mg/dL (0.6-1.0) Estimated GFR (Cockcroft-Gault) 93.6 BUN/Creatinine Ratio 17 (6-20) Glucose Level 30 mg/dL (70-99) Calcium Level 9.9 mg/dL (8.5-10.1) Total Bilirubin 0.5 mg/dL (0.2-1.0) Aspartate Amino Transf (AST/SGOT) 30 U/L (15-37) Alanine Aminotransferase (ALT/SGPT) 60 U/L (14-59) Alkaline Phosphatase 95 U/L (46-116) Total Protein 8.3 g/dL (6.4-8.2) Albumin 4.1 g/dL (3.4-5.0) Albumin/Globulin Ratio 1.0 (1.0-1.7) Urine Color Yellow Urine Clarity Clear Urine pH 5.5 Urine Specific [place] >=1.030 Urine Protein Negative mg/dL (NEG-TRACE) Urine Glucose (UA) Negative mg/dL (NEG) Urine Ketones (Stick) Trace mg/dL (NEG) Urine Blood Negative (NEG) Urine Nitrite Negative (NEG) Urine Bilirubin Small (NEG) Urine Urobilinogen Dipstick 1.0 mg/dL (0.2 mg/dL) Urine Leukocyte Esterase Small (NEG) Urine RBC 0 /HPF (0-2) Urine WBC 1-4 /HPF (0-4) Urine Squamous Epithelial Cells Occ /LPF Urine Bacteria Few /HPF (0-FEW) Urine Mucus Mod /LPF Test 01/22/19 00:04 01/22/19 01:05 01/22/19 01:34 01/22/19 01:46 Glucose (Fingerstick) 102 mg/dL (70-99) 53 mg/dL (70-99) 28 mg/dL (70-99) 597 mg/dL (70-99) Test 01/22/19 01:53 01/22/19 03:02 01/22/19 03:18 01/22/19 04:40 Glucose (Fingerstick) 159 mg/dL (70-99) 67 mg/dL (70-99) 142 mg/dL (70-99) 94 mg/dL (70-99) Test 01/22/19 05:15 01/22/19 05:42 01/22/19 06:14 01/22/19 07:35 Sodium Level 143 mmol/L (136-145) Potassium Level 3.6 mmol/L (3.5-5.1) Chloride Level 107 mmol/L (98-107) Carbon Dioxide Level 26 mmol/L (21-32) Anion Gap 10 (6-14) Blood Urea Nitrogen 9 mg/dL (7-20) Creatinine 0.6 mg/dL (0.6-1.0) Estimated GFR (Cockcroft-Gault) 111.9 Glucose Level 80 mg/dL (70-99) Calcium Level 9.4 mg/dL (8.5-10.1) Glucose (Fingerstick) 51 mg/dL (70-99) 109 mg/dL (70-99) 34 mg/dL (70-99) Test 01/22/19 08:44 Glucose (Fingerstick) 106 mg/dL (70-99) Laboratory Tests Test 01/21/19 21:44 01/21/19 22:15 01/21/19 22:20 01/21/19 22:22 Glucose (Fingerstick) 66 mg/dL (70-99) 43 mg/dL (70-99) White Blood Count 13.8 x10^3/uL (4.0-11.0) Red Blood Count 4.97 x10^6/uL (3.50-5.40) Hemoglobin 14.2 g/dL (12.0-15.5) Hematocrit 42.2 % (36.0-47.0) Mean Corpuscular Volume 85 fL (79-100) Mean Corpuscular Hemoglobin 29 pg (25-35) Mean Corpuscular Hemoglobin Concent 34 g/dL (31-37) Red Cell Distribution Width 15.1 % (11.5-14.5) Platelet Count 268 x10^3/uL (140-400) Neutrophils (%) (Auto) 71 % (31-73) Lymphocytes (%) (Auto) 21 % (24-48) Monocytes (%) (Auto) 6 % (0-9) Eosinophils (%) (Auto) 1 % (0-3) Basophils (%) (Auto) 1 % (0-3) Neutrophils # (Auto) 9.8 x10^3uL (1.8-7.7) Lymphocytes # (Auto) 3.0 x10^3/uL (1.0-4.8) Monocytes # (Auto) 0.8 x10^3/uL (0.0-1.1) Eosinophils # (Auto) 0.1 x10^3/uL (0.0-0.7) Basophils # (Auto) 0.1 x10^3/uL (0.0-0.2) Sodium Level 145 mmol/L (136-145) Potassium Level 3.3 mmol/L (3.5-5.1) Chloride Level 107 mmol/L (98-107) Carbon Dioxide Level 27 mmol/L (21-32) Anion Gap 11 (6-14) Blood Urea Nitrogen 12 mg/dL (7-20) Creatinine 0.7 mg/dL (0.6-1.0) Estimated GFR (Cockcroft-Gault) 93.6 BUN/Creatinine Ratio 17 (6-20) Glucose Level 30 mg/dL (70-99) Calcium Level 9.9 mg/dL (8.5-10.1) Total Bilirubin 0.5 mg/dL (0.2-1.0) Aspartate Amino Transf (AST/SGOT) 30 U/L (15-37) Alanine Aminotransferase (ALT/SGPT) 60 U/L (14-59) Alkaline Phosphatase 95 U/L (46-116) Total Protein 8.3 g/dL (6.4-8.2) Albumin 4.1 g/dL (3.4-5.0) Albumin/Globulin Ratio 1.0 (1.0-1.7) Urine Color Yellow Urine Clarity Clear Urine pH 5.5 Urine Specific [place] >=1.030 Urine Protein Negative mg/dL (NEG-TRACE) Urine Glucose (UA) Negative mg/dL (NEG) Urine Ketones (Stick) Trace mg/dL (NEG) Urine Blood Negative (NEG) Urine Nitrite Negative (NEG) Urine Bilirubin Small (NEG) Urine Urobilinogen Dipstick 1.0 mg/dL (0.2 mg/dL) Urine Leukocyte Esterase Small (NEG) Urine RBC 0 /HPF (0-2) Urine WBC 1-4 /HPF (0-4) Urine Squamous Epithelial Cells Occ /LPF Urine Bacteria Few /HPF (0-FEW) Urine Mucus Mod /LPF Test 01/22/19 00:04 01/22/19 01:05 01/22/19 01:34 01/22/19 01:46 Glucose (Fingerstick) 102 mg/dL (70-99) 53 mg/dL (70-99) 28 mg/dL (70-99) 597 mg/dL (70-99) Test 01/22/19 01:53 01/22/19 03:02 01/22/19 03:18 01/22/19 04:40 Glucose (Fingerstick) 159 mg/dL (70-99) 67 mg/dL (70-99) 142 mg/dL (70-99) 94 mg/dL (70-99) Test 01/22/19 05:15 01/22/19 05:42 01/22/19 06:14 01/22/19 07:35 Sodium Level 143 mmol/L (136-145) Potassium Level 3.6 mmol/L (3.5-5.1) Chloride Level 107 mmol/L (98-107) Carbon Dioxide Level 26 mmol/L (21-32) Anion Gap 10 (6-14) Blood Urea Nitrogen 9 mg/dL (7-20) Creatinine 0.6 mg/dL (0.6-1.0) Estimated GFR (Cockcroft-Gault) 111.9 Glucose Level 80 mg/dL (70-99) Calcium Level 9.4 mg/dL (8.5-10.1) Glucose (Fingerstick) 51 mg/dL (70-99) 109 mg/dL (70-99) 34 mg/dL (70-99) Test 01/22/19 08:44 Glucose (Fingerstick) 106 mg/dL (70-99) VTE Prophylaxis Ordered VTE Prophylaxis Devices: Yes VTE Pharmacological Prophylaxi: Yes Assessment/Plan Assessment/Plan Recurrent hypoglycemia Type II DM Overweight, BMI 31 Hypertension, chronic stable Plan Current IVF to consume Regular diet Check insulin peptide, insulin level and insulin antibodies - r./o exogenous insulin intake or insulinoma which is rather rare Once blood sugar better OFF dextrose drip, I can DC home- hopefully by tomorrow KALANI MCDONALD MD January 22, 2019 09:42
[2019-01-22] MEDS: PANTOPRAZOLE 40 MG TABLET.DR. PO SCH (09:49)
[2019-01-22] MEDS: LUBIPROSTONE 8 MCG CAPSULE PO SCH (09:49)
[2019-01-22] MEDS ORDERED: GABAPENTIN 300 MG CAPSULE. PO SCH (21:00)
[2019-01-22] MEDS ORDERED: traZODone 100 MG TABLET. PO SCH (21:00)
[2019-01-23] MEDS: HYDROcodone/APAP 5/325MG 1 TAB TABLET PO PRN ×3 (01:18→11:01)
[2019-01-23 03:00] VITALS: BP 105/45
[2019-01-23] MEDS: PANTOPRAZOLE 40 MG TABLET.DR. PO SCH (06:38)
[2019-01-23 07:00] VITALS: BP 94/58
[2019-01-23 08:19] VITALS: BP 94/58
[2019-01-23] MEDS: LUBIPROSTONE 8 MCG CAPSULE PO SCH (09:00)
--- NOTE | 2019-01-23 09:57 | PDOC3 ---
Discharge Summary Visit Information Date of Admission: January 22, 2019 Date of Discharge: January 23, 2019 Admitting Diagnosis Comment: Recurrent hypoglycemia r/o exogenous insulin intake or rare insulinoma Type II DM Overweight, BMI 31 Hypertension, chronic stable Brief Hospital Course Allergies Allergies Coded Allergies Type Severity Reaction Last Updated Verified levofloxacin Allergy Intermediate Rash 09/27/18 Yes vancomycin Allergy Intermediate Rash 09/27/18 Yes Vital Signs Vital Signs Date Time Temp Pulse Resp B/P (MAP) Pulse Ox O2 Delivery O2 Flow Rate FiO2 01/23/19 08:19 98.4 78 18 94/58 (70) 94 Room Air 98.4 Lab Results Laboratory Tests Test 01/21/19 21:44 01/21/19 22:15 01/21/19 22:20 01/21/19 22:22 Glucose (Fingerstick) 66 mg/dL (70-99) 43 mg/dL (70-99) White Blood Count 13.8 x10^3/uL (4.0-11.0) Red Blood Count 4.97 x10^6/uL (3.50-5.40) Hemoglobin 14.2 g/dL (12.0-15.5) Hematocrit 42.2 % (36.0-47.0) Mean Corpuscular Volume 85 fL (79-100) Mean Corpuscular Hemoglobin 29 pg (25-35) Mean Corpuscular Hemoglobin Concent 34 g/dL (31-37) Red Cell Distribution Width 15.1 % (11.5-14.5) Platelet Count 268 x10^3/uL (140-400) Neutrophils (%) (Auto) 71 % (31-73) Lymphocytes (%) (Auto) 21 % (24-48) Monocytes (%) (Auto) 6 % (0-9) Eosinophils (%) (Auto) 1 % (0-3) Basophils (%) (Auto) 1 % (0-3) Neutrophils # (Auto) 9.8 x10^3uL (1.8-7.7) Lymphocytes # (Auto) 3.0 x10^3/uL (1.0-4.8) Monocytes # (Auto) 0.8 x10^3/uL (0.0-1.1) Eosinophils # (Auto) 0.1 x10^3/uL (0.0-0.7) Basophils # (Auto) 0.1 x10^3/uL (0.0-0.2) Sodium Level 145 mmol/L (136-145) Potassium Level 3.3 mmol/L (3.5-5.1) Chloride Level 107 mmol/L (98-107) Carbon Dioxide Level 27 mmol/L (21-32) Anion Gap 11 (6-14) Blood Urea Nitrogen 12 mg/dL (7-20) Creatinine 0.7 mg/dL (0.6-1.0) Estimated GFR (Cockcroft-Gault) 93.6 BUN/Creatinine Ratio 17 (6-20) Glucose Level 30 mg/dL (70-99) Calcium Level 9.9 mg/dL (8.5-10.1) Total Bilirubin 0.5 mg/dL (0.2-1.0) Aspartate Amino Transf (AST/SGOT) 30 U/L (15-37) Alanine Aminotransferase (ALT/SGPT) 60 U/L (14-59) Alkaline Phosphatase 95 U/L (46-116) Total Protein 8.3 g/dL (6.4-8.2) Albumin 4.1 g/dL (3.4-5.0) Albumin/Globulin Ratio 1.0 (1.0-1.7) Urine Color Yellow Urine Clarity Clear Urine pH 5.5 Urine Specific Nelson >=1.030 Urine Protein Negative mg/dL (NEG-TRACE) Urine Glucose (UA) Negative mg/dL (NEG) Urine Ketones (Stick) Trace mg/dL (NEG) Urine Blood Negative (NEG) Urine Nitrite Negative (NEG) Urine Bilirubin Small (NEG) Urine Urobilinogen Dipstick 1.0 mg/dL (0.2 mg/dL) Urine Leukocyte Esterase Small (NEG) Urine RBC 0 /HPF (0-2) Urine WBC 1-4 /HPF (0-4) Urine Squamous Epithelial Cells Occ /LPF Urine Bacteria Few /HPF (0-FEW) Urine Mucus Mod /LPF Test 01/22/19 00:04 01/22/19 01:05 01/22/19 01:34 01/22/19 01:46 Glucose (Fingerstick) 102 mg/dL (70-99) 53 mg/dL (70-99) 28 mg/dL (70-99) 597 mg/dL (70-99) Test 01/22/19 01:53 01/22/19 03:02 01/22/19 03:18 01/22/19 04:40 Glucose (Fingerstick) 159 mg/dL (70-99) 67 mg/dL (70-99) 142 mg/dL (70-99) 94 mg/dL (70-99) Test 01/22/19 05:15 01/22/19 05:42 01/22/19 06:14 01/22/19 07:35 Sodium Level 143 mmol/L (136-145) Potassium Level 3.6 mmol/L (3.5-5.1) Chloride Level 107 mmol/L (98-107) Carbon Dioxide Level 26 mmol/L (21-32) Anion Gap 10 (6-14) Blood Urea Nitrogen 9 mg/dL (7-20) Creatinine 0.6 mg/dL (0.6-1.0) Estimated GFR (Cockcroft-Gault) 111.9 Glucose Level 80 mg/dL (70-99) Calcium Level 9.4 mg/dL (8.5-10.1) Glucose (Fingerstick) 51 mg/dL (70-99) 109 mg/dL (70-99) 34 mg/dL (70-99) Test 01/22/19 08:44 01/22/19 10:41 01/22/19 11:52 01/22/19 13:45 Glucose (Fingerstick) 106 mg/dL (70-99) 39 mg/dL (70-99) 116 mg/dL (70-99) 95 mg/dL (70-99) Test 01/22/19 15:20 01/22/19 16:44 01/22/19 18:38 01/22/19 20:35 Glucose (Fingerstick) 124 mg/dL (70-99) 80 mg/dL (70-99) 142 mg/dL (70-99) 112 mg/dL (70-99) Test 01/23/19 00:53 01/23/19 07:43 Glucose (Fingerstick) 89 mg/dL (70-99) 108 mg/dL (70-99) Laboratory Tests Test 01/22/19 10:41 01/22/19 11:52 01/22/19 13:45 01/22/19 15:20 Glucose (Fingerstick) 39 mg/dL (70-99) 116 mg/dL (70-99) 95 mg/dL (70-99) 124 mg/dL (70-99) Test 01/22/19 16:44 01/22/19 18:38 01/22/19 20:35 01/23/19 00:53 Glucose (Fingerstick) 80 mg/dL (70-99) 142 mg/dL (70-99) 112 mg/dL (70-99) 89 mg/dL (70-99) Test 01/23/19 07:43 Glucose (Fingerstick) 108 mg/dL (70-99) Brief Hospital Course Ms. Praker is a 38 old [sex] who presented with [ ] 38-year-old obese female who claims she was told was a type II diabetic, not on any insulin but was a matter of fact, taken off metformin by PCP because of recurrent hypoglycemia in the past month. She claims she still takes gabapentin and Amitiza and trazodone and Xanax (the last 2 meds only when necessary). She had repetitive low blood sugars hence admitted on dextrose fluid. So far 75 mL dextrose fluid, first bag and blood sugars are better. She is not fasting. 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 She works in [employer]. I'm unsure as to why she would have repetitive hypoglycemia if she's not on any long-acting or short-acting insulin. We'll check for insulin C-peptide, insulin antibodies and insulin levels. Though this may be rare and takes days to come back, once blood sugars are much better OFF dextrose IVF, I can discharge her safely home. Most likely that that will be tomorrow. My plan of care discussed with her and she is agreeable. COURSE: Sugars better off dextrose drip Insulin C-peptide, insulin levels, insulin antibodies all pending Requested some by mouth pain medicine narcotic to go home with home today WBC 13.8, on admission, we'll recheck. No signs of infection on UA. If that is better, will go home today Discharge Information Condition at Discharge: Improved, Stable Disposition/Orders: D/C to Home Scheduled Black Cohosh (Black Cohosh) 540 Mg Capsule, 540 MG PO DAILY for hot flashes, (Reported) Entered as Reported by: SALVADOR LUO on 09/24/18 1046 Last Action: Converted on 01/22/19745 by KALANI MCDONALD Gabapentin (Gabapentin ) 300 Mg Capsule, 300 MG PO HS for NEUROGENIC PAIN, (Reported) Entered as Reported by: LOUIS MACIEL on 09/07/181000 Last Action: Continued on 01/22/19745 by KALANI MCDONALD Lubiprostone (Amitiza) 8 Mcg Capsule, 8 MCG PO DAILY for stomach issues, (Reported) Entered as Reported by: SALVADOR LUO on 09/24/18 104 Last Action: Continued on 01/22/19745 by KALANI MCDONALD Pantoprazole Sodium (Protonix) 20 Mg Tablet.dr, 40 MG PO DAILY for acid indigestion, (Reported) Entered as Reported by: JULIA EDGAR on 06/17/18 0015 Last Action: Converted on 01/22/19745 by KALANI MCDONALD Trazodone Hcl (Trazodone Hcl) 100 Mg Tablet, 1 TAB PO QHS for SLEEP, #30 Ref 2 (Reported) Entered as Reported by: LOUIS MACIEL on 09/07/181000 Last Action: Continued on 01/22/19745 by KALANI MCDONALD Scheduled PRN Alprazolam (Alprazolam) 0.5 Mg Tablet, 1 MG PO PRN TID PRN for ANXIETY, #90 (Reported) Entered as Reported by: LOUIS MACIEL on 09/07/181000 Last Action: Continued on 01/22/19745 by KALANI HSU MD January 23, 2019 09:57
[2019-01-23 10:10] LABS: C-PEPTIDE 4.8 ng/mL (1.1-4.4); INSULIN LEVEL 64.9 uIU/mL (2.6-24.9)
[2019-01-23 11:00] VITALS: BP 110/62
[2019-01-23 11:03] LABS: BASO # 0.1 x10^3/uL (0.0-0.2); BASO % 1 % (0-3); EOS # 0.2 x10^3/uL (0.0-0.7); EOS % 2 % (0-3); HEMOGLOBIN 12.7 g/dL (12.0-15.5); LYMPH # 2.3 x10^3/uL (1.0-4.8); LYMPH % 26 % (24-48); MEAN CORPUSCULAR HEMOGLOBIN 29 pg (25-35); MEAN CORPUSCULAR HGB CONC 34 g/dL (31-37); MEAN CORPUSCULAR VOLUME 85 fL (79-100); MONO # 0.5 x10^3/uL (0.0-1.1); MONO % 6 % (0-9); NEUT # 5.8 x10^3uL (1.8-7.7); NEUT % 66 % (31-73); PLATELET COUNT 215 x10^3/uL (140-400); RED BLOOD COUNT 4.36 x10^6/uL (3.50-5.40); RED CELL DISTRIBUTION WIDTH 15.1 % (11.5-14.5); WHITE BLOOD COUNT 8.7 x10^3/uL (4.0-11.0)
--- NOTE | 2019-01-23 12:29 | NUR ---
Discharge Note: RON REYNA Discharge instructions and discharge home medications reviewed with Patient and a copy given. All questions have been answered and understanding verbalized. The following instructions and handouts were given: Patient given education regarding hypoglycemia. Discontinued lines and drains:IV removed per protocol. Patient discharged home, picked up by .
[2019-01-31 15:13] LABS: INSULIN ANTIBODIES <5.0 uU/mL (.)
== END 2019-01-23 12:19 | disposition home or self-care (01) | DRG 639 ==
LOC: ER 21:39 → 5 NORTH 22:59
PROVIDERS: ADMIT Family Medicine; ATTEND Family Medicine
DX: E11.649 Type 2 diabetes mellitus with hypoglycemia without coma (principal); F41.9 Anxiety disorder, unspecified; I10 Essential (primary) hypertension; K21.9 Gastro-esophageal reflux disease without esophagitis; K76.0 Fatty (change of) liver, not elsewhere classified; E66.9 Obesity, unspecified; Z68.31 Body mass index [BMI] 31.0-31.9, adult; F32.9 Major depressive disorder, single episode, unspecified; D37.8 Neoplasm of uncertain behavior of other specified digestive organs; Z82.49 Family history of ischemic heart disease and other diseases of the circulatory system; Z90.710 Acquired absence of both cervix and uterus; Z83.3 Family history of diabetes mellitus; Z79.899 Other long term (current) drug therapy; Z88.8 Allergy status to other drugs, medicaments and biological substances
CPT/HCPCS: 36415; 80048; 80053; 81001; 82962; 83036; 83525; 84681; 85025; 85651; 86337; 96361; 96374; J0696; J2270; J2405; J7042; 99285-25

== ENCOUNTER 2019-01-26 12:40 | Inpatient (IN) | payer BC ==
[~2019-01-26] VITALS: Ht 162.6 cm; Wt 80.3 kg
[2019-01-26] MEDS ORDERED: DEXTROSE ORAL GEL 15 GM TUBE. PO ONE ×2 (13:15→15:30)
[2019-01-26] MEDS ORDERED: ONDANSETRON PF 4 MG/2 ML VIAL. ONE (13:26)
[2019-01-26 13:29] LABS: BASO # 0.1 x10^3/uL (0.0-0.2); BASO % 1 % (0-3); EOS # 0.2 x10^3/uL (0.0-0.7); EOS % 1 % (0-3); HEMATOCRIT 42.4 % (36.0-47.0); HEMOGLOBIN 14.4 g/dL (12.0-15.5); LYMPH # 3.3 x10^3/uL (1.0-4.8); LYMPH % 22 % (24-48); MEAN CORPUSCULAR HEMOGLOBIN 29 pg (25-35); MEAN CORPUSCULAR HGB CONC 34 g/dL (31-37); MEAN CORPUSCULAR VOLUME 86 fL (79-100); MONO # 1.2 x10^3/uL (0.0-1.1); MONO % 8 % (0-9); NEUT # 10.4 x10^3uL (1.8-7.7); NEUT % 69 % (31-73); PLATELET COUNT 312 x10^3/uL (140-400); RED BLOOD COUNT 4.94 x10^6/uL (3.50-5.40); RED CELL DISTRIBUTION WIDTH 15.5 % (11.5-14.5); WHITE BLOOD COUNT 15.2 x10^3/uL (4.0-11.0)
[2019-01-26] MEDS ORDERED: IV DEXTROSE 5%-LACT RINGERS 1,000 ML IV ONE (13:30)
[2019-01-26] MEDS ORDERED: MORPHINE SULFATE 10 MG/ML VIAL. IV ONE (13:30)
[2019-01-26] MEDS ORDERED: ONDANSETRON PF 4 MG/2 ML VIAL. IV ONE (13:30)
[2019-01-26 13:33] LABS: BILIRUBIN,URINE NEGATIVE (NEG); CLARITY,URINE CLEAR; COLOR,URINE YELLOW; NITRITE,URINE NEGATIVE (NEG); PROTEIN,URINE NEGATIVE (NEG-TRACE); UROBILINOGEN,URINE 0.2 mg/dL (0.2 mg/dL)
[2019-01-26 13:55] LABS: ALBUMIN 4.2 g/dL (3.4-5.0); CREATININE 0.7 mg/dL (0.6-1.0); GFR 93.6; POTASSIUM 3.4 mmol/L (3.5-5.1); TOTAL BILIRUBIN 0.6 mg/dL (0.2-1.0); TOTAL PROTEIN 8.5 g/dL (6.4-8.2)
[2019-01-26 13:57] LABS: BACTERIA,URINE FEW /HPF (0-FEW); SQUAMOUS EPITHELIAL CELL,UR OCC /LPF
[2019-01-26] MEDS ORDERED: ALPRAZolam 0.5 MG TABLET PO PRN (14:45)
--- NOTE | 2019-01-26 14:46 | PDOC1 ---
History and Physical Date of Admission Date of Admission DATE: 01/26/19 TIME: 14:39 Identification/Chief Complaint Chief Complaint Low blood sugar again Source Source: Caregiver, Chart review, Patient History of Present Illness History of Present Illness 38-year-old female, nondiabetic, admitted for hypoglycemia persistent 30s 50s range with symptoms. No diabetes, not on insulin or sulfonylurea. The last time she was here I ordered insulin antibody C-peptide and insulin levels. Insulin levels are high at 60s normal is 40s, C-peptide moderately high 4.8, normal value 4.4. Insulin antibody still pending. 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 She denies exogenous insulin intake. CAT scan done 12/29/2018 showed no acute pathology. I did advise her to go see an car unloader helper onceI fix her hypoglycemia I canceled the MRI because her insulin C-peptide is not that high and CAT scan was negative on 12/29. INsulinoma is a rare disease though Past Medical History Cardiovascular: HTN GI: GERD Psych: Anxiety, Depression Endocrine: Diabetes Past Surgical History Past Surgical History: Cholecystectomy, Hysterectomy Family History Family History: Diabetes, Hypertension Social History Smoke: No ALCOHOL: none Drugs: None Current Medications Current Medications Current Medications Glucose (Insta-Glucose) 15 gm 1X ONCE PO Last administered on 01/26/19at 13:22; Start 01/26/19 at 13:15; Stop 01/26/19 at 13:17; Status DC Morphine Sulfate (Morphine Sulfate) 5 mg 1X ONCE IV Last administered on 01/26/19at 13:34; Start 01/26/19 at 13:30; Stop 01/26/19 at 13:31; Status DC Dextrose/Lactated Ringer's 1,000 ml @ 75 mls/hr 1X ONCE IV Last administered on 01/26/19at 13:27; Start 01/26/19 at 13:30; Stop 01/27/19 at 02:49 Ondansetron HCl (Zofran) 4 mg 1X ONCE IV Last administered on 01/26/19at 13:34; Start 01/26/19 at 13:30; Stop 01/26/19 at 13:33; Status DC Ondansetron HCl (Zofran) 4 mg STK-MED ONCE .ROUTE ; Start 01/26/19 at 13:26; Stop 01/26/19 at 13:27; Status DC Active Scripts Active Reported Black Cohosh 540 Mg Capsule 540 Mg PO DAILY Amitiza (Lubiprostone) 8 Mcg Capsule 8 Mcg PO DAILY Alprazolam 0.5 Mg Tablet 1 Mg PO PRN TID PRN Trazodone Hcl 100 Mg Tablet 1 Tab PO QHS Gabapentin (Gabapentin) 300 Mg Capsule 300 Mg PO HS Protonix (Pantoprazole Sodium) 20 Mg Tablet.dr 40 Mg PO DAILY Allergies Allergies: Coded Allergies: levofloxacin (Verified Allergy, Intermediate, Rash, 09/27/18) vancomycin (Verified Allergy, Intermediate, Rash, 09/27/18) ROS Review of System A 14 point ROS was completed with the following noted as positive: Other systems reviewed and negative. \CONSTITUTIONAL: No fever or chills EYES: No recent changes SKIN: No rash or itching CARDIOVASCULAR: No chest pain, syncope, palpitations, or edema RESPIRATORY: No SOB or cough GASTROINTESTINAL: No nausea, vomiting or abdominal pain NEUROLOGICAL: No headaches or weakness ENDOCRINE: No cold or heat intolerance GENITOURINARY: No urgency or frequency of urination MUSCULOSKELETAL: No back pain or joint pain LYMPHATICS: No enlarged lymph nodes PSYCHIATRIC: No anxiety or depression Physical Exam General: Alert, Oriented X3, Cooperative, No acute distress HEENT: Atraumatic, PERRLA, EOMI Lungs: Clear to auscultation, Normal air movement Heart: S1S2, RRR, no thrills, no rubs, no gallops, no murmurs Cardiovascular: S1, S2 Breasts: Normal, Rt breast nml w/o mass, Lt breast nml w/o mass, Nipples normal Abdomen: Normal bowel sounds, Soft, No tenderness, No hepatosplenomegaly, No masses Rectal Exam: not examined PELVIC: Nml ext genitalia Extremities: No clubbing, No cyanosis, No edema, Normal pulses, No tenderness/swelling Skin: No rashes, No breakdown, No significant lesion Neuro: Normal gait, Normal speech, Strength at 5/5 X4 ext, Normal tone, Sensation intact, Cranial nerves 3-12 NL, Reflexes 2+ Psych/Mental Status: Mental status NL, Mood NL Vitals Vitals Vital Signs Date Time Temp Pulse Resp B/P (MAP) Pulse Ox O2 Delivery O2 Flow Rate FiO2 01/26/19 12:58 97.8 112 18 152/85 (107) 99 Room Air 97.8 Labs Labs Laboratory Tests Test 01/26/19 12:46 01/26/19 12:49 01/26/19 12:59 01/26/19 13:00 Glucose (Fingerstick) 39 mg/dL (70-99) Urine Color Yellow Urine Clarity Clear Urine pH 6.0 Urine Specific Simpson <=1.005 Urine Protein Negative mg/dL (NEG-TRACE) Urine Glucose (UA) Negative mg/dL (NEG) Urine Ketones (Stick) Negative mg/dL (NEG) Urine Blood Large (NEG) Urine Nitrite Negative (NEG) Urine Bilirubin Negative (NEG) Urine Urobilinogen Dipstick 0.2 mg/dL (0.2 mg/dL) Urine Leukocyte Esterase Negative (NEG) Urine RBC 1-2 /HPF (0-2) Urine WBC 1-4 /HPF (0-4) Urine Squamous Epithelial Cells Occ /LPF Urine Bacteria Few /HPF (0-FEW) Bedside Urine HCG, Qualitative Hcg negative (Negative) White Blood Count 15.2 x10^3/uL (4.0-11.0) Red Blood Count 4.94 x10^6/uL (3.50-5.40) Hemoglobin 14.4 g/dL (12.0-15.5) Hematocrit 42.4 % (36.0-47.0) Mean Corpuscular Volume 86 fL (79-100) Mean Corpuscular Hemoglobin 29 pg (25-35) Mean Corpuscular Hemoglobin Concent 34 g/dL (31-37) Red Cell Distribution Width 15.5 % (11.5-14.5) Platelet Count 312 x10^3/uL (140-400) Neutrophils (%) (Auto) 69 % (31-73) Lymphocytes (%) (Auto) 22 % (24-48) Monocytes (%) (Auto) 8 % (0-9) Eosinophils (%) (Auto) 1 % (0-3) Basophils (%) (Auto) 1 % (0-3) Neutrophils # (Auto) 10.4 x10^3uL (1.8-7.7) Lymphocytes # (Auto) 3.3 x10^3/uL (1.0-4.8) Monocytes # (Auto) 1.2 x10^3/uL (0.0-1.1) Eosinophils # (Auto) 0.2 x10^3/uL (0.0-0.7) Basophils # (Auto) 0.1 x10^3/uL (0.0-0.2) Sodium Level 143 mmol/L (136-145) Potassium Level 3.4 mmol/L (3.5-5.1) Chloride Level 103 mmol/L (98-107) Carbon Dioxide Level 27 mmol/L (21-32) Anion Gap 13 (6-14) Blood Urea Nitrogen 9 mg/dL (7-20) Creatinine 0.7 mg/dL (0.6-1.0) Estimated GFR (Cockcroft-Gault) 93.6 BUN/Creatinine Ratio 13 (6-20) Glucose Level 34 mg/dL (70-99) Calcium Level 10.0 mg/dL (8.5-10.1) Total Bilirubin 0.6 mg/dL (0.2-1.0) Aspartate Amino Transf (AST/SGOT) 42 U/L (15-37) Alanine Aminotransferase (ALT/SGPT) 74 U/L (14-59) Alkaline Phosphatase 104 U/L (46-116) Total Protein 8.5 g/dL (6.4-8.2) Albumin 4.2 g/dL (3.4-5.0) Albumin/Globulin Ratio 1.0 (1.0-1.7) Test 01/26/19 13:48 01/26/19 14:04 Glucose (Fingerstick) 54 mg/dL (70-99) 49 mg/dL (70-99) Laboratory Tests Test 01/26/19 12:46 01/26/19 12:49 01/26/19 12:59 01/26/19 13:00 Glucose (Fingerstick) 39 mg/dL (70-99) Urine Color Yellow Urine Clarity Clear Urine pH 6.0 Urine Specific Simpson <=1.005 Urine Protein Negative mg/dL (NEG-TRACE) Urine Glucose (UA) Negative mg/dL (NEG) Urine Ketones (Stick) Negative mg/dL (NEG) Urine Blood Large (NEG) Urine Nitrite Negative (NEG) Urine Bilirubin Negative (NEG) Urine Urobilinogen Dipstick 0.2 mg/dL (0.2 mg/dL) Urine Leukocyte Esterase Negative (NEG) Urine RBC 1-2 /HPF (0-2) Urine WBC 1-4 /HPF (0-4) Urine Squamous Epithelial Cells Occ /LPF Urine Bacteria Few /HPF (0-FEW) Bedside Urine HCG, Qualitative Hcg negative (Negative) White Blood Count 15.2 x10^3/uL (4.0-11.0) Red Blood Count 4.94 x10^6/uL (3.50-5.40) Hemoglobin 14.4 g/dL (12.0-15.5) Hematocrit 42.4 % (36.0-47.0) Mean Corpuscular Volume 86 fL (79-100) Mean Corpuscular Hemoglobin 29 pg (25-35) Mean Corpuscular Hemoglobin Concent 34 g/dL (31-37) Red Cell Distribution Width 15.5 % (11.5-14.5) Platelet Count 312 x10^3/uL (140-400) Neutrophils (%) (Auto) 69 % (31-73) Lymphocytes (%) (Auto) 22 % (24-48) Monocytes (%) (Auto) 8 % (0-9) Eosinophils (%) (Auto) 1 % (0-3) Basophils (%) (Auto) 1 % (0-3) Neutrophils # (Auto) 10.4 x10^3uL (1.8-7.7) Lymphocytes # (Auto) 3.3 x10^3/uL (1.0-4.8) Monocytes # (Auto) 1.2 x10^3/uL (0.0-1.1) Eosinophils # (Auto) 0.2 x10^3/uL (0.0-0.7) Basophils # (Auto) 0.1 x10^3/uL (0.0-0.2) Sodium Level 143 mmol/L (136-145) Potassium Level 3.4 mmol/L (3.5-5.1) Chloride Level 103 mmol/L (98-107) Carbon Dioxide Level 27 mmol/L (21-32) Anion Gap 13 (6-14) Blood Urea Nitrogen 9 mg/dL (7-20) Creatinine 0.7 mg/dL (0.6-1.0) Estimated GFR (Cockcroft-Gault) 93.6 BUN/Creatinine Ratio 13 (6-20) Glucose Level 34 mg/dL (70-99) Calcium Level 10.0 mg/dL (8.5-10.1) Total Bilirubin 0.6 mg/dL (0.2-1.0) Aspartate Amino Transf (AST/SGOT) 42 U/L (15-37) Alanine Aminotransferase (ALT/SGPT) 74 U/L (14-59) Alkaline Phosphatase 104 U/L (46-116) Total Protein 8.5 g/dL (6.4-8.2) Albumin 4.2 g/dL (3.4-5.0) Albumin/Globulin Ratio 1.0 (1.0-1.7) Test 01/26/19 13:48 01/26/19 14:04 Glucose (Fingerstick) 54 mg/dL (70-99) 49 mg/dL (70-99) VTE Prophylaxis Ordered VTE Prophylaxis Devices: Yes VTE Pharmacological Prophylaxi: Yes Assessment/Plan Assessment/Plan RECurrent, persistent hypoglycemia-exogenous insulin intake is definitely a high differential-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 - her CT abd 12/29 was normal Elevated Insulin levels - either from exogenous or endogenous insulin intake Obesity Insulin antibodies pending-would be high or positive and she is taking exogenous insulin, Need to follow up on this PLAN: Dextrose drip I think my working diagnosis right now is recurrent hypoglycemia from Exogenous insulin intake-but to verify this we have to wait for insulin antibodies She denies exogenous intake though I did advice her to seek endocrinology if our workup here is negative or if her exogenous insulin/insulin antibodies is negative Seen at ER [facility] complex KALANI MCDONALD MD January 26, 2019 14:46
[2019-01-26] MEDS ORDERED: ONDANSETRON PF 4 MG/2 ML VIAL. IV PRN (15:15)
[2019-01-26] MEDS ORDERED: ACETAMINOPHEN 325 MG TABLET. PO PRN (15:15)
--- NOTE | 2019-01-26 15:25 | PHYS DOC ---
Past Medical History Past Medical History: Diabetes-Type II, Pancreatitis, Other Additional Past Medical Histor: NON-ALCHOL RELATED FATTY LIVER, HIDRADENITIS Past Surgical History: Cholecystectomy, Hysterectomy, Tonsillectomy Additional Past Surgical Histo: bilateral ankles, multiple abscess removal, breast reduction, hernia Alcohol Use: None Drug Use: None Adult General Chief Complaint Chief Complaint: HYPOGLYCEMIA HPI HPI Patient is a 38 year old female with history of diabetes type 2 who presents to the ED today complaining of hypoglycemia states she has had persistent low blood glucose between 30 and 50s for couple weeks. She states she used to be on metformin and her PCP took her off the medication because of hypoglycemia. She states she has an appointment to see an repeater chief next month. Review of Systems Review of Systems Constitutional: Denies fever or chills [] Eyes: Denies change in visual acuity, redness, or eye pain [] HENT: Denies nasal congestion or sore throat [] Respiratory: Denies cough or shortness of breath [] Cardiovascular: No additional information not addressed in HPI [] GI: Denies abdominal pain, nausea, vomiting, bloody stools or diarrhea [] : Denies dysuria or hematuria [] Musculoskeletal: Denies back pain or joint pain [] Integument: Denies rash or skin lesions [] Neurologic: Denies headache, focal weakness or sensory changes [] Endocrine: Reports hypoglycemic All other systems were reviewed and found to be within normal limits, except as documented in this note. Current Medications Current Medications Current Medications Medications (Trade) Dose Ordered Sig/Taqueria Start Time Stop Time Status Last Admin Dose Admin Dextrose/Lactated Ringer's 1,000 ml @ 75 mls/hr 1X ONCE 01/26/19 13:30 01/27/19 02:49 01/26/19 13:27 75 MLS/HR Glucose (Insta-Glucose) 15 gm 1X ONCE 01/26/19 13:15 01/26/19 13:17 DC 01/26/19 13:22 15 GM Morphine Sulfate (Morphine Sulfate) 5 mg 1X ONCE 01/26/19 13:30 01/26/19 13:31 DC 01/26/19 13:34 5 MG Ondansetron HCl (Zofran) 4 mg STK-MED ONCE 01/26/19 13:26 01/26/19 13:27 DC Allergies Allergies Allergies Coded Allergies Type Severity Reaction Last Updated Verified levofloxacin Allergy Intermediate Rash 09/27/18 Yes vancomycin Allergy Intermediate Rash 09/27/18 Yes Physical Exam Physical Exam Constitutional: Well developed, well nourished, no acute distress, non-toxic appearance. [] HENT: Normocephalic, atraumatic, bilateral external ears normal, oropharynx moist, no oral exudates, nose normal. [] Eyes: PERRLA, EOMI, conjunctiva normal, no discharge. [] Neck: Normal range of motion, no tenderness, supple, no stridor. [] Cardiovascular:Heart rate regular rhythm, no murmur [] Lungs & Thorax: Bilateral breath sounds clear to auscultation [] Abdomen: Bowel sounds normal, soft, no tenderness, no masses, no pulsatile masses. [] Skin: Warm, dry, no erythema, no rash. [] Back: No tenderness, no CVA tenderness. [] Extremities: No tenderness, no cyanosis, no clubbing, ROM intact, no edema. [] Neurologic: Alert and oriented X 3, normal motor function, normal sensory function, no focal deficits noted. [] Psychologic: Affect normal, judgement normal, mood normal. [] Current Patient Data Vital Signs Vital Signs Date Time Temp Pulse Resp B/P (MAP) Pulse Ox O2 Delivery O2 Flow Rate FiO2 01/26/19 14:00 100 25 110/68 (82) 93 Room Air 01/26/19 12:58 97.8 97.8 Lab Values Laboratory Tests Test 01/26/19 12:46 01/26/19 12:49 01/26/19 12:59 01/26/19 13:00 Glucose (Fingerstick) 39 mg/dL (70-99) *L Urine Color Yellow Urine Clarity Clear Urine pH 6.0 Urine Specific Callahan <=1.005 Urine Protein Negative mg/dL (NEG-TRACE) Urine Glucose (UA) Negative mg/dL (NEG) Urine Ketones (Stick) Negative mg/dL (NEG) Urine Blood Large (NEG) Urine Nitrite Negative (NEG) Urine Bilirubin Negative (NEG) Urine Urobilinogen Dipstick 0.2 mg/dL (0.2 mg/dL) Urine Leukocyte Esterase Negative (NEG) Urine RBC 1-2 /HPF (0-2) Urine WBC 1-4 /HPF (0-4) Urine Squamous Epithelial Cells Occ /LPF Urine Bacteria Few /HPF (0-FEW) POC Urine HCG, Qualitative Hcg negative (Negative) White Blood Count 15.2 x10^3/uL (4.0-11.0) H Red Blood Count 4.94 x10^6/uL (3.50-5.40) Hemoglobin 14.4 g/dL (12.0-15.5) Hematocrit 42.4 % (36.0-47.0) Mean Corpuscular Volume 86 fL (79-100) Mean Corpuscular Hemoglobin 29 pg (25-35) Mean Corpuscular Hemoglobin Concent 34 g/dL (31-37) Red Cell Distribution Width 15.5 % (11.5-14.5) H Platelet Count 312 x10^3/uL (140-400) Neutrophils (%) (Auto) 69 % (31-73) Lymphocytes (%) (Auto) 22 % (24-48) L Monocytes (%) (Auto) 8 % (0-9) Eosinophils (%) (Auto) 1 % (0-3) Basophils (%) (Auto) 1 % (0-3) Neutrophils # (Auto) 10.4 x10^3uL (1.8-7.7) H Lymphocytes # (Auto) 3.3 x10^3/uL (1.0-4.8) Monocytes # (Auto) 1.2 x10^3/uL (0.0-1.1) H Eosinophils # (Auto) 0.2 x10^3/uL (0.0-0.7) Basophils # (Auto) 0.1 x10^3/uL (0.0-0.2) Sodium Level 143 mmol/L (136-145) Potassium Level 3.4 mmol/L (3.5-5.1) L Chloride Level 103 mmol/L (98-107) Carbon Dioxide Level 27 mmol/L (21-32) Anion Gap 13 (6-14) Blood Urea Nitrogen 9 mg/dL (7-20) Creatinine 0.7 mg/dL (0.6-1.0) Estimated GFR (Cockcroft-Gault) 93.6 BUN/Creatinine Ratio 13 (6-20) Glucose Level 34 mg/dL (70-99) *L Calcium Level 10.0 mg/dL (8.5-10.1) Total Bilirubin 0.6 mg/dL (0.2-1.0) Aspartate Amino Transferase (AST) 42 U/L (15-37) H Alanine Aminotransferase (ALT) 74 U/L (14-59) H Alkaline Phosphatase 104 U/L (46-116) Total Protein 8.5 g/dL (6.4-8.2) H Albumin 4.2 g/dL (3.4-5.0) Albumin/Globulin Ratio 1.0 (1.0-1.7) Test 01/26/19 13:48 01/26/19 14:04 Glucose (Fingerstick) 54 mg/dL (70-99) L 49 mg/dL (70-99) L Laboratory Tests 01/26/19 13:00 Laboratory Tests 01/26/19 13:00 EKG EKG [] Radiology/Procedures Radiology/Procedures [] Course & Med Decision Making Course & Med Decision Making Pertinent Labs and Imaging studies reviewed. (See chart for details) This is a 38-year-old female patient presenting to the ED today with hypoglycemia that has been persistent for couple weeks. Fingerstick on arrival to the ED 39. BMP with glucose of 34. Patient was given glucose gel, started on D5 with LR-glucose continues to be low. Given 1 amp of Dextrose -glucose went up to 218. Dr. Trent accepted patient for admission. Amalia Disclaimer Amalia Disclaimer This electronic medical record was generated, in whole or in part, using a voice recognition dictation system. Departure Departure Impression: Primary Impression: Hypoglycemia Disposition: ADMITTED INPATIENT Condition: STABLE Referrals: JANET FULLER (PCP) ROXANN DEWITT APRN January 26, 2019 15:25
[2019-01-26] MEDS ORDERED: DEXTROSE 50% 25 GM / 50ML DISP.SYRIN. IV ONE (15:45)
[2019-01-26 16:55] VITALS: BP 97/64
[2019-01-26] MEDS ORDERED: HYDROcodone/APAP 5/325MG 1 TAB TABLET PO PRN (17:15)
[2019-01-26] MEDS ORDERED: KETOROLAC 15 MG/ML VIAL. IV PRN (17:15)
[2019-01-26] MEDS ORDERED: DEXTROSE 50% 25 GM / 50ML DISP.SYRIN. IV PRN (17:15)
--- NOTE | 2019-01-26 17:49 | NUR ---
Pt arrived to room 521 @ 1555 per w/c. VS taken and pt positioned for comfort. Pt reports abdominal pain is 9/10 on the pain scale. Pt refused tylenol and reports she has nonalcoholic liver disease stage 3 and is unable to take tylenol or medication containing tylenol. Dr Trent notified and she added ketoralc and hydrocodone. Pt refused these medications and states at 1730 that she wants to leave against medical advice as these medications will not take care of her pain. Dr Trent notified pt wants to leave AMA,and stated she will have to leave AMA and she will not discharge pt. Nursing roustabout supervisor notified of pt leaving AMA. She said to make sure pt has a ride if not a cab pass would be provided. She also stated to notify security. Pt reported she has her car in the ED parking lot. Pt informed of risks of leaving, AMA form read to pt and she signed AMA form at 1736. Pt left AMA accompanied by solutions executive security with all belongings ambulatory at 1748.Pt's admission was not completed as yet.Admission head to toe completed.
[2019-01-26] MEDS ORDERED: traZODone 100 MG TABLET. PO SCH (21:00)
[2019-01-26] MEDS ORDERED: GABAPENTIN 300 MG CAPSULE. PO SCH (21:00)
[2019-01-27] MEDS ORDERED: PANTOPRAZOLE 40 MG TABLET.DR. PO SCH (07:30)
[2019-01-27] MEDS ORDERED: LUBIPROSTONE 8 MCG CAPSULE PO SCH (08:00)
[2019-01-27] MEDS ORDERED: BLACK COHOSH 540 MG PO SCH (09:00)
== END 2019-01-26 17:48 | disposition left against medical advice (07) | DRG 639 ==
LOC: ER 12:40 → 5 NORTH 14:19
PROVIDERS: ADMIT Internal Medicine; ATTEND Internal Medicine
DX: E11.649 Type 2 diabetes mellitus with hypoglycemia without coma (principal); I10 Essential (primary) hypertension; K21.9 Gastro-esophageal reflux disease without esophagitis; F41.9 Anxiety disorder, unspecified; E66.9 Obesity, unspecified; F32.9 Major depressive disorder, single episode, unspecified; Z83.3 Family history of diabetes mellitus; Z82.49 Family history of ischemic heart disease and other diseases of the circulatory system; Z88.1 Allergy status to other antibiotic agents; Z88.8 Allergy status to other drugs, medicaments and biological substances; Z90.710 Acquired absence of both cervix and uterus; Z68.30 Body mass index [BMI] 30.0-30.9, adult
CPT/HCPCS: 36415; 80053; 81001; 81025; 82962; 85025; 96365; 96375; J2270; J2405; J7042; 99285-25

== ENCOUNTER 2019-03-29 16:52 | Inpatient (IN) | payer BC ==
[~2019-03-29] VITALS: Ht 162.6 cm; Wt 84.4 kg
[~2019-03-29 16:52] MED LIST changes: +ACAR25TA PO; -DULO60CA44 PO; +DULO60CA45 PO
[2019-03-29 18:03] LABS: BILIRUBIN,URINE SMALL (NEG); CLARITY,URINE CLOUDY; COLOR,URINE AMBER; NITRITE,URINE NEGATIVE (NEG); PROTEIN,URINE NEGATIVE (NEG-TRACE); UROBILINOGEN,URINE 0.2 mg/dL (0.2 mg/dL)
[2019-03-29 18:12] LABS: RBC,URINE >40 /HPF (0-2)
[2019-03-29 18:13] LABS: BACTERIA,URINE MANY /HPF (0-FEW); SQUAMOUS EPITHELIAL CELL,UR MANY /LPF
--- NOTE | 2019-03-29 18:15 | NUR ---
Around 1800 pt's BS read 53. Marian WIGGINS notified. Pt given apple juice and orange juice at 1803. Cynthia EMMANUEL notified as well.
[2019-03-29] MEDS ORDERED: fentaNYL PF VIAL 100 MCG/2 ML VIAL IV ONE (18:45)
[2019-03-29] MEDS ORDERED: ONDANSETRON PF 4 MG/2 ML VIAL. IV ONE (18:45)
[2019-03-29] MEDS ORDERED: IOHEXOL 300 MG/ML 100ML VIAL. IV ONE (18:45)
[2019-03-29] MEDS ORDERED: CONTRAST GIVEN. MC PRN (18:45)
[2019-03-29] MEDS ORDERED: IV DEXTROSE 5% 500 ML IV STA (19:00)
--- NOTE | 2019-03-29 19:01 | PHYS DOC ---
Past Medical History Past Medical History: Diabetes-Type II, Pancreatitis, Other Additional Past Medical Histor: NON-ALCHOL RELATED FATTY LIVER, HIDRADENITIS Past Surgical History: Cholecystectomy, Hysterectomy, Tonsillectomy Additional Past Surgical Histo: bilateral ankles, multiple abscess removal, breast reduction, hernia Alcohol Use: None Drug Use: None Adult General Chief Complaint Chief Complaint: ABDOMINAL PAIN HPI HPI Patient is a 38 year old female who presents to the emergency department with complaints of low blood sugars after taking a new diabetes mediation, Jardiance, that was given to her by her PCP. Pt is unsure of the dose of the medication, she states she was given sample packets of the pills. PT states she also has right sided abdominal pain that has increased in severity since starting the medication. She currently rates her pain an 8/10 on the pain scale and she denies any alleviating factors, the pain increases with palpation of her abdome n. She states that she took the medication at 1100. Her blood sugar has dropped to 40 at it's lowest so she decided to come to the ER. Pt reports drinking juice and eating a turkey sandwich before coming to the er. She is currently taking amoxicillin that was prescribed by her dentist for a broken tooth. ROS Pt denies any fever, cough, SOA, chest pain, diarrhea, bloody stools, back pain, dysuria, hematuria, or increased urinary frequency. She reports nausea and has had 2 episodes of vomiting today. Her last BM was this morning and normal per pt. All other ROS is neg unless otherwise noted in HPI. Review of Systems Review of Systems See Above Current Medications Current Medications Current Medications Medications (Trade) Dose Ordered Sig/Taqueria Start Time Stop Time Status Last Admin Dose Admin Dextrose 500 ml @ 150 mls/hr 1X STAT 03/29/19 19:00 03/29/19 22:19 DC 03/29/19 20:04 150 MLS/HR Fentanyl Citrate (Fentanyl 2ml Vial) 50 mcg 1X ONCE 03/29/19 18:45 03/29/19 18:46 DC 03/29/19 18:45 50 MCG Info (CONTRAST GIVEN -- Rx MONITORING) 1 each PRN DAILY PRN 03/29/19 18:45 03/31/19 18:44 Iohexol (Omnipaque 300 Mg/ml) 75 ml 1X ONCE 03/29/19 18:45 03/29/19 18:46 DC 03/29/19 18:45 75 ML Ondansetron HCl (Zofran) 4 mg 1X ONCE 03/29/19 18:45 03/29/19 18:46 DC 03/29/19 18:45 4 MG Allergies Allergies Allergies Coded Allergies Type Severity Reaction Last Updated Verified levofloxacin Allergy Intermediate Rash 09/27/18 Yes vancomycin Allergy Intermediate Rash 09/27/18 Yes Physical Exam Physical Exam See Above Constitutional: Well developed, well nourished, no acute distress, non-toxic appearance, obese. [] HENT: Normocephalic, atraumatic, bilateral external ears normal, oropharynx moist, no oral exudates, nose normal. [] Eyes: PERRLA, conjunctiva normal, no discharge. [] Neck: Normal range of motion, no stridor. [] Cardiovascular:Heart rate regular rhythm Lungs & Thorax: Bilateral breath sounds clear to auscultation [] Abdomen: Bowel sounds normal, soft, no masses, no pulsatile masses; RUQ TTP, RLQ TTP with rebound tenderness in RLQ, no guarding [] Skin: Warm, dry, no erythema, no rash. [] Back: No CVA tenderness. [] Extremities: No cyanosis, no clubbing, ROM intact, no edema. [] Neurologic: Alert and oriented X 3, normal motor function, normal sensory function, no focal deficits noted. [] Psychologic: Affect normal, judgement normal, mood normal. [] Current Patient Data Vital Signs Vital Signs Date Time Temp Pulse Resp B/P (MAP) Pulse Ox O2 Delivery O2 Flow Rate FiO2 03/29/19 20:45 100 16 121/84 (96) 97 Room Air 03/29/19 17:10 98.4 98.4 Lab Values Laboratory Tests Test 03/29/19 17:39 03/29/19 19:00 Urine Collection Type Unknown Urine Color Olive Urine Clarity Cloudy Urine pH 5.0 Urine Specific [place] >=1.030 Urine Protein Negative mg/dL (NEG-TRACE) Urine Glucose (UA) Negative mg/dL (NEG) Urine Ketones (Stick) Negative mg/dL (NEG) Urine Blood Large (NEG) Urine Nitrite Negative (NEG) Urine Bilirubin Small (NEG) Urine Urobilinogen Dipstick 0.2 mg/dL (0.2 mg/dL) Urine Leukocyte Esterase Moderate (NEG) Urine RBC >40 /HPF (0-2) Urine WBC 1-4 /HPF (0-4) Urine Squamous Epithelial Cells Many /LPF Urine Bacteria Many /HPF (0-FEW) Urine Mucus Mod /LPF White Blood Count 14.8 x10^3/uL (4.0-11.0) H Red Blood Count 4.85 x10^6/uL (3.50-5.40) Hemoglobin 14.3 g/dL (12.0-15.5) Hematocrit 41.5 % (36.0-47.0) Mean Corpuscular Volume 86 fL (79-100) Mean Corpuscular Hemoglobin 30 pg (25-35) Mean Corpuscular Hemoglobin Concent 35 g/dL (31-37) Red Cell Distribution Width 15.6 % (11.5-14.5) H Platelet Count 299 x10^3/uL (140-400) Neutrophils (%) (Auto) 78 % (31-73) H Lymphocytes (%) (Auto) 15 % (24-48) L Monocytes (%) (Auto) 5 % (0-9) Eosinophils (%) (Auto) 1 % (0-3) Basophils (%) (Auto) 1 % (0-3) Neutrophils # (Auto) 11.6 x10^3/uL (1.8-7.7) H Lymphocytes # (Auto) 2.2 x10^3/uL (1.0-4.8) Monocytes # (Auto) 0.8 x10^3/uL (0.0-1.1) Eosinophils # (Auto) 0.1 x10^3/uL (0.0-0.7) Basophils # (Auto) 0.1 x10^3/uL (0.0-0.2) Sodium Level 141 mmol/L (136-145) Potassium Level 3.3 mmol/L (3.5-5.1) L Chloride Level 104 mmol/L (98-107) Carbon Dioxide Level 28 mmol/L (21-32) Anion Gap 9 (6-14) Blood Urea Nitrogen 8 mg/dL (7-20) Creatinine 0.7 mg/dL (0.6-1.0) Estimated GFR (Cockcroft-Gault) 93.6 BUN/Creatinine Ratio 11 (6-20) Glucose Level 69 mg/dL (70-99) L Calcium Level 9.9 mg/dL (8.5-10.1) Magnesium Level 1.9 mg/dL (1.8-2.4) Total Bilirubin 0.5 mg/dL (0.2-1.0) Aspartate Amino Transferase (AST) 48 U/L (15-37) H Alanine Aminotransferase (ALT) 97 U/L (14-59) H Alkaline Phosphatase 115 U/L (46-116) Total Protein 7.9 g/dL (6.4-8.2) Albumin 3.8 g/dL (3.4-5.0) Albumin/Globulin Ratio 0.9 (1.0-1.7) L Laboratory Tests 03/29/19 19:00 Laboratory Tests 03/29/19 19:00 EKG EKG [] Radiology/Procedures Radiology/Procedures PROCEDURE: CT ABD PELV W/ IV CONTRST ONLY Exam: CT abdomen and pelvis with contrast INDICATION: Right upper quadrant and lower quadrant abdominal pain TECHNIQUE: Sequential axial images through the abdomen and pelvis obtained following the administration of 75 mL of Omni 300 IV contrast. Sagittal and coronal reformatted images were reconstructed from the axial data and reviewed. Comparisons: 12/29/2018 FINDINGS: Heart size is normal. No pericardial effusion. Visualized lung bases are clear. No pleural effusion. 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 Otherwise, Liver, spleen, pancreas, and adrenals are unremarkable. Gallbladder surgically absent. Kidneys demonstrate symmetric enhancement. No perinephric inflammation or hydronephrosis. No renal or ureteral calculi are identified. Bladder is distended and appears thin-walled. Tiny focus of air is noted within the bladder. Uterus is surgically absent. No abnormal adnexal mass. Large and small bowel are unremarkable. Appendix is normal. No free intra-abdominal air or fluid. No obstruction. Abdominal aorta has a normal course and caliber. Abdominal vasculature is patent. No enlarged abdominal lymph nodes are identified. No suspicious osseous lesions or acute fractures. IMPRESSION: 1. No acute process identified within the abdomen or pelvis. 2. Postsurgical changes of hysterectomy and cholecystectomy 3. Normal appendix. No evidence for obstructive uropathy. [] Course & Med Decision Making Course & Med Decision Making Pertinent Labs and Imaging studies reviewed. (See chart for details) dx: hypoglycemia, R sided abdominal pain, adverse effect of medication 1808 Spoke with pharmacy, per pharmacist the half life of the mediation is 12 hours WBC 14.8, Kcl 3.3, blood sugar was 80 on arrival decreased to 53 at 1803; UA likely contaminated. CT abd/pelvis no acute findings. Pt was started on an IV drip of D5W at 150 ml/hr this was increased to 175 ml/hr at 2257 after RN notified of bedside blood glucose of 52. 8- Spoke with Dr. Trent and advised of pt. Will admit patient for observation. Advised Dr. Trent per pharmacy half life of Jardiance is 12 hours, pt took last dose of this medication at 1100 today. Prior to patient being taken to the floor pt wanted to sign out AMA, I discussed the risks of leaving before the medication wore off including a possible diabetic coma or if the patient's blood sugar dropped too much. Pt agreed to be admitted overnight after this discussion, will proceed with admission as planned. Dragon Disclaimer Dragon Disclaimer This electronic medical record was generated, in whole or in part, using a voice recognition dictation system. Departure Departure Impression: Primary Impression: Hypoglycemia Additional Impressions: Adverse effects of medication Right sided abdominal pain Disposition: ADMITTED INPATIENT Admitting Physician: LUANNE (gem) Referrals: JANET FULLER-Frederic (PCP) Problem Qualifiers Additional Impressions: Adverse effects of medication Encounter type: initial encounter Qualified Codes: T50.905A - Adverse effect of unspecified drugs, medicaments and biological substances, initial encounter TEO LAM APRN Mar 29, 2019 19:01
[2019-03-29 19:10] LABS: BASO # 0.1 x10^3/uL (0.0-0.2); BASO % 1 % (0-3); EOS # 0.1 x10^3/uL (0.0-0.7); EOS % 1 % (0-3); HEMATOCRIT 41.5 % (36.0-47.0); HEMOGLOBIN 14.3 g/dL (12.0-15.5); LYMPH # 2.2 x10^3/uL (1.0-4.8); LYMPH % 15 % (24-48); MEAN CORPUSCULAR HEMOGLOBIN 30 pg (25-35); MEAN CORPUSCULAR HGB CONC 35 g/dL (31-37); MEAN CORPUSCULAR VOLUME 86 fL (79-100); MONO # 0.8 x10^3/uL (0.0-1.1); MONO % 5 % (0-9); NEUT # 11.6 x10^3/uL (1.8-7.7); NEUT % 78 % (31-73); PLATELET COUNT 299 x10^3/uL (140-400); RED BLOOD COUNT 4.85 x10^6/uL (3.50-5.40); RED CELL DISTRIBUTION WIDTH 15.6 % (11.5-14.5); WHITE BLOOD COUNT 14.8 x10^3/uL (4.0-11.0)
[2019-03-29 19:22] LABS: CALCIUM 9.9 mg/dL (8.5-10.1); CREATININE 0.7 mg/dL (0.6-1.0); GFR 93.6; POTASSIUM 3.3 mmol/L (3.5-5.1)
[2019-03-29 19:29] LABS: ALBUMIN 3.8 g/dL (3.4-5.0); ALBUMIN/GLOBULIN RATIO 0.9 (1.0-1.7); TOTAL BILIRUBIN 0.5 mg/dL (0.2-1.0); TOTAL PROTEIN 7.9 g/dL (6.4-8.2)
--- NOTE | 2019-03-29 20:07 | RAD ---
Exam: CT abdomen and pelvis with contrast INDICATION: Right upper quadrant and lower quadrant abdominal pain TECHNIQUE: Sequential axial images through the abdomen and pelvis obtained following the administration of 75 mL of Omni 300 IV contrast. Sagittal and coronal reformatted images were reconstructed from the axial data and reviewed. Comparisons: 12/29/2018 FINDINGS: Heart size is normal. No pericardial effusion. Visualized lung bases are clear. No pleural effusion. 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 Otherwise, Liver, spleen, pancreas, and adrenals are unremarkable. Gallbladder surgically absent. Kidneys demonstrate symmetric enhancement. No perinephric inflammation or hydronephrosis. No renal or ureteral calculi are identified. Bladder is distended and appears thin-walled. Tiny focus of air is noted within the bladder. Uterus is surgically absent. No abnormal adnexal mass. Large and small bowel are unremarkable. Appendix is normal. No free intra-abdominal air or fluid. No obstruction. Abdominal aorta has a normal course and caliber. Abdominal vasculature is patent. No enlarged abdominal lymph nodes are identified. No suspicious osseous lesions or acute fractures. IMPRESSION: 1. No acute process identified within the abdomen or pelvis. 2. Postsurgical changes of hysterectomy and cholecystectomy 3. Normal appendix. No evidence for obstructive uropathy. Exposure: One or more of the following in the visualized dose reduction techniques were utilized for this examination: 1. Automated exposure control 2. Adjustment of the MA and/or KV according to patient size 3. Use of iterative of reconstructive technique Electronically signed by: Abiel Parra MD (03/29/2019 8:05 PM) [facility]
[2019-03-29] MEDS ORDERED: IV DEXTROSE 5% - 0.9 % NACL 1,000 ML IV ONE (21:00)
[2019-03-29] MEDS ORDERED: MORPHINE SULFATE 4 MG/ML VIAL. IV ONE (22:15)
[2019-03-29 23:00] VITALS: BP 100/53
[2019-03-29] MEDS ORDERED: ALPR1TAB6 PO (23:01)
[2019-03-29] MEDS ORDERED: DEXTROSE 50% 25 GM / 50ML DISP.SYRIN. IV ONE (23:09)
[2019-03-29] MEDS ORDERED: GABAPENTIN 300 MG CAPSULE. PO SCH (23:30)
[2019-03-29] MEDS ORDERED: ALPRAZolam 1 MG TABLET PO PRN (23:30)
[2019-03-29] MEDS ORDERED: traZODone 100 MG TABLET. PO SCH (23:30)
[2019-03-29] MEDS: DEXTROSE 50% 25 GM / 50ML DISP.SYRIN. IV PRN (23:37)
[2019-03-29] MEDS: IV DEXTROSE 10% 1,000 ML IV SCH (23:43)
--- NOTE | 2019-03-29 23:59 | NUR ---
The patient, RON REYNA, 38 y/o, F admitted by KALANI MCDONALD MD, was given written information regarding hospital policies, unit procedures and contact persons. patient transferred to room via wheelchair by ED staff member. Valuables were checked and noted. patient is laying in bed watching TV at this time. Blood glucose check at 2306 result 35. MD was paged and notified, PRN glucose was given IV, patient was also given juice, crackers, a lunch box, and a soda. Glucose rechecked after 15 minutes, result 197. Patient was also started on Dextrose 10% IV fluids at this time. This RN will continue to monitor this patient at this time.
[2019-03-30 03:00] VITALS: BP 92/55
[2019-03-30 07:00] VITALS: BP 91/52
[2019-03-30] MEDS ORDERED: PANTOPRAZOLE 40 MG TABLET.DR. PO SCH (07:30)
[2019-03-30] MEDS: IV DEXTROSE 10% 1,000 ML IV SCH (07:42)
[2019-03-30] MEDS ORDERED: DESVENLAFAXINE 25 MG TAB.ER.24H PO SCH (09:00)
[2019-03-30] MEDS: DEXTROSE 50% 25 GM / 50ML DISP.SYRIN. IV PRN (09:26)
[2019-03-30] MEDS ORDERED: DEXTROSE 50% 25 GM / 50ML DISP.SYRIN. IV PRN (09:30)
[2019-03-30] MEDS ORDERED: ACETAMINOPHEN 500 MG TABLET PO PRN (09:45)
[2019-03-30] MEDS ORDERED: NON FORMULARY ITEM (Dextroamphetamine/Amphetamine (Adderall 20 Mg Tablet) 20 MG) PO PRN (09:45)
[2019-03-30] MEDS ORDERED: MORPHINE SULFATE 2 MG/ML VIAL. IV PRN (09:45)
[2019-03-30] MEDS ORDERED: ONDANSETRON PF 4 MG/2 ML VIAL. IV PRN (09:45)
[2019-03-30] MEDS ORDERED: HYDROcodone/APAP 5/325MG 1 TAB TABLET PO PRN (09:45)
[2019-03-30] MEDS ORDERED: IBUPROFEN 400 MG TABLET. PO PRN (09:45)
[2019-03-30 11:00] VITALS: BP 101/63
--- NOTE | 2019-03-30 11:33 | PDOC1 ---
History and Physical Date of Admission Date of Admission DATE: 03/30/19 TIME: 11:29 Identification/Chief Complaint Chief Complaint low blood sugar Source Source: Caregiver, Chart review, Patient History of Present Illness History of Present Illness 38-year-old female who was recently started by her PCP on JArdiance as she could not tolerate metformin, was previously long time ago on insulin. Now she is persistently hypoglycemic despite D5 drip. Had a call last night, I had to start D10 drip. Still 69 blood sugar but feeding well and also on D10 drip. On ADA diet with unknown A1c. I have reconciled home meds except hypoglycemic agents. Still not ready to DC as blood sugars 69 despite D10 drip We'll see how she does throughout the day JArdiance half life is 12 hrs, expect hypoglycemia to resolve soon She did take maybe 2 doses of that for 2 days Past Medical History Cardiovascular: HTN GI: GERD Psych: Anxiety, Depression Endocrine: Diabetes Past Surgical History Past Surgical History: Cholecystectomy, Hysterectomy Family History Family History: Diabetes, Hypertension Social History Smoke: No ALCOHOL: none Drugs: None Current Medications Current Medications Current Medications Fentanyl Citrate (Fentanyl 2ml Vial) 50 mcg 1X ONCE IV Last administered on 03/29/19at 18:45; Start 03/29/19 at 18:45; Stop 03/29/19 at 18:46; Status DC Ondansetron HCl (Zofran) 4 mg 1X ONCE IV Last administered on 03/29/19at 18:45; Start 03/29/19 at 18:45; Stop 03/29/19 at 18:46; Status DC Iohexol (Omnipaque 300 Mg/ml) 75 ml 1X ONCE IV Last administered on 03/29/19at 18:45; Start 03/29/19 at 18:45; Stop 03/29/19 at 18:46; Status DC Info (CONTRAST GIVEN -- Rx MONITORING) 1 each PRN DAILY PRN MC SEE COMMENTS; Start 03/29/19 at 18:45; Stop 03/31/19 at 18:44 Dextrose 500 ml @ 150 mls/hr 1X STAT IV Last administered on 03/29/19at 20:04; Start 03/29/19 at 19:00; Stop 03/29/19 at 22:19; Status DC Dextrose/Sodium Chloride 1,000 ml @ 150 mls/hr 1X ONCE IV ; Start 03/29/19 at 21:00; Stop 03/29/19 at 23:21; Status DC Morphine Sulfate (Morphine Sulfate) 4 mg 1X ONCE IV Last administered on 03/29/19at 22:15; Start 03/29/19 at 22:15; Stop 03/29/19 at 22:16; Status DC Dextrose (Dextrose 50%-Water Syringe) 25 gm STK-MED ONCE IV ; Start 03/29/19 at 23:09; Stop 03/29/19 at 23:10; Status DC Dextrose 1,000 ml @ 100 mls/hr Q10H IV Last administered on 03/30/19at 07:42; Start 03/29/19 at 23:15 Dextrose (Dextrose 50%-Water Syringe) 25 gm PRN Q15MIN PRN IV SEE COMMENTS Last administered on 03/30/19at 09:26; Start 03/29/19 at 23:15 Alprazolam (Xanax) 1 mg PRN TID PRN PO ANXIETY / AGITATION Last administered on 03/29/19 23:36; Start 03/29/19 at 23:30 Gabapentin (Neurontin) 300 mg HS PO Last administered on 03/29/19 23:36; Start 03/29/19 at 23:30 Trazodone HCl (Desyrel) 100 mg QHS PO Last administered on 03/29/19 23:36; Start 03/29/19 at 23:30 Desvenlafaxine Succinate (Pristiq Er) 50 mg DAILY PO Last administered on 03/30/19at 07:41; Start 03/30/19 at 09:00 Pantoprazole Sodium (Protonix) 40 mg DAILYAC PO Last administered on 03/30/19at 07:41; Start 03/30/19 at 07:30 Dextrose (Dextrose 50%-Water Syringe) 12.5 gm PRN Q15MIN PRN IV SEE COMMENTS; Start 03/30/19 at 09:30; Stop 03/30/19 at 09:30; Status DC Ondansetron HCl (Zofran) 4 mg PRN Q6HRS PRN IV NAUSEA/VOMITING; Start 03/30/19 at 09:45 Morphine Sulfate (Morphine Sulfate) 2 mg PRN Q2HR PRN IV PAIN; Start 03/30/19 at 09:45 Acetaminophen/ Hydrocodone Bitart (Lortab 5/325) 1 tab PRN Q4HRS PRN PO PAIN; Start 03/30/19 at 09:45 Ibuprofen (Motrin) 400 mg PRN Q6HRS PRN PO INFLAMMATION; Start 03/30/19 at 09:45 Acetaminophen (Tylenol) 500 mg PRN Q6HRS PRN PO HEADACHE / TEMP; Start 03/30/19 at 09:45 Non-Formulary Medication (Black Coh[place] ) 540 mg DAILY PO ; Start 03/31/19 at 09:00; Stop 03/31/19 at 09:00; Status DC Non-Formulary Medication (Dextroamphetamine/ Amphetamine (Adderall 20 Mg Tablet)) 20 mg DAILY PRN PO ADHD; Start 03/30/19 at 09:45; Status UNV Active Scripts Active Reported Alprazolam 1 Mg Tablet 1 Mg PO PRN TID PRN Adderall 20 Mg Tablet (Dextroamphetamine/Amphetamine) 20 Mg Tablet 20 Mg PO DAILY PRN Pristiq Er (Desvenlafaxine Succinate) 50 Mg Tab.er.24h 1 Tab PO DAILY [place] 540 Mg Capsule 540 Mg PO DAILY Trazodone Hcl 100 Mg Tablet 1 Tab PO QHS Gabapentin (Gabapentin) 300 Mg Capsule 300 Mg PO HS Protonix (Pantoprazole Sodium) 20 Mg Tablet.dr 40 Mg PO DAILY Allergies Allergies: Coded Allergies: levofloxacin (Verified Allergy, Intermediate, Rash, 09/27/18) vancomycin (Verified Allergy, Intermediate, Rash, 09/27/18) ROS Review of System A 14 point ROS was completed with the following noted as positive: Other systems reviewed and negative. \CONSTITUTIONAL: No fever or chills EYES: No recent changes SKIN: No rash or itching CARDIOVASCULAR: No chest pain, syncope, palpitations, or edema RESPIRATORY: No SOB or cough GASTROINTESTINAL: No nausea, vomiting or abdominal pain NEUROLOGICAL: No headaches or weakness ENDOCRINE: No cold or heat intolerance GENITOURINARY: No urgency or frequency of urination MUSCULOSKELETAL: No back pain or joint pain LYMPHATICS: No enlarged lymph nodes PSYCHIATRIC: No anxiety or depression Physical Exam General: Alert, Oriented X3, Cooperative, No acute distress HEENT: Atraumatic, PERRLA, EOMI Lungs: Clear to auscultation Heart: S1S2, RRR, no thrills, no rubs, no gallops Cardiovascular: S1, S2 Breasts: Normal, Rt breast nml w/o mass, Lt breast nml w/o mass, Nipples normal Abdomen: Normal bowel sounds, Soft, No tenderness, No hepatosplenomegaly, No masses Extremities: No clubbing, No cyanosis, No edema, Normal pulses, No tenderness/swelling Skin: No rashes, No breakdown, No significant lesion Neuro: Normal gait, Normal speech, Strength at 5/5 X4 ext, Normal tone, Sensation intact, Cranial nerves 3-12 NL, Reflexes 2+ Psych/Mental Status: Mental status NL, Mood NL Vitals Vitals Vital Signs Date Time Temp Pulse Resp B/P (MAP) Pulse Ox O2 Delivery O2 Flow Rate FiO2 03/30/19 08:00 Room Air 03/30/19 07:00 97.7 81 16 91/52 (65) 92 97.7 Labs Labs Laboratory Tests Test 03/29/19 17:39 03/29/19 19:00 03/29/19 23:06 03/29/19 23:32 Urine Collection Type Unknown Urine Color Olive Urine Clarity Cloudy Urine pH 5.0 Urine Specific [place] >=1.030 Urine Protein Negative mg/dL (NEG-TRACE) Urine Glucose (UA) Negative mg/dL (NEG) Urine Ketones (Stick) Negative mg/dL (NEG) Urine Blood Large (NEG) Urine Nitrite Negative (NEG) Urine Bilirubin Small (NEG) Urine Urobilinogen Dipstick 0.2 mg/dL (0.2 mg/dL) Urine Leukocyte Esterase Moderate (NEG) Urine RBC >40 /HPF (0-2) Urine WBC 1-4 /HPF (0-4) Urine Squamous Epithelial Cells Many /LPF Urine Bacteria Many /HPF (0-FEW) Urine Mucus Mod /LPF White Blood Count 14.8 x10^3/uL (4.0-11.0) Red Blood Count 4.85 x10^6/uL (3.50-5.40) Hemoglobin 14.3 g/dL (12.0-15.5) Hematocrit 41.5 % (36.0-47.0) Mean Corpuscular Volume 86 fL (79-100) Mean Corpuscular Hemoglobin 30 pg (25-35) Mean Corpuscular Hemoglobin Concent 35 g/dL (31-37) Red Cell Distribution Width 15.6 % (11.5-14.5) Platelet Count 299 x10^3/uL (140-400) Neutrophils (%) (Auto) 78 % (31-73) Lymphocytes (%) (Auto) 15 % (24-48) Monocytes (%) (Auto) 5 % (0-9) Eosinophils (%) (Auto) 1 % (0-3) Basophils (%) (Auto) 1 % (0-3) Neutrophils # (Auto) 11.6 x10^3/uL (1.8-7.7) Lymphocytes # (Auto) 2.2 x10^3/uL (1.0-4.8) Monocytes # (Auto) 0.8 x10^3/uL (0.0-1.1) Eosinophils # (Auto) 0.1 x10^3/uL (0.0-0.7) Basophils # (Auto) 0.1 x10^3/uL (0.0-0.2) Sodium Level 141 mmol/L (136-145) Potassium Level 3.3 mmol/L (3.5-5.1) Chloride Level 104 mmol/L (98-107) Carbon Dioxide Level 28 mmol/L (21-32) Anion Gap 9 (6-14) Blood Urea Nitrogen 8 mg/dL (7-20) Creatinine 0.7 mg/dL (0.6-1.0) Estimated GFR (Cockcroft-Gault) 93.6 BUN/Creatinine Ratio 11 (6-20) Glucose Level 69 mg/dL (70-99) Calcium Level 9.9 mg/dL (8.5-10.1) Magnesium Level 1.9 mg/dL (1.8-2.4) Total Bilirubin 0.5 mg/dL (0.2-1.0) Aspartate Amino Transf (AST/SGOT) 48 U/L (15-37) Alanine Aminotransferase (ALT/SGPT) 97 U/L (14-59) Alkaline Phosphatase 115 U/L (46-116) Total Protein 7.9 g/dL (6.4-8.2) Albumin 3.8 g/dL (3.4-5.0) Albumin/Globulin Ratio 0.9 (1.0-1.7) Glucose (Fingerstick) 35 mg/dL (70-99) 197 mg/dL (70-99) Test 03/30/19:05 03/30/19 03:17 03/30/19 05:29 03/30/19 07:15 Glucose (Fingerstick) 110 mg/dL (70-99) 174 mg/dL (70-99) 124 mg/dL (70-99) 108 mg/dL (70-99) Test 03/30/19 09:16 03/30/19 09:46 Glucose (Fingerstick) 69 mg/dL (70-99) 238 mg/dL (70-99) Laboratory Tests Test 03/29/19 17:39 03/29/19 19:00 03/29/19 23:06 03/29/19 23:32 Urine Collection Type Unknown Urine Color Olive Urine Clarity Cloudy Urine pH 5.0 Urine Specific [place] >=1.030 Urine Protein Negative mg/dL (NEG-TRACE) Urine Glucose (UA) Negative mg/dL (NEG) Urine Ketones (Stick) Negative mg/dL (NEG) Urine Blood Large (NEG) Urine Nitrite Negative (NEG) Urine Bilirubin Small (NEG) Urine Urobilinogen Dipstick 0.2 mg/dL (0.2 mg/dL) Urine Leukocyte Esterase Moderate (NEG) Urine RBC >40 /HPF (0-2) Urine WBC 1-4 /HPF (0-4) Urine Squamous Epithelial Cells Many /LPF Urine Bacteria Many /HPF (0-FEW) Urine Mucus Mod /LPF White Blood Count 14.8 x10^3/uL (4.0-11.0) Red Blood Count 4.85 x10^6/uL (3.50-5.40) Hemoglobin 14.3 g/dL (12.0-15.5) Hematocrit 41.5 % (36.0-47.0) Mean Corpuscular Volume 86 fL (79-100) Mean Corpuscular Hemoglobin 30 pg (25-35) Mean Corpuscular Hemoglobin Concent 35 g/dL (31-37) Red Cell Distribution Width 15.6 % (11.5-14.5) Platelet Count 299 x10^3/uL (140-400) Neutrophils (%) (Auto) 78 % (31-73) Lymphocytes (%) (Auto) 15 % (24-48) Monocytes (%) (Auto) 5 % (0-9) Eosinophils (%) (Auto) 1 % (0-3) Basophils (%) (Auto) 1 % (0-3) Neutrophils # (Auto) 11.6 x10^3/uL (1.8-7.7) Lymphocytes # (Auto) 2.2 x10^3/uL (1.0-4.8) Monocytes # (Auto) 0.8 x10^3/uL (0.0-1.1) Eosinophils # (Auto) 0.1 x10^3/uL (0.0-0.7) Basophils # (Auto) 0.1 x10^3/uL (0.0-0.2) Sodium Level 141 mmol/L (136-145) Potassium Level 3.3 mmol/L (3.5-5.1) Chloride Level 104 mmol/L (98-107) Carbon Dioxide Level 28 mmol/L (21-32) Anion Gap 9 (6-14) Blood Urea Nitrogen 8 mg/dL (7-20) Creatinine 0.7 mg/dL (0.6-1.0) Estimated GFR (Cockcroft-Gault) 93.6 BUN/Creatinine Ratio 11 (6-20) Glucose Level 69 mg/dL (70-99) Calcium Level 9.9 mg/dL (8.5-10.1) Magnesium Level 1.9 mg/dL (1.8-2.4) Total Bilirubin 0.5 mg/dL (0.2-1.0) Aspartate Amino Transf (AST/SGOT) 48 U/L (15-37) Alanine Aminotransferase (ALT/SGPT) 97 U/L (14-59) Alkaline Phosphatase 115 U/L (46-116) Total Protein 7.9 g/dL (6.4-8.2) Albumin 3.8 g/dL (3.4-5.0) Albumin/Globulin Ratio 0.9 (1.0-1.7) Glucose (Fingerstick) 35 mg/dL (70-99) 197 mg/dL (70-99) Test 03/30/19 01:05 03/30/19 03:17 03/30/19 05:29 03/30/19 07:15 Glucose (Fingerstick) 110 mg/dL (70-99) 174 mg/dL (70-99) 124 mg/dL (70-99) 108 mg/dL (70-99) Test 03/30/19 09:16 03/30/19 09:46 Glucose (Fingerstick) 69 mg/dL (70-99) 238 mg/dL (70-99) VTE Prophylaxis Ordered VTE Prophylaxis Devices: Yes VTE Pharmacological Prophylaxi: Yes Assessment/Plan Assessment/Plan PErsistent hypoglycemia secondary to JArdiance DM 2 GERD, hypertension, anxiety NOS-chronic stable Plan: continue D10 Regular or ADA diet Can check A1c Will DC once blood sugars better and off any dextrose drips Discussed with her and RN, agreeable Full code KALANI MCDONALD MD Mar 30, 2019 11:33
[2019-03-31] MEDS ORDERED: BLACK COHOSH 540 MG PO SCH (09:00)
== END 2019-03-30 12:48 | disposition left against medical advice (07) | DRG 639 ==
LOC: ER 16:52 → 5 SOUTH 20:48 → OBSVTOIN 20:48
PROVIDERS: ADMIT Internal Medicine; ATTEND Internal Medicine
DX: E11.649 Type 2 diabetes mellitus with hypoglycemia without coma (principal); I10 Essential (primary) hypertension; K21.9 Gastro-esophageal reflux disease without esophagitis; K76.0 Fatty (change of) liver, not elsewhere classified; F41.9 Anxiety disorder, unspecified; Z53.21 Procedure and treatment not carried out due to patient leaving prior to being seen by health care provider; T50.995A Adverse effect of other drugs, medicaments and biological substances, initial encounter; Z82.49 Family history of ischemic heart disease and other diseases of the circulatory system; Z90.710 Acquired absence of both cervix and uterus; F32.9 Major depressive disorder, single episode, unspecified; Y92.89 Other specified places as the place of occurrence of the external cause; Z88.8 Allergy status to other drugs, medicaments and biological substances; Z83.3 Family history of diabetes mellitus; Z79.899 Other long term (current) drug therapy; Z79.4 Long term (current) use of insulin; T38.3X5A Adverse effect of insulin and oral hypoglycemic [antidiabetic] drugs, initial encounter
CPT/HCPCS: 36415; 74177; 80053; 81001; 82962; 83735; 85025; 87086; 96361; 96374; 96375; J2270; J2405; J3010; J7042; Q9967; 99285-25

== ENCOUNTER 2019-04-29 17:15 | Emergency (ER) | payer BC ==
[~2019-04-29] VITALS: Ht 162.6 cm; Wt 85.3 kg
[~2019-04-29 17:15] MED LIST changes: +ALPR1TAB6 PO; +CLON-77 PO; -CLON0.5T11 PO
[2019-04-29 18:02] VITALS: BP 148/77
[2019-04-29] MEDS ORDERED: IV NORMAL SALINE 1000ML BAG 1,000 ML IV SCH (18:02)
[2019-04-29 18:12] LABS: BILIRUBIN,URINE NEGATIVE (NEG); CLARITY,URINE CLEAR; COLOR,URINE YELLOW; NITRITE,URINE NEGATIVE (NEG); PROTEIN,URINE NEGATIVE (NEG-TRACE); UROBILINOGEN,URINE 0.2 mg/dL (0.2 mg/dL)
--- NOTE | 2019-04-29 18:18 | PHYS DOC ---
Past Medical History Past Medical History: Diabetes-Type II, Pancreatitis, Other Additional Past Medical Histor: NON-ALCHOL RELATED FATTY LIVER, HIDRADENITIS Past Surgical History: Cholecystectomy, Hysterectomy, Tonsillectomy Additional Past Surgical Histo: bilateral ankles, multiple abscess removal, breast reduction, hernia Alcohol Use: None Drug Use: None Adult General Chief Complaint Chief Complaint: HYPERGLYCEMIA HPI HPI Patient is a 39 year old female who presents with states that her glucose machine this morning said that her blood sugar was over 600. Patient states she has a maximum insulin of 60 units a day of Humalog and she's asked that out today tried to get it down. Patient states she has shortness of air, excessive thirst, left abdominal pain that wraps around to the left side and is dull and shooting that she rates a 7 out of 10, and she's vomited �2 after breakfast. Patient states she took 8 mg of Zofran today. Patient states for breakfast she ate corn flakes and for lunch she ate a turkey sandwich. Patient states she did eat a turkey sandwich down. Patient states she is also having urinary frequency. All the symptoms began today. Patient has a history of diabetes to she states that the hvac tech told her that her pancreas isn't working at all now. Patient has have neuropathies. Patient takes Humalog and Lantus. Patient also takes Pristiq, Adderall, gabapentin, Protonix, trazodone as needed, Xanax as needed, Zofran as needed. Review of Systems Review of Systems Constitutional: Denies fever or chills [] Eyes: Denies change in visual acuity, redness, or eye pain [] Respiratory: Denies cough. + shortness of breath [] Cardiovascular: No additional information not addressed in HPI [] GI: Left mid abdominal pain, nausea, vomiting, denies bloody stools or diarrhea [] : Her nares frequency Denies dysuria or hematuria [] Musculoskeletal: Denies back pain or joint pain [] Neurologic: Denies headache, focal weakness or sensory changes [] All other systems were reviewed and found to be within normal limits, except as documented in this note. Current Medications Current Medications Current Medications Medications (Trade) Dose Ordered Sig/[facility] Start Time Stop Time Status Last Admin Dose Admin Fentanyl Citrate (Fentanyl 2ml Vial) 50 mcg 1X ONCE 04/29/19 22:30 04/29/19 22:31 DC 04/29/19 22:43 50 MCG Info (CONTRAST GIVEN -- Rx MONITORING) 1 each PRN DAILY PRN 04/29/19 19:15 05/01/19 19:14 Insulin Human Regular (HumuLIN R VIAL) 15 unit 1X ONCE 04/29/19 19:30 04/29/19 19:34 DC 04/29/19 19:49 15 UNIT Iohexol (Omnipaque 300 Mg/ml) 60 ml 1X ONCE 04/29/19 19:15 04/29/19 19:16 DC Prochlorperazine Edisylate (Compazine) 10 mg 1X ONCE 04/29/19 19:00 04/29/19 19:01 DC 04/29/19 19:49 10 MG Sodium Chloride 1,000 ml @ 1,000 mls/hr 1X ONCE 04/29/19 19:15 04/29/19 20:14 DC 04/29/19 19:49 1,000 MLS/HR Allergies Allergies Allergies Coded Allergies Type Severity Reaction Last Updated Verified levofloxacin Allergy Intermediate Rash 09/27/18 Yes vancomycin Allergy Intermediate Rash 09/27/18 Yes Physical Exam Physical Exam Constitutional: Well developed, well nourished, no acute distress, non-toxic appearance. [] Cardiovascular:Heart rate regular rhythm, no murmur [] Lungs & Thorax: Bilateral breath sounds clear to auscultation [] Abdomen: Bowel sounds normal, soft, left mid tenderness, no masses, no pulsatile masses. [] Skin: Warm, dry, no erythema, no rash. [] Back: No tenderness, no CVA tenderness. [] Extremities: No tenderness, no cyanosis, no clubbing, ROM intact, no edema. [] Neurologic: Alert and oriented X 3, normal motor function, normal sensory function, no focal deficits noted. [] Psychologic: Affect normal, judgement normal, mood normal. [] Current Patient Data Vital Signs Vital Signs Date Time Temp Pulse Resp B/P (MAP) Pulse Ox O2 Delivery O2 Flow Rate FiO2 04/29/19 22:43 98 Room Air 04/29/19 18:00 97.6 106 20 148/77 (100) 97.6 Lab Values Laboratory Tests Test 04/29/19 17:19 04/29/19 17:38 04/29/19 18:30 04/29/19 20:36 Urine Collection Type Unknown Urine Color Yellow Urine Clarity Clear Urine pH 5.0 Urine Specific Sheridan >=1.030 Urine Protein Negative mg/dL (NEG-TRACE) Urine Glucose (UA) >=1000 mg/dL (NEG) Urine Ketones (Stick) Negative mg/dL (NEG) Urine Blood Large (NEG) Urine Nitrite Negative (NEG) Urine Bilirubin Negative (NEG) Urine Urobilinogen Dipstick 0.2 mg/dL (0.2 mg/dL) Urine Leukocyte Esterase Negative (NEG) Urine RBC >40 /HPF (0-2) Urine WBC 0 /HPF (0-4) Urine Squamous Epithelial Cells Few /LPF Urine Bacteria 0 /HPF (0-FEW) POC Urine HCG, Qualitative Hcg negative (Negative) White Blood Count 8.9 x10^3/uL (4.0-11.0) Red Blood Count 4.93 x10^6/uL (3.50-5.40) Hemoglobin 14.6 g/dL (12.0-15.5) Hematocrit 43.2 % (36.0-47.0) Mean Corpuscular Volume 88 fL (79-100) Mean Corpuscular Hemoglobin 30 pg (25-35) Mean Corpuscular Hemoglobin Concent 34 g/dL (31-37) Red Cell Distribution Width 16.3 % (11.5-14.5) H Platelet Count 224 x10^3/uL (140-400) Neutrophils (%) (Auto) 67 % (31-73) Lymphocytes (%) (Auto) 25 % (24-48) Monocytes (%) (Auto) 6 % (0-9) Eosinophils (%) (Auto) 1 % (0-3) Basophils (%) (Auto) 1 % (0-3) Neutrophils # (Auto) 6.0 x10^3/uL (1.8-7.7) Lymphocytes # (Auto) 2.2 x10^3/uL (1.0-4.8) Monocytes # (Auto) 0.6 x10^3/uL (0.0-1.1) Eosinophils # (Auto) 0.1 x10^3/uL (0.0-0.7) Basophils # (Auto) 0.1 x10^3/uL (0.0-0.2) Sodium Level 132 mmol/L (136-145) L Potassium Level 4.1 mmol/L (3.5-5.1) Chloride Level 97 mmol/L (98-107) L Carbon Dioxide Level 24 mmol/L (21-32) Anion Gap 11 (6-14) Blood Urea Nitrogen 10 mg/dL (7-20) Creatinine 1.1 mg/dL (0.6-1.0) H Estimated GFR (Cockcroft-Gault) 55.3 BUN/Creatinine Ratio 9 (6-20) Glucose Level 686 mg/dL (70-99) *H Calcium Level 9.6 mg/dL (8.5-10.1) Total Bilirubin 0.3 mg/dL (0.2-1.0) Aspartate Amino Transferase (AST) 47 U/L (15-37) H Alanine Aminotransferase (ALT) 104 U/L (14-59) H Alkaline Phosphatase 124 U/L (46-116) H Total Protein 8.0 g/dL (6.4-8.2) Albumin 4.0 g/dL (3.4-5.0) Albumin/Globulin Ratio 1.0 (1.0-1.7) Glucose (Fingerstick) 373 mg/dL (70-99) H Test 04/29/19 23:25 Glucose (Fingerstick) 285 mg/dL (70-99) H Laboratory Tests 04/29/19 18:30 Laboratory Tests 04/29/19 18:30 EKG EKG [] Radiology/Procedures Radiology/Procedures [] Impressions: [facility] [address] [place], [place] [id number] IMAGING REPORT Signed PATIENT: RON REYNA ACCOUNT: [id number] : 1980 LOCATION: ER AGE: 39 SEX: F EXAM STATUS: REG ER ORD. PHYSICIAN: YARELIS LINK APRN REASON: FLANK PAIN, BLOOD IN URINE PROCEDURE: RENAL COMPLETE BILATERAL RENAL COMPLETE BILATERAL History: Flank pain, blood in urine Comparison: CT March 29, 2019 Findings: Multiple sonographic images of the kidneys and urinary bladder are submitted. Right kidney measured 12.8 x 5.9 x 5 cm. Left kidney measured 13 x 5.8 x 5.4 cm. There is no hydronephrosis of either kidney. Ureteral jets are seen in the urinary bladder bilaterally during exam. Urinary bladder morphology is within normal limits. Note is made of coarsening of hepatic echotexture. Abdominal aortic caliber is within normal limits up to 2.1 cm. There is segmental visualization of the inferior vena cava. Right renal resistive index 0.61, left 0.70. Impression: 1. No significant abnormality is demonstrated of the kidneys, no hydronephrosis of either kidney. 2. There is hepatic steatosis. Electronically signed by: Losi Souza MD (04/29/2019 10:09 PM) [facility] DICTATED and SIGNED BY: LOIS SOUZA MD DATE: 04/29/19 7985 [facility] [address] [place] [address] IMAGING REPORT Signed PATIENT: RON REYNA ACCOUNT: [id number] : 1980 LOCATION: ER AGE: 39 SEX: F EXAM STATUS: REG ER ORD. PHYSICIAN: YARELIS LINK APRN REASON: FLANK PAIN, BLOOD IN URINE PROCEDURE: KUB KUB INDICATION: Flank pain. COMPARISON: None. TECHNIQUE: Supine view of the abdomen was obtained. FINDINGS: Abdomen: Nonobstructive bowel gas pattern. No free air on this limited supine image. Moderate colonic stool. Lower Chest: Limited view of the lower chest demonstrates no acute abnormality. Skeletal Structures and Soft Tissues: No acute osseous abnormality. No suspicious calcifications. Cholecystectomy clips. IMPRESSION: Nonobstructive bowel gas pattern. Moderate colonic stool. Electronically signed by: Lois Smalls MD (04/29/2019 11:27 PM) [facility] DICTATED and SIGNED BY: LOIS SMALLS MD DATE: 04/29/19 0268 Course & Med Decision Making Course & Med Decision Making Patient is a 39 year old female who presents with states that her glucose machine this morning said that her blood sugar was over 600. Patient states she has a maximum insulin of 60 units a day of Humalog and she's asked that out today tried to get it down. Patient states she has shortness of air, excessive thirst, left abdominal pain that wraps around to the left side and is dull and shooting that she rates a 7 out of 10, and she's vomited �2 after breakfast. Patient states she took 8 mg of Zofran today. Patient states for breakfast she ate corn flakes and for lunch she ate a turkey sandwich. Patient states she did eat a turkey sandwich down. Patient states she is also having urinary frequency. All the symptoms began today. Patient has a history of diabetes to she states that the hvac tech told her that her pancreas isn't working at all now. Patient has have neuropathies. Patient takes Humalog and Lantus. Patient also takes Pristiq, Adderall, gabapentin, Protonix, trazodone as needed, Xanax as needed, Zofran as needed. Left mid abdomen is tender to palpation. Abdomen is soft and otherwise nontender. Alert and oriented. Speaks in full clear sentences. Skin pink warm and dry. Mucous membranes moist. PERRLA. Ambulatory with a steady gait. No extremity swelling. Lungs clear to auscultation all lobes. Patient denies chest pain, fever, recent illness, diarrhea, constipation, dizziness, weakness, burning with urination, headache, visual changes. No CVA tenderness. Renal US shows 1. No significant abnormality is demonstrated of the kidneys, no hydronephrosis of either kidney. 2. There is hepatic steatosis. Patient's blood sugar was 686. I ordered 15 units of regular insulin. Upon recheck patient's blood sugar went down to 373. Patient had blood in her urine but no infection. I ordered a renal ultrasound and a KUB after talking to the radiologist because the patient has had several CT scans. Blood work otherwise unremarkable. Patient states she is feeling much better. No anion gap. KUB shows Nonobstructive bowel gas pattern. Moderate colonic stool. Patient to follow-up with her primary care provider. Patient keep close observation on her blood sugars. Patient states she is feeling better. Patient has constipation also. Dragon Disclaimer Dragon Disclaimer This electronic medical record was generated, in whole or in part, using a voice recognition dictation system. Departure Departure Impression: Primary Impression: Hyperglycemia Disposition: 01 HOME, SELF-CARE Condition: STABLE Referrals: JANET FULLER (PCP) Patient Instructions: Constipation, Adult, Hyperglycemia Additional Instructions: Follow-up with primary care provider. Take medications as prescribed. Drink plenty of fluids. YARELIS LINK APRN Apr 29, 2019 18:18
[2019-04-29 18:24] LABS: RBC,URINE >40 /HPF (0-2)
[2019-04-29 18:25] LABS: BACTERIA,URINE 0 /HPF (0-FEW); SQUAMOUS EPITHELIAL CELL,UR FEW /LPF; WBC,URINE 0 /HPF (0-4)
--- NOTE | 2019-04-29 18:37 | RAD ---
CHEST PA LATERAL History: Shortness of air Comparison: January 03, 2019 Findings: 2 views of the chest are submitted. There is mild likely atelectasis right lung base. There is no dependent pleural fluid or pneumothorax. Pericardial cardiac silhouette is within normal limits in size. Impression: 1. There is likely mild right base atelectasis, otherwise no evidence of acute cardiopulmonary disease. Electronically signed by: Bry Rooney MD (04/29/2019 6:34 PM) [facility]
[2019-04-29 18:39] LABS: BASO # 0.1 x10^3/uL (0.0-0.2); BASO % 1 % (0-3); EOS # 0.1 x10^3/uL (0.0-0.7); EOS % 1 % (0-3); HEMATOCRIT 43.2 % (36.0-47.0); HEMOGLOBIN 14.6 g/dL (12.0-15.5); LYMPH # 2.2 x10^3/uL (1.0-4.8); LYMPH % 25 % (24-48); MEAN CORPUSCULAR HEMOGLOBIN 30 pg (25-35); MEAN CORPUSCULAR HGB CONC 34 g/dL (31-37); MEAN CORPUSCULAR VOLUME 88 fL (79-100); MONO # 0.6 x10^3/uL (0.0-1.1); MONO % 6 % (0-9); NEUT % 67 % (31-73); PLATELET COUNT 224 x10^3/uL (140-400); RED BLOOD COUNT 4.93 x10^6/uL (3.50-5.40); RED CELL DISTRIBUTION WIDTH 16.3 % (11.5-14.5); WHITE BLOOD COUNT 8.9 x10^3/uL (4.0-11.0)
[2019-04-29 18:55] LABS: CALCIUM 9.6 mg/dL (8.5-10.1); CREATININE 1.1 mg/dL (0.6-1.0); GFR 55.3; TOTAL BILIRUBIN 0.3 mg/dL (0.2-1.0)
[2019-04-29 18:56] LABS: POTASSIUM 4.1 mmol/L (3.5-5.1)
[2019-04-29] MEDS ORDERED: PROCHLORPERAZINE 10 MG/2 ML VIAL. IV ONE (19:00)
[2019-04-29] MEDS ORDERED: fentaNYL PF VIAL 100 MCG/2 ML VIAL IV ONE ×2 (19:00→22:30)
[2019-04-29] MEDS ORDERED: IV NORMAL SALINE 1000ML BAG 1,000 ML IV ONE (19:15)
[2019-04-29] MEDS ORDERED: CONTRAST GIVEN. MC PRN (19:15)
[2019-04-29] MEDS ORDERED: IOHEXOL 300 MG/ML 100ML VIAL. IV ONE (19:15)
[2019-04-29] MEDS ORDERED: INSULIN REGULAR 100 UNIT/ML 3ML VIAL. IV ONE (19:30)
--- NOTE | 2019-04-29 22:12 | RAD ---
RENAL COMPLETE BILATERAL History: Flank pain, blood in urine Comparison: CT March 29, 2019 Findings: Multiple sonographic images of the kidneys and urinary bladder are submitted. Right kidney measured 12.8 x 5.9 x 5 cm. Left kidney measured 13 x 5.8 x 5.4 cm. There is no hydronephrosis of either kidney. Ureteral jets are seen in the urinary bladder bilaterally during exam. Urinary bladder morphology is within normal limits. Note is made of coarsening of hepatic echotexture. Abdominal aortic caliber is within normal limits up to 2.1 cm. There is segmental visualization of the inferior vena cava. Right renal resistive index 0.61, left 0.70. Impression: 1. No significant abnormality is demonstrated of the kidneys, no hydronephrosis of either kidney. 2. There is hepatic steatosis. Electronically signed by: Bry Rooney MD (04/29/2019 10:09 PM) [facility]
--- NOTE | 2019-04-29 23:29 | RAD ---
KUB INDICATION: Flank pain. COMPARISON: None. TECHNIQUE: Supine view of the abdomen was obtained. FINDINGS: Abdomen: Nonobstructive bowel gas pattern. No free air on this limited supine image. Moderate colonic stool. Lower Chest: Limited view of the lower chest demonstrates no acute abnormality. Skeletal Structures and Soft Tissues: No acute osseous abnormality. No suspicious calcifications. Cholecystectomy clips. IMPRESSION: Nonobstructive bowel gas pattern. Moderate colonic stool. Electronically signed by: Bry Smalls MD (04/29/2019 11:27 PM) [facility]
== END 2019-04-29 23:45 | disposition home or self-care (01) ==
LOC: ER 17:15
DX: E11.65 Type 2 diabetes mellitus with hyperglycemia (principal); R06.02 Shortness of breath; R11.2 Nausea with vomiting, unspecified; Z90.49 Acquired absence of other specified parts of digestive tract; Z90.710 Acquired absence of both cervix and uterus; Z90.89 Acquired absence of other organs; Z88.1 Allergy status to other antibiotic agents
CPT/HCPCS: 36415; 71046; 74018; 76770; 80053; 81001; 81025; 82962; 85025; 96361; 96374; 96375; 96376; 99285; J0780; J1815; J3010; J7030

== ENCOUNTER → 2019-05-16 | Day surgery (SDC) | payer BC ==
[~2019-05-16] VITALS: Ht 162.6 cm; Wt 86.0 kg
[~2019-05-16] MED LIST changes: +BUPIVACAINE-EPI 0.5%-1:200000 MPF 30 ML VIAL. INJ ONE; +DEXAMETHASONE SOD PHOS 4 MG/ML VIAL ONE; +DOCU-109 PO; +GELATIN SPONGE SIZE 100. ONE; +GLYCOPYRROLATE 1 MG/5 ML VIAL. ONE; +HYDROmorphone 2 MG/ML VIAL IV PRN; +INSULIN LISPRO 100 UNIT/ML 3ML VIAL for OP,RR ONLY. SQ PRN; +IV RINGERS,LACTATED 1000ML 1,000 ML IV SCH; +KETOROLAC 30 MG/ML VIAL. ONE; +LIDOCAINE 2% PF 5 ML VIAL. ONE; +MIDAZOLAM HCL/PF 2 MG/2 ML VIAL. ONE; +NEOSTIGMINE METHYLSULFATE 5 MG/5 ML SYRINGE. ONE; +ONDANSETRON PF 4 MG/2 ML VIAL. IV PRN; +ONDANSETRON PF 4 MG/2 ML VIAL. ONE; +PROCHLORPERAZINE 10 MG/2 ML VIAL. IV PRN; +PROPOFOL 20 ML IV ONE; +ROCURONIUM 50 MG/5 ML VIAL. ONE; +SEVOFLURANE 61 TO 120 MINUTES. IH ONE; +ceFAZolin 2GM PREMIX 2 GM/50 ML BAG IV ONE; +fentaNYL PF VIAL 100 MCG/2 ML VIAL IV PRN; +fentaNYL PF VIAL 100 MCG/2 ML VIAL ONE; +oxyCODONE/APAP 5/325 1 TAB TABLET PO ONE
--- NOTE | 2019-05-16 12:47 | PDOC4 ---
Operative Note Operative Note Operative Note: Preoperative Diagnosis: Internal and external hemorrhoids Postoperative Diagnosis: Same Procedure: Internal and external hemorrhoidectomy Surgeon: Sami Supervisor Data Processing: Nichelle PARIS Anesthesia: Gen. EBL: 10 mL Specimen: Hemorrhoids to pathology Drains: None Complications: None Indication: The patient is a 39-year-old female who is referred due to some dramatic hemorrhoids. She complains of persistent problems with bleeding, itching, and pain despite all other conservative measures. We discussed options and she strongly prefers surgical hemorrhoidectomy. The details and risks of surgery were noted. The risks include bleeding, infection, recurrence, pain, in continence, anesthetic risk, potential need for additional surgery or procedure. She understands and would like to proceed. Description: The patient was taken to the operating room and placed supine on the operating table. Gen. anesthesia was performed. She was then placed in prone jackknife. The perianal skin was prepped with Betadine and draped in a standard surgical manner. An initial rectal examination was performed. There was no evidence of any neoplastic masses. There was no sign of an inflammatory or infectious process. The patient had mixed hemorrhoids with both internal and external components. They were present in all three regions. Using primarily the LigaSure device we sequentially excised the involved hemorrhoidal tissue. Each region of hemorrhoidal tissue was fully excised and sent to pathology as a specimen. A few 3-0 Vicryl sutures were used to approximate some of the external skin. Hemostasis was good and no other gross abnormalities were noted. A gelfoam packing was placed in the anal canal and an external dressing was applied. The patient tolerated the procedure well and was sent to the recovery room in stable condition. At the end of the case all counts were correct. TIKI HOWELL MD May 16, 2019 12:47
--- NOTE | 2019-05-16 12:49 | DISCH ---
DISCHARGE INSTRUCTIONS Condition on Discharge Condition on Discharge: Stable Activity After Discharge Activity Instructions for Disc: Activity as tolerated Diet after Discharge Diet after Discharge: Regular Wound Incision Care Wound/Incision Care: Other, see below (sitz baths BID and after stools) Follow-Up Follow up with: Dr Howell in 2 weeks in the office, call for appt [phone] TIKI HOWELL MD May 16, 2019 12:49
[2019-05-16] MEDS: MORPHINE SULFATE 2 MG/ML VIAL. IV PRN ×2 (13:06→13:17)
[2019-05-16 13:45] VITALS: BP 102/35
--- NOTE | 2019-05-18 09:07 | PATHOLOGY ---
[facility] Accession Number: [id number] . 01 Material submitted: . hemorrhoids - HEMORRHOIDS . 01 Clinical history: . Hemorrhoids . 02 Diagnosis: "Hemorrhoids", hemorrhoidectomy: - Focally keratinized squamous mucosa and colonic mucosa with dilated submucosal vessels consistent with hemorrhoids. (CLW:grady; 05/17/2019) S 05/17/2019 1516 Local . 02 Electronically signed: . Diana Dorman MD, Pathologist NPI- [id number] . 01 Gross description: . The specimen is received in formalin, labeled "Elena, Renita, hemorrhoids", are eight garcia-purple, rubbery apparent hemorrhoids ranging from 1.0 cm up to 1.7 cm and measuring 2.6 x 2.0 x 1.0 cm in aggregate. Sectioning reveals a dark brown, hemorrhagic cut surface. Representatively submitted in A1-A2. ([facility]; 05/16/2019) [facility] 05/16/2019 1937 Local . 02 Pathologist provided ICD-10: K64.9 . 02 CPT . 106472 Specimen Comment: A courtesy copy of this report has been sent to Specimen Comment: [phone], . Specimen Comment: Report sent to / DR FULLER Performed at: 01 [facility] [address], [place] [id number] MD Jem Albrecht MD Phone: [phone] Performed at: 02 [facility] [address] [place], [place] [id number] MD Adria Pleitez MD Phone: [phone]
== END ==
LOC: SURG 09:05
PROVIDERS: ATTEND Surgery
DX: K64.8 Other hemorrhoids (principal); K64.4 Residual hemorrhoidal skin tags; Z98.890 Other specified postprocedural states; Z79.899 Other long term (current) drug therapy
CPT/HCPCS: 46260; 82962; 88304; A7015; J0696; J0780; J1100; J1885; J2001; J2250; J2270; J2405; J2704; J2710; J3010; J3490; A4461

== ENCOUNTER 2019-10-09 22:04 | Emergency (ER) | payer BC ==
[~2019-10-09] VITALS: Ht 162.6 cm; Wt 86.4 kg
[~2019-10-09 22:04] MED LIST changes: -BUPIVACAINE-EPI 0.5%-1:200000 MPF 30 ML VIAL. INJ ONE; +DESV100T PO; -DEXAMETHASONE SOD PHOS 4 MG/ML VIAL ONE; -DEXT20CA PO; +DEXT20CA17 PO; -GELATIN SPONGE SIZE 100. ONE; -GLYCOPYRROLATE 1 MG/5 ML VIAL. ONE; -HYDROmorphone 2 MG/ML VIAL IV PRN; +INSU100I11 SQ; -INSULIN LISPRO 100 UNIT/ML 3ML VIAL for OP,RR ONLY. SQ PRN; -IV RINGERS,LACTATED 1000ML 1,000 ML IV SCH; -KETOROLAC 30 MG/ML VIAL. ONE; -LIDOCAINE 2% PF 5 ML VIAL. ONE; -MIDAZOLAM HCL/PF 2 MG/2 ML VIAL. ONE; -NEOSTIGMINE METHYLSULFATE 5 MG/5 ML SYRINGE. ONE; -ONDANSETRON PF 4 MG/2 ML VIAL. IV PRN; -ONDANSETRON PF 4 MG/2 ML VIAL. ONE; -PROCHLORPERAZINE 10 MG/2 ML VIAL. IV PRN; -PROPOFOL 20 ML IV ONE; -ROCURONIUM 50 MG/5 ML VIAL. ONE; -SEVOFLURANE 61 TO 120 MINUTES. IH ONE; +TEMA15CA6 PO; +TRAZ-123 PO; -TRAZ-86 PO; -ceFAZolin 2GM PREMIX 2 GM/50 ML BAG IV ONE; -fentaNYL PF VIAL 100 MCG/2 ML VIAL IV PRN; -fentaNYL PF VIAL 100 MCG/2 ML VIAL ONE; -oxyCODONE/APAP 5/325 1 TAB TABLET PO ONE
[2019-10-09 22:18] VITALS: BP 125/80
== END 2019-10-09 22:32 | disposition left against medical advice (07) ==
LOC: ER 22:04
DX: R50.9 Fever, unspecified (principal); Z53.21 Procedure and treatment not carried out due to patient leaving prior to being seen by health care provider

== ENCOUNTER 2019-10-16 19:59 | Observation (INO) | payer BC ==
[~2019-10-16] VITALS: Ht 162.6 cm; Wt 86.4 kg
[2019-10-16 22:47] LABS: BASO % 1 % (0-3); EOS # 0.1 x10^3/uL (0.0-0.7); EOS % 1 % (0-3); HEMATOCRIT 41.7 % (36.0-47.0); HEMOGLOBIN 13.7 g/dL (12.0-15.5); LYMPH # 2.4 x10^3/uL (1.0-4.8); LYMPH % 28 % (24-48); MEAN CORPUSCULAR HEMOGLOBIN 28 pg (25-35); MEAN CORPUSCULAR HGB CONC 33 g/dL (31-37); MEAN CORPUSCULAR VOLUME 84 fL (79-100); MONO # 0.6 x10^3/uL (0.0-1.1); MONO % 7 % (0-9); NEUT # 5.6 x10^3/uL (1.8-7.7); NEUT % 64 % (31-73); PLATELET COUNT 251 x10^3/uL (140-400); RED BLOOD COUNT 4.96 x10^6/uL (3.50-5.40); RED CELL DISTRIBUTION WIDTH 16.9 % (11.5-14.5); WHITE BLOOD COUNT 8.7 x10^3/uL (4.0-11.0)
[2019-10-16 22:47] LABS: BILIRUBIN,URINE NEGATIVE (NEG); CLARITY,URINE CLEAR; COLOR,URINE YELLOW; NITRITE,URINE NEGATIVE (NEG); PH,URINE 5.5; PROTEIN,URINE NEGATIVE (NEG-TRACE); UROBILINOGEN,URINE 0.2 mg/dL (0.2 mg/dL)
[2019-10-16 22:51] LABS: BACTERIA,URINE 0 /HPF (0-FEW); RBC,URINE 20-40 /HPF (0-2); SQUAMOUS EPITHELIAL CELL,UR FEW /LPF; WBC,URINE RARE /HPF (0-4)
[2019-10-16 22:54] LABS: CORRECTED PCO2 46 mmHg; CORRECTED PH 7.37; CORRECTED PO2 39 mmHg; FIO2 ISTAT 21; VEN BASE EXCESS ISTAT 2 mmol/L (0-3); VEN GLUC ISTAT 473 mg/dL (70-99); VEN HCO3 ISTAT 27 mmol/L (24-28); VEN HCT ISTAT 40 % (36-40); VEN HGB ISTAT 13.6 g/dL (12-15); VEN ION CA ISTAT 1.23 mmol/L (1.13-1.32); VEN K ISTAT 4.1 mmol/L (3.5-5.0); VEN NA ISTAT 139 mmol/L (135-145); VEN O2 ISTAT 39 mmHg (20-40); VEN PCO2 ISTAT 46 mmHg (41-51); VEN PH ISTAT 7.37 (7.32-7.42); VEN SO2 ISTAT 72 %; VEN TCO2 ISTAT 28 mmol/L (21-32)
[2019-10-16] MEDS ORDERED: INSULIN REGULAR 100 UNIT/ML 3ML VIAL. IV ONE (23:00)
[2019-10-16] MEDS ORDERED: IV NORMAL SALINE 1000ML BAG 1,000 ML IV SCH (23:00)
[2019-10-16] MEDS ORDERED: INSULIN,REGULAR 100 UNIT DRIP 100 ML IV ONE (23:00)
[2019-10-16 23:09] LABS: CREATININE 0.9 mg/dL (0.6-1.0); GFR 69.7; POTASSIUM 4.1 mmol/L (3.5-5.1)
[2019-10-16 23:14] LABS: ALBUMIN 3.5 g/dL (3.4-5.0); ALBUMIN/GLOBULIN RATIO 0.9 (1.0-1.7); TOTAL BILIRUBIN 0.3 mg/dL (0.2-1.0); TOTAL PROTEIN 7.3 g/dL (6.4-8.2)
[2019-10-16] MEDS ORDERED: ONDANSETRON PF 4 MG/2 ML VIAL. IVP ONE (23:45)
[2019-10-16] MEDS ORDERED: MORPHINE SULFATE 4 MG/ML VIAL. IV ONE (23:45)
--- NOTE | 2019-10-17 00:34 | PHYS DOC ---
Past Medical History Past Medical History: Anxiety, Depression, Diabetes-Type II, Pancreatitis, Other Additional Past Medical Histor: NON-ALCHOL RELATED FATTY LIVER, HYDROADENITIS, HEARTBURN Past Surgical History: Cholecystectomy, Hysterectomy, Tonsillectomy Additional Past Surgical Histo: bilateral ankles, multiple abscess removal surgeries, breast reduction Smoking Status: Current Every Day Smoker Alcohol Use: None Drug Use: None Adult General Chief Complaint Chief Complaint: HYPERGLYCEMIA HPI HPI 39-year-old female presents emergency Department complaints of not feeling well, she has underlying history of diabetes, takes Lantus 120 units daily, Humalog 50 mg 3 times a day with meals. She describes blood sugar elevation 500s at home, nausea. She denies any diarrhea, fever or chills. Patient has had recent admission to [facility] within the last month for DKA. Patient states nothing makes her pain worse, nothing makes her pain better. She states she's had difficulty keeping by mouth down. Blood sugar remains 500s when emergency department. Review of Systems Review of Systems Constitutional: Denies fever or chills [] Respiratory: Denies cough or shortness of breath [] Cardiovascular: No additional information not addressed in HPI [] GI: Denies abdominal pain, + nausea, no vomiting, bloody stools or diarrhea [] : Denies dysuria or hematuria [] Musculoskeletal: Denies back pain or joint pain [] Neurologic: Denies headache, focal weakness or sensory changes [] All other systems were reviewed and found to be within normal limits, except as documented in this note. Current Medications Current Medications Current Medications Medications (Trade) Dose Ordered Sig/Taqueria Start Time Stop Time Status Last Admin Dose Admin Insulin Human Regular 100 ml @ 0 mls/hr 1X ONCE 10/16/19 23:00 10/16/19 23:01 DC 10/17/19 00:00 8.3 MLS/HR Insulin Human Regular (HumuLIN R VIAL) 10 unit 1X ONCE 10/16/19 23:00 10/16/19 23:01 DC 10/17/19 00:01 10 UNIT Morphine Sulfate (Morphine Sulfate) 4 mg 1X ONCE 10/16/19 23:45 10/16/19 23:46 DC 10/16/19 23:43 4 MG Ondansetron HCl (Zofran) 4 mg 1X ONCE 10/16/19 23:45 10/16/19 23:46 DC 10/16/19 23:42 4 MG Sodium Chloride 1,000 ml @ 1,000 mls/hr Q1H 10/16/19 23:00 10/16/19 23:59 DC 10/16/19 23:43 1,000 MLS/HR Allergies Allergies Allergies Coded Allergies Type Severity Reaction Last Updated Verified levofloxacin Allergy Intermediate Rash 05/13/19 Yes shellfish derived Allergy Intermediate RASH/ITCH 09/15/19 Yes vancomycin Allergy Intermediate Rash 05/13/19 Yes Physical Exam Physical Exam Constitutional: Well developed, well nourished, no acute distress, non-toxic appearance. [] HENT: Normocephalic, atraumatic, bilateral external ears normal, oropharynx moist, no oral exudates, nose normal. [] Eyes: PERRLA, EOMI, conjunctiva normal, no discharge. [] Cardiovascular:Heart rate regular rhythm, no murmur [] Lungs & Thorax: Bilateral breath sounds clear to auscultation [] Abdomen: Bowel sounds normal, soft, mild luq tenderness, no masses, no pulsatile masses. [] Skin: Warm, dry, no erythema, no rash. [] Back: No tenderness, no CVA tenderness. [] Extremities: No tenderness, no edema. [] Neurologic: Alert and oriented X 3, no focal deficits noted. [] Psychologic: Affect normal, judgement normal, mood normal. [] Current Patient Data Vital Signs Vital Signs Date Time Temp Pulse Resp B/P (MAP) Pulse Ox O2 Delivery O2 Flow Rate FiO2 10/16/19 23:43 18 99 Room Air 10/16/19 21:00 97.9 110 144/98 (113) 97.9 Lab Values Laboratory Tests Test 10/16/19 20:40 10/16/19 21:04 10/16/19 21:45 10/16/19 22:50 Urine Collection Type Unknown Urine Color Yellow Urine Clarity Clear Urine pH 5.5 Urine Specific [place] >=1.030 Urine Protein Negative mg/dL (NEG-TRACE) Urine Glucose (UA) >=1000 mg/dL (NEG) Urine Ketones (Stick) Negative mg/dL (NEG) Urine Blood Large (NEG) Urine Nitrite Negative (NEG) Urine Bilirubin Negative (NEG) Urine Urobilinogen Dipstick 0.2 mg/dL (0.2 mg/dL) Urine Leukocyte Esterase Negative (NEG) Urine RBC 20-40 /HPF (0-2) Urine WBC Rare /HPF (0-4) Urine Squamous Epithelial Cells Few /LPF Urine Bacteria 0 /HPF (0-FEW) Urine Mucus Slight /LPF Glucose (Fingerstick) 451 mg/dL (70-99) H White Blood Count 8.7 x10^3/uL (4.0-11.0) Red Blood Count 4.96 x10^6/uL (3.50-5.40) Hemoglobin 13.7 g/dL (12.0-15.5) Hematocrit 41.7 % (36.0-47.0) Mean Corpuscular Volume 84 fL (79-100) Mean Corpuscular Hemoglobin 28 pg (25-35) Mean Corpuscular Hemoglobin Concent 33 g/dL (31-37) Red Cell Distribution Width 16.9 % (11.5-14.5) H Platelet Count 251 x10^3/uL (140-400) Neutrophils (%) (Auto) 64 % (31-73) Lymphocytes (%) (Auto) 28 % (24-48) Monocytes (%) (Auto) 7 % (0-9) Eosinophils (%) (Auto) 1 % (0-3) Basophils (%) (Auto) 1 % (0-3) Neutrophils # (Auto) 5.6 x10^3/uL (1.8-7.7) Lymphocytes # (Auto) 2.4 x10^3/uL (1.0-4.8) Monocytes # (Auto) 0.6 x10^3/uL (0.0-1.1) Eosinophils # (Auto) 0.1 x10^3/uL (0.0-0.7) Basophils # (Auto) 0.0 x10^3/uL (0.0-0.2) Sodium Level 139 mmol/L (136-145) Potassium Level 4.1 mmol/L (3.5-5.1) Chloride Level 102 mmol/L (98-107) Carbon Dioxide Level 26 mmol/L (21-32) Anion Gap 11 (6-14) Blood Urea Nitrogen 9 mg/dL (7-20) Creatinine 0.9 mg/dL (0.6-1.0) Estimated GFR (Cockcroft-Gault) 69.7 BUN/Creatinine Ratio 10 (6-20) Glucose Level 472 mg/dL (70-99) H 473 mg/dL (70-99) H Lactic Acid Level 2.9 mmol/L (0.4-2.0) H Calcium Level 9.0 mg/dL (8.5-10.1) Total Bilirubin 0.3 mg/dL (0.2-1.0) Aspartate Amino Transferase (AST) 54 U/L (15-37) H Alanine Aminotransferase (ALT) 86 U/L (14-59) H Alkaline Phosphatase 121 U/L (46-116) H Total Protein 7.3 g/dL (6.4-8.2) Albumin 3.5 g/dL (3.4-5.0) Albumin/Globulin Ratio 0.9 (1.0-1.7) L Acetone Level Neg (NEG) POC Hematocrit 40 % (36-40) Arterial Blood pH (Temp corrected) 7.37 Arterial Blood pCO2 (Temp correct) 46 mmHg Arterial Blood pO2 (Temp corrected) 39 mmHg POC Venous pH 7.37 (7.32-7.42) POC Venous pCO2 46 mmHg (41-51) POC Venous pO2 39 mmHg (20-40) POC Venous HCO3 27 mmol/L (24-28) POC Venous Blood Total CO2 28 mmol/L (21-32) POC Venous Blood O2 Saturation 72 % POC Venous Blood Base Excess 2 mmol/L (0-3) POC Venous Hemoglobin (Calc) 13.6 g/dL (12-15) POC FiO2 21 POC Sodium 139 mmol/L (135-145) POC Potassium 4.1 mmol/L (3.5-5.0) POC Ionized Calcium (Ya) 1.23 mmol/L (1.13-1.32) Laboratory Tests 10/16/19 21:45 Laboratory Tests 10/16/19 21:45 10/16/19 22:50 EKG EKG [] Radiology/Procedures Radiology/Procedures wet read 0044, no acute process appreciated on Chest Xray[] Course & Med Decision Making Course & Med Decision Making Pertinent Labs and Imaging studies reviewed. (See chart for details) []39-year-old female presents emergency Department complaints of not feeling well, she has underlying history of diabetes, takes Lantus 120 units daily, Humalog 50 mg 3 times a day with meals. She describes blood sugar elevation 500s at home, nausea. She denies any diarrhea, fever or chills. Patient has had recent admission to [facility] within the last month for DKA. Patient states nothing makes her pain worse, nothing makes her pain better. She states she's had difficulty keeping by mouth down. Blood sugar remains 500s when emergency department. Lbs reviewed/Imaging reviewed X-ray without relief evidence of acute process, lactic acid 2.9, sugar 470 - 490 Venous pH 7.37, serum acetone negative No evidence of acute infectious process, plan IV fluids, insulin drip Patient admitted for observation. We'll trend lactic acid. Dragon Disclaimer Dragon Disclaimer This electronic medical record was generated, in whole or in part, using a voice recognition dictation system. Critical Care Time Critical care time was 35 minutes exclusive of procedures. Departure Departure Impression: Primary Impression: Poorly controlled type 2 diabetes mellitus Additional Impression: Lactic acidosis Disposition: ADMITTED INPATIENT Admitting Physician: LUANNE Condition: STABLE Referrals: JANET FULLER-Frederic (PCP) Problem Qualifiers MILDRED HOUGH MD Oct 17, 2019 00:34
[2019-10-17] MEDS ORDERED: ONDANSETRON PF 4 MG/2 ML VIAL. IV PRN ×2 (01:00→08:45)
--- NOTE | 2019-10-17 03:15 | NUR ---
Patient admitted from ER to room 426 per wheelchair. Admitting diagnosis: uncontrolled diabetes and abdominal pain. Patient stated she woke up with abdominal pain on Thursday. Patient is alert and oriented X4. Patient is a poorly controlled diabetic. Blood glucose in ER 451. Patient was started on insulin drip. Patient has LUQ abdominal pain and has history of pancreatitis. In mild distress at this time. Will continue to monitor.
[2019-10-17 03:32] VITALS: BP 103/68
[2019-10-17] MEDS: MORPHINE SULFATE 2 MG/ML VIAL. IV PRN ×7 (04:03→21:53)
[2019-10-17] MEDS ORDERED: INSU100V6 SQ (04:34)
[2019-10-17] MEDS ORDERED: INSU100I13 SQ (04:34)
[2019-10-17 07:10] VITALS: BP 105/62
--- NOTE | 2019-10-17 07:55 | RAD ---
EXAM: PORTABLE CHEST 1V INDICATION: Left upper quadrant abdominal/rib pain.. TECHNIQUE: Single upright portable view COMPARISON: 04/29/2019 FINDINGS: The heart size is normal. The great vessels appear unremarkable. There is no hilar or mediastinal mass. The lungs are clear. There is no pleural effusion or pneumothorax. There are no significant osseous abnormalities. IMPRESSION: No active cardiopulmonary disease. Electronically signed by: Zena Murillo MD (10/17/2019 7:52 AM) [id number]
--- NOTE | 2019-10-17 08:38 | PDOC1 ---
History and Physical Date of Admission Date of Admission DATE: 10/17/19 TIME: 08:33 Identification/Chief Complaint Chief Complaint Not feeling well. Elevated blood glucose Source Source: Chart review, Patient History of Present Illness History of Present Illness Ms Parker is a 38 yo F w/ PMHx HTN, GERD, anxiety/depression, DM2, obesity who p/w not feeling well which developed over the past 12-24 hours. She has had nausea and 2x vomiting, no urinary symptoms, or no diarrhea. She has not had any fevers or chills or recent sick contacts. She has had a prior cholecystectomy, hernia surgery, as well as hysterectomy, but she still has an appendix. She was just treated here and [facility] for symptomatic hyperglycemia, DKA at [facility]. Denies chest pain, shortness of breath, blood in stool, dizziness, syncope, headache, palpitations, recent travel, chills, fever. Her initial blood sugar upon arrival in the emergency department is 472. Last year was recurrently admitted for hypoglycemia, now for hyperglycemia. Labs WNL with the exception of mild elevation in ALT and AST and glucose. Admitted on insulin GTT. Past Medical History Cardiovascular: HTN GI: GERD Psych: Anxiety, Depression Endocrine: Diabetes Past Surgical History Past Surgical History: Cholecystectomy, Hysterectomy Family History Family History: Diabetes, Hypertension Social History ALCOHOL: none Drugs: None Current Problem List Problem List Problems Medical Problems: (1) Lactic acidosis Status: Acute Current Medications Current Medications Current Medications Sodium Chloride 1,000 ml @ 1,000 mls/hr Q1H IV Last administered on 10/16/19at 23:43; Start 10/16/19 at 23:00; Stop 10/16/19 at 23:59; Status DC Insulin Human Regular (HumuLIN R VIAL) 10 unit 1X ONCE IV Last administered on 10/17/19at 00:01; Start 10/16/19 at 23:00; Stop 10/16/19 at 23:01; Status DC Insulin Human Regular 100 ml @ 0 mls/hr 1X ONCE IV Last administered on 10/17/19at 00:00; Start 10/16/19 at 23:00; Stop 10/16/19 at 23:01; Status DC Ondansetron HCl (Zofran) 4 mg 1X ONCE IVP Last administered on 10/16/19at 23:42; Start 10/16/19 at 23:45; Stop 10/16/19 at 23:46; Status DC Morphine Sulfate (Morphine Sulfate) 4 mg 1X ONCE IV Last administered on 10/16/19at 23:43; Start 10/16/19 at 23:45; Stop 10/16/19 at 23:46; Status DC Ondansetron HCl (Zofran) 4 mg PRN Q8HRS PRN IV NAUSEA/VOMITING 1ST CHOICE Last administered on 10/17/19at 08:19; Start 10/17/19 at 01:00; Stop 10/18/19 at 00:59 Morphine Sulfate (Morphine Sulfate) 2 mg PRN Q2HR PRN IV SEVERE PAIN 7-10 Last administered on 10/17/19at 08:19; Start 10/17/19 at 01:00; Stop 10/18/19 at 00:59 Active Scripts Active Reported Lantus Solostar (Insulin Glargine,Hum.rec.anlog) 100 Unit/1 Ml Insuln.pen 120 Unit SQ DAILYWLUN Humalog (Insulin Lispro) 100 Unit/1 Ml Vial 50 Unit SQ TIDWMEALS Pristiq Er (Desvenlafaxine Succinate) 100 Mg Tab.er.24h 1 Tab PO DAILY Colace (Docusate Sodium) 100 Mg Capsule 1 Cap PO PRN Q12HRS MDD 200 Alprazolam 1 Mg Tablet 2 Mg PO PRN TID PRN Adderall 20 Mg Tablet (Dextroamphetamine/Amphetamine) 20 Mg Tablet 20 Mg PO DAILY PRN Gabapentin (Gabapentin) 300 Mg Capsule 300 Mg PO PRN QHS PRN Protonix (Pantoprazole Sodium) 20 Mg Tablet.dr 40 Mg PO DAILY Allergies Allergies: Coded Allergies: levofloxacin (Verified Allergy, Intermediate, Rash, 05/13/19) shellfish derived (Verified Allergy, Intermediate, RASH/ITCH, 09/15/19) vancomycin (Verified Allergy, Intermediate, Rash, 05/13/19) ROS General: YES: Fatigue, Malaise; No: Chills, Night Sweats, Appetite, Other PSYCHOLOGICAL ROS: YES: Anxiety; No: Behavioral Disorder, Concentration difficultie, Decreased libido, Depression, Disorientation, Hallucinations, Hostility, Irritablity, Memory difficulties, Mood Swings, Obsessive thoughts, Physical abuse, Sexual abuse, Sleep disturbances, Suicidal ideation, Other Eyes: No Blurry vision, No Decreased vision, No Double vision, No Dry eyes, No Excessive tearing, No Eye Pain, No Itchy Eyes, No Loss of vision, No Photophobia, No Scotomata, No Uses contacts, No Uses glasses, No Other HEENT: No: Heacaches, Visual Changes, Hearing change, Nasal congestion, Nasal discharge, Oral lesions, Sinus pain, Sore Throat, Epistaxis, Sneezing, Snoring, Tinnitus, Vertigo, Vocal changes, Other ALLERGY AND IMMUNOLOGY: No: Hives, Insect Bite Sensitivity, Itchy/Watery Eyes, Nasal Congestion, Post Nasal Drip, Seasonal Allergies, Other Hematological and Lymphatic: No: Bleeding Problems, Blood Clots, Blood Transfusions, Brusing, Night Sweats, Pallor, Swollen Lymph Nodes, Other ENDOCRINE: No: Breast Changes, Galactorrhea, Hair Pattern Changes, Hot Flashes, Malaise/lethargy, Mood Swings, Palpitations, Polydipsia/polyuria, Skin Changes, Temperature Intolerance, Unexpected Weight Changes, Other Breast: No New/Changing Breast Lumps, No Nipple changes, No Nipple discharge, No Other Respiratory: No: Cough, Hemoptysis, Orthopnea, Pleuritic Pain, Shortness of breath, SOB with excertion, Sputum Changes, Stridor, Tachypnea, Wheezing, Other Cardiovascular: No Chest Pain, No Palpitations, No Orthopnea, No Paroxysmal Noc. Dyspnea, No Edema, No Lt Headedness, No Other Gastrointestinal: No Nausea, No Vomiting, No Abdominal Pain, No Diarrhea, No Constipation, No Melena, No Hematochezia, No Other Genitourinary: No Dysuria, No Frequency, No Incontinence, No Hematuria, No Retention, No Discharge, No Urgency, No Pain, No Flank Pain, No Other, No , No , No , No , No , No , No Musculoskeletal: No Gait Disturbance, No Joint Pain, No Joint Stiffness, No Joint Swelling, No Muscle Pain, No Muscular Weakness, No Pain In:, No Swelling In:, No Other Neurological: No Behavorial Changes, No Bowel/Bladder ControlChng, No Confusion, No Dizziness, No Gait Disturbance, No Headaches, No Impaired Coord/balance, No Memory Loss, No Numbness/Tingling, No Seizures, No Speech P roblems, No Tremors, No Visual Changes, No Weakness, No Other Skin: No Dry Skin, No Eczema, No Hair Changes, No Lumps, No Mole Changes, No Mottling, No Nail Changes, No Pruritus, No Rash, No Skin Lesion Changes, No Other, No Acne Physical Exam General: Alert, Oriented X3, Cooperative, mild distress HEENT: Atraumatic, PERRLA, EOMI, Mucous membr. moist/pink Lungs: Clear to auscultation, Normal air movement Heart: S1S2, RRR, no thrills, no rubs, no gallops, no murmurs Abdomen: Normal bowel sounds, Soft, No tenderness, No hepatosplenomegaly, No masses Rectal Exam: not examined Extremities: No clubbing, No cyanosis, No edema, Normal pulses, No tenderness/swelling Skin: No rashes, No breakdown, No significant lesion Neuro: Normal gait, Normal speech, Strength at 5/5 X4 ext, Normal tone, Sensation intact, Cranial nerves 3-12 NL, Reflexes 2+ Psych/Mental Status: Mental status NL, Mood NL Vitals Vitals Vital Signs Date Time Temp Pulse Resp B/P (MAP) Pulse Ox O2 Delivery O2 Flow Rate FiO2 10/17/19 08:19 95 Room Air 10/17/19 07:10 97.8 83 14 105/62 (76) 97.8 Labs Labs Laboratory Tests Test 10/16/19 20:40 10/16/19 21:04 10/16/19 21:45 10/16/19 22:50 Urine Collection Type Unknown Urine Color Yellow Urine Clarity Clear Urine pH 5.5 Urine Specific [place] >=1.030 Urine Protein Negative mg/dL (NEG-TRACE) Urine Glucose (UA) >=1000 mg/dL (NEG) Urine Ketones (Stick) Negative mg/dL (NEG) Urine Blood Large (NEG) Urine Nitrite Negative (NEG) Urine Bilirubin Negative (NEG) Urine Urobilinogen Dipstick 0.2 mg/dL (0.2 mg/dL) Urine Leukocyte Esterase Negative (NEG) Urine RBC 20-40 /HPF (0-2) Urine WBC Rare /HPF (0-4) Urine Squamous Epithelial Cells Few /LPF Urine Bacteria 0 /HPF (0-FEW) Urine Mucus Slight /LPF Glucose (Fingerstick) 451 mg/dL (70-99) White Blood Count 8.7 x10^3/uL (4.0-11.0) Red Blood Count 4.96 x10^6/uL (3.50-5.40) Hemoglobin 13.7 g/dL (12.0-15.5) Hematocrit 41.7 % (36.0-47.0) Mean Corpuscular Volume 84 fL (79-100) Mean Corpuscular Hemoglobin 28 pg (25-35) Mean Corpuscular Hemoglobin Concent 33 g/dL (31-37) Red Cell Distribution Width 16.9 % (11.5-14.5) Platelet Count 251 x10^3/uL (140-400) Neutrophils (%) (Auto) 64 % (31-73) Lymphocytes (%) (Auto) 28 % (24-48) Monocytes (%) (Auto) 7 % (0-9) Eosinophils (%) (Auto) 1 % (0-3) Basophils (%) (Auto) 1 % (0-3) Neutrophils # (Auto) 5.6 x10^3/uL (1.8-7.7) Lymphocytes # (Auto) 2.4 x10^3/uL (1.0-4.8) Monocytes # (Auto) 0.6 x10^3/uL (0.0-1.1) Eosinophils # (Auto) 0.1 x10^3/uL (0.0-0.7) Basophils # (Auto) 0.0 x10^3/uL (0.0-0.2) Sodium Level 139 mmol/L (136-145) Potassium Level 4.1 mmol/L (3.5-5.1) Chloride Level 102 mmol/L (98-107) Carbon Dioxide Level 26 mmol/L (21-32) Anion Gap 11 (6-14) Blood Urea Nitrogen 9 mg/dL (7-20) Creatinine 0.9 mg/dL (0.6-1.0) Estimated GFR (Cockcroft-Gault) 69.7 BUN/Creatinine Ratio 10 (6-20) Glucose Level 472 mg/dL (70-99) 473 mg/dL (70-99) Lactic Acid Level 2.9 mmol/L (0.4-2.0) Calcium Level 9.0 mg/dL (8.5-10.1) Total Bilirubin 0.3 mg/dL (0.2-1.0) Aspartate Amino Transf (AST/SGOT) 54 U/L (15-37) Alanine Aminotransferase (ALT/SGPT) 86 U/L (14-59) Alkaline Phosphatase 121 U/L (46-116) Total Protein 7.3 g/dL (6.4-8.2) Albumin 3.5 g/dL (3.4-5.0) Albumin/Globulin Ratio 0.9 (1.0-1.7) Acetone Level Neg (NEG) Bedside Hematocrit 40 % (36-40) Arterial Blood pH (Temp corrected) 7.37 Arterial Blood pCO2 (Temp correct) 46 mmHg Arterial Blood pO2 (Temp corrected) 39 mmHg Bedside Venous pH 7.37 (7.32-7.42) Bedside Venous pCO2 46 mmHg (41-51) Bedside Venous pO2 39 mmHg (20-40) Bedside Venous HCO3 27 mmol/L (24-28) Bedside Venous Blood Total CO2 28 mmol/L (21-32) Bedside Venous Blood O2 Saturation 72 % Bedside Venous Blood Base Excess 2 mmol/L (0-3) POC Venous Hemoglobin (Calc) 13.6 g/dL (12-15) Bedside FiO2 21 Bedside Sodium 139 mmol/L (135-145) Bedside Potassium 4.1 mmol/L (3.5-5.0) Bedside Ionized Calcium (Ya) 1.23 mmol/L (1.13-1.32) Test 10/17/19 01:11 10/17/19 01:40 Glucose (Fingerstick) 393 mg/dL (70-99) Lactic Acid Level 2.8 mmol/L (0.4-2.0) Laboratory Tests Test 10/16/19 20:40 10/16/19 21:04 10/16/19 21:45 10/16/19 22:50 Urine Collection Type Unknown Urine Color Yellow Urine Clarity Clear Urine pH 5.5 Urine Specific [place] >=1.030 Urine Protein Negative mg/dL (NEG-TRACE) Urine Glucose (UA) >=1000 mg/dL (NEG) Urine Ketones (Stick) Negative mg/dL (NEG) Urine Blood Large (NEG) Urine Nitrite Negative (NEG) Urine Bilirubin Negative (NEG) Urine Urobilinogen Dipstick 0.2 mg/dL (0.2 mg/dL) Urine Leukocyte Esterase Negative (NEG) Urine RBC 20-40 /HPF (0-2) Urine WBC Rare /HPF (0-4) Urine Squamous Epithelial Cells Few /LPF Urine Bacteria 0 /HPF (0-FEW) Urine Mucus Slight /LPF Glucose (Fingerstick) 451 mg/dL (70-99) White Blood Count 8.7 x10^3/uL (4.0-11.0) Red Blood Count 4.96 x10^6/uL (3.50-5.40) Hemoglobin 13.7 g/dL (12.0-15.5) Hematocrit 41.7 % (36.0-47.0) Mean Corpuscular Volume 84 fL (79-100) Mean Corpuscular Hemoglobin 28 pg (25-35) Mean Corpuscular Hemoglobin Concent 33 g/dL (31-37) Red Cell Distribution Width 16.9 % (11.5-14.5) Platelet Count 251 x10^3/uL (140-400) Neutrophils (%) (Auto) 64 % (31-73) Lymphocytes (%) (Auto) 28 % (24-48) Monocytes (%) (Auto) 7 % (0-9) Eosinophils (%) (Auto) 1 % (0-3) Basophils (%) (Auto) 1 % (0-3) Neutrophils # (Auto) 5.6 x10^3/uL (1.8-7.7) Lymphocytes # (Auto) 2.4 x10^3/uL (1.0-4.8) Monocytes # (Auto) 0.6 x10^3/uL (0.0-1.1) Eosinophils # (Auto) 0.1 x10^3/uL (0.0-0.7) Basophils # (Auto) 0.0 x10^3/uL (0.0-0.2) Sodium Level 139 mmol/L (136-145) Potassium Level 4.1 mmol/L (3.5-5.1) Chloride Level 102 mmol/L (98-107) Carbon Dioxide Level 26 mmol/L (21-32) Anion Gap 11 (6-14) Blood Urea Nitrogen 9 mg/dL (7-20) Creatinine 0.9 mg/dL (0.6-1.0) Estimated GFR (Cockcroft-Gault) 69.7 BUN/Creatinine Ratio 10 (6-20) Glucose Level 472 mg/dL (70-99) 473 mg/dL (70-99) Lactic Acid Level 2.9 mmol/L (0.4-2.0) Calcium Level 9.0 mg/dL (8.5-10.1) Total Bilirubin 0.3 mg/dL (0.2-1.0) Aspartate Amino Transf (AST/SGOT) 54 U/L (15-37) Alanine Aminotransferase (ALT/SGPT) 86 U/L (14-59) Alkaline Phosphatase 121 U/L (46-116) Total Protein 7.3 g/dL (6.4-8.2) Albumin 3.5 g/dL (3.4-5.0) Albumin/Globulin Ratio 0.9 (1.0-1.7) Acetone Level Neg (NEG) Bedside Hematocrit 40 % (36-40) Arterial Blood pH (Temp corrected) 7.37 Arterial Blood pCO2 (Temp correct) 46 mmHg Arterial Blood pO2 (Temp corrected) 39 mmHg Bedside Venous pH 7.37 (7.32-7.42) Bedside Venous pCO2 46 mmHg (41-51) Bedside Venous pO2 39 mmHg (20-40) Bedside Venous HCO3 27 mmol/L (24-28) Bedside Venous Blood Total CO2 28 mmol/L (21-32) Bedside Venous Blood O2 Saturation 72 % Bedside Venous Blood Base Excess 2 mmol/L (0-3) POC Venous Hemoglobin (Calc) 13.6 g/dL (12-15) Bedside FiO2 21 Bedside Sodium 139 mmol/L (135-145) Bedside Potassium 4.1 mmol/L (3.5-5.0) Bedside Ionized Calcium (Ya) 1.23 mmol/L (1.13-1.32) Test 10/17/19 01:11 10/17/19 01:40 Glucose (Fingerstick) 393 mg/dL (70-99) Lactic Acid Level 2.8 mmol/L (0.4-2.0) Images Images CXR The heart size is normal. The great vessels appear unremarkable. There is no hilar or mediastinal mass. The lungs are clear. There is no pleural effusion or pneumothorax. There are no significant osseous abnormalities. IMPRESSION: No active cardiopulmonary disease. VTE Prophylaxis Ordered VTE Prophylaxis Devices: No VTE Pharmacological Prophylaxi: Yes Assessment/Plan Assessment/Plan A/P: Symptomatic hyperglycemia - on 120u glargine and 50u TID lispro at home, still in 400s Abdominal pain - with benign findings on US previously. Pain resolved after overnight insulin GTT. 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
[2019-10-17] MEDS ORDERED: GABAPENTIN 300 MG CAPSULE. PO PRN (08:45)
[2019-10-17] MEDS ORDERED: DOCUSATE SODIUM 100 MG CAPSULE. PO PRN (08:45)
[2019-10-17] MEDS ORDERED: DEXTROSE 50% 25 GM / 50ML DISP.SYRIN. IV PRN (08:45)
[2019-10-17] MEDS: PANTOPRAZOLE 40 MG TABLET.DR. PO SCH (09:18)
[2019-10-17] MEDS: INSULIN GLARGINE SYRINGE. SQ SCH ×2 (09:27→21:25)
[2019-10-17 10:59] VITALS: BP 98/66
[2019-10-17] MEDS: INSULIN LISPRO 300 UNITS/3 ML VIAL. SQ SCH ×5 (11:30→21:24)
--- NOTE | 2019-10-17 11:55 | NUR ---
SW following. Discussed with RN. Pt is from home with family, indp. RN advised no SW needs at this time. SW will continue to follow.
[2019-10-17 15:30] VITALS: BP 106/65
--- NOTE | 2019-10-17 16:26 | NUR ---
Patients blood sugar is 110, notified Dr. Rodriguez and received order to hold insulin before dinner.
[2019-10-17 19:00] VITALS: BP 104/57
[2019-10-17 23:00] VITALS: BP 109/58
[2019-10-18 03:00] VITALS: BP 101/62
[2019-10-18] MEDS: MORPHINE SULFATE 2 MG/ML VIAL. IV PRN ×2 (04:54→08:16)
[2019-10-18 07:00] VITALS: BP 92/44
[2019-10-18 07:03] LABS: BASO # 0.1 x10^3/uL (0.0-0.2); BASO % 1 % (0-3); EOS # 0.1 x10^3/uL (0.0-0.7); EOS % 2 % (0-3); HEMATOCRIT 37.9 % (36.0-47.0); HEMOGLOBIN 12.8 g/dL (12.0-15.5); LYMPH # 2.1 x10^3/uL (1.0-4.8); LYMPH % 28 % (24-48); MEAN CORPUSCULAR HEMOGLOBIN 28 pg (25-35); MEAN CORPUSCULAR HGB CONC 34 g/dL (31-37); MEAN CORPUSCULAR VOLUME 83 fL (79-100); MONO # 0.5 x10^3/uL (0.0-1.1); MONO % 7 % (0-9); NEUT # 4.8 x10^3/uL (1.8-7.7); NEUT % 63 % (31-73); PLATELET COUNT 207 x10^3/uL (140-400); RED BLOOD COUNT 4.58 x10^6/uL (3.50-5.40); RED CELL DISTRIBUTION WIDTH 16.8 % (11.5-14.5); WHITE BLOOD COUNT 7.7 x10^3/uL (4.0-11.0)
[2019-10-18 07:23] LABS: ALBUMIN 3.1 g/dL (3.4-5.0); ALBUMIN/GLOBULIN RATIO 0.9 (1.0-1.7); CALCIUM 9.4 mg/dL (8.5-10.1); CREATININE 0.6 mg/dL (0.6-1.0); GFR 111.3; POTASSIUM 3.8 mmol/L (3.5-5.1); TOTAL BILIRUBIN 0.6 mg/dL (0.2-1.0); TOTAL PROTEIN 6.6 g/dL (6.4-8.2)
--- NOTE | 2019-10-18 07:52 | PDOC ---
PROGRESS NOTES Chief Complaint Chief Complaint A/P: Symptomatic hyperglycemia - on 120u glargine and 50u TID lispro at home, still in 400s Abdominal pain - with benign findings on US previously. Pain resolved after overnight insulin GTT. 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 She has had nausea and 2x vomiting, no urinary symptoms, or no diarrhea. She has not had any fevers or chills or recent sick contacts. She has had a prior cholecystectomy, hernia surgery, as well as hysterectomy, but she still has an appendix. She was just treated here and [facility] for symptomatic hyperglycemia, DKA at [facility]. Denies chest pain, shortness of breath, blood in stool, dizziness, syncope, headache, palpitations, recent travel, chills, fever. Her initial blood sugar upon arrival in the emergency department is 472. Last year was recurrently admitted for hypoglycemia, now for hyperglycemia. Labs WNL with the exception of mild elevation in ALT and AST and glucose. Admitted on insulin GTT. Transitioned back to home insulin dosing yesterday, held her 50u Lispro evening dose, advised to adjust this. Glucose 117. No further pain or nausea. She is very concerned about a CTPA result from 10/05/2019 at [facility] where the read consisted of a 1x0.8cm right hilar lymph node, otherwise read was as follows: No axillary lymphadenopathy. A prominent right hilar lymph node measuring 1 x 0.8 cm. No mediastinal or hilar lymphadenopathy. Dependent opacities in the lower lobes likely atelectasis. No lobar consolidati on. No pleural effusion or pneumothorax. Heart is not enlarged. No pericardial effusion. Visualized Upper abdomen: Spleen is mildly enlarged measuring 14.5 cm. Left adrenal myelolipoma is again seen. Bones: No aggressive osseous lesion. IMPRESSION: Suboptimal contrast bolus. Within these constraints no pulmonary emboli to the level of the lobar branches. More peripheral vessels are not well assessed. Plan: Discharge today. She wishes to see pulmonology first. Vitals Vitals Vital Signs Date Time Temp Pulse Resp B/P (MAP) Pulse Ox O2 Delivery O2 Flow Rate FiO2 10/18/19 07:18 Room Air 10/18/19 07:16 92 10/18/19 07:00 98.2 70 16 92/44 (60) 98.2 Physical Exam General: Alert, Oriented X3, Cooperative, mild distress Lungs: Clear Abdomen: Normal bowel sounds, Soft, No tenderness, No hepatosplenomegaly, No masses Extremities: No clubbing, No cyanosis, No edema, Normal pulses, No tenderness/swelling Skin: No rashes, No breakdown, No significant lesion Labs LABS Laboratory Tests Test 10/17/19 17:04 10/18/19 06:22 Glucose (Fingerstick) 117 mg/dL (70-99) White Blood Count 7.7 x10^3/uL (4.0-11.0) Red Blood Count 4.58 x10^6/uL (3.50-5.40) Hemoglobin 12.8 g/dL (12.0-15.5) Hematocrit 37.9 % (36.0-47.0) Mean Corpuscular Volume 83 fL (79-100) Mean Corpuscular Hemoglobin 28 pg (25-35) Mean Corpuscular Hemoglobin Concent 34 g/dL (31-37) Red Cell Distribution Width 16.8 % (11.5-14.5) Platelet Count 207 x10^3/uL (140-400) Neutrophils (%) (Auto) 63 % (31-73) Lymphocytes (%) (Auto) 28 % (24-48) Monocytes (%) (Auto) 7 % (0-9) Eosinophils (%) (Auto) 2 % (0-3) Basophils (%) (Auto) 1 % (0-3) Neutrophils # (Auto) 4.8 x10^3/uL (1.8-7.7) Lymphocytes # (Auto) 2.1 x10^3/uL (1.0-4.8) Monocytes # (Auto) 0.5 x10^3/uL (0.0-1.1) Eosinophils # (Auto) 0.1 x10^3/uL (0.0-0.7) Basophils # (Auto) 0.1 x10^3/uL (0.0-0.2) Sodium Level 142 mmol/L (136-145) Potassium Level 3.8 mmol/L (3.5-5.1) Chloride Level 104 mmol/L (98-107) Carbon Dioxide Level 30 mmol/L (21-32) Anion Gap 8 (6-14) Blood Urea Nitrogen 8 mg/dL (7-20) Creatinine 0.6 mg/dL (0.6-1.0) Estimated GFR (Cockcroft-Gault) 111.3 BUN/Creatinine Ratio 13 (6-20) Glucose Level 201 mg/dL (70-99) Calcium Level 9.4 mg/dL (8.5-10.1) Total Bilirubin 0.6 mg/dL (0.2-1.0) Aspartate Amino Transf (AST/SGOT) 105 U/L (15-37) Alanine Aminotransferase (ALT/SGPT) 127 U/L (14-59) Alkaline Phosphatase 102 U/L (46-116) Total Protein 6.6 g/dL (6.4-8.2) Albumin 3.1 g/dL (3.4-5.0) Albumin/Globulin Ratio 0.9 (1.0-1.7) Assessment and Plan Assessmemt and Plan Problems Medical Problems: (1) Lactic acidosis Status: Acute Comment Review of Relevant I have reviewed the following items sharda (where applicable) has been applied. Labs Laboratory Tests Test 10/16/19 20:40 10/16/19 21:04 10/16/19 21:45 10/16/19 22:50 Urine Collection Type Unknown Urine Color Yellow Urine Clarity Clear Urine pH 5.5 Urine Specific Sheridan >=1.030 Urine Protein Negative mg/dL (NEG-TRACE) Urine Glucose (UA) >=1000 mg/dL (NEG) Urine Ketones (Stick) Negative mg/dL (NEG) Urine Blood Large (NEG) Urine Nitrite Negative (NEG) Urine Bilirubin Negative (NEG) Urine Urobilinogen Dipstick 0.2 mg/dL (0.2 mg/dL) Urine Leukocyte Esterase Negative (NEG) Urine RBC 20-40 /HPF (0-2) Urine WBC Rare /HPF (0-4) Urine Squamous Epithelial Cells Few /LPF Urine Bacteria 0 /HPF (0-FEW) Urine Mucus Slight /LPF Glucose (Fingerstick) 451 mg/dL (70-99) White Blood Count 8.7 x10^3/uL (4.0-11.0) Red Blood Count 4.96 x10^6/uL (3.50-5.40) Hemoglobin 13.7 g/dL (12.0-15.5) Hematocrit 41.7 % (36.0-47.0) Mean Corpuscular Volume 84 fL (79-100) Mean Corpuscular Hemoglobin 28 pg (25-35) Mean Corpuscular Hemoglobin Concent 33 g/dL (31-37) Red Cell Distribution Width 16.9 % (11.5-14.5) Platelet Count 251 x10^3/uL (140-400) Neutrophils (%) (Auto) 64 % (31-73) Lymphocytes (%) (Auto) 28 % (24-48) Monocytes (%) (Auto) 7 % (0-9) Eosinophils (%) (Auto) 1 % (0-3) Basophils (%) (Auto) 1 % (0-3) Neutrophils # (Auto) 5.6 x10^3/uL (1.8-7.7) Lymphocytes # (Auto) 2.4 x10^3/uL (1.0-4.8) Monocytes # (Auto) 0.6 x10^3/uL (0.0-1.1) Eosinophils # (Auto) 0.1 x10^3/uL (0.0-0.7) Basophils # (Auto) 0.0 x10^3/uL (0.0-0.2) Sodium Level 139 mmol/L (136-145) Potassium Level 4.1 mmol/L (3.5-5.1) Chloride Level 102 mmol/L (98-107) Carbon Dioxide Level 26 mmol/L (21-32) Anion Gap 11 (6-14) Blood Urea Nitrogen 9 mg/dL (7-20) Creatinine 0.9 mg/dL (0.6-1.0) Estimated GFR (Cockcroft-Gault) 69.7 BUN/Creatinine Ratio 10 (6-20) Glucose Level 472 mg/dL (70-99) 473 mg/dL (70-99) Lactic Acid Level 2.9 mmol/L (0.4-2.0) Calcium Level 9.0 mg/dL (8.5-10.1) Total Bilirubin 0.3 mg/dL (0.2-1.0) Aspartate Amino Transf (AST/SGOT) 54 U/L (15-37) Alanine Aminotransferase (ALT/SGPT) 86 U/L (14-59) Alkaline Phosphatase 121 U/L (46-116) Total Protein 7.3 g/dL (6.4-8.2) Albumin 3.5 g/dL (3.4-5.0) Albumin/Globulin Ratio 0.9 (1.0-1.7) Acetone Level Neg (NEG) Bedside Hematocrit 40 % (36-40) Arterial Blood pH (Temp corrected) 7.37 Arterial Blood pCO2 (Temp correct) 46 mmHg Arterial Blood pO2 (Temp corrected) 39 mmHg Bedside Venous pH 7.37 (7.32-7.42) Bedside Venous pCO2 46 mmHg (41-51) Bedside Venous pO2 39 mmHg (20-40) Bedside Venous HCO3 27 mmol/L (24-28) Bedside Venous Blood Total CO2 28 mmol/L (21-32) Bedside Venous Blood O2 Saturation 72 % Bedside Venous Blood Base Excess 2 mmol/L (0-3) POC Venous Hemoglobin (Calc) 13.6 g/dL (12-15) Bedside FiO2 21 Bedside Sodium 139 mmol/L (135-145) Bedside Potassium 4.1 mmol/L (3.5-5.0) Bedside Ionized Calcium (Ya) 1.23 mmol/L (1.13-1.32) Test 10/17/19 01:11 10/17/19 01:40 10/17/19 17:04 10/18/19 06:22 Glucose (Fingerstick) 393 mg/dL (70-99) 117 mg/dL (70-99) Lactic Acid Level 2.8 mmol/L (0.4-2.0) White Blood Count 7.7 x10^3/uL (4.0-11.0) Red Blood Count 4.58 x10^6/uL (3.50-5.40) Hemoglobin 12.8 g/dL (12.0-15.5) Hematocrit 37.9 % (36.0-47.0) Mean Corpuscular Volume 83 fL (79-100) Mean Corpuscular Hemoglobin 28 pg (25-35) Mean Corpuscular Hemoglobin Concent 34 g/dL (31-37) Red Cell Distribution Width 16.8 % (11.5-14.5) Platelet Count 207 x10^3/uL (140-400) Neutrophils (%) (Auto) 63 % (31-73) Lymphocytes (%) (Auto) 28 % (24-48) Monocytes (%) (Auto) 7 % (0-9) Eosinophils (%) (Auto) 2 % (0-3) Basophils (%) (Auto) 1 % (0-3) Neutrophils # (Auto) 4.8 x10^3/uL (1.8-7.7) Lymphocytes # (Auto) 2.1 x10^3/uL (1.0-4.8) Monocytes # (Auto) 0.5 x10^3/uL (0.0-1.1) Eosinophils # (Auto) 0.1 x10^3/uL (0.0-0.7) Basophils # (Auto) 0.1 x10^3/uL (0.0-0.2) Sodium Level 142 mmol/L (136-145) Potassium Level 3.8 mmol/L (3.5-5.1) Chloride Level 104 mmol/L (98-107) Carbon Dioxide Level 30 mmol/L (21-32) Anion Gap 8 (6-14) Blood Urea Nitrogen 8 mg/dL (7-20) Creatinine 0.6 mg/dL (0.6-1.0) Estimated GFR (Cockcroft-Gault) 111.3 BUN/Creatinine Ratio 13 (6-20) Glucose Level 201 mg/dL (70-99) Calcium Level 9.4 mg/dL (8.5-10.1) Total Bilirubin 0.6 mg/dL (0.2-1.0) Aspartate Amino Transf (AST/SGOT) 105 U/L (15-37) Alanine Aminotransferase (ALT/SGPT) 127 U/L (14-59) Alkaline Phosphatase 102 U/L (46-116) Total Protein 6.6 g/dL (6.4-8.2) Albumin 3.1 g/dL (3.4-5.0) Albumin/Globulin Ratio 0.9 (1.0-1.7) Laboratory Tests Test 10/17/19 17:04 10/18/19 06:22 Glucose (Fingerstick) 117 mg/dL (70-99) White Blood Count 7.7 x10^3/uL (4.0-11.0) Red Blood Count 4.58 x10^6/uL (3.50-5.40) Hemoglobin 12.8 g/dL (12.0-15.5) Hematocrit 37.9 % (36.0-47.0) Mean Corpuscular Volume 83 fL (79-100) Mean Corpuscular Hemoglobin 28 pg (25-35) Mean Corpuscular Hemoglobin Concent 34 g/dL (31-37) Red Cell Distribution Width 16.8 % (11.5-14.5) Platelet Count 207 x10^3/uL (140-400) Neutrophils (%) (Auto) 63 % (31-73) Lymphocytes (%) (Auto) 28 % (24-48) Monocytes (%) (Auto) 7 % (0-9) Eosinophils (%) (Auto) 2 % (0-3) Basophils (%) (Auto) 1 % (0-3) Neutrophils # (Auto) 4.8 x10^3/uL (1.8-7.7) Lymphocytes # (Auto) 2.1 x10^3/uL (1.0-4.8) Monocytes # (Auto) 0.5 x10^3/uL (0.0-1.1) Eosinophils # (Auto) 0.1 x10^3/uL (0.0-0.7) Basophils # (Auto) 0.1 x10^3/uL (0.0-0.2) Sodium Level 142 mmol/L (136-145) Potassium Level 3.8 mmol/L (3.5-5.1) Chloride Level 104 mmol/L (98-107) Carbon Dioxide Level 30 mmol/L (21-32) Anion Gap 8 (6-14) Blood Urea Nitrogen 8 mg/dL (7-20) Creatinine 0.6 mg/dL (0.6-1.0) Estimated GFR (Cockcroft-Gault) 111.3 BUN/Creatinine Ratio 13 (6-20) Glucose Level 201 mg/dL (70-99) Calcium Level 9.4 mg/dL (8.5-10.1) Total Bilirubin 0.6 mg/dL (0.2-1.0) Aspartate Amino Transf (AST/SGOT) 105 U/L (15-37) Alanine Aminotransferase (ALT/SGPT) 127 U/L (14-59) Alkaline Phosphatase 102 U/L (46-116) Total Protein 6.6 g/dL (6.4-8.2) Albumin 3.1 g/dL (3.4-5.0) Albumin/Globulin Ratio 0.9 (1.0-1.7) Medications Current Medications Sodium Chloride 1,000 ml @ 1,000 mls/hr Q1H IV Last administered on 10/16/19at 23:43; Start 10/16/19 at 23:00; Stop 10/16/19 at 23:59; Status DC Insulin Human Regular (HumuLIN R VIAL) 10 unit 1X ONCE IV Last administered on 10/17/19at 00:01; Start 10/16/19 at 23:00; Stop 10/16/19 at 23:01; Status DC Insulin Human Regular 100 ml @ 0 mls/hr 1X ONCE IV Last administered on 10/17/19at 00:00; Start 10/16/19 at 23:00; Stop 10/16/19 at 23:01; Status DC Ondansetron HCl (Zofran) 4 mg 1X ONCE IVP Last administered on 10/16/19at 23:42; Start 10/16/19 at 23:45; Stop 10/16/19 at 23:46; Status DC Morphine Sulfate (Morphine Sulfate) 4 mg 1X ONCE IV Last administered on 10/16/19at 23:43; Start 10/16/19 at 23:45; Stop 10/16/19 at 23:46; Status DC Ondansetron HCl (Zofran) 4 mg PRN Q8HRS PRN IV NAUSEA/VOMITING 1ST CHOICE Last administered on 10/17/19at 08:19; Start 10/17/19 at 01:00; Stop 10/17/19 at 08:38 ; Status DC Morphine Sulfate (Morphine Sulfate) 2 mg PRN Q2HR PRN IV SEVERE PAIN 7-10 Last administered on 10/18/19at 04:54; Start 10/17/19 at 01:00; Stop 10/19/19 at 00:59 Ondansetron HCl (Zofran) 4 mg PRN Q4HRS PRN IV NAUSEA/VOMITING 1ST CHOICE Last administered on 10/17/19at 18:36; Start 10/17/19 at 08:45 Docusate Sodium (Colace) 100 mg PRN Q12HRS PRN PO CONSTIPATION; Start 10/17/19 at 08:45 Gabapentin (Neurontin) 300 mg PRN QHS PRN PO NEUROGENIC PAIN; Start 10/17/19 at 08:45 Insulin Human Lispro (HumaLOG) 50 units TIDWMEALS SQ Last administered on 10/17/19at 11:30; Start 10/17/19 at 12:00 Insulin Glargine (Lantus Syringe) 60 unit BID SQ Last administered on 10/17/19at 21:25; Start 10/17/19 at 09:00 Pantoprazole Sodium (Protonix) 40 mg DAILYAC PO Last administered on 10/17/19at 09:18; Start 10/17/19 at 09:00 Insulin Human Lispro (HumaLOG) 0-9 UNITS TIDACHC SQ Last administered on 10/17/19at 21:24; Start 10/17/19 at 11:30 Dextrose (Dextrose 50%-Water Syringe) 12.5 gm PRN Q15MIN PRN IV SEE COMMENTS; Start 10/17/19 at 08:45 Active Scripts Active Reported Lantus Solostar (Insulin Glargine,Hum.rec.anlog) 100 Unit/1 Ml Insuln.pen 120 Unit SQ DAILYWLUN Humalog (Insulin Lispro) 100 Unit/1 Ml Vial 50 Unit SQ TIDWMEALS Pristiq Er (Desvenlafaxine Succinate) 100 Mg Tab.er.24h 1 Tab PO DAILY Colace (Docusate Sodium) 100 Mg Capsule 1 Cap PO PRN Q12HRS MDD 200 Alprazolam 1 Mg Tablet 2 Mg PO PRN TID PRN Adderall 20 Mg Tablet (Dextroamphetamine/Amphetamine) 20 Mg Tablet 20 Mg PO DAILY PRN Gabapentin (Gabapentin) 300 Mg Capsule 300 Mg PO PRN QHS PRN Protonix (Pantoprazole Sodium) 20 Mg Tablet.dr 40 Mg PO DAILY Vitals/I & O Vital Sign - Last 24 Hours 10/17/19 10/17/19 10/17/19 10/17/19 07:58 08:19 08:19 08:56 Pulse Ox 95 95 95 O2 Delivery Room Air Room Air Room Air Room Air 10/17/19 10/17/19 10/17/19 10/17/19 10:59 11:34 12:15 15:30 Temp 98.1 97.5 98.1 97.5 Pulse 85 74 Resp 16 16 B/P (MAP) 98/66 (77) 106/65 (79) Pulse Ox 94 94 94 93 O2 Delivery Room Air Room Air Room Air Room Air 10/17/19 10/17/19 10/17/19 10/17/19 15:49 16:28 18:36 19:00 Temp 97.9 97.9 Pulse 72 Resp 18 B/P (MAP) 104/57 (73) Pulse Ox 94 94 94 92 O2 Delivery Room Air Room Air Room Air Room Air 10/17/19 10/17/19 10/17/19 10/17/19 19:06 20:00 21:53 22:23 Resp 20 20 20 Pulse Ox 94 94 93 O2 Delivery Room Air Room Air Room Air Room Air 10/17/19 10/18/19 10/18/19 10/18/19 23:00 03:00 04:54 07:00 Temp 97.8 97.8 98.2 97.8 97.8 98.2 Pulse 75 85 70 Resp 18 18 18 16 B/P (MAP) 109/58 (75) 101/62 (75) 92/44 (60) Pulse Ox 93 92 92 92 O2 Delivery Room Air Room Air Room Air Room Air 10/18/19 10/18/19 07:16 07:18 Pulse Ox 92 O2 Delivery Room Air Room Air Intake and Output 10/17/19 10/17/19 10/18/19 15:00 23:00 07:00 Intake Total 300 ml 200 ml 600 ml Balance 300 ml 200 ml 600 ml JOHN PAUL ROMO MD Oct 18, 2019 07:52
[2019-10-18] MEDS: PANTOPRAZOLE 40 MG TABLET.DR. PO SCH (08:16)
[2019-10-18] MEDS: INSULIN GLARGINE SYRINGE. SQ SCH (08:21)
[2019-10-18] MEDS: INSULIN LISPRO 300 UNITS/3 ML VIAL. SQ SCH ×6 (08:22→16:18)
[2019-10-18 09:18] LABS: CHOLESTEROL/HDL RATIO 2.3
--- NOTE | 2019-10-18 10:00 | NUR ---
SW following. Discussed with RN. Pt is from home with family, up ad mesfin. RN advised no SW needs at this time. SW will continue to follow.
[2019-10-18] MEDS ORDERED: INSU100I13 SQ (10:46)
[2019-10-18] MEDS ORDERED: INSU100V6 SQ (10:46)
[2019-10-18 11:00] VITALS: BP 99/61
[2019-10-18] MEDS ORDERED: traMADol 50 MG TABLET PO ONE (11:15)
[2019-10-18 15:00] VITALS: BP 109/58
--- NOTE | 2019-10-18 15:07 | PDOC3 ---
Discharge Summary Visit Information Date of Admission: Oct 17, 2019 Date of Discharge: Oct 18, 2019 Admitting Diagnosis: Lactic acidosis Final Diagnosis Problems Medical Problems: (1) Lactic acidosis Status: Acute Brief Hospital Course Allergies Allergies Coded Allergies Type Severity Reaction Last Updated Verified levofloxacin Allergy Intermediate Rash 05/13/19 Yes shellfish derived Allergy Intermediate RASH/ITCH 09/15/19 Yes vancomycin Allergy Intermediate Rash 05/13/19 Yes Vital Signs Vital Signs Date Time Temp Pulse Resp B/P (MAP) Pulse Ox O2 Delivery O2 Flow Rate FiO2 10/18/19 11:12 92 Room Air 10/18/19 11:00 98.2 89 16 99/61 (74) 98.2 Lab Results Laboratory Tests Test 10/16/19 20:40 10/16/19 21:04 10/16/19 21:45 10/16/19 22:50 Urine Collection Type Unknown Urine Color Yellow Urine Clarity Clear Urine pH 5.5 Urine Specific [place] >=1.030 Urine Protein Negative mg/dL (NEG-TRACE) Urine Glucose (UA) >=1000 mg/dL (NEG) Urine Ketones (Stick) Negative mg/dL (NEG) Urine Blood Large (NEG) Urine Nitrite Negative (NEG) Urine Bilirubin Negative (NEG) Urine Urobilinogen Dipstick 0.2 mg/dL (0.2 mg/dL) Urine Leukocyte Esterase Negative (NEG) Urine RBC 20-40 /HPF (0-2) Urine WBC Rare /HPF (0-4) Urine Squamous Epithelial Cells Few /LPF Urine Bacteria 0 /HPF (0-FEW) Urine Mucus Slight /LPF Glucose (Fingerstick) 451 mg/dL (70-99) White Blood Count 8.7 x10^3/uL (4.0-11.0) Red Blood Count 4.96 x10^6/uL (3.50-5.40) Hemoglobin 13.7 g/dL (12.0-15.5) Hematocrit 41.7 % (36.0-47.0) Mean Corpuscular Volume 84 fL (79-100) Mean Corpuscular Hemoglobin 28 pg (25-35) Mean Corpuscular Hemoglobin Concent 33 g/dL (31-37) Red Cell Distribution Width 16.9 % (11.5-14.5) Platelet Count 251 x10^3/uL (140-400) Neutrophils (%) (Auto) 64 % (31-73) Lymphocytes (%) (Auto) 28 % (24-48) Monocytes (%) (Auto) 7 % (0-9) Eosinophils (%) (Auto) 1 % (0-3) Basophils (%) (Auto) 1 % (0-3) Neutrophils # (Auto) 5.6 x10^3/uL (1.8-7.7) Lymphocytes # (Auto) 2.4 x10^3/uL (1.0-4.8) Monocytes # (Auto) 0.6 x10^3/uL (0.0-1.1) Eosinophils # (Auto) 0.1 x10^3/uL (0.0-0.7) Basophils # (Auto) 0.0 x10^3/uL (0.0-0.2) Sodium Level 139 mmol/L (136-145) Potassium Level 4.1 mmol/L (3.5-5.1) Chloride Level 102 mmol/L (98-107) Carbon Dioxide Level 26 mmol/L (21-32) Anion Gap 11 (6-14) Blood Urea Nitrogen 9 mg/dL (7-20) Creatinine 0.9 mg/dL (0.6-1.0) Estimated GFR (Cockcroft-Gault) 69.7 BUN/Creatinine Ratio 10 (6-20) Glucose Level 472 mg/dL (70-99) 473 mg/dL (70-99) Lactic Acid Level 2.9 mmol/L (0.4-2.0) Calcium Level 9.0 mg/dL (8.5-10.1) Total Bilirubin 0.3 mg/dL (0.2-1.0) Aspartate Amino Transf (AST/SGOT) 54 U/L (15-37) Alanine Aminotransferase (ALT/SGPT) 86 U/L (14-59) Alkaline Phosphatase 121 U/L (46-116) Total Protein 7.3 g/dL (6.4-8.2) Albumin 3.5 g/dL (3.4-5.0) Albumin/Globulin Ratio 0.9 (1.0-1.7) Acetone Level Neg (NEG) Bedside Hematocrit 40 % (36-40) Arterial Blood pH (Temp corrected) 7.37 Arterial Blood pCO2 (Temp correct) 46 mmHg Arterial Blood pO2 (Temp corrected) 39 mmHg Bedside Venous pH 7.37 (7.32-7.42) Bedside Venous pCO2 46 mmHg (41-51) Bedside Venous pO2 39 mmHg (20-40) Bedside Venous HCO3 27 mmol/L (24-28) Bedside Venous Blood Total CO2 28 mmol/L (21-32) Bedside Venous Blood O2 Saturation 72 % Bedside Venous Blood Base Excess 2 mmol/L (0-3) POC Venous Hemoglobin (Calc) 13.6 g/dL (12-15) Bedside FiO2 21 Bedside Sodium 139 mmol/L (135-145) Bedside Potassium 4.1 mmol/L (3.5-5.0) Bedside Ionized Calcium (Ya) 1.23 mmol/L (1.13-1.32) Test 10/17/19 01:11 10/17/19 01:40 10/17/19 17:04 10/18/19 06:22 Glucose (Fingerstick) 393 mg/dL (70-99) 117 mg/dL (70-99) Lactic Acid Level 2.8 mmol/L (0.4-2.0) White Blood Count 7.7 x10^3/uL (4.0-11.0) Red Blood Count 4.58 x10^6/uL (3.50-5.40) Hemoglobin 12.8 g/dL (12.0-15.5) Hematocrit 37.9 % (36.0-47.0) Mean Corpuscular Volume 83 fL (79-100) Mean Corpuscular Hemoglobin 28 pg (25-35) Mean Corpuscular Hemoglobin Concent 34 g/dL (31-37) Red Cell Distribution Width 16.8 % (11.5-14.5) Platelet Count 207 x10^3/uL (140-400) Neutrophils (%) (Auto) 63 % (31-73) Lymphocytes (%) (Auto) 28 % (24-48) Monocytes (%) (Auto) 7 % (0-9) Eosinophils (%) (Auto) 2 % (0-3) Basophils (%) (Auto) 1 % (0-3) Neutrophils # (Auto) 4.8 x10^3/uL (1.8-7.7) Lymphocytes # (Auto) 2.1 x10^3/uL (1.0-4.8) Monocytes # (Auto) 0.5 x10^3/uL (0.0-1.1) Eosinophils # (Auto) 0.1 x10^3/uL (0.0-0.7) Basophils # (Auto) 0.1 x10^3/uL (0.0-0.2) Sodium Level 142 mmol/L (136-145) Potassium Level 3.8 mmol/L (3.5-5.1) Chloride Level 104 mmol/L (98-107) Carbon Dioxide Level 30 mmol/L (21-32) Anion Gap 8 (6-14) Blood Urea Nitrogen 8 mg/dL (7-20) Creatinine 0.6 mg/dL (0.6-1.0) Estimated GFR (Cockcroft-Gault) 111.3 BUN/Creatinine Ratio 13 (6-20) Glucose Level 201 mg/dL (70-99) Calcium Level 9.4 mg/dL (8.5-10.1) Total Bilirubin 0.6 mg/dL (0.2-1.0) Aspartate Amino Transf (AST/SGOT) 105 U/L (15-37) Alanine Aminotransferase (ALT/SGPT) 127 U/L (14-59) Alkaline Phosphatase 102 U/L (46-116) Total Protein 6.6 g/dL (6.4-8.2) Albumin 3.1 g/dL (3.4-5.0) Albumin/Globulin Ratio 0.9 (1.0-1.7) Triglycerides Level 48 mg/dL (0-150) Cholesterol Level 95 mg/dL (0-200) LDL Cholesterol, Calculated 43 mg/dL (0-100) VLDL Cholesterol, Calculated 10 mg/dL (0-40) Non-HDL Cholesterol Calculated 53 mg/dL (0-129) HDL Cholesterol 42 mg/dL (40-60) Cholesterol/HDL Ratio 2.3 Laboratory Tests Test 10/17/19 17:04 10/18/19 06:22 Glucose (Fingerstick) 117 mg/dL (70-99) White Blood Count 7.7 x10^3/uL (4.0-11.0) Red Blood Count 4.58 x10^6/uL (3.50-5.40) Hemoglobin 12.8 g/dL (12.0-15.5) Hematocrit 37.9 % (36.0-47.0) Mean Corpuscular Volume 83 fL (79-100) Mean Corpuscular Hemoglobin 28 pg (25-35) Mean Corpuscular Hemoglobin Concent 34 g/dL (31-37) Red Cell Distribution Width 16.8 % (11.5-14.5) Platelet Count 207 x10^3/uL (140-400) Neutrophils (%) (Auto) 63 % (31-73) Lymphocytes (%) (Auto) 28 % (24-48) Monocytes (%) (Auto) 7 % (0-9) Eosinophils (%) (Auto) 2 % (0-3) Basophils (%) (Auto) 1 % (0-3) Neutrophils # (Auto) 4.8 x10^3/uL (1.8-7.7) Lymphocytes # (Auto) 2.1 x10^3/uL (1.0-4.8) Monocytes # (Auto) 0.5 x10^3/uL (0.0-1.1) Eosinophils # (Auto) 0.1 x10^3/uL (0.0-0.7) Basophils # (Auto) 0.1 x10^3/uL (0.0-0.2) Sodium Level 142 mmol/L (136-145) Potassium Level 3.8 mmol/L (3.5-5.1) Chloride Level 104 mmol/L (98-107) Carbon Dioxide Level 30 mmol/L (21-32) Anion Gap 8 (6-14) Blood Urea Nitrogen 8 mg/dL (7-20) Creatinine 0.6 mg/dL (0.6-1.0) Estimated GFR (Cockcroft-Gault) 111.3 BUN/Creatinine Ratio 13 (6-20) Glucose Level 201 mg/dL (70-99) Calcium Level 9.4 mg/dL (8.5-10.1) Total Bilirubin 0.6 mg/dL (0.2-1.0) Aspartate Amino Transf (AST/SGOT) 105 U/L (15-37) Alanine Aminotransferase (ALT/SGPT) 127 U/L (14-59) Alkaline Phosphatase 102 U/L (46-116) Total Protein 6.6 g/dL (6.4-8.2) Albumin 3.1 g/dL (3.4-5.0) Albumin/Globulin Ratio 0.9 (1.0-1.7) Triglycerides Level 48 mg/dL (0-150) Cholesterol Level 95 mg/dL (0-200) LDL Cholesterol, Calculated 43 mg/dL (0-100) VLDL Cholesterol, Calculated 10 mg/dL (0-40) Non-HDL Cholesterol Calculated 53 mg/dL (0-129) HDL Cholesterol 42 mg/dL (40-60) Cholesterol/HDL Ratio 2.3 Brief Hospital Course Ms Parker is a 38 yo F w/ PMHx HTN, GERD, anxiety/depression, DM2, obesity who p/w not feeling well which developed over the past 12-24 hours. She has had nausea and 2x vomiting, no urinary symptoms, or no diarrhea. She has not had any fevers or chills or recent sick contacts. She has had a prior cholecystectomy, hernia surgery, as well as hysterectomy, but she still has an appendix. She was just treated here and [facility] for symptomatic hyperglycemia, DKA at [facility]. Denies chest pain, shortness of breath, blood in stool, dizziness, syncope, headache, palpitations, recent travel, chills, fever. Her initial blood sugar upon arrival in the emergency department is 472. Last year was recurrently admitted for hypoglycemia, now for hyperglycemia. Labs WNL with the exception of mild elevation in ALT and AST and glucose. Admitted on insulin GTT. Transitioned back to home insulin dosing yesterday, held her 50u Lispro evening dose, advised to adjust this. Glucose 117. No further pain or nausea. She is very concerned about a CTPA result from 10/05/2019 at [place] where the read consisted of a 1x0.8cm right hilar lymph node, otherwise read was as follows: No axillary lymphadenopathy. A prominent right hilar lymph node measuring 1 x 0.8 cm. No mediastinal or hilar lymphadenopathy. Dependent opacities in the lower lobes likely atelectasis. No lobar consolidation. No pleural effusion or pneumothorax. Heart is not enlarged. No pericardial effusion. Visualized Upper abdomen: Spleen is mildly enlarged measuring 14.5 cm. Left adrenal myelolipoma is again seen. Bones: No aggressive osseous lesion. IMPRESSION: Suboptimal contrast bolus. Within these constraints no pulmonary emboli to the level of the lobar branches. More peripheral vessels are not well assessed. Consults: Pulmonology - Re small right hilar lymph node Problem list: Symptomatic hyperglycemia - on 120u glargine and 50u TID lispro at home, still in 400s Abdominal pain - with benign findings on US previously. Pain resolved after overnight insulin GTT. 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 HTN - cont home meds GERD - cont PPI Anxiety/depression - cont home meds DM2 - has endocrinology at [facility] Obesity - counseled on weight loss PHILLIPS - unless she has cirrhosis this is unlikely to be cause of her hypoglycemia , She may need liver elasticity testing or simply a liver biopsy outpatient Plan: Discharge today. She wishes to see pulmonology first. Greater than 30 minutes spent on discharge home with self care Discharge Information Condition at Discharge: Improved Follow Up: Weeks (1) Disposition/Orders: D/C to Home Scheduled Docusate Sodium (Colace) 100 Mg Capsule, 1 CAP PO PRN Q12HRS for constipation MDD 200, #30 (Reported) Entered as Reported by: PRASHANT CRUZ on 05/16/19 1328 Last Action: Continued on 10/17/19837 by JHON PAUL ROMO MD Insulin Glargine,Hum.rec.anlog (Lantus Solostar) 100 Unit/1 Ml Insuln.pen, 60 U NIT SQ BID for glucose for 30 Days, #15 Ref 3 Prescribed by: JOHN PAUL ROMO MD on 10/18/19 1046 Insulin Lispro (Humalog) 100 Unit/1 Ml Vial, 38 UNIT SQ TIDWMEALS for glucose for 30 Days, #30 Prescribed by: JOHN PAUL ROMO MD on 10/18/19 1046 Pantoprazole Sodium (Protonix) 20 Mg Tablet.dr, 40 MG PO DAILY for acid indigestion, (Reported) Entered as Reported by: JULIA EDGAR on 06/17/18 0015 Last Action: Converted on 10/17/19837 by JOHN PAUL ROMO MD Scheduled PRN Gabapentin (Gabapentin ) 300 Mg Capsule, 300 MG PO PRN QHS PRN for NEUROGENIC PAIN, (Reported) Entered as Reported by: LOUIS MACIEL on 09/07/18 1001 Last Action: Continued on 10/17/19837 by JOHN PAUL ROMO MD Discontinued Medications Alprazolam (Alprazolam) 1 Mg Tablet, 2 MG PO PRN TID PRN for ANXIETY / AGITATION, Ref 0 (Reported) Entered as Reported by: NAVEED WATTS on 03/29/19 230 Last Action: Edited on 10/17/19 0434 by ALISIA FLORES Desvenlafaxine Succinate (Pristiq Er) 100 Mg Tab.er.24h, 1 TAB PO DAILY for depression, #30 Ref 1 (Reported) Entered as Reported by: AGATHA JEREZ on 09/14/19 0210 Dextroamphetamine/Amphetamine (Adderall 20 Mg Tablet) 20 Mg Tablet, 20 MG PO DAILY PRN for ADHD, (Reported) Entered as Reported by: TRUDY MARIN on 02/25/19 0134 JOHN PAUL ROMO MD Oct 18, 2019 15:07
--- NOTE | 2019-10-18 16:35 | NUR ---
Discharge Note: RON REYNA PERU Discharge instructions and discharge home medications reviewed with Patient and a copy given. All questions have been answered and understanding verbalized. The following instructions and handouts were given: information about follow up appointments, medications, diet, etc. Discontinued lines and drains: IV line in right AC removed, catheter tip intact. Patient discharged to home with self care, patient ambulated to discharge vehicle.
--- NOTE | 2019-10-18 16:35 | PDOC ---
PULMONARY PROGRESS NOTES Vitals Vital Signs Date Time Temp Pulse Resp B/P (MAP) Pulse Ox O2 Delivery O2 Flow Rate FiO2 10/18/19 15:00 98.2 92 18 109/58 (75) 95 Room Air 98.2 Lungs: Clear Cardiovascular: S1, S2 Labs Laboratory Tests Test 10/16/19 20:40 10/16/19 21:04 10/16/19 21:45 10/16/19 22:50 Urine Collection Type Unknown Urine Color Yellow Urine Clarity Clear Urine pH 5.5 Urine Specific [place] >=1.030 Urine Protein Negative mg/dL (NEG-TRACE) Urine Glucose (UA) >=1000 mg/dL (NEG) Urine Ketones (Stick) Negative mg/dL (NEG) Urine Blood Large (NEG) Urine Nitrite Negative (NEG) Urine Bilirubin Negative (NEG) Urine Urobilinogen Dipstick 0.2 mg/dL (0.2 mg/dL) Urine Leukocyte Esterase Negative (NEG) Urine RBC 20-40 /HPF (0-2) Urine WBC Rare /HPF (0-4) Urine Squamous Epithelial Cells Few /LPF Urine Bacteria 0 /HPF (0-FEW) Urine Mucus Slight /LPF Glucose (Fingerstick) 451 mg/dL (70-99) White Blood Count 8.7 x10^3/uL (4.0-11.0) Red Blood Count 4.96 x10^6/uL (3.50-5.40) Hemoglobin 13.7 g/dL (12.0-15.5) Hematocrit 41.7 % (36.0-47.0) Mean Corpuscular Volume 84 fL (79-100) Mean Corpuscular Hemoglobin 28 pg (25-35) Mean Corpuscular Hemoglobin Concent 33 g/dL (31-37) Red Cell Distribution Width 16.9 % (11.5-14.5) Platelet Count 251 x10^3/uL (140-400) Neutrophils (%) (Auto) 64 % (31-73) Lymphocytes (%) (Auto) 28 % (24-48) Monocytes (%) (Auto) 7 % (0-9) Eosinophils (%) (Auto) 1 % (0-3) Basophils (%) (Auto) 1 % (0-3) Neutrophils # (Auto) 5.6 x10^3/uL (1.8-7.7) Lymphocytes # (Auto) 2.4 x10^3/uL (1.0-4.8) Monocytes # (Auto) 0.6 x10^3/uL (0.0-1.1) Eosinophils # (Auto) 0.1 x10^3/uL (0.0-0.7) Basophils # (Auto) 0.0 x10^3/uL (0.0-0.2) Sodium Level 139 mmol/L (136-145) Potassium Level 4.1 mmol/L (3.5-5.1) Chloride Level 102 mmol/L (98-107) Carbon Dioxide Level 26 mmol/L (21-32) Anion Gap 11 (6-14) Blood Urea Nitrogen 9 mg/dL (7-20) Creatinine 0.9 mg/dL (0.6-1.0) Estimated GFR (Cockcroft-Gault) 69.7 BUN/Creatinine Ratio 10 (6-20) Glucose Level 472 mg/dL (70-99) 473 mg/dL (70-99) Lactic Acid Level 2.9 mmol/L (0.4-2.0) Calcium Level 9.0 mg/dL (8.5-10.1) Total Bilirubin 0.3 mg/dL (0.2-1.0) Aspartate Amino Transf (AST/SGOT) 54 U/L (15-37) Alanine Aminotransferase (ALT/SGPT) 86 U/L (14-59) Alkaline Phosphatase 121 U/L (46-116) Total Protein 7.3 g/dL (6.4-8.2) Albumin 3.5 g/dL (3.4-5.0) Albumin/Globulin Ratio 0.9 (1.0-1.7) Acetone Level Neg (NEG) Bedside Hematocrit 40 % (36-40) Arterial Blood pH (Temp corrected) 7.37 Arterial Blood pCO2 (Temp correct) 46 mmHg Arterial Blood pO2 (Temp corrected) 39 mmHg Bedside Venous pH 7.37 (7.32-7.42) Bedside Venous pCO2 46 mmHg (41-51) Bedside Venous pO2 39 mmHg (20-40) Bedside Venous HCO3 27 mmol/L (24-28) Bedside Venous Blood Total CO2 28 mmol/L (21-32) Bedside Venous Blood O2 Saturation 72 % Bedside Venous Blood Base Excess 2 mmol/L (0-3) POC Venous Hemoglobin (Calc) 13.6 g/dL (12-15) Bedside FiO2 21 Bedside Sodium 139 mmol/L (135-145) Bedside Potassium 4.1 mmol/L (3.5-5.0) Bedside Ionized Calcium (Ya) 1.23 mmol/L (1.13-1.32) Test 10/17/19 01:11 10/17/19 01:40 10/17/19 17:04 10/18/19 06:22 Glucose (Fingerstick) 393 mg/dL (70-99) 117 mg/dL (70-99) Lactic Acid Level 2.8 mmol/L (0.4-2.0) White Blood Count 7.7 x10^3/uL (4.0-11.0) Red Blood Count 4.58 x10^6/uL (3.50-5.40) Hemoglobin 12.8 g/dL (12.0-15.5) Hematocrit 37.9 % (36.0-47.0) Mean Corpuscular Volume 83 fL (79-100) Mean Corpuscular Hemoglobin 28 pg (25-35) Mean Corpuscular Hemoglobin Concent 34 g/dL (31-37) Red Cell Distribution Width 16.8 % (11.5-14.5) Platelet Count 207 x10^3/uL (140-400) Neutrophils (%) (Auto) 63 % (31-73) Lymphocytes (%) (Auto) 28 % (24-48) Monocytes (%) (Auto) 7 % (0-9) Eosinophils (%) (Auto) 2 % (0-3) Basophils (%) (Auto) 1 % (0-3) Neutrophils # (Auto) 4.8 x10^3/uL (1.8-7.7) Lymphocytes # (Auto) 2.1 x10^3/uL (1.0-4.8) Monocytes # (Auto) 0.5 x10^3/uL (0.0-1.1) Eosinophils # (Auto) 0.1 x10^3/uL (0.0-0.7) Basophils # (Auto) 0.1 x10^3/uL (0.0-0.2) Sodium Level 142 mmol/L (136-145) Potassium Level 3.8 mmol/L (3.5-5.1) Chloride Level 104 mmol/L (98-107) Carbon Dioxide Level 30 mmol/L (21-32) Anion Gap 8 (6-14) Blood Urea Nitrogen 8 mg/dL (7-20) Creatinine 0.6 mg/dL (0.6-1.0) Estimated GFR (Cockcroft-Gault) 111.3 BUN/Creatinine Ratio 13 (6-20) Glucose Level 201 mg/dL (70-99) Calcium Level 9.4 mg/dL (8.5-10.1) Total Bilirubin 0.6 mg/dL (0.2-1.0) Aspartate Amino Transf (AST/SGOT) 105 U/L (15-37) Alanine Aminotransferase (ALT/SGPT) 127 U/L (14-59) Alkaline Phosphatase 102 U/L (46-116) Total Protein 6.6 g/dL (6.4-8.2) Albumin 3.1 g/dL (3.4-5.0) Albumin/Globulin Ratio 0.9 (1.0-1.7) Triglycerides Level 48 mg/dL (0-150) Cholesterol Level 95 mg/dL (0-200) LDL Cholesterol, Calculated 43 mg/dL (0-100) VLDL Cholesterol, Calculated 10 mg/dL (0-40) Non-HDL Cholesterol Calculated 53 mg/dL (0-129) HDL Cholesterol 42 mg/dL (40-60) Cholesterol/HDL Ratio 2.3 Laboratory Tests Test 10/17/19 17:04 10/18/19 06:22 Glucose (Fingerstick) 117 mg/dL (70-99) White Blood Count 7.7 x10^3/uL (4.0-11.0) Red Blood Count 4.58 x10^6/uL (3.50-5.40) Hemoglobin 12.8 g/dL (12.0-15.5) Hematocrit 37.9 % (36.0-47.0) Mean Corpuscular Volume 83 fL (79-100) Mean Corpuscular Hemoglobin 28 pg (25-35) Mean Corpuscular Hemoglobin Concent 34 g/dL (31-37) Red Cell Distribution Width 16.8 % (11.5-14.5) Platelet Count 207 x10^3/uL (140-400) Neutrophils (%) (Auto) 63 % (31-73) Lymphocytes (%) (Auto) 28 % (24-48) Monocytes (%) (Auto) 7 % (0-9) Eosinophils (%) (Auto) 2 % (0-3) Basophils (%) (Auto) 1 % (0-3) Neutrophils # (Auto) 4.8 x10^3/uL (1.8-7.7) Lymphocytes # (Auto) 2.1 x10^3/uL (1.0-4.8) Monocytes # (Auto) 0.5 x10^3/uL (0.0-1.1) Eosinophils # (Auto) 0.1 x10^3/uL (0.0-0.7) Basophils # (Auto) 0.1 x10^3/uL (0.0-0.2) Sodium Level 142 mmol/L (136-145) Potassium Level 3.8 mmol/L (3.5-5.1) Chloride Level 104 mmol/L (98-107) Carbon Dioxide Level 30 mmol/L (21-32) Anion Gap 8 (6-14) Blood Urea Nitrogen 8 mg/dL (7-20) Creatinine 0.6 mg/dL (0.6-1.0) Estimated GFR (Cockcroft-Gault) 111.3 BUN/Creatinine Ratio 13 (6-20) Glucose Level 201 mg/dL (70-99) Calcium Level 9.4 mg/dL (8.5-10.1) Total Bilirubin 0.6 mg/dL (0.2-1.0) Aspartate Amino Transf (AST/SGOT) 105 U/L (15-37) Alanine Aminotransferase (ALT/SGPT) 127 U/L (14-59) Alkaline Phosphatase 102 U/L (46-116) Total Protein 6.6 g/dL (6.4-8.2) Albumin 3.1 g/dL (3.4-5.0) Albumin/Globulin Ratio 0.9 (1.0-1.7) Triglycerides Level 48 mg/dL (0-150) Cholesterol Level 95 mg/dL (0-200) LDL Cholesterol, Calculated 43 mg/dL (0-100) VLDL Cholesterol, Calculated 10 mg/dL (0-40) Non-HDL Cholesterol Calculated 53 mg/dL (0-129) HDL Cholesterol 42 mg/dL (40-60) Cholesterol/HDL Ratio 2.3 Medications Active Scripts Medications Dose Route/Sig Max Daily Dose Days Date Category Lantus Solostar (Insulin Glargine,Hum.rec.anlog) 100 Unit/1 Ml Insuln.pen 60 Unit SQ BID 30 10/18/19 Rx Humalog (Insulin Lispro) 100 Unit/1 Ml Vial 38 Unit SQ TIDWMEALS 30 10/18/19 Rx Colace (Docusate Sodium) 100 Mg Capsule 1 Cap PO PRN Q12HRS MDD 200 05/16/19 Reported Gabapentin (Gabapentin) 300 Mg Capsule 300 Mg PO PRN QHS PRN 09/07/18 Reported Protonix (Pantoprazole Sodium) 20 Mg Tablet.dr 40 Mg PO DAILY 06/17/18 Reported Impression . dc home follow up in january with repeat ct chest ELO CELAYA MD Oct 18, 2019 16:35
--- NOTE | 2019-10-18 18:55 | CONS ---
DATE OF CONSULTATION: ATTENDING PHYSICIAN: Dr. Rodriguez. CONSULTING PHYSICIAN: Dr. Celaya. REASON FOR CONSULTATION: The patient is seen in pulmonary consultation at the request of Dr. Rodriguez for abnormal CT chest. HISTORY OF PRESENT ILLNESS: The patient is a 38-year-old who underwent a CT angiogram for PE protocol. There was a right hilar adenopathy. I was asked to see her in consultation. This time, she was admitted at [facility] with uncontrolled blood sugar. She is scheduled to go home later on today. She smokes. She has underlying COPD, gets treated approximately once a year for acute exacerbation, but never had admission for pneumonia. She does not wear oxygen at home. PAST MEDICAL HISTORY: Hypertension, gastroesophageal reflux, anxiety, depression, diabetes. She also has nonalcoholic fatty liver disease. PAST SURGICAL HISTORY: Status post cholecystectomy, hysterectomy. FAMILY HISTORY: Diabetes, hypertension. Grandmother had lung cancer. SOCIAL HISTORY: She smokes. REVIEW OF SYSTEMS: As indicated above, otherwise, a 10-point system was reviewed and negative. PHYSICAL EXAMINATION: VITAL SIGNS: Stable. O2 saturation was greater than 92%. HEENT: Eyes, the sclerae were nonicteric. NECK: Jugular venous distention was not elevated. No lymphadenopathy. CHEST: Full expansion. LUNGS: Adequate airway flow, no wheezes. CARDIOVASCULAR: Regular rate and rhythm with S1, S2, no S3. ABDOMEN: Soft, nontender, nondistended. EXTREMITIES: No clubbing, cyanosis or edema. LABORATORY DATA: Reviewed. White count was normal. Hemoglobin and hematocrit were noted. Toxicology screen was negative for acetones. UA was noted. IMPRESSION: 1. Abnormal CT chest revealing right hilar adenopathy. 2. Tobacco dependent. 3. Chronic obstructive pulmonary disease. 4. Uncontrolled diabetes. 5. Obesity. 6. History of nonalcoholic steatohepatitis. PLAN: 1. The patient will undergo a repeat CT chest in 4 months. 2. Okay to discharge home today. 3. The patient instructed on the importance of discontinuing tobacco use. 4. Outpatient PFTs. I do appreciate the privilege in sharing in the patient's care. ELO CELAYA MD DR: BARRY/janett JOB#: [id number] / [id number] JANET Alvarado
== END 2019-10-18 16:35 | disposition home or self-care (01) ==
LOC: ER 19:59 → 4 NORTH 10-17 02:16
PROVIDERS: ADMIT Internal Medicine; ATTEND Internal Medicine
DX: E11.65 Type 2 diabetes mellitus with hyperglycemia (principal); E87.2 Acidosis; I10 Essential (primary) hypertension; K21.9 Gastro-esophageal reflux disease without esophagitis; F41.9 Anxiety disorder, unspecified; E66.9 Obesity, unspecified; F17.210 Nicotine dependence, cigarettes, uncomplicated; Z90.49 Acquired absence of other specified parts of digestive tract; Z90.710 Acquired absence of both cervix and uterus; Z79.4 Long term (current) use of insulin
CPT/HCPCS: 36415; 71045; 80053; 80061; 81001; 82010; 82803; 82962; 83605; 85025; 96361; 96372; 96374; 96375; 96376; 99291; G0378; G0379; J1815; J2270; J2405; J7030

== ENCOUNTER 2019-10-30 17:48 | Inpatient (IN) | payer BC ==
[~2019-10-30] VITALS: Ht 162.6 cm; Wt 89.6 kg
[~2019-10-30 17:48] MED LIST changes: +INSU100V6 SQ
[2019-10-30] MEDS ORDERED: IV NORMAL SALINE 1000ML BAG 1,000 ML IV SCH (18:10)
[2019-10-30] MEDS ORDERED: INSULIN REGULAR 100 UNIT/ML 3ML VIAL. IV ONE ×2 (18:30→20:00)
[2019-10-30 18:32] LABS: BILIRUBIN,URINE NEGATIVE (NEG); CLARITY,URINE CLOUDY; COLOR,URINE YELLOW; NITRITE,URINE NEGATIVE (NEG); PROTEIN,URINE NEGATIVE (NEG-TRACE); UROBILINOGEN,URINE 0.2 mg/dL (0.2 mg/dL)
[2019-10-30] MEDS ORDERED: ONDANSETRON PF 4 MG/2 ML VIAL. ONE (18:38)
--- NOTE | 2019-10-30 18:42 | PHYS DOC ---
Past Medical History Past Medical History: Anxiety, Depression, Diabetes-Type II, Pancreatitis, Other Additional Past Medical Histor: NON-ALCHOL RELATED FATTY LIVER, HYDROADENITIS, HEARTBURN Past Surgical History: Cholecystectomy, Hysterectomy, Tonsillectomy Additional Past Surgical Histo: bilateral ankles, multiple abscess removal surgeries, breast reduction Smoking Status: Current Every Day Smoker Alcohol Use: None Drug Use: None Adult General Chief Complaint Chief Complaint: HYPERGLYCEMIA HPI HPI Patient is a 39 year old female who presents with complaint of elevated blood sugar for the last couple of days. Patient states that she checked her blood sugar at home and was 510. Patient does indicate that she has some nausea but is had no vomiting. She denies any diarrhea. She does indicate that she has some pain below her left breast that she describes a sharp and stabbing in nature.[] Review of Systems Review of Systems Constitutional: Denies fever or chills [] Respiratory: Denies cough or shortness of breath [] Cardiovascular: No additional information not addressed in HPI [] GI: Complains of left upper abdominal discomfort without vomiting or diarrhea [] : Denies dysuria or hematuria [] Neurologic: Denies headache, focal weakness or sensory changes [] All other systems were reviewed and found to be within normal limits, except as documented in this note. Current Medications Current Medications Current Medications Medications (Trade) Dose Ordered Sig/Taqueria Start Time Stop Time Status Last Admin Dose Admin Fentanyl Citrate (Fentanyl 2ml Vial) 25 mcg 1X ONCE 10/30/19 19:00 10/30/19 19:03 DC 10/30/19 19:12 25 MCG Insulin Human Regular (HumuLIN R VIAL) 10 unit 1X ONCE 10/30/19 20:00 10/30/19 20:01 DC 10/30/19 20:06 10 UNIT Ondansetron HCl (Zofran) 4 mg 1X ONCE 10/30/19 18:45 10/30/19 18:46 DC 10/30/19 18:43 4 MG Sodium Chloride 1,000 ml @ 1,000 mls/hr 1X ONCE 10/30/19 20:00 10/30/19 20:59 DC 10/30/19 20:03 1,000 MLS/HR Allergies Allergies Allergies Coded Allergies Type Severity Reaction Last Updated Verified levofloxacin Allergy Intermediate Rash 05/13/19 Yes shellfish derived Allergy Intermediate RASH/ITCH 09/15/19 Yes vancomycin Allergy Intermediate Rash 05/13/19 Yes Physical Exam Physical Exam Constitutional: Well developed, well nourished, no acute distress, non-toxic appearance. [] HENT: Normocephalic, atraumatic, bilateral external ears normal, oropharynx moist, no oral exudates, nose normal. [] Eyes: PERRLA, EOMI, conjunctiva normal, no discharge. [] Neck: Normal range of motion, no tenderness, supple, no stridor. [] Cardiovascular: Regular rate and rhythm[] Lungs & Thorax: Bilateral breath sounds clear to auscultation [] Abdomen: Bowel sounds normal, soft, with mild left upper abdominal tenderness. [] Skin: Warm, dry, no erythema, no rash. [] Extremities: No tenderness, no cyanosis, no clubbing, ROM intact, no edema. [] Neurologic: Alert and oriented X 3, no focal deficits noted. [] Current Patient Data Vital Signs Vital Signs Date Time Temp Pulse Resp B/P (MAP) Pulse Ox O2 Delivery O2 Flow Rate FiO2 10/30/19 21:00 102 16 100/55 (70) 96 Room Air 10/30/19 18:00 98.1 98.1 Lab Values Laboratory Tests Test 10/30/19 18:06 10/30/19 18:15 10/30/19 18:20 10/30/19 18:35 Urine Collection Type Unknown Urine Color Yellow Urine Clarity Cloudy Urine pH 5.0 Urine Specific [place] >=1.030 Urine Protein Negative mg/dL (NEG-TRACE) Urine Glucose (UA) >=1000 mg/dL (NEG) Urine Ketones (Stick) Negative mg/dL (NEG) Urine Blood Large (NEG) Urine Nitrite Negative (NEG) Urine Bilirubin Negative (NEG) Urine Urobilinogen Dipstick 0.2 mg/dL (0.2 mg/dL) Urine Leukocyte Esterase Negative (NEG) Urine RBC >40 /HPF (0-2) Urine WBC Occ /HPF (0-4) Urine Squamous Epithelial Cells Few /LPF Urine Bacteria 0 /HPF (0-FEW) Glucose (Fingerstick) 546 mg/dL (70-99) *H POC Urine HCG, Qualitative Hcg negative (Negative) White Blood Count 9.1 x10^3/uL (4.0-11.0) Red Blood Count 4.51 x10^6/uL (3.50-5.40) Hemoglobin 12.9 g/dL (12.0-15.5) Hematocrit 38.1 % (36.0-47.0) Mean Corpuscular Volume 85 fL (79-100) Mean Corpuscular Hemoglobin 29 pg (25-35) Mean Corpuscular Hemoglobin Concent 34 g/dL (31-37) Red Cell Distribution Width 16.7 % (11.5-14.5) H Platelet Count 219 x10^3/uL (140-400) Neutrophils (%) (Auto) 65 % (31-73) Lymphocytes (%) (Auto) 27 % (24-48) Monocytes (%) (Auto) 7 % (0-9) Eosinophils (%) (Auto) 1 % (0-3) Basophils (%) (Auto) 1 % (0-3) Neutrophils # (Auto) 5.9 x10^3/uL (1.8-7.7) Lymphocytes # (Auto) 2.4 x10^3/uL (1.0-4.8) Monocytes # (Auto) 0.6 x10^3/uL (0.0-1.1) Eosinophils # (Auto) 0.1 x10^3/uL (0.0-0.7) Basophils # (Auto) 0.1 x10^3/uL (0.0-0.2) Sodium Level 134 mmol/L (136-145) L Potassium Level 3.9 mmol/L (3.5-5.1) Chloride Level 99 mmol/L (98-107) Carbon Dioxide Level 24 mmol/L (21-32) Anion Gap 11 (6-14) Blood Urea Nitrogen 12 mg/dL (7-20) Creatinine 0.9 mg/dL (0.6-1.0) Estimated GFR (Cockcroft-Gault) 69.7 BUN/Creatinine Ratio 13 (6-20) Glucose Level 515 mg/dL (70-99) *H Calcium Level 9.0 mg/dL (8.5-10.1) Total Bilirubin 0.4 mg/dL (0.2-1.0) Aspartate Amino Transferase (AST) 65 U/L (15-37) H Alanine Aminotransferase (ALT) 123 U/L (14-59) H Alkaline Phosphatase 105 U/L (46-116) Total Protein 7.4 g/dL (6.4-8.2) Albumin 3.7 g/dL (3.4-5.0) Albumin/Globulin Ratio 1.0 (1.0-1.7) Acetone Level Neg (NEG) Test 10/30/19 19:49 10/30/19 20:54 Glucose (Fingerstick) 461 mg/dL (70-99) H 394 mg/dL (70-99) H Laboratory Tests 10/30/19 18:35 Laboratory Tests 10/30/19 18:35 EKG EKG [] Radiology/Procedures Radiology/Procedures [] Course & Med Decision Making Course & Med Decision Making Pertinent Labs and Imaging studies reviewed. (See chart for details) [] Dragon Disclaimer Dragon Disclaimer This electronic medical record was generated, in whole or in part, using a voice recognition dictation system. Departure Departure Impression: Primary Impression: Uncontrolled diabetes mellitus Disposition: ADMITTED INPATIENT Admitting Physician: LUANNE Condition: IMPROVED Referrals: JANET FULLER (PCP) Problem Qualifiers Primary Impression: Uncontrolled diabetes mellitus Diabetes mellitus type: type 2 Glycemic state: with hyperglycemia Qualified Codes: E11.65 - Type 2 diabetes mellitus with hyperglycemia LLUVIA SAUNDERS Jr. DO Oct 30, 2019 18:41
[2019-10-30 18:44] LABS: BACTERIA,URINE 0 /HPF (0-FEW); RBC,URINE >40 /HPF (0-2); SQUAMOUS EPITHELIAL CELL,UR FEW /LPF; WBC,URINE OCC /HPF (0-4)
[2019-10-30 18:45] LABS: BASO # 0.1 x10^3/uL (0.0-0.2); BASO % 1 % (0-3); EOS # 0.1 x10^3/uL (0.0-0.7); EOS % 1 % (0-3); HEMATOCRIT 38.1 % (36.0-47.0); HEMOGLOBIN 12.9 g/dL (12.0-15.5); LYMPH # 2.4 x10^3/uL (1.0-4.8); LYMPH % 27 % (24-48); MEAN CORPUSCULAR HEMOGLOBIN 29 pg (25-35); MEAN CORPUSCULAR HGB CONC 34 g/dL (31-37); MEAN CORPUSCULAR VOLUME 85 fL (79-100); MONO # 0.6 x10^3/uL (0.0-1.1); MONO % 7 % (0-9); NEUT # 5.9 x10^3/uL (1.8-7.7); NEUT % 65 % (31-73); PLATELET COUNT 219 x10^3/uL (140-400); RED BLOOD COUNT 4.51 x10^6/uL (3.50-5.40); RED CELL DISTRIBUTION WIDTH 16.7 % (11.5-14.5); WHITE BLOOD COUNT 9.1 x10^3/uL (4.0-11.0)
[2019-10-30] MEDS ORDERED: ONDANSETRON PF 4 MG/2 ML VIAL. IVP ONE (18:45)
[2019-10-30 18:58] LABS: ALBUMIN 3.7 g/dL (3.4-5.0); CREATININE 0.9 mg/dL (0.6-1.0); GFR 69.7; POTASSIUM 3.9 mmol/L (3.5-5.1); TOTAL BILIRUBIN 0.4 mg/dL (0.2-1.0); TOTAL PROTEIN 7.4 g/dL (6.4-8.2)
[2019-10-30] MEDS ORDERED: fentaNYL PF VIAL 100 MCG/2 ML VIAL IVP ONE (19:00)
[2019-10-30] MEDS ORDERED: IV NORMAL SALINE 1000ML BAG 1,000 ML IV ONE (20:00)
[2019-10-30] MEDS ORDERED: DEXTROSE 50% 25 GM / 50ML DISP.SYRIN. IV PRN (22:00)
[2019-10-30] MEDS ORDERED: ONDANSETRON PF 4 MG/2 ML VIAL. IV PRN (22:00)
[2019-10-30] MEDS: MORPHINE SULFATE 2 MG/ML VIAL. IV PRN (22:23)
[2019-10-31] VITALS (7 sets, daily range): BP systolic 98–132; BP diastolic 52–78
[2019-10-31] MEDS ORDERED: DESV100T8 PO (00:41)
[2019-10-31] MEDS ORDERED: ALPR2TAB2 PO (00:41)
[2019-10-31] MEDS: IV NORMAL SALINE 1000ML BAG 1,000 ML IV SCH ×3 (00:42→16:43)
[2019-10-31] MEDS: MORPHINE SULFATE 2 MG/ML VIAL. IV PRN ×9 (00:49→22:57)
[2019-10-31 05:27] LABS: CALCIUM 8.7 mg/dL (8.5-10.1); CREATININE 0.7 mg/dL (0.6-1.0); GFR 93.2; POTASSIUM 3.9 mmol/L (3.5-5.1)
[2019-10-31 05:33] LABS: BASO # 0.1 x10^3/uL (0.0-0.2); BASO % 1 % (0-3); EOS # 0.1 x10^3/uL (0.0-0.7); EOS % 2 % (0-3); HEMOGLOBIN 11.9 g/dL (12.0-15.5); LYMPH % 35 % (24-48); MEAN CORPUSCULAR HEMOGLOBIN 28 pg (25-35); MEAN CORPUSCULAR HGB CONC 34 g/dL (31-37); MEAN CORPUSCULAR VOLUME 83 fL (79-100); MONO # 0.6 x10^3/uL (0.0-1.1); MONO % 7 % (0-9); NEUT # 4.9 x10^3/uL (1.8-7.7); NEUT % 56 % (31-73); PLATELET COUNT 217 x10^3/uL (140-400); RED CELL DISTRIBUTION WIDTH 17.3 % (11.5-14.5); WHITE BLOOD COUNT 8.7 x10^3/uL (4.0-11.0)
[2019-10-31] MEDS: INSULIN LISPRO 300 UNITS/3 ML VIAL. SQ SCH ×6 (08:09→16:47)
[2019-10-31] MEDS ORDERED: DOCUSATE SODIUM 100 MG CAPSULE. PO SCH (08:30)
[2019-10-31] MEDS ORDERED: GABAPENTIN 300 MG CAPSULE. PO PRN (08:30)
--- NOTE | 2019-10-31 08:30 | PDOC1 ---
History and Physical Date of Admission Date of Admission DATE: 10/31/19 TIME: 08:25 Identification/Chief Complaint Chief Complaint Hyperglycemia Source Source: Patient History of Present Illness History of Present Illness Ms Parker is a 38 yo F w/ PMHx HTN, GERD, anxiety/depression, DM2, obesity who p/w not feeling well which developed over the past 12-24 hours while taking care of her 6-month-old niece. She has had lack of sleep due to this and has been unable to get her blood glucose below 500. She was just treated here and [facility] for symptomatic hyperglycemia, DKA at [facility]. Was just treated for symptomatic hyperglycemia here and discharged on 10/18/2019. Had some initial right lower chest pain. No shortness of breath, blood in stool, dizziness, syncope, headache, palpitations, recent travel, chills, fever. Her initial blood sugar upon arrival in the emergency department is 515. Last year was recurrently admitted for hypoglycemia, now for hyperglycemia. Labs WNL with the exception of mild elevation in ALT and AST and glucose. Admitted with IV insulin. Past Medical History Cardiovascular: HTN GI: GERD Psych: Anxiety, Depression Endocrine: Diabetes Past Surgical History Past Surgical History: Cholecystectomy, Hysterectomy Family History Family History: Diabetes, Hypertension Social History Smoke: No ALCOHOL: none Drugs: None Current Medications Current Medications Current Medications Sodium Chloride 1,000 ml @ 1,000 mls/hr Q1H IV Last administered on 10/30/19at 18:40; Start 10/30/19 at 18:10; Stop 10/30/19 at 19:09; Status DC Insulin Human Regular (HumuLIN R VIAL) 12 unit 1X ONCE IV Last administered on 10/30/19at 18:44; Start 10/30/19 at 18:30; Stop 10/30/19 at 18:31; Status DC Ondansetron HCl (Zofran) 4 mg STK-MED ONCE .ROUTE ; Start 10/30/19 at 18:38; Stop 10/30/19 at 18:38; Status DC Ondansetron HCl (Zofran) 4 mg 1X ONCE IVP Last administered on 10/30/19at 18:43; Start 10/30/19 at 18:45; Stop 10/30/19 at 18:46; Status DC Fentanyl Citrate (Fentanyl 2ml Vial) 25 mcg 1X ONCE IVP Last administered on 10/30/19at 19:12; Start 10/30/19 at 19:00; Stop 10/30/19 at 19:03; Status DC Insulin Human Regular (HumuLIN R VIAL) 10 unit 1X ONCE IV Last administered on 10/30/19at 20:06; Start 10/30/19 at 20:00; Stop 10/30/19 at 20:01; Status DC Sodium Chloride 1,000 ml @ 1,000 mls/hr 1X ONCE IV Last administered on 10/30/19at 20:03; Start 10/30/19 at 20:00; Stop 10/30/19 at 20:59; Status DC Ondansetron HCl (Zofran) 4 mg PRN Q8HRS PRN IV NAUSEA/VOMITING 1ST CHOICE Last administered on 10/31/19at 07:09; Start 10/30/19 at 22:00; Stop 10/31/19 at 21:59 Morphine Sulfate (Morphine Sulfate) 2 mg PRN Q2HR PRN IV SEVERE PAIN 7-10 Last administered on 10/31/19at 07:10; Start 10/30/19 at 22:00; Stop 10/31/19 at 21:59 Sodium Chloride 1,000 ml @ 125 mls/hr Q8H IV Last administered on 10/31/19at 05:48; Start 10/30/19 at 22:00; Stop 10/31/19 at 21:59 Insulin Human Lispro (HumaLOG) 0-7 UNITS TIDWMEALS SQ Last administered on 10/31/19at 08:09; Start 10/31/19 at 08:00 Dextrose (Dextrose 50%-Water Syringe) 12.5 gm PRN Q15MIN PRN IV SEE COMMENTS; Start 10/30/19 at 22:00 Active Scripts Active Lantus Solostar (Insulin Glargine,Hum.rec.anlog) 100 Unit/1 Ml Insuln.pen 60 Unit SQ BID 30 Days Humalog (Insulin Lispro) 100 Unit/1 Ml Vial 38 Unit SQ TIDWMEALS 30 Days Reported Xanax (Alprazolam) 2 Mg Tablet 2 Mg PO PRN TID PRN Desvenlafaxine Er (Desvenlafaxine) 100 Mg Tab.er.24h 1 Tab PO DAILY 30 Days Colace (Docusate Sodium) 100 Mg Capsule 1 Cap PO PRN Q12HRS MDD 200 Gabapentin (Gabapentin) 300 Mg Capsule 300 Mg PO PRN QHS PRN Protonix (Pantoprazole Sodium) 20 Mg Tablet.dr 40 Mg PO DAILY Allergies Allergies: Coded Allergies: levofloxacin (Verified Allergy, Intermediate, Rash, 05/13/19) shellfish derived (Verified Allergy, Intermediate, RASH/ITCH, 09/15/19) vancomycin (Verified Allergy, Intermediate, Rash, 05/13/19) ROS General: No: Chills, Night Sweats, Fatigue, Malaise, Appetite, Other PSYCHOLOGICAL ROS: No: Anxiety, Behavioral Disorder, Concentration difficultie, Decreased libido, Depression, Disorientation, Hallucinations, Hostility, Irritablity, Memory difficulties, Mood Swings, Obsessive thoughts, Physical abuse, Sexual abuse, Sleep disturbances, Suicidal ideation, Other Eyes: No Blurry vision, No Decreased vision, No Double vision, No Dry eyes, No Excessive tearing, No Eye Pain, No Itchy Eyes, No Loss of vision, No Photophobia, No Scotomata, No Uses contacts, No Uses glasses, No Other HEENT: No: Heacaches, Visual Changes, Hearing change, Nasal congestion, Nasal discharge, Oral lesions, Sinus pain, Sore Throat, Epistaxis, Sneezing, Snoring, Tinnitus, Vertigo, Vocal changes, Other ALLERGY AND IMMUNOLOGY: No: Hives, Insect Bite Sensitivity, Itchy/Watery Eyes, Nasal Congestion, Post Nasal Drip, Seasonal Allergies, Other Hematological and Lymphatic: No: Bleeding Problems, Blood Clots, Blood Transfusions, Brusing, Night Sweats, Pallor, Swollen Lymph Nodes, Other ENDOCRINE: No: Breast Changes, Galactorrhea, Hair Pattern Changes, Hot Flashes, Malaise/lethargy, Mood Swings, Palpitations, Polydipsia/polyuria, Skin Changes, Temperature Intolerance, Unexpected Weight Changes, Other Breast: No New/Changing Breast Lumps, No Nipple changes, No Nipple discharge, No Other Respiratory: No: Cough, Hemoptysis, Orthopnea, Pleuritic Pain, Shortness of breath, SOB with excertion, Sputum Changes, Stridor, Tachypnea, Wheezing, Other Cardiovascular: No Chest Pain, No Palpitations, No Orthopnea, No Paroxysmal Noc. Dyspnea, No Edema, No Lt Headedness, No Other Gastrointestinal: Yes Nausea; No Vomiting, No Abdominal Pain, No Diarrhea, No Constipation, No Melena, No Hematochezia, No Other Genitourinary: No Dysuria, No Frequency, No Incontinence, No Hematuria, No Retention, No Discharge, No Urgency, No Pain, No Flank Pain, No Other, No , No , No , No , No , No , No Musculoskeletal: No Gait Disturbance, No Joint Pain, No Joint Stiffness, No Joint Swelling, No Muscle Pain, No Muscular Weakness, No Pain In:, No Swelling In:, No Other Neurological: No Behavorial Changes, No Bowel/Bladder ControlChng, No Confusion, No Dizziness, No Gait Disturbance, No Headaches, No Impaired Coord/balance, No Memory Loss, No Numbness/Tingling, No Seizures, No Speech Problems, No Tremors, No Visual Changes, No Weakness, No Other Skin: No Dry Skin, No Eczema, No Hair Changes, No Lumps, No Mole Changes, No Mottling, No Nail Changes, No Pruritus, No Rash, No Skin Lesion Changes, No Other, No Acne Physical Exam General: Alert, Oriented X3, Cooperative, No acute distress HEENT: Atraumatic, PERRLA, EOMI, Mucous membr. moist/pink Lungs: Clear to auscultation, Normal air movement Heart: S1S2, RRR, no thrills, no rubs, no gallops, no murmurs Abdomen: Normal bowel sounds, Soft, No tenderness, No hepatosplenomegaly, No masses Rectal Exam: not examined Extremities: No clubbing, No cyanosis, No edema, Normal pulses, No tenderness/swelling Skin: No rashes, No breakdown, No significant lesion Neuro: Normal gait, Normal speech, Strength at 5/5 X4 ext, Normal tone, Sensation intact, Cranial nerves 3-12 NL, Reflexes 2+ Psych/Mental Status: Mental status NL, Mood NL Vitals Vitals Vital Signs Date Time Temp Pulse Resp B/P (MAP) Pulse Ox O2 Delivery O2 Flow Rate FiO2 10/31/19 08:06 Room Air 10/31/19 07:10 18 92 10/31/19 03:00 98.0 83 105/67 (80) 98.0 Labs Labs Laboratory Tests Test 10/30/19 18:06 10/30/19 18:15 10/30/19 18:20 10/30/19 18:35 Urine Collection Type Unknown Urine Color Yellow Urine Clarity Cloudy Urine pH 5.0 Urine Specific [place] >=1.030 Urine Protein Negative mg/dL (NEG-TRACE) Urine Glucose (UA) >=1000 mg/dL (NEG) Urine Ketones (Stick) Negative mg/dL (NEG) Urine Blood Large (NEG) Urine Nitrite Negative (NEG) Urine Bilirubin Negative (NEG) Urine Urobilinogen Dipstick 0.2 mg/dL (0.2 mg/dL) Urine Leukocyte Esterase Negative (NEG) Urine RBC >40 /HPF (0-2) Urine WBC Occ /HPF (0-4) Urine Squamous Epithelial Cells Few /LPF Urine Bacteria 0 /HPF (0-FEW) Glucose (Fingerstick) 546 mg/dL (70-99) Bedside Urine HCG, Qualitative Hcg negative (Negative) White Blood Count 9.1 x10^3/uL (4.0-11.0) Red Blood Count 4.51 x10^6/uL (3.50-5.40) Hemoglobin 12.9 g/dL (12.0-15.5) Hematocrit 38.1 % (36.0-47.0) Mean Corpuscular Volume 85 fL (79-100) Mean Corpuscular Hemoglobin 29 pg (25-35) Mean Corpuscular Hemoglobin Concent 34 g/dL (31-37) Red Cell Distribution Width 16.7 % (11.5-14.5) Platelet Count 219 x10^3/uL (140-400) Neutrophils (%) (Auto) 65 % (31-73) Lymphocytes (%) (Auto) 27 % (24-48) Monocytes (%) (Auto) 7 % (0-9) Eosinophils (%) (Auto) 1 % (0-3) Basophils (%) (Auto) 1 % (0-3) Neutrophils # (Auto) 5.9 x10^3/uL (1.8-7.7) Lymphocytes # (Auto) 2.4 x10^3/uL (1.0-4.8) Monocytes # (Auto) 0.6 x10^3/uL (0.0-1.1) Eosinophils # (Auto) 0.1 x10^3/uL (0.0-0.7) Basophils # (Auto) 0.1 x10^3/uL (0.0-0.2) Sodium Level 134 mmol/L (136-145) Potassium Level 3.9 mmol/L (3.5-5.1) Chloride Level 99 mmol/L (98-107) Carbon Dioxide Level 24 mmol/L (21-32) Anion Gap 11 (6-14) Blood Urea Nitrogen 12 mg/dL (7-20) Creatinine 0.9 mg/dL (0.6-1.0) Estimated GFR (Cockcroft-Gault) 69.7 BUN/Creatinine Ratio 13 (6-20) Glucose Level 515 mg/dL (70-99) Calcium Level 9.0 mg/dL (8.5-10.1) Total Bilirubin 0.4 mg/dL (0.2-1.0) Aspartate Amino Transf (AST/SGOT) 65 U/L (15-37) Alanine Aminotransferase (ALT/SGPT) 123 U/L (14-59) Alkaline Phosphatase 105 U/L (46-116) Total Protein 7.4 g/dL (6.4-8.2) Albumin 3.7 g/dL (3.4-5.0) Albumin/Globulin Ratio 1.0 (1.0-1.7) Acetone Level Neg (NEG) Test 10/30/19 19:49 10/30/19 20:54 10/30/19 23:25 10/31/19 03:45 Glucose (Fingerstick) 461 mg/dL (70-99) 394 mg/dL (70-99) 295 mg/dL (70-99) White Blood Count 8.7 x10^3/uL (4.0-11.0) Red Blood Count 4.20 x10^6/uL (3.50-5.40) Hemoglobin 11.9 g/dL (12.0-15.5) Hematocrit 35.0 % (36.0-47.0) Mean Corpuscular Volume 83 fL (79-100) Mean Corpuscular Hemoglobin 28 pg (25-35) Mean Corpuscular Hemoglobin Concent 34 g/dL (31-37) Red Cell Distribution Width 17.3 % (11.5-14.5) Platelet Count 217 x10^3/uL (140-400) Neutrophils (%) (Auto) 56 % (31-73) Lymphocytes (%) (Auto) 35 % (24-48) Monocytes (%) (Auto) 7 % (0-9) Eosinophils (%) (Auto) 2 % (0-3) Basophils (%) (Auto) 1 % (0-3) Neutrophils # (Auto) 4.9 x10^3/uL (1.8-7.7) Lymphocytes # (Auto) 3.0 x10^3/uL (1.0-4.8) Monocytes # (Auto) 0.6 x10^3/uL (0.0-1.1) Eosinophils # (Auto) 0.1 x10^3/uL (0.0-0.7) Basophils # (Auto) 0.1 x10^3/uL (0.0-0.2) Sodium Level 141 mmol/L (136-145) Potassium Level 3.9 mmol/L (3.5-5.1) Chloride Level 106 mmol/L (98-107) Carbon Dioxide Level 26 mmol/L (21-32) Anion Gap 9 (6-14) Blood Urea Nitrogen 7 mg/dL (7-20) Creatinine 0.7 mg/dL (0.6-1.0) Estimated GFR (Cockcroft-Gault) 93.2 Glucose Level 284 mg/dL (70-99) Calcium Level 8.7 mg/dL (8.5-10.1) Test 10/31/19 07:56 Glucose (Fingerstick) 244 mg/dL (70-99) Laboratory Tests Test 10/30/19 18:06 10/30/19 18:15 10/30/19 18:20 10/30/19 18:35 Urine Collection Type Unknown Urine Color Yellow Urine Clarity Cloudy Urine pH 5.0 Urine Specific [place] >=1.030 Urine Protein Negative mg/dL (NEG-TRACE) Urine Glucose (UA) >=1000 mg/dL (NEG) Urine Ketones (Stick) Negative mg/dL (NEG) Urine Blood Large (NEG) Urine Nitrite Negative (NEG) Urine Bilirubin Negative (NEG) Urine Urobilinogen Dipstick 0.2 mg/dL (0.2 mg/dL) Urine Leukocyte Esterase Negative (NEG) Urine RBC >40 /HPF (0-2) Urine WBC Occ /HPF (0-4) Urine Squamous Epithelial Cells Few /LPF Urine Bacteria 0 /HPF (0-FEW) Glucose (Fingerstick) 546 mg/dL (70-99) Bedside Urine HCG, Qualitative Hcg negative (Negative) White Blood Count 9.1 x10^3/uL (4.0-11.0) Red Blood Count 4.51 x10^6/uL (3.50-5.40) Hemoglobin 12.9 g/dL (12.0-15.5) Hematocrit 38.1 % (36.0-47.0) Mean Corpuscular Volume 85 fL (79-100) Mean Corpuscular Hemoglobin 29 pg (25-35) Mean Corpuscular Hemoglobin Concent 34 g/dL (31-37) Red Cell Distribution Width 16.7 % (11.5-14.5) Platelet Count 219 x10^3/uL (140-400) Neutrophils (%) (Auto) 65 % (31-73) Lymphocytes (%) (Auto) 27 % (24-48) Monocytes (%) (Auto) 7 % (0-9) Eosinophils (%) (Auto) 1 % (0-3) Basophils (%) (Auto) 1 % (0-3) Neutrophils # (Auto) 5.9 x10^3/uL (1.8-7.7) Lymphocytes # (Auto) 2.4 x10^3/uL (1.0-4.8) Monocytes # (Auto) 0.6 x10^3/uL (0.0-1.1) Eosinophils # (Auto) 0.1 x10^3/uL (0.0-0.7) Basophils # (Auto) 0.1 x10^3/uL (0.0-0.2) Sodium Level 134 mmol/L (136-145) Potassium Level 3.9 mmol/L (3.5-5.1) Chloride Level 99 mmol/L (98-107) Carbon Dioxide Level 24 mmol/L (21-32) Anion Gap 11 (6-14) Blood Urea Nitrogen 12 mg/dL (7-20) Creatinine 0.9 mg/dL (0.6-1.0) Estimated GFR (Cockcroft-Gault) 69.7 BUN/Creatinine Ratio 13 (6-20) Glucose Level 515 mg/dL (70-99) Calcium Level 9.0 mg/dL (8.5-10.1) Total Bilirubin 0.4 mg/dL (0.2-1.0) Aspartate Amino Transf (AST/SGOT) 65 U/L (15-37) Alanine Aminotransferase (ALT/SGPT) 123 U/L (14-59) Alkaline Phosphatase 105 U/L (46-116) Total Protein 7.4 g/dL (6.4-8.2) Albumin 3.7 g/dL (3.4-5.0) Albumin/Globulin Ratio 1.0 (1.0-1.7) Acetone Level Neg (NEG) Test 10/30/19 19:49 10/30/19 20:54 10/30/19 23:25 10/31/19 03:45 Glucose (Fingerstick) 461 mg/dL (70-99) 394 mg/dL (70-99) 295 mg/dL (70-99) White Blood Count 8.7 x10^3/uL (4.0-11.0) Red Blood Count 4.20 x10^6/uL (3.50-5.40) Hemoglobin 11.9 g/dL (12.0-15.5) Hematocrit 35.0 % (36.0-47.0) Mean Corpuscular Volume 83 fL (79-100) Mean Corpuscular Hemoglobin 28 pg (25-35) Mean Corpuscular Hemoglobin Concent 34 g/dL (31-37) Red Cell Distribution Width 17.3 % (11.5-14.5) Platelet Count 217 x10^3/uL (140-400) Neutrophils (%) (Auto) 56 % (31-73) Lymphocytes (%) (Auto) 35 % (24-48) Monocytes (%) (Auto) 7 % (0-9) Eosinophils (%) (Auto) 2 % (0-3) Basophils (%) (Auto) 1 % (0-3) Neutrophils # (Auto) 4.9 x10^3/uL (1.8-7.7) Lymphocytes # (Auto) 3.0 x10^3/uL (1.0-4.8) Monocytes # (Auto) 0.6 x10^3/uL (0.0-1.1) Eosinophils # (Auto) 0.1 x10^3/uL (0.0-0.7) Basophils # (Auto) 0.1 x10^3/uL (0.0-0.2) Sodium Level 141 mmol/L (136-145) Potassium Level 3.9 mmol/L (3.5-5.1) Chloride Level 106 mmol/L (98-107) Carbon Dioxide Level 26 mmol/L (21-32) Anion Gap 9 (6-14) Blood Urea Nitrogen 7 mg/dL (7-20) Creatinine 0.7 mg/dL (0.6-1.0) Estimated GFR (Cockcroft-Gault) 93.2 Glucose Level 284 mg/dL (70-99) Calcium Level 8.7 mg/dL (8.5-10.1) Test 10/31/19 07:56 Glucose (Fingerstick) 244 mg/dL (70-99) VTE Prophylaxis Ordered VTE Prophylaxis Devices: No VTE Pharmacological Prophylaxi: Yes Assessment/Plan Assessment/Plan A/P: Symptomatic hyperglycemia - on 120u glargine and 50u TID lispro at home Abdominal pain - with benign findings on US previously. Pain resolved after overnight fluids. 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
[2019-10-31] MEDS ORDERED: ALPRAZolam 1 MG TABLET PO PRN (09:00)
[2019-10-31] MEDS: DESVENLAFAXINE 25 MG TAB.ER.24H PO SCH (09:21)
[2019-10-31] MEDS: INSULIN GLARGINE SYRINGE. SQ SCH ×2 (09:31→20:36)
[2019-10-31] MEDS: PANTOPRAZOLE 40 MG TABLET.DR. PO SCH (11:30)
[2019-10-31] MEDS ORDERED: ONDANSETRON PF 4 MG/2 ML VIAL. IV PRN (13:30)
[2019-10-31] MEDS ORDERED: DOCUSATE SODIUM 100 MG CAPSULE. PO PRN (13:45)
[2019-11-01 03:00] VITALS: BP 98/61
[2019-11-01] MEDS: MORPHINE SULFATE 2 MG/ML VIAL. IV PRN ×5 (04:04→12:50)
[2019-11-01 07:00] VITALS: BP 107/65
--- NOTE | 2019-11-01 07:40 | PDOC ---
PROGRESS NOTES Chief Complaint Chief Complaint A/P: Symptomatic hyperglycemia - on 120u glargine and 50u TID lispro at home Abdominal pain - with benign findings on US previously. Pain resolved after overnight fluids. 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 She has had lack of sleep due to this and has been unable to get her blood glucose below 500. She was just treated here and [facility] for symptomatic hyperglycemia, DKA at [facility]. Was just treated for symptomatic hyperglycemia here and discharged on 10/18/2019. Had some initial right lower chest pain. No shortness of breath, blood in stool, dizziness, syncope, headache, palpitations, recent travel, chills, fever. Her initial blood sugar upon arrival in the emergency department is 515. Last year was recurrently admitted for hypoglycemia, now for hyperglycemia. Labs WNL with the exception of mild elevation in ALT and AST and glucose. Admitted with IV insulin. Glucose in 100s today. Has a little bit of abdominal pain currently. Feels ready to discharge home. Vitals Vitals Vital Signs Date Time Temp Pulse Resp B/P (MAP) Pulse Ox O2 Delivery O2 Flow Rate FiO2 11/01/19 07:16 18 95 Room Air 11/01/19 03:00 97.6 66 98/61 (73) 97.6 Physical Exam General: Alert, Oriented X3, Cooperative, No acute distress Lungs: Clear Abdomen: Normal bowel sounds, Soft, No tenderness, No hepatosplenomegaly, No masses Extremities: No clubbing, No cyanosis, No edema, Normal pulses, No tenderness/swelling Skin: No rashes, No breakdown, No significant lesion Labs LABS Laboratory Tests Test 10/31/19 07:56 10/31/19 11:18 10/31/19 16:39 10/31/19 20:30 Glucose (Fingerstick) 244 mg/dL (70-99) 252 mg/dL (70-99) 62 mg/dL (70-99) 256 mg/dL (70-99) Test 11/01/19 07:29 Glucose (Fingerstick) 182 mg/dL (70-99) Comment Review of Relevant I have reviewed the following items sharda (where applicable) has been applied. Labs Laboratory Tests Test 10/30/19 18:06 10/30/19 18:15 10/30/19 18:20 10/30/19 18:35 Urine Collection Type Unknown Urine Color Yellow Urine Clarity Cloudy Urine pH 5.0 Urine Specific [place] >=1.030 Urine Protein Negative mg/dL (NEG-TRACE) Urine Glucose (UA) >=1000 mg/dL (NEG) Urine Ketones (Stick) Negative mg/dL (NEG) Urine Blood Large (NEG) Urine Nitrite Negative (NEG) Urine Bilirubin Negative (NEG) Urine Urobilinogen Dipstick 0.2 mg/dL (0.2 mg/dL) Urine Leukocyte Esterase Negative (NEG) Urine RBC >40 /HPF (0-2) Urine WBC Occ /HPF (0-4) Urine Squamous Epithelial Cells Few /LPF Urine Bacteria 0 /HPF (0-FEW) Glucose (Fingerstick) 546 mg/dL (70-99) Bedside Urine HCG, Qualitative Hcg negative (Negative) White Blood Count 9.1 x10^3/uL (4.0-11.0) Red Blood Count 4.51 x10^6/uL (3.50-5.40) Hemoglobin 12.9 g/dL (12.0-15.5) Hematocrit 38.1 % (36.0-47.0) Mean Corpuscular Volume 85 fL (79-100) Mean Corpuscular Hemoglobin 29 pg (25-35) Mean Corpuscular Hemoglobin Concent 34 g/dL (31-37) Red Cell Distribution Width 16.7 % (11.5-14.5) Platelet Count 219 x10^3/uL (140-400) Neutrophils (%) (Auto) 65 % (31-73) Lymphocytes (%) (Auto) 27 % (24-48) Monocytes (%) (Auto) 7 % (0-9) Eosinophils (%) (Auto) 1 % (0-3) Basophils (%) (Auto) 1 % (0-3) Neutrophils # (Auto) 5.9 x10^3/uL (1.8-7.7) Lymphocytes # (Auto) 2.4 x10^3/uL (1.0-4.8) Monocytes # (Auto) 0.6 x10^3/uL (0.0-1.1) Eosinophils # (Auto) 0.1 x10^3/uL (0.0-0.7) Basophils # (Auto) 0.1 x10^3/uL (0.0-0.2) Sodium Level 134 mmol/L (136-145) Potassium Level 3.9 mmol/L (3.5-5.1) Chloride Level 99 mmol/L (98-107) Carbon Dioxide Level 24 mmol/L (21-32) Anion Gap 11 (6-14) Blood Urea Nitrogen 12 mg/dL (7-20) Creatinine 0.9 mg/dL (0.6-1.0) Estimated GFR (Cockcroft-Gault) 69.7 BUN/Creatinine Ratio 13 (6-20) Glucose Level 515 mg/dL (70-99) Calcium Level 9.0 mg/dL (8.5-10.1) Total Bilirubin 0.4 mg/dL (0.2-1.0) Aspartate Amino Transf (AST/SGOT) 65 U/L (15-37) Alanine Aminotransferase (ALT/SGPT) 123 U/L (14-59) Alkaline Phosphatase 105 U/L (46-116) Total Protein 7.4 g/dL (6.4-8.2) Albumin 3.7 g/dL (3.4-5.0) Albumin/Globulin Ratio 1.0 (1.0-1.7) Acetone Level Neg (NEG) Test 10/30/19 19:49 10/30/19 20:54 10/30/19 23:25 10/31/19 03:45 Glucose (Fingerstick) 461 mg/dL (70-99) 394 mg/dL (70-99) 295 mg/dL (70-99) White Blood Count 8.7 x10^3/uL (4.0-11.0) Red Blood Count 4.20 x10^6/uL (3.50-5.40) Hemoglobin 11.9 g/dL (12.0-15.5) Hematocrit 35.0 % (36.0-47.0) Mean Corpuscular Volume 83 fL (79-100) Mean Corpuscular Hemoglobin 28 pg (25-35) Mean Corpuscular Hemoglobin Concent 34 g/dL (31-37) Red Cell Distribution Width 17.3 % (11.5-14.5) Platelet Count 217 x10^3/uL (140-400) Neutrophils (%) (Auto) 56 % (31-73) Lymphocytes (%) (Auto) 35 % (24-48) Monocytes (%) (Auto) 7 % (0-9) Eosinophils (%) (Auto) 2 % (0-3) Basophils (%) (Auto) 1 % (0-3) Neutrophils # (Auto) 4.9 x10^3/uL (1.8-7.7) Lymphocytes # (Auto) 3.0 x10^3/uL (1.0-4.8) Monocytes # (Auto) 0.6 x10^3/uL (0.0-1.1) Eosinophils # (Auto) 0.1 x10^3/uL (0.0-0.7) Basophils # (Auto) 0.1 x10^3/uL (0.0-0.2) Sodium Level 141 mmol/L (136-145) Potassium Level 3.9 mmol/L (3.5-5.1) Chloride Level 106 mmol/L (98-107) Carbon Dioxide Level 26 mmol/L (21-32) Anion Gap 9 (6-14) Blood Urea Nitrogen 7 mg/dL (7-20) Creatinine 0.7 mg/dL (0.6-1.0) Estimated GFR (Cockcroft-Gault) 93.2 Glucose Level 284 mg/dL (70-99) Calcium Level 8.7 mg/dL (8.5-10.1) Test 10/31/19 07:56 10/31/19 11:18 10/31/19 16:39 10/31/19 20:30 Glucose (Fingerstick) 244 mg/dL (70-99) 252 mg/dL (70-99) 62 mg/dL (70-99) 256 mg/dL (70-99) Test 11/01/19 07:29 Glucose (Fingerstick) 182 mg/dL (70-99) Laboratory Tests Test 10/31/19 07:56 10/31/19 11:18 10/31/19 16:39 10/31/19 20:30 Glucose (Fingerstick) 244 mg/dL (70-99) 252 mg/dL (70-99) 62 mg/dL (70-99) 256 mg/dL (70-99) Test 11/01/19 07:29 Glucose (Fingerstick) 182 mg/dL (70-99) Medications Current Medications Sodium Chloride 1,000 ml @ 1,000 mls/hr Q1H IV Last administered on 10/30/19 18:40; Start 10/30/19 at 18:10; Stop 10/30/19 at 19:09; Status DC Insulin Human Regular (HumuLIN R VIAL) 12 unit 1X ONCE IV Last administered on 10/30/19at 18:44; Start 10/30/19 at 18:30; Stop 10/30/19 at 18:31; Status DC Ondansetron HCl (Zofran) 4 mg STK-MED ONCE .ROUTE ; Start 10/30/19 at 18:38; Stop 10/30/19 at 18:38; Status DC Ondansetron HCl (Zofran) 4 mg 1X ONCE IVP Last administered on 10/30/19at 18:43; Start 10/30/19 at 18:45; Stop 10/30/19 at 18:46; Status DC Fentanyl Citrate (Fentanyl 2ml Vial) 25 mcg 1X ONCE IVP Last administered on 10/30/19at 19:12; Start 10/30/19 at 19:00; Stop 10/30/19 at 19:03; Status DC Insulin Human Regular (HumuLIN R VIAL) 10 unit 1X ONCE IV Last administered on 10/30/19at 20:06; Start 10/30/19 at 20:00; Stop 10/30/19 at 20:01; Status DC Sodium Chloride 1,000 ml @ 1,000 mls/hr 1X ONCE IV Last administered on 10/30/19at 20:03; Start 10/30/19 at 20:00; Stop 10/30/19 at 20:59; Status DC Ondansetron HCl (Zofran) 4 mg PRN Q8HRS PRN IV NAUSEA/VOMITING 1ST CHOICE Last administered on 10/31/19at 07:09; Start 10/30/19 at 22:00; Stop 10/31/19 at 13:50; Status DC Morphine Sulfate (Morphine Sulfate) 2 mg PRN Q2HR PRN IV SEVERE PAIN 7-10 Last administered on 10/31/19at 19:03; Start 10/30/19 at 22:00; Stop 10/31/19 at 21:59; Status DC Sodium Chloride 1,000 ml @ 125 mls/hr Q8H IV Last administered on 10/31/19at 16:43; Start 10/30/19 at 22:00; Stop 10/31/19 at 21:59; Status DC Insulin Human Lispro (HumaLOG) 0-7 UNITS TIDWMEALS SQ Last administered on at 11:58; Start 10/31/19 at 08:00 Dextrose (Dextrose 50%-Water Syringe) 12.5 gm PRN Q15MIN PRN IV SEE COMMENTS; Start 10/30/19 at 22:00 Docusate Sodium (Colace) 100 mg PRN Q12HRS PO ; Start 10/31/19 at 08:30; Stop 10/31/19 at 13:44; Status DC Gabapentin (Neurontin) 300 mg PRN QHS PRN PO NEUROGENIC PAIN; Start 10/31/19 at 08:30 Insulin Human Lispro (HumaLOG) 38 units TIDWMEALS SQ Last administered on 10/31/19at 11:59; Start 10/31/19 at 09:00 Insulin Glargine (Lantus Syringe) 60 unit BID SQ Last administered on 10/31/19at 20:36; Start 10/31/19 at 09:00 Pantoprazole Sodium (Protonix) 40 mg DAILYAC PO Last administered on 10/31/19at 11:30; Start 10/31/19 at 11:30 Alprazolam (Xanax) 1 mg PRN TID PRN PO ANXIETY / AGITATION; Start 10/31/19 at 09:00 Desvenlafaxine Succinate (Pristiq Er) 100 mg DAILY PO Last administered on 10/31/19at 09:21; Start 10/31/19 at 09:00 Docusate Sodium (Colace) 100 mg PRN Q12HRS PRN PO CONSTIPATION; Start 10/31/19 at 13:45 Ondansetron HCl (Zofran) 4 mg PRN Q6HRS PRN IV NAUSEA/VOMITING 1ST CHOICE; Start 10/31/19 at 13:30 Morphine Sulfate (Morphine Sulfate) 2 mg PRN Q2HR PRN IV SEVERE PAIN 7-10 Last administered on 11/01/19at 06:31; Start 10/31/19 at 23:00 Active Scripts Active Lantus Solostar (Insulin Glargine,Hum.rec.anlog) 100 Unit/1 Ml Insuln.pen 60 Unit SQ BID 30 Days Humalog (Insulin Lispro) 100 Unit/1 Ml Vial 38 Unit SQ TIDWMEALS 30 Days Reported Xanax (Alprazolam) 2 Mg Tablet 2 Mg PO PRN TID PRN Desvenlafaxine Er (Desvenlafaxine) 100 Mg Tab.er.24h 1 Tab PO DAILY 30 Days Colace (Docusate Sodium) 100 Mg Capsule 1 Cap PO PRN Q12HRS MDD 200 Gabapentin (Gabapentin) 300 Mg Capsule 300 Mg PO PRN QHS PRN Protonix (Pantoprazole Sodium) 20 Mg Tablet.dr 40 Mg PO DAILY Vitals/I & O Vital Sign - Last 24 Hours 10/31/19 10/31/19 10/31/19 10/31/19 08:06 08:30 09:32 10:00 Pulse Ox 92 O2 Delivery Room Air Room Air Room Air Room Air 10/31/19 10/31/19 10/31/19 10/31/19 11:00 11:30 11:59 14:15 Temp 98.0 98.0 Pulse 82 Resp 16 B/P (MAP) 132/78 (96) Pulse Ox 96 O2 Delivery Room Air Room Air Room Air Room Air 10/31/19 10/31/19 10/31/19 10/31/19 15:00 16:29 16:43 17:34 Temp 97.7 97.7 Pulse 71 Resp 16 B/P (MAP) 112/65 (81) Pulse Ox 95 95 95 O2 Delivery Room Air Room Air Room Air Room Air 10/31/19 10/31/19 10/31/19 10/31/19 19:03 19:15 19:47 19:57 Temp 97.6 97.6 Pulse 67 Resp 18 18 B/P (MAP) 118/74 (89) Pulse Ox 95 95 O2 Delivery Room Air Room Air Room Air Room Air 10/31/19 10/31/19 10/31/19 11/01/19 22:57 23:00 23:28 03:00 Temp 97.5 97.6 97.5 97.6 Pulse 67 66 Resp 18 18 18 18 B/P (MAP) 98/71 (80) 98/61 (73) Pulse Ox 95 94 95 96 O2 Delivery Room Air Room Air Room Air Room Air 11/01/19 11/01/19 11/01/19 11/01/19 04:04 04:40 06:31 07:16 Resp 18 18 18 18 Pulse Ox 95 95 95 95 O2 Delivery Room Air Room Air Room Air Room Air Intake and Output 10/31/19 10/31/19 11/01/19 15:00 23:00 07:00 Intake Total 240 ml 1360 ml Balance 240 ml 1360 ml JOHN PAUL ROMO MD Nov 01, 2019 07:40
[2019-11-01] MEDS: PANTOPRAZOLE 40 MG TABLET.DR. PO SCH (07:46)
[2019-11-01] MEDS: INSULIN LISPRO 300 UNITS/3 ML VIAL. SQ SCH ×4 (07:56→12:03)
[2019-11-01] MEDS: DESVENLAFAXINE 25 MG TAB.ER.24H PO SCH (08:33)
[2019-11-01] MEDS: INSULIN GLARGINE SYRINGE. SQ SCH (08:37)
[2019-11-01 11:00] VITALS: BP 116/72
[2019-11-01] MEDS ORDERED: HYDR-2761 PO (12:07)
[2019-11-01] MEDS ORDERED: INSU100I13 SQ (12:07)
[2019-11-01] MEDS ORDERED: INSU100V6 SQ (12:07)
--- NOTE | 2019-11-01 12:13 | PDOC3 ---
Discharge Summary Visit Information Date of Admission: Oct 30, 2019 Date of Discharge: Nov 01, 2019 Admitting Diagnosis: Symptomatic hyperglycemia Final Diagnosis Symptomatic hyperglycemia Brief Hospital Course Allergies Allergies Coded Allergies Type Severity Reaction Last Updated Verified levofloxacin Allergy Intermediate Rash 05/13/19 Yes shellfish derived Allergy Intermediate RASH/ITCH 09/15/19 Yes vancomycin Allergy Intermediate Rash 05/13/19 Yes Vital Signs Vital Signs Date Time Temp Pulse Resp B/P (MAP) Pulse Ox O2 Delivery O2 Flow Rate FiO2 11/01/19 11:27 Room Air 11/01/19 11:00 97.5 85 18 116/72 (87) 96 97.5 Lab Results Laboratory Tests Test 10/30/19 18:06 10/30/19 18:15 10/30/19 18:20 10/30/19 18:35 Urine Collection Type Unknown Urine Color Yellow Urine Clarity Cloudy Urine pH 5.0 Urine Specific [place] >=1.030 Urine Protein Negative mg/dL (NEG-TRACE) Urine Glucose (UA) >=1000 mg/dL (NEG) Urine Ketones (Stick) Negative mg/dL (NEG) Urine Blood Large (NEG) Urine Nitrite Negative (NEG) Urine Bilirubin Negative (NEG) Urine Urobilinogen Dipstick 0.2 mg/dL (0.2 mg/dL) Urine Leukocyte Esterase Negative (NEG) Urine RBC >40 /HPF (0-2) Urine WBC Occ /HPF (0-4) Urine Squamous Epithelial Cells Few /LPF Urine Bacteria 0 /HPF (0-FEW) Glucose (Fingerstick) 546 mg/dL (70-99) Bedside Urine HCG, Qualitative Hcg negative (Negative) White Blood Count 9.1 x10^3/uL (4.0-11.0) Red Blood Count 4.51 x10^6/uL (3.50-5.40) Hemoglobin 12.9 g/dL (12.0-15.5) Hematocrit 38.1 % (36.0-47.0) Mean Corpuscular Volume 85 fL (79-100) Mean Corpuscular Hemoglobin 29 pg (25-35) Mean Corpuscular Hemoglobin Concent 34 g/dL (31-37) Red Cell Distribution Width 16.7 % (11.5-14.5) Platelet Count 219 x10^3/uL (140-400) Neutrophils (%) (Auto) 65 % (31-73) Lymphocytes (%) (Auto) 27 % (24-48) Monocytes (%) (Auto) 7 % (0-9) Eosinophils (%) (Auto) 1 % (0-3) Basophils (%) (Auto) 1 % (0-3) Neutrophils # (Auto) 5.9 x10^3/uL (1.8-7.7) Lymphocytes # (Auto) 2.4 x10^3/uL (1.0-4.8) Monocytes # (Auto) 0.6 x10^3/uL (0.0-1.1) Eosinophils # (Auto) 0.1 x10^3/uL (0.0-0.7) Basophils # (Auto) 0.1 x10^3/uL (0.0-0.2) Sodium Level 134 mmol/L (136-145) Potassium Level 3.9 mmol/L (3.5-5.1) Chloride Level 99 mmol/L (98-107) Carbon Dioxide Level 24 mmol/L (21-32) Anion Gap 11 (6-14) Blood Urea Nitrogen 12 mg/dL (7-20) Creatinine 0.9 mg/dL (0.6-1.0) Estimated GFR (Cockcroft-Gault) 69.7 BUN/Creatinine Ratio 13 (6-20) Glucose Level 515 mg/dL (70-99) Calcium Level 9.0 mg/dL (8.5-10.1) Total Bilirubin 0.4 mg/dL (0.2-1.0) Aspartate Amino Transf (AST/SGOT) 65 U/L (15-37) Alanine Aminotransferase (ALT/SGPT) 123 U/L (14-59) Alkaline Phosphatase 105 U/L (46-116) Total Protein 7.4 g/dL (6.4-8.2) Albumin 3.7 g/dL (3.4-5.0) Albumin/Globulin Ratio 1.0 (1.0-1.7) Acetone Level Neg (NEG) Test 10/30/19 19:49 10/30/19 20:54 10/30/19 23:25 10/31/19 03:45 Glucose (Fingerstick) 461 mg/dL (70-99) 394 mg/dL (70-99) 295 mg/dL (70-99) White Blood Count 8.7 x10^3/uL (4.0-11.0) Red Blood Count 4.20 x10^6/uL (3.50-5.40) Hemoglobin 11.9 g/dL (12.0-15.5) Hematocrit 35.0 % (36.0-47.0) Mean Corpuscular Volume 83 fL (79-100) Mean Corpuscular Hemoglobin 28 pg (25-35) Mean Corpuscular Hemoglobin Concent 34 g/dL (31-37) Red Cell Distribution Width 17.3 % (11.5-14.5) Platelet Count 217 x10^3/uL (140-400) Neutrophils (%) (Auto) 56 % (31-73) Lymphocytes (%) (Auto) 35 % (24-48) Monocytes (%) (Auto) 7 % (0-9) Eosinophils (%) (Auto) 2 % (0-3) Basophils (%) (Auto) 1 % (0-3) Neutrophils # (Auto) 4.9 x10^3/uL (1.8-7.7) Lymphocytes # (Auto) 3.0 x10^3/uL (1.0-4.8) Monocytes # (Auto) 0.6 x10^3/uL (0.0-1.1) Eosinophils # (Auto) 0.1 x10^3/uL (0.0-0.7) Basophils # (Auto) 0.1 x10^3/uL (0.0-0.2) Sodium Level 141 mmol/L (136-145) Potassium Level 3.9 mmol/L (3.5-5.1) Chloride Level 106 mmol/L (98-107) Carbon Dioxide Level 26 mmol/L (21-32) Anion Gap 9 (6-14) Blood Urea Nitrogen 7 mg/dL (7-20) Creatinine 0.7 mg/dL (0.6-1.0) Estimated GFR (Cockcroft-Gault) 93.2 Glucose Level 284 mg/dL (70-99) Calcium Level 8.7 mg/dL (8.5-10.1) Test 10/31/19 07:56 10/31/19 11:18 10/31/19 16:39 10/31/19 20:30 Glucose (Fingerstick) 244 mg/dL (70-99) 252 mg/dL (70-99) 62 mg/dL (70-99) 256 mg/dL (70-99) Test 11/01/19 07:29 11/01/19 11:55 Glucose (Fingerstick) 182 mg/dL (70-99) 144 mg/dL (70-99) Laboratory Tests Test 10/31/19 16:39 10/31/19 20:30 11/01/19 07:29 11/01/19 11:55 Glucose (Fingerstick) 62 mg/dL (70-99) 256 mg/dL (70-99) 182 mg/dL (70-99) 144 mg/dL (70-99) Brief Hospital Course Ms Parker is a 38 yo F w/ PMHx HTN, GERD, anxiety/depression, DM2, obesity who p/w not feeling well which developed over the past 12-24 hours while taking care of her 6-month-old niece. She has had lack of sleep due to this and has been unable to get her blood glucose below 500. She was just treated here and [facility] for symptomatic hyperglycemia, DKA at [facility]. Was just treated for symptomatic hyperglycemia here and discharged on 10/18/2019. Had some initial right lower chest pain. No shortness of breath, blood in stool, dizziness, syncope, headache, palpitations, recent travel, chills, fever. Her initial blood sugar upon arrival in the emergency department is 515. Last year was recurrently admitted for hypoglycemia, now for hyperglycemia. Labs WNL with the exception of mild elevation in ALT and AST and glucose. Admitted with IV insulin. Glucose in 100s today. Has a little bit of abdominal pain currently. Feels ready to discharge home. Problem list: Symptomatic hyperglycemia - on 120u glargine and 50u TID lispro at home Abdominal pain - with benign findings on US previously. Pain resolved after overnight fluids. 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 HTN - cont home meds GERD - cont PPI Anxiety/depression - cont home meds DM2 - has endocrinology at [facility] - 65u lantus BID + 38u lispro TID + sliding scale Obesity - counseled on weight loss Transaminitis - PHILLIPS - unless she has cirrhosis this is unlikely to be cause of her hypoglycemia, She may need liver elasticity testing or simply a liver biopsy outpatient Greater than 30 minutes spent on d/c Discharge Information Condition at Discharge: Improved Follow Up: Weeks (1) Disposition/Orders: D/C to Home Scheduled Desvenlafaxine (Desvenlafaxine Er) 100 Mg Tab.er.24h, 1 TAB PO DAILY for depression for 30 Days, #30 Ref 0 (Reported) Entered as Reported by: DAYO BEAN on 10/31/1940 Last Action: Converted on 10/31/19829 by JOHN PAUL ROMO MD Docusate Sodium (Colace) 100 Mg Capsule, 1 CAP PO PRN Q12HRS for constipation MDD 200, #30 (Reported) Entered as Reported by: PRASHANT CRUZ on 05/16/19 1328 Last Action: Continued on 10/31/19827 by JOHN PAUL ROMO MD Insulin Glargine,Hum.rec.anlog (Lantus Solostar) 100 Unit/1 Ml Insuln.pen, 65 UNIT SQ BID for glucose for 30 Days, #15 Ref 3 Prescribed by: JOHN PAUL ROMO MD on 11/01/19 1207 Insulin Lispro (Humalog) 100 Unit/1 Ml Vial, 38 UNIT SQ TIDWMEALS for glucose for 30 Days, #30 Prescribed by: JOHN PAUL ROMO MD on 11/01/19 1207 Pantoprazole Sodium (Protonix) 20 Mg Tablet.dr, 40 MG PO DAILY for acid indigestion, (Reported) Entered as Reported by: JULIA EDGAR on 06/17/18 0015 Last Action: Converted on 10/31/19827 by JOHN PAUL ROMO MD Scheduled PRN Alprazolam (Xanax) 2 Mg Tablet, 2 MG PO PRN TID PRN for ANXIETY / AGITATION, Ref 0 (Reported) Entered as Reported by: DAYO BEAN on [birth year]1940 Last Action: Converted on 10/31/19829 by JOHN PAUL ROMO MD Gabapentin (Gabapentin ) 300 Mg Capsule, 300 MG PO PRN QHS PRN for NEUROGENIC PAIN, (Reported) Entered as Reported by: LOUIS MACIEL on 09/07/18 1001 Last Action: Continued on 10/31/19827 by JOHN PAUL ROMO MD Hydrocodone Bit/Acetaminophen (Hydrocodone-Apap 5-325 ) 1 Tab Tablet, 1 TAB PO PRN Q6HRS PRN for PAIN for 4 Days, #10 Ref 0 Prescribed by: JOHN PAUL ROMO MD on 11/01/19 1209 JOHN PAUL ROMO MD Nov 01, 2019 12:13
[2019-11-02] MEDS ORDERED: ONDA4TAB7 PO (02:14)
== END 2019-11-01 13:43 | disposition home or self-care (01) | DRG 639 ==
LOC: ER 17:48 → 5 SOUTH 22:35
PROVIDERS: ADMIT Internal Medicine; ATTEND Internal Medicine
DX: E11.649 Type 2 diabetes mellitus with hypoglycemia without coma (principal); I10 Essential (primary) hypertension; E66.9 Obesity, unspecified; F32.9 Major depressive disorder, single episode, unspecified; F41.9 Anxiety disorder, unspecified; K21.9 Gastro-esophageal reflux disease without esophagitis; K75.81 Nonalcoholic steatohepatitis (NASH); Z82.49 Family history of ischemic heart disease and other diseases of the circulatory system; Z83.3 Family history of diabetes mellitus; Z87.891 Personal history of nicotine dependence; Z90.710 Acquired absence of both cervix and uterus; Z88.2 Allergy status to sulfonamides; Z88.8 Allergy status to other drugs, medicaments and biological substances; Z91.013 Allergy to seafood
CPT/HCPCS: 36415; 80048; 80053; 81001; 81025; 82010; 82962; 85025; J1815; J2270; J2405; J3010; J7030; G0378

== ENCOUNTER 2019-11-02 01:15 | Emergency (ER) | payer BC ==
[~2019-11-02] VITALS: Ht 162.6 cm; Wt 86.4 kg
[~2019-11-02 01:15] MED LIST changes: +ALPR2TAB2 PO; +DESV100T8 PO; +HYDR-2761 PO
--- NOTE | 2019-11-02 01:27 | PHYS DOC ---
Past Medical History Past Medical History: Anxiety, Depression, Diabetes-Type II, Pancreatitis, Other Additional Past Medical Histor: NON-ALCHOL RELATED FATTY LIVER, HYDROADENITIS, HEARTBURN Past Surgical History: Cholecystectomy, Hysterectomy, Tonsillectomy Additional Past Surgical Histo: bilateral ankles, multiple abscess removal surgeries, breast reduction Smoking Status: Current Every Day Smoker Alcohol Use: None Drug Use: None Adult General Chief Complaint Chief Complaint: HYPERGLYCEMIA HPI HPI 39-year-old female insulin dependent diabetic presents to the emergency department with complaints of elevated blood sugar. Patient was discharged on November 01, 2019, date is currently October. Patient takes 120 units of Lantus as well as 50 units 3 times a day with meals. Patient states she went home today after discharge took a nap had chicken, green beans and mashed potatoes subsequent elevation of her blood sugar and therefore presented to the ER for further evaluation. Complaints of nausea. Denies any chest pain, shortness breath, abdominal pain. Nothing makes her symptoms worse, nothing major symptoms better. Review of Systems Review of Systems Constitutional: Denies fever or chills [] Respiratory: Denies cough or shortness of breath [] Cardiovascular: No additional information not addressed in HPI [] GI: Denies abdominal pain, + nausea, no vomiting, bloody stools or diarrhea [] : Denies dysuria or hematuria [] Musculoskeletal: Denies back pain or joint pain [] Integument: Denies rash or skin lesions [] Neurologic: Denies headache, focal weakness or sensory changes [] All other systems were reviewed and found to be within normal limits, except as documented in this note. Current Medications Current Medications Current Medications Medications (Trade) Dose Ordered Sig/Taqueria Start Time Stop Time Status Last Admin Dose Admin Acetaminophen (Tylenol) 1,000 mg 1X ONCE 11/02/19 02:30 11/02/19 02:31 DC Insulin Human Regular (HumuLIN R VIAL) 10 unit 1X ONCE 11/02/19 02:00 11/02/19 02:01 DC 11/02/19 01:53 10 UNIT Ondansetron HCl (Zofran Odt) 4 mg 1X ONCE 11/02/19 02:30 11/02/19 02:31 DC 11/02/19 02:17 4 MG Sodium Chloride 1,000 ml @ 1,000 mls/hr Q1H 11/02/19 02:00 11/02/19 02:59 11/02/19 01:52 1,000 MLS/HR Allergies Allergies Allergies Coded Allergies Type Severity Reaction Last Updated Verified levofloxacin Allergy Intermediate Rash 05/13/19 Yes shellfish derived Allergy Intermediate RASH/ITCH 09/15/19 Yes vancomycin Allergy Intermediate Rash 05/13/19 Yes Physical Exam Physical Exam Constitutional: Well developed, well nourished, no acute distress, non-toxic appearance. [] HENT: Normocephalic, atraumatic, bilateral external ears normal, oropharynx moist, no oral exudates, nose normal. [] Eyes: PERRLA, EOMI, conjunctiva normal, no discharge. [] Cardiovascular: tachycardia Lungs & Thorax: Bilateral breath sounds clear to auscultation [] Abdomen: Bowel sounds normal, soft, no tenderness, no masses, no pulsatile masses. [] Skin: Warm, dry, no erythema, no rash. [] Back: No tenderness, no CVA tenderness. [] Extremities: No tenderness, no edema. [] Neurologic: Alert and oriented X 3, no focal deficits noted. [] Psychologic: Affect normal, judgement normal, mood normal. [] Current Patient Data Vital Signs Vital Signs Date Time Temp Pulse Resp B/P (MAP) Pulse Ox O2 Delivery O2 Flow Rate FiO2 11/02/19 01:20 97.9 109 18 133/75 (94) 97 Room Air 97.9 Lab Values Laboratory Tests Test 11/02/19 01:24 11/02/19 01:32 11/02/19 01:48 11/02/19 02:27 Urine Collection Type Unknown Urine Color Yellow Urine Clarity Clear Urine pH 6.5 Urine Specific [place] >=1.030 Urine Protein Negative mg/dL (NEG-TRACE) Urine Glucose (UA) >=1000 mg/dL (NEG) Urine Ketones (Stick) Negative mg/dL (NEG) Urine Blood Large (NEG) Urine Nitrite Negative (NEG) Urine Bilirubin Negative (NEG) Urine Urobilinogen Dipstick 0.2 mg/dL (0.2 mg/dL) Urine Leukocyte Esterase Negative (NEG) Urine RBC Tntc /HPF (0-2) Urine WBC 1-4 /HPF (0-4) Urine Squamous Epithelial Cells Few /LPF Urine Bacteria Few /HPF (0-FEW) Glucose (Fingerstick) 449 mg/dL (70-99) H 361 mg/dL (70-99) H White Blood Count 8.1 x10^3/uL (4.0-11.0) Red Blood Count 4.46 x10^6/uL (3.50-5.40) Hemoglobin 12.6 g/dL (12.0-15.5) Hematocrit 36.8 % (36.0-47.0) Mean Corpuscular Volume 83 fL (79-100) Mean Corpuscular Hemoglobin 28 pg (25-35) Mean Corpuscular Hemoglobin Concent 34 g/dL (31-37) Red Cell Distribution Width 16.8 % (11.5-14.5) H Platelet Count 189 x10^3/uL (140-400) Neutrophils (%) (Auto) 66 % (31-73) Lymphocytes (%) (Auto) 25 % (24-48) Monocytes (%) (Auto) 6 % (0-9) Eosinophils (%) (Auto) 1 % (0-3) Basophils (%) (Auto) 1 % (0-3) Neutrophils # (Auto) 5.4 x10^3/uL (1.8-7.7) Lymphocytes # (Auto) 2.0 x10^3/uL (1.0-4.8) Monocytes # (Auto) 0.5 x10^3/uL (0.0-1.1) Eosinophils # (Auto) 0.1 x10^3/uL (0.0-0.7) Basophils # (Auto) 0.1 x10^3/uL (0.0-0.2) Sodium Level 139 mmol/L (136-145) Potassium Level 3.7 mmol/L (3.5-5.1) Chloride Level 99 mmol/L (98-107) Carbon Dioxide Level 27 mmol/L (21-32) Anion Gap 13 (6-14) Blood Urea Nitrogen 6 mg/dL (7-20) L Creatinine 1.0 mg/dL (0.6-1.0) Estimated GFR (Cockcroft-Gault) 61.7 BUN/Creatinine Ratio 6 (6-20) Glucose Level 466 mg/dL (70-99) H Calcium Level 9.2 mg/dL (8.5-10.1) Total Bilirubin 0.3 mg/dL (0.2-1.0) Aspartate Amino Transferase (AST) 47 U/L (15-37) H Alanine Aminotransferase (ALT) 101 U/L (14-59) H Alkaline Phosphatase 102 U/L (46-116) Total Protein 6.9 g/dL (6.4-8.2) Albumin 3.5 g/dL (3.4-5.0) Albumin/Globulin Ratio 1.0 (1.0-1.7) Acetone Level Neg (NEG) Laboratory Tests 11/02/19 01:48 Laboratory Tests 11/02/19 01:48 EKG EKG [] Radiology/Procedures Radiology/Procedures [] Course & Med Decision Making Course & Med Decision Making Pertinent Labs and Imaging studies reviewed. (See chart for details) []39-year-old female insulin dependent diabetic presents to the emergency department with complaints of elevated blood sugar. Patient was discharged on November 01, 2019, date is currently October. Patient takes 120 units of Lantus as well as 50 units 3 times a day with meals. Patient states she went home today after discharge took a nap had chicken, green beans and mashed potatoes subsequent elevation of her blood sugar and therefore presented to the ER for further evaluation. Complaints of nausea. Denies any chest pain, shortness breath, abdominal pain. Nothing makes her symptoms worse, nothing major symptoms better. Labs reviewed - no evidence of DKA Insulin 10U regular IV x 1 IVF 1 liter initiated in ER Zofran ODT, Tylenol 1000mg Recheck BS < 400 Dragon Disclaimer Dragon Disclaimer This electronic medical record was generated, in whole or in part, using a voice recognition dictation system. Departure Departure Impression: Primary Impression: Hyperglycemia Additional Impression: Uncontrolled diabetes mellitus Disposition: HOME, SELF-CARE Condition: STABLE Referrals: JANET FULLER (PCP) Patient Instructions: Hyperglycemia, [id number] Additional Instructions: BS elevated - no evidence of DKA IVF/Zofran provided in ER Recommend follow up with PCP as needed for BS control Zofran rx provided upon discharge for nausea Scripts Ondansetron Hcl (ZOFRAN) 4 Mg Tablet 1 TAB PO PRN Q6-8HRS, #12 TAB Prov: MILDRED HOUGH MD 11/02/19 Problem Qualifiers Additional Impression: Uncontrolled diabetes mellitus Diabetes mellitus type: type 1 Glycemic state: with hyperglycemia Qual ified Codes: E10.65 - Type 1 diabetes mellitus with hyperglycemia MILDRED HOUGH MD Nov 02, 2019 01:27
[2019-11-02 01:31] LABS: BILIRUBIN,URINE NEGATIVE (NEG); CLARITY,URINE CLEAR; COLOR,URINE YELLOW; NITRITE,URINE NEGATIVE (NEG); PH,URINE 6.5; PROTEIN,URINE NEGATIVE (NEG-TRACE); UROBILINOGEN,URINE 0.2 mg/dL (0.2 mg/dL)
[2019-11-02 01:45] LABS: BACTERIA,URINE FEW /HPF (0-FEW); RBC,URINE TNTC /HPF (0-2); SQUAMOUS EPITHELIAL CELL,UR FEW /LPF
[2019-11-02 01:56] LABS: BASO # 0.1 x10^3/uL (0.0-0.2); BASO % 1 % (0-3); EOS # 0.1 x10^3/uL (0.0-0.7); EOS % 1 % (0-3); HEMATOCRIT 36.8 % (36.0-47.0); HEMOGLOBIN 12.6 g/dL (12.0-15.5); LYMPH % 25 % (24-48); MEAN CORPUSCULAR HEMOGLOBIN 28 pg (25-35); MEAN CORPUSCULAR HGB CONC 34 g/dL (31-37); MEAN CORPUSCULAR VOLUME 83 fL (79-100); MONO # 0.5 x10^3/uL (0.0-1.1); MONO % 6 % (0-9); NEUT # 5.4 x10^3/uL (1.8-7.7); NEUT % 66 % (31-73); PLATELET COUNT 189 x10^3/uL (140-400); RED BLOOD COUNT 4.46 x10^6/uL (3.50-5.40); RED CELL DISTRIBUTION WIDTH 16.8 % (11.5-14.5); WHITE BLOOD COUNT 8.1 x10^3/uL (4.0-11.0)
[2019-11-02] MEDS ORDERED: INSULIN REGULAR 100 UNIT/ML 3ML VIAL. IV ONE (02:00)
[2019-11-02] MEDS ORDERED: IV NORMAL SALINE 1000ML BAG 1,000 ML IV SCH (02:00)
[2019-11-02 02:04] LABS: CALCIUM 9.2 mg/dL (8.5-10.1); GFR 61.7; POTASSIUM 3.7 mmol/L (3.5-5.1)
[2019-11-02 02:09] LABS: ALBUMIN 3.5 g/dL (3.4-5.0); TOTAL BILIRUBIN 0.3 mg/dL (0.2-1.0); TOTAL PROTEIN 6.9 g/dL (6.4-8.2)
[2019-11-02] MEDS ORDERED: ONDA4TAB7 PO (02:14)
[2019-11-02] MEDS ORDERED: ACETAMINOPHEN 500 MG TABLET PO ONE (02:30)
[2019-11-02] MEDS ORDERED: ONDANSETRON ODT 4 MG TAB.RAPDIS. PO ONE (02:30)
[2019-11-02 03:22] VITALS: BP 107/59
== END 2019-11-02 03:26 | disposition home or self-care (01) ==
LOC: ER 01:15
DX: E11.65 Type 2 diabetes mellitus with hyperglycemia (principal); F17.200 Nicotine dependence, unspecified, uncomplicated; Z90.49 Acquired absence of other specified parts of digestive tract; Z90.89 Acquired absence of other organs; Z90.710 Acquired absence of both cervix and uterus; Z98.890 Other specified postprocedural states; Z88.1 Allergy status to other antibiotic agents; Z91.013 Allergy to seafood; Z79.4 Long term (current) use of insulin
CPT/HCPCS: 36415; 80053; 81001; 82010; 82962; 85025; 96361; 96374; 99285; J1815; J7030; Q0162

== ENCOUNTER 2019-11-15 22:57 | Emergency (ER) | payer BC ==
[~2019-11-15] VITALS: Ht 162.6 cm; Wt 84.0 kg
--- NOTE | 2019-11-15 23:17 | PHYS DOC ---
Past Medical History Past Medical History: Anxiety, Depression, Diabetes-Type II, Pancreatitis, Other Additional Past Medical Histor: NON-ALCHOL RELATED FATTY LIVER, HYDROADENITIS, HEARTBURN Past Surgical History: Cholecystectomy, Hysterectomy, Tonsillectomy Additional Past Surgical Histo: bilateral ankles, multiple abscess removal surgeries, breast reduction Smoking Status: Current Every Day Smoker Alcohol Use: None Drug Use: None Adult General Chief Complaint Chief Complaint: HYPERGLYCEMIA HPI HPI Patient is a 39 year old female with insulin-dependent diabetes which is very poorly controlled who presents with complaint of hyperglycemia. She states her blood glucose was in the 600s prior to arrival and she took 26 units of fast acting insulin around 10:00. She reports taking a sliding scale between 20 and 30 units 3 times daily and also 60 units of Lantus in the morning and 60 units of Lantus in the evening for her diabetes. She was recently in the hospital and discharged on October 31 for hyperglycemia and she returned to the ER on November 01 at which time she was worked up and discharged home from the ER. She denies nausea or vomiting. Review of Systems Review of Systems All other systems were reviewed and found to be within normal limits, except as documented in this note. Current Medications Current Medications Current Medications Medications (Trade) Dose Ordered Sig/Taqueria Start Time Stop Time Status Last Admin Dose Admin Insulin Human Regular (HumuLIN R VIAL) 8 unit 1X ONCE 11/15/19 23:30 11/15/19 23:31 DC 11/15/19 23:29 8 UNIT Ondansetron HCl (Zofran) 4 mg 1X ONCE 11/16/19 00:30 11/16/19 00:31 11/16/19 00:04 4 MG Sodium Chloride 1,000 ml @ 1,000 mls/hr 1X ONCE 11/15/19 23:30 11/16/19 00:29 11/15/19 23:27 1,000 MLS/HR Allergies Allergies Allergies Coded Allergies Type Severity Reaction Last Updated Verified levofloxacin Allergy Intermediate Rash 05/13/19 Yes shellfish derived Allergy Intermediate RASH/ITCH 09/15/19 Yes vancomycin Allergy Intermediate Rash 05/13/19 Yes Physical Exam Physical Exam Constitutional: Well developed, well nourished, no acute distress, non-toxic appearance. [] HENT: Normocephalic, atraumatic, bilateral external ears normal, oropharynx moist, no oral exudates, nose normal. [] Eyes: PERRLA, EOMI, conjunctiva normal, no discharge. [] Neck: Normal range of motion, no tenderness, supple, no stridor. [] Cardiovascular:Heart rate regular rhythm, no murmur [] Lungs & Thorax: Bilateral breath sounds clear to auscultation [] Abdomen: Bowel sounds normal, soft, no tenderness, no masses, no pulsatile masses. [] Skin: Warm, dry, no erythema, no rash. [] Back: No tenderness, no CVA tenderness. [] Extremities: No tenderness, no cyanosis, no clubbing, ROM intact, no edema. [] Neurologic: Alert and oriented X 3, normal motor function, normal sensory function, no focal deficits noted. [] Psychologic: Affect normal, judgement normal, mood normal. [] Current Patient Data Vital Signs Vital Signs Date Time Temp Pulse Resp B/P (MAP) Pulse Ox O2 Delivery O2 Flow Rate FiO2 11/15/19 23:22 100 18 133/71 (91) 97 Room Air 11/15/19 23:11 98.3 98.3 Lab Values Laboratory Tests Test 11/15/19 23:10 11/15/19 23:15 11/15/19 23:49 11/16/19 00:07 Urine Collection Type Unknown Urine Color Yellow Urine Clarity Clear Urine pH 5.5 (<5.0-8.0) Urine Specific [place] >=1.030 (1.000-1.030) Urine Protein Negative mg/dL (NEG-TRACE) Urine Glucose (UA) >=1000 mg/dL (NEG) Urine Ketones (Stick) Negative mg/dL (NEG) Urine Blood Moderate (NEG) Urine Nitrite Negative (NEG) Urine Bilirubin Negative (NEG) Urine Urobilinogen Dipstick 0.2 mg/dL (0.2 mg/dL) Urine Leukocyte Esterase Negative (NEG) Urine RBC 20-40 /HPF (0-2) Urine WBC 1-4 /HPF (0-4) Urine Squamous Epithelial Cells Mod /LPF Urine Bacteria Few /HPF (0-FEW) Urine Mucus Slight /LPF Sodium Level 136 mmol/L (136-145) Potassium Level 3.8 mmol/L (3.5-5.1) Chloride Level 99 mmol/L (98-107) Carbon Dioxide Level 26 mmol/L (21-32) Anion Gap 11 (6-14) Blood Urea Nitrogen 9 mg/dL (7-20) Creatinine 1.0 mg/dL (0.6-1.0) Estimated GFR (Cockcroft-Gault) 61.7 Glucose Level 417 mg/dL (70-99) H Calcium Level 8.9 mg/dL (8.5-10.1) Acetone Level Neg (NEG) White Blood Count 9.5 x10^3/uL (4.0-11.0) Red Blood Count 4.25 x10^6/uL (3.50-5.40) Hemoglobin 12.2 g/dL (12.0-15.5) Hematocrit 35.1 % (36.0-47.0) L Mean Corpuscular Volume 83 fL (79-100) Mean Corpuscular Hemoglobin 29 pg (25-35) Mean Corpuscular Hemoglobin Concent 35 g/dL (31-37) Red Cell Distribution Width 17.0 % (11.5-14.5) H Platelet Count 212 x10^3/uL (140-400) Neutrophils (%) (Auto) 67 % (31-73) Lymphocytes (%) (Auto) 27 % (24-48) Monocytes (%) (Auto) 5 % (0-9) Eosinophils (%) (Auto) 1 % (0-3) Basophils (%) (Auto) 1 % (0-3) Neutrophils # (Auto) 6.3 x10^3/uL (1.8-7.7) Lymphocytes # (Auto) 2.5 x10^3/uL (1.0-4.8) Monocytes # (Auto) 0.4 x10^3/uL (0.0-1.1) Eosinophils # (Auto) 0.1 x10^3/uL (0.0-0.7) Basophils # (Auto) 0.1 x10^3/uL (0.0-0.2) Glucose (Fingerstick) 350 mg/dL (70-99) H Laboratory Tests 11/15/19 23:49 Laboratory Tests 11/15/19 23:15 EKG EKG [] Radiology/Procedures Radiology/Procedures [] Course & Med Decision Making Course & Med Decision Making Pertinent Labs and Imaging studies reviewed. (See chart for details) 2316: Patient seen for hyperglycemia. Fingerstick glucose is 382 so we will give an additional 8 units of IV regular insulin. Give 1 L IV fluid, check labs and discharge home if glucose is controlled and labs are unremarkable. 0010: Repeat Accu-Chek is at 350. Will give an additional 10 units of insulin, finished IV fluids, and discharge home. Dragon Disclaimer Dragon Disclaimer This electronic medical record was generated, in whole or in part, using a voice recognition dictation system. Departure Departure Impression: Primary Impression: Poorly controlled type 2 diabetes mellitus Additional Impression: Hyperglycemia Disposition: HOME, SELF-CARE Condition: IMPROVED Referrals: JANET FULLER (PCP) Patient Instructions: Insulin Treatment in Diabetes Problem Qualifiers HERVE MCCLELLAN DO Nov 15, 2019 23:17
[2019-11-15 23:27] LABS: BILIRUBIN,URINE NEGATIVE (NEG); CLARITY,URINE CLEAR; COLOR,URINE YELLOW; NITRITE,URINE NEGATIVE (NEG); PH,URINE 5.5 (<5.0-8.0); PROTEIN,URINE NEGATIVE (NEG-TRACE); UROBILINOGEN,URINE 0.2 mg/dL (0.2 mg/dL)
[2019-11-15] MEDS ORDERED: IV NORMAL SALINE 1000ML BAG 1,000 ML IV ONE (23:30)
[2019-11-15] MEDS ORDERED: INSULIN REGULAR 100 UNIT/ML 3ML VIAL. IV ONE (23:30)
[2019-11-15 23:35] LABS: BACTERIA,URINE FEW /HPF (0-FEW); RBC,URINE 20-40 /HPF (0-2); SQUAMOUS EPITHELIAL CELL,UR MOD /LPF
[2019-11-15 23:36] LABS: CALCIUM 8.9 mg/dL (8.5-10.1); GFR 61.7; POTASSIUM 3.8 mmol/L (3.5-5.1)
[2019-11-15 23:56] LABS: BASO # 0.1 x10^3/uL (0.0-0.2); BASO % 1 % (0-3); EOS # 0.1 x10^3/uL (0.0-0.7); EOS % 1 % (0-3); HEMATOCRIT 35.1 % (36.0-47.0); HEMOGLOBIN 12.2 g/dL (12.0-15.5); LYMPH # 2.5 x10^3/uL (1.0-4.8); LYMPH % 27 % (24-48); MEAN CORPUSCULAR HEMOGLOBIN 29 pg (25-35); MEAN CORPUSCULAR HGB CONC 35 g/dL (31-37); MEAN CORPUSCULAR VOLUME 83 fL (79-100); MONO # 0.4 x10^3/uL (0.0-1.1); MONO % 5 % (0-9); NEUT # 6.3 x10^3/uL (1.8-7.7); NEUT % 67 % (31-73); PLATELET COUNT 212 x10^3/uL (140-400); RED BLOOD COUNT 4.25 x10^6/uL (3.50-5.40); WHITE BLOOD COUNT 9.5 x10^3/uL (4.0-11.0)
[2019-11-16] MEDS ORDERED: INSULIN REGULAR 100 UNIT/ML 3ML VIAL. IV ONE (00:30)
[2019-11-16] MEDS ORDERED: ONDANSETRON PF 4 MG/2 ML VIAL. IVP ONE (00:30)
[2019-11-16 00:45] VITALS: BP 132/70
== END 2019-11-16 00:58 | disposition home or self-care (01) ==
LOC: ER 22:57
DX: E11.65 Type 2 diabetes mellitus with hyperglycemia (principal); F17.200 Nicotine dependence, unspecified, uncomplicated; Z79.4 Long term (current) use of insulin; Z88.1 Allergy status to other antibiotic agents; Z91.013 Allergy to seafood
CPT/HCPCS: 36415; 80048; 81001; 82010; 82962; 83690; 85025; 96361; 96374; 96375; 96376; 99284; J1815; J2405; J7030

== ENCOUNTER 2019-11-22 22:42 | Emergency (ER) | payer BC ==
[~2019-11-22] VITALS: Ht 162.6 cm; Wt 86.4 kg
--- NOTE | 2019-11-22 23:25 | PHYS DOC ---
Past Medical History Past Medical History: Anxiety, Depression, Diabetes-Type II, Pancreatitis, Other Additional Past Medical Histor: NON-ALCHOL RELATED FATTY LIVER, HYDROADENITIS, HEARTBURN Past Surgical History: Cholecystectomy, Hysterectomy, Tonsillectomy Additional Past Surgical Histo: bilateral ankles, multiple abscess removal surgeries, breast reduction Smoking Status: Current Every Day Smoker Alcohol Use: None Drug Use: None Adult General Chief Complaint Chief Complaint: HYPOGLYCEMIA HPI HPI Patient is a 39 year old female who presents with hypoglycemia. The patient states that she has type 2 diabetes and her last a1c was 10.2. The patient has an insulin meter that shows an real-time reading of her blood sugars. The patient states that over the last couple hours her blood sugars have been reading low and then going up into the 80s and then cycling back down to the 40s and 50s. The patient also states that she has been having a cough for the last couple days along with shortness of breath. She also states she has been having a little bit of LUQ abdominal pain. She states that she took her insulin this morning and has been eating regularly today. Complete ROS were reviewed and found to be within normal limits, except as doc umented in the HPI Current Medications Current Medications Current Medications Medications (Trade) Dose Ordered Sig/Taqueria Start Time Stop Time Status Last Admin Dose Admin Fentanyl Citrate (Fentanyl 2ml Vial) 50 mcg 1X ONCE 11/22/19 23:30 11/22/19 23:32 DC 11/22/19 23:55 50 MCG Ondansetron HCl (Zofran) 4 mg 1X ONCE 11/22/19 23:30 11/22/19 23:32 DC 11/22/19 23:54 4 MG Allergies Allergies Allergies Coded Allergies Type Severity Reaction Last Updated Verified levofloxacin Allergy Intermediate Rash 05/13/19 Yes shellfish derived Allergy Intermediate RASH/ITCH 09/15/19 Yes vancomycin Allergy Intermediate Rash 05/13/19 Yes Physical Exam Physical Exam Constitutional: Well developed, well nourished, no acute distress, non-toxic appearance. [] HENT: Normocephalic, atraumatic, bilateral external ears normal, oropharynx moist, no oral exudates, nose normal. [] Eyes: PERRLA, EOMI, conjunctiva normal, no discharge. [] Neck: Normal range of motion, no tenderness, supple, no stridor. [] Cardiovascular:Heart rate regular rhythm, no murmur [] Lungs & Thorax: Bilateral breath sounds clear to auscultation [] Abdomen: Bowel sounds normal, soft, mild tenderness to LUQ, no masses, no pulsatile masses. [] Neurologic: Alert and oriented X 3, normal motor function, normal sensory function, no focal deficits noted. [] Psychologic: Affect normal, judgement normal, mood normal. [] Current Patient Data Vital Signs Vital Signs Date Time Temp Pulse Resp B/P (MAP) Pulse Ox O2 Delivery O2 Flow Rate FiO2 11/22/19 23:55 18 97 Room Air Lab Values Laboratory Tests Test 11/22/19 22:54 11/22/19 23:30 11/22/19 23:52 11/23/19 02:02 Glucose (Fingerstick) 82 mg/dL (70-99) 62 mg/dL (70-99) L White Blood Count 11.6 x10^3/uL (4.0-11.0) H Red Blood Count 4.40 x10^6/uL (3.50-5.40) Hemoglobin 12.1 g/dL (12.0-15.5) Hematocrit 35.9 % (36.0-47.0) L Mean Corpuscular Volume 82 fL (79-100) Mean Corpuscular Hemoglobin 28 pg (25-35) Mean Corpuscular Hemoglobin Concent 34 g/dL (31-37) Red Cell Distribution Width 16.5 % (11.5-14.5) H Platelet Count 236 x10^3/uL (140-400) Neutrophils (%) (Auto) 78 % (31-73) H Lymphocytes (%) (Auto) 14 % (24-48) L Monocytes (%) (Auto) 7 % (0-9) Eosinophils (%) (Auto) 1 % (0-3) Basophils (%) (Auto) 0 % (0-3) Neutrophils # (Auto) 9.0 x10^3/uL (1.8-7.7) H Lymphocytes # (Auto) 1.7 x10^3/uL (1.0-4.8) Monocytes # (Auto) 0.8 x10^3/uL (0.0-1.1) Eosinophils # (Auto) 0.1 x10^3/uL (0.0-0.7) Basophils # (Auto) 0.0 x10^3/uL (0.0-0.2) Prothrombin Time 14.0 SEC (11.7-14.0) Prothrombin Time INR 1.1 (0.8-1.1) Activated Partial Thromboplast Time 33 SEC (24-38) Sodium Level 143 mmol/L (136-145) Potassium Level 3.5 mmol/L (3.5-5.1) Chloride Level 106 mmol/L (98-107) Carbon Dioxide Level 26 mmol/L (21-32) Anion Gap 11 (6-14) Blood Urea Nitrogen 7 mg/dL (7-20) Creatinine 0.6 mg/dL (0.6-1.0) Estimated GFR (Cockcroft-Gault) 111.3 BUN/Creatinine Ratio 12 (6-20) Glucose Level 83 mg/dL (70-99) Calcium Level 9.4 mg/dL (8.5-10.1) Magnesium Level 1.8 mg/dL (1.8-2.4) Total Bilirubin 0.4 mg/dL (0.2-1.0) Aspartate Amino Transferase (AST) 49 U/L (15-37) H Alanine Aminotransferase (ALT) 80 U/L (14-59) H Alkaline Phosphatase 112 U/L (46-116) Total Protein 6.9 g/dL (6.4-8.2) Albumin 3.4 g/dL (3.4-5.0) Albumin/Globulin Ratio 1.0 (1.0-1.7) Ethyl Alcohol Level < 10 mg/dL (0-10) Urine Collection Type Void Urine Color Yellow Urine Clarity Clear Urine pH 7.5 (<5.0-8.0) Urine Specific [place] 1.020 (1.000-1.030) Urine Protein Negative mg/dL (NEG-TRACE) Urine Glucose (UA) 100 mg/dL (NEG) Urine Ketones (Stick) Trace mg/dL (NEG) Urine Blood Negative (NEG) Urine Nitrite Negative (NEG) Urine Bilirubin Small (NEG) Urine Urobilinogen Dipstick 1.0 mg/dL (0.2 mg/dL) Urine Leukocyte Esterase Small (NEG) Urine RBC 1-2 /HPF (0-2) Urine WBC 5-10 /HPF (0-4) Urine Squamous Epithelial Cells Few /LPF Urine Bacteria Few /HPF (0-FEW) Urine Mucus Mod /LPF Urine Opiates Screen Pos (NEG) Urine Methadone Screen Neg (NEG) Urine Barbiturates Neg (NEG) Urine Phencyclidine Screen Neg (NEG) Urine Amphetamine/Methamphetamine Neg (NEG) Urine Benzodiazepines Screen Pos (NEG) Urine Cocaine Screen Neg (NEG) Urine Cannabinoids Screen Neg (NEG) Urine Ethyl Alcohol Neg (NEG) Laboratory Tests 11/22/19 23:30 Laboratory Tests 11/22/19 23:30 EKG EKG [] Radiology/Procedures Radiology/Procedures [][facility] [address] [place] [address] IMAGING REPORT Signed PATIENT: RON REYNA ACCOUNT: [id number] : 1980 LOCATION: ER AGE: 39 SEX: F EXAM STATUS: REG ER ORD. PHYSICIAN: ANA SELLERS APRN REASON: cough PROCEDURE: PORTABLE CHEST 1V Study: PORTABLE CHEST 1V Indication: Cough. Comparison: 10/16/2019 Findings: The heart appears slightly more prominent from the prior and the right infrahilar region is somewhat more hazy however this is likely in part related to lower lung volumes. No confluent infiltrate. No pleural effusion or pneumothorax. Impression: No significant interval change from 10/16/2019 given slightly lower lung volumes from the comparison. No localized consolidation to suggest an organizing pneumonia. Electronically signed by: SYBIL PAVON MD (11/22/2019 11:22 PM) [id number] DICTATED and SIGNED BY: SYBIL PAVON MD DATE: 11/22/19 2322 Course & Med Decision Making Course & Med Decision Making Pertinent Labs and Imaging studies reviewed. (See chart for details) Patient is been having shortness of breath and cough. Will get a chest x-ray, will also get labs. Patient states that her blood sugar was reading in the 40s and so also have her eat some food while in the ER. Blood sugar has been stable in ER. Labs are unremarkable with exception of slightly elevated WBC at 11,000. Urine shows: Dragon Disclaimer Dragon Disclaimer This electronic medical record was generated, in whole or in part, using a voice recognition dictation system. Departure Departure Impression: Primary Impression: Hypoglycemia Additional Impressions: Suspected 2019 novel coronavirus infection Urinary tract infection Disposition: 01 HOME, SELF-CARE Condition: STABLE Referrals: JANET FULLER (PCP) Patient Instructions: Hypoglycemia (Low Blood Sugar), Urinary Tract Infection Additional Instructions: Thank you for visiting [facility]. We appreciate you trusting us with your care. If any additional problems come up don't hesitate to return to visit us. Please follow up with your primary care provider so they can plan additional care if needed and know about the problem that you had. If symptoms worsen come back to the Emergency Department. Any concerning symptoms that start such as chest pain, shortness of air, weakness or numbness on one side of the body, running high fevers or any other concerning symptoms return to the ER. You have a viral syndrome which may include symptoms like muscle aches, fevers, chills, runny nose, cough, sneezing, sore throat, vomiting, or diarrhea. One of the potential viruses that you may have is SARS-CoV-2, the virus that causes COVID-19, also known as the Coronavirus. You are just as likely to have a different viral infection such as the common cold, flu, etc. Most patients with the Coronavirus have mild symptoms and recover on their own. Resting, staying hydrated, and sleep from known cases can be helpful. As of todays visit, you are well enough to go home and treat your symptoms with oral fluids and over the counter medications. Coronavirus testing is not performed on most people with mild symptoms who are being discharged from the emergency department. If Coronavirus testing was performed the results will not be available for possibly up to 2-3 days. If your result is positive you will be contacted. Please follow the following precautions at home: 1) Stay home except to get medical care. 2) As advised by the CDC we recommend you stay in your home and minimize contact with other people. We do not want you to spread the infection. 3) Those who are older or have significant medical issues may have more severe symptoms from this infection. We recommend self-isolation,FOR AT LEAST 7 DAYS after your 1st day of symptoms. AFTER you feel better please wait AT LEAST ANOTHER WEEK before returning to regular activities and being around other people! 4) IF you become sicker and have difficulty breathing, chest pain, unable to eat/drink, severe vomiting, diarrhea, or weakness you may need to return to the Emergency Department. 5) You should restrict activities outside your home, except for getting medical care. DO NOT go to work, school, or public areas. Avoid using public transportation, ride sharing, or taxis. 6) Separate yourself from other people in your home. You should use a separate bathroom if possible. 7) Avoid sharing personal household items such as dishes, cups, eating utensils, towels, etc. 8) Clean all high touch surfaces every day (door knobs, counter tops, etc). Use a household cleaning spray or wipe per label instructions. 9) Clean your hands often. Wash your hands with soap and water for at least 20 seconds. 10) Cover your mouth and nose with a tissue when you cough or sneeze. 11) Throw used tissues in a trash can and immediately wash your hands. For additional resources please visit the CDC website or the [place] [facility] ([phone]). Scripts Cephalexin (KEFLEX) 500 Mg Capsule 1 CAP PO BID for 7 Days, #14 CAP 0 Refills Prov: ANA SELLERS APRN 11/23/19 Problem Qualifiers Additional Impressions: Urinary tract infection Urinary tract infection type: acute cystitis Hematuria presence: without hematuria Qualified Codes: N30.00 - Acute cystitis without hematuria ANA SELLERS APRN Nov 22, 2019 23:25
[2019-11-22 23:43] LABS: BASO % 0 % (0-3); EOS # 0.1 x10^3/uL (0.0-0.7); EOS % 1 % (0-3); HEMATOCRIT 35.9 % (36.0-47.0); HEMOGLOBIN 12.1 g/dL (12.0-15.5); LYMPH # 1.7 x10^3/uL (1.0-4.8); LYMPH % 14 % (24-48); MEAN CORPUSCULAR HEMOGLOBIN 28 pg (25-35); MEAN CORPUSCULAR HGB CONC 34 g/dL (31-37); MEAN CORPUSCULAR VOLUME 82 fL (79-100); MONO # 0.8 x10^3/uL (0.0-1.1); MONO % 7 % (0-9); NEUT % 78 % (31-73); PLATELET COUNT 236 x10^3/uL (140-400); RED CELL DISTRIBUTION WIDTH 16.5 % (11.5-14.5); WHITE BLOOD COUNT 11.6 x10^3/uL (4.0-11.0)
[2019-11-22 23:54] LABS: CALCIUM 9.4 mg/dL (8.5-10.1); CREATININE 0.6 mg/dL (0.6-1.0); GFR 111.3; POTASSIUM 3.5 mmol/L (3.5-5.1)
[2019-11-22] MEDS: ONDANSETRON PF 4 MG/2 ML VIAL. IV ONE (23:54)
[2019-11-22] MEDS: fentaNYL PF VIAL 100 MCG/2 ML VIAL IV ONE (23:55)
[2019-11-22 23:57] LABS: ALBUMIN 3.4 g/dL (3.4-5.0); MAGNESIUM 1.8 mg/dL (1.8-2.4); TOTAL BILIRUBIN 0.4 mg/dL (0.2-1.0); TOTAL PROTEIN 6.9 g/dL (6.4-8.2)
[2019-11-23 00:48] VITALS: BP 138/62
[2019-11-23 02:43] LABS: CLARITY,URINE CLEAR; COLOR,URINE YELLOW
[2019-11-23 02:44] LABS: BILIRUBIN,URINE SMALL (NEG); PH,URINE 7.5 (<5.0-8.0); PROTEIN,URINE NEGATIVE (NEG-TRACE)
[2019-11-23 02:45] LABS: BACTERIA,URINE FEW /HPF (0-FEW); NITRITE,URINE NEGATIVE (NEG); SQUAMOUS EPITHELIAL CELL,UR FEW /LPF
[2019-11-23 02:47] LABS: AMPHETAMINE/METHAMPHETAMINE NEG (NEG); BARBITURATES NEG (NEG); BENZODIAZEPINES POS (NEG); COCAINE NEG (NEG)
[2019-11-23 02:48] LABS: CANNABINOIDS NEG (NEG); METHADONE NEG (NEG); OPIATES POS (NEG); PHENCYCLIDINE NEG (NEG)
[2019-11-23] MEDS ORDERED: CEPH-264 PO (02:54)
== END 2019-11-23 02:45 | disposition home or self-care (01) ==
LOC: ER 22:42
DX: E11.649 Type 2 diabetes mellitus with hypoglycemia without coma (principal); N30.00 Acute cystitis without hematuria; R06.02 Shortness of breath; R10.12 Left upper quadrant pain; F41.9 Anxiety disorder, unspecified; F32.9 Major depressive disorder, single episode, unspecified; K86.1 Other chronic pancreatitis; F17.200 Nicotine dependence, unspecified, uncomplicated; Z90.49 Acquired absence of other specified parts of digestive tract; Z98.890 Other specified postprocedural states; Z90.710 Acquired absence of both cervix and uterus; Z91.013 Allergy to seafood; Z88.1 Allergy status to other antibiotic agents
CPT/HCPCS: 36415; 71045; 80053; 80307; 81001; 82962; 83735; 84145; 85025; 85610; 85730; 87086; 96374; 96375; 99284; G0480; J2405; J3010

== ENCOUNTER 2019-12-25 17:13 | Emergency (ER) | payer BC ==
[~2019-12-25] VITALS: Ht 162.6 cm; Wt 86.0 kg
[~2019-12-25 17:13] MED LIST changes: +CEPH-264 PO
[2019-12-25] MEDS ORDERED: IV NORMAL SALINE 1000ML BAG 1,000 ML IV ONE (17:45)
[2019-12-25 17:56] LABS: BILIRUBIN,URINE NEGATIVE (NEG); CLARITY,URINE CLEAR; COLOR,URINE YELLOW; NITRITE,URINE NEGATIVE (NEG); PH,URINE 6.5 (<5.0-8.0); PROTEIN,URINE NEGATIVE (NEG-TRACE); UROBILINOGEN,URINE 0.2 mg/dL (0.2 mg/dL)
[2019-12-25 18:02] LABS: BASO # 0.1 x10^3/uL (0.0-0.2); BASO % 1 % (0-3); EOS # 0.1 x10^3/uL (0.0-0.7); EOS % 1 % (0-3); HEMATOCRIT 35.4 % (36.0-47.0); HEMOGLOBIN 11.8 g/dL (12.0-15.5); LYMPH % 21 % (24-48); MEAN CORPUSCULAR HEMOGLOBIN 27 pg (25-35); MEAN CORPUSCULAR HGB CONC 33 g/dL (31-37); MEAN CORPUSCULAR VOLUME 81 fL (79-100); MONO # 0.6 x10^3/uL (0.0-1.1); MONO % 6 % (0-9); NEUT # 6.6 x10^3/uL (1.8-7.7); NEUT % 71 % (31-73); PLATELET COUNT 199 x10^3/uL (140-400); RED BLOOD COUNT 4.37 x10^6/uL (3.50-5.40); RED CELL DISTRIBUTION WIDTH 16.8 % (11.5-14.5); WHITE BLOOD COUNT 9.3 x10^3/uL (4.0-11.0)
[2019-12-25 18:09] LABS: BACTERIA,URINE FEW /HPF (0-FEW); RBC,URINE OCC /HPF (0-2); SQUAMOUS EPITHELIAL CELL,UR MANY /LPF
[2019-12-25 18:14] LABS: CALCIUM 8.9 mg/dL (8.5-10.1); CREATININE 0.9 mg/dL (0.6-1.0); GFR 69.7
[2019-12-25 18:19] LABS: ALBUMIN 3.1 g/dL (3.4-5.0); ALBUMIN/GLOBULIN RATIO 0.8 (1.0-1.7); TOTAL BILIRUBIN 0.4 mg/dL (0.2-1.0); TOTAL PROTEIN 6.8 g/dL (6.4-8.2)
[2019-12-25] MEDS ORDERED: INSULIN REGULAR 100 UNIT/ML 3ML VIAL. IV ONE (18:30)
[2019-12-25] MEDS ORDERED: ONDANSETRON PF 4 MG/2 ML VIAL. IV ONE (18:45)
[2019-12-25] MEDS ORDERED: fentaNYL PF VIAL 100 MCG/2 ML VIAL IV ONE (18:45)
[2019-12-25] MEDS ORDERED: ONDA-84 PO (19:46)
--- NOTE | 2019-12-25 19:47 | PHYS DOC ---
Past Medical History Past Medical History: Anxiety, Depression, Diabetes-Type I, Pancreatitis, Other Additional Past Medical Histor: NON-ALCHOL RELATED FATTY LIVER, HYDROADENITIS, HEARTBURN Past Surgical History: Cholecystectomy, Hysterectomy, Tonsillectomy Additional Past Surgical Histo: bilateral ankles, multiple abscess removal surgeries, breast reduction Smoking Status: Current Every Day Smoker Alcohol Use: None Drug Use: None General Adult EDM: Chief Complaint: HYPERGLYCEMIA HPI: HPI: Patient is a 39 year old female who presents to the emergency department with complaints of blood sugars being around 500 for the last 2 days. Patient states she noticed that her blood sugars were elevated after she switched over to a new insulin pump. She also reports nausea, generalized weakness, upper abdominal pain, and increased urinary frequency. She denies any dysuria, hematuria, back pain, chest pain, palpitations, vomiting, diarrhea, constipation, fever, cough, or shortness of breath. She currently rates her pain 8 out of 10 on the pain sc cindy and states it is in the upper left portion of her abdomen. She denies any alleviating factors. Patient states her insulin dosing has not changed but she thinks that the new pump may not be working. Review of Systems: Review of Systems: Constitutional: Denies fever or chills. [] Eyes: Denies change in visual acuity. [] HENT: Denies nasal congestion or sore throat. [] Respiratory: Denies cough or shortness of breath. [] Cardiovascular: Denies chest pain or edema. [] GI: Denies vomiting, constipation, or diarrhea; see HPI : Denies dysuria; see HPI. [] Musculoskeletal: Denies back pain or joint pain. [] Integument: Denies rash. [] Neurologic: Denies headache, focal weakness or sensory changes. [] Endocrine: Reports polyuria Lymphatic: Denies swollen glands. [] Psychiatric: Denies depression or anxiety. [] Heart Score: Risk Factors: Risk Factors: DM, Current or recent (<one month) smoker, HTN, HLP, family history of CAD, obesity. Risk Scores: Score 0 - 3: 2.5% MACE over next 6 weeks - Discharge Home Score 4 - 6: 20.3% MACE over next 6 weeks - Admit for Clinical Observation Score 7 - 10: 72.7% MACE over next 6 weeks - Early Invasive Strategies Current Medications: Current Medications Medications (Trade) Dose Ordered Sig/Taqueria Start Time Stop Time Status Last Admin Dose Admin Fentanyl Citrate (Fentanyl 2ml Vial) 50 mcg 1X ONCE 12/25/19 18:45 12/25/19 18:46 DC 12/25/19 18:57 50 MCG Insulin Human Regular (HumuLIN R VIAL) 6 unit 1X ONCE 12/25/19 18:30 12/25/19 18:31 DC 12/25/19 18:40 6 UNIT Ondansetron HCl (Zofran) 4 mg 1X ONCE 12/25/19 18:45 12/25/19 18:46 DC 12/25/19 18:56 4 MG Sodium Chloride 1,000 ml @ 1,000 mls/hr 1X ONCE 12/25/19 17:45 12/25/19 18:44 DC 12/25/19 18:01 1,000 MLS/HR Allergies: Allergies: Allergies Coded Allergies Type Severity Reaction Last Updated Verified levofloxacin Allergy Intermediate Rash 05/13/19 Yes shellfish derived Allergy Intermediate RASH/ITCH 09/15/19 Yes vancomycin Allergy Intermediate Rash 05/13/19 Yes Physical Exam: PE: Constitutional: Well developed, well nourished, no acute distress, non-toxic appearance, obese. [] HENT: Normocephalic, atraumatic, bilateral external ears normal, oropharynx moist, no oral exudates, nose normal. [] Eyes: PERRLA, EOMI, conjunctiva normal, no discharge. [] Neck: Normal range of motion, no stridor. [] Cardiovascular:Heart rate regular rhythm Lungs & Thorax: Bilateral breath sounds clear to auscultation. Respirations even and unlabored, no retractions, no respiratory distress [] Abdomen: Bowel sounds normal, soft, right upper quadrant and left upper quadrant TTP, no rebound tenderness, no guarding, no masses, no pulsatile masses. [] Skin: Warm, dry, no erythema, no rash. [] Back: No tenderness Extremities: No cyanosis, ROM intact, no edema. [] Neurologic: Alert and oriented X 3, no focal deficits noted. [] Psychologic: Affect normal, judgement normal, mood normal. [] Current Patient Data: Labs: Laboratory Tests Test 12/25/19 17:25 12/25/19 17:55 12/25/19 19:31 Urine Collection Type Unknown Urine Color Yellow Urine Clarity Clear Urine pH 6.5 (<5.0-8.0) Urine Specific [place] >=1.030 (1.000-1.030) Urine Protein Negative mg/dL (NEG-TRACE) Urine Glucose (UA) >=1000 mg/dL (NEG) Urine Ketones (Stick) Negative mg/dL (NEG) Urine Blood Negative (NEG) Urine Nitrite Negative (NEG) Urine Bilirubin Negative (NEG) Urine Urobilinogen Dipstick 0.2 mg/dL (0.2 mg/dL) Urine Leukocyte Esterase Negative (NEG) Urine RBC Occ /HPF (0-2) Urine WBC 1-4 /HPF (0-4) Urine Squamous Epithelial Cells Many /LPF Urine Bacteria Few /HPF (0-FEW) White Blood Count 9.3 x10^3/uL (4.0-11.0) Red Blood Count 4.37 x10^6/uL (3.50-5.40) Hemoglobin 11.8 g/dL (12.0-15.5) L Hematocrit 35.4 % (36.0-47.0) L Mean Corpuscular Volume 81 fL (79-100) Mean Corpuscular Hemoglobin 27 pg (25-35) Mean Corpuscular Hemoglobin Concent 33 g/dL (31-37) Red Cell Distribution Width 16.8 % (11.5-14.5) H Platelet Count 199 x10^3/uL (140-400) Neutrophils (%) (Auto) 71 % (31-73) Lymphocytes (%) (Auto) 21 % (24-48) L Monocytes (%) (Auto) 6 % (0-9) Eosinophils (%) (Auto) 1 % (0-3) Basophils (%) (Auto) 1 % (0-3) Neutrophils # (Auto) 6.6 x10^3/uL (1.8-7.7) Lymphocytes # (Auto) 2.0 x10^3/uL (1.0-4.8) Monocytes # (Auto) 0.6 x10^3/uL (0.0-1.1) Eosinophils # (Auto) 0.1 x10^3/uL (0.0-0.7) Basophils # (Auto) 0.1 x10^3/uL (0.0-0.2) Sodium Level 135 mmol/L (136-145) L Potassium Level 4.0 mmol/L (3.5-5.1) Chloride Level 98 mmol/L (98-107) Carbon Dioxide Level 31 mmol/L (21-32) Anion Gap 6 (6-14) Blood Urea Nitrogen 8 mg/dL (7-20) Creatinine 0.9 mg/dL (0.6-1.0) Estimated GFR (Cockcroft-Gault) 69.7 BUN/Creatinine Ratio 9 (6-20) Glucose Level 445 mg/dL (70-99) H Calcium Level 8.9 mg/dL (8.5-10.1) Total Bilirubin 0.4 mg/dL (0.2-1.0) Aspartate Amino Transferase (AST) 54 U/L (15-37) H Alanine Aminotransferase (ALT) 88 U/L (14-59) H Alkaline Phosphatase 123 U/L (46-116) H Total Protein 6.8 g/dL (6.4-8.2) Albumin 3.1 g/dL (3.4-5.0) L Albumin/Globulin Ratio 0.8 (1.0-1.7) L Lipase 118 U/L (73-393) Glucose (Fingerstick) 351 mg/dL (70-99) H Laboratory Tests 12/25/19 17:55 Laboratory Tests 12/25/19 17:55 Vital Signs: Vital Signs Date Time Temp Pulse Resp B/P (MAP) Pulse Ox O2 Delivery O2 Flow Rate FiO2 12/25/19 18:57 16 96 Room Air 12/25/19 17:22 98.6 106 125/61 (82) 98.6 EKG: EKG: [] Radiology/Procedures: Radiology/Procedures: [] Course & Med Decision Making: Course & Med Decision Making Pertinent Labs and Imaging studies reviewed. (See chart for details) Patient is a 39-year-old female who presented to the emergency room with multiple complaints. Her work-up included a CBC that revealed a hemoglobin of 1.8, hematocrit of 35.4, otherwise unremarkable; CMP revealed a sodium of 135, initial glucose of 445, AST of 54, ALT 88, alk phos 123, and normal lipase. Patient had a normal carbon dioxide and anion gap. UA was negative for ketones, greater than 1000 glucose with 1-4 WBCs and many squamous cells and likely contaminated. The patient was given a liter of normal saline, 6 units of regular insulin IV, 50 mcg of fentanyl, and 4 mg of Zofran. She reported feeling better after these medications and her blood sugar reduced to 351 an hour after the glucose. Her vital signs are stable throughout the visit. I encouraged the patient to remove the new insulin pump and resume using her old insulin pump. Advised her to follow-up with her primary care doctor in the next 1 to 2 days for repeat evaluation and to discuss further possible problems with the new insulin pump. Patient verbalized an understanding of home care, medications, follow-up, and return to ED instructions and was in agreement with the plan of care. [] Dragon Disclaimer: Dragon Disclaimer: This electronic medical record was generated, in whole or in part, using a voice recognition dictation system. Departure Departure Impression: Primary Impression: Hyperglycemia Additional Impressions: Nausea Abdominal pain Qualified Codes: R10.12 - Left upper quadrant pain Disposition: HOME, SELF-CARE Condition: STABLE Referrals: JANET FULLER (PCP) Patient Instructions: Abdominal Pain (Nonspecific), Hyperglycemia, [id number], Nausea, Adult, [id number] Additional Instructions: Fill prescriptions and use them as directed. Resume using her old insulin pump, discontinue use of the new pump until you know whether or not it is working. Follow-up with your primary care doctor in the next 1-2 days. Return to the emergency room if your symptoms worsen. Scripts Ondansetron Hcl (ONDANSETRON HCL) 4 Mg Tablet 1 TAB PO PRN Q6HRS PRN for NAUSEA/VOMITING for 3 Days, #10 TAB 0 Refills Prov: TEO LAM APRN 12/25/19 TEO LAM [employer] OPERATOR Dec 25, 2019 19:47
[2019-12-25 20:06] VITALS: BP 109/62
== END 2019-12-25 20:12 | disposition home or self-care (01) ==
LOC: ER 17:13
DX: E10.65 Type 1 diabetes mellitus with hyperglycemia (principal); R10.11 Right upper quadrant pain; R10.12 Left upper quadrant pain; R11.0 Nausea; R53.1 Weakness; F41.9 Anxiety disorder, unspecified; F32.9 Major depressive disorder, single episode, unspecified; K86.1 Other chronic pancreatitis; F17.200 Nicotine dependence, unspecified, uncomplicated; Z90.49 Acquired absence of other specified parts of digestive tract; Z90.710 Acquired absence of both cervix and uterus; Z98.890 Other specified postprocedural states; Z88.1 Allergy status to other antibiotic agents; Z91.013 Allergy to seafood
CPT/HCPCS: 36415; 80053; 81001; 82962; 83690; 85025; 96374; 96375; 99285; J1815; J2405; J3010; J7030

== ENCOUNTER 2020-01-09 01:59 | Emergency (ER) | payer BC ==
[~2020-01-09] VITALS: Ht 165.1 cm; Wt 86.4 kg
[~2020-01-09 01:59] MED LIST changes: +ONDA-84 PO
--- NOTE | 2020-01-09 02:26 | PHYS DOC ---
Past Medical History Past Medical History: Anxiety, Depression, Diabetes-Type I, Pancreatitis, Other Additional Past Medical Histor: NON-ALCHOL RELATED FATTY LIVER, HYDROADENITIS, HEARTBURN Past Surgical History: Cholecystectomy, Hysterectomy, Tonsillectomy Additional Past Surgical Histo: bilateral ankles, multiple abscess removal surgeries, breast reduction Smoking Status: Current Every Day Smoker Alcohol Use: None Drug Use: None General Adult EDM: Chief Complaint: HYPERGLYCEMIA HPI: HPI: Patient is a 39 year old female who presents with report of elevated blood sugar. Patient she states that her insulin pump stopped working a few days ago and has been using injectables since that time. She states that her blood sugar was over 500 at home. She did take 14 units of Humalog before coming in. Patient also complains of epigastric abdominal discomfort that she rates as moderate. She states that she has had some nausea and vomiting. She states that she is not able to keep anything down. [] Review of Systems: Review of Systems: Constitutional: Denies fever or chills. [] Respiratory: Denies cough or shortness of breath. [] Cardiovascular: Denies chest pain or edema. [] GI: Complains of upper abdominal pain with nausea and vomiting. Denies diarrhea. [] Integument: Denies rash. [] Neurologic: Denies headache, focal weakness or sensory changes. [] A full 10 point review of systems has been reviewed and is otherwise negative. Heart Score: Risk Factors: Risk Factors: DM, Current or recent (<one month) smoker, HTN, HLP, family history of CAD, obesity. Risk Scores: Score 0 - 3: 2.5% MACE over next 6 weeks - Discharge Home Score 4 - 6: 20.3% MACE over next 6 weeks - Admit for Clinical Observation Score 7 - 10: 72.7% MACE over next 6 weeks - Early Invasive Strategies Allergies: Allergies: Allergies Coded Allergies Type Severity Reaction Last Updated Verified levofloxacin Allergy Intermediate Rash 05/13/19 Yes shellfish derived Allergy Intermediate RASH/ITCH 09/15/19 Yes vancomycin Allergy Intermediate Rash 05/13/19 Yes Physical Exam: PE: Constitutional: Well developed, well nourished, no acute distress, non-toxic appearance. [] HENT: Normocephalic, atraumatic, bilateral external ears normal, oropharynx moist, no oral exudates, nose normal. [] Eyes: PERRLA, EOMI, conjunctiva normal, no discharge. [] Neck: Normal range of motion, no tenderness, supple. [] Cardiovascular: Regular rate and rhythm [] Lungs & Thorax: Bilateral breath sounds clear to auscultation [] Abdomen: Bowel sounds normal, soft, with mild epigastric tenderness. [] Skin: Warm, dry, no erythema, no rash. [] Extremities: No tenderness, no cyanosis, no clubbing, ROM intact, no edema. [] Neurologic: Alert and oriented X 3, no focal deficits noted. [] EKG: EKG: [] Radiology/Procedures: Radiology/Procedures: [] Course & Med Decision Making: Course & Med Decision Making Pertinent Labs and Imaging studies reviewed. (See chart for details) [] Dragon Disclaimer: Dragon Disclaimer: This electronic medical record was generated, in whole or in part, using a voice recognition dictation system. Departure Departure Impression: Primary Impression: Poorly controlled type 2 diabetes mellitus Additional Impression: Abdominal pain Qualified Codes: R10.13 - Epigastric pain Disposition: 01 HOME, SELF-CARE Condition: STABLE Referrals: JANET FULLER-Frederic (PCP) Patient Instructions: Abdominal Pain, Hyperglycemia Additional Instructions: Follow-up with your primary provider in the next 1 to 2 days. LLUVIA SAUNDERS Jr. DO January 09, 2020 02:26
[2020-01-09 02:43] LABS: CLARITY,URINE HAZY
[2020-01-09 02:44] LABS: SQUAMOUS EPITHELIAL CELL,UR FEW /LPF
[2020-01-09 02:45] LABS: BILIRUBIN,URINE NEGATIVE (NEG); COLOR,URINE PINK; NITRITE,URINE NEGATIVE (NEG); PROTEIN,URINE NEGATIVE (NEG-TRACE); RBC,URINE TNTC /HPF (0-2); UROBILINOGEN,URINE 0.2 mg/dL (0.2 mg/dL)
[2020-01-09 02:46] LABS: BACTERIA,URINE 0 /HPF (0-FEW); WBC,URINE OCC /HPF (0-4)
[2020-01-09] MEDS ORDERED: INSULIN REGULAR 100 UNIT/ML 3ML VIAL. IV ONE (03:00)
[2020-01-09] MEDS ORDERED: IV NORMAL SALINE 1000ML BAG 1,000 ML IV SCH (03:00)
[2020-01-09 03:11] LABS: BASO # 0.1 x10^3/uL (0.0-0.2); BASO % 1 % (0-3); EOS # 0.1 x10^3/uL (0.0-0.7); EOS % 2 % (0-3); HEMATOCRIT 36.8 % (36.0-47.0); HEMOGLOBIN 12.1 g/dL (12.0-15.5); LYMPH # 2.3 x10^3/uL (1.0-4.8); LYMPH % 30 % (24-48); MEAN CORPUSCULAR HEMOGLOBIN 26 pg (25-35); MEAN CORPUSCULAR HGB CONC 33 g/dL (31-37); MEAN CORPUSCULAR VOLUME 80 fL (79-100); MONO # 0.3 x10^3/uL (0.0-1.1); MONO % 4 % (0-9); NEUT # 4.7 x10^3/uL (1.8-7.7); NEUT % 63 % (31-73); PLATELET COUNT 220 x10^3/uL (140-400); RED BLOOD COUNT 4.59 x10^6/uL (3.50-5.40); RED CELL DISTRIBUTION WIDTH 17.5 % (11.5-14.5); WHITE BLOOD COUNT 7.5 x10^3/uL (4.0-11.0)
[2020-01-09] MEDS ORDERED: fentaNYL PF VIAL 100 MCG/2 ML VIAL IVP ONE (03:15)
[2020-01-09] MEDS ORDERED: ONDANSETRON PF 4 MG/2 ML VIAL. IVP ONE (03:15)
[2020-01-09 03:22] LABS: CALCIUM 9.2 mg/dL (8.5-10.1); CREATININE 0.9 mg/dL (0.6-1.0); GFR 69.7; POTASSIUM 3.7 mmol/L (3.5-5.1)
[2020-01-09 03:28] LABS: ALBUMIN 3.4 g/dL (3.4-5.0); ALBUMIN/GLOBULIN RATIO 0.9 (1.0-1.7); TOTAL BILIRUBIN 0.3 mg/dL (0.2-1.0); TOTAL PROTEIN 7.1 g/dL (6.4-8.2)
[2020-01-09 04:19] VITALS: BP 117/64
--- NOTE | 2020-01-09 08:32 | EKG ---
[facility] [address] [place] [address] Test Date: 2020-01-09 Test Time: 03:36:29 Pat Name: RON REYNA Department: Room: Gender: F Relationship Management Lead: : 1980 Requested By: LLUVIA SAUNDERS Order Number: [id number] Reading MD: Ankit Pardo Measurements Intervals [place] Rate: 84 P: NV: QRS: -14 QRSD: 212 T: 23 QT: 442 QTc: 526 Interpretive Statements SINUS RHYTHM NONSPECIFIC ST-T WAVE CHANGES. Electronically Signed On 01-09-2020 11:03:27 CDT by Ankit Pardo
== END 2020-01-09 04:21 | disposition home or self-care (01) ==
LOC: ER 01:59
DX: E11.65 Type 2 diabetes mellitus with hyperglycemia (principal); R10.13 Epigastric pain; R11.2 Nausea with vomiting, unspecified; F41.9 Anxiety disorder, unspecified; F32.9 Major depressive disorder, single episode, unspecified; F17.200 Nicotine dependence, unspecified, uncomplicated; Z90.49 Acquired absence of other specified parts of digestive tract; Z90.710 Acquired absence of both cervix and uterus; Z98.890 Other specified postprocedural states; Z88.1 Allergy status to other antibiotic agents; Z91.013 Allergy to seafood
CPT/HCPCS: 36415; 80053; 81001; 81025; 82010; 82962; 83690; 85025; 93005; 96361; 96374; 96375; 99284; J1815; J2405; J3010; J7030

== ENCOUNTER → 2020-01-25 | Outpatient (CLI) | payer BC ==
[2020-01-09 04:19] VITALS: BP 117/64
[~2020-01-25] MED LIST changes: +HYOS0.1264 PO
--- NOTE | 2020-01-26 11:30 | SLEEP ---
DATE OF STUDY: 01/25/2020 REFERRED BY: Blanca Kilgore PA-C. The patient is a 39-year-old who weighs 190 pounds with a BMI of 32. The patient's Fraziers Bottom score of 17. The patient underwent a split night study performed at [facility]. During the night study, the patient spent 440 minutes in bed and slept for 390 minutes with a sleep efficiency of 89%. Sleep latency was 30 minutes with a REM latency of 251 minutes. Sleep architecture showed normal stage 1 and stage 2 sleep, increased slow wave and reduced REM sleep, which was 12% of the total sleep time. During the initial diagnostic portion of the study, the patient slept for 209 minutes. During that time, the patient had 27 obstructive apneas, 73 hypopneas, no mixed or central apneas. The patient's AHI was 29 per hour. Supine AHI of 47 per hour. REM sleep was not seen during the diagnostic portion. EKG monitoring revealed normal sinus rhythm. Average heart rate was 87 beats per minute, no sustained arrhythmias observed. Nocturnal oximetry study revealed a mean oxygen saturation of 90% with the lowest was 73%, 94% of time oxygen saturation remained between 80% and 89%. No PLMs seen. The patient met the criteria for CPAP initiation. It was started at 5 cm water and titrated up to 11 cm water. At the final pressure, the patient slept for 62 minutes. The patient had supine as well as REM sleep. The patient's AHI was reduced to 1 per hour and oxygen saturations remained above 88% with one spot desaturation of 86%. The patient used nasal pillows. IMPRESSION: 1. Zlpaxkze-wo-mtlmtk obstructive sleep apnea. Absence of REM sleep during the diagnostic portion can underestimate the severity of sleep apnea. The patient's AHI was 29 per hour with a supine AHI of 47 per hour. 2. Nocturnal hypoxia secondary to obstructive sleep apnea, but resolved with CPAP. 3. No clinically significant periodic limb movements. RECOMMENDATIONS: 1. CPAP at 11 cm water completely eliminated the patient's sleep apnea and should be used on a nightly basis. 2. Follow up in 4-6 weeks to assess compliance with CPAP and to document clinical improvement. 3. Weight loss is strongly advised. 4. 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 5. Cautioned regarding driving until symptoms of sleep apnea resolve with the use of CPAP. DENISSE NAZARIO MD DR: CAROL/janett JOB#: [id number] / [id number] BLANCA Bonilla PA-C
== END | disposition home or self-care (01) ==
LOC: SLPLAB 19:04
PROVIDERS: ATTEND Internal Medicine Critical Care Medicine
DX: G47.33 Obstructive sleep apnea (adult) (pediatric) (principal)
CPT/HCPCS: 95810; 95811

== ENCOUNTER 2020-01-31 00:24 | Emergency (ER) | payer BC ==
[~2020-01-31] VITALS: Ht 162.6 cm; Wt 90.9 kg
[~2020-01-31 00:24] MED LIST changes: -HYOS0.1264 PO
[2020-01-31] MEDS ORDERED: IV NORMAL SALINE 1000ML BAG 1,000 ML IV SCH (01:22)
[2020-01-31] MEDS ORDERED: ONDANSETRON PF 4 MG/2 ML VIAL. IVP ONE (01:30)
[2020-01-31 01:38] LABS: BILIRUBIN,URINE SMALL (NEG); CLARITY,URINE CLEAR; COLOR,URINE YELLOW; NITRITE,URINE NEGATIVE (NEG); PROTEIN,URINE NEGATIVE (NEG-TRACE); UROBILINOGEN,URINE 0.2 mg/dL (0.2 mg/dL)
[2020-01-31 01:38] LABS: BASO # 0.1 x10^3/uL (0.0-0.2); BASO % 1 % (0-3); EOS # 0.1 x10^3/uL (0.0-0.7); EOS % 1 % (0-3); HEMOGLOBIN 12.5 g/dL (12.0-15.5); LYMPH # 2.4 x10^3/uL (1.0-4.8); LYMPH % 25 % (24-48); MEAN CORPUSCULAR HEMOGLOBIN 26 pg (25-35); MEAN CORPUSCULAR HGB CONC 33 g/dL (31-37); MEAN CORPUSCULAR VOLUME 79 fL (79-100); MONO # 0.7 x10^3/uL (0.0-1.1); MONO % 7 % (0-9); NEUT # 6.4 x10^3/uL (1.8-7.7); NEUT % 66 % (31-73); PLATELET COUNT 248 x10^3/uL (140-400); RED BLOOD COUNT 4.81 x10^6/uL (3.50-5.40); RED CELL DISTRIBUTION WIDTH 17.8 % (11.5-14.5); WHITE BLOOD COUNT 9.7 x10^3/uL (4.0-11.0)
[2020-01-31] MEDS: fentaNYL PF VIAL 100 MCG/2 ML VIAL IV PRN ×3 (01:39→03:53)
[2020-01-31 01:45] LABS: CALCIUM 8.5 mg/dL (8.5-10.1); CREATININE 0.6 mg/dL (0.6-1.0); GFR 111.3; POTASSIUM 3.9 mmol/L (3.5-5.1)
[2020-01-31 01:51] LABS: ALBUMIN 3.3 g/dL (3.4-5.0); TOTAL BILIRUBIN 0.5 mg/dL (0.2-1.0); TOTAL PROTEIN 6.5 g/dL (6.4-8.2)
[2020-01-31 01:57] LABS: BACTERIA,URINE 0 /HPF (0-FEW); RBC,URINE OCC /HPF (0-2); SQUAMOUS EPITHELIAL CELL,UR MOD /LPF
--- NOTE | 2020-01-31 03:01 | RAD ---
EXAM: CT Abdomen and Pelvis without IV contrast CLINICAL HISTORY: abd pain COMPARISON: 03/29/2019, 12/29/2018 TECHNIQUE: Helical CT of the abdomen and pelvis was performed without the administration of IV contrast. Axial, coronal and sagittal reformatted images were generated. ---PQRS compliance statement - One or more of the following individualized dose reduction techniques were utilized for this study: 1. Automated exposure control 2. Adjustment of the mA and/or kV according to patient size 3. Use of iterative reconstruction technique--- FINDINGS: Lack of intravenous contrast limits evaluation of solid organs, vasculature, and lymph nodes. Lower chest: Lung bases are clear. Abdomen and pelvis: Liver and biliary system: No focal liver lesion. There is been a cholecystectomy. No biliary ductal dilatation. Spleen: Unremarkable Pancreas: Unremarkable Adrenal glands: Left adrenal myelolipoma is seen. Right adrenal gland is unremarkable. Kidneys: No focal renal lesion. No hydronephrosis. No hydroureter. No renal tract calculus. Lymph nodes/retroperitoneum: No abdominal or pelvic lymphadenopathy. No abdominal or pelvic lymphadenopathy. Vessels: Aorta is grossly normal in caliber. Bowel/Peritoneal cavity: Moderate colonic stool content. No small or large bowel dilatation. No bowel obstruction. Appendix is normal. No abdominal or pelvic ascites. There has been a hysterectomy. Abdominal wall: Changes of ventral abdominal wall mesh hernia repair changes are seen. Bladder: Unremarkable Bones: No aggressive osseous lesion is seen. Degenerative changes of the spine are noted. IMPRESSION: 1. No bowel obstruction. 2. Left adrenal myelolipoma is stable. 3. Changes of cholecystectomy and hysterectomy, stable. 4. Appendix is normal. 5. No renal tract calculus. Electronically signed by: Sammy Barrientos MD (01/31/2020 2:57 AM) [id number]
[2020-01-31] MEDS ORDERED: ONDA4TAB12 PO (03:11)
[2020-01-31] MEDS ORDERED: HYDR-3164 PO (03:11)
--- NOTE | 2020-01-31 03:16 | PHYS DOC ---
Past Medical History Past Medical History: Diabetes-Type I Additional Past Medical Histor: PHILLIPS Past Surgical History: Hysterectomy Additional Past Surgical Histo: UMBILICAL HERNIA Smoking Status: Current Every Day Smoker Alcohol Use: None Drug Use: None General Adult EDM: Chief Complaint: ABDOMINAL PAIN HPI: HPI: Patient is a 39 year old female who presents with complaint of pain in her bilateral flank region with nausea and vomiting that started earlier today. Patient states that she has not been able to keep anything down due to vomiting. Patient is a diabetic and she indicates that her blood sugars have been stable. Patient denies any diarrhea. She rates pain at an 8 out of 10. She states that nothing is improving her symptoms. [] Review of Systems: Review of Systems: Constitutional: Denies fever or chills. [] Respiratory: Denies cough or shortness of breath. [] Cardiovascular: Denies chest pain or edema. [] GI: Complains of bilateral flank/abdominal pain with nausea and vomiting. Denies diarrhea. [] Neurologic: Denies headache, focal weakness or sensory changes. [] A full 10 point review of systems has been reviewed and is otherwise negative. Heart Score: Risk Factors: Risk Factors: DM, Current or recent (<one month) smoker, HTN, HLP, family h istory of CAD, obesity. Risk Scores: Score 0 - 3: 2.5% MACE over next 6 weeks - Discharge Home Score 4 - 6: 20.3% MACE over next 6 weeks - Admit for Clinical Observation Score 7 - 10: 72.7% MACE over next 6 weeks - Early Invasive Strategies Current Medications: Current Medications Medications (Trade) Dose Ordered Sig/[facility] Start Time Stop Time Status Last Admin Dose Admin Fentanyl Citrate (Fentanyl 2ml Vial) 25 mcg PRN Q15MIN PRN 01/31/20 01:30 02/01/20 01:29 01/31/20 02:25 25 MCG Ondansetron HCl (Zofran) 4 mg 1X ONCE 01/31/20 01:30 01/31/20 01:44 DC 01/31/20 01:39 4 MG Sodium Chloride 1,000 ml @ 1,000 mls/hr Q1H 01/31/20 01:22 01/31/20 02:21 DC 01/31/20 01:38 1,000 MLS/HR Allergies: Allergies: Allergies Coded Allergies Type Severity Reaction Last Updated Verified ketorolac Allergy Severe rash 01/31/20 Yes levofloxacin Allergy Intermediate Rash 05/13/19 Yes shellfish derived Allergy Intermediate RASH/ITCH 09/15/19 Yes vancomycin Allergy Intermediate Rash 05/13/19 Yes Physical Exam: PE: Constitutional: Well developed, well nourished, no acute distress, non-toxic ap pearance. [] HENT: Normocephalic, atraumatic, bilateral external ears normal, oropharynx moist, no oral exudates, nose normal. [] Eyes: PERRLA, EOMI, conjunctiva normal, no discharge. [] Neck: Normal range of motion, no tenderness, supple. [] Cardiovascular: Regular rate and rhythm [] Lungs & Thorax: Bilateral breath sounds clear to auscultation [] Abdomen: Bowel sounds normal, soft, with diffuse tenderness. [] Skin: Warm, dry, no erythema, no rash. [] Extremities: No tenderness, no cyanosis, no clubbing, ROM intact, no edema. [] Neurologic: Alert and oriented X 3, no focal deficits noted. [] Current Patient Data: Labs: Laboratory Tests Test 01/31/20 00:34 01/31/20 00:43 01/31/20 01:00 Urine Collection Type Unknown Urine Color Yellow Urine Clarity Clear Urine pH 5.0 (<5.0-8.0) Urine Specific [place] 1.020 (1.000-1.030) Urine Protein Negative mg/dL (NEG-TRACE) Urine Glucose (UA) Negative mg/dL (NEG) Urine Ketones (Stick) Negative mg/dL (NEG) Urine Blood Negative (NEG) Urine Nitrite Negative (NEG) Urine Bilirubin Small (NEG) Urine Urobilinogen Dipstick 0.2 mg/dL (0.2 mg/dL) Urine Leukocyte Esterase Trace (NEG) Urine RBC Occ /HPF (0-2) Urine WBC 5-10 /HPF (0-4) Urine Squamous Epithelial Cells Mod /LPF Urine Bacteria 0 /HPF (0-FEW) Urine Mucus Marked /LPF POC Urine HCG, Qualitative Hcg negative (Negative) White Blood Count 9.7 x10^3/uL (4.0-11.0) Red Blood Count 4.81 x10^6/uL (3.50-5.40) Hemoglobin 12.5 g/dL (12.0-15.5) Hematocrit 38.0 % (36.0-47.0) Mean Corpuscular Volume 79 fL (79-100) Mean Corpuscular Hemoglobin 26 pg (25-35) Mean Corpuscular Hemoglobin Concent 33 g/dL (31-37) Red Cell Distribution Width 17.8 % (11.5-14.5) H Platelet Count 248 x10^3/uL (140-400) Neutrophils (%) (Auto) 66 % (31-73) Lymphocytes (%) (Auto) 25 % (24-48) Monocytes (%) (Auto) 7 % (0-9) Eosinophils (%) (Auto) 1 % (0-3) Basophils (%) (Auto) 1 % (0-3) Neutrophils # (Auto) 6.4 x10^3/uL (1.8-7.7) Lymphocytes # (Auto) 2.4 x10^3/uL (1.0-4.8) Monocytes # (Auto) 0.7 x10^3/uL (0.0-1.1) Eosinophils # (Auto) 0.1 x10^3/uL (0.0-0.7) Basophils # (Auto) 0.1 x10^3/uL (0.0-0.2) Sodium Level 146 mmol/L (136-145) H Potassium Level 3.9 mmol/L (3.5-5.1) Chloride Level 108 mmol/L (98-107) H Carbon Dioxide Level 30 mmol/L (21-32) Anion Gap 8 (6-14) Blood Urea Nitrogen 8 mg/dL (7-20) Creatinine 0.6 mg/dL (0.6-1.0) Estimated GFR (Cockcroft-Gault) 111.3 BUN/Creatinine Ratio 13 (6-20) Glucose Level 114 mg/dL (70-99) H Calcium Level 8.5 mg/dL (8.5-10.1) Total Bilirubin 0.5 mg/dL (0.2-1.0) Aspartate Amino Transferase (AST) 70 U/L (15-37) H Alanine Aminotransferase (ALT) 80 U/L (14-59) H Alkaline Phosphatase 101 U/L (46-116) Total Protein 6.5 g/dL (6.4-8.2) Albumin 3.3 g/dL (3.4-5.0) L Albumin/Globulin Ratio 1.0 (1.0-1.7) Lipase 105 U/L (73-393) Laboratory Tests 01/31/20 01:00 Laboratory Tests 01/31/20 01:00 Vital Signs: Vital Signs Date Time Temp Pulse Resp B/P (MAP) Pulse Ox O2 Delivery O2 Flow Rate FiO2 01/31/20 02:25 19 94 Room Air EKG: EKG: [] Radiology/Procedures: Radiology/Procedures: [] Impression: PROCEDURE: CT ABDOMEN PELVIS WO CONTRAST EXAM: CT Abdomen and Pelvis without IV contrast CLINICAL HISTORY: abd pain COMPARISON: 03/29/2019, 12/29/2018 TECHNIQUE: Helical CT of the abdomen and pelvis was performed without the administration of IV contrast. Axial, coronal and sagittal reformatted images were generated. ---PQRS compliance statement - One or more of the following individualized dose reduction techniques were utilized for this study: 1. Automated exposure control 2. Adjustment of the mA and/or kV according to patient size 3. Use of iterative reconstruction technique--- FINDINGS: Lack of intravenous contrast limits evaluation of solid organs, vasculature, and lymph nodes. Lower chest: Lung bases are clear. Abdomen and pelvis: Liver and biliary system: No focal liver lesion. There is been a cholecystectomy. No biliary ductal dilatation. Spleen: Unremarkable Pancreas: Unremarkable Adrenal glands: Left adrenal myelolipoma is seen. Right adrenal gland is unremarkable. Kidneys: No focal renal lesion. No hydronephrosis. No hydroureter. No renal tract calculus. Lymph nodes/retroperitoneum: No abdominal or pelvic lymphadenopathy. No abdominal or pelvic lymphadenopathy. Vessels: Aorta is grossly normal in caliber. Bowel/Peritoneal cavity: Moderate colonic stool content. No small or large bowel dilatation. No bowel obstruction. Appendix is normal. No abdominal or pelvic ascites. There has been a hysterectomy. Abdominal wall: Changes of ventral abdominal wall mesh hernia repair changes are seen. Bladder: Unremarkable Bones: No aggressive osseous lesion is seen. Degenerative changes of the spine are noted. IMPRESSION: 1. No bowel obstruction. 2. Left adrenal myelolipoma is stable. 3. Changes of cholecystectomy and hysterectomy, stable. 4. Appendix is normal. 5. No renal tract calculus. Electronically signed by: Sammy Tompkins MD (01/31/2020 2:57 AM) [id number] DICTATED and SIGNED BY: SAMMY TOMPKINS MD DATE: 01/31/20 0257 Course & Med Decision Making: Course & Med Decision Making Pertinent Labs and Imaging studies reviewed. (See chart for details) [] Amalia Disclaimer: Amalia Disclaimer: This electronic medical record was generated, in whole or in part, using a voice recognition dictation system. Departure Departure Impression: Primary Impression: Abdominal pain Qualified Codes: R10.9 - Unspecified abdominal pain Disposition: HOME, SELF-CARE Condition: STABLE Referrals: JNAET FULLER-Frederic (PCP) Patient Instructions: Abdominal Pain Scripts Ondansetron (ONDANSETRON ODT) 4 Mg Tab.rapdis 1 TAB PO PRN Q6-8HRS PRN for NAUSEA, #15 TAB Prov: LLUVIA SAUNDERS Jr. DO 01/31/20 Hydrocodone/Apap 5-325 (NORCO 5-325 TABLET) 1 Each Tablet 1-2 EACH PO PRN Q6HRS PRN for PAIN, #15 as needed for pain Prov: LLUVIA SAUNDERS Jr. DO 01/31/20 LLUVIA SAUNDERS Jr. DO Jan 31, 2020 03:16
[2020-01-31 03:45] VITALS: BP 99/62
== END 2020-01-31 04:00 | disposition home or self-care (01) ==
LOC: ER 00:24
DX: R10.84 Generalized abdominal pain (principal); E10.9 Type 1 diabetes mellitus without complications; F17.200 Nicotine dependence, unspecified, uncomplicated; Z90.710 Acquired absence of both cervix and uterus; Z98.890 Other specified postprocedural states; Z88.1 Allergy status to other antibiotic agents; Z88.6 Allergy status to analgesic agent; Z91.013 Allergy to seafood
CPT/HCPCS: 36415; 74176; 80053; 81001; 81025; 83690; 85025; 87086; 96361; 96374; 96375; 96376; 99285; J2405; J3010; J7030

== ENCOUNTER 2020-01-31 22:35 | Emergency (ER) | payer BC ==
[~2020-01-31] VITALS: Ht 162.6 cm; Wt 91.0 kg
[2020-01-31 22:37] VITALS: BP 144/76
--- NOTE | 2020-01-31 22:57 | PHYS DOC ---
Past Medical History Past Medical History: Diabetes-Type I Additional Past Medical Histor: PHILLIPS Past Surgical History: Hysterectomy Additional Past Surgical Histo: UMBILICAL HERNIA Smoking Status: Current Every Day Smoker Alcohol Use: None Drug Use: None General Adult EDM: Chief Complaint: ABDOMINAL PAIN HPI: HPI: Patient is a 39 year old female who presents with complaint of continued abdo luke pain. Patient states that is getting worse since last night. She does offer up the history that a friend of hers had brought home some wild mushrooms and states that she thought that they were good. She wonders if she could have mushroom poisoning. Patient rates pain at a 9 out of 10. [] Review of Systems: Review of Systems: Constitutional: Denies fever or chills. [] Respiratory: Denies cough or shortness of breath. [] Cardiovascular: Denies chest pain or edema. [] GI: Complains of abdominal pain with nausea and vomiting. [] Integument: Denies rash. [] Neurologic: Denies headache, focal weakness or sensory changes. [] Heart Score: Risk Factors: Risk Factors: DM, Current or recent (<one month) smoker, HTN, HLP, family history of CAD, obesity. Risk Scores: Score 0 - 3: 2.5% MACE over next 6 weeks - Discharge Home Score 4 - 6: 20.3% MACE over next 6 weeks - Admit for Clinical Observation Score 7 - 10: 72.7% MACE over next 6 weeks - Early Invasive Strategies Allergies: Allergies: Allergies Coded Allergies Type Severity Reaction Last Updated Verified ketorolac Allergy Severe rash 01/31/20 Yes levofloxacin Allergy Intermediate Rash 05/13/19 Yes shellfish derived Allergy Intermediate RASH/ITCH 09/15/19 Yes vancomycin Allergy Intermediate Rash 05/13/19 Yes Physical Exam: PE: Constitutional: Well developed, well nourished, no acute distress, non-toxic appearance. Patient's report of severity of pain 4 out of proportion to physical findings. [] HENT: Normocephalic, atraumatic, bilateral external ears normal, oropharynx moist, no oral exudates, nose normal. [] Eyes: PERRLA, EOMI, conjunctiva normal, no discharge. [] Neck: Normal range of motion, no tenderness, supple, no stridor. [] Cardiovascular: Regular rate and rhythm [] Lungs & Thorax: Bilateral breath sounds clear to auscultation [] Abdomen: Bowel sounds normal, soft, with diffuse reported tenderness. [] Skin: Warm, dry, no erythema, no rash. [] Extremities: No tenderness, no cyanosis, no clubbing, ROM intact. [] Neurologic: Alert and oriented X 3, no focal deficits noted. [] EKG: EKG: [] Radiology/Procedures: Radiology/Procedures: [] Course & Med Decision Making: Course & Med Decision Making Pertinent Labs and Imaging studies reviewed. (See chart for details) [] Dragon Disclaimer: Dragon Disclaimer: This electronic medical record was generated, in whole or in part, using a voice recognition dictation system. Departure Departure Impression: Primary Impression: Abdominal pain Qualified Codes: R10.84 - Generalized abdominal pain Disposition: 01 HOME, SELF-CARE Condition: STABLE Referrals: JANET FULLER (PCP) Patient Instructions: Abdominal Pain LLUVIA SAUNDERS Jr. DO Jan 31, 2020 22:57
[2020-01-31] MEDS ORDERED: METOCLOPRAMIDE HCL 10 MG/2 ML VIAL. IM ONE (23:00)
[2020-01-31] MEDS ORDERED: DICYCLOMINE 20 MG/2 ML VIAL. IM ONE (23:00)
[2020-01-31 23:09] LABS: BASO # 0.1 x10^3/uL (0.0-0.2); BASO % 1 % (0-3); EOS # 0.1 x10^3/uL (0.0-0.7); EOS % 1 % (0-3); HEMATOCRIT 35.8 % (36.0-47.0); HEMOGLOBIN 12.1 g/dL (12.0-15.5); LYMPH # 2.6 x10^3/uL (1.0-4.8); LYMPH % 25 % (24-48); MEAN CORPUSCULAR HEMOGLOBIN 26 pg (25-35); MEAN CORPUSCULAR HGB CONC 34 g/dL (31-37); MEAN CORPUSCULAR VOLUME 78 fL (79-100); MONO # 0.7 x10^3/uL (0.0-1.1); MONO % 7 % (0-9); NEUT # 6.9 x10^3/uL (1.8-7.7); NEUT % 66 % (31-73); PLATELET COUNT 254 x10^3/uL (140-400); RED BLOOD COUNT 4.57 x10^6/uL (3.50-5.40); RED CELL DISTRIBUTION WIDTH 17.8 % (11.5-14.5); WHITE BLOOD COUNT 10.4 x10^3/uL (4.0-11.0)
[2020-01-31 23:18] LABS: CALCIUM 8.8 mg/dL (8.5-10.1); CREATININE 0.9 mg/dL (0.6-1.0); GFR 69.7; POTASSIUM 3.3 mmol/L (3.5-5.1)
[2020-01-31 23:23] LABS: ALBUMIN 3.3 g/dL (3.4-5.0); ALBUMIN/GLOBULIN RATIO 0.9 (1.0-1.7); TOTAL BILIRUBIN 0.3 mg/dL (0.2-1.0); TOTAL PROTEIN 6.9 g/dL (6.4-8.2)
[2020-01-31] MEDS ORDERED: POTASSIUM CHLORIDE 20 MEQ TABLET.ER. PO ONE (23:45)
== END 2020-01-31 23:50 | disposition home or self-care (01) ==
LOC: ER 22:35
DX: R10.84 Generalized abdominal pain (principal); R11.2 Nausea with vomiting, unspecified; E10.9 Type 1 diabetes mellitus without complications; F17.200 Nicotine dependence, unspecified, uncomplicated; Z90.710 Acquired absence of both cervix and uterus
CPT/HCPCS: 36415; 80053; 85025; 96372; 99284; J0500; J2765

== ENCOUNTER 2020-02-06 23:04 | Emergency (ER) | payer BC ==
[~2020-02-06] VITALS: Ht 165.1 cm; Wt 86.0 kg
[2020-02-06 23:28] VITALS: BP 144/76
[2020-02-07] MEDS ORDERED: IV NORMAL SALINE 1000ML BAG 1,000 ML IV SCH (00:47)
[2020-02-07 01:24] LABS: BILIRUBIN,URINE NEGATIVE (NEG); CLARITY,URINE CLEAR; COLOR,URINE YELLOW; NITRITE,URINE NEGATIVE (NEG); PROTEIN,URINE NEGATIVE (NEG-TRACE)
[2020-02-07 01:36] LABS: BACTERIA,URINE 0 /HPF (0-FEW); RBC,URINE 0 /HPF (0-2); SQUAMOUS EPITHELIAL CELL,UR FEW /LPF
--- NOTE | 2020-02-07 01:48 | PHYS DOC ---
Past Medical History Past Medical History: Diabetes-Type I Additional Past Medical Histor: PHILLIPS Past Surgical History: Hysterectomy Additional Past Surgical Histo: UMBILICAL HERNIA Smoking Status: Current Every Day Smoker Alcohol Use: None Drug Use: None General Adult EDM: Chief Complaint: BLOOD SUGAR PROBLEM HPI: HPI: Patient is a 39 year old female who presents with complaint that her blood sugars have been very erratic throughout the day. Patient just recently got a new insulin pump and she states that today her blood sugar was in the 50s when she woke up. She states that she ate some breakfast and blood sugar had, but then later it had dropped below 60 again. She states that this happened a few times throughout the day and so she decided she should come in and be evaluated. Patient denies any chest pain, shortness of breath, abdominal pain, nausea or vomiting. [] Review of Systems: Review of Systems: Constitutional: Denies fever or chills. [] Respiratory: Denies cough or shortness of breath. [] Cardiovascular: Denies chest pain or edema. [] GI: Denies abdominal pain, nausea, vomiting or diarrhea. [] Neurologic: Denies headache, focal weakness or sensory changes. [] A full 10 point review of systems has been reviewed and is otherwise negative. Heart Score: Risk Factors: Risk Factors: DM, Current or recent (<one month) smoker, HTN, HLP, family history of CAD, obesity. Risk Scores: Score 0 - 3: 2.5% MACE over next 6 weeks - Discharge Home Score 4 - 6: 20.3% MACE over next 6 weeks - Admit for Clinical Observation Score 7 - 10: 72.7% MACE over next 6 weeks - Early Invasive Strategies Current Medications: Current Medications Medications (Trade) Dose Ordered Sig/[facility] Start Time Stop Time Status Last Admin Dose Admin Sodium Chloride 1,000 ml @ 1,000 mls/hr Q1H 02/07/20 00:47 02/07/20 01:46 Allergies: Allergies: Allergies Coded Allergies Type Severity Reaction Last Updated Verified ketorolac Allergy Severe rash 01/31/20 Yes levofloxacin Allergy Intermediate Rash 05/13/19 Yes shellfish derived Allergy Intermediate RASH/ITCH 09/15/19 Yes vancomycin Allergy Intermediate Rash 05/13/19 Yes Physical Exam: PE: Constitutional: Well developed, well nourished, no acute distress, non-toxic appearance. [] HENT: Normocephalic, atraumatic, bilateral external ears normal, oropharynx moist, no oral exudates, nose normal. [] Eyes: PERRLA, EOMI, conjunctiva normal, no discharge. [] Neck: Normal range of motion, no tenderness, supple, no stridor. [] Cardiovascular: Regular rate and rhythm [] Lungs & Thorax: Bilateral breath sounds clear to auscultation [] Abdomen: Bowel sounds normal, soft, no tenderness. [] Skin: Warm, dry, no erythema, no rash. [] Extremities: No tenderness, no cyanosis, no clubbing, ROM intact. [] Neurologic: Alert and oriented X 3, no focal deficits noted. [] Current Patient Data: Labs: Laboratory Tests Test 02/07/20 01:18 Urine Collection Type Unknown Urine Color Yellow Urine Clarity Clear Urine pH 7.0 (<5.0-8.0) Urine Specific [place] 1.015 (1.000-1.030) Urine Protein Negative mg/dL (NEG-TRACE) Urine Glucose (UA) Negative mg/dL (NEG) Urine Ketones (Stick) Negative mg/dL (NEG) Urine Blood Negative (NEG) Urine Nitrite Negative (NEG) Urine Bilirubin Negative (NEG) Urine Urobilinogen Dipstick 1.0 mg/dL (0.2 mg/dL) Urine Leukocyte Esterase Trace (NEG) Urine RBC 0 /HPF (0-2) Urine WBC 1-4 /HPF (0-4) Urine Squamous Epithelial Cells Few /LPF Urine Bacteria 0 /HPF (0-FEW) Urine Mucus Slight /LPF Vital Signs: Vital Signs Date Time Temp Pulse Resp B/P (MAP) Pulse Ox O2 Delivery O2 Flow Rate FiO2 02/06/20 23:28 98.1 62 16 144/76 (98) 98 Room Air 98.1 EKG: EKG: [] Radiology/Procedures: Radiology/Procedures: [] Course & Med Decision Making: Course & Med Decision Making Pertinent Labs and Imaging studies reviewed. (See chart for details) [] Dragon Disclaimer: Dragon Disclaimer: This electronic medical record was generated, in whole or in part, using a voice recognition dictation system. Departure Departure Impression: Primary Impression: Poorly controlled type 2 diabetes mellitus Disposition: 07 AGAINST MEDICAL ADVICE (Patient eloped from the emergency room after seen by physician.) Condition: GOOD Referrals: JANET FULLER-C (PCP) Justicifation of Admission Dx: Justifications for Admission: Justification of Admission Dx: N/A LLUVIA SAUNDERS Jr. DO Feb 07, 2020 01:47
== END 2020-02-07 00:57 | disposition left against medical advice (07) ==
LOC: ER 23:04
DX: E11.9 Type 2 diabetes mellitus without complications (principal); Z90.710 Acquired absence of both cervix and uterus; F17.200 Nicotine dependence, unspecified, uncomplicated; Z88.1 Allergy status to other antibiotic agents; Z91.013 Allergy to seafood
CPT/HCPCS: 81001; 87086; 99283

== ENCOUNTER → 2020-02-07 | Outpatient (CLI) | payer BC ==
[2020-01-31 22:37] VITALS: BP 144/76
[~2020-02-07] MED LIST changes: +IOHEXOL 300 MG/ML 100ML VIAL. IV ONE
[2020-02-07 11:20] LABS: CREATININE 0.8 mg/dL (0.6-1.0); GFR 79.9
--- NOTE | 2020-02-07 13:02 | RAD ---
CT CHEST W/CONTRAST Indication: Adenopathy Technique: Postcontrast CT imaging was performed of the chest, multiplanar reconstruction images submitted. One or more of the following individualized dose reduction techniques were utilized for this examination: 1. Automated exposure control 2. Adjustment of the mA and/or kV according to patient size 3. Use of iterative reconstruction technique. Comparison: 10/05/2019 Findings: There is some motion. No significantly enlarged nodes are identified of the chest. Previously seen right hilar node measures about 0.6 cm short axis dimension previously about 1 cm in similar plane. There is no infiltrate, pleural or pericardial fluid, or pneumothorax. Major airways are patent. There has been cholecystectomy. Thoracic aortic caliber is within normal limits, no intraluminal flap. There is thoracic levoscoliosis. There is again left adrenal myelolipoma. IMPRESSION: 1. No significantly enlarged nodes are identified of the chest, previously seen right hilar node smaller than previously. Electronically signed by: Bry Rooney MD (02/07/2020 12:59 PM) [id number]
== END ==
LOC: CT 12:12
PROVIDERS: ATTEND Internal Medicine Pulmonary Disease
DX: D17.71 Benign lipomatous neoplasm of kidney (principal); R59.9 Enlarged lymph nodes, unspecified; Z90.49 Acquired absence of other specified parts of digestive tract
CPT/HCPCS: 36415; 71260; 82565; 84520; Q9967

== ENCOUNTER 2020-02-18 16:08 | Emergency (ER) | payer BC ==
[~2020-02-18] VITALS: Ht 165.1 cm; Wt 86.0 kg
[~2020-02-18 16:08] MED LIST changes: -IOHEXOL 300 MG/ML 100ML VIAL. IV ONE
[2020-02-18 16:38] LABS: BILIRUBIN,URINE NEGATIVE (NEG); CLARITY,URINE CLEAR; COLOR,URINE YELLOW; NITRITE,URINE NEGATIVE (NEG); PROTEIN,URINE NEGATIVE (NEG-TRACE); UROBILINOGEN,URINE 0.2 mg/dL (0.2 mg/dL)
[2020-02-18 16:45] LABS: SQUAMOUS EPITHELIAL CELL,UR FEW /LPF
[2020-02-18 16:46] LABS: BACTERIA,URINE 0 /HPF (0-FEW); WBC,URINE OCC /HPF (0-4)
[2020-02-18 17:04] LABS: BASO # 0.1 x10^3/uL (0.0-0.2); BASO % 1 % (0-3); EOS # 0.1 x10^3/uL (0.0-0.7); EOS % 1 % (0-3); HEMOGLOBIN 11.8 g/dL (12.0-15.5); LYMPH # 1.9 x10^3/uL (1.0-4.8); LYMPH % 21 % (24-48); MEAN CORPUSCULAR HEMOGLOBIN 27 pg (25-35); MEAN CORPUSCULAR HGB CONC 34 g/dL (31-37); MEAN CORPUSCULAR VOLUME 80 fL (79-100); MONO # 0.6 x10^3/uL (0.0-1.1); MONO % 7 % (0-9); NEUT # 6.4 x10^3/uL (1.8-7.7); NEUT % 70 % (31-73); PLATELET COUNT 205 x10^3/uL (140-400); RED CELL DISTRIBUTION WIDTH 19.2 % (11.5-14.5); WHITE BLOOD COUNT 9.1 x10^3/uL (4.0-11.0)
[2020-02-18] MEDS ORDERED: ONDANSETRON PF 4 MG/2 ML VIAL. IV ONE (17:15)
[2020-02-18] MEDS ORDERED: INSULIN REGULAR 100 UNIT/ML 3ML VIAL. IV ONE (17:15)
[2020-02-18] MEDS ORDERED: IV NORMAL SALINE 1000ML BAG 1,000 ML IV ONE (17:15)
[2020-02-18 17:16] LABS: CREATININE 0.9 mg/dL (0.6-1.0); GFR 69.7; POTASSIUM 4.4 mmol/L (3.5-5.1)
[2020-02-18 17:22] LABS: ALBUMIN 3.3 g/dL (3.4-5.0); MAGNESIUM 1.9 mg/dL (1.8-2.4); TOTAL BILIRUBIN 0.3 mg/dL (0.2-1.0); TOTAL PROTEIN 6.6 g/dL (6.4-8.2)
[2020-02-18] MEDS ORDERED: IOHEXOL 300 MG/ML 100ML VIAL. IV ONE (17:30)
[2020-02-18] MEDS ORDERED: fentaNYL PF VIAL 100 MCG/2 ML VIAL IV ONE ×2 (17:30→18:45)
[2020-02-18] MEDS ORDERED: CONTRAST GIVEN. MC PRN (17:30)
--- NOTE | 2020-02-18 18:10 | RAD ---
CT abdomen and pelvis with contrast PQRS statement: CT scans at this facility use dose reduction including either automated exposure control, iterative reconstructions, and /or weight based radiation dosing via mA and kV modification when appropriate to reduce radiation dose to as low as reasonably achievable. HISTORY: Right lower quadrant abdominal pain. TECHNIQUE: 75 mL Omnipaque 350 intravenous contrast. COMPARISON: CT abdomen and pelvis January 31, 2020. Advise: Subcutaneous tubular densities at the left breast may be varicosities extends outside the [id number]. Cholecystectomy. 3 cm left adrenal myelolipoma. Mild splenomegaly cranial caudal length of 15.5 cm stable. Right adrenal, kidneys, liver and pancreas are unremarkable. The appendix is negative. No obstruction or inflammatory changes in GI tract. No abdominal fluid or adenopathy. Pelvis findings: Hysterectomy. Ovaries absent or markedly atrophic and obscured by surrounding bowel loops. No fluid or adenopathy. Bladder, rectum and bones are unremarkable. IMPRESSION: 1. No acute process. Appendix is negative. 2. Subcutaneous tubular densities of the left breast may represent varicosities. 3. Mild splenomegaly. Electronically signed by: Pop Hyde MD (02/18/2020 6:06 PM) [facility]
--- NOTE | 2020-02-18 18:17 | PHYS DOC ---
Past Medical History Past Medical History: Diabetes-Type I Additional Past Medical Histor: PHILLIPS Past Surgical History: Cholecystectomy, Hysterectomy Additional Past Surgical Histo: UMBILICAL HERNIA Smoking Status: Current Every Day Smoker Alcohol Use: None Drug Use: None General Adult EDM: Chief Complaint: ABDOMINAL PAIN HPI: HPI: Patient is a 39 year old female who presents to the emergency department with complaints of right lower quadrant abdominal pain that began today and increased blood sugar for the last 3 days. Patient complains of nausea at this time. she denies any vomiting, diarrhea, dysuria, hematuria, back pain, fever, cough, chest pain, or palpitations. Patient reports that she has been out of her insulin pump supplies for the last 3 days and that her blood sugar has been elevated since she has not had her basal insulin infusing. She denies polyuria, polyphagia, or polydipsia. Patient currently rates her pain 8 out of 10 on the pain scale, she denies any alleviating or exacerbating factors. Review of Systems: Review of Systems: Constitutional: Denies fever or chills. [] Eyes: Denies change in visual acuity. [] HENT: Denies nasal congestion or sore throat. [] Respiratory: Denies cough or shortness of breath. [] Cardiovascular: Denies chest pain or edema. [] GI: See HPI : Denies dysuria. [] Musculoskeletal: Denies back pain or joint pain. [] Integument: Denies rash. [] Neurologic: Denies headache, focal weakness or sensory changes. [] Endocrine: See HPI Lymphatic: Denies swollen glands. [] Psychiatric: Denies depression or anxiety. [] Heart Score: Risk Factors: Risk Factors: DM, Current or recent (<one month) smoker, HTN, HLP, family history of CAD, obesity. Risk Scores: Score 0 - 3: 2.5% MACE over next 6 weeks - Discharge Home Score 4 - 6: 20.3% MACE over next 6 weeks - Admit for Clinical Observation Score 7 - 10: 72.7% MACE over next 6 weeks - Early Invasive Strategies Current Medications: Current Medications Medications (Trade) Dose Ordered Sig/Taqueria Start Time Stop Time Status Last Admin Dose Admin Fentanyl Citrate (Fentanyl 2ml Vial) 50 mcg 1X ONCE 02/18/20 17:30 02/18/20 17:31 DC 02/18/20 17:32 50 MCG Info (CONTRAST GIVEN -- Rx MONITORING) 1 each PRN DAILY PRN 02/18/20 17:30 02/20/20 17:29 Insulin Human Regular (HumuLIN R VIAL) 5 unit 1X ONCE 02/18/20 17:15 02/18/20 17:16 DC 02/18/20 17:35 5 UNIT Iohexol (Omnipaque 300 Mg/ml) 75 ml 1X ONCE 02/18/20 17:30 02/18/20 17:31 DC Ondansetron HCl (Zofran) 4 mg 1X ONCE 02/18/20 17:15 02/18/20 17:16 DC 02/18/20 17:32 4 MG Sodium Chloride 1,000 ml @ 1,000 mls/hr 1X ONCE 02/18/20 17:15 02/18/20 18:14 DC 02/18/20 17:29 1,000 MLS/HR Allergies: Allergies: Allergies Coded Allergies Type Severity Reaction Last Updated Verified ketorolac Allergy Severe rash 01/31/20 Yes levofloxacin Allergy Intermediate Rash 05/13/19 Yes shellfish derived Allergy Intermediate RASH/ITCH 09/15/19 Yes vancomycin Allergy Intermediate Rash 05/13/19 Yes Physical Exam: PE: Constitutional: Well developed, well nourished, no acute distress, non-toxic appearance, obese. [] HENT: Normocephalic, atraumatic, bilateral external ears normal, oropharynx moist, no oral exudates, nose normal. [] Eyes: PERRLA, EOMI, conjunctiva normal, no discharge. [] Neck: Normal range of motion, no stridor. [] Cardiovascular:Heart rate regular rhythm, no murmur [] Lungs & Thorax: Bilateral breath sounds clear to auscultation, Respirations even and unlabored, no retractions, no respiratory distress [] Abdomen: Bowel sounds normal, soft, right lower quadrant tenderness to palpation, no rebound tenderness, no guarding, no masses, no pulsatile masses. [] Skin: Warm, dry, no erythema, no rash. [] Back: No tenderness Extremities: No cyanosis, ROM intact, no edema. [] Neurologic: Alert and oriented X 3, no focal deficits noted. [] Psychologic: Affect normal, judgement normal, mood normal. [] Current Patient Data: Labs: Laboratory Tests Test 6/20/20 16:20 02/18/20 16:33 02/18/20 16:34 02/18/20 16:50 Urine Collection Type Unknown Urine Color Yellow Urine Clarity Clear Urine pH 6.0 (<5.0-8.0) Urine Specific Mclean >=1.030 (1.000-1.030) Urine Protein Negative mg/dL (NEG-TRACE) Urine Glucose (UA) >=1000 mg/dL (NEG) Urine Ketones (Stick) Negative mg/dL (NEG) Urine Blood Negative (NEG) Urine Nitrite Negative (NEG) Urine Bilirubin Negative (NEG) Urine Urobilinogen Dipstick 0.2 mg/dL (0.2 mg/dL) Urine Leukocyte Esterase Negative (NEG) Urine RBC 1-2 /HPF (0-2) Urine WBC Occ /HPF (0-4) Urine Squamous Epithelial Cells Few /LPF Urine Bacteria 0 /HPF (0-FEW) POC Urine HCG, Qualitative Hcg negative (Negative) Glucose (Fingerstick) 486 mg/dL (70-99) H White Blood Count 9.1 x10^3/uL (4.0-11.0) Red Blood Count 4.40 x10^6/uL (3.50-5.40) Hemoglobin 11.8 g/dL (12.0-15.5) L Hematocrit 35.0 % (36.0-47.0) L Mean Corpuscular Volume 80 fL (79-100) Mean Corpuscular Hemoglobin 27 pg (25-35) Mean Corpuscular Hemoglobin Concent 34 g/dL (31-37) Red Cell Distribution Width 19.2 % (11.5-14.5) H Platelet Count 205 x10^3/uL (140-400) Neutrophils (%) (Auto) 70 % (31-73) Lymphocytes (%) (Auto) 21 % (24-48) L Monocytes (%) (Auto) 7 % (0-9) Eosinophils (%) (Auto) 1 % (0-3) Basophils (%) (Auto) 1 % (0-3) Neutrophils # (Auto) 6.4 x10^3/uL (1.8-7.7) Lymphocytes # (Auto) 1.9 x10^3/uL (1.0-4.8) Monocytes # (Auto) 0.6 x10^3/uL (0.0-1.1) Eosinophils # (Auto) 0.1 x10^3/uL (0.0-0.7) Basophils # (Auto) 0.1 x10^3/uL (0.0-0.2) Sodium Level 135 mmol/L (136-145) L Potassium Level 4.4 mmol/L (3.5-5.1) Chloride Level 99 mmol/L (98-107) Carbon Dioxide Level 27 mmol/L (21-32) Anion Gap 9 (6-14) Blood Urea Nitrogen 9 mg/dL (7-20) Creatinine 0.9 mg/dL (0.6-1.0) Estimated GFR (Cockcroft-Gault) 69.7 BUN/Creatinine Ratio 10 (6-20) Glucose Level 475 mg/dL (70-99) H Calcium Level 9.0 mg/dL (8.5-10.1) Magnesium Level 1.9 mg/dL (1.8-2.4) Total Bilirubin 0.3 mg/dL (0.2-1.0) Aspartate Amino Transferase (AST) 52 U/L (15-37) H Alanine Aminotransferase (ALT) 62 U/L (14-59) H Alkaline Phosphatase 105 U/L (46-116) Total Protein 6.6 g/dL (6.4-8.2) Albumin 3.3 g/dL (3.4-5.0) L Albumin/Globulin Ratio 1.0 (1.0-1.7) Lipase 122 U/L (73-393) Acetone Level Neg (NEG) Laboratory Tests 02/18/20 16:50 Laboratory Tests 02/18/20 16:50 Vital Signs: Vital Signs Date Time Temp Pulse Resp B/P (MAP) Pulse Ox O2 Delivery O2 Flow Rate FiO2 02/18/20 16:25 98.5 91 20 126/59 (81) 97 Room Air 98.5 EKG: EKG: [] Radiology/Procedures: Radiology/Procedures: PROCEDURE: CT ABD PELV W/ IV CONTRST ONLY CT abdomen and pelvis with contrast PQRS statement: CT scans at this facility use dose reduction including either automated exposure control, iterative reconstructions, and /or weight based radiation dosing via mA and kV modification when appropriate to reduce radiation dose to as low as reasonably achievable. HISTORY: Right lower quadrant abdominal pain. TECHNIQUE: 75 mL Omnipaque 350 intravenous contrast. COMPARISON: CT abdomen and pelvis January 31, 2020. Advise: Subcutaneous tubular densities at the left breast may be varicosities extends outside the [id number]. Cholecystectomy. 3 cm left adrenal myelolipoma. Mild splenomegaly cranial caudal length of 15.5 cm stable. Right adrenal, kidneys, liver and pancreas are unremarkable. The appendix is negative. No obstruction or inflammatory changes in GI tract. No abdominal fluid or adenopathy. Pelvis findings: Hysterectomy. Ovaries absent or markedly atrophic and obscured by surrounding bowel loops. No fluid or adenopathy. Bladder, rectum and bones are unremarkable. IMPRESSION: 1. No acute process. Appendix is negative. 2. Subcutaneous tubular densities of the left breast may represent varicosities. 3. Mild splenomegaly. [] Course & Med Decision Making: Course & Med Decision Making Pertinent Labs and Imaging studies reviewed. (See chart for details) Patient is a 39-year-old female well-known to the emergency department who presents to the emergency department today with complaints of hyperglycemia and right lower quadrant abdominal pain. CBC reveals mild anemia with a hemoglobin of 11.8, hematocrit of 35;,patient has a history of Phillips mildly elevated AST and ALT, on arrival patient's blood glucose was 486, patient sodium was 135. Patient was given 1 L of normal saline, 5 units of IV insulin, 2 doses of 50 mcg of fentanyl, and 4 mg of Zofran in the emergency department. She reported relief of nausea and decreased pain after these medications. Advised the patient to continue taking her insulin at home as reported. Advised patient of the normal CT results. Encourage patient follow-up with primary care doctor for further evaluation of chronic abdominal pain. Encouraged patient to return to the emergency room if symptoms worsen. A prescription was written for Zofran. Patient verbalized an understanding of home care, medications, follow-up, and return to ED instructions and was in agreement with the plan of care. [] Dragon Disclaimer: Dragon Disclaimer: This electronic medical record was generated, in whole or in part, using a voice recognition dictation system. Departure Departure Impression: Primary Impression: Hyperglycemia Additional Impression: Right sided abdominal pain Disposition: HOME, SELF-CARE Condition: STABLE Referrals: JANET FULLER (PCP) Patient Instructions: Abdominal Pain (Nonspecific), Hyperglycemia, [id number] Additional Instructions: Continue taking your insulin as reported. Fill the prescription and use as directed. Follow-up with your primary care doctor next week. Return to the ER if symptoms worsen. Scripts Ondansetron (ONDANSETRON ODT) 4 Mg Tab.rapdis 1 TAB PO PRN Q6-8HRS PRN for NAUSEA/VOMITING for 4 Days, #16 TAB 0 Refills Prov: TEO LAM APRN 02/18/20 Justicifation of Admission Dx: Justifications for Admission: Justification of Admission Dx: N/A TEO LAM [employer] SECURITY SYSTEMS ENGINEER Feb 18, 2020 18:17
[2020-02-18] MEDS ORDERED: ONDA4TAB12 PO (18:26)
[2020-02-18 19:32] VITALS: BP 133/70
== END 2020-02-18 19:36 | disposition home or self-care (01) ==
LOC: ER 16:08
DX: E10.65 Type 1 diabetes mellitus with hyperglycemia (principal); R10.31 Right lower quadrant pain; F17.200 Nicotine dependence, unspecified, uncomplicated; Z90.49 Acquired absence of other specified parts of digestive tract; Z90.710 Acquired absence of both cervix and uterus; Z98.890 Other specified postprocedural states; Z91.013 Allergy to seafood; Z88.1 Allergy status to other antibiotic agents; Z88.8 Allergy status to other drugs, medicaments and biological substances
CPT/HCPCS: 36415; 74177; 80053; 81001; 81025; 82010; 82962; 83690; 83735; 85025; 96374; 96375; 96376; 99285; J1815; J2405; J3010; J7030

== ENCOUNTER 2020-03-10 15:52 | Emergency (ER) | payer BC ==
[~2020-03-10] VITALS: Ht 162.6 cm; Wt 86.0 kg
[2020-03-10] MEDS ORDERED: IV NORMAL SALINE 1000ML BAG 1,000 ML IV ONE ×2 (17:00→18:00)
[2020-03-10 17:06] LABS: BASO # 0.1 x10^3/uL (0.0-0.2); BASO % 1 % (0-3); EOS # 0.1 x10^3/uL (0.0-0.7); EOS % 1 % (0-3); HEMATOCRIT 39.1 % (36.0-47.0); HEMOGLOBIN 12.9 g/dL (12.0-15.5); LYMPH # 2.1 x10^3/uL (1.0-4.8); LYMPH % 26 % (24-48); MEAN CORPUSCULAR HEMOGLOBIN 27 pg (25-35); MEAN CORPUSCULAR HGB CONC 33 g/dL (31-37); MEAN CORPUSCULAR VOLUME 82 fL (79-100); MONO # 0.6 x10^3/uL (0.0-1.1); MONO % 7 % (0-9); NEUT # 5.2 x10^3/uL (1.8-7.7); NEUT % 65 % (31-73); PLATELET COUNT 189 x10^3/uL (140-400); RED BLOOD COUNT 4.79 x10^6/uL (3.50-5.40); RED CELL DISTRIBUTION WIDTH 21.2 % (11.5-14.5)
[2020-03-10 17:21] LABS: CALCIUM 8.8 mg/dL (8.5-10.1); CREATININE 0.9 mg/dL (0.6-1.0); GFR 69.7; POTASSIUM 4.3 mmol/L (3.5-5.1)
[2020-03-10 17:27] LABS: ALBUMIN 3.4 g/dL (3.4-5.0); TOTAL BILIRUBIN 0.3 mg/dL (0.2-1.0); TOTAL PROTEIN 6.9 g/dL (6.4-8.2)
[2020-03-10] MEDS ORDERED: MORPHINE SULFATE 2 MG/ML VIAL. IV ONE ×2 (17:30→18:45)
[2020-03-10] MEDS ORDERED: ONDANSETRON PF 4 MG/2 ML VIAL. IVP ONE (17:30)
[2020-03-10 17:39] LABS: PLT ESTIMATE ADEQUATE (ADEQUATE)
[2020-03-10 17:40] LABS: ANISOCYTOSIS MOD
[2020-03-10 17:41] LABS: POLYCHROMASIA SLIGHT
[2020-03-10 17:42] LABS: TOXIC GRANULATION SLIGHT
[2020-03-10] MEDS ORDERED: INSULIN REGULAR 100 UNIT/ML 3ML VIAL. SQ ONE (18:30)
[2020-03-10 19:00] VITALS: BP 121/70
--- NOTE | 2020-03-10 19:43 | PHYS DOC ---
Past Medical History Past Medical History: Diabetes-Type II Additional Past Medical Histor: PHILLIPS, type 2 insulin dependent diabetic (ANA SUTHERLAND APRN) Past Surgical History: Cholecystectomy, Hysterectomy Additional Past Surgical Histo: UMBILICAL HERNIA. L hand carpal tunnel (ANA SUTHERLAND APRN) Smoking Status: Current Every Day Smoker Alcohol Use: None Drug Use: None (ANA SUTHERLAND APRN) General Adult EDM: Chief Complaint: HYPERGLYCEMIA HPI: HPI: Patient is a 39 year old female who presents with presents to the emergency department with complaints of increased blood sugar values after seeing her tungsten refiner yesterday and having her insulin pump basal rate decreased by 3 units/h from 6 units/h. Patient states that this morning her blood sugar was greater than 400 so she gave herself an additional 25 units of Humalog at 1500 today. Patient states she also has left upper quadrant pain, also states she gets this pain when her blood sugars are high. Patient rates her pain at a 10 out of 10. Patient patient denies any fever chills, vision changes. Patient denies nasal congestion or sore throat. Patient denies cough or shortness of breath. Patient denies any chest pain or chest discomfort or swelling of her extremities. Patient does complain of left upper quadrant pain, but denies nausea, vomiting, diarrhea, bloody stools or constipation at this time. Patient denies any problems urinating. Patient denies any vaginal discharge, or STI concerns. Patient denies back pain or pain in her joints. Patient denies rash. Patient denies any headaches or focal weaknesses or sensory changes. Patient denies any recent polyuria or polydipsia. Patient denies any swelling of her glands. Patient denies any recent depressions anxieties or HI/SI. (ANA SUTHERLAND APRN) Review of Systems: Review of Systems: Constitutional: Denies fever or chills. Eyes: Denies change in visual acuity. HENT: Denies nasal congestion or sore throat. Respiratory: Denies cough or shortness of breath. Cardiovascular: Denies chest pain or edema. GI: Complains of left upper quadrant pain, denies pain to all other abdominal quadrants, denies radiation of pain, patient denies nausea, vomiting, bloody stools or diarrhea or constipation. : Denies dysuria. Musculoskeletal: Denies back pain or joint pain. Integument: Denies rash. Neurologic: Denies headache, focal weakness or sensory changes. Endocrine: Denies polyuria or polydipsia, does however complain of increased blood glucose levels after having basal rate decreased from 6 units/h to 3 units/h on her insulin pump. Lymphatic: Denies swollen glands. Psychiatric: Denies depression or anxiety, patient denies SI/HI. (ANA SUTHERLAND APRN) Heart Score: Risk Factors: Risk Factors: DM, Current or recent (<one month) smoker, HTN, HLP, family history of CAD, obesity. Risk Scores: Score 0 - 3: 2.5% MACE over next 6 weeks - Discharge Home Score 4 - 6: 20.3% MACE over next 6 weeks - Admit for Clinical Observation Score 7 - 10: 72.7% MACE over next 6 weeks - Early Invasive Strategies (ANA SUTHERLAND APRN) Family History: Family History: Patient states she has a family history of type 2 diabetes. (ANA SUTHERLAND APRN) Current Medications: Current Medications Medications (Trade) Dose Ordered Sig/Taqueria Start Time Stop Time Status Last Admin Dose Admin Insulin Human Regular (HumuLIN R VIAL) 10 unit 1X ONCE 03/10/20 18:30 03/10/20 18:31 DC 03/10/20 18:02 10 UNIT Morphine Sulfate (Morphine Sulfate) 2 mg 1X ONCE 03/10/20 18:45 03/10/20 18:46 DC 03/10/20 18:27 2 MG Ondansetron HCl (Zofran) 4 mg 1X ONCE 03/10/20 17:30 03/10/20 17:31 DC 03/10/20 17:05 4 MG Sodium Chloride 1,000 ml @ 1,000 mls/hr 1X ONCE 03/10/20 18:00 03/10/20 18:59 DC 03/10/20 18:02 1,000 MLS/HR (ANA SUTHERLAND APRN) Allergies: Allergies: Allergies Coded Allergies Type Severity Reaction Last Updated Verified ketorolac Allergy Severe rash 01/31/20 Yes levofloxacin Allergy Intermediate Rash 05/13/19 Yes shellfish derived Allergy Intermediate RASH/ITCH 09/15/19 Yes vancomycin Allergy Intermediate Rash 05/13/19 Yes (ANA SUTHERLAND APRN) Physical Exam: PE: Constitutional: Well developed, well nourished, no acute distress, non-toxic appearance. HENT: Normocephalic, atraumatic, bilateral external ears normal, oropharynx moist, no oral exudates, nose normal. Eyes: PERRLA, EOMI, conjunctiva normal, no discharge. Pupils 3 mm. Neck: Normal range of motion, no tenderness, supple, no stridor. Cardiovascular:Heart rate regular rhythm, no murmur, heart sounds S1-S2, no abnormalities per auscultation. Lungs & Thorax: Bilateral breath sounds clear to auscultation all lung celaya. Abdomen: Bowel sounds normal, soft, tenderness to palpation left upper quadrant without radiation, no tenderness to remaining abdominal quadrants, no masses, no pulsatile masses. Skin: Warm, dry, no erythema, no rash. Back: No tenderness, no CVA tenderness. Extremities: No tenderness, no cyanosis, no clubbing, ROM intact, no edema. Neurologic: Alert and oriented X 3, normal motor function, normal sensory function, no focal deficits noted. Psychologic: Affect normal, judgement normal, mood normal no HI/SI. (ANA SUTHERLAND APRN) Current Patient Data: Labs: Laboratory Tests Test 03/10/20 16:32 03/10/20 16:43 03/10/20 16:55 03/10/20 17:49 Glucose (Fingerstick) 449 mg/dL (70-99) H 354 mg/dL (70-99) H POC Urine HCG, Qualitative Hcg negative (Negative) White Blood Count 8.0 x10^3/uL (4.0-11.0) Red Blood Count 4.79 x10^6/uL (3.50-5.40) Hemoglobin 12.9 g/dL (12.0-15.5) Hematocrit 39.1 % (36.0-47.0) Mean Corpuscular Volume 82 fL (79-100) Mean Corpuscular Hemoglobin 27 pg (25-35) Mean Corpuscular Hemoglobin Concent 33 g/dL (31-37) Red Cell Distribution Width 21.2 % (11.5-14.5) H Platelet Count 189 x10^3/uL (140-400) Neutrophils (%) (Auto) 65 % (31-73) Lymphocytes (%) (Auto) 26 % (24-48) Monocytes (%) (Auto) 7 % (0-9) Eosinophils (%) (Auto) 1 % (0-3) Basophils (%) (Auto) 1 % (0-3) Neutrophils # (Auto) 5.2 x10^3/uL (1.8-7.7) Lymphocytes # (Auto) 2.1 x10^3/uL (1.0-4.8) Monocytes # (Auto) 0.6 x10^3/uL (0.0-1.1) Eosinophils # (Auto) 0.1 x10^3/uL (0.0-0.7) Basophils # (Auto) 0.1 x10^3/uL (0.0-0.2) Toxic Granulation Slight Platelet Estimate Adequate (ADEQUATE) Polychromasia Slight Anisocytosis Mod Sodium Level 136 mmol/L (136-145) Potassium Level 4.3 mmol/L (3.5-5.1) Chloride Level 101 mmol/L (98-107) Carbon Dioxide Level 26 mmol/L (21-32) Anion Gap 9 (6-14) Blood Urea Nitrogen 7 mg/dL (7-20) Creatinine 0.9 mg/dL (0.6-1.0) Estimated GFR (Cockcroft-Gault) 69.7 BUN/Creatinine Ratio 8 (6-20) Glucose Level 450 mg/dL (70-99) H Calcium Level 8.8 mg/dL (8.5-10.1) Total Bilirubin 0.3 mg/dL (0.2-1.0) Aspartate Amino Transferase (AST) 40 U/L (15-37) H Alanine Aminotransferase (ALT) 78 U/L (14-59) H Alkaline Phosphatase 104 U/L (46-116) Total Protein 6.9 g/dL (6.4-8.2) Albumin 3.4 g/dL (3.4-5.0) Albumin/Globulin Ratio 1.0 (1.0-1.7) Lipase 164 U/L (73-393) Acetone Level Neg (NEG) Test 03/10/20 19:10 Glucose (Fingerstick) 286 mg/dL (70-99) H Laboratory Tests 03/10/20 16:55 Laboratory Tests 03/10/20 16:55 Vital Signs: Vital Signs Date Time Temp Pulse Resp B/P (MAP) Pulse Ox O2 Delivery O2 Flow Rate FiO2 7/11/20 19:00 93 16 121/70 (87) 96 Room Air 03/10/20 16:00 98.8 98.8 (ANA SUTHERLAND APRN) EKG: EKG: [] (ANA SUTHERLAND APRN) Radiology/Procedures: Radiology/Procedures: [] (ANA SUTHERLAND APRN) Course & Med Decision Making: Course & Med Decision Making Pertinent Labs and Imaging studies reviewed. (See chart for details) 39-year-old female patient presents to the emergency department with complaints of increased blood sugar values at home after having her basal rate decreased by her tungsten refiner yesterday from 6 units/h to 3 units/h. Patient states that she gets abdominal pains when her blood sugars are high, and noticed her blood sugars were over 400 so she came to the emergency department for evaluation. Vital signs are reviewed along with lab values. Patient's blood sugar was 450 however patient states that prior to arrival she gave herself an additional 25 units Humalog through her insulin pump therefore immediate insulin orders from the emergency department was deferred and saline was administered while waiting an appropriate time to recheck blood sugar to reevaluate if additional insulin i s required. Patient was given IV morphine and fentanyl for her abdominal pain as lab values non-concerning for acute pancreatitis or gallbladder disease or infectious process. Patient's lab values did not suggest DKA. Blood sugar after 2 L of normal saline IV infusion was reduced to 286. Patient stated that she was hungry and had some hard candies from her purse. And a repeat blood sugar showed 335. Concerning for uncontrolled blood sugar diabetes type 2, [facility] Dr. Edwards was contacted and case reviewed for possible admission to the hospital. Dr. Edwards indicated he was well aware this patient and did not recommend admission, however he did recommend she take an additional 60 units of Lantus twice a day with close monitoring of blood glucose levels to replace the 3 unit/h Humalog decrease and to have her follow-up Thursday morning with her tungsten refiner for reevaluation of insulin pump management. Discussed with patient discharge and Dr. Edwards's recommendations, patient was agreeable to this. Patient states that her abdominal pain was completely relieved. Return to emergency room concerns and precautions were reviewed with patient, patient gave verbal understanding of discharge, home care instructions, had no further concerns or questions, patient discharged to home self-care. (ANA SUTHERLAND APRN) Draganshul Disclaimer: Dragon Disclaimer: This electronic medical record was generated, in whole or in part, using a voice recognition dictation system. (ANA SUTHERLAND APRN) Departure Departure Impression: Primary Impression: Hyperglycemia due to diabetes mellitus Additional Impression: Abdominal pain Qualified Codes: R10.11 - Right upper quadrant pain Disposition: HOME, SELF-CARE Condition: GOOD Referrals: JANET FULLER (PCP) Patient Instructions: Abdominal Pain (Nonspecific), Hyperglycemia Additional Instructions: See your doctor on Thursday regarding your insulin pump and recent changes. Return to ER for further concerns. Justicifation of Admission Dx: Justifications for Admission: Justification of Admission Dx: N/A (ANA SUTHERLAND APRN) Attending Signature Attending Signature I have reviewed the PA/DEVELOPMENT PROFESSIONAL's note and plan of care. I was available for consultation as needed during the patient's visit in the emergency department. I agree with the clinical impression, plan, and disposition. (ANA FULLER DO) ANA SUTHERLAND APRN Mar 10, 2020 19:43 ANA FULLER DO Mar 15, 2020 01:13
[2020-03-10] MEDS ORDERED: fentaNYL PF VIAL 100 MCG/2 ML VIAL IVP ONE (20:15)
== END 2020-03-10 20:50 | disposition home or self-care (01) ==
LOC: ER 15:52
DX: E11.65 Type 2 diabetes mellitus with hyperglycemia (principal); R10.11 Right upper quadrant pain; F17.200 Nicotine dependence, unspecified, uncomplicated; Z90.49 Acquired absence of other specified parts of digestive tract; Z90.710 Acquired absence of both cervix and uterus; Z79.4 Long term (current) use of insulin; Z88.1 Allergy status to other antibiotic agents; Z88.6 Allergy status to analgesic agent; Z91.013 Allergy to seafood
CPT/HCPCS: 36415; 80053; 81025; 82010; 82962; 83690; 85025; 96361; 96372; 96374; 96375; 96376; 99285; J1815; J2270; J2405; J3010; J7030

== ENCOUNTER 2020-03-18 20:48 | Emergency (ER) | payer BC ==
[~2020-03-18] VITALS: Ht 165.1 cm; Wt 86.4 kg
--- NOTE | 2020-03-18 21:08 | PHYS DOC ---
Past Medical History Past Medical History: Diabetes-Type II Additional Past Medical Histor: PHILLIPS, type 2 insulin dependent diabetic Past Surgical History: Cholecystectomy, Hysterectomy Additional Past Surgical Histo: UMBILICAL HERNIA. L hand carpal tunnel Smoking Status: Current Every Day Smoker Alcohol Use: None Drug Use: None General Adult EDM: Chief Complaint: ABDOMINAL PAIN HPI: HPI: Patient is a 39 year old female presents with left upper quadrant pain that began today. Patient also states she had low blood sugar. Patient was seen at [facility] 3 days ago for lower abdominal pain. Patient states she started on antibiotic for urinary tract infection. The left upper quadrant pain is described pain in nature and radiates to the back. Pain is worse with eating. Patient has had nausea but no vomiting or diarrhea. Patient denies any shortness of breath. Patient denies any symptoms currently Review of Systems: Review of Systems: Constitutional: Denies fever or chills. [] Eyes: Denies change in visual acuity. [] HENT: Denies nasal congestion or sore throat. [] Respiratory: Denies cough or shortness of breath. [] Cardiovascular: Denies chest pain or edema. [] GI: Reports left upper quadrant pain, nausea, no vomiting or diarrhea : Denies dysuria. [] Musculoskeletal: Denies back pain or joint pain. [] Integument: Denies rash. [] Neurologic: Denies headache, focal weakness or sensory changes. [] Endocrine: Complains of low blood sugar Lymphatic: Denies swollen glands. [] Psychiatric: Denies depression or anxiety. [] Heart Score: Risk Factors: Risk Factors: DM, Current or recent (<one month) smoker, HTN, HLP, family history of CAD, obesity. Risk Scores: Score 0 - 3: 2.5% MACE over next 6 weeks - Discharge Home Score 4 - 6: 20.3% MACE over next 6 weeks - Admit for Clinical Observation Score 7 - 10: 72.7% MACE over next 6 weeks - Early Invasive Strategies Allergies: Allergies: Allergies Coded Allergies Type Severity Reaction Last Updated Verified ketorolac Allergy Severe rash 01/31/20 Yes levofloxacin Allergy Intermediate Rash 05/13/19 Yes shellfish derived Allergy Intermediate RASH/ITCH 09/15/19 Yes vancomycin Allergy Intermediate Rash 05/13/19 Yes Physical Exam: PE: Constitutional: Well developed, well nourished, no acute distress, non-toxic appearance. [] HENT: Normocephalic, atraumatic, bilateral external ears normal, oropharynx moist, no oral exudates, nose normal. [] Eyes: PERRLA, EOMI, conjunctiva normal, no discharge. [] Neck: Normal range of motion, no tenderness, supple, no stridor. [] Cardiovascular:Heart rate regular rhythm, Lungs & Thorax: No respiratory distress Abdomen: soft, minimal tenderness in the left upper quadrant, no masses, no pulsatile masses. [No guarding or rebound] Skin: Warm, dry, no erythema, no rash. [] Back: No tenderness, no CVA tenderness. [] Extremities: No tenderness, no cyanosis, no clubbing, ROM intact, no edema. [] Neurologic: Alert and oriented X 3, normal motor function, normal sensory function, no focal deficits noted. [] Psychologic: Affect normal, judgement normal, mood normal. [] Current Patient Data: Labs: Laboratory Tests Test 03/18/20 20:50 03/18/20 21:05 03/18/20 21:12 03/18/20 21:30 Glucose (Fingerstick) 54 mg/dL Urine Collection Type Unknown Urine Color Yellow Urine Clarity Clear Urine pH 6.5 Urine Specific [place] 1.015 Urine Protein Negative mg/dL Urine Glucose (UA) Negative mg/dL Urine Ketones (Stick) Negative mg/dL Urine Blood Negative Urine Nitrite Negative Urine Bilirubin Negative Urine Urobilinogen Dipstick 1.0 mg/dL Urine Leukocyte Esterase Trace Urine RBC Occ /HPF Urine WBC 5-10 /HPF Urine Squamous Epithelial Cells Mod /LPF Urine Bacteria Few /HPF Urine Mucus Mod /LPF Bedside Urine HCG, Qualitative Borderline hcg level White Blood Count 15.7 x10^3/uL Red Blood Count 5.08 x10^6/uL Hemoglobin 14.3 g/dL Hematocrit 40.9 % Mean Corpuscular Volume 81 fL Mean Corpuscular Hemoglobin 28 pg Mean Corpuscular Hemoglobin Concent 35 g/dL Red Cell Distribution Width 21.7 % Platelet Count 299 x10^3/uL Neutrophils (%) (Auto) 73 % Lymphocytes (%) (Auto) 18 % Monocytes (%) (Auto) 7 % Eosinophils (%) (Auto) 1 % Basophils (%) (Auto) 1 % Neutrophils # (Auto) 11.5 x10^3/uL Lymphocytes # (Auto) 2.9 x10^3/uL Monocytes # (Auto) 1.1 x10^3/uL Eosinophils # (Auto) 0.1 x10^3/uL Basophils # (Auto) 0.2 x10^3/uL Platelet Estimate Adequate Anisocytosis Mod Sodium Level 140 mmol/L Potassium Level 3.3 mmol/L Chloride Level 103 mmol/L Carbon Dioxide Level 26 mmol/L Anion Gap 11 Blood Urea Nitrogen 5 mg/dL Creatinine 0.8 mg/dL Estimated GFR (Cockcroft-Gault) 79.9 BUN/Creatinine Ratio 6 Glucose Level 44 mg/dL Calcium Level 9.0 mg/dL Total Bilirubin 0.3 mg/dL Aspartate Amino Transf (AST/SGOT) 42 U/L Alanine Aminotransferase (ALT/SGPT) 65 U/L Alkaline Phosphatase 114 U/L Total Protein 7.5 g/dL Albumin 3.6 g/dL Albumin/Globulin Ratio 0.9 Lipase 65 U/L Current Medications Medications (Trade) Dose Ordered Sig/Taqueria Route PRN Reason Start Time Stop Time Status Last Admin Dose Admin Sodium Chloride 1,000 ml @ 1,000 mls/hr 1X ONCE IV 03/18/20 21:30 03/18/20 22:29 DC 03/18/20 21:38 Dextrose (Dextrose 50%-Water Syringe) 25 gm 1X ONCE IV 03/18/20 21:30 03/18/20 21:31 DC 03/18/20 21:38 Prochlorperazine Edisylate (Compazine) 10 mg 1X ONCE IV 03/18/20 22:30 03/18/20 22:31 DC 03/18/20 22:21 Laboratory Tests Test 03/18/20 20:50 Glucose (Fingerstick) 54 mg/dL (70-99) L EKG: EKG: [] EKG interpreted by ia sinus tach with a rate of 108, left axis deviation, nonspecific ST changes, Radiology/Procedures: Radiology/Procedures: [] Course & Med Decision Making: Course & Med Decision Making Pertinent Labs and Imaging studies reviewed. (See chart for details) [Reassessment at 2300. Patient resting in bed. No distress. Patient states she does have some abdominal pain but abdomen is soft and nontender. Doubt surgical emergency. With lab work-up is reassuring. Recheck blood sugar that is okay she can be discharged home.] 2345 patient's blood sugar is 30 another amp of D50 has been ordered 1:10: BS 86. CLIICALLY stable. tolerating po Dragon Disclaimer: Amalia Disclaimer: This electronic medical record was generated, in whole or in part, using a voice recognition dictation system. Departure Departure Impression: Primary Impression: Abdominal pain Additional Impression: Hypoglycemia Disposition: HOME, SELF-CARE Condition: STABLE Referrals: JANET FULLER (PCP) 2-3 DAYS Patient Instructions: Abdominal Pain (Nonspecific), Hypoglycemia (Low Blood S ugar) Additional Instructions: EMERGENCY DEPARTMENT GENERAL DISCHARGE INSTRUCTIONS Thank you for coming to [facility] Emergency Department (ED) today and trusting us with you care. We trust that you had a positivie experience in our Emergency Department. If you wish to speak to the department management, you may call the sirector at [phone]. YOUR FOLLOW UP INSTRUCTIONS ARE FOLLOWS: 1. Do you have a private Doctor? If you do not have a private doctir, please ask for a resource list of physicians or clinics that may be able to assist you with follow up care. 2. The Emergency Physicain has interpreted your x-rays. The X-Ray specialist will also review them. If there is a change in the findingd, you will be notified in 48 hours when at all possible. 3. A lab test or culture has been done, your results will be reviewed and you will be notified if you need a change in treatment. ADDITIONAL INSTRUCTIONS AND INFORMATION: 1. Your care today has been supervised by a physician who is specially trained in emergency care. Many problems require more than one evaluation for a complete diagnosis and treatment. We recommend that you schedule your follow up appointment as recommended to ensure complete treatment of you illness or injury. If you are unable to obtain follow up care and continue to have a problem, or if your consition worsens, we recommend that you return to the ED. 2. We are not able to safelymdetermine your condition over the phone nor are we able to give sound medical advice over the phone. For these safety reasons, if you call for medical advice we will ask you to come to the ED for further evaluation. 3. If you have any questions regarding these discharge instructions please call the ED at [phone]. SAFETY INFORMATION: In the interest of safety, wellness, and injury prevention; we encourage you to wear your sealbelt, if you smoke; quite smoking, and we encourage family to use a protective helmet for bicycling and other sporting events that present an increased risk for head injusry. IF YOUR SYMPTOMS WORSEN OR NEW SYMPTOMS DEVELOP, OR YOU HAVE CONCERNS ABOUT YOUR CONDITION; OR IF YOUR CONDITION WORSENS WHILE YOU ARE WAITING FOR YOUR FOLLOW UP APPOINTMENT; EITHER CONTACT YOUR PRIMARY CARE DOCTOR, THE PHYSICIAN WHOSE NAME AND NUMBER YOU WERE GIVEN, OR RETURN TO THE ED IMMEDIATELY. Scripts Hyoscyamine Sulfate (LEVSIN) 0.125 Mg Tablet 1 TAB PO Q4HRS PRN for PAIN for 5 Days, #30 TAB 0 Refills Prov: TIKI ENRIQUEZ MD 03/18/20 Ondansetron Hcl (ZOFRAN) 4 Mg Tablet 1 TAB PO Q6HRS PRN for NAUSEA/VOMITING for 4 Days, #12 TAB Prov: TIKI ENRIQUEZ MD 03/18/20 Justicifation of Admission Dx: Justifications for Admission: Justification of Admission Dx: N/A TIKI ENRIQUEZ MD Mar 18, 2020 21:08
[2020-03-18 21:15] LABS: BILIRUBIN,URINE NEGATIVE (NEG); CLARITY,URINE CLEAR; COLOR,URINE YELLOW; NITRITE,URINE NEGATIVE (NEG); PH,URINE 6.5 (<5.0-8.0); PROTEIN,URINE NEGATIVE (NEG-TRACE)
[2020-03-18 21:21] LABS: RBC,URINE OCC /HPF (0-2)
[2020-03-18 21:22] LABS: BACTERIA,URINE FEW /HPF (0-FEW); SQUAMOUS EPITHELIAL CELL,UR MOD /LPF
[2020-03-18] MEDS ORDERED: IV NORMAL SALINE 1000ML BAG 1,000 ML IV ONE (21:30)
[2020-03-18] MEDS ORDERED: DEXTROSE 50% 25 GM / 50ML DISP.SYRIN. IV ONE (21:30)
[2020-03-18 21:42] LABS: BASO # 0.2 x10^3/uL (0.0-0.2); BASO % 1 % (0-3); EOS # 0.1 x10^3/uL (0.0-0.7); EOS % 1 % (0-3); HEMATOCRIT 40.9 % (36.0-47.0); HEMOGLOBIN 14.3 g/dL (12.0-15.5); LYMPH # 2.9 x10^3/uL (1.0-4.8); LYMPH % 18 % (24-48); MEAN CORPUSCULAR HEMOGLOBIN 28 pg (25-35); MEAN CORPUSCULAR HGB CONC 35 g/dL (31-37); MEAN CORPUSCULAR VOLUME 81 fL (79-100); MONO # 1.1 x10^3/uL (0.0-1.1); MONO % 7 % (0-9); NEUT # 11.5 x10^3/uL (1.8-7.7); NEUT % 73 % (31-73); PLATELET COUNT 299 x10^3/uL (140-400); RED BLOOD COUNT 5.08 x10^6/uL (3.50-5.40); RED CELL DISTRIBUTION WIDTH 21.7 % (11.5-14.5); WHITE BLOOD COUNT 15.7 x10^3/uL (4.0-11.0)
[2020-03-18 21:56] LABS: ALBUMIN 3.6 g/dL (3.4-5.0); ALBUMIN/GLOBULIN RATIO 0.9 (1.0-1.7); CREATININE 0.8 mg/dL (0.6-1.0); GFR 79.9; POTASSIUM 3.3 mmol/L (3.5-5.1); TOTAL BILIRUBIN 0.3 mg/dL (0.2-1.0); TOTAL PROTEIN 7.5 g/dL (6.4-8.2)
[2020-03-18 22:02] LABS: ANISOCYTOSIS MOD; PLT ESTIMATE ADEQUATE (ADEQUATE)
[2020-03-18] MEDS ORDERED: PROCHLORPERAZINE 10 MG/2 ML VIAL. IV ONE (22:30)
[2020-03-18] MEDS ORDERED: HYOS0.1264 PO (23:07)
[2020-03-18] MEDS ORDERED: ONDA4TAB7 PO (23:07)
[2020-03-19] MEDS ORDERED: DEXTROSE 50% 25 GM / 50ML DISP.SYRIN. IV ONE (00:30)
[2020-03-19 01:42] VITALS: BP 91/60
--- NOTE | 2020-03-19 11:47 | EKG ---
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
== END 2020-03-19 01:53 | disposition home or self-care (01) ==
LOC: ER 20:48
DX: R10.32 Left lower quadrant pain (principal); E11.649 Type 2 diabetes mellitus with hypoglycemia without coma; F17.200 Nicotine dependence, unspecified, uncomplicated; Z90.49 Acquired absence of other specified parts of digestive tract; Z90.710 Acquired absence of both cervix and uterus; Z98.890 Other specified postprocedural states; Z88.1 Allergy status to other antibiotic agents; Z91.013 Allergy to seafood; Z88.6 Allergy status to analgesic agent; Z88.8 Allergy status to other drugs, medicaments and biological substances; Z79.899 Other long term (current) drug therapy
CPT/HCPCS: 36415; 80053; 81001; 81025; 82962; 83690; 85025; 87086; 93005; 96361; 96374; 96375; 96376; 99285; J0780; J7030

== ENCOUNTER 2020-03-25 16:32 | Emergency (ER) | payer BC ==
[~2020-03-25] VITALS: Ht 162.6 cm; Wt 86.0 kg
[~2020-03-25 16:32] MED LIST changes: +HYOS0.1264 PO
[2020-03-25] MEDS ORDERED: IV NORMAL SALINE 1000ML BAG 1,000 ML IV SCH (16:52)
[2020-03-25 17:20] LABS: BASO # 0.1 x10^3/uL (0.0-0.2); BASO % 1 % (0-3); EOS # 0.1 x10^3/uL (0.0-0.7); EOS % 1 % (0-3); HEMATOCRIT 39.7 % (36.0-47.0); HEMOGLOBIN 13.3 g/dL (12.0-15.5); LYMPH # 1.8 x10^3/uL (1.0-4.8); LYMPH % 19 % (24-48); MEAN CORPUSCULAR HEMOGLOBIN 28 pg (25-35); MEAN CORPUSCULAR HGB CONC 34 g/dL (31-37); MEAN CORPUSCULAR VOLUME 83 fL (79-100); MONO # 0.6 x10^3/uL (0.0-1.1); MONO % 6 % (0-9); NEUT # 6.7 x10^3/uL (1.8-7.7); NEUT % 72 % (31-73); PLATELET COUNT 195 x10^3/uL (140-400); RED BLOOD COUNT 4.79 x10^6/uL (3.50-5.40); RED CELL DISTRIBUTION WIDTH 21.5 % (11.5-14.5); WHITE BLOOD COUNT 9.2 x10^3/uL (4.0-11.0)
[2020-03-25] MEDS ORDERED: ONDANSETRON PF 4 MG/2 ML VIAL. IVP ONE (17:30)
[2020-03-25] MEDS ORDERED: INSULIN REGULAR 100 UNIT/ML 3ML VIAL. IV ONE (17:30)
--- NOTE | 2020-03-25 17:32 | PHYS DOC ---
Past Medical History Past Medical History: Diabetes-Type II Additional Past Medical Histor: PHILLIPS, type 2 insulin dependent diabetic Past Surgical History: No Surgical History Additional Past Surgical Histo: UMBILICAL HERNIA. L hand carpal tunnel Smoking Status: Current Every Day Smoker Alcohol Use: None Drug Use: None General Adult EDM: Chief Complaint: HYPERGLYCEMIA HPI: HPI: Patient is a 39 year old female who presented to ER today for evaluation of elevated blood sugar. Patient claimed that she has history of diabetic, she is on insulin pump. Patient claimed that her children BROKE her insulin vials from the refrigerator last night so she ran out of her insulin, last dose of insulin was this morning. Patient denies any fever, no nausea vomiting. Patient has been evaluated multiple times for blood sugar problem, and she always asked for narcotic for abdominal pain. Review of Systems: Review of Systems: Constitutional: Denies fever or chills. [] Eyes: Denies change in visual acuity. [] HENT: Denies nasal congestion or sore throat. [] Respiratory: Denies cough or shortness of breath. [] Cardiovascular: Denies chest pain or edema. [] GI: Positive for positive for nausea vomiting, abdominal pain Musculoskeletal: Denies back pain or joint pain. [] Integument: Denies rash. [] Neurologic: Denies headache, focal weakness or sensory changes. [] Endocrine: Denies polyuria or polydipsia. [] Lymphatic: Denies swollen glands. [] Psychiatric: Denies depression or anxiety. [] Heart Score: Risk Factors: Risk Factors: DM, Current or recent (<one month) smoker, HTN, HLP, family history of CAD, obesity. Risk Scores: Score 0 - 3: 2.5% MACE over next 6 weeks - Discharge Home Score 4 - 6: 20.3% MACE over next 6 weeks - Admit for Clinical Observation Score 7 - 10: 72.7% MACE over next 6 weeks - Early Invasive Strategies Current Medications: Current Medications Medications (Trade) Dose Ordered Sig/Taqueria Start Time Stop Time Status Last Admin Dose Admin Insulin Human Regular (HumuLIN R VIAL) 10 unit 1X ONCE 03/25/20 17:30 03/25/20 17:31 Ondansetron HCl (Zofran) 4 mg 1X ONCE 03/25/20 17:30 03/25/20 17:31 Sodium Chloride 1,000 ml @ 1,000 mls/hr Q1H 03/25/20 16:52 03/25/20 17:51 03/25/20 17:11 1,000 MLS/HR Allergies: Allergies: Allergies Coded Allergies Type Severity Reaction Last Updated Verified ketorolac Allergy Severe rash 01/31/20 Yes levofloxacin Allergy Intermediate Rash 05/13/19 Yes shellfish derived Allergy Intermediate RASH/ITCH 09/15/19 Yes vancomycin Allergy Intermediate Rash 05/13/19 Yes Physical Exam: PE: Constitutional: Well developed, well nourished, no acute distress, non-toxic appearance. [] HENT: Normocephalic, atraumatic, bilateral external ears normal, oropharynx moist, no oral exudates, nose normal. [] Eyes: PERRLA, EOMI, conjunctiva normal, no discharge. [] Neck: Normal range of motion, no tenderness, supple, no stridor. [] Cardiovascular:Heart rate regular rhythm, no murmur [] Lungs & Thorax: Bilateral breath sounds clear to auscultation [] Abdomen: Bowel sounds normal, soft, no tenderness, no masses, no pulsatile masses. [] Skin: Warm, dry, no erythema, no rash. [] Back: No tenderness, no CVA tenderness. [] Extremities: No tenderness, no cyanosis, no clubbing, ROM intact, no edema. [] Neurologic: Alert and oriented X 3, normal motor function, normal sensory function, no focal deficits noted. [] Psychologic: Affect normal, judgement normal, mood normal. [] Current Patient Data: Labs: Laboratory Tests Test 03/25/20 16:53 03/25/20 17:15 Glucose (Fingerstick) 434 mg/dL (70-99) H White Blood Count 9.2 x10^3/uL (4.0-11.0) Red Blood Count 4.79 x10^6/uL (3.50-5.40) Hemoglobin 13.3 g/dL (12.0-15.5) Hematocrit 39.7 % (36.0-47.0) Mean Corpuscular Volume 83 fL (79-100) Mean Corpuscular Hemoglobin 28 pg (25-35) Mean Corpuscular Hemoglobin Concent 34 g/dL (31-37) Red Cell Distribution Width 21.5 % (11.5-14.5) H Platelet Count 195 x10^3/uL (140-400) Neutrophils (%) (Auto) 72 % (31-73) Lymphocytes (%) (Auto) 19 % (24-48) L Monocytes (%) (Auto) 6 % (0-9) Eosinophils (%) (Auto) 1 % (0-3) Basophils (%) (Auto) 1 % (0-3) Neutrophils # (Auto) 6.7 x10^3/uL (1.8-7.7) Lymphocytes # (Auto) 1.8 x10^3/uL (1.0-4.8) Monocytes # (Auto) 0.6 x10^3/uL (0.0-1.1) Eosinophils # (Auto) 0.1 x10^3/uL (0.0-0.7) Basophils # (Auto) 0.1 x10^3/uL (0.0-0.2) Platelet Estimate Pending Laboratory Tests 03/25/20 17:15 EKG: EKG: [] Radiology/Procedures: Radiology/Procedures: [] Course & Med Decision Making: Course & Med Decision Making Pertinent Labs and Imaging studies reviewed. (See chart for details) Patient was given IV fluid in the ER, and insulin in the ER. Her blood sugar improved. 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 Amalia Disclaimer: Amalia Disclaimer: This electronic medical record was generated, in whole or in part, using a voice recognition dictation system. Departure Departure Impression: Primary Impression: Hyperglycemia Additional Impression: Dehydration Disposition: 01 HOME, SELF-CARE Condition: IMPROVED Referrals: JANET FULLER (PCP) Please follow-up with your family doctor tomorrow. Patient Instructions: Dehydration, Adult, Hyperglycemia Justicifation of Admission Dx: Justifications for Admission: Justification of Admission Dx: N/A BROOK MATTHEWS DO Mar 25, 2020 17:32
[2020-03-25 17:36] LABS: PREG TEST PT QUAL NEGATIVE (NEG)
[2020-03-25 17:42] LABS: ANISOCYTOSIS MOD; CALCIUM 8.6 mg/dL (8.5-10.1); GFR 61.7; PLT ESTIMATE ADEQUATE (ADEQUATE); POLYCHROMASIA SLIGHT; POTASSIUM 3.9 mmol/L (3.5-5.1)
[2020-03-25 17:47] LABS: ALBUMIN 3.2 g/dL (3.4-5.0); ALBUMIN/GLOBULIN RATIO 0.8 (1.0-1.7); TOTAL BILIRUBIN 0.4 mg/dL (0.2-1.0); TOTAL PROTEIN 7.1 g/dL (6.4-8.2)
[2020-03-25] MEDS ORDERED: ACETAMINOPHEN 500 MG TABLET PO ONE (18:00)
[2020-03-25 18:25] LABS: BILIRUBIN,URINE NEGATIVE (NEG); CLARITY,URINE CLEAR; COLOR,URINE YELLOW; NITRITE,URINE NEGATIVE (NEG); PROTEIN,URINE NEGATIVE (NEG-TRACE); UROBILINOGEN,URINE 0.2 mg/dL (0.2 mg/dL)
[2020-03-25 18:29] LABS: SQUAMOUS EPITHELIAL CELL,UR MOD /LPF
[2020-03-25 18:30] LABS: BACTERIA,URINE FEW /HPF (0-FEW); RBC,URINE OCC /HPF (0-2)
[2020-03-25] MEDS ORDERED: IV NORMAL SALINE 1000ML BAG 1,000 ML IV ONE (18:30)
[2020-03-25] MEDS ORDERED: MORPHINE SULFATE 4 MG/ML VIAL. IV ONE (18:30)
[2020-03-25 18:31] LABS: WBC,URINE OCC /HPF (0-4); YEAST,URINE PRESENT /HPF
[2020-03-25 19:26] VITALS: BP 128/71
== END 2020-03-25 20:00 | disposition home or self-care (01) ==
LOC: ER 16:32
DX: E11.65 Type 2 diabetes mellitus with hyperglycemia (principal); E86.0 Dehydration; R11.2 Nausea with vomiting, unspecified; F17.200 Nicotine dependence, unspecified, uncomplicated; Z98.890 Other specified postprocedural states; Z91.013 Allergy to seafood; Z88.1 Allergy status to other antibiotic agents; Z88.8 Allergy status to other drugs, medicaments and biological substances
CPT/HCPCS: 36415; 80053; 81001; 82010; 82962; 83690; 83735; 84703; 85025; 96361; 96374; 96375; 99285; J1815; J2270; J2405; J7030

== ENCOUNTER → 2020-03-26 | Outpatient (CLI) | payer BC ==
[2020-03-25 19:26] VITALS: BP 128/71
[~2020-03-26] MED LIST changes: +REGADENOSON 0.4 MG/5 ML DISP.SYRIN. IV ONE
--- NOTE | 2020-03-26 10:47 | CARD ---
MR#: [id number] Date of Study: 03/26/2020 Ordering Physician: LISSET RIVERA, Referring Physician: LISSET RIVERA, Tech: Leanne Ernandez APPROVED REPORT EXAM: Two-dimensional and M-mode echocardiogram with Doppler and color Doppler. Other Information Quality : AverageHR: 80bpm INDICATION Abnormal EKG RISK FACTORS Diabetes Smoking 2D DIMENSIONS RVDd3.2 (2.9-3.5cm)Left Atrium(2D)3.1 (1.6-4.0cm) IVSd1.1 (0.7-1.1cm)Aortic Root(2D)3.0 (2.0-3.7cm) LVDd4.9 (3.9-5.9cm)LVOT Diameter2.0 (1.8-2.4cm) PWd1.1 (0.7-1.1cm)LVDs3.5 (2.5-4.0cm) FS (%) 28.3 %SV61.4 ml LVEF(%)54.5 (>50%) Aortic Valve AoV Peak Odell.159.2cm/sAoV VTI29.3cm AO Peak GR.10.1mmHgLVOT Peak Odell.120.8cm/s LVOT VTI 25.34cmAO Mean GR.6mmHg DEWEY (VMAX)1.89ns5RXK (VTI)2.77cm2 Mitral Valve MV E Ruzrckun22.1cm/sMV DECEL FJDZ527fm MV A Ubklpgpl19.9cm/sMV E Mean Gr.1mmHg MV PAW26vqG/A Ratio0.8 MVA (PHT)3.34cm2 TDI E/Lateral E'4.7E/Medial E'6.4 Pulmonary Valve PV Peak Hucupmdb162.2cm/sPV Peak Grad.4mmHg Tricuspid Valve TR P. Xvyrcsoi239uq/sRAP ZUDPCFHF31rsUu TR Peak Gr.54miBkGKHR34coRy Pulmonary Vein S1 Itfyhjgp27.2cm/sD2 Piobypsh22.3cm/s PVa [id number] LEFT VENTRICLE The left ventricle is normal size. There is borderline concentric left ventricular hypertrophy. The l eft ventricular systolic function is normal and the ejection fraction is within normal range. The Eje ction Fraction is 60-65%. There is normal LV segmental wall motion. Transmitral Doppler flow pattern is Grade I-abnormal relaxation pattern. RIGHT VENTRICLE The right ventricle is normal size. There is normal right ventricular wall thickness. The right ventr icular systolic function is normal. ATRIA The left atrium size is normal. The right atrium size is normal. The interatrial septum is intact wit h no evidence for an atrial septal defect or patent foramen ovale as noted on 2-D or Doppler imaging. AORTIC VALVE The aortic valve is thickened but opens well. Doppler and Color Flow revealed no significant aortic r egurgitation. There is no significant aortic valvular stenosis. Calculated aortic valve area is 2.25 cm2 with maximum pressure gradient of 12 mmHg and mean pressure gradient of 7 mmHg. MITRAL VALVE The mitral valve is normal in structure and function. There is no evidence of mitral valve prolapse. There is no mitral valve stenosis. Doppler and Color-flow revealed trace mitral regurgitation. TRICUSPID VALVE The tricuspid valve is normal in structure and function. Doppler and Color Flow revealed trace tricus pid regurgitation with an estimated PAP of 40 mmHg. There is no tricuspid valve stenosis. PULMONIC VALVE The pulmonic valve is not well visualized. Doppler and Color Flow revealed no pulmonic valvular regur gitation. There is no pulmonic valvular stenosis. GREAT VESSELS The aortic root is normal in size. The IVC is normal in size and collapses >50% with inspiration. PERICARDIAL EFFUSION There is no evidence of significant pericardial effusion. Critical Notification Critical Value: No <Conclusion> The left ventricular systolic function is normal and the ejection fraction is within normal range. Th e Ejection Fraction is 60-65%. There is normal LV segmental wall motion. Doppler and Color Flow revealed trace tricuspid regurgitation with an estimated PAP of 40 mmHg. Signed by : Lisset Rivera, Electronically Approved : 03/26/2020 10:47:08
--- NOTE | 2020-03-26 12:06 | RAD ---
MR#: [id number] Date of Study: 03/26/2020 Ordering Physician: LISSET RIVERA, Referring Physician: SEGUNDO MALAGON Tech: SHELBY Coleman APPROVED REPORT Test Type: Pharmacological Stress Nurse/Tech: Gladys Starr RN Test Indications: Exertional Dyspnea Cardiac History: See EMR Medications: Insulin Pump, See EMR Medical History: Smoker, DM, Liver Mass, See EMR Resting ECG: SR Resting Heart Rate: 81 bpm Resting Blood Pressure: 110/64mmHg Pretest Chest Pain: No chest pain Nurse/Tech Notes Lungs CTA, Heart tones regular. Consent: The procedure was explained to the patient in lay terms. Informed consent was witnessed. Nehemias eout was entered into [employer]. History and Stress Test performed by VIRGEN Bird, GRACIA (R) (N) Pharm. Details Pharmacologic stress testing was performed using 0.4mg per 5ml of regadenoson given intravenously ove r 7-10 seconds. Stress Symptoms No chest pain or symptoms. POST EXERCISE Reason for Termination: Infusion complete Max HR: 109 bpm Max Blood Pressure: 112/65mmHg Blood Pressure response to exercise: Normal blood pressure response during stress. Heart Rate response to exercise: WNL Chest Pain: No. Arrhythmia: No. ST Change: No. INTERPRETATION Stress EKG Conclusion: No evidence of stress induced EKG changes. Imaging Protocol IMAGE PROTOCOL: Rest Tc-99m/stress Tc-99m 1 day Rest: Stress: Viability: Radiopharm.Tc99m MxphgbnisCv27o Sestamibi Meib54gPl 33mCi Duration 15min. 10min. Img Date 03/26/2020 03/26/2020 Inj-Img Cike44wbg. 60min. Rest Admin Site:IV - Left WristAdministrator:SHELBY Coleman Stress Admin Site: IV - Left WristAdministrator: VIRGEN Bird, GRACIA (R)(N) STRESS DATA End Diast. Vol.77.0mlEnd Syst. Vol.20.0ml Myocardial Bagj017.0gEject. Arpekhnf01.0% Stress Scores Regional WT1.00Summed WT7.00 Regional WM0.00Summed WM1.00 The rest and stress images show normal perfusion, normal contraction and thickening. LV Perf. Quant 17 Seg. SSS0.00 17 Seg. SRS1.00 17 Seg. SDS0.00 Stress Defect Extent (% LAD)0.00Rest Defect Extent (% LAD)0.00Rev. Defect Extent (% LAD)0.00 Stress Defect Extent (% LCX) 0.00Rest Defect Extent (% LCX)5.00Rev. Defect Extent (% LCX)0.00 Stress Defect Extent (% RCA)0.00Rest Defect Extent (% RCA)0.00Rev. Defect Extent (% RCA)0.00 Stress Defect Extent (% JOSE D)0.00Rest Defect Extent (% JOSE D)1.70Rev. Defect Extent (% JOSE D)0.00 Other Information Quality:Good Risk Assessment: Low Risk Conclusion 1. No evidence of stress induced EKG changes. 2. Normal perfusion at stress/rest. 3. Normal EF at > 70% 4. Low risk study Signed by : Lisset Rivera, Electronically Approved : 03/26/2020 12:06:20
== END | disposition home or self-care (01) ==
LOC: NM 09:24
PROVIDERS: ATTEND Internal Medicine Cardiovascular Disease
DX: I51.7 Cardiomegaly (principal); R06.09 Other forms of dyspnea; E11.9 Type 2 diabetes mellitus without complications; R94.31 Abnormal electrocardiogram [ECG] [EKG]; F17.200 Nicotine dependence, unspecified, uncomplicated
CPT/HCPCS: 78452; 93017; 93306; A9500; J2785

== ENCOUNTER 2020-04-09 22:21 | Emergency (ER) | payer BC ==
[~2020-04-09] VITALS: Ht 162.6 cm; Wt 86.4 kg
[~2020-04-09 22:21] MED LIST changes: -REGADENOSON 0.4 MG/5 ML DISP.SYRIN. IV ONE
[2020-04-09 23:45] VITALS: BP 129/89
--- NOTE | 2020-04-10 00:10 | PHYS DOC ---
Past Medical History Past Medical History: Diabetes-Type II Additional Past Medical Histor: PHILLIPS, type 2 insulin dependent diabetic Past Surgical History: No Surgical History Additional Past Surgical Histo: UMBILICAL HERNIA. L hand carpal tunnel Smoking Status: Current Every Day Smoker Alcohol Use: None Drug Use: None General Adult EDM: Chief Complaint: OTHER COMPLAINTS HPI: HPI: Patient is a 39 year old female who presents with 2-day history of fever to 100.9 diarrhea chills myalgias shortness of breath. Patient's diabetic and states her blood sugars in the 280s. Patient denies any significant abdominal pain. Patient denies cough or headache but states that she just does not feel well. Patient's has been around multiple COVID patients. Review of Systems: Review of Systems: Constitutional: Reports fever Eyes: Denies change in visual acuity. [] HENT: Denies nasal congestion or sore throat. [] Respiratory: Denies cough but has shortness of breath. [] Cardiovascular: Denies chest pain or edema. [] GI: Denies abdominal pain but has diarrhea and nausea. : Denies dysuria. [] Musculoskeletal: Complains of myalgias Integument: Denies rash. [] Neurologic: Denies headache, focal weakness or sensory changes. [] Endocrine: Denies polyuria or polydipsia. [] Lymphatic: Denies swollen glands. [] Psychiatric: Denies depression or anxiety. [] Heart Score: Risk Factors: Risk Factors: DM, Current or recent (<one month) smoker, HTN, HLP, family history of CAD, obesity. Risk Scores: Score 0 - 3: 2.5% MACE over next 6 weeks - Discharge Home Score 4 - 6: 20.3% MACE over next 6 weeks - Admit for Clinical Observation Score 7 - 10: 72.7% MACE over next 6 weeks - Early Invasive Strategies Allergies: Allergies: Allergies Coded Allergies Type Severity Reaction Last Updated Verified ketorolac Allergy Severe rash 01/31/20 Yes levofloxacin Allergy Intermediate Rash 05/13/19 Yes shellfish derived Allergy Intermediate RASH/ITCH 09/15/19 Yes vancomycin Allergy Intermediate Rash 05/13/19 Yes Physical Exam: PE: Constitutional: Well developed, well nourished, no acute distress, non-toxic appearance. HENT: No trismus, external ears normal Eyes: Conjunctiva clear, EOMI Neck: Normal range of motion, no tenderness, supple, no stridor. Cardiovascular: Regular rate/rhythm, peripheral pulse intact, [employer] intact Lungs & Thorax: No respiratory distress Abdomen: No distension, nontender no masses no pulsatile masses Skin: Diffuse: Intact, no rash Back: Full ROM Extremities: Normal inspection, no edema Neurologic: Alert and oriented X 3, normal motor function, , no focal deficits noted. Psychologic: Affect normal, judgement normal, mood normal. EKG: EKG: [] Radiology/Procedures: Radiology/Procedures: [] Course & Med Decision Making: Course & Med Decision Making Pertinent Labs and Imaging studies reviewed. (See chart for details) [] My plan was to swab her for coronavirus and do some blood work and give her IV fluids but after my initial evaluation patient said I want to go home and left SHANA Holland Disclaimer: Amalia Disclaimer: This electronic medical record was generated, in whole or in part, using a voice recognition dictation system. Departure Departure Impression: Primary Impression: Antibiotic-induced myalgia Disposition: AGAINST MEDICAL ADVICE Condition: STABLE Referrals: JANET FULLER-Frederic (PCP) Justicifation of Admission Dx: Justifications for Admission: Justification of Admission Dx: N/A TIKI ENRIQUEZ MD Apr 10, 2020 00:10
[2020-04-10] MEDS ORDERED: IV NORMAL SALINE 1000ML BAG 1,000 ML IV SCH (00:15)
[2020-04-10 00:19] LABS: BILIRUBIN,URINE NEGATIVE (NEG); CLARITY,URINE CLEAR; COLOR,URINE YELLOW; NITRITE,URINE NEGATIVE (NEG); PH,URINE 5.5 (<5.0-8.0); PROTEIN,URINE NEGATIVE (NEG-TRACE); UROBILINOGEN,URINE 0.2 mg/dL (0.2 mg/dL)
[2020-04-10 00:25] LABS: BACTERIA,URINE FEW /HPF (0-FEW); RBC,URINE 0 /HPF (0-2); SQUAMOUS EPITHELIAL CELL,UR MOD /LPF; YEAST,URINE PRESENT /HPF
== END 2020-04-10 00:19 | disposition left against medical advice (07) ==
LOC: ER 22:21
DX: R50.9 Fever, unspecified (principal); R06.02 Shortness of breath; R19.7 Diarrhea, unspecified; E11.9 Type 2 diabetes mellitus without complications; F17.200 Nicotine dependence, unspecified, uncomplicated; Z98.890 Other specified postprocedural states; Z88.1 Allergy status to other antibiotic agents; Z91.013 Allergy to seafood; Z88.8 Allergy status to other drugs, medicaments and biological substances
CPT/HCPCS: 81001; 99283

== ENCOUNTER 2020-05-21 13:36 | Emergency (ER) | payer BC ==
[~2020-05-21] VITALS: Ht 162.6 cm; Wt 86.3 kg
[2020-05-21] MEDS ORDERED: IV NORMAL SALINE 1000ML BAG 1,000 ML IV SCH (14:19)
[2020-05-21 14:33] LABS: BILIRUBIN,URINE NEGATIVE (NEG); CLARITY,URINE CLEAR; COLOR,URINE YELLOW; NITRITE,URINE NEGATIVE (NEG); PROTEIN,URINE NEGATIVE (NEG-TRACE); UROBILINOGEN,URINE 0.2 mg/dL (0.2 mg/dL)
--- NOTE | 2020-05-21 14:39 | PHYS DOC ---
Past Medical History Past Medical History: Diabetes-Type II Additional Past Medical Histor: PHILLIPS, type 2 insulin dependent diabetic Past Surgical History: No Surgical History Additional Past Surgical Histo: UMBILICAL HERNIA. L hand carpal tunnel Smoking Status: Current Every Day Smoker Alcohol Use: None Drug Use: None General Adult EDM: Chief Complaint: BLOOD SUGAR PROBLEM HPI: HPI: Patient is a 40 year old female who presents to ER today for evaluation of elevated blood sugar, left abdominal pain. Patient has a history of diabetic, she had insulin pump, she ran out of her insulin 3 days ago, she is supposed to have her insulin today. Patient came in today because she checked her blood sugar and it was over 600. Patient also complains of left-sided abdominal pain, she feels like it is a kidney stone acting up again. Patient denies any fever, no nausea vomiting Review of Systems: Review of Systems: Constitutional: Denies fever or chills. [] Eyes: Denies change in visual acuity. [] HENT: Denies nasal congestion or sore throat. [] Respiratory: Denies cough or shortness of breath. [] Cardiovascular: Denies chest pain or edema. [] GI: Positive for abdominal pain, no nausea vomiting. : Denies dysuria. [] Musculoskeletal: Denies back pain or joint pain. [] Integument: Denies rash. [] Neurologic: Denies headache, focal weakness or sensory changes. [] Endocrine: Denies polyuria or polydipsia. [] Lymphatic: Denies swollen glands. [] Psychiatric: Denies depression or anxiety. [] Heart Score: Risk Factors: Risk Factors: DM, Current or recent (<one month) smoker, HTN, HLP, family history of CAD, obesity. Risk Scores: Score 0 - 3: 2.5% MACE over next 6 weeks - Discharge Home Score 4 - 6: 20.3% MACE over next 6 weeks - Admit for Clinical Observation Score 7 - 10: 72.7% MACE over next 6 weeks - Early Invasive Strategies Current Medications: Current Medications Medications (Trade) Dose Ordered Sig/Taqueria Start Time Stop Time Status Last Admin Dose Admin Sodium Chloride 1,000 ml @ 1,000 mls/hr Q1H 05/21/20 14:19 05/21/20 15:18 Allergies: Allergies: Allergies Coded Allergies Type Severity Reaction Last Updated Verified ketorolac Allergy Severe rash 01/31/20 Yes levofloxacin Allergy Intermediate Rash 05/13/19 Yes shellfish derived Allergy Intermediate RASH/ITCH 09/15/19 Yes vancomycin Allergy Intermediate Rash 05/13/19 Yes Physical Exam: PE: Constitutional: Well developed, well nourished, no acute distress, non-toxic appearance. [] HENT: Normocephalic, atraumatic, bilateral external ears normal, oropharynx moist, no oral exudates, nose normal. [] Eyes: PERRLA, EOMI, conjunctiva normal, no discharge. [] Neck: Normal range of motion, no tenderness, supple, no stridor. [] Cardiovascular:Heart rate regular rhythm, no murmur [] Lungs & Thorax: Bilateral breath sounds clear to auscultation [] Abdomen: Bowel sounds normal, soft, THRE IS LEFT LOWER tenderness TO PALPATION, no masses, no pulsatile masses. [] Skin: Warm, dry, no erythema, no rash. [] Back: No tenderness, THERE IS LEFT CVA tenderness. [] Extremities: No tenderness, no cyanosis, no clubbing, ROM intact, no edema. [] Neurologic: Alert and oriented X 3, normal motor function, normal sensory function, no focal deficits noted. [] Psychologic: Affect normal, judgement normal, mood normal. [] Current Patient Data: Labs: Laboratory Tests Test 05/21/20 13:54 Glucose (Fingerstick) 547 mg/dL (70-99) *H Vital Signs: Vital Signs Date Time Temp Pulse Resp B/P (MAP) Pulse Ox O2 Delivery O2 Flow Rate FiO2 05/21/20 13:55 98.3 106 20 123/84 (97) 97 Room Air 98.3 EKG: EKG: [] Radiology/Procedures: Radiology/Procedures: [][facility] [address] [place], [place] [id number] IMAGING REPORT Signed PATIENT: RON REYNA ACCOUNT: [id number] : 1980 LOCATION: ER AGE: 40 SEX: F EXAM STATUS: REG ER ORD. PHYSICIAN: BROOK MATTHEWS DO REASON: left lower abdominal pain X3 days PROCEDURE: ACUTE ABDOMEN SERIES Acute abdominal series to include a portable chest radiograph 05/21/2020 Clinical History: Left lower quadrant abdominal pain for 3 days. An AP erect portable digital radiograph of the chest was obtained. Supine and erect AP portable digital radiographs of the abdomen/pelvis were obtained. Comparison is made to patient's CT scan of the abdomen and pelvis dated 02/18/2020. The cardiac silhouette is normal in size. The thoracic aorta is minimally tortuous. No acute pulmonary infiltrate is seen. No pleural effusion or pneumothorax is noted. Surgical clips overlie the right upper quadrant abdomen consistent with a cholecystectomy. The abdominal bowel gas pattern is nonobstructive. There is no evidence of free air. No radiopaque calculus is seen. The osseous structures are grossly intact. Impression: Nonobstructive bowel gas pattern. Electronically signed by: Ronald Ramirez MD (05/21/2020 4:16 PM) [id number] DICTATED and SIGNED BY: RONALD RAMIREZ MD DATE: 05/21/20 1616 Course & Med Decision Making: Course & Med Decision Making Pertinent Labs and Imaging studies reviewed. (See chart for details) [Patient is a 40-year-old female who presented to ER today for evaluation of left flank pain, patient has been evaluated multiple times for the same chronic pain. Patient also had elevated blood sugar, she claimed that her insulin was lowered. Patient confirmed that she did get her insulin today. Patient was given IV fluid in the ER, blood sugar was around 250. Patient will be discharged home Dragon Disclaimer: Amalia Disclaimer: This electronic medical record was generated, in whole or in part, using a voice recognition dictation system. Departure Departure Impression: Primary Impression: Hyperglycemia Additional Impression: Flank pain Disposition: 01 HOME, SELF-CARE Condition: IMPROVED Referrals: JANET FULLER (PCP) PLEASE FOLLOW UP WITH YOUR FAMILY DOCTOR TOMORROW FOR REEVALUATION Patient Instructions: Flank Pain, Hyperglycemia Additional Instructions: Thank you for visiting our Emergency Department. We appreciate you trusting us with your care. If any additional problems come up don't hesitate to return to visit us. Please follow up with your primary care provider so they can plan additional care if needed and know about the problem that you had. If symptoms worsen come back to the Emergency Department. Any concerning symptoms that start such as chest pain, shortness of air, weakness or numbness on one side of the body, running high fevers or any other concerning symptoms return to the ER. Justicifation of Admission Dx: Justifications for Admission: Justification of Admission Dx: N/A BROOK MATTHEWS DO May 21, 2020 14:39
[2020-05-21 14:41] LABS: BASO # 0.1 x10^3/uL (0.0-0.2); BASO % 1 % (0-3); EOS # 0.1 x10^3/uL (0.0-0.7); EOS % 1 % (0-3); HEMOGLOBIN 15.1 g/dL (12.0-15.5); LYMPH # 2.2 x10^3/uL (1.0-4.8); LYMPH % 22 % (24-48); MEAN CORPUSCULAR HEMOGLOBIN 30 pg (25-35); MEAN CORPUSCULAR HGB CONC 34 g/dL (31-37); MEAN CORPUSCULAR VOLUME 88 fL (79-100); MONO # 0.7 x10^3/uL (0.0-1.1); MONO % 7 % (0-9); NEUT # 6.7 x10^3/uL (1.8-7.7); NEUT % 69 % (31-73); PLATELET COUNT 220 x10^3/uL (140-400); RED BLOOD COUNT 5.03 x10^6/uL (3.50-5.40); RED CELL DISTRIBUTION WIDTH 17.5 % (11.5-14.5); WHITE BLOOD COUNT 9.7 x10^3/uL (4.0-11.0)
[2020-05-21] MEDS ORDERED: INSULIN REGULAR 100 UNIT/ML 3ML VIAL. IV ONE (14:45)
[2020-05-21 14:57] LABS: ALBUMIN 3.7 g/dL (3.4-5.0); ALBUMIN/GLOBULIN RATIO 0.8 (1.0-1.7); CALCIUM 9.8 mg/dL (8.5-10.1); CREATININE 1.1 mg/dL (0.6-1.0); POTASSIUM 3.8 mmol/L (3.5-5.1); TOTAL BILIRUBIN 0.3 mg/dL (0.2-1.0); TOTAL PROTEIN 8.1 g/dL (6.4-8.2)
[2020-05-21 15:08] LABS: BACTERIA,URINE MODERATE /HPF (0-FEW)
[2020-05-21 15:09] LABS: SQUAMOUS EPITHELIAL CELL,UR OCC /LPF
[2020-05-21 15:10] LABS: YEAST,URINE PRESENT /HPF
[2020-05-21] MEDS ORDERED: MORPHINE SULFATE 4 MG/ML VIAL. IV ONE (15:15)
[2020-05-21] MEDS ORDERED: IV NORMAL SALINE 1000ML BAG 1,000 ML IV ONE (16:00)
--- NOTE | 2020-05-21 16:19 | RAD ---
Acute abdominal series to include a portable chest radiograph 05/21/2020 Clinical History: Left lower quadrant abdominal pain for 3 days. An AP erect portable digital radiograph of the chest was obtained. Supine and erect AP portable digital radiographs of the abdomen/pelvis were obtained. Comparison is made to patient's CT scan of the abdomen and pelvis dated 02/18/2020. The cardiac silhouette is normal in size. The thoracic aorta is minimally tortuous. No acute pulmonary infiltrate is seen. No pleural effusion or pneumothorax is noted. Surgical clips overlie the right upper quadrant abdomen consistent with a cholecystectomy. The abdominal bowel gas pattern is nonobstructive. There is no evidence of free air. No radiopaque calculus is seen. The osseous structures are grossly intact. Impression: Nonobstructive bowel gas pattern. Electronically signed by: Ronald Ramirez MD (05/21/2020 4:16 PM) [id number]
[2020-05-21 16:30] VITALS: BP 98/56
== END 2020-05-21 17:07 | disposition home or self-care (01) ==
LOC: ER 13:36
DX: E11.65 Type 2 diabetes mellitus with hyperglycemia (principal); R10.32 Left lower quadrant pain; Z79.4 Long term (current) use of insulin; F17.200 Nicotine dependence, unspecified, uncomplicated; Z88.1 Allergy status to other antibiotic agents; Z88.6 Allergy status to analgesic agent; Z91.013 Allergy to seafood
CPT/HCPCS: 36415; 74022; 80053; 81001; 82010; 82962; 83690; 85025; 87086; 96361; 96374; 96375; 99285; J1815; J2270; J7030

== ENCOUNTER 2020-06-01 00:50 | Emergency (ER) | payer BC ==
[~2020-06-01] VITALS: Ht 162.6 cm; Wt 86.4 kg
[2020-06-01 01:02] VITALS: BP 117/78
== END 2020-06-01 01:40 | disposition left against medical advice (07) ==
LOC: ER 00:50
DX: E11.65 Type 2 diabetes mellitus with hyperglycemia (principal); J44.9 Chronic obstructive pulmonary disease, unspecified; Z53.21 Procedure and treatment not carried out due to patient leaving prior to being seen by health care provider
CPT/HCPCS: 82962

== ENCOUNTER 2020-08-03 16:25 | Emergency (ER) | payer BC ==
[~2020-08-03] VITALS: Ht 162.6 cm; Wt 87.6 kg
[2020-08-03] MEDS ORDERED: IV NORMAL SALINE 1000ML BAG 1,000 ML IV ONE (20:30)
[2020-08-03] MEDS ORDERED: fentaNYL PF VIAL 100 MCG/2 ML VIAL IV ONE ×2 (20:30→22:00)
[2020-08-03 20:33] LABS: BILIRUBIN,URINE NEGATIVE (NEG); CLARITY,URINE CLEAR; COLOR,URINE YELLOW; NITRITE,URINE NEGATIVE (NEG); PROTEIN,URINE NEGATIVE (NEG-TRACE); UROBILINOGEN,URINE 0.2 mg/dL (0.2 mg/dL)
[2020-08-03 20:39] LABS: BASO % 0 % (0-3); EOS # 0.1 x10^3/uL (0.0-0.7); EOS % 1 % (0-3); HEMATOCRIT 41.3 % (36.0-47.0); HEMOGLOBIN 14.1 g/dL (12.0-15.5); LYMPH # 1.9 x10^3/uL (1.0-4.8); LYMPH % 23 % (24-48); MEAN CORPUSCULAR HEMOGLOBIN 31 pg (25-35); MEAN CORPUSCULAR HGB CONC 34 g/dL (31-37); MEAN CORPUSCULAR VOLUME 91 fL (79-100); MONO # 0.4 x10^3/uL (0.0-1.1); MONO % 5 % (0-9); NEUT # 5.7 x10^3/uL (1.8-7.7); NEUT % 71 % (31-73); PLATELET COUNT 158 x10^3/uL (140-400); RED BLOOD COUNT 4.55 x10^6/uL (3.50-5.40); WHITE BLOOD COUNT 8.1 x10^3/uL (4.0-11.0)
--- NOTE | 2020-08-03 20:39 | PHYS DOC ---
Past Medical History Past Medical History: COPD, Diabetes-Type II Additional Past Medical Histor: PHILLIPS, type 2 insulin dependent diabetic, hydranitis Past Surgical History: Other Additional Past Surgical Histo: UMBILICAL HERNIA. L hand carpal tunnel Smoking Status: Former Smoker Alcohol Use: None Drug Use: None General Adult EDM: Chief Complaint: HYPERGLYCEMIA HPI: HPI: Patient is a 40 year old female who presents with hyperglycemia. Patient reports a max glucose above 600 today with minimal improvement to 563 after hydration with a subsequent rebound to 595. Her normal regimen at home includes jardiance daily, lantus in the evening, and humalog injections with meals. Today she has only eaten a "corn dog" and has been sleeping more. She reports bilateral flank pain that started around noon today. She describes the pain as 8/10, constant, stabbing pain. Denies fever or blood in her urine. Review of Systems: Review of Systems: Constitutional: Denies fever or chills Eyes: Denies eye pain or change in vision HENT: Denies nasal congestion or sore throat Respiratory: Reports shortness of breath, denies cough Cardiovascular: Denies chest pain or palpitations GI: Reports abdominal pain and nausea, denies vomiting : Denies dysuria or hematuria Musculoskeletal: Report flank pain, denies joint pain Integument: Denies rash or skin lesions Neurologic: Denies headache, focal weakness or sensory changes Complete systems were reviewed and found to be within normal limits, except as documented in this note. Current Medications: Current Medications Medications (Trade) Dose Ordered Sig/[facility] Start Time Stop Time Status Last Admin Dose Admin Fentanyl Citrate (Fentanyl 2ml Vial) 50 mcg 1X ONCE 08/03/20 20:30 08/03/20 20:31 UNV Sodium Chloride 1,000 ml @ 1,000 mls/hr 1X ONCE 08/03/20 20:30 08/03/20 21:29 UNV Allergies: Allergies: Allergies Coded Allergies Type Severity Reaction Last Updated Verified ketorolac Allergy Severe rash 01/31/20 Yes levofloxacin Allergy Intermediate Rash 05/13/19 Yes shellfish derived Allergy Intermediate RASH/ITCH 09/15/19 Yes vancomycin Allergy Intermediate Rash 05/13/19 Yes Physical Exam: PE: Constitutional: Well developed, no acute distress, non-toxic appearance HENT: Normocephalic, atraumatic Eyes: PERRL, EOMI, conjunctiva normal, no discharge Neck: Normal range of motion, no tenderness, supple Lungs & Thorax: No respiratory distress, equal chest rise and fall Abdomen: Soft, tender to palpation in all 4 quadrants, dexcom device present on left abdomen Skin: Warm, dry, no erythema, no rash Back: Bilateral flank tenderness, CVA tenderness, positive indirect Cortes punch Extremities: No tenderness, ROM intact, no edema Neurologic: Alert and oriented X 3, normal motor function, normal sensory function, no focal deficits noted Psychologic: Affect normal, judgment normal Current Patient Data: Labs: Laboratory Tests Test 08/03/20 17:46 08/03/20 20:15 POC Urine HCG, Qualitative Hcg negative (Negative) Hcg negative (Negative) Vital Signs: Vital Signs Date Time Temp Pulse Resp B/P (MAP) Pulse Ox O2 Delivery O2 Flow Rate FiO2 08/03/20 20:10 98.6 98 18 127/76 (93) 97 Room Air 98.6 Course & Med Decision Making: Course & Med Decision Making Pertinent Labs reviewed. (See chart for details) Patient is a 40 year old female presenting with hyperglycemia. Accu-chek glucose in ED is 495. IV fluids provided. Labs obtained and posted to chart. Insulin SQ provided. UA negative. UA without signs of infection, high glucose content, no ketones present in urine. UA showed no RBC's so risk benefit of radiation exposure did not warrant imaging. Acetone negative. Zofran provided for nausea. Fentanyl provided for pain. Patient stable for discharge with outpatient follow-up with PCP. Discussed findings and plan with patient, who acknowledges understanding and agreement. Amalia Disclaimer: Amalia Disclaimer: This electronic medical record was generated, in whole or in part, using a voice recognition dictation system. Departure Departure Impression: Primary Impression: Hyperglycemia Additional Impression: Flank pain Disposition: 01 DC HOME SELF CARE/HOMELESS Condition: STABLE Referrals: JANET FULLER (PCP) Patient Instructions: 1800 Calorie Diet for Diabetes Meal Planning, Flank Pain, [id number], Hyperglycemia, [id number] Additional Instructions: Please take previously prescribed zofran as needed for nausea. Follow closely with your PCP regarding possible adjustment of your diabetes medications. ANA FULLER DO Aug 03, 2020 20:39
[2020-08-03 20:42] LABS: BACTERIA,URINE FEW /HPF (0-FEW); RBC,URINE 0 /HPF (0-2)
[2020-08-03] MEDS ORDERED: ONDANSETRON PF 4 MG/2 ML VIAL. IVP ONE (20:45)
[2020-08-03 21:01] LABS: ALBUMIN 3.6 g/dL (3.4-5.0); ALBUMIN/GLOBULIN RATIO 0.9 (1.0-1.7); CALCIUM 9.1 mg/dL (8.5-10.1); GFR 61.4; MAGNESIUM 2.1 mg/dL (1.8-2.4); TOTAL BILIRUBIN 0.4 mg/dL (0.2-1.0); TOTAL PROTEIN 7.5 g/dL (6.4-8.2)
[2020-08-03] MEDS ORDERED: INSULIN REGULAR 100 UNIT/ML 3ML VIAL. SQ ONE (21:30)
[2020-08-03 23:03] VITALS: BP 118/70
== END 2020-08-03 23:10 | disposition home or self-care (01) ==
LOC: ER 16:25
DX: E11.65 Type 2 diabetes mellitus with hyperglycemia (principal); R10.9 Unspecified abdominal pain; R06.02 Shortness of breath; J44.9 Chronic obstructive pulmonary disease, unspecified; E11.9 Type 2 diabetes mellitus without complications; Z87.891 Personal history of nicotine dependence; Z79.4 Long term (current) use of insulin; Z88.1 Allergy status to other antibiotic agents; Z88.6 Allergy status to analgesic agent; Z91.013 Allergy to seafood
CPT/HCPCS: 36415; 80053; 81001; 81025; 82010; 82962; 83690; 83735; 85025; 96361; 96372; 96374; 96375; 96376; 99285; J1815; J2405; J3010; J7030

== ENCOUNTER 2020-09-01 19:56 | Emergency (ER) | payer BC ==
[~2020-09-01] VITALS: Ht 162.6 cm; Wt 87.0 kg
[2020-09-01 23:21] LABS: CALCIUM 9.7 mg/dL (8.5-10.1); GFR 61.4; POTASSIUM 3.9 mmol/L (3.5-5.1)
[2020-09-01 23:27] LABS: TOTAL BILIRUBIN 0.5 mg/dL (0.2-1.0); TOTAL PROTEIN 8.2 g/dL (6.4-8.2)
--- NOTE | 2020-09-01 23:32 | PHYS DOC ---
Past Medical History Past Medical History: Diabetes-Type I Additional Past Medical Histor: PHILLIPS, type 2 insulin dependent diabetic, hydranitis Past Surgical History: Other Additional Past Surgical Histo: NASAL SEPTAL Smoking Status: Current Every Day Smoker Alcohol Use: None Drug Use: None General Adult EDM: Chief Complaint: BLOOD SUGAR PROBLEM HPI: HPI: Patient is a 40 year [id number] female past medical history of diabetes with insulin pump in place presents with a chief complaint of hyperglycemia and bilateral flank pain. Patient states she ran out of her insulin yesterday. Patient states insulin cost $2500 and she is unable to afford it. Prior to arrival patient took her blood sugar and states it read high. Patient states she has associated nausea but has not vomited. Patient complains of bilateral flank pain. Review of Systems: Review of Systems: Constitutional: Denies fever or chills. [] Eyes: Denies change in visual acuity. [] HENT: Denies nasal congestion or sore throat. [] Respiratory: Denies cough or shortness of breath. [] Cardiovascular: Denies chest pain or edema. [] GI: Denies abdominal pain,, vomiting, bloody stools or diarrhea. [Positive nausea] : Denies dysuria. [] Musculoskeletal: Positive back pain Integument: Denies rash. [] Neurologic: Denies headache, focal weakness or sensory changes. [] Endocrine: Denies polyuria or polydipsia. [] Lymphatic: Denies swollen glands. [] Psychiatric: Denies depression or anxiety. [] Heart Score: Risk Factors: Risk Factors: DM, Current or recent (<one month) smoker, HTN, HLP, family history of CAD, obesity. Risk Scores: Score 0 - 3: 2.5% MACE over next 6 weeks - Discharge Home Score 4 - 6: 20.3% MACE over next 6 weeks - Admit for Clinical Observation Score 7 - 10: 72.7% MACE over next 6 weeks - Early Invasive Strategies Current Medications: Current Medications Medications (Trade) Dose Ordered Sig/[employer] Start Time Stop Time Status Last Admin Dose Admin Acetaminophen (Tylenol) 650 mg 1X ONCE 09/01/20 23:45 09/01/20 23:46 Sodium Chloride 1,000 ml @ 1,000 mls/hr 1X ONCE 09/01/20 23:45 09/02/20 00:44 Allergies: Allergies: Allergies Coded Allergies Type Severity Reaction Last Updated Verified ketorolac Allergy Severe rash 01/31/20 Yes levofloxacin Allergy Intermediate Rash 05/13/19 Yes shellfish derived Allergy Intermediate RASH/ITCH 09/15/19 Yes vancomycin Allergy Intermediate Rash 05/13/19 Yes Physical Exam: PE: Constitutional: Well developed, well nourished, no acute distress, non-toxic a ppearance. [] HENT: Normocephalic, atraumatic, bilateral external ears normal, oropharynx moist, no oral exudates, nose normal. [] Eyes: PERRLA, EOMI, conjunctiva normal, no discharge. [] Neck: Normal range of motion, no tenderness, supple, no stridor. [] Cardiovascular:Heart rate regular rhythm, no murmur [] Lungs & Thorax: Bilateral breath sounds clear to auscultation [] Abdomen: Bowel sounds normal, soft, no tenderness, no masses, no pulsatile masses. [] Skin: Warm, dry, no erythema, no rash. [] Back: No tenderness, no CVA tenderness. [] Extremities: No tenderness, no cyanosis, no clubbing, ROM intact, no edema. [] Neurologic: Alert and oriented X 3, normal motor function, normal sensory function, no focal deficits noted. [] Psychologic: Affect normal, judgement normal, mood normal. [] Current Patient Data: Labs: Laboratory Tests Test 09/01/20 23:12 Glucose (Fingerstick) 484 mg/dL (70-99) H Vital Signs: Vital Signs Date Time Temp Pulse Resp B/P (MAP) Pulse Ox O2 Delivery O2 Flow Rate FiO2 09/01/20 20:08 97.9 103 24 135/72 (93) 98 Room Air 97.9 EKG: EKG: [] Radiology/Procedures: Radiology/Procedures: [] Course & Med Decision Making: Course & Med Decision Making Pertinent Labs and Imaging studies reviewed. (See chart for details) [] Patient was evaluated for chief complaint. Work-up consisted of laboratory analysis. Results reviewed patient glucose greater than 400. Patient CO2 within normal limits. Patient urine without signs of urinary tract infection and no ketones present. Patient treated with 10 units of insulin and IV fluids. Patient complaining of bilateral flank pain--treated with Ultram. Patient received 2 L of fluid repeat blood sugar in the 200s patient will be discharged home with Ultram. Dragon Disclaimer: Amalia Disclaimer: This electronic medical record was generated, in whole or in part, using a voice recognition dictation system. Departure Departure Impression: Primary Impression: Hyperglycemia Additional Impression: Bilateral flank pain Disposition: 01 DC HOME SELF CARE/HOMELESS Condition: STABLE Referrals: JANET FULLER (PCP) Patient Instructions: Flank Pain, Hyperglycemia Scripts Tramadol Hcl (ULTRAM) 50 Mg Tablet 1 TAB PO PRN Q6HRS PRN for pain MDD 4 Tablet(s) for 7 Days, #28 TAB 0 Refills Prov: DARWIN GODFREY DO 09/02/20 DARWIN GODFREY DO Sep 01, 2020 23:32
[2020-09-01] MEDS ORDERED: IV NORMAL SALINE 1000ML BAG 1,000 ML IV ONE (23:45)
[2020-09-01] MEDS ORDERED: ACETAMINOPHEN 325 MG TABLET. PO ONE (23:45)
[2020-09-01 23:54] LABS: BILIRUBIN,URINE NEGATIVE (NEG); CLARITY,URINE CLEAR; COLOR,URINE YELLOW; NITRITE,URINE NEGATIVE (NEG); PROTEIN,URINE NEGATIVE (NEG-TRACE); UROBILINOGEN,URINE 0.2 mg/dL (0.2 mg/dL)
[2020-09-02 00:15] LABS: BACTERIA,URINE FEW /HPF (0-FEW)
[2020-09-02] MEDS ORDERED: INSULIN REGULAR 100 UNIT/ML 3ML VIAL. IV ONE (01:00)
[2020-09-02] MEDS ORDERED: traMADol 50 MG TABLET PO ONE (01:30)
[2020-09-02] MEDS ORDERED: IV NORMAL SALINE 1000ML BAG 1,000 ML IV ONE (02:00)
[2020-09-02 03:03] VITALS: BP 112/84
[2020-09-02] MEDS ORDERED: TRAM-48 PO (03:19)
== END 2020-09-02 03:25 | disposition home or self-care (01) ==
LOC: ER 19:56
DX: E11.65 Type 2 diabetes mellitus with hyperglycemia (principal); R10.9 Unspecified abdominal pain; F17.200 Nicotine dependence, unspecified, uncomplicated; Z79.4 Long term (current) use of insulin; Z88.1 Allergy status to other antibiotic agents; Z88.6 Allergy status to analgesic agent; Z91.013 Allergy to seafood
CPT/HCPCS: 36415; 80053; 81001; 82962; 87086; 96361; 96374; 99285; J1815; J7030

== ENCOUNTER 2020-12-10 19:36 | Emergency (ER) | payer BC ==
[~2020-12-10] VITALS: Ht 165.1 cm; Wt 84.0 kg
[~2020-12-10 19:36] MED LIST changes: +TRAM-48 PO
[2020-12-10 19:40] VITALS: BP 121/84
[2020-12-10 20:11] LABS: BILIRUBIN,URINE NEGATIVE (NEG); CLARITY,URINE CLEAR; COLOR,URINE YELLOW; NITRITE,URINE NEGATIVE (NEG); PH,URINE 5.5 (<5.0-8.0); PROTEIN,URINE NEGATIVE (NEG-TRACE); UROBILINOGEN,URINE 0.2 mg/dL (0.2 mg/dL)
[2020-12-10] MEDS ORDERED: IV NORMAL SALINE 1000ML BAG 1,000 ML IV ONE (20:15)
[2020-12-10] MEDS ORDERED: MORPHINE SULFATE 10 MG/ML VIAL. IV ONE (20:15)
[2020-12-10] MEDS ORDERED: ONDANSETRON PF 4 MG/2 ML VIAL. IVP ONE (20:15)
[2020-12-10 20:17] LABS: BACTERIA,URINE FEW /HPF (0-FEW); RBC,URINE TNTC /HPF (0-2); WBC,URINE OCC /HPF (0-4)
[2020-12-10 20:25] LABS: BASO # 0.1 x10^3/uL (0.0-0.2); BASO % 1 % (0-3); EOS # 0.1 x10^3/uL (0.0-0.7); EOS % 1 % (0-3); HEMATOCRIT 43.1 % (36.0-47.0); HEMOGLOBIN 14.6 g/dL (12.0-15.5); LYMPH # 2.7 x10^3/uL (1.0-4.8); LYMPH % 30 % (24-48); MEAN CORPUSCULAR HEMOGLOBIN 31 pg (25-35); MEAN CORPUSCULAR HGB CONC 34 g/dL (31-37); MEAN CORPUSCULAR VOLUME 90 fL (79-100); MONO # 0.6 x10^3/uL (0.0-1.1); MONO % 7 % (0-9); NEUT # 5.7 x10^3/uL (1.8-7.7); NEUT % 62 % (31-73); PLATELET COUNT 226 x10^3/uL (140-400); RED BLOOD COUNT 4.79 x10^6/uL (3.50-5.40); RED CELL DISTRIBUTION WIDTH 15.9 % (11.5-14.5); WHITE BLOOD COUNT 9.2 x10^3/uL (4.0-11.0)
[2020-12-10 20:57] LABS: CALCIUM 8.9 mg/dL (8.5-10.1); CREATININE 0.8 mg/dL (0.6-1.0); GFR 79.4; POTASSIUM 3.8 mmol/L (3.5-5.1)
[2020-12-10 21:03] LABS: ALBUMIN 3.5 g/dL (3.4-5.0); ALBUMIN/GLOBULIN RATIO 0.9 (1.0-1.7); MAGNESIUM 2.1 mg/dL (1.8-2.4); TOTAL BILIRUBIN 0.4 mg/dL (0.2-1.0); TOTAL PROTEIN 7.4 g/dL (6.4-8.2)
--- NOTE | 2020-12-10 21:48 | PHYS DOC ---
Past Medical History Past Medical History: Diabetes-Type I Additional Past Medical Histor: PHILLIPS, type 2 insulin dependent diabetic, hydranitis (ROXANN DEWITT HISTORY DEPARTMENT CHAIR) Past Surgical History: Other Additional Past Surgical Histo: NASAL SEPTAL (ROXANN DEWITT HISTORY DEPARTMENT CHAIR) Smoking Status: Current Every Day Smoker Alcohol Use: None Drug Use: None (ROXANN DEWITT HISTORY DEPARTMENT CHAIR) General Adult EDM: Chief Complaint: ABDOMINAL PAIN HPI: HPI: Patient is a 40 year old female with a history of diabetes type 1 who presents to the ED today complaining of a sharp constant 8 out of 10 left upper quadrant abdominal pain with nausea that began 3 days ago. Patient states she was seen by the PCP 3 days ago, had lab work done, she states she was told she has an elevated lipase of 493. She states she was asked to come to the ED today if symptoms continue. Denies any fever. (ROXANN DEWITT HISTORY DEPARTMENT CHAIR) Review of Systems: Review of Systems: Constitutional: Denies fever or chills. [] Eyes: Denies change in visual acuity. [] HENT: Denies nasal congestion or sore throat. [] Respiratory: Denies cough or shortness of breath. [] Cardiovascular: Denies chest pain or edema. [] GI: Reports left upper quadrant abdominal pain with nausea, denies vomiting, bloody stools or diarrhea. [] : Denies dysuria. [] Musculoskeletal: Denies back pain or joint pain. [] Integument: Denies rash. [] Neurologic: Denies headache, focal weakness or sensory changes. [] Psychiatric: Denies depression or anxiety. [] (ROXANN DEWITT HISTORY DEPARTMENT CHAIR) Heart Score: C/O Chest Pain: N/A Risk Factors: Risk Factors: DM, Current or recent (<one month) smoker, HTN, HLP, family history of CAD, obesity. Risk Scores: Score 0 - 3: 2.5% MACE over next 6 weeks - Discharge Home Score 4 - 6: 20.3% MACE over next 6 weeks - Admit for Clinical Observation Score 7 - 10: 72.7% MACE over next 6 weeks - Early Invasive Strategies (ROXANN EDWITT HISTORY DEPARTMENT CHAIR) Current Medications: Current Medications Medications (Trade) Dose Ordered Sig/Taqueria Start Time Stop Time Status Last Admin Dose Admin Hydromorphone HCl (Dilaudid) 1 mg 1X ONCE 4/12/21 22:00 12/10/20 22:01 Morphine Sulfate (Morphine Sulfate) 5 mg 1X ONCE 12/10/20 20:15 12/10/20 20:16 DC 12/10/20 20:26 5 MG Ondansetron HCl (Zofran) 4 mg 1X ONCE 12/10/20 20:15 12/10/20 20:16 DC 12/10/20 20:25 4 MG Sodium Chloride 1,000 ml @ 1,000 mls/hr 1X ONCE 12/10/20 20:15 12/10/20 21:14 DC 12/10/20 20:25 1,000 MLS/HR (MUTJESUSA,ROXANN M HISTORY DEPARTMENT CHAIR) Allergies: Allergies: Allergies Coded Allergies Type Severity Reaction Last Updated Verified ketorolac Allergy Severe rash 01/31/20 Yes levofloxacin Allergy Intermediate Rash 05/13/19 Yes shellfish derived Allergy Intermediate RASH/ITCH 09/15/19 Yes vancomycin Allergy Intermediate Rash 05/13/19 Yes (MUTJESUSAROXANN M HISTORY DEPARTMENT CHAIR) Physical Exam: PE: Constitutional: Well developed, well nourished, no acute distress, non-toxic appearance. [] HENT: Normocephalic, atraumatic, bilateral external ears normal, oropharynx moist, no oral exudates, nose normal. [] Eyes: PERRLA, EOMI, conjunctiva normal, no discharge. [] Neck: Normal range of motion, no tenderness, supple, no stridor. [] Cardiovascular:Heart rate regular rhythm, no murmur [] Lungs & Thorax: Bilateral breath sounds clear to auscultation [] Abdomen: Bowel sounds normal, soft, mild tenderness on palpation of the left upper quadrant, no masses, no pulsatile masses. [] Skin: Warm, dry, no erythema, no rash. [] Back: No tenderness, no CVA tenderness. [] Extremities: No tenderness, no cyanosis, no clubbing, ROM intact, no edema. [] Neurologic: Alert and oriented X 3, normal motor function, normal sensory function, no focal deficits noted. [] Psychologic: Affect normal, judgement normal, mood normal. [] (MUTUNGA,ROXANN M HISTORY DEPARTMENT CHAIR) Current Patient Data: Labs: Laboratory Tests Test 12/10/20 19:45 4/12/21 20:10 Urine Collection Type Unknown Urine Color Yellow Urine Clarity Clear Urine pH 5.5 (<5.0-8.0) Urine Specific [place] >=1.030 (1.000-1.030) Urine Protein Negative mg/dL (NEG-TRACE) Urine Glucose (UA) >=1000 mg/dL (NEG) Urine Ketones (Stick) Negative mg/dL (NEG) Urine Blood Large (NEG) Urine Nitrite Negative (NEG) Urine Bilirubin Negative (NEG) Urine Urobilinogen Dipstick 0.2 mg/dL (0.2 mg/dL) Urine Leukocyte Esterase Negative (NEG) Urine RBC Tntc /HPF (0-2) Urine WBC Occ /HPF (0-4) Urine Squamous Epithelial Cells Mod /LPF Urine Bacteria Few /HPF (0-FEW) Urine Mucus Slight /LPF White Blood Count 9.2 x10^3/uL (4.0-11.0) Red Blood Count 4.79 x10^6/uL (3.50-5.40) Hemoglobin 14.6 g/dL (12.0-15.5) Hematocrit 43.1 % (36.0-47.0) Mean Corpuscular Volume 90 fL (79-100) Mean Corpuscular Hemoglobin 31 pg (25-35) Mean Corpuscular Hemoglobin Concent 34 g/dL (31-37) Red Cell Distribution Width 15.9 % (11.5-14.5) H Platelet Count 226 x10^3/uL (140-400) Neutrophils (%) (Auto) 62 % (31-73) Lymphocytes (%) (Auto) 30 % (24-48) Monocytes (%) (Auto) 7 % (0-9) Eosinophils (%) (Auto) 1 % (0-3) Basophils (%) (Auto) 1 % (0-3) Neutrophils # (Auto) 5.7 x10^3/uL (1.8-7.7) Lymphocytes # (Auto) 2.7 x10^3/uL (1.0-4.8) Monocytes # (Auto) 0.6 x10^3/uL (0.0-1.1) Eosinophils # (Auto) 0.1 x10^3/uL (0.0-0.7) Basophils # (Auto) 0.1 x10^3/uL (0.0-0.2) Sodium Level 143 mmol/L (136-145) Potassium Level 3.8 mmol/L (3.5-5.1) Chloride Level 106 mmol/L (98-107) Carbon Dioxide Level 29 mmol/L (21-32) Anion Gap 8 (6-14) Blood Urea Nitrogen 4 mg/dL (7-20) L Creatinine 0.8 mg/dL (0.6-1.0) Estimated GFR (Cockcroft-Gault) 79.4 BUN/Creatinine Ratio 5 (6-20) L Glucose Level 201 mg/dL (70-99) H Calcium Level 8.9 mg/dL (8.5-10.1) Magnesium Level 2.1 mg/dL (1.8-2.4) Total Bilirubin 0.4 mg/dL (0.2-1.0) Aspartate Amino Transferase (AST) 39 U/L (15-37) H Alanine Aminotransferase (ALT) 75 U/L (14-59) H Alkaline Phosphatase 178 U/L (46-116) H Total Protein 7.4 g/dL (6.4-8.2) Albumin 3.5 g/dL (3.4-5.0) Albumin/Globulin Ratio 0.9 (1.0-1.7) L Lipase 167 U/L (73-393) Laboratory Tests 12/10/20 20:10 Laboratory Tests 12/10/20 20:10 Vital Signs: Vital Signs Date Time Temp Pulse Resp B/P (MAP) Pulse Ox O2 Delivery O2 Flow Rate FiO2 12/10/20 19:40 98.2 70 20 121/84 (96) 98 Room Air 98.2 (ROXANN DEWITT APRN) EKG: EKG: [] (ROXANN DEWITT HISTORY DEPARTMENT CHAIR) Radiology/Procedures: Radiology/Procedures: [] (ROXANN DEWITT APRN) Course & Med Decision Making: Course & Med Decision Making Pertinent Labs and Imaging studies reviewed. (See chart for details) This is a 40-year-old female patient well-known to this ED presenting today with left upper quadrant abdominal pain with nausea, symptoms began 3 days ago. Was apparently seen by the PCP 3 days ago and had lipase of 493. Lipase in the ED is normal. CBC with no acute findings, glucose 201 with a normal anion gap, AST 39, ALT 75, ALK 178. Patient has no right upper quadrant pain. Pain is well controlled in the ED. Discharge to home. Follow-up with PCP. (ROXANN DEWITT APRN) Amalia Disclaimer: Amalia Disclaimer: This electronic medical record was generated, in whole or in part, using a voice recognition dictation system. (ROXANN DEWITT APRN) Departure Departure Impression: Primary Impression: Left upper quadrant pain Additional Impression: Transaminasemia Disposition: HOME / SELF CARE / HOMELESS Condition: STABLE Referrals: JANET FULLER (PCP) follow up in the course of this week Patient Instructions: Abdominal Pain (Nonspecific) Additional Instructions: You were evaluated in the emergency room for abdominal pain, your lipase is normal today. Please follow-up with your primary care doctor and heat and frost insulator in the course of this week. Attending Signature Attending Signature I have reviewed the PA/INTERNET SECURITY SPECIALIST's note and plan of care. I was available for consultation as needed during the patient's visit in the emergency department. I agree with the clinical impression, plan, and disposition. (ANA FULLER DO) ROXANN DEWITT APRN Dec 10, 2020 21:47 ANA FULLER DO Dec 11, 2020 06:33
[2020-12-10] MEDS ORDERED: HYDROmorphone 2 MG/ML VIAL IVP ONE (22:00)
== END 2020-12-10 22:29 | disposition home or self-care (01) ==
LOC: ER 19:36
DX: R10.12 Left upper quadrant pain (principal); R74.01 Elevation of levels of liver transaminase levels; E10.9 Type 1 diabetes mellitus without complications; F17.200 Nicotine dependence, unspecified, uncomplicated; Z98.890 Other specified postprocedural states; Z91.013 Allergy to seafood; Z88.1 Allergy status to other antibiotic agents; Z88.8 Allergy status to other drugs, medicaments and biological substances
CPT/HCPCS: 36415; 80053; 81001; 83690; 83735; 85025; 96361; 96374; 96375; 99284; J1170; J2270; J2405; J7030

== ENCOUNTER 2020-12-14 21:57 | Observation (INO) | payer BC ==
[~2020-12-14] VITALS: Ht 165.1 cm; Wt 86.0 kg
[2020-12-14] MEDS ORDERED: IV NORMAL SALINE 1000ML BAG 1,000 ML IV SCH (23:00)
[2020-12-14 23:13] LABS: BILIRUBIN,URINE NEGATIVE (NEG); CLARITY,URINE CLOUDY; COLOR,URINE YELLOW; NITRITE,URINE NEGATIVE (NEG); PH,URINE 5.5 (<5.0-8.0); PROTEIN,URINE NEGATIVE (NEG-TRACE); UROBILINOGEN,URINE 0.2 mg/dL (0.2 mg/dL)
[2020-12-14 23:20] LABS: BACTERIA,URINE 0 /HPF (0-FEW); RBC,URINE >40 /HPF (0-2)
[2020-12-14 23:43] LABS: BASO # 0.1 x10^3/uL (0.0-0.2); BASO % 1 % (0-3); EOS # 0.1 x10^3/uL (0.0-0.7); EOS % 1 % (0-3); HEMATOCRIT 44.7 % (36.0-47.0); HEMOGLOBIN 15.4 g/dL (12.0-15.5); LYMPH # 3.5 x10^3/uL (1.0-4.8); LYMPH % 24 % (24-48); MEAN CORPUSCULAR HEMOGLOBIN 30 pg (25-35); MEAN CORPUSCULAR HGB CONC 34 g/dL (31-37); MEAN CORPUSCULAR VOLUME 88 fL (79-100); MONO # 0.9 x10^3/uL (0.0-1.1); MONO % 6 % (0-9); NEUT # 9.8 x10^3/uL (1.8-7.7); NEUT % 68 % (31-73); PLATELET COUNT 325 x10^3/uL (140-400); RED BLOOD COUNT 5.09 x10^6/uL (3.50-5.40); WHITE BLOOD COUNT 14.4 x10^3/uL (4.0-11.0)
[2020-12-14 23:59] LABS: ALBUMIN 3.9 g/dL (3.4-5.0); CALCIUM 9.9 mg/dL (8.5-10.1); CREATININE 0.8 mg/dL (0.6-1.0); GFR 79.4; TOTAL BILIRUBIN 0.4 mg/dL (0.2-1.0); TOTAL PROTEIN 7.7 g/dL (6.4-8.2)
[2020-12-15] MEDS ORDERED: ONDANSETRON PF 4 MG/2 ML VIAL. IVP ONE
[2020-12-15 00:01] LABS: POTASSIUM 2.9 mmol/L (3.5-5.1)
[2020-12-15] MEDS ORDERED: MORPHINE SULFATE 4 MG/ML VIAL. IV ONE ×2 (00:15→02:30)
[2020-12-15] MEDS ORDERED: DEXTROSE 50% 25 GM / 50ML DISP.SYRIN. IV ONE (00:30)
--- NOTE | 2020-12-15 00:48 | RAD ---
CT SCAN OF THE ABDOMEN AND PELVIS WITH IV CONTRAST. History: Reason: ABDOMINAL PAIN / Spl. Instructions: / History: Comparison:February 18, 2020. Procedure: Contiguous axial images of the abdomen and pelvis were performed after the administration of 75 cc o f Isovue 370 IV contrast. Oral contrast: No. Findings: There has been prior cholecystectomy. The appendix is normal. Liver: Unremarkable Spleen: Unremarkable Pancreas: Unremarkable Adrenal Glands: Unremarkable Kidneys: Unremarkable There is no mass or lymphadenopathy. There is no free air. There is no free fluid. The urinary bladder appears normal. Impression: No acute findings. PQRS Compliance Statement: One or more of the following individualized dose reduction techniques were utilized for this examinat ion: 1. Automated exposure control 2. Adjustment of the mA and/or kV according to patient size 3. Use of iterative reconstruction technique out Electronically signed by: Jozef Curiel III, MD (12/15/2020 12:46 AM) [facility]
--- NOTE | 2020-12-15 01:35 | PHYS DOC ---
Past Medical History Past Medical History: Diabetes-Type I Additional Past Medical Histor: PHILLIPS, type 2 insulin dependent diabetic, hydranitis Past Surgical History: Cholecystectomy, Hysterectomy, Tonsillectomy, Other Additional Past Surgical Histo: NASAL SEPTAL Smoking Status: Current Every Day Smoker Alcohol Use: None Drug Use: None Adult General Chief Complaint Chief Complaint: HYPOGLYCEMIA HPI HPI Patient is a 40 year old female with known past medical history of diabetes presents emergency department for low blood sugar. Patient states that over the last 24 hours she has been feeling grossly weak. States that her blood glucometer at home was reading a low blood sugar of 45. Patient states that she recently had many teeth removed and is having difficulty eating. States she has not been taking her home insulin but has also had decreased appetite and difficulty eating. Denies any fever, chills, nausea, vomiting, chest pain or abdominal pain. Review of Systems Review of Systems Constitutional: Denies fever or chills [] Eyes: Denies change in visual acuity, redness, or eye pain [] HENT: Denies nasal congestion or sore throat [] Respiratory: Denies cough or shortness of breath [] Cardiovascular: No additional information not addressed in HPI [] GI: Denies abdominal pain, nausea, vomiting, bloody stools or diarrhea [] : Denies dysuria or hematuria [] Musculoskeletal: Denies back pain or joint pain [] Integument: Denies rash or skin lesions [] Neurologic: Denies headache, focal weakness or sensory changes [] Endocrine: Denies polyuria or polydipsia [] All other systems were reviewed and found to be within normal limits, except as documented in this note. Current Medications Current Medications Current Medications Medications (Trade) Dose Ordered Sig/Taqueria Start Time Stop Time Status Last Admin Dose Admin Dextrose (Dextrose 50%-Water Syringe) 25 gm 1X ONCE 12/15/20 00:30 12/15/20 00:31 DC 12/15/20 00:43 25 GM Morphine Sulfate (Morphine Sulfate) 4 mg 1X ONCE 12/15/20 02:30 12/15/20 02:31 DC 12/15/20 02:43 4 MG Ondansetron HCl (Zofran) 4 mg 1X ONCE 12/15/20 00:00 12/15/20 00:01 DC 12/15/20 00:23 4 MG Sodium Chloride 1,000 ml @ 1,000 mls/hr Q1H 12/14/20 23:00 12/14/20 23:59 DC 12/14/20 23:40 1,000 MLS/HR Allergies Allergies Allergies Coded Allergies Type Severity Reaction Last Updated Verified ketorolac Allergy Severe rash 01/31/20 Yes levofloxacin Allergy Intermediate Rash 05/13/19 Yes shellfish derived Allergy Intermediate RASH/ITCH 09/15/19 Yes vancomycin Allergy Intermediate Rash 05/13/19 Yes Physical Exam Physical Exam Constitutional: Well developed, well nourished, no acute distress, non-toxic appearance. [] HENT: Normocephalic, atraumatic, bilateral external ears normal, oropharynx mois t, no oral exudates, nose normal. [] Eyes: PERRLA, EOMI, conjunctiva normal, no discharge. [] Neck: Normal range of motion, no tenderness, supple, no stridor. [] Cardiovascular:Heart rate regular rhythm, no murmur [] Lungs & Thorax: Bilateral breath sounds clear to auscultation [] Abdomen: Bowel sounds normal, soft, no tenderness, no masses, no pulsatile masses. [] Skin: Warm, dry, no erythema, no rash. [] Back: No tenderness, no CVA tenderness. [] Extremities: No tenderness, no cyanosis, no clubbing, ROM intact, no edema. [] Neurologic: Alert and oriented X 3, normal motor function, normal sensory function, no focal deficits noted. [] Psychologic: Affect normal, judgement normal, mood normal. [] Current Patient Data Vital Signs Vital Signs Date Time Temp Pulse Resp B/P (MAP) Pulse Ox O2 Delivery O2 Flow Rate FiO2 12/15/20 02:43 96 Room Air 12/14/20 22:38 98.4 103 20 127/77 (94) 98.4 Lab Values Laboratory Tests Test 12/14/20 22:15 12/14/20 23:07 12/14/20 23:30 12/15/20 01:37 Urine Collection Type Void Urine Color Yellow Urine Clarity Cloudy Urine pH 5.5 (<5.0-8.0) Urine Specific [place] >=1.030 (1.000-1.030) Urine Protein Negative mg/dL (NEG-TRACE) Urine Glucose (UA) >=1000 mg/dL (NEG) Urine Ketones (Stick) Negative mg/dL (NEG) Urine Blood Large (NEG) Urine Nitrite Negative (NEG) Urine Bilirubin Negative (NEG) Urine Urobilinogen Dipstick 0.2 mg/dL (0.2 mg/dL) Urine Leukocyte Esterase Negative (NEG) Urine RBC >40 /HPF (0-2) Urine WBC 1-4 /HPF (0-4) Urine Squamous Epithelial Cells Few /LPF Urine Bacteria 0 /HPF (0-FEW) Urine Mucus Slight /LPF POC Urine HCG, Qualitative Hcg negative (Negative) White Blood Count 14.4 x10^3/uL (4.0-11.0) H Red Blood Count 5.09 x10^6/uL (3.50-5.40) Hemoglobin 15.4 g/dL (12.0-15.5) Hematocrit 44.7 % (36.0-47.0) Mean Corpuscular Volume 88 fL (79-100) Mean Corpuscular Hemoglobin 30 pg (25-35) Mean Corpuscular Hemoglobin Concent 34 g/dL (31-37) Red Cell Distribution Width 16.0 % (11.5-14.5) H Platelet Count 325 x10^3/uL (140-400) Neutrophils (%) (Auto) 68 % (31-73) Lymphocytes (%) (Auto) 24 % (24-48) Monocytes (%) (Auto) 6 % (0-9) Eosinophils (%) (Auto) 1 % (0-3) Basophils (%) (Auto) 1 % (0-3) Neutrophils # (Auto) 9.8 x10^3/uL (1.8-7.7) H Lymphocytes # (Auto) 3.5 x10^3/uL (1.0-4.8) Monocytes # (Auto) 0.9 x10^3/uL (0.0-1.1) Eosinophils # (Auto) 0.1 x10^3/uL (0.0-0.7) Basophils # (Auto) 0.1 x10^3/uL (0.0-0.2) Sodium Level 144 mmol/L (136-145) Potassium Level 2.9 mmol/L (3.5-5.1) *L Chloride Level 106 mmol/L (98-107) Carbon Dioxide Level 31 mmol/L (21-32) Anion Gap 7 (6-14) Blood Urea Nitrogen 13 mg/dL (7-20) Creatinine 0.8 mg/dL (0.6-1.0) Estimated GFR (Cockcroft-Gault) 79.4 BUN/Creatinine Ratio 16 (6-20) Glucose Level 46 mg/dL (70-99) L Calcium Level 9.9 mg/dL (8.5-10.1) Total Bilirubin 0.4 mg/dL (0.2-1.0) Aspartate Amino Transferase (AST) 67 U/L (15-37) H Alanine Aminotransferase (ALT) 93 U/L (14-59) H Alkaline Phosphatase 134 U/L (46-116) H Creatine Kinase 59 U/L (26-192) Total Protein 7.7 g/dL (6.4-8.2) Albumin 3.9 g/dL (3.4-5.0) Albumin/Globulin Ratio 1.0 (1.0-1.7) Lipase 113 U/L (73-393) Glucose (Fingerstick) 97 mg/dL (70-99) Test 12/15/20 02:51 Glucose (Fingerstick) 63 mg/dL (70-99) L Laboratory Tests 12/14/20 23:30 Laboratory Tests 12/14/20 23:30 EKG EKG [] Radiology/Procedures Radiology/Procedures CT SCAN OF THE ABDOMEN AND PELVIS WITH IV CONTRAST. History: Reason: ABDOMINAL PAIN / Spl. Instructions: / History: Comparison:February 18, 2020. Procedure: Contiguous axial images of the abdomen and pelvis were performed after the administration of 75 cc of Isovue 370 IV contrast. Oral contrast: No. Findings: There has been prior cholecystectomy. The appendix is normal. Liver: Unremarkable Spleen: Unremarkable Pancreas: Unremarkable Adrenal Glands: Unremarkable Kidneys: Unremarkable There is no mass or lymphadenopathy. There is no free air. There is no free fluid. The urinary bladder appears normal. Impression: No acute findings. PQRS Compliance Statement: One or more of the following individualized dose reduction techniques were utilized for this examination: 1. Automated exposure control 2. Adjustment of the mA and/or kV according to patient size 3. Use of iterative reconstruction technique out Electronically signed by: Jozef Curiel III, MD (12/15/2020 12:46 AM) [facility] Course & Med Decision Making Course & Med Decision Making Pertinent Labs and Imaging studies reviewed. (See chart for details) 40F presenting with acute hyperglycemia uncertain etiology especially as the patient is on insulin. Will obtain labs to ensure there is no other significant underlying etiology that we can determine, give patient juice and D50 and reevaluate. 0254 -patient with persistent hypoglycemia for unknown reason. At this time no clear indication but still significant hyperglycemia despite getting IV dextrose and food. At this time will admit the patient and start on D5 half-normal sali naldo Holland Disclaimer Draganshul Disclaimer This electronic medical record was generated, in whole or in part, using a voice recognition dictation system. Departure Departure Impression: Primary Impression: Hypoglycemia Disposition: ADMITTED INPATIENT Condition: STABLE Referrals: JANET FULLER-Frederic (PCP) URBANO MASCORRO MD Dec 15, 2020 01:35
[2020-12-15] MEDS ORDERED: ONDANSETRON PF 4 MG/2 ML VIAL. IV PRN (03:00)
[2020-12-15] MEDS ORDERED: IV DEXTROSE 5 %-0.45 % NACL 1,000 ML IV ONE (03:00)
[2020-12-15 04:38] VITALS: BP 102/67
[2020-12-15] MEDS ORDERED: QUET400T4 PO (05:00)
[2020-12-15] MEDS ORDERED: BUPR200T2 PO (05:00)
[2020-12-15] MEDS ORDERED: EMPA25TA PO (05:06)
[2020-12-15] MEDS ORDERED: traMADol 50 MG TABLET PO PRN (06:00)
[2020-12-15] MEDS ORDERED: POTASSIUM BICARB 20 MEQ EFFERVESCENT TABLET. PO ONE (06:00)
[2020-12-15] MEDS: MORPHINE SULFATE 2 MG/ML VIAL. IV PRN ×3 (06:12→15:46)
[2020-12-15] MEDS ORDERED: POTASSIUM CL 40MEQ D5-0.45NACL 1,000 ML IV SCH (06:30)
[2020-12-15 07:00] VITALS: BP 84/50
--- NOTE | 2020-12-15 07:39 | PDOC1 ---
History and Physical Date of Admission Date of Admission DATE: 12/15/20 TIME: 07:38 Identification/Chief Complaint Chief Complaint Low blood sugar Source Source: Chart review, Patient History of Present Illness History of Present Illness Patient is a 40-year-old female with past medical history of type 2 diabetes who presents to the ER with complaints of low blood sugar. She reports associated symptoms of weakness. Reportedly her home blood glucose monitor nurse report blood sugars at 45. She recently had several teeth removed and has been having some difficulty eating. She has not been taking her home insulin due to difficulty eating. In the ED she was given juice and D50, blood glucose continues to be persistently low. Upon chart review, shows multiple previous admissions for hypoglycemia in the past. I suspect she will need further diabetic education upon discharge. Will admit patient for observation. Past Medical History Cardiovascular: HTN GI: GERD Psych: Anxiety, Depression Endocrine: Diabetes Past Surgical History Past Surgical History: Cholecystectomy, Hysterectomy Family History Family History: Diabetes, Hypertension Social History Smoke: 1 pack per day ALCOHOL: none Drugs: None Current Medications Current Medications Current Medications Sodium Chloride 1,000 ml @ 1,000 mls/hr Q1H IV Last administered on 12/14/20at 23:40; Start 12/14/20 at 23:00; Stop 12/14/20 at 23:59; Status DC Ondansetron HCl (Zofran) 4 mg 1X ONCE IVP Last administered on 12/15/20at 00:23; Start 12/15/20 at 00:00; Stop 12/15/20 at 00:01; Status DC Morphine Sulfate (Morphine Sulfate) 4 mg 1X ONCE IV Last administered on 12/15/20at 00:24; Start 12/15/20 at 00:15; Stop 12/15/20 at 00:16; Status DC Dextrose (Dextrose 50%-Water Syringe) 25 gm 1X ONCE IV Last administered on 12/15/20at 00:43; Start 12/15/20 at 00:30; Stop 12/15/20 at 00:31; Status DC Morphine Sulfate (Morphine Sulfate) 4 mg 1X ONCE IV Last administered on 12/15/20at 02:43; Start 12/15/20 at 02:30; Stop 12/15/20 at 02:31; Status DC Dextrose/Sodium Chloride 1,000 ml @ 100 mls/hr 1X ONCE IV Last administered on 12/15/20at 03:20; Start 12/15/20 at 03:00; Stop 12/15/20 at 12:59 Ondansetron HCl (Zofran) 4 mg PRN Q8HRS PRN IV NAUSEA/VOMITING; Start 12/15/20 at 03:00; Stop 12/16/20 at 02:59 Morphine Sulfate (Morphine Sulfate) 2 mg PRN Q4HRS PRN IV PAIN Last administered on 12/15/20at 06:12; Start 12/15/20 at 06:00 Tramadol HCl (Ultram) 50 mg PRN Q6HRS PRN PO PAIN; Start 12/15/20 at 06:00 Potassium Bicarbonate (Potassium Effervescent Tablet) 40 meq 1X ONCE PO Last administered on 12/15/20at 06:12; Start 12/15/20 at 06:00; Stop 12/15/20 at 06:01; Status DC Potassium Chloride/Water 100 ml @ 100 mls/hr Q1H IV ; Start 12/15/20 at 06:00; Stop 12/15/20 at 07:59 Potassium Chloride/Dextrose/ Sod Cl 1,000 ml @ 80 mls/hr [id number] IV ; Start 12/15/20 at 06:30; Stop 12/15/20 at 18:59 Active Scripts Active Ondansetron Odt (Ondansetron) 4 Mg Tab.rapdis 1 Tab PO PRN Q6-8HRS PRN Lantus Solostar (Insulin Glargine,Hum.rec.anlog) 100 Unit/1 Ml Insuln.pen 65 Unit SQ BID 30 Days Humalog (Insulin Lispro) 100 Unit/1 Ml Vial 38 Unit SQ TIDWMEALS 30 Days Reported Jardiance (Empagliflozin) 25 Mg Tablet 50 Mg PO DAILY Seroquel (Quetiapine Fumarate) 400 Mg Tablet 1 Tab PO QHS Wellbutrin Sr (Bupropion Hcl) 200 Mg Tablet.er 200 Mg PO DAILY Xanax (Alprazolam) 2 Mg Tablet 2 Mg PO PRN TID PRN Desvenlafaxine Er (Desvenlafaxine) 100 Mg Tab.er.24h 1 Tab PO DAILY 30 Days Gabapentin (Gabapentin) 300 Mg Capsule 300 Mg PO PRN QHS PRN Protonix (Pantoprazole Sodium) 20 Mg Tablet.dr 40 Mg PO DAILY Allergies Allergies: Coded Allergies: ketorolac (Verified Allergy, Severe, rash, 01/31/20) levofloxacin (Verified Allergy, Intermediate, Rash, 05/13/19) shellfish derived (Verified Allergy, Intermediate, RASH/ITCH, 09/15/19) vancomycin (Verified Allergy, Intermediate, Rash, 05/13/19) ROS Review of System GENERAL: Hypoglycemia. No history of weight change, weakness or fevers. SKIN: No bruising, hair changes or rashes. EYES: No blurred, double or loss of vision. NOSE AND THROAT: No history of nosebleeds, hoarseness or sore throat. HEART: Denies chest pain, denies palpitations. LUNGS: Denies cough, hemoptysis, wheezing or shortness of breath. GASTROINTESTINAL: Denies nausea, vomiting, abdominal pain. GENITOURINARY: Denies dysuria, frequency, urgency, hematuria. NEUROLOGIC: Denies history of numbness, tingling, tremor or weakness. PSYCHIATRIC: Denies anxiety, denies depression. ENDOCRINE: No history of heat or cold intolerance, polyuria or polydipsia. EXTREMITIES: Denies muscle weakness, joint pain, pain on walking or stiffness. Physical Exam Physical Exam General: Alert, Oriented X3, Cooperative, No acute distress. Obese. HEENT: PERRLA, EOMI Lungs: Clear to auscultation, Normal air movement Heart: RRR, no murmurs Cardiovascular: S1, S2 Abdomen: Normal bowel sounds, Soft, No tenderness Extremities: No clubbing, No cyanosis Skin: No rashes, No significant lesion Neuro: Normal speech, Normal tone, Sensation intact Psych/Mental Status: Mental status NL, Mood NL Vitals Vitals Vital Signs Date Time Temp Pulse Resp B/P (MAP) Pulse Ox O2 Delivery O2 Flow Rate FiO2 12/15/20 06:12 20 Room Air 12/15/20 04:38 98.0 85 102/67 (79) 96 98.0 Labs Labs Laboratory Tests Test 12/14/20 22:15 12/14/20 22:54 12/14/20 23:07 12/14/20 23:30 Urine Collection Type Void Urine Color Yellow Urine Clarity Cloudy Urine pH 5.5 (<5.0-8.0) Urine Specific [place] >=1.030 (1.000-1.030) Urine Protein Negative mg/dL (NEG-TRACE) Urine Glucose (UA) >=1000 mg/dL (NEG) Urine Ketones (Stick) Negative mg/dL (NEG) Urine Blood Large (NEG) Urine Nitrite Negative (NEG) Urine Bilirubin Negative (NEG) Urine Urobilinogen Dipstick 0.2 mg/dL (0.2 mg/dL) Urine Leukocyte Esterase Negative (NEG) Urine RBC >40 /HPF (0-2) Urine WBC 1-4 /HPF (0-4) Urine Squamous Epithelial Cells Few /LPF Urine Bacteria 0 /HPF (0-FEW) Urine Mucus Slight /LPF Magnesium Level 1.8 mg/dL (1.8-2.4) Bedside Urine HCG, Qualitative Hcg negative (Negative) White Blood Count 14.4 x10^3/uL (4.0-11.0) Red Blood Count 5.09 x10^6/uL (3.50-5.40) Hemoglobin 15.4 g/dL (12.0-15.5) Hematocrit 44.7 % (36.0-47.0) Mean Corpuscular Volume 88 fL (79-100) Mean Corpuscular Hemoglobin 30 pg (25-35) Mean Corpuscular Hemoglobin Concent 34 g/dL (31-37) Red Cell Distribution Width 16.0 % (11.5-14.5) Platelet Count 325 x10^3/uL (140-400) Neutrophils (%) (Auto) 68 % (31-73) Lymphocytes (%) (Auto) 24 % (24-48) Monocytes (%) (Auto) 6 % (0-9) Eosinophils (%) (Auto) 1 % (0-3) Basophils (%) (Auto) 1 % (0-3) Neutrophils # (Auto) 9.8 x10^3/uL (1.8-7.7) Lymphocytes # (Auto) 3.5 x10^3/uL (1.0-4.8) Monocytes # (Auto) 0.9 x10^3/uL (0.0-1.1) Eosinophils # (Auto) 0.1 x10^3/uL (0.0-0.7) Basophils # (Auto) 0.1 x10^3/uL (0.0-0.2) Sodium Level 144 mmol/L (136-145) Potassium Level 2.9 mmol/L (3.5-5.1) Chloride Level 106 mmol/L (98-107) Carbon Dioxide Level 31 mmol/L (21-32) Anion Gap 7 (6-14) Blood Urea Nitrogen 13 mg/dL (7-20) Creatinine 0.8 mg/dL (0.6-1.0) Estimated GFR (Cockcroft-Gault) 79.4 BUN/Creatinine Ratio 16 (6-20) Glucose Level 46 mg/dL (70-99) Calcium Level 9.9 mg/dL (8.5-10.1) Total Bilirubin 0.4 mg/dL (0.2-1.0) Aspartate Amino Transf (AST/SGOT) 67 U/L (15-37) Alanine Aminotransferase (ALT/SGPT) 93 U/L (14-59) Alkaline Phosphatase 134 U/L (46-116) Creatine Kinase 59 U/L (26-192) Total Protein 7.7 g/dL (6.4-8.2) Albumin 3.9 g/dL (3.4-5.0) Albumin/Globulin Ratio 1.0 (1.0-1.7) Lipase 113 U/L (73-393) Test 12/15/20 01:37 12/15/20 02:51 Glucose (Fingerstick) 97 mg/dL (70-99) 63 mg/dL (70-99) Laboratory Tests Test 12/14/20 22:15 12/14/20 22:54 12/14/20 23:07 12/14/20 23:30 Urine Collection Type Void Urine Color Yellow Urine Clarity Cloudy Urine pH 5.5 (<5.0-8.0) Urine Specific [place] >=1.030 (1.000-1.030) Urine Protein Negative mg/dL (NEG-TRACE) Urine Glucose (UA) >=1000 mg/dL (NEG) Urine Ketones (Stick) Negative mg/dL (NEG) Urine Blood Large (NEG) Urine Nitrite Negative (NEG) Urine Bilirubin Negative (NEG) Urine Urobilinogen Dipstick 0.2 mg/dL (0.2 mg/dL) Urine Leukocyte Esterase Negative (NEG) Urine RBC >40 /HPF (0-2) Urine WBC 1-4 /HPF (0-4) Urine Squamous Epithelial Cells Few /LPF Urine Bacteria 0 /HPF (0-FEW) Urine Mucus Slight /LPF Magnesium Level 1.8 mg/dL (1.8-2.4) Bedside Urine HCG, Qualitative Hcg negative (Negative) White Blood Count 14.4 x10^3/uL (4.0-11.0) Red Blood Count 5.09 x10^6/uL (3.50-5.40) Hemoglobin 15.4 g/dL (12.0-15.5) Hematocrit 44.7 % (36.0-47.0) Mean Corpuscular Volume 88 fL (79-100) Mean Corpuscular Hemoglobin 30 pg (25-35) Mean Corpuscular Hemoglobin Concent 34 g/dL (31-37) Red Cell Distribution Width 16.0 % (11.5-14.5) Platelet Count 325 x10^3/uL (140-400) Neutrophils (%) (Auto) 68 % (31-73) Lymphocytes (%) (Auto) 24 % (24-48) Monocytes (%) (Auto) 6 % (0-9) Eosinophils (%) (Auto) 1 % (0-3) Basophils (%) (Auto) 1 % (0-3) Neutrophils # (Auto) 9.8 x10^3/uL (1.8-7.7) Lymphocytes # (Auto) 3.5 x10^3/uL (1.0-4.8) Monocytes # (Auto) 0.9 x10^3/uL (0.0-1.1) Eosinophils # (Auto) 0.1 x10^3/uL (0.0-0.7) Basophils # (Auto) 0.1 x10^3/uL (0.0-0.2) Sodium Level 144 mmol/L (136-145) Potassium Level 2.9 mmol/L (3.5-5.1) Chloride Level 106 mmol/L (98-107) Carbon Dioxide Level 31 mmol/L (21-32) Anion Gap 7 (6-14) Blood Urea Nitrogen 13 mg/dL (7-20) Creatinine 0.8 mg/dL (0.6-1.0) Estimated GFR (Cockcroft-Gault) 79.4 BUN/Creatinine Ratio 16 (6-20) Glucose Level 46 mg/dL (70-99) Calcium Level 9.9 mg/dL (8.5-10.1) Total Bilirubin 0.4 mg/dL (0.2-1.0) Aspartate Amino Transf (AST/SGOT) 67 U/L (15-37) Alanine Aminotransferase (ALT/SGPT) 93 U/L (14-59) Alkaline Phosphatase 134 U/L (46-116) Creatine Kinase 59 U/L (26-192) Total Protein 7.7 g/dL (6.4-8.2) Albumin 3.9 g/dL (3.4-5.0) Albumin/Globulin Ratio 1.0 (1.0-1.7) Lipase 113 U/L (73-393) Test 12/15/20 01:37 12/15/20 02:51 Glucose (Fingerstick) 97 mg/dL (70-99) 63 mg/dL (70-99) Images Images CT ABDOMEN PELVIS WO CONTRAST CT SCAN OF THE ABDOMEN AND PELVIS WITH IV CONTRAST. History: Reason: ABDOMINAL PAIN / Spl. Instructions: / History: Comparison:February 18, 2020. Procedure: Contiguous axial images of the abdomen and pelvis were performed after the administration of 75 cc of Isovue 370 IV contrast. Oral contrast: No. Findings: There has been prior cholecystectomy. The appendix is normal. Liver: Unremarkable Spleen: Unremarkable Pancreas: Unremarkable Adrenal Glands: Unremarkable Kidneys: Unremarkable There is no mass or lymphadenopathy. There is no free air. There is no free fluid. The urinary bladder appears normal. Impression: No acute findings. VTE Prophylaxis Ordered VTE Prophylaxis Devices: No VTE Pharmacological Prophylaxi: Yes Assessment/Plan Assessment/Plan Hypoglycemia Hypokalemia Transaminitis DM2 Plan: Suspect patient inappropriately taking her home insulin; on glargine 65 units twice daily which is contributing to persistent hypoglycemia given extended half-life. Continue to monitor insulin and replace as needed Hypokalemia secondary to insulin use Blood glucose 135 at the time of evaluation Resume remaining home medications FEN - ADA diet PPX - Heparin FULL CODE Dispo - will discharge home with self-care Justifications for Admission Other Justification CHRIS DE LA GARZA MD Dec 15, 2020 07:39
[2020-12-15] MEDS ORDERED: IV DEXTROSE 5% 250 ML BAG. IV PRN (08:00)
[2020-12-15] MEDS ORDERED: DEXTROSE 50% 25 GM / 50ML DISP.SYRIN. IV PRN (08:00)
[2020-12-15] MEDS ORDERED: MAG HYDROX/ALUMINUM HYD/SIMETH 30 ML ORAL.SUSP PO PRN (08:00)
[2020-12-15] MEDS ORDERED: GABAPENTIN 300 MG CAPSULE. PO PRN (08:00)
[2020-12-15] MEDS ORDERED: ACETAMINOPHEN 325 MG TABLET. PO PRN (08:00)
[2020-12-15] MEDS ORDERED: BISACODYL 10 MG SUPP.RECT. PR PRN (08:00)
[2020-12-15] MEDS ORDERED: MAGNESIUM HYDROXIDE 2,400 MG/30 ML ORAL.SUSP. PO PRN (08:00)
[2020-12-15] MEDS ORDERED: ENOXAPARIN 40 MG/0.4 ML SYRINGE. SQ SCH (08:00)
[2020-12-15] MEDS ORDERED: ONDANSETRON PF 4 MG/2 ML VIAL. IVP PRN (08:00)
[2020-12-15] MEDS ORDERED: ZOLPIDEM 5 MG TABLET. PO PRN (08:00)
[2020-12-15] MEDS ORDERED: CALCIUM CARBONATE 500 MG TAB.CHEW PO PRN (08:00)
[2020-12-15] MEDS: POTASSIUM CHLORIDE 10MEQ 100 ML IV SCH ×2 (08:09→11:16)
[2020-12-15] MEDS ORDERED: ALPRAZolam 1 MG TABLET PO PRN (08:15)
[2020-12-15] MEDS ORDERED: QUEtiapine 300 MG TAB.ER.24H. PO SCH ×2 (09:00→21:00)
[2020-12-15] MEDS ORDERED: DESVENLAFAXINE 25 MG TAB.ER.24H PO SCH (09:00)
[2020-12-15] MEDS ORDERED: buPROPion SR 100 MG TABLET.SA. PO SCH (09:00)
[2020-12-15 11:00] VITALS: BP 95/55
[2020-12-15] MEDS ORDERED: INSU100V6 SQ (14:21)
[2020-12-15] MEDS ORDERED: INSU100I13 SQ (14:21)
--- NOTE | 2020-12-15 14:24 | PDOC3 ---
Discharge Summary Visit Information Date of Admission: Dec 15, 2020 Date of Discharge: Dec 15, 2020 Brief Hospital Course Allergies Allergies Coded Allergies Type Severity Reaction Last Updated Verified ketorolac Allergy Severe rash 01/31/20 Yes levofloxacin Allergy Intermediate Rash 05/13/19 Yes shellfish derived Allergy Intermediate RASH/ITCH 09/15/19 Yes vancomycin Allergy Intermediate Rash 05/13/19 Yes Vital Signs Vital Signs Date Time Temp Pulse Resp B/P (MAP) Pulse Ox O2 Delivery O2 Flow Rate FiO2 12/15/20 11:45 18 Room Air 12/15/20 11:00 97.7 66 95/55 (68) 98 97.7 Lab Results Laboratory Tests Test 12/14/20 22:15 12/14/20 22:54 12/14/20 23:07 12/14/20 23:30 Urine Collection Type Void Urine Color Yellow Urine Clarity Cloudy Urine pH 5.5 (<5.0-8.0) Urine Specific [place] >=1.030 (1.000-1.030) Urine Protein Negative mg/dL (NEG-TRACE) Urine Glucose (UA) >=1000 mg/dL (NEG) Urine Ketones (Stick) Negative mg/dL (NEG) Urine Blood Large (NEG) Urine Nitrite Negative (NEG) Urine Bilirubin Negative (NEG) Urine Urobilinogen Dipstick 0.2 mg/dL (0.2 mg/dL) Urine Leukocyte Esterase Negative (NEG) Urine RBC >40 /HPF (0-2) Urine WBC 1-4 /HPF (0-4) Urine Squamous Epithelial Cells Few /LPF Urine Bacteria 0 /HPF (0-FEW) Urine Mucus Slight /LPF Magnesium Level 1.8 mg/dL (1.8-2.4) Bedside Urine HCG, Qualitative Hcg negative (Negative) White Blood Count 14.4 x10^3/uL (4.0-11.0) Red Blood Count 5.09 x10^6/uL (3.50-5.40) Hemoglobin 15.4 g/dL (12.0-15.5) Hematocrit 44.7 % (36.0-47.0) Mean Corpuscular Volume 88 fL (79-100) Mean Corpuscular Hemoglobin 30 pg (25-35) Mean Corpuscular Hemoglobin Concent 34 g/dL (31-37) Red Cell Distribution Width 16.0 % (11.5-14.5) Platelet Count 325 x10^3/uL (140-400) Neutrophils (%) (Auto) 68 % (31-73) Lymphocytes (%) (Auto) 24 % (24-48) Monocytes (%) (Auto) 6 % (0-9) Eosinophils (%) (Auto) 1 % (0-3) Basophils (%) (Auto) 1 % (0-3) Neutrophils # (Auto) 9.8 x10^3/uL (1.8-7.7) Lymphocytes # (Auto) 3.5 x10^3/uL (1.0-4.8) Monocytes # (Auto) 0.9 x10^3/uL (0.0-1.1) Eosinophils # (Auto) 0.1 x10^3/uL (0.0-0.7) Basophils # (Auto) 0.1 x10^3/uL (0.0-0.2) Sodium Level 144 mmol/L (136-145) Potassium Level 2.9 mmol/L (3.5-5.1) Chloride Level 106 mmol/L (98-107) Carbon Dioxide Level 31 mmol/L (21-32) Anion Gap 7 (6-14) Blood Urea Nitrogen 13 mg/dL (7-20) Creatinine 0.8 mg/dL (0.6-1.0) Estimated GFR (Cockcroft-Gault) 79.4 BUN/Creatinine Ratio 16 (6-20) Glucose Level 46 mg/dL (70-99) Calcium Level 9.9 mg/dL (8.5-10.1) Total Bilirubin 0.4 mg/dL (0.2-1.0) Aspartate Amino Transf (AST/SGOT) 67 U/L (15-37) Alanine Aminotransferase (ALT/SGPT) 93 U/L (14-59) Alkaline Phosphatase 134 U/L (46-116) Creatine Kinase 59 U/L (26-192) Total Protein 7.7 g/dL (6.4-8.2) Albumin 3.9 g/dL (3.4-5.0) Albumin/Globulin Ratio 1.0 (1.0-1.7) Lipase 113 U/L (73-393) Test 12/15/20 01:37 12/15/20 02:51 Glucose (Fingerstick) 97 mg/dL (70-99) 63 mg/dL (70-99) Laboratory Tests Test 12/14/20 22:15 12/14/20 22:54 12/14/20 23:07 12/14/20 23:30 Urine Collection Type Void Urine Color Yellow Urine Clarity Cloudy Urine pH 5.5 (<5.0-8.0) Urine Specific [place] >=1.030 (1.000-1.030) Urine Protein Negative mg/dL (NEG-TRACE) Urine Glucose (UA) >=1000 mg/dL (NEG) Urine Ketones (Stick) Negative mg/dL (NEG) Urine Blood Large (NEG) Urine Nitrite Negative (NEG) Urine Bilirubin Negative (NEG) Urine Urobilinogen Dipstick 0.2 mg/dL (0.2 mg/dL) Urine Leukocyte Esterase Negative (NEG) Urine RBC >40 /HPF (0-2) Urine WBC 1-4 /HPF (0-4) Urine Squamous Epithelial Cells Few /LPF Urine Bacteria 0 /HPF (0-FEW) Urine Mucus Slight /LPF Magnesium Level 1.8 mg/dL (1.8-2.4) Bedside Urine HCG, Qualitative Hcg negative (Negative) White Blood Count 14.4 x10^3/uL (4.0-11.0) Red Blood Count 5.09 x10^6/uL (3.50-5.40) Hemoglobin 15.4 g/dL (12.0-15.5) Hematocrit 44.7 % (36.0-47.0) Mean Corpuscular Volume 88 fL (79-100) Mean Corpuscular Hemoglobin 30 pg (25-35) Mean Corpuscular Hemoglobin Concent 34 g/dL (31-37) Red Cell Distribution Width 16.0 % (11.5-14.5) Platelet Count 325 x10^3/uL (140-400) Neutrophils (%) (Auto) 68 % (31-73) Lymphocytes (%) (Auto) 24 % (24-48) Monocytes (%) (Auto) 6 % (0-9) Eosinophils (%) (Auto) 1 % (0-3) Basophils (%) (Auto) 1 % (0-3) Neutrophils # (Auto) 9.8 x10^3/uL (1.8-7.7) Lymphocytes # (Auto) 3.5 x10^3/uL (1.0-4.8) Monocytes # (Auto) 0.9 x10^3/uL (0.0-1.1) Eosinophils # (Auto) 0.1 x10^3/uL (0.0-0.7) Basophils # (Auto) 0.1 x10^3/uL (0.0-0.2) Sodium Level 144 mmol/L (136-145) Potassium Level 2.9 mmol/L (3.5-5.1) Chloride Level 106 mmol/L (98-107) Carbon Dioxide Level 31 mmol/L (21-32) Anion Gap 7 (6-14) Blood Urea Nitrogen 13 mg/dL (7-20) Creatinine 0.8 mg/dL (0.6-1.0) Estimated GFR (Cockcroft-Gault) 79.4 BUN/Creatinine Ratio 16 (6-20) Glucose Level 46 mg/dL (70-99) Calcium Level 9.9 mg/dL (8.5-10.1) Total Bilirubin 0.4 mg/dL (0.2-1.0) Aspartate Amino Transf (AST/SGOT) 67 U/L (15-37) Alanine Aminotransferase (ALT/SGPT) 93 U/L (14-59) Alkaline Phosphatase 134 U/L (46-116) Creatine Kinase 59 U/L (26-192) Total Protein 7.7 g/dL (6.4-8.2) Albumin 3.9 g/dL (3.4-5.0) Albumin/Globulin Ratio 1.0 (1.0-1.7) Lipase 113 U/L (73-393) Test 12/15/20 01:37 12/15/20 02:51 Glucose (Fingerstick) 97 mg/dL (70-99) 63 mg/dL (70-99) Brief Hospital Course Ms. Parker is a 40 old female who presented with hypoglycemia and hypokalemia. She was treated with IV dextrose and potassium replacement. She was recommended to decrease her home insulin dosage and follow-up closely with her PCP. Discharge Information Condition at Discharge: Stable Follow Up: Weeks Disposition/Orders: D/C to Home Scheduled Bupropion Hcl (Wellbutrin Sr) 200 Mg Tablet.er, 200 MG PO DAILY for depression, (Reported) Entered as Reported by: TRUDY MARIN on 12/15/20499 Last Action: Converted on 12/15/20755 by CHRIS DE LA GARZA MD Desvenlafaxine (Desvenlafaxine Er) 100 Mg Tab.er.24h, 1 TAB PO DAILY for dep ression for 30 Days, #30 Ref 0 (Reported) Entered as Reported by: DAYO BEAN on 10/31/1940 Last Action: Converted on 12/15/20755 by CHRIS DE LA GARZA MD Empagliflozin (Jardiance) 25 Mg Tablet, 50 MG PO DAILY for diabetes, (Reported) Entered as Reported by: TRUDY MARIN on 12/15/20505 Last Action: Reviewed on 12/15/20506 by TRUDY MARIN Insulin Glargine,Hum.rec.anlog (Lantus Solostar) 100 Unit/1 Ml Insuln.pen, 62 UNIT SQ BID for glucose for 30 Days, #15 Ref 3 Prescribed by: CHRIS DE LA GARZA MD on 12/15/20 1421 Insulin Lispro (Humalog) 100 Unit/1 Ml Vial, 35 UNIT SQ TIDWMEALS for glucose for 30 Days, #30 Prescribed by: CHRIS DE LA GARZA MD on 12/15/20 1421 Pantoprazole Sodium (Protonix) 20 Mg Tablet.dr, 40 MG PO DAILY for acid indigestion, (Reported) Entered as Reported by: JULIA EDGAR on 06/17/18 001 Last Action: Converted on 12/15/20755 by CHRIS DE LA GARZA MD Quetiapine Fumarate (Seroquel) 400 Mg Tablet, 1 TAB PO QHS for bipolar disorder, #30 Ref 1 (Reported) Entered as Reported by: TRUDY MARIN on 12/15/20499 Last Action: Converted on 12/15/20755 by CHRIS DE LA GARZA MD Scheduled PRN Alprazolam (Xanax) 2 Mg Tablet, 2 MG PO PRN TID PRN for ANXIETY / AGITATION, Ref 0 (Reported) Entered as Reported by: DAYO BEAN on 10/31/1940 Last Action: Converted on 12/15/20755 by CHRIS DE LA GARZA MD Gabapentin (Gabapentin ) 300 Mg Capsule, 300 MG PO PRN QHS PRN for NEUROGENIC PAIN, (Reported) Entered as Reported by: LOUIS MACIEL on 09/07/18 1001 Last Action: Continued on 12/15/20 0756 by CHRIS DE LA GARZA MD Ondansetron (Ondansetron Odt) 4 Mg Tab.rapdis, 1 TAB PO PRN Q6-8HRS PRN for NA USEA, #15 Prescribed by: LLUVIA SAUNDERS D.O. on 01/31/20 0311 Last Action: Reviewed on 12/15/20 0458 by TRUDY MARIN Justicifation of Admission Dx: Justifications for Admission: Justification of Admission Dx: N/A CHRIS DE LA GARZA MD Dec 15, 2020 14:24
[2020-12-15 15:00] VITALS: BP 94/56
--- NOTE | 2020-12-15 19:15 | NUR ---
Pt discharged to home. Repeat K level 4.5. Dr Blanco gave ok to discharge if K was over 3.0. Discharge instructions reviewed. Blood sugars within normal limit. Verbalized understanding.
[2020-12-15] MEDS ORDERED: QUEtiapine 50 MG TAB.ER.24H. PO SCH (21:00)
[2020-12-16] MEDS ORDERED: PANTOPRAZOLE 40 MG TABLET.DR. PO SCH (07:30)
== END 2020-12-15 19:15 | disposition home or self-care (01) ==
LOC: ER 21:57 → 6 SOUTH 12-15 03:04
PROVIDERS: ADMIT Internal Medicine; ATTEND Internal Medicine
DX: E10.649 Type 1 diabetes mellitus with hypoglycemia without coma (principal); E87.6 Hypokalemia; R74.01 Elevation of levels of liver transaminase levels; I10 Essential (primary) hypertension; K21.9 Gastro-esophageal reflux disease without esophagitis; F41.9 Anxiety disorder, unspecified; F17.210 Nicotine dependence, cigarettes, uncomplicated; F32.9 Major depressive disorder, single episode, unspecified; Z90.49 Acquired absence of other specified parts of digestive tract; Z90.710 Acquired absence of both cervix and uterus; Z79.4 Long term (current) use of insulin; Z98.890 Other specified postprocedural states
CPT/HCPCS: 36415; 74176; 80053; 81001; 81025; 82550; 82962; 83690; 83735; 84132; 85025; 96361; 96365; 96366; 96372; 96375; 96376; 99285; G0378; J1650; J2270; J2405; J3480; J7030; J7042; G0379

== ENCOUNTER 2020-12-23 20:31 | Emergency (ER) | payer BC ==
[~2020-12-23] VITALS: Ht 165.1 cm; Wt 84.0 kg
[~2020-12-23 20:31] MED LIST changes: +BUPR200T2 PO; +EMPA25TA PO; +QUET400T4 PO
[2020-12-23 21:18] LABS: BILIRUBIN,URINE NEGATIVE (NEG); CLARITY,URINE CLEAR; COLOR,URINE YELLOW; NITRITE,URINE NEGATIVE (NEG); PH,URINE 5.5 (<5.0-8.0); PROTEIN,URINE NEGATIVE (NEG-TRACE); UROBILINOGEN,URINE 0.2 mg/dL (0.2 mg/dL)
[2020-12-23 21:26] LABS: BARBITURATES NEG (NEG); BENZODIAZEPINES POS (NEG); CANNABINOIDS NEG (NEG); COCAINE NEG (NEG); METHADONE NEG (NEG); OPIATES POS (NEG); PHENCYCLIDINE NEG (NEG)
[2020-12-23 21:27] LABS: AMPHETAMINE/METHAMPHETAMINE NEG (NEG); BACTERIA,URINE 0 /HPF (0-FEW); RBC,URINE OCC /HPF (0-2)
--- NOTE | 2020-12-23 22:22 | RAD ---
EXAMINATION: XR CHEST 2V CLINICAL HISTORY: Right axillary pain following fall EXAM DATE/TIME: 12/23/2020 9:34 PM COMPARISON: CT chest 12/22/2020 FINDINGS: Lines, Tubes, and Devices: Right-sided generator pack and leads terminating at the level of the mid r ight hemithorax and right submandibular region. Cardiomediastinal Silhouette: Within normal limits. Lungs and Pleura: Patchy opacities in the bilateral lower lung zones, likely related to atelectasis s een on prior CT. No definite focal airspace consolidation. No evidence of pleural effusion or pneumot horax. Bones and Soft Tissues: No acute osseous abnormality. IMPRESSION: Patchy airspace disease in the bilateral lower lung zones, likely atelectasis. Electronically signed by: Devin Addison DO (12/23/2020 10:20 PM) [facility]
[2020-12-23 22:34] LABS: BASO # 0.1 x10^3/uL (0.0-0.2); BASO % 1 % (0-3); EOS # 0.2 x10^3/uL (0.0-0.7); EOS % 1 % (0-3); HEMATOCRIT 43.4 % (36.0-47.0); HEMOGLOBIN 14.7 g/dL (12.0-15.5); LYMPH # 2.9 x10^3/uL (1.0-4.8); LYMPH % 28 % (24-48); MEAN CORPUSCULAR HEMOGLOBIN 30 pg (25-35); MEAN CORPUSCULAR HGB CONC 34 g/dL (31-37); MEAN CORPUSCULAR VOLUME 90 fL (79-100); MONO # 0.6 x10^3/uL (0.0-1.1); MONO % 6 % (0-9); NEUT # 6.6 x10^3/uL (1.8-7.7); NEUT % 63 % (31-73); PLATELET COUNT 252 x10^3/uL (140-400); RED BLOOD COUNT 4.84 x10^6/uL (3.50-5.40); RED CELL DISTRIBUTION WIDTH 16.6 % (11.5-14.5); WHITE BLOOD COUNT 10.5 x10^3/uL (4.0-11.0)
--- NOTE | 2020-12-23 22:41 | PHYS DOC ---
Past Medical History Past Medical History: Diabetes-Type I Additional Past Medical Histor: BRITT, type 2 insulin dependent diabetic, hydranitis Past Surgical History: Cholecystectomy, Hysterectomy, Tonsillectomy, Other Additional Past Surgical Histo: NASAL SEPTAL Smoking Status: Current Every Day Smoker Alcohol Use: None Drug Use: None General Adult EDM: Chief Complaint: MECHANICAL FALL HPI: HPI: 40-year-old female past medical history of INOCENCIA, COPD, diabetes and Britt, presents to the ED with complaints of right upper chest pain and right axilla pain that started after patient fell down her carpeted stairs earlier this morning. Patient is concerned that she just had an Inspire (for INOCENCIA) placed by Dr. Soto at [facility] on 19 December and is worried about malpositioning of it. States she has a follow-up appointment on December 31. Patient denies any preceding symptoms towards falling, reports it was an accident and states she hit the back of her head on the wall and her chest landed forward on a baby gate. States her helped get her up. She was not drinking alcohol or under the influence of any drugs. Denies any loss of consciousness. States she took her [place] at 3 PM tonight and went to dinner. Came to the ED because her pain persisted. Unknown last tetanus. Review of Systems: Review of Systems: Constitutional: Denies fever or chills. [] Eyes: Denies change in visual acuity. [] HENT: Denies nasal congestion or sore throat. [] Respiratory: Denies cough or shortness of breath. [] Cardiovascular: Denies syncope, hemoptysis or lower extremity edema GI: Denies abdominal pain, nausea, vomiting, bloody stools or diarrhea. [] : Denies dysuria, hematuria, saddle anesthesia, urine or bowel retention or incontinence Musculoskeletal: Denies back pain or joint pain. [] Integument: Denies rash, bleeding, diaphoresis or blistering lesions Neurologic: Denies headache, neck pain, focal weakness or sensory changes. [] Endocrine: Denies polyuria or polydipsia. [] Lymphatic: Denies swollen glands. [] Psychiatric: Denies depression or anxiety. [] Heart Score: C/O Chest Pain: No Risk Factors: Risk Factors: DM, Current or recent (<one month) smoker, HTN, HLP, family history of CAD, obesity. Risk Scores: Score 0 - 3: 2.5% MACE over next 6 weeks - Discharge Home Score 4 - 6: 20.3% MACE over next 6 weeks - Admit for Clinical Observation Score 7 - 10: 72.7% MACE over next 6 weeks - Early Invasive Strategies Allergies: Allergies: Allergies Coded Allergies Type Severity Reaction Last Updated Verified ketorolac Allergy Severe rash 01/31/20 Yes levofloxacin Allergy Intermediate Rash 05/13/19 Yes shellfish derived Allergy Intermediate RASH/ITCH 09/15/19 Yes vancomycin Allergy Intermediate Rash 05/13/19 Yes Physical Exam: PE: Constitutional: Well developed, well nourished, no acute distress, non-toxic appearance. HENT: Normocephalic, atraumatic, no midline neck pain Eyes: EOMI, conjunctiva normal, no discharge. Neck: Normal range of motion, supple, no nuchal rigidity or meningismus, inspire horizontal incision site over anterior neck with Dermabond, c/d/i with no wound dehiscence, rash or bleeding, neck with goiter/no cellulitis or bruising - denies blunt trauma to anterior neck, Cardiovascular: S1/2 present, regular rhythm, inspire horizontal incision site over right upper chest wall with Dermabond, c/d/i with no wound dehiscence, rash or bleeding Lungs & Thorax: Speaking in full sentences-no hoarseness, bilateral equal chest rise, no tachypnea or increased work of breathing Abdomen: soft, no tenderness, no hip pain, Skin: Warm, dry, no erythema, no rash. [] Back: No midline tenderness, no CVA tenderness. [] Extremities: No tenderness, no cyanosis, no lower extremity edema, no joint def ormity, vertical abrasion with scab over mid campos approx 10xcm, equal lower extremity pulses, bends both legs easily on stretcher with no hip pain Neurologic: Alert and oriented X 3, normal motor function, normal sensory function, no focal deficits noted. [] Psychologic: Affect normal, judgement normal, mood normal. [] Nexus C-spine criteria are negative: There is no post midline tenderness, the patient is not intoxicated, there is a normal level of alertness, there are no focal neurologic deficits and there are no distracting injuries. Current Patient Data: Labs: Laboratory Tests Test 12/23/20 20:40 12/23/20 22:20 Urine Collection Type Unknown Urine Color Yellow Urine Clarity Clear Urine pH 5.5 (<5.0-8.0) Urine Specific [place] >=1.030 (1.000-1.030) Urine Protein Negative mg/dL (NEG-TRACE) Urine Glucose (UA) >=1000 mg/dL (NEG) Urine Ketones (Stick) Negative mg/dL (NEG) Urine Blood Negative (NEG) Urine Nitrite Negative (NEG) Urine Bilirubin Negative (NEG) Urine Urobilinogen Dipstick 0.2 mg/dL (0.2 mg/dL) Urine Leukocyte Esterase Negative (NEG) Urine RBC Occ /HPF (0-2) Urine WBC 1-4 /HPF (0-4) Urine Squamous Epithelial Cells Mod /LPF Urine Bacteria 0 /HPF (0-FEW) Urine Mucus Slight /LPF Urine Opiates Screen Pos (NEG) Urine Methadone Screen Neg (NEG) Urine Barbiturates Neg (NEG) Urine Phencyclidine Screen Neg (NEG) Urine Amphetamine/Methamphetamine Neg (NEG) Urine Benzodiazepines Screen Pos (NEG) Urine Cocaine Screen Neg (NEG) Urine Cannabinoids Screen Neg (NEG) Urine Ethyl Alcohol Neg (NEG) White Blood Count 10.5 x10^3/uL (4.0-11.0) Red Blood Count 4.84 x10^6/uL (3.50-5.40) Hemoglobin 14.7 g/dL (12.0-15.5) Hematocrit 43.4 % (36.0-47.0) Mean Corpuscular Volume 90 fL (79-100) Mean Corpuscular Hemoglobin 30 pg (25-35) Mean Corpuscular Hemoglobin Concent 34 g/dL (31-37) Red Cell Distribution Width 16.6 % (11.5-14.5) H Platelet Count 252 x10^3/uL (140-400) Neutrophils (%) (Auto) 63 % (31-73) Lymphocytes (%) (Auto) 28 % (24-48) Monocytes (%) (Auto) 6 % (0-9) Eosinophils (%) (Auto) 1 % (0-3) Basophils (%) (Auto) 1 % (0-3) Neutrophils # (Auto) 6.6 x10^3/uL (1.8-7.7) Lymphocytes # (Auto) 2.9 x10^3/uL (1.0-4.8) Monocytes # (Auto) 0.6 x10^3/uL (0.0-1.1) Eosinophils # (Auto) 0.2 x10^3/uL (0.0-0.7) Basophils # (Auto) 0.1 x10^3/uL (0.0-0.2) Laboratory Tests 12/23/20 22:20 EKG: EKG: [] Radiology/Procedures: Radiology/Procedures: IMAGING REPORT Signed PATIENT: RON REYNA ACCOUNT: [id number] : 1980 LOCATION: ER AGE: 40 SEX: F EXAM STATUS: REG ER ORD. PHYSICIAN: ANA CRISTINA SHANNON DO REASON: fall PROCEDURE: CT HEAD AND CERVICAL SPINE WO CT HEAD AND C-SPINE WO dated 12/23/2020 11:32 PM. Comparison: None Clinical Indication: Reason: fall / Spl. Instructions: / History: HEAD AND NECK PAIN Technical factors: Contiguous 5 mm axial images of the head were obtained from the skullbase to the vertex. No contrast was administered. In addition, 3 mm axial images of the cervical spine were acquired with thin cut coronal and sagittal reconstructions. One or more of the following individualized dose reduction techniques were utilized for this examination: 1. Automated exposure control 2. Adjustment of the mA and/or kV according to patient size 3. Use of iterative reconstruction technique Findings head: Ventricles and sulci are mildly prominent for age. No midline shift or mass effect. Brain parenchyma is of normal attenuation. No hemorrhage or extra-axial collection. Posterior fossa and brainstem unremarkable. Visualized paranasal sinuses and mastoid air cells are clear. There is mild mucosal thickening of the left maxillary sinus. IMPRESSION HEAD: No evidence of acute intracranial abnormality. Findings cervical spine: Images were acquired from the skull base to T3. There is straightening of the normal cervical lordosis, otherwise sagittal alignment is anatomic. Vertebral body heights are maintained. No prevertebral soft tissue swelling. Posterior e lements are intact. No fractures are identified. No segment spondylotic changes. No focal disc herniation. The bony canal and foramen are adequate. No signal soft tissue abnormality. IMPRESSION CERVICAL SPINE: No evidence of fracture or malalignment. Electronically signed by: Corbin Mccray MD (12/24/2020 12:56 AM) [facility] and SIGNED BY: CORBIN MCCRAY MD DATE: 12/24/20 [id number] IMAGING REPORT Signed PATIENT: RON REYNA ACCOUNT: [id number] : 1980 LOCATION: ER AGE: 40 SEX: F EXAM STATUS: REG ER ORD. PHYSICIAN: ANA CRISTINA SHANNON DO REASON: right armpit pain s/p fall PROCEDURE: CHEST PA & LATERAL EXAMINATION: XR CHEST 2V CLINICAL HISTORY: Right axillary pain following fall EXAM DATE/TIME: 12/23/2020 9:34 PM COMPARISON: CT chest 12/22/2020 FINDINGS: Lines, Tubes, and Devices: Right-sided generator pack and leads terminating at the level of the mid right hemithorax and right submandibular region. Cardiomediastinal Silhouette: Within normal limits. Lungs and Pleura: Patchy opacities in the bilateral lower lung zones, likely related to atelectasis seen on prior CT. No definite focal airspace consolidation. No evidence of pleural effusion or pneumothorax. Bones and Soft Tissues: No acute osseous abnormality. IMPRESSION: Patchy airspace disease in the bilateral lower lung zones, likely atelectasis. Electronically signed by: Devin Zazueta DO (12/23/2020 10:20 PM) [facility] DICTATED and SIGNED BY: DEVIN ZAZUETA DO DATE: 12/23/20 [id number] IMAGING REPORT Signed PATIENT: RON REYNA ACCOUNT: [id number] : 1980 LOCATION: ER AGE: 40 SEX: F EXAM STATUS: REG ER ORD. PHYSICIAN: ANA CRISTINA SHANNON DO REASON: abrasion to campos PROCEDURE: TIBIA FIBULA RIGHT Two-view right tibia-fibula dated 12/23/2020. No comparison available. CLINICAL INDICATION: Pain after injury. FINDINGS: 2 views right tibia-fibula show normal bony alignment. No displaced fracture. No periostitis or bone destruction. No acute osseous or articular abnormality. There is soft tissue swelling medially. No radiopaque foreign body. IMPRESSION: No acute bony abnormality. Electronically signed by: Corbin Mccray MD (12/24/2020 3:36 AM) [facility] [place] S[place] BY: CORBIN MCCRAY MD DATE: 12/24/20 [id number] 0 Course & Med Decision Making: Course & Med Decision Making Pertinent Labs and Imaging studies reviewed. (See chart for details) Lengthy ED stay due to high volume in ED, acuity of critical pts and ED staffing. Concern for blunt right upper chest wall injury and right axilla pain. Patient repeatedly asking for pain medications yet states she has [place] at home is not out of this medication. Requested be discharged from the ED if she is not receiving any further Dilaudid-has drug seeking behavior. Refusing to have EKG performed. Declines tetanus vaccine. Repeatedly calls her RN regarding analgesia. Patient not in any distress with no active signs of blunt trauma to her right chest wall or axilla. Unable to convince patient to allow us to perform an EKG. Patient will be discharged from the hospital AGAINST MEDICAL ADVICE with strict ED return precautions were given for worsening chest pain, syncope, neurologic deficits, dyspnea, nausea, vomiting or back pain. Encouraged urgent outpatient follow-up with PMD and Dr. Ch and pain management. Life- threatening processes were considered but are low suspicion at this time, given history, physical exam and ED workup. Pt was educated on all prescription med ications and adverse effects. All patient's questions were answered and pt was stable at time of discharge. Life/limb-threatening differential includes but is not limited to, acute myocardial infarction, aortic dissection, congestive heart failure, esophageal injury including rupture, surgical abdomen, arrhythmia, cardiomyopathy, myocarditis, pericarditis, peptic ulcer disease, pneumomediastinum, pneumonia, pneumothorax, pulmonary embolus, unstable angina, rib fracture, contusion, pericardial tamponade or effusion, traumatic injury including mediastinal hemorrhage or hematoma, or pulmonary contusion. The patient has decided to leave our facility against medical advice. I have assessed patient's ability to make informed decision and feel the patient has the capacity to comprehend information regarding the current medical condition and appreciates the impact of the disease or condition and the consequences of various options for treatment, including foregoing treatment. The patient possesses the ability to evaluate all treatment options, comparing the risks and benefits of each option, communicate his or her choice in a consistent manner over time, and is able to make rational choices. I explained to the patient further testing, treatment, and evaluation I would like to perform in the emergency department visit as well as any possible alternatives that can be accomplished in a timely manner. I have outlined the possible risks of foregoing any or all of these interventions and the patient understands and acknowledges that the decision to leave may result in undesirable consequences such as , permanent disability, and/or loss of current lifestyle. Even though leaving AMA is not ideal, I have instructed the patient to follow any discharge instructions given, take any medications prescribed, and resume care as soon as possible with another provider. This conversation was witnessed by another member of the emergency department staff and we clearly communicated the patient is welcome to return anytime to continue care at our facility. Dragon Disclaimer: Dragon Disclaimer: This electronic medical record was generated, in whole or in part, using a voice recognition dictation system. Departure Departure Impression: Primary Impression: Fall Additional Impressions: Blunt injury of chest Abrasion of skin of right lower leg Left against medical advice Drug-seeking behavior Disposition: 07 LEFT AGAINST MEDICAL ADVICE Condition: STABLE Referrals: JANET FULLER (PCP) Follow-up in 24 to 40 hours for reevaluation and pain management Patient Instructions: Abrasions, Blunt Chest Trauma, Discharge Against Medical Advice, Drug Abuse and Addiction-SportsMed Additional Instructions: FOLLOW UP WITH PAIN MANAGEMENT: [facility] Address: [address] [place] [id number] EMERGENCY DEPARTMENT GENERAL DISCHARGE INSTRUCTIONS Thank you for coming to [facility] Emergency Department (ED) today and trusting us with you care. We trust that you had a positive experience in our Emergency Department. If you wish to speak to the department management, you may call the Director at [phone]. YOUR FOLLOW UP INSTRUCTIONS ARE FOLLOWS: 1. Do you have a private Doctor? If you do not have a private doctor, please ask for a resource list of physicians or clinics that may be able to assist you with follow up care. 2. The Emergency Physicain has interpreted your x-rays. The X-Ray specialist will also review them. If there is a change in the findings, you will be notified in 48 hours when at all possible. 3. A lab test or culture has been done, your results will be reviewed and you will be notified if you need a change in treatment. ADDITIONAL INSTRUCTIONS AND INFORMATION: 1. Your care today has been supervised by a physician who is specially trained in emergency care. Many problems require more than one evaluation for a complete diagnosis and treatment. We recommend that you schedule your follow up appointment as recommended to ensure complete treatment of you illness or injury. If you are unable to obtain follow up care and continue to have a problem, or if your condition worsens, we recommend that you return to the ED. 2. We are not able to safely determine your condition over the phone nor are we able to give sound medical advice over the phone. For these safety reasons, if you call for medical advice we will ask you to come to the ED for further evaluation. 3. If you have any questions regarding these discharge instructions please call the ED at [phone]. SAFETY INFORMATION: In the interest of safety, wellness, and injury prevention; we encourage you to wear your sealbelt, if you smoke; quite smoking, and we encourage family to use a protective helmet for bicycling and other sporting events that present an increased risk for head injury. IF YOUR SYMPTOMS WORSEN OR NEW SYMPTOMS DEVELOP, OR YOU HAVE CONCERNS ABOUT YOUR CONDITION; OR IF YOUR CONDITION WORSENS WHILE YOU ARE WAITING FOR YOUR FOLLOW UP APPOINTMENT; EITHER CONTACT YOUR PRIMARY CARE DOCTOR, THE PHYSICIAN WHOSE NAME AND NUMBER YOU WERE GIVEN, OR RETURN TO THE ED IMMEDIATELY. ANA CRISTINA JUDGE DO Dec 23, 2020 22:41
[2020-12-23 22:50] LABS: CALCIUM 9.3 mg/dL (8.5-10.1); CREATININE 0.8 mg/dL (0.6-1.0); GFR 79.4; POTASSIUM 3.2 mmol/L (3.5-5.1); PREG TEST PT QUAL NEGATIVE (NEG)
[2020-12-23 22:56] LABS: ALBUMIN 3.8 g/dL (3.4-5.0); DIRECT BILIRUBIN 0.2 mg/dL (0.0-0.2); MAGNESIUM 2.3 mg/dL (1.8-2.4); TOTAL BILIRUBIN 0.5 mg/dL (0.2-1.0); TOTAL PROTEIN 7.7 g/dL (6.4-8.2)
[2020-12-24] MEDS ORDERED: ONDANSETRON PF 4 MG/2 ML VIAL. IVP ONE (00:30)
[2020-12-24] MEDS ORDERED: HYDROmorphone 2 MG/ML VIAL IVP ONE (00:30)
--- NOTE | 2020-12-24 00:59 | RAD ---
CT HEAD AND C-SPINE WO dated 12/23/2020 11:32 PM. Comparison: None Clinical Indication: Reason: fall / Spl. Instructions: / History: HEAD AND NECK PAIN Technical factors: Contiguous 5 mm axial images of the head were obtained from the skullbase to the v ertex. No contrast was administered. In addition, 3 mm axial images of the cervical spine were acquir ed with thin cut coronal and sagittal reconstructions. One or more of the following individualized dose reduction techniques were utilized for this examinat ion: 1. Automated exposure control 2. Adjustment of the mA and/or kV according to patient size 3. Use of iterative reconstruction technique Findings head: Ventricles and sulci are mildly prominent for age. No midline shift or mass effect. Brain parenchyma is of normal attenuation. No hemorrhage or extra-axial collection. Posterior fossa and brainstem unre markable. Visualized paranasal sinuses and mastoid air cells are clear. There is mild mucosal thickening of the left maxillary sinus. IMPRESSION HEAD: No evidence of acute intracranial abnormality. Findings cervical spine: Images were acquired from the skull base to T3. There is straightening of the normal cervical lordosi s, otherwise sagittal alignment is anatomic. Vertebral body heights are maintained. No prevertebral s oft tissue swelling. Posterior elements are intact. No fractures are identified. No segment spondylotic changes. No focal disc herniation. The bony canal and foramen are adequate. No signal soft tissue abnormality. IMPRESSION CERVICAL SPINE: No evidence of fracture or malalignment. Electronically signed by: Corbin Mccray MD (12/24/2020 12:56 AM) [facility]
--- NOTE | 2020-12-24 03:38 | RAD ---
Two-view right tibia-fibula dated 12/23/2020. No comparison available. CLINICAL INDICATION: Pain after injury. FINDINGS: 2 views right tibia-fibula show normal bony alignment. No displaced fracture. No periostitis or bone destruction. No acute osseous or articular abnormality. There is soft tissue swelling medially. No ra diopaque foreign body. IMPRESSION: No acute bony abnormality. Electronically signed by: Corbin Mccray MD (12/24/2020 3:36 AM) [facility]
[2020-12-24 03:45] VITALS: BP 122/78
[2020-12-24] MEDS ORDERED: DIPH,PERTUSS(ACELL),TET VAC/PF 0.5 ML SYRINGE. VAX IM ONE (04:00)
== END 2020-12-24 04:13 | disposition left against medical advice (07) ==
LOC: ER 20:31
DX: S80.811A Abrasion, right lower leg, initial encounter (principal); R07.89 Other chest pain; Z76.5 Malingerer [conscious simulation]; E11.9 Type 2 diabetes mellitus without complications; F17.200 Nicotine dependence, unspecified, uncomplicated; Z90.49 Acquired absence of other specified parts of digestive tract; Z90.710 Acquired absence of both cervix and uterus; Z98.890 Other specified postprocedural states; W18.39XA Other fall on same level, initial encounter; Y93.89 Activity, other specified; Y92.89 Other specified places as the place of occurrence of the external cause; Y99.8 Other external cause status
CPT/HCPCS: 36415; 70450; 71046; 72125; 73590; 80048; 80076; 80307; 81001; 83690; 83735; 83880; 84484; 84703; 85025; 96374; 96375; 99285; J1170; J2405

== ENCOUNTER 2021-01-14 15:53 | Emergency (ER) | payer BC ==
[~2021-01-14] VITALS: Ht 165.1 cm; Wt 85.0 kg
[2021-01-14] MEDS ORDERED: IV NORMAL SALINE 1000ML BAG 1,000 ML IV ONE (17:15)
[2021-01-14] MEDS ORDERED: ONDANSETRON PF 4 MG/2 ML VIAL. IVP ONE ×2 (17:15→19:30)
[2021-01-14] MEDS ORDERED: MORPHINE SULFATE 10 MG/ML VIAL. IV ONE ×2 (17:15→19:30)
[2021-01-14 17:51] LABS: BASO # 0.1 x10^3/uL (0.0-0.2); BASO % 1 % (0-3); EOS # 0.1 x10^3/uL (0.0-0.7); EOS % 2 % (0-3); HEMOGLOBIN 13.8 g/dL (12.0-15.5); LYMPH # 2.5 x10^3/uL (1.0-4.8); LYMPH % 31 % (24-48); MEAN CORPUSCULAR HEMOGLOBIN 30 pg (25-35); MEAN CORPUSCULAR HGB CONC 34 g/dL (31-37); MEAN CORPUSCULAR VOLUME 89 fL (79-100); MONO # 0.6 x10^3/uL (0.0-1.1); MONO % 8 % (0-9); NEUT # 4.7 x10^3/uL (1.8-7.7); NEUT % 59 % (31-73); PLATELET COUNT 180 x10^3/uL (140-400); RED BLOOD COUNT 4.59 x10^6/uL (3.50-5.40); RED CELL DISTRIBUTION WIDTH 16.1 % (11.5-14.5)
[2021-01-14 18:00] LABS: CALCIUM 8.9 mg/dL (8.5-10.1); CREATININE 0.9 mg/dL (0.6-1.0); GFR 69.3; POTASSIUM 4.3 mmol/L (3.5-5.1)
[2021-01-14 18:05] LABS: ALBUMIN 3.6 g/dL (3.4-5.0); TOTAL BILIRUBIN 0.3 mg/dL (0.2-1.0); TOTAL PROTEIN 7.2 g/dL (6.4-8.2)
[2021-01-14] MEDS ORDERED: INSULIN REGULAR 100 UNIT/ML 3ML VIAL. IV ONE (18:30)
--- NOTE | 2021-01-14 19:18 | PHYS DOC ---
Past Medical History Past Medical History: COPD, Diabetes-Type I Additional Past Medical Histor: PHILLIPS, hydranitis, INOCENCIA (ROXANN DEWITT TELEVISION NEWS PHOTOGRAPHER) Past Surgical History: Cholecystectomy, Hysterectomy, Tonsillectomy, Other Additional Past Surgical Histo: NASAL SEPTAL, hernia repair (ROXANN DEWITT TELEVISION NEWS PHOTOGRAPHER) Smoking Status: Current Every Day Smoker Additional Information: 3-4 cigarettes daily Alcohol Use: None Drug Use: None (ROXANN DEWITT TELEVISION NEWS PHOTOGRAPHER) General Adult EDM: Chief Complaint: HYPERGLYCEMIA HPI: HPI: Patient is a 40 year old female with history of diabetes type presenting today complaining of hyperglycemia, she states her glucose was 450 prior to coming to the ED. She states she ran out of insulin from her pump, she states she is getting a new insulin pump tomorrow. He is also complaining of chronic 8 out of 10 right pelvic pain radiating to her groin. Denies any injury. Denies any u rgency frequency or dysuria. (ROXANN DEWITT TELEVISION NEWS PHOTOGRAPHER) Review of Systems: Review of Systems: Constitutional: Denies fever or chills. [] Eyes: Denies change in visual acuity. [] HENT: Denies nasal congestion or sore throat. [] Respiratory: Denies cough or shortness of breath. [] Cardiovascular: Denies chest pain or edema. [] GI: Reports chronic pelvic pain, denies nausea, vomiting, bloody stools or diarrhea. [] : Denies dysuria. [] Musculoskeletal: Denies back pain or joint pain. [] Integument: Denies rash. [] Neurologic: Denies headache, focal weakness or sensory changes. [] Endocrine: Reports hypoglycemia Psychiatric: Denies depression or anxiety. [] (ROXANN DEWITT TELEVISION NEWS PHOTOGRAPHER) Heart Score: C/O Chest Pain: N/A Risk Factors: Risk Factors: DM, Current or recent (<one month) smoker, HTN, HLP, family history of CAD, obesity. Risk Scores: Score 0 - 3: 2.5% MACE over next 6 weeks - Discharge Home Score 4 - 6: 20.3% MACE over next 6 weeks - Admit for Clinical Observation Score 7 - 10: 72.7% MACE over next 6 weeks - Early Invasive Strategies (ROXANN DEWITT TELEVISION NEWS PHOTOGRAPHER) Current Medications: Current Medications Medications (Trade) Dose Ordered Sig/Taqueria Start Time Stop Time Status Last Admin Dose Admin Insulin Human Regular (HumuLIN R VIAL) 6 unit 1X ONCE 01/14/21 18:30 01/14/21 18:31 DC 01/14/21 18:28 6 UNIT Morphine Sulfate (Morphine Sulfate) 5 mg 1X ONCE 01/14/21 17:15 01/14/21 17:16 DC 01/14/21 17:51 5 MG Ondansetron HCl (Zofran) 4 mg 1X ONCE 01/14/21 17:15 01/14/21 17:16 DC 01/14/21 17:48 4 MG Sodium Chloride 1,000 ml @ 1,000 mls/hr 1X ONCE 01/14/21 17:15 01/14/21 18:14 DC 01/14/21 17:43 1,000 MLS/HR (ROXANN DEWITT TELEVISION NEWS PHOTOGRAPHER) Allergies: Allergies: Allergies Coded Allergies Type Severity Reaction Last Updated Verified ketorolac Allergy Severe rash 01/14/21 Yes levofloxacin Allergy Intermediate Rash 01/14/21 Yes shellfish derived Allergy Intermediate RASH/ITCH 01/14/21 Yes vancomycin Allergy Intermediate Rash 01/14/21 Yes (ROXANN DEWITT TELEVISION NEWS PHOTOGRAPHER) Physical Exam: PE: Constitutional: Well developed, well nourished, no acute distress, non-toxic appearance. [] HENT: Normocephalic, atraumatic, bilateral external ears normal, oropharynx moist, no oral exudates, nose normal. [] Eyes: PERRLA, EOMI, conjunctiva normal, no discharge. [] Neck: Normal range of motion, no tenderness, supple, no stridor. [] Cardiovascular:Heart rate regular rhythm, no murmur [] Lungs & Thorax: Bilateral breath sounds clear to auscultation [] Abdomen: Bowel sounds normal, soft, no tenderness, no masses, no pulsatile masses. [] Skin: Warm, dry, no erythema, no rash. [] Back: No tenderness, no CVA tenderness. [] Extremities: No tenderness, no cyanosis, no clubbing, ROM intact, no edema. [] Neurologic: Alert and oriented X 3, normal motor function, normal sensory function, no focal deficits noted. [] Psychologic: Affect normal, judgement normal, mood normal. [] (ROXANN DEWITT TELEVISION NEWS PHOTOGRAPHER) Current Patient Data: Labs: Laboratory Tests Test 5/17/21 16:09 01/14/21 17:40 POC Urine HCG, Qualitative Hcg negative (Negative) White Blood Count 8.0 x10^3/uL (4.0-11.0) Red Blood Count 4.59 x10^6/uL (3.50-5.40) Hemoglobin 13.8 g/dL (12.0-15.5) Hematocrit 41.0 % (36.0-47.0) Mean Corpuscular Volume 89 fL (79-100) Mean Corpuscular Hemoglobin 30 pg (25-35) Mean Corpuscular Hemoglobin Concent 34 g/dL (31-37) Red Cell Distribution Width 16.1 % (11.5-14.5) H Platelet Count 180 x10^3/uL (140-400) Neutrophils (%) (Auto) 59 % (31-73) Lymphocytes (%) (Auto) 31 % (24-48) Monocytes (%) (Auto) 8 % (0-9) Eosinophils (%) (Auto) 2 % (0-3) Basophils (%) (Auto) 1 % (0-3) Neutrophils # (Auto) 4.7 x10^3/uL (1.8-7.7) Lymphocytes # (Auto) 2.5 x10^3/uL (1.0-4.8) Monocytes # (Auto) 0.6 x10^3/uL (0.0-1.1) Eosinophils # (Auto) 0.1 x10^3/uL (0.0-0.7) Basophils # (Auto) 0.1 x10^3/uL (0.0-0.2) Sodium Level 141 mmol/L (136-145) Potassium Level 4.3 mmol/L (3.5-5.1) Chloride Level 105 mmol/L (98-107) Carbon Dioxide Level 27 mmol/L (21-32) Anion Gap 9 (6-14) Blood Urea Nitrogen 11 mg/dL (7-20) Creatinine 0.9 mg/dL (0.6-1.0) Estimated GFR (Cockcroft-Gault) 69.3 BUN/Creatinine Ratio 12 (6-20) Glucose Level 370 mg/dL (70-99) H Calcium Level 8.9 mg/dL (8.5-10.1) Total Bilirubin 0.3 mg/dL (0.2-1.0) Aspartate Amino Transferase (AST) 41 U/L (15-37) H Alanine Aminotransferase (ALT) 85 U/L (14-59) H Alkaline Phosphatase 113 U/L (46-116) Total Protein 7.2 g/dL (6.4-8.2) Albumin 3.6 g/dL (3.4-5.0) Albumin/Globulin Ratio 1.0 (1.0-1.7) Laboratory Tests 01/14/21 17:40 Laboratory Tests 01/14/21 17:40 Vital Signs: Vital Signs Date Time Temp Pulse Resp B/P (MAP) Pulse Ox O2 Delivery O2 Flow Rate FiO2 01/14/21 18:30 78 24 136/70 (92) 97 Room Air 01/14/21 17:16 98.2 98.2 (ROXANN DEWITT APRN) EKG: EKG: [] (ROXANN DEWITT APRN) Radiology/Procedures: Radiology/Procedures: [] (ROXANN DEWITT APRN) Course & Med Decision Making: Course & Med Decision Making Pertinent Labs and Imaging studies reviewed. (See chart for details) This is a 40-year-old male patient presenting to the ED today complaining of hyperglycemia. Glucose in the ED is 387, no anion gap. Also complaining of chronic pelvic pain that she has been evaluated for multiple times. She states she has a new insulin pump coming in tomorrow. She was given insulin in the ED. She was sent home with a NovoLog pen. (ROXANN DEWITT APRN) Course & Med Decision Making The chart was reviewed. Agree with the plan of care. (DARWIN GODFREY DO) Dragon Disclaimer: Draganshul Disclaimer: This electronic medical record was generated, in whole or in part, using a voice recognition dictation system. (ROXANN DEWITT APRN) Departure Departure Impression: Primary Impression: Hyperglycemia Additional Impression: Chronic pelvic pain in female Disposition: HOME / SELF CARE / HOMELESS Condition: STABLE Referrals: JANET FULLER (PCP) follow up in one week Patient Instructions: Hyperglycemia, [id number] Additional Instructions: You were seen for hypoglycemia. Your glucose was 387. Please follow-up with your doctor in the next 1 to 2 weeks. Use NovoLog pain until you get your insulin pump Scripts Insulin Lispro (Insulin Lispro Kwikpen U-100) 100 Unit/1 Ml Insuln.pen 35 UNIT SQ TID, #100 EACH Prov: ROXANN DEWITT APRN 01/14/21 ROXANN DEWITT APRN January 14, 2021 19:18 DARWIN GODFREY I DO January 16, 2021 19:13
[2021-01-14] MEDS ORDERED: INSU100I46 SQ (20:07)
[2021-01-14 20:13] VITALS: BP 140/81
== END 2021-01-14 20:21 | disposition home or self-care (01) ==
LOC: ER 15:53
DX: E10.65 Type 1 diabetes mellitus with hyperglycemia (principal); G89.29 Other chronic pain; R10.2 Pelvic and perineal pain; J44.9 Chronic obstructive pulmonary disease, unspecified; F17.210 Nicotine dependence, cigarettes, uncomplicated; Z90.49 Acquired absence of other specified parts of digestive tract; Z90.710 Acquired absence of both cervix and uterus; Z88.1 Allergy status to other antibiotic agents; Z88.6 Allergy status to analgesic agent; Z91.013 Allergy to seafood
CPT/HCPCS: 36415; 80053; 81025; 85025; 96361; 96374; 96375; 96376; 99284; J1815; J2270; J2405; J7030

== ENCOUNTER 2021-01-28 21:26 | Emergency (ER) | payer BC ==
[~2021-01-28] VITALS: Ht 165.1 cm; Wt 84.9 kg
[~2021-01-28 21:26] MED LIST changes: +INSU100I46 SQ
[2021-01-28 21:42] LABS: BILIRUBIN,URINE NEGATIVE (NEG); CLARITY,URINE CLEAR; COLOR,URINE YELLOW; NITRITE,URINE NEGATIVE (NEG); PROTEIN,URINE NEGATIVE (NEG-TRACE); UROBILINOGEN,URINE 0.2 mg/dL (0.2 mg/dL)
[2021-01-28 21:49] LABS: BACTERIA,URINE FEW /HPF (0-FEW); RBC,URINE >40 /HPF (0-2)
[2021-01-28 22:06] LABS: BASO # 0.1 x10^3/uL (0.0-0.2); BASO % 1 % (0-3); EOS # 0.1 x10^3/uL (0.0-0.7); EOS % 1 % (0-3); HEMATOCRIT 41.3 % (36.0-47.0); LYMPH % 22 % (24-48); MEAN CORPUSCULAR HEMOGLOBIN 30 pg (25-35); MEAN CORPUSCULAR HGB CONC 34 g/dL (31-37); MEAN CORPUSCULAR VOLUME 90 fL (79-100); MONO # 0.4 x10^3/uL (0.0-1.1); MONO % 5 % (0-9); NEUT # 6.7 x10^3/uL (1.8-7.7); NEUT % 72 % (31-73); PLATELET COUNT 152 x10^3/uL (140-400); RED BLOOD COUNT 4.62 x10^6/uL (3.50-5.40); RED CELL DISTRIBUTION WIDTH 16.2 % (11.5-14.5); WHITE BLOOD COUNT 9.4 x10^3/uL (4.0-11.0)
[2021-01-28 22:12] LABS: CALCIUM 9.2 mg/dL (8.5-10.1); CREATININE 0.8 mg/dL (0.6-1.0); GFR 79.4; POTASSIUM 3.7 mmol/L (3.5-5.1)
[2021-01-28 22:18] LABS: ALBUMIN 3.7 g/dL (3.4-5.0); ALBUMIN/GLOBULIN RATIO 1.1 (1.0-1.7); TOTAL BILIRUBIN 0.2 mg/dL (0.2-1.0)
[2021-01-28] MEDS ORDERED: INSULIN REGULAR 100 UNIT/ML 3ML VIAL. IV ONE ×2 (22:30→23:45)
[2021-01-28] MEDS ORDERED: MORPHINE SULFATE 10 MG/ML VIAL. IV ONE (22:45)
[2021-01-28] MEDS ORDERED: ONDANSETRON PF 4 MG/2 ML VIAL. IVP ONE (22:45)
--- NOTE | 2021-01-29 00:17 | RAD ---
EXAM: CT Abdomen and Pelvis without IV contrast CLINICAL HISTORY: Reason: abd pain, hematuria COMPARISON: none TECHNIQUE: Helical CT of the abdomen and pelvis without intravenous contrast. Axial, coronal and sagi ttal reformatted images were generated. PQRS compliance statement - One or more of the following individualized dose reduction techniques wer e utilized for this study: 1. Automated exposure control 2. Adjustment of the mA and/or kV according to patient size 3. Use of iterative reconstruction technique FINDINGS: Lack of intravenous contrast limits evaluation of solid organs, vasculature, and lymph nodes. Lower chest: Patchy opacities right lower lobe may represent atelectasis or developing consolidation. Abdomen and Pelvis: No focal liver lesion. Liver is enlarged measuring 24.5 cm in length. Spleen is unremarkable. Fat-con taining left adrenal lesion consistent with adrenal myelolipoma. Right adrenal gland is unremarkable. Pancreas is unremarkable. Cholecystectomy clips are seen. No renal calculus. No focal renal lesion. No hydronephrosis. No hydroureter. Bladder is markedly distended. Moderate colonic stool content is seen. No small or large bowel dilatation. No bowel obstruction. No abdominal or pelvic ascites. No abdominal or pelvic lymphadenopathy. A few mildly prominent retroperi toneal and right upper quadrant lymph nodes are seen, possibly reactive. In general these are similar to prior examination. Bones: Symphysis pubis degenerative changes are seen. No aggressive osseous lesion is seen. IMPRESSION: 1. No renal tract calculus. 2. Bladder is markedly distended, can be correlated for possible voluntary or involuntary causes of urinary retention. 3. Patchy opacities right lower lobe may represent atelectasis or developing consolidation. 4. Hepatomegaly. 5. Left adrenal myelolipoma. Electronically signed by: Sammy Barrientos MD (01/29/2021 12:15 AM) [facility]A
--- NOTE | 2021-01-29 01:56 | ED.ADGEN ---
Past Medical History Past Medical History: COPD, Diabetes-Type I Additional Past Medical Histor: PHILLIPS, hydranitis, INOCENCIA Past Surgical History: Cholecystectomy, Hysterectomy, Tonsillectomy, Other Additional Past Surgical Histo: NASAL SEPTAL, hernia repair Smoking Status: Current Every Day Smoker Alcohol Use: None Drug Use: None General Adult EDM: Chief Complaint: MULTIPLE COMPLAINTS HPI: HPI: Patient is a 40 year old [f__sex] who presents with [] Review of Systems: Review of Systems: Constitutional: Denies fever or chills. [] Eyes: Denies change in visual acuity. [] HENT: Denies nasal congestion or sore throat. [] Respiratory: Denies cough or shortness of breath. [] Cardiovascular: Denies chest pain or edema. [] GI: Denies abdominal pain, nausea, vomiting, bloody stools or diarrhea. [] : Denies dysuria. [] Musculoskeletal: Denies back pain or joint pain. [] Integument: Denies rash. [] Neurologic: Denies headache, focal weakness or sensory changes. [] Endocrine: Denies polyuria or polydipsia. [] Lymphatic: Denies swollen glands. [] Psychiatric: Denies depression or anxiety. [] Current Medications: Current Medications Medications (Trade) Dose Ordered Sig/Taqueria Start Time Stop Time Status Last Admin Dose Admin Insulin Human Regular (HumuLIN R VIAL) 10 unit 1X ONCE 01/28/21 23:45 01/28/21 23:49 DC 01/29/21 00:57 10 UNIT Morphine Sulfate (Morphine Sulfate) 5 mg 1X ONCE 01/28/21 22:45 01/28/21 22:53 DC 01/28/21 23:04 5 MG Ondansetron HCl (Zofran) 4 mg 1X ONCE 01/28/21 22:45 01/28/21 22:53 DC 01/28/21 23:01 4 MG Allergies: Allergies: Allergies Coded Allergies Type Severity Reaction Last Updated Verified ketorolac Allergy Severe rash 01/14/21 Yes levofloxacin Allergy Intermediate Rash 01/14/21 Yes shellfish derived Allergy Intermediate RASH/ITCH 01/14/21 Yes vancomycin Allergy Intermediate Rash 01/14/21 Yes Physical Exam: PE: Constitutional: Well developed, well nourished, no acute distress, non-toxic appearance. [] HENT: Normocephalic, atraumatic, bilateral external ears normal, oropharynx moist, no oral exudates, nose normal. [] Eyes: PERRLA, EOMI, conjunctiva normal, no discharge. [] Neck: Normal range of motion, no tenderness, supple, no stridor. [] Cardiovascular:Heart rate regular rhythm, no murmur [] Lungs & Thorax: Bilateral breath sounds clear to auscultation [] Abdomen: Bowel sounds normal, soft, no tenderness, no masses, no pulsatile masses. [] Skin: Warm, dry, no erythema, no rash. [] Back: No tenderness, no CVA tenderness. [] Extremities: No tenderness, no cyanosis, no clubbing, ROM intact, no edema. [] Neurologic: Alert and oriented X 3, normal motor function, normal sensory function, no focal deficits noted. [] Psychologic: Affect normal, judgement normal, mood normal. [] Current Patient Data: Labs: Laboratory Tests Test 01/28/21 21:35 01/28/21 21:37 01/28/21 21:45 01/28/21 21:54 Urine Collection Type Void Urine Color Yellow Urine Clarity Clear Urine pH 6.0 (<5.0-8.0) Urine Specific Holt >=1.030 (1.000-1.030) Urine Protein Negative mg/dL (NEG-TRACE) Urine Glucose (UA) >=1000 mg/dL (NEG) Urine Ketones (Stick) Negative mg/dL (NEG) Urine Blood Large (NEG) Urine Nitrite Negative (NEG) Urine Bilirubin Negative (NEG) Urine Urobilinogen Dipstick 0.2 mg/dL (0.2 mg/dL) Urine Leukocyte Esterase Negative (NEG) Urine RBC >40 /HPF (0-2) Urine WBC 1-4 /HPF (0-4) Urine Squamous Epithelial Cells Few /LPF Urine Bacteria Few /HPF (0-FEW) POC Urine HCG, Qualitative Hcg negative (Negative) Glucose (Fingerstick) 469 mg/dL (70-99) H White Blood Count 9.4 x10^3/uL (4.0-11.0) Red Blood Count 4.62 x10^6/uL (3.50-5.40) Hemoglobin 14.0 g/dL (12.0-15.5) Hematocrit 41.3 % (36.0-47.0) Mean Corpuscular Volume 90 fL (79-100) Mean Corpuscular Hemoglobin 30 pg (25-35) Mean Corpuscular Hemoglobin Concent 34 g/dL (31-37) Red Cell Distribution Width 16.2 % (11.5-14.5) H Platelet Count 152 x10^3/uL (140-400) Neutrophils (%) (Auto) 72 % (31-73) Lymphocytes (%) (Auto) 22 % (24-48) L Monocytes (%) (Auto) 5 % (0-9) Eosinophils (%) (Auto) 1 % (0-3) Basophils (%) (Auto) 1 % (0-3) Neutrophils # (Auto) 6.7 x10^3/uL (1.8-7.7) Lymphocytes # (Auto) 2.0 x10^3/uL (1.0-4.8) Monocytes # (Auto) 0.4 x10^3/uL (0.0-1.1) Eosinophils # (Auto) 0.1 x10^3/uL (0.0-0.7) Basophils # (Auto) 0.1 x10^3/uL (0.0-0.2) Sodium Level 138 mmol/L (136-145) Potassium Level 3.7 mmol/L (3.5-5.1) Chloride Level 101 mmol/L (98-107) Carbon Dioxide Level 29 mmol/L (21-32) Anion Gap 8 (6-14) Blood Urea Nitrogen 6 mg/dL (7-20) L Creatinine 0.8 mg/dL (0.6-1.0) Estimated GFR (Cockcroft-Gault) 79.4 BUN/Creatinine Ratio 8 (6-20) Glucose Level 444 mg/dL (70-99) H Calcium Level 9.2 mg/dL (8.5-10.1) Total Bilirubin 0.2 mg/dL (0.2-1.0) Aspartate Amino Transferase (AST) 47 U/L (15-37) H Alanine Aminotransferase (ALT) 94 U/L (14-59) H Alkaline Phosphatase 135 U/L (46-116) H Total Protein 7.0 g/dL (6.4-8.2) Albumin 3.7 g/dL (3.4-5.0) Albumin/Globulin Ratio 1.1 (1.0-1.7) Test 01/28/21 23:16 01/29/21 01:51 Glucose (Fingerstick) 412 mg/dL (70-99) H 302 mg/dL (70-99) H Laboratory Tests 01/28/21 21:54 Laboratory Tests 01/28/21 21:54 Vital Signs: Vital Signs Date Time Temp Pulse Resp B/P (MAP) Pulse Ox O2 Delivery O2 Flow Rate FiO2 01/29/21 00:12 114 25 120/63 (82) 95 Room Air 01/28/21 21:35 98.6 98.6 EKG: EKG: [] Heart Score: C/O Chest Pain: N/A Risk Factors: Risk Factors: DM, Current or recent (<one month) smoker, HTN, HLP, family history of CAD, obesity. Risk Scores: Score 0 - 3: 2.5% MACE over next 6 weeks - Discharge Home Score 4 - 6: 20.3% MACE over next 6 weeks - Admit for Clinical Observation Score 7 - 10: 72.7% MACE over next 6 weeks - Early Invasive Strategies Radiology/Procedures: Radiology/Procedures: [] Course & Med Decision Making: Course & Med Decision Making Pertinent Labs and Imaging studies reviewed. (See chart for details) [] Dragon Disclaimer: Dragon Disclaimer: This electronic medical record was generated, in whole or in part, using a voice recognition dictation system. Departure Departure Impression: Primary Impression: Urinary tract infection Additional Impression: Poorly controlled type 2 diabetes mellitus Disposition: HOME / SELF CARE / HOMELESS Condition: STABLE Referrals: JANET FULLER (PCP) Patient Instructions: Hyperglycemia Problem Qualifiers NELLY ZAZUETA MD Jan 29, 2021 01:56
[2021-01-29] MEDS ORDERED: CEPH500C PO (01:58)
[2021-01-29 02:14] VITALS: BP 114/69
== END 2021-01-29 02:23 | disposition home or self-care (01) ==
LOC: ER 21:26
DX: N39.0 Urinary tract infection, site not specified (principal); E11.65 Type 2 diabetes mellitus with hyperglycemia; J44.9 Chronic obstructive pulmonary disease, unspecified; F17.200 Nicotine dependence, unspecified, uncomplicated; Z90.49 Acquired absence of other specified parts of digestive tract; Z90.710 Acquired absence of both cervix and uterus; Z88.1 Allergy status to other antibiotic agents; Z88.6 Allergy status to analgesic agent; Z91.013 Allergy to seafood
CPT/HCPCS: 36415; 74176; 80053; 81001; 81025; 82962; 85025; 96374; 96375; 96376; 99285; J1815; J2270; J2405

== ENCOUNTER 2021-03-02 13:58 | Emergency (ER) | payer BC ==
[~2021-03-02] VITALS: Ht 162.6 cm; Wt 84.0 kg
[~2021-03-02 13:58] MED LIST changes: +CEPH500C PO
[2021-03-02] MEDS ORDERED: MORPHINE SULFATE 4 MG/ML INJ. IV ONE (15:45)
[2021-03-02] MEDS ORDERED: ONDANSETRON PF 4 MG/2 ML VIAL. IVP ONE ×2 (15:45→17:30)
[2021-03-02 15:58] LABS: BASO # 0.1 x10^3/uL (0.0-0.2); BASO % 1 % (0-3); EOS # 0.1 x10^3/uL (0.0-0.7); EOS % 1 % (0-3); HEMATOCRIT 40.2 % (36.0-47.0); HEMOGLOBIN 13.6 g/dL (12.0-15.5); LYMPH # 2.2 x10^3/uL (1.0-4.8); LYMPH % 26 % (24-48); MEAN CORPUSCULAR HEMOGLOBIN 30 pg (25-35); MEAN CORPUSCULAR HGB CONC 34 g/dL (31-37); MEAN CORPUSCULAR VOLUME 88 fL (79-100); MONO # 0.5 x10^3/uL (0.0-1.1); MONO % 6 % (0-9); NEUT # 5.6 x10^3/uL (1.8-7.7); NEUT % 67 % (31-73); PLATELET COUNT 171 x10^3/uL (140-400); RED BLOOD COUNT 4.56 x10^6/uL (3.50-5.40); RED CELL DISTRIBUTION WIDTH 16.4 % (11.5-14.5); WHITE BLOOD COUNT 8.4 x10^3/uL (4.0-11.0)
[2021-03-02 16:00] LABS: CALCIUM 9.1 mg/dL (8.5-10.1); CREATININE 0.8 mg/dL (0.6-1.0); GFR 79.4
[2021-03-02 16:03] LABS: BILIRUBIN,URINE NEGATIVE (NEG); CLARITY,URINE CLEAR; COLOR,URINE YELLOW; NITRITE,URINE NEGATIVE (NEG); PROTEIN,URINE NEGATIVE (NEG-TRACE); UROBILINOGEN,URINE 0.2 mg/dL (0.2 mg/dL)
[2021-03-02 16:05] LABS: ALBUMIN 3.6 g/dL (3.4-5.0); TOTAL BILIRUBIN 0.4 mg/dL (0.2-1.0); TOTAL PROTEIN 7.3 g/dL (6.4-8.2)
[2021-03-02 16:08] LABS: BACTERIA,URINE 0 /HPF (0-FEW); RBC,URINE 0 /HPF (0-2)
[2021-03-02] MEDS ORDERED: IOHEXOL 300 MG/ML 100ML VIAL. IV ONE (16:15)
--- NOTE | 2021-03-02 16:52 | PHYS DOC ---
Past Medical History Past Medical History: Anxiety, COPD, Depression, Diabetes-Type I, Diabetes-Type II, Other Additional Past Medical Histor: PHILLIPS STAGE III, hydranitis,INOCENCIA,PORTAL HTN Past Surgical History: Cholecystectomy, Hysterectomy, Tonsillectomy, Other Additional Past Surgical Histo: NASAL SEPTAL, hernia repair Smoking Status: Former Smoker Alcohol Use: None Drug Use: None General Adult EDM: Chief Complaint: ABDOMINAL PAIN HPI: HPI: Patient is a 40 year old female with a history of diabetes type 1 on insulin pump, depression, who presents today complaining of 9 out of 10 sharp right flank pain radiating to the right upper quadrant, abdominal bloating, nausea and vomiting, symptoms began yesterday. Patient denies any chance she is const ipated. Denies any hematemesis or melena. She states she was not able to put her insulin pump on her stomach today because it is bloated and she does not see any where she could insert the needle Review of Systems: Review of Systems: Constitutional: Denies fever or chills. [] Eyes: Denies change in visual acuity. [] HENT: Denies nasal congestion or sore throat. [] Respiratory: Denies cough or shortness of breath. [] Cardiovascular: Denies chest pain or edema. [] GI: Reports abdominal pain, nausea vomiting, abdominal bloating, denies diarrhea : Denies dysuria. [] Musculoskeletal: Denies back pain or joint pain. [] Integument: Denies rash. [] Neurologic: Denies headache, focal weakness or sensory changes. [] Endocrine: Denies polyuria or polydipsia. [] Lymphatic: Denies swollen glands. [] Psychiatric: Denies depression or anxiety. [] Heart Score: C/O Chest Pain: N/A Risk Factors: Risk Factors: DM, Current or recent (<one month) smoker, HTN, HLP, family history of CAD, obesity. Risk Scores: Score 0 - 3: 2.5% MACE over next 6 weeks - Discharge Home Score 4 - 6: 20.3% MACE over next 6 weeks - Admit for Clinical Observation Score 7 - 10: 72.7% MACE over next 6 weeks - Early Invasive Strategies Current Medications: Current Medications Medications (Trade) Dose Ordered Sig/Taqueria Start Time Stop Time Status Last Admin Dose Admin Iohexol (Omnipaque 300 Mg/ml) 75 ml 1X ONCE 03/02/21 16:15 03/02/21 16:16 DC Morphine Sulfate (Morphine Sulfate) 4 mg 1X ONCE 03/02/21 15:45 03/02/21 15:46 DC 03/02/21 16:03 4 MG Ondansetron HCl (Zofran) 4 mg 1X ONCE 03/02/21 15:45 03/02/21 15:46 DC 03/02/21 16:03 4 MG Allergies: Allergies: Allergies Coded Allergies Type Severity Reaction Last Updated Verified ketorolac Allergy Severe rash 01/14/21 Yes levofloxacin Allergy Intermediate Rash 01/14/21 Yes shellfish derived Allergy Intermediate RASH/ITCH 01/14/21 Yes vancomycin Allergy Intermediate Rash 01/14/21 Yes Physical Exam: PE: Constitutional: Well developed, well nourished, no acute distress, non-toxic appearance. [] HENT: Normocephalic, atraumatic, bilateral external ears normal, oropharynx moist, no oral exudates, nose normal. [] Eyes: PERRLA, EOMI, conjunctiva normal, no discharge. [] Neck: Normal range of motion, no tenderness, supple, no stridor. [] Cardiovascular:Heart rate regular rhythm, no murmur [] Lungs & Thorax: Bilateral breath sounds clear to auscultation [] Abdomen: Rounded abdomen. Bowel sounds normal, soft, no tenderness, no masses, no pulsatile masses. [] Skin: Warm, dry, no erythema, no rash. [] Back: No tenderness, no CVA tenderness. [] Extremities: No tenderness, no cyanosis, no clubbing, ROM intact, no edema. [] Neurologic: Alert and oriented X 3, normal motor function, normal sensory function, no focal deficits noted. [] Psychologic: Affect normal, judgement normal, mood normal. [] Current Patient Data: Labs: Laboratory Tests Test 03/02/21 14:07 03/02/21 15:47 Urine Collection Type Unknown Urine Color Yellow Urine Clarity Clear Urine pH 6.0 (<5.0-8.0) Urine Specific [place] >=1.030 (1.000-1.030) Urine Protein Negative mg/dL (NEG-TRACE) Urine Glucose (UA) >=1000 mg/dL (NEG) Urine Ketones (Stick) Negative mg/dL (NEG) Urine Blood Negative (NEG) Urine Nitrite Negative (NEG) Urine Bilirubin Negative (NEG) Urine Urobilinogen Dipstick 0.2 mg/dL (0.2 mg/dL) Urine Leukocyte Esterase Negative (NEG) Urine RBC 0 /HPF (0-2) Urine WBC 1-4 /HPF (0-4) Urine Squamous Epithelial Cells Mod /LPF Urine Bacteria 0 /HPF (0-FEW) White Blood Count 8.4 x10^3/uL (4.0-11.0) Red Blood Count 4.56 x10^6/uL (3.50-5.40) Hemoglobin 13.6 g/dL (12.0-15.5) Hematocrit 40.2 % (36.0-47.0) Mean Corpuscular Volume 88 fL (79-100) Mean Corpuscular Hemoglobin 30 pg (25-35) Mean Corpuscular Hemoglobin Concent 34 g/dL (31-37) Red Cell Distribution Width 16.4 % (11.5-14.5) H Platelet Count 171 x10^3/uL (140-400) Neutrophils (%) (Auto) 67 % (31-73) Lymphocytes (%) (Auto) 26 % (24-48) Monocytes (%) (Auto) 6 % (0-9) Eosinophils (%) (Auto) 1 % (0-3) Basophils (%) (Auto) 1 % (0-3) Neutrophils # (Auto) 5.6 x10^3/uL (1.8-7.7) Lymphocytes # (Auto) 2.2 x10^3/uL (1.0-4.8) Monocytes # (Auto) 0.5 x10^3/uL (0.0-1.1) Eosinophils # (Auto) 0.1 x10^3/uL (0.0-0.7) Basophils # (Auto) 0.1 x10^3/uL (0.0-0.2) Sodium Level 140 mmol/L (136-145) Potassium Level 4.0 mmol/L (3.5-5.1) Chloride Level 103 mmol/L (98-107) Carbon Dioxide Level 27 mmol/L (21-32) Anion Gap 10 (6-14) Blood Urea Nitrogen 7 mg/dL (7-20) Creatinine 0.8 mg/dL (0.6-1.0) Estimated GFR (Cockcroft-Gault) 79.4 BUN/Creatinine Ratio 9 (6-20) Glucose Level 345 mg/dL (70-99) H Calcium Level 9.1 mg/dL (8.5-10.1) Total Bilirubin 0.4 mg/dL (0.2-1.0) Aspartate Amino Transferase (AST) 76 U/L (15-37) H Alanine Aminotransferase (ALT) 142 U/L (14-59) H Alkaline Phosphatase 163 U/L (46-116) H Total Protein 7.3 g/dL (6.4-8.2) Albumin 3.6 g/dL (3.4-5.0) Albumin/Globulin Ratio 1.0 (1.0-1.7) Laboratory Tests 03/02/21 15:47 Laboratory Tests 03/02/21 15:47 Vital Signs: Vital Signs Date Time Temp Pulse Resp B/P (MAP) Pulse Ox O2 Delivery O2 Flow Rate FiO2 03/02/21 16:03 19 98 Room Air 03/02/21 15:22 98.2 92 142/72 (95) 98.2 EKG: EK interpreted by Dr. Parks sinus rhythm heart rate 90 no STEMI [] Radiology/Procedures: Radiology/Procedures: []REASON: abd pain, distention PROCEDURE: CT ABD PELV W/ IV CONTRST ONLY CT abdomen pelvis with contrast. HISTORY: Abdominal pain, distention CT abdomen pelvis was done using 75 mL Omnipaque 300 contrast. Comparison is made with a study from January 29. Lung bases are clear. There is no effusion. A liver lesion is not identified. Patient's had a cholecystectomy. There is mild fatty change in the liver. Spleen is unremarkable. There is a myolipoma of the left adrenal gland measuring 2.5 cm. Right adrenal gland is normal. Pancreas is unremarkable. There is no mass or hydronephrosis in the kidneys. There is no free air or ascites or bowel obstruction. Appendix is normal. Patient's had a hysterectomy. IMPRESSION: 1. No bowel obstruction. 2. Mild fatty change in the liver. 3. 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 4. No abdominal or pelvic mass or acute finding noted. PQRS Compliance Statement: One or more of the following individualized dose reduction techniques were utilized for this examination: 1. Automated exposure control 2. Adjustment of the mA and/or kV according to patient size 3. Use of iterative reconstruction technique Electronically signed by: Rj Winslow MD (03/02/2021 5:01 PM) [facility] DICTATED and SIGNED BY: RJ WINSLOW MD DATE: 03/02/21 [id number] Course & Med Decision Making: Course & Med Decision Making Pertinent Labs and Imaging studies reviewed. (See chart for details) This is a 40-year-old female patient presented to the ED today complaining of abdominal pain, flank pain, nausea, vomiting, symptoms since yesterday. UA is negative for infection, CBC with no acute findings, CMP with slightly elevated liver enzymes, this is normal for this patient, Glucose 345. Given insulin in the ED, CT of the abdomen and pelvis is negative. Discharge to home. Follow-up with PCP. Amalia Disclaimer: Amalia Disclaimer: This electronic medical record was generated, in whole or in part, using a voice recognition dictation system. Departure Departure Impression: Primary Impression: Hyperglycemia Additional Impression: Abdominal pain Qualified Codes: R10.84 - Generalized abdominal pain Disposition: HOME / SELF CARE / HOMELESS Condition: STABLE Referrals: JANET FULLER (PCP) follow up next week Patient Instructions: Abdominal Pain, Hyperglycemia Additional Instructions: You were evaluated in the emergency room, your blood glucose was 345. Please continue using your insulin at home. Follow-up with your doctor in the course of this week or next week ROXANN DEWITT APRN Mar 02, 2021 16:52
--- NOTE | 2021-03-02 17:04 | RAD ---
CT abdomen pelvis with contrast. HISTORY: Abdominal pain, distention CT abdomen pelvis was done using 75 mL Omnipaque 300 contrast. Comparison is made with a study from [facility] 1. Lung bases are clear. There is no effusion. A liver lesion is not identified. Patient's had a cholecystectomy. There is mild fatty change in the liver. Spleen is unremarkable. There is a myolipom a of the left adrenal gland measuring 2.5 cm. Right adrenal gland is normal. Pancreas is unremarkable . There is no mass or hydronephrosis in the kidneys. There is no free air or ascites or bowel obstruc tion. Appendix is normal. Patient's had a hysterectomy. IMPRESSION: 1. No bowel obstruction. 2. Mild fatty change in the liver. 3. 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 4. No abdominal or pelvic mass or acute finding noted. PQRS Compliance Statement: One or more of the following individualized dose reduction techniques were utilized for this examinat ion: 1. Automated exposure control 2. Adjustment of the mA and/or kV according to patient size 3. Use of iterative reconstruction technique Electronically signed by: Rj Winslow MD (03/02/2021 5:01 PM) [facility]
[2021-03-02] MEDS ORDERED: INSULIN REGULAR 100 UNIT/ML 3ML VIAL. IV ONE (17:15)
[2021-03-02] MEDS ORDERED: CONTRAST GIVEN. MC PRN (17:15)
[2021-03-02] MEDS ORDERED: MORPHINE SULFATE 2 MG/ML INJ. IV ONE (17:30)
[2021-03-02 17:55] VITALS: BP 144/89
--- NOTE | 2021-03-03 02:14 | EKG ---
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
== END 2021-03-02 18:20 | disposition home or self-care (01) ==
LOC: ER 13:58
DX: E11.65 Type 2 diabetes mellitus with hyperglycemia (principal); R10.84 Generalized abdominal pain; R11.2 Nausea with vomiting, unspecified; J44.9 Chronic obstructive pulmonary disease, unspecified; G47.33 Obstructive sleep apnea (adult) (pediatric); Z90.49 Acquired absence of other specified parts of digestive tract; Z90.710 Acquired absence of both cervix and uterus; Z96.41 Presence of insulin pump (external) (internal); Z88.8 Allergy status to other drugs, medicaments and biological substances; Z88.1 Allergy status to other antibiotic agents; Z91.013 Allergy to seafood
CPT/HCPCS: 36415; 74177; 80053; 81001; 85025; 93005; 96374; 96375; 96376; 99285; J1815; J2270; J2405

== ENCOUNTER 2021-03-27 20:30 | Emergency (ER) | payer BC ==
[~2021-03-27] VITALS: Ht 165.1 cm; Wt 86.3 kg
--- NOTE | 2021-03-28 02:38 | ED.ADGEN ---
Past Medical History Past Medical History: Anxiety, COPD, Depression, Diabetes-Type I, Diabetes-Type II, Other Additional Past Medical Histor: PHILLIPS STAGE III, hydranitis,INOCENCIA,PORTAL HTN Past Surgical History: Cholecystectomy, Hysterectomy, Tonsillectomy, Other Additional Past Surgical Histo: NASAL SEPTAL, hernia repair Smoking Status: Former Smoker Alcohol Use: None Drug Use: None General Adult EDM: Chief Complaint: HYPERGLYCEMIA HPI: HPI: Patient is a 40 year old female coming in for hyperglycemia. Patient states that her blood sugar was on 560 at home, checked emergency department was reading is greater than 600. Patient states she had run of supplies for, but has been using sliding scale insulin. States she has not been without her insulin. States she ate one time today and gave herself 30 units subcu. Patient also states that she has been having right upper quadrant abdominal pain and bloating, as well as suprapubic abdominal pain. States she has been urinating more frequently but denies any dysuria or hematuria. Has had some n ausea but no vomiting. States she has had regular bowel movements. States last DKA was about 4 months ago. Patient later stated that she also has been out of her Lantus and is waiting for [facility] to approve her sugars in the next approximately 2 days. Review of Systems: Review of Systems: All other systems within normal limits except for as noted in the HPI Current Medications: Current Medications Medications (Trade) Dose Ordered Sig/Taqueria Start Time Stop Time Status Last Admin Dose Admin Fentanyl Citrate (Fentanyl 2ml Vial) 100 mcg STK-MED ONCE 03/28/21 02:42 03/28/21 02:42 DC Info (CONTRAST GIVEN -- Rx MONITORING) 1 each PRN DAILY PRN 03/28/21 03:45 03/30/21 03:44 Insulin Glargine (Lantus Syringe) 33 unit 1X ONCE 03/28/21 06:00 03/28/21 06:01 Insulin Human Regular (HumuLIN R VIAL) 10 unit 1X ONCE 03/28/21 04:00 03/28/21 04:01 DC 03/28/21 04:06 10 UNIT Iohexol (Omnipaque 300 Mg/ml) 75 ml 1X ONCE 03/28/21 04:00 03/28/21 04:01 DC 03/28/21 03:44 75 ML Morphine Sulfate (Morphine Sulfate) 4 mg 1X ONCE 03/28/21 04:15 03/28/21 04:27 DC 03/28/21 04:16 4 MG Ondansetron HCl (Zofran) 4 mg STK-MED ONCE 03/28/21 02:42 03/28/21 02:42 DC Ringer's Solution 500 ml @ 1,000 mls/hr 1X ONCE 03/28/21 04:15 03/28/21 04:44 DC 03/28/21 04:16 1,000 MLS/HR Allergies: Allergies: Allergies Coded Allergies Type Severity Reaction Last Updated Verified ketorolac Allergy Severe rash 01/14/21 Yes levofloxacin Allergy Intermediate Rash 01/14/21 Yes shellfish derived Allergy Intermediate RASH/ITCH 01/14/21 Yes vancomycin Allergy Intermediate Rash 01/14/21 Yes Physical Exam: PE: Constitutional: Well developed, well nourished, no acute distress, non-toxic appearance. [] HENT: Normocephalic, atraumatic, bilateral external ears normal, nose normal. [] Eyes: PERRLA, conjunctiva normal, no discharge. [] Neck: No rigidity, supple, no stridor. [] Cardiovascular: Regular rate and rhythm, brisk cap refill [] Lungs & Thorax: Non labored symmetric respirations, no tachypnea or respiratory distress [] Abdomen: Soft, distended and edematous, generalized tenderness Skin: Warm, dry, no erythema, no rash. [] Back: Unremarkable Extremities: No deformities, range of motion grossly intact, no lower extremity edema [] Neurologic: Alert and oriented X 3, no focal deficits noted. [] Psychologic: Affect normal, judgement normal, mood normal. [] Current Patient Data: Labs: Laboratory Tests Test 03/27/21 21:53 03/28/21 00:30 03/28/21 02:41 03/28/21 02:53 Glucose (Fingerstick) 530 mg/dL (70-99) *H Urine Collection Type Unknown Urine Color Yellow Urine Clarity Clear Urine pH 5.0 (<5.0-8.0) Urine Specific [place] >=1.030 (1.000-1.030) Urine Protein Negative mg/dL (NEG-TRACE) Urine Glucose (UA) >=1000 mg/dL (NEG) Urine Ketones (Stick) Negative mg/dL (NEG) Urine Blood Large (NEG) Urine Nitrite Negative (NEG) Urine Bilirubin Negative (NEG) Urine Urobilinogen Dipstick 0.2 mg/dL (0.2 mg/dL) Urine Leukocyte Esterase Negative (NEG) Urine RBC Tntc /HPF (0-2) Urine WBC 5-10 /HPF (0-4) Urine Squamous Epithelial Cells Few /LPF Urine Bacteria Moderate /HPF (0-FEW) Urine Mucus Slight /LPF Sodium Level 130 mmol/L (136-145) L Potassium Level 4.5 mmol/L (3.5-5.1) Chloride Level 94 mmol/L (98-107) L Carbon Dioxide Level 30 mmol/L (21-32) Anion Gap 6 (6-14) Blood Urea Nitrogen 6 mg/dL (7-20) L Creatinine 0.8 mg/dL (0.6-1.0) Estimated GFR (Cockcroft-Gault) 79.4 BUN/Creatinine Ratio 8 (6-20) Glucose Level 546 mg/dL (70-99) *H Calcium Level 9.1 mg/dL (8.5-10.1) Phosphorus Level 4.5 mg/dL (2.6-4.7) Magnesium Level 2.0 mg/dL (1.8-2.4) Total Bilirubin 0.6 mg/dL (0.2-1.0) Aspartate Amino Transferase (AST) 76 U/L (15-37) H Alanine Aminotransferase (ALT) 116 U/L (14-59) H Alkaline Phosphatase 123 U/L (46-116) H Troponin I Quantitative < 0.017 ng/mL (0.000-0.055) ZE-Nud-Q-Type Natriuretic Peptide 10 pg/mL (0-124) Total Protein 7.5 g/dL (6.4-8.2) Albumin 3.4 g/dL (3.4-5.0) Albumin/Globulin Ratio 0.8 (1.0-1.7) L White Blood Count 9.5 x10^3/uL (4.0-11.0) Red Blood Count 4.39 x10^6/uL (3.50-5.40) Hemoglobin 13.3 g/dL (12.0-15.5) Hematocrit 39.1 % (36.0-47.0) Mean Corpuscular Volume 89 fL (79-100) Mean Corpuscular Hemoglobin 30 pg (25-35) Mean Corpuscular Hemoglobin Concent 34 g/dL (31-37) Red Cell Distribution Width 16.4 % (11.5-14.5) H Platelet Count 196 x10^3/uL (140-400) Neutrophils (%) (Auto) 66 % (31-73) Lymphocytes (%) (Auto) 25 % (24-48) Monocytes (%) (Auto) 6 % (0-9) Eosinophils (%) (Auto) 1 % (0-3) Basophils (%) (Auto) 2 % (0-3) Neutrophils # (Auto) 6.3 x10^3/uL (1.8-7.7) Lymphocytes # (Auto) 2.4 x10^3/uL (1.0-4.8) Monocytes # (Auto) 0.6 x10^3/uL (0.0-1.1) Eosinophils # (Auto) 0.1 x10^3/uL (0.0-0.7) Basophils # (Auto) 0.1 x10^3/uL (0.0-0.2) Lactic Acid Level 2.2 mmol/L (0.4-2.0) H Test 03/28/21 03:00 POC Venous pH 7.39 (7.32-7.42) POC Venous pCO2 47 mmHg (41-51) POC Venous pO2 95 mmHg (20-40) H Venous Blood HCO3 28 mmol/L (24-28) POC Venous O2 Saturation (Ya) 97 % POC FiO2 21.0 Laboratory Tests 03/28/21 02:53 Laboratory Tests 03/28/21 02:41 Vital Signs: Vital Signs Date Time Temp Pulse Resp B/P (MAP) Pulse Ox O2 Delivery O2 Flow Rate FiO2 03/28/21 04:16 98 Room Air 03/27/21 23:02 97.9 97 144/92 (109) 97.9 EKG: EKG: Sinus rhythm, heart rate 85 bpm, left axis deviation, no ST elevation or depression, normal intervals. [] Heart Score: C/O Chest Pain: No HEART Score for Chest Pain: HEART Score for Chest Pain Response (Comments) Value History Slighlty/Non-Suspicious 0 ECG Normal 0 Age < 45 0 Risk Factors 1 or 2 Risk Factors 1 Troponin < Normal Limit 0 Total 1 Risk Factors: Risk Factors: DM, Current or recent (<one month) smoker, HTN, HLP, family history of CAD, obesity. Risk Scores: Score 0 - 3: 2.5% MACE over next 6 weeks - Discharge Home Score 4 - 6: 20.3% MACE over next 6 weeks - Admit for Clinical Observation Score 7 - 10: 72.7% MACE over next 6 weeks - Early Invasive Strategies Radiology/Procedures: Radiology/Procedures: [facility] [address] [place] [address] IMAGING REPORT Signed PATIENT: RON REYNA ACCOUNT: [id number] : 1980 LOCATION: ER AGE: 40 SEX: F EXAM STATUS: REG ER ORD. PHYSICIAN: SALLIE HENSON MD REASON: distention PROCEDURE: CT ABD PELV W/ IV CONTRST ONLY EXAMINATION: CT abdomen and pelvis with IV contrast. INDICATION:40 years, Female, distention. TECHNIQUE: Axial CT images of the abdomen and pelvis were obtained. Coronal and sagittal reformatted performed. COMPARISON: 03/02/2021. Exposure: One or more of the following individualized dose reduction techniques were utilized for this examination: 1. Automated exposure control 2. Adjustment of the mA and/or kV according to patient size 3. Use of iterative reconstruction technique. FINDINGS: LOWER CHEST: Unremarkable ABDOMEN/PELVIS: Enlarged left and caudate lobes with mild surface nodularity. Mild diffuse hepatic steatosis. No suspicious focal hepatic lesion. Cholecystectomy. No biliary ductal dilatation. Borderline splenomegaly measures up to 13.6 cm in length. Mildly atrophic pancreatic parenchyma. Unchanged 2.7 cm left adrenal myelolipoma. Right adrenal gland is normal. No hydronephrosis or masses. No bowel dilatation or wall thickening. Appendix is normal. Normal caliber abdominal aorta. Mesenteric arteries and portal vein are patent. No pn eumoperitoneum or ascites. Nonspecific nonenlarged retroperitoneal lymph nodes, likely reactive, unchanged since prior exam. No pelvic lymphadenopathy by size criteria. Unremarkable urinary bladder. Hysterectomy. No suspicious pelvic masses. MUSCULOSKELETAL: No acute osseous process. Unchanged dystrophic calcification in the subcutaneous tissue of the right anterior abdominal wall likely benign. IMPRESSION: 1. No acute abnormality in the abdomen or pelvis. 2. Morphology of the liver may reflect chronic disease on a background of steatosis. Clinical correlation is advised. 3. Other chronic/incidental findings, as described above. Electronically signed by: Zafar Key MD (03/28/2021 4:27 AM) [facility] DICTATED and SIGNED BY: ZAFAR KEY MD DATE: 03/28/21 [id number] [] Course & Med Decision Making: Course & Med Decision Making Pertinent Labs and Imaging studies reviewed. (See chart for details) [] Work-up unremarkable other than hyperglycemia. Not in DKA. Given fluids and insulin. Patient will contact her special education paraeducator today. Given her home dose of Lantus in the ED. Amalia Disclaimer: Amalia Disclaimer: This electronic medical record was generated, in whole or in part, using a voice recognition dictation system. Departure Departure Impression: Primary Impression: Hyperglycemia Disposition: 01 HOME / SELF CARE / HOMELESS Condition: STABLE Referrals: BLANCA VILLATORO PA-C (PCP) Patient Instructions: Hyperglycemia SALLIE HENSON MD Mar 28, 2021 02:38
[2021-03-28] MEDS ORDERED: fentaNYL PF VIAL 100 MCG/2 ML VIAL ONE (02:42)
[2021-03-28] MEDS ORDERED: ONDANSETRON PF 4 MG/2 ML VIAL. ONE (02:42)
[2021-03-28 02:43] LABS: BILIRUBIN,URINE NEGATIVE (NEG); CLARITY,URINE CLEAR; COLOR,URINE YELLOW; NITRITE,URINE NEGATIVE (NEG); PROTEIN,URINE NEGATIVE (NEG-TRACE); UROBILINOGEN,URINE 0.2 mg/dL (0.2 mg/dL)
[2021-03-28] MEDS ORDERED: fentaNYL PF VIAL 100 MCG/2 ML VIAL IVP ONE (02:45)
[2021-03-28 02:51] LABS: RBC,URINE TNTC /HPF (0-2)
[2021-03-28 02:52] LABS: BACTERIA,URINE MODERATE /HPF (0-FEW)
[2021-03-28 03:00] LABS: BASO # 0.1 x10^3/uL (0.0-0.2); BASO % 2 % (0-3); EOS # 0.1 x10^3/uL (0.0-0.7); EOS % 1 % (0-3); HEMATOCRIT 39.1 % (36.0-47.0); HEMOGLOBIN 13.3 g/dL (12.0-15.5); LYMPH # 2.4 x10^3/uL (1.0-4.8); LYMPH % 25 % (24-48); MEAN CORPUSCULAR HEMOGLOBIN 30 pg (25-35); MEAN CORPUSCULAR HGB CONC 34 g/dL (31-37); MEAN CORPUSCULAR VOLUME 89 fL (79-100); MONO # 0.6 x10^3/uL (0.0-1.1); MONO % 6 % (0-9); NEUT # 6.3 x10^3/uL (1.8-7.7); NEUT % 66 % (31-73); PLATELET COUNT 196 x10^3/uL (140-400); RED BLOOD COUNT 4.39 x10^6/uL (3.50-5.40); RED CELL DISTRIBUTION WIDTH 16.4 % (11.5-14.5); WHITE BLOOD COUNT 9.5 x10^3/uL (4.0-11.0)
[2021-03-28] MEDS ORDERED: ONDANSETRON PF 4 MG/2 ML VIAL. IVP ONE (03:00)
[2021-03-28] MEDS ORDERED: IV RINGERS,LACTATED 500ML 1,000 ML IV ONE (03:00)
[2021-03-28 03:09] LABS: ALBUMIN 3.4 g/dL (3.4-5.0); ALBUMIN/GLOBULIN RATIO 0.8 (1.0-1.7); CALCIUM 9.1 mg/dL (8.5-10.1); CREATININE 0.8 mg/dL (0.6-1.0); GFR 79.4; PHOSPHORUS 4.5 mg/dL (2.6-4.7); POTASSIUM 4.5 mmol/L (3.5-5.1); TOTAL BILIRUBIN 0.6 mg/dL (0.2-1.0); TOTAL PROTEIN 7.5 g/dL (6.4-8.2)
[2021-03-28 03:10] LABS: ISTAT BE VENOUS 4 mmol/L (0-3); ISTAT HCO3 VEN 28 mmol/L (24-28); ISTAT PCO2 VEN 47 mmHg (41-51); ISTAT PH VEN 7.39 (7.32-7.42); ISTAT PO2 VEN 95 mmHg (20-40); ISTAT SAT O2 VEN 97 %; ISTAT TCO2 VEN 30 mmol/L (21-32)
[2021-03-28] MEDS ORDERED: CONTRAST GIVEN. MC PRN (03:45)
[2021-03-28] MEDS ORDERED: IOHEXOL 300 MG/ML 100ML VIAL. IV ONE (04:00)
[2021-03-28] MEDS ORDERED: IV RINGERS,LACTATED 500ML 500 ML IV ONE ×2 (04:00→04:15)
[2021-03-28] MEDS ORDERED: INSULIN REGULAR 100 UNIT/ML 3ML VIAL. IV ONE (04:00)
[2021-03-28] MEDS ORDERED: MORPHINE SULFATE 4 MG/ML INJ. ONE ×2 (04:09→04:11)
[2021-03-28] MEDS ORDERED: MORPHINE SULFATE 4 MG/ML INJ. IV ONE (04:15)
--- NOTE | 2021-03-28 04:29 | RAD ---
EXAMINATION: CT abdomen and pelvis with IV contrast. INDICATION:40 years, Female, distention. TECHNIQUE: Axial CT images of the abdomen and pelvis were obtained. Coronal and sagittal reformatted performed. COMPARISON: 03/02/2021. Exposure: One or more of the following individualized dose reduction techniques were utilized for thi s examination: 1. Automated exposure control 2. Adjustment of the mA and/or kV according to patient size 3. Use of iterative reconstruction technique. FINDINGS: LOWER CHEST: Unremarkable ABDOMEN/PELVIS: Enlarged left and caudate lobes with mild surface nodularity. Mild diffuse hepatic steatosis. No susp icious focal hepatic lesion. Cholecystectomy. No biliary ductal dilatation. Borderline splenomegaly m easures up to 13.6 cm in length. Mildly atrophic pancreatic parenchyma. Unchanged 2.7 cm left adrenal myelolipoma. Right adrenal gland is normal. No hydronephrosis or masses. No bowel dilatation or wall thickening. Appendix is normal. Normal caliber abdominal aorta. Mesenteri c arteries and portal vein are patent. No pneumoperitoneum or ascites. Nonspecific nonenlarged retrop eritoneal lymph nodes, likely reactive, unchanged since prior exam. No pelvic lymphadenopathy by size criteria. Unremarkable urinary bladder. Hysterectomy. No suspicious pelvic masses. MUSCULOSKELETAL: No acute osseous process. Unchanged dystrophic calcification in the subcutaneous tissue of the right anterior abdominal wall likely benign. IMPRESSION: 1. No acute abnormality in the abdomen or pelvis. 2. Morphology of the liver may reflect chronic disease on a background of steatosis. Clinical correla tion is advised. 3. Other chronic/incidental findings, as described above. Electronically signed by: Eliazar Key MD (03/28/2021 4:27 AM) [facility]
[2021-03-28 05:27] VITALS: BP 123/70
[2021-03-28] MEDS ORDERED: HYDROcodone/APAP 5/325MG 1 TAB TABLET ONE (05:28)
[2021-03-28] MEDS ORDERED: HYDR-2761 PO (05:28)
[2021-03-28] MEDS ORDERED: HYDROcodone/APAP 7.5/325MG 1 TAB TABLET PO ONE (05:30)
--- NOTE | 2021-03-28 05:31 | EKG ---
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
[2021-03-28] MEDS ORDERED: INSULIN GLARGINE SYRINGE. SQ ONE (06:00)
== END 2021-03-28 05:35 | disposition home or self-care (01) ==
LOC: ER 20:30
DX: E10.65 Type 1 diabetes mellitus with hyperglycemia (principal); J44.9 Chronic obstructive pulmonary disease, unspecified; E10.22 Type 1 diabetes mellitus with diabetic chronic kidney disease; N18.30 Chronic kidney disease, stage 3 unspecified; Z87.891 Personal history of nicotine dependence; Z88.1 Allergy status to other antibiotic agents; Z88.6 Allergy status to analgesic agent; Z91.013 Allergy to seafood
CPT/HCPCS: 36415; 74177; 80053; 81001; 82803; 82962; 83605; 83735; 83880; 84100; 84484; 85025; 87086; 93005; 96361; 96372; 96374; 96375; 99285; J1815; J2270; J2405; J3010; J7120; Q9967

== ENCOUNTER 2021-03-31 17:47 | Emergency (ER) | payer BC ==
[~2021-03-31] VITALS: Ht 165.1 cm; Wt 86.4 kg
[2021-03-31 20:16] VITALS: BP 110/64
--- NOTE | 2021-03-31 21:24 | PHYS DOC ---
Past Medical History Past Medical History: Anxiety, COPD, Depression, Diabetes-Type I, Diabetes-Type II, Other Additional Past Medical Histor: PHILLIPS STAGE III, hydranitis,INOCENCIA,PORTAL HTN (ANA SUTHERLAND APRN) Past Surgical History: Cholecystectomy, Hysterectomy, Tonsillectomy, Other Additional Past Surgical Histo: NASAL SEPTAL, hernia repair (ANA SUTHERLAND APRN) Smoking Status: Never Smoker Alcohol Use: None Drug Use: None (ANA SUTHERLAND APRN) General Adult EDM: Chief Complaint: HYPERGLYCEMIA HPI: HPI: Patient is a 40 year old female who presents to the emergency department complaining of high blood sugar, patient states that she was here 2 days ago and did not get admitted, patient states she wants admitted this time. Patient reports that her blood sugar was over 600 at home. Patient states she still has insulin and has been giving herself sliding scale insulin as directed by her canvas shrinker. Patient reports she is still having suprapubic abdominal pain and continues to be urinating more frequently than normal, denies any blood in her urine or difficulty urinating. Patient reports she is nauseated but has not vomited. Patient states she has normal bowel movements. Patient reports she is worried that she might be in DKA, noting that it was several months ago that she did have DKA. Patient denies chest pain, shortness of breath, chest or nasal congestion, denies recent fever or chills. Patient denies any other physical complaints or physical concerns. (ANA SUTHERLAND APRN) Review of Systems: Review of Systems: 14 body systems of review of systems have been reviewed. See HPI for pertinent positives and negative responses, otherwise all other systems are negative, nonpertinent or noncontributory. Constitutional: Negative except as outlined in HPI above. Skin: Negative except as outlined in HPI above. Eyes: Negative except as outlined in HPI above. HENT: Negative except as outlined in HPI above. Respiratory: Negative except as outlined in HPI above. Cardiovascular: Negative except as outlined in HPI above. GI: Negative except as outlined in HPI above. : Negative except as outlined in HPI above. Musculoskeletal: Negative except as outlined in HPI above. Integument: Negative except as outlined in HPI above. Neurologic: Negative except as outlined in HPI above. Endocrine: Negative except as outlined in HPI above. Lymphatic: Negative except as outlined in HPI above. Psychiatric: Negative except as outlined in HPI above. (ANA SUTHERLAND APRN) Heart Score: C/O Chest Pain: No Risk Factors: Risk Factors: DM, Current or recent (<one month) smoker, HTN, HLP, family history of CAD, obesity. Risk Scores: Score 0 - 3: 2.5% MACE over next 6 weeks - Discharge Home Score 4 - 6: 20.3% MACE over next 6 weeks - Admit for Clinical Observation Score 7 - 10: 72.7% MACE over next 6 weeks - Early Invasive Strategies (ANA SUTHERLAND APRN) Allergies: Allergies: Allergies Coded Allergies Type Severity Reaction Last Updated Verified ketorolac Allergy Severe rash 01/14/21 Yes levofloxacin Allergy Intermediate Rash 01/14/21 Yes shellfish derived Allergy Intermediate RASH/ITCH 01/14/21 Yes vancomycin Allergy Intermediate Rash 01/14/21 Yes (ANA SUTHERLAND APRN) Physical Exam: PE: Constitutional: Well developed, well nourished, no acute distress, non-toxic appearance. 40-year-old female in no apparent distress. HENT: Normocephalic, atraumatic. Eyes: Conjunctiva normal, no discharge. Neck: Normal range of motion, no stridor. Cardiovascular: No cyanosis appreciated, distal cap refill less than 2 seconds. Lungs & Thorax: Patient is in no respiratory distress, no audible adventitious lung sounds appreciated. Abdomen: Nontender, no abnormalities noted. Skin: Warm, dry, no erythema, no rash. Back: No tenderness, no deformities. Extremities: No tenderness, no cyanosis, no clubbing, ROM intact, no edema. Neurologic: Alert and oriented X 3, normal motor function, normal sensory function, no focal deficits noted. Psychologic: Affect normal, judgement normal, mood normal. (ANA SUTHERLAND APRN) Current Patient Data: Labs: Laboratory Tests Test 03/31/21 18:18 POC Urine HCG, Qualitative Hcg negative (Negative) Vital Signs: Vital Signs Date Time Temp Pulse Resp B/P (MAP) Pulse Ox O2 Delivery O2 Flow Rate FiO2 03/31/21 19:53 97.9 93 20 117/76 (87) 97 Room Air 97.9 (ANA SUTHERLAND APRN) EKG: EKG: [] (ANA SUTHERLAND APRN) Radiology/Procedures: Radiology/Procedures: [] (ANA SUTHERLAND APRN) Course & Med Decision Making: Course & Med Decision Making Pertinent Labs and Imaging studies reviewed. (See chart for details) 40-year-old female, vital signs reviewed, presents to the emergency department c oncerning high blood sugar at home. Patient's physical examination is unremarkable, unlikely DKA, there is no Kussmaul breathing or other outward physical signs of diabetic ketoacidosis. Patient does have history of type 2 diabetes, will order labs, urinalysis assay, 1 L normal saline, once serum potassium is reported will consider IV insulin. At 2315 end of shift report given to ED attending physician Dr. Matthews, Dr. Matthews has assumed patient care at this time. (ANA SUTHERLAND APRN) Course & Med Decision Making Notified by nurse that patient wishes to leave against medical advice. Had an extensive discussion with the patient regarding the risks of leaving AMA including but not limited to , permanent disability, and worsening condition. Patient acknowledged the risks and agreed to take full responsibility. Patient was A&Ox4 and had full medical decision making capacity. Patient signed AMA form stating they understood risks and ambulated out of ED with steady gait. (BROOK MATTHEWS DO) Dragon Disclaimer: Amalia Disclaimer: This electronic medical record was generated, in whole or in part, using a voice recognition dictation system. (ANA SUTHERLAND APRN) Departure Departure Impression: Primary Impression: Hyperglycemia Additional Impression: Abdominal pain Disposition: LEFT AGAINST MEDICAL ADVICE Condition: STABLE Referrals: BLANCA VILLATORO PA-C (PCP) ANA SUTHERLAND APRN Mar 31, 2021 21:24 BROOK MATTHEWS DO Apr 01, 2021 00:18
[2021-03-31 22:11] LABS: BILIRUBIN,URINE NEGATIVE (NEG); CLARITY,URINE CLEAR; COLOR,URINE YELLOW; NITRITE,URINE NEGATIVE (NEG); PROTEIN,URINE NEGATIVE (NEG-TRACE); UROBILINOGEN,URINE 0.2 mg/dL (0.2 mg/dL)
[2021-03-31 22:19] LABS: BACTERIA,URINE FEW /HPF (0-FEW); RBC,URINE 20-40 /HPF (0-2)
[2021-03-31] MEDS ORDERED: IV NORMAL SALINE 1000ML BAG 1,000 ML IV ONE (22:30)
[2021-03-31 22:49] LABS: BASE EXCESS ABG -1 mmol/L (-3-3); HCO3 ABG 24 mmol/L (21-28); PCO2 ABG 43 mmHg (35-46); PO2 ABG 73 mmHg (75-108); SAT O2 ABG 94 % (92-99)
[2021-03-31 22:52] LABS: FIO2 ABG 21
[2021-03-31 23:08] LABS: BASO # 0.1 x10^3/uL (0.0-0.2); BASO % 1 % (0-3); EOS # 0.1 x10^3/uL (0.0-0.7); EOS % 1 % (0-3); HEMATOCRIT 39.7 % (36.0-47.0); HEMOGLOBIN 13.6 g/dL (12.0-15.5); LYMPH # 2.5 x10^3/uL (1.0-4.8); LYMPH % 25 % (24-48); MEAN CORPUSCULAR HEMOGLOBIN 30 pg (25-35); MEAN CORPUSCULAR HGB CONC 34 g/dL (31-37); MEAN CORPUSCULAR VOLUME 89 fL (79-100); MONO # 0.6 x10^3/uL (0.0-1.1); MONO % 6 % (0-9); NEUT # 6.5 x10^3/uL (1.8-7.7); NEUT % 67 % (31-73); PLATELET COUNT 205 x10^3/uL (140-400); RED BLOOD COUNT 4.48 x10^6/uL (3.50-5.40); WHITE BLOOD COUNT 9.8 x10^3/uL (4.0-11.0)
[2021-04-01 00:16] LABS: ALBUMIN 3.4 g/dL (3.4-5.0); ALBUMIN/GLOBULIN RATIO 0.9 (1.0-1.7); CALCIUM 9.4 mg/dL (8.5-10.1); CREATININE 0.8 mg/dL (0.6-1.0); GFR 79.4; PHOSPHORUS 4.8 mg/dL (2.6-4.7); POTASSIUM 4.2 mmol/L (3.5-5.1); TOTAL BILIRUBIN 0.5 mg/dL (0.2-1.0); TOTAL PROTEIN 7.1 g/dL (6.4-8.2)
== END 2021-04-01 00:03 | disposition left against medical advice (07) ==
LOC: ER 17:47
DX: E11.65 Type 2 diabetes mellitus with hyperglycemia (principal); R10.30 Lower abdominal pain, unspecified; J44.9 Chronic obstructive pulmonary disease, unspecified; Z88.1 Allergy status to other antibiotic agents; Z88.6 Allergy status to analgesic agent; Z91.013 Allergy to seafood
CPT/HCPCS: 36415; 36600; 80053; 81001; 81025; 82010; 82805; 83735; 84100; 85025; 87086; 96360; 99283; J7030; 87077; 87186

== ENCOUNTER 2021-04-16 00:19 | Emergency (ER) | payer BC | END 2021-04-16 06:15 | disposition left against medical advice (07) | LOC: ER 00:19 | DX: R10.9 Unspecified abdominal pain (principal); Z53.21 Procedure and treatment not carried out due to patient leaving prior to being seen by health care provider | CPT/HCPCS: 81025; 82962 ==

== ENCOUNTER 2021-05-22 00:17 | Emergency (ER) | payer BC ==
[~2021-05-22] VITALS: Ht 165.1 cm; Wt 85.0 kg
--- NOTE | 2021-05-22 01:28 | PHYS DOC ---
Past Medical History Past Medical History: Anxiety, COPD, Depression, Diabetes-Type I, Diabetes-Type II, Other Additional Past Medical Histor: PHILLIPS STAGE III, hydranitis,INOCENCIA,PORTAL HTN Past Surgical History: No Surgical History Additional Past Surgical Histo: NASAL SEPTAL, hernia repair Smoking Status: Never Smoker Alcohol Use: None Drug Use: None General Adult EDM: Chief Complaint: BLOOD SUGAR PROBLEM HPI: HPI: Patient is a 41 year old male with past medical history of diabetes on insulin pump presents for evaluation of hyperglycemia. Patient states prior to arrival she took her blood sugar noted to be 515. Patient also complains of lower back pain with radiation to suprapubic region. Patient states 1 week ago she was diagnosed with a urinary tract infection. Patient states she has taken all her medications as prescribed but discomfort continues. Review of Systems: Review of Systems: Constitutional: Denies fever or chills. [] Eyes: Denies change in visual acuity. [] HENT: Denies nasal congestion or sore throat. [] Respiratory: Denies cough or shortness of breath. [] Cardiovascular: Denies chest pain or edema. [] GI: Denies abdominal pain, nausea, vomiting, bloody stools or diarrhea. [] : Denies dysuria. [] Positive flank pain Musculoskeletal: Denies back pain or joint pain. [] Integument: Denies rash. [] Neurologic: Denies headache, focal weakness or sensory changes. [] Endocrine: Denies polyuria or polydipsia. [] Lymphatic: Denies swollen glands. [] Psychiatric: Denies depression or anxiety. [] Heart Score: C/O Chest Pain: N/A Risk Factors: Risk Factors: DM, Current or recent (<one month) smoker, HTN, HLP, family history of CAD, obesity. Risk Scores: Score 0 - 3: 2.5% MACE over next 6 weeks - Discharge Home Score 4 - 6: 20.3% MACE over next 6 weeks - Admit for Clinical Observation Score 7 - 10: 72.7% MACE over next 6 weeks - Early Invasive Strategies Allergies: Allergies: Allergies Coded Allergies Type Severity Reaction Last Updated Verified ketorolac Allergy Severe rash 01/14/21 Yes levofloxacin Allergy Intermediate Rash 01/14/21 Yes shellfish derived Allergy Intermediate RASH/ITCH 01/14/21 Yes vancomycin Allergy Intermediate Rash 01/14/21 Yes NSAIDS (Non-Steroidal Anti-Inflamma Adverse Reaction Unknown contraindicated due to history of ulcers 05/22/21 Yes Physical Exam: PE: General: alert, no acute distress. Skin: warm, dry and intact, no erythema, no rash. HENT: bilateral external ears normal, oropharynx moist, nose normal. Head:: Normocephalic, atraumatic. Neck: Trachea midline. Eyes: EOMI, Normal conjunctiva, No drainage CARDIOVASCULAR: Regular rate and rhythm RESPIRATORY: No respiratory distress Back: Full range of motion. MUSCULOSKELETAL: Full range of motion of bilateral upper and lower extremities. GASTROINTESTINAL: Abdomen soft without rebound or guarding. NEUROLOGICAL: Alert and noted to person, place and time. No neurological deficits observed Psychiatric: Cooperative. Normal judgment Current Patient Data: Labs: Laboratory Tests Test 05/22/21 00:38 Glucose (Fingerstick) 480 mg/dL (70-99) H Vital Signs: Vital Signs Date Time Temp Pulse Resp B/P (MAP) Pulse Ox O2 Delivery O2 Flow Rate FiO2 05/22/21 01:06 98.3 97 18 122/68 (86) 96 Room Air 98.3 EKG: EKG: [] Radiology/Procedures: Radiology/Procedures: [] Course & Med Decision Making: Course & Med Decision Making Pertinent Labs and Imaging studies reviewed. (See chart for details) [] Patient requesting pain medications. Tylenol was ordered but patient advised nursing she can not take tylenol because of her liver. Plan to treat patient with ultram--- patient drove herself and states she can get a ride. Patients blood sugar in the 400's. IV fluids ordered. Nursing to patients room to give IV fluids. Patient removed ER IV and eloped. Dragon Disclaimer: Dragon Disclaimer: This electronic medical record was generated, in whole or in part, using a voice recognition dictation system. Departure Departure Impression: Primary Impression: Left against medical advice Disposition: LEFT AGAINST MEDICAL ADVICE Referrals: BROOK CARABALLO MD (PCP) DARWIN GODFREY DO May 22, 2021 01:28
[2021-05-22] MEDS ORDERED: ACETAMINOPHEN 325 MG TABLET. PO ONE (01:30)
[2021-05-22 01:42] LABS: BILIRUBIN,URINE NEGATIVE (NEG); CLARITY,URINE CLEAR; COLOR,URINE YELLOW; NITRITE,URINE NEGATIVE (NEG); PH,URINE 5.5 (<5.0-8.0); PROTEIN,URINE NEGATIVE (NEG-TRACE); UROBILINOGEN,URINE 0.2 mg/dL (0.2 mg/dL)
[2021-05-22 01:48] LABS: BACTERIA,URINE 0 /HPF (0-FEW); RBC,URINE TNTC /HPF (0-2); WBC,URINE OCC /HPF (0-4)
[2021-05-22 02:00] VITALS: BP 127/75
[2021-05-22 02:11] LABS: CREATININE 0.9 mg/dL (0.6-1.0); POTASSIUM 3.7 mmol/L (3.5-5.1)
[2021-05-22 02:14] LABS: ALBUMIN 3.4 g/dL (3.4-5.0); TOTAL BILIRUBIN 0.4 mg/dL (0.2-1.0); TOTAL PROTEIN 6.9 g/dL (6.4-8.2)
[2021-05-22] MEDS ORDERED: IV NORMAL SALINE 1000ML BAG 1,000 ML IV ONE (02:30)
== END 2021-05-23 02:27 | disposition left against medical advice (07) ==
LOC: ER 00:17
DX: E11.65 Type 2 diabetes mellitus with hyperglycemia (principal); M54.5 Low back pain; J44.9 Chronic obstructive pulmonary disease, unspecified; Z88.1 Allergy status to other antibiotic agents; Z88.6 Allergy status to analgesic agent; Z91.013 Allergy to seafood; Z88.8 Allergy status to other drugs, medicaments and biological substances
CPT/HCPCS: 36415; 80053; 81001; 82962; 99283

== ENCOUNTER 2021-05-27 02:20 | Emergency (ER) | payer BC ==
[~2021-05-27] VITALS: Ht 165.1 cm; Wt 86.4 kg
[2021-05-27 02:25] VITALS: BP 116/70
--- NOTE | 2021-05-27 03:20 | PHYS DOC ---
Past Medical History Past Medical History: Anxiety, COPD, Depression, Diabetes-Type I, Diabetes-Type II, Other Additional Past Medical Histor: BRITT STAGE III, hydranitis,INOCENCIA,PORTAL HTN Past Surgical History: No Surgical History Additional Past Surgical Histo: NASAL SEPTAL, hernia repair, INSUIN PUMP Smoking Status: Never Smoker Alcohol Use: None Drug Use: None General Adult EDM: Chief Complaint: FLANK PAIN HPI: HPI: Patient is a 41-year-old female presenting for right upper quadrant pain. This is a chronic issue. She is well-known to this facility in addition to several others across the [facility]. She has longstanding history of u ncontrolled type 1 diabetes and in addition to Britt and other rare right upper quadrant pain. States she was last seen for this pain 2 weeks ago and subsequently a few days after that at 2 separate ERs and was prescribed Vina 5 and later Percocet 5 for her pain as she reports she cannot tolerate NSAIDs and/or Tylenol. States she ran out of these medications and is presenting today for pain control. No major changes in health. She does admit recent COVID-19 exposure, reports she is fully vaccinated but did spend time with a friend who was found to be positive although they were asymptomatic during time together 7 days ago. She is requesting Covid swab Review of Systems: Review of Systems: Fourteen body systems of review of systems have been reviewed. See HPI for pertinent positives and negative responses, other mauro all other systems are negative, non-pertinent or non-contributory Heart Score: C/O Chest Pain: No Risk Factors: Risk Factors: DM, Current or recent (<one month) smoker, HTN, HLP, family history of CAD, obesity. Risk Scores: Score 0 - 3: 2.5% MACE over next 6 weeks - Discharge Home Score 4 - 6: 20.3% MACE over next 6 weeks - Admit for Clinical Observation Score 7 - 10: 72.7% MACE over next 6 weeks - Early Invasive Strategies Allergies: Allergies: Allergies Coded Allergies Type Severity Reaction Last Updated Verified ketorolac Allergy Severe rash 01/14/21 Yes levofloxacin Allergy Intermediate Rash 01/14/21 Yes shellfish derived Allergy Intermediate RASH/ITCH 01/14/21 Yes vancomycin Allergy Intermediate Rash 01/14/21 Yes NSAIDS (Non-Steroidal Anti-Inflamma Adverse Reaction Unknown contraindicated due to history of ulcers 05/22/21 Yes Physical Exam: PE: Constitutional: Well developed, well nourished, no acute distress, non-toxic appearance. HENT: Normocephalic, atraumatic, bilateral external ears normal, oropharynx moist, no oral exudates, nose normal. Eyes: PERRLA, EOMI, conjunctiva normal, no discharge. Neck: Normal range of motion, no tenderness, supple, no stridor. Cardiovascular: Heart rate regular, sinus rhythm, no murmurs rubs or gallops Lungs & Thorax: Bilateral breath sounds clear to auscultation Abdomen: Bowel sounds normal, soft, no tenderness, no masses, no pulsatile masses. Nonsurgical abdomen, no peritoneal signs Skin: Warm, dry, no erythema, no rash. Back: No tenderness, no CVA tenderness. Extremities: No tenderness, no cyanosis, no clubbing, ROM intact, no edema. Neurologic: Alert and oriented X 3, grossly normal motor & sensory function, no focal deficits noted. Psychologic: Affect normal, judgement normal, mood normal. Current Patient Data: Vital Signs: Vital Signs Date Time Temp Pulse Resp B/P (MAP) Pulse Ox O2 Delivery O2 Flow Rate FiO2 05/27/21 02:25 97.7 89 18 116/70 (85) 95 Room Air 97.7 EKG: EKG: [] Radiology/Procedures: Radiology/Procedures: [] Course & Med Decision Making: Course & Med Decision Making ABCs unremarkable History and physical exam obtained. Prior to following through with proposed treatment plan, patient eloped from the ER Amalia Disclaimer: Amalia Disclaimer: This electronic medical record was generated, in whole or in part, using a voice recognition dictation system. Departure Departure Impression: Primary Impression: Chronic abdominal pain Additional Impression: Person under investigation for COVID-19 Disposition: 07 LEFT AWOL/ELOPED Condition: STABLE Referrals: BROOK CARABALLO MD (PCP) Additional Instructions: You have been evaluated in the Emergency Department today for abdominal pain and recent exposure to an individual positive with COVID-19. You need to follow-up with your GI specialist given your chronic abdominal conditions. Your physical exam was reassuring. We tested you for COVID-19 but this test does not come back for 1 to 2 days. In the meantime you need to quarantine yourself at home away from all other individuals, especially those who are elderly or have any other chronic health issues or an immunocompromised status. It is imperative that you contact your primary care and GI physicians first thing this morning to review your uncontrolled pain and discuss need for further outpatient work-up as deemed necessary Return to the Emergency Department if you experience worsening pain, persistent fevers greater than 100.4, recurrent vomiting, blood in vomit, blood in stool, dark tarry stool, chest pain, difficulty breathing, or any other concerning symptoms. LEANA TRENT DO May 27, 2021 03:20
== END 2021-05-27 03:30 | disposition left against medical advice (07) ==
LOC: ER 02:20
DX: R10.11 Right upper quadrant pain (principal); J44.9 Chronic obstructive pulmonary disease, unspecified; E11.9 Type 2 diabetes mellitus without complications; Z88.1 Allergy status to other antibiotic agents; Z88.6 Allergy status to analgesic agent; Z91.013 Allergy to seafood
CPT/HCPCS: 99283

== ENCOUNTER 2021-07-26 16:55 | Emergency (ER) | payer BC ==
[~2021-07-26] VITALS: Ht 162.6 cm; Wt 86.0 kg
--- NOTE | 2021-07-26 18:09 | PHYS DOC ---
Past Medical History Past Medical History: Anxiety, COPD, Depression, Diabetes-Type I, Diabetes-Type II, Other Additional Past Medical Histor: PHILLIPS STAGE III, hydranitis,INOCENCIA,PORTAL HTN, hypobetaliproteinemia Past Surgical History: Hysterectomy, Tonsillectomy, Other Additional Past Surgical Histo: NASAL SEPTAL, hernia repair, INSUIN PUMP Smoking Status: Former Smoker Alcohol Use: None Drug Use: None General Adult EDM: Chief Complaint: HYPERGLYCEMIA HPI: HPI: Patient is a 41 year old female who presents with 2 to 3 days of left upper quadrant and epigastric abdominal pain, nausea vomiting and a couple episodes of diarrhea. Denies hematemesis, melena, hematochezia. She denies dysuria. She does report polyuria and urinary frequency. She also reports higher than usual blood sugars. She normally runs in the high 200s, today she has been in the 400s and 500s. Per her description it sounds like she has chronically very poorly controlled diabetes. She has an insulin pump, which she reports is working. She reports generalized malaise, body ache, fatigue, occasional dry cough, mild dyspnea, denies chest pain. Denies hemoptysis or sputum production. She reports sore throat and mild headache. She was recently at a large gathering of people within the last week. She is unsure who was or was not vaccinated against Covid or influenza. She has not been vaccinated against influenza but has been fully vaccinated against Covid. She denies lower extremity pain or swelling. She denies recent surgery or hospitalization. The group gathering to which she referred attending in the last week was in [place], so no prolonged immobilization or long travel history reported. Review of Systems: Review of Systems: Constitutional: Denies fever. Reports generalized malaise and chills and body aches. Eyes: Denies change in visual acuity. [] HENT: Reports mild sore throat and mild nasal congestion. Respiratory: Reports mild dyspnea and mild dry cough. Denies wheezing or hemoptysis. Cardiovascular: Denies chest pain or edema. [] GI: Ports left upper quadrant and epigastric abdominal pain, nausea, vomiting, diarrhea. Denies melena, hematochezia or hematemesis. : Denies dysuria. Ports urinary frequency. Musculoskeletal: Denies back pain or joint pain. She does report some mild diffuse myalgias. Integument: Denies rash. [] Neurologic: Reports mild headache. Denies numbness, tingling, focal weakness, syncope. Endocrine: Admits to hyperglycemia, polyuria and polydipsia. [] Lymphatic: Denies swollen glands. [] Psychiatric: Denies depression or anxiety. [] Heart Score: C/O Chest Pain: No Risk Factors: Risk Factors: DM, Current or recent (<one month) smoker, HTN, HLP, family history of CAD, obesity. Risk Scores: Score 0 - 3: 2.5% MACE over next 6 weeks - Discharge Home Score 4 - 6: 20.3% MACE over next 6 weeks - Admit for Clinical Observation Score 7 - 10: 72.7% MACE over next 6 weeks - Early Invasive Strategies Allergies: Allergies: Allergies Coded Allergies Type Severity Reaction Last Updated Verified ketorolac Allergy Severe rash 01/14/21 Yes levofloxacin Allergy Intermediate Rash 01/14/21 Yes shellfish derived Allergy Intermediate RASH/ITCH 01/14/21 Yes vancomycin Allergy Intermediate Rash 01/14/21 Yes NSAIDS (Non-Steroidal Anti-Inflamma Adverse Reaction Unknown contraindicated due to history of ulcers 05/22/21 Yes Physical Exam: PE: Constitutional: Well developed, well nourished, no acute distress, non-toxic appearance. Appears older than stated age. Chronically ill-appearing. HENT: Normocephalic, atraumatic, oropharynx is patent, uvula midline, oropharynx is clear of exudate. There is mild oropharyngeal erythema. No oropharyngeal ulcers, edema or swelling. Her mucous membranes are dry. Eyes: PERRL, EOMI, conjunctiva normal, no discharge. Sclera are anicteric. Neck: Normal range of motion, no tenderness, supple, no stridor. Achy midline. No JVD. Cardiovascular: Tachycardic, regular, +2 dorsalis pedis and +2 radial pulses bilaterally. Heart rate is in the low 100s. Lungs & Thorax: Bilateral breath sounds clear to auscultation, no rales, rhonchi or wheezes. Abdomen: Abdomen is obese, soft, nondistended, normal bowel sounds. Tenderness to the left upper quadrant and epigastric area, with voluntary guarding. No rebound tenderness. No lower abdominal tenderness. No CVA tenderness. No flank or abdominal ecchymoses. No palpable masses, no palpable pulsatile mass or audible bruit noted. Skin: Warm, dry, no erythema, no rash. [] Back: No tenderness, no CVA tenderness. [] Extremities: No tenderness, no cyanosis, no clubbing, ROM intact, no edema. No calf tenderness. Neurologic: Alert and oriented X 3, normal motor function, normal sensory function, no focal deficits noted. [] Psychologic: Affect normal, judgement normal, mood normal. [] Current Patient Data: Labs: Laboratory Tests Test 07/26/21 17:47 POC Urine HCG, Qualitative Hcg negative (Negative) Vital Signs: Vital Signs Date Time Temp Pulse Resp B/P (MAP) Pulse Ox O2 Delivery O2 Flow Rate FiO2 07/26/21 17:58 98.3 109 16 112/70 (84) 98 Room Air 98.3 EKG: EKG: EKG reviewed at 1808 Rhythm is sinus tachycardia Rate is 104 bpm [place] is left No STEMI Radiology/Procedures: Radiology/Procedures: IMAGING REPORT Signed PATIENT: RON REYNA ACCOUNT: [id number] : 1980 LOCATION: ER AGE: 41 SEX: F EXAM STATUS: REG ER ORD. PHYSICIAN: PETER VELEZ DO REASON: cough/WITH RN AT 1845 PROCEDURE: PORTABLE CHEST 1V Exam: Chest one view INDICATION: Cough TECHNIQUE: Frontal view of the chest Comparisons: 12/23/2020 FINDINGS: The cardiomediastinal silhouette and pulmonary vessels are within normal limits. The lung and pleural spaces are clear. IMPRESSION: No acute cardiopulmonary process. Electronically signed by: Abiel Hernandez MD (07/26/2021 7:37 PM) [facility] DICTATED and SIGNED BY: ABIEL HERNANDEZ MD DATE: 07/26/21 [id number] IMAGING REPORT Signed PATIENT: RON REYNA ACCOUNT: [id number] : 1980 LOCATION: ER AGE: 41 SEX: F EXAM STATUS: REG ER ORD. PHYSICIAN: PETER VELEZ DO REASON: abdominal pain, n/v, OMNI 300 75 ML IV PROCEDURE: CT ABD PELV W/ IV CONTRST ONLY EXAMINATION: CT ABDOMEN+PELVIS W CLINICAL HISTORY: Abdominal pain, n/v TECHNIQUE: CT of the abdomen and pelvis was performed using standard technique, scanning from just above the dome of the diaphragm to the symphysis pubis following administration of intravenous contrast. CT Dose Reduction Employed: One or more of the following individualized dose reduction techniques were utilized for this examination: 1. Automated exposure control 2. Adjustment of the mA and/or kV according to patient size 3. Use of iterative reconstruction technique. COMPARISON: 03/28/2021 FINDINGS: Mild dependent bibasilar subsegmental atelectasis. Diffuse hypoattenuation of the hepatic parenchyma, compatible with steatosis. Mild splenomegaly. Left adrenal myelolipoma, similar to prior study. Cholecystectomy. Pancreas, right adrenal gland, and kidneys unremarkable. Mildly filled urinary bladder. Hysterectomy. No bowel dilation or definite wall thickening. Appendix within normal limits. Stomach distended with fluid and particulate matter. No abdominal aortic or iliac artery aneurysm. Subcutaneous dystrophic calcification overlying the anterior abdominal wall along the right lower quadrant, similar to prior study. No evidence of acute osseous abnormality. IMPRESSION: No evidence of acute abdominopelvic abnormality. Nonacute findings as described, similar to prior study. Electronically signed by: Devin Zazueta DO (07/26/2021 8:12 PM) [facility] DICTATED and SIGNED BY: DEVIN ZAZUETA DO DATE: 07/26/[id number] 0 Course & Med Decision Making: Course & Med Decision Making Pertinent Labs and Imaging studies reviewed. (See chart for details) The patient is given IV fluids, IV morphine, IV Zofran. She is given p.o. Ultram. No further nausea vomiting reported here. Glucose levels are trending downward and are now in the 300s. The patient has a benign, nonsurgical abdominal exam. She is demonstrating no evidence of current nausea, no vomiting. No evidence of acute life-threatening process noted on imaging studies. No evidence of HHS or DKA. No indication for further invasive exams, imaging or admission at this time, based on current clinical presentation. She has a GI physician, and I recommend she follow-up with them, she may require further work-up, such as endoscopy and/or gastric emptying studies to evaluate for gastroparesis. She is already taking 40 mg of Protonix daily so I recommend she continue this. I recommend eating a bland diet, I recommend adhering to a strict ADA diet. She is comfortable with the plan for discharge home. Return precautions are given. She already has a prescription for Zofran at home. She reports that she is almost out of Phenergan, and this is helped her nausea in the past, so I will prescribe a small amount of this for her for discharge. Amalia Disclaimer: Amalia Disclaimer: This electronic medical record was generated, in whole or in part, using a voice recognition dictation system. Departure Departure Impression: Primary Impression: Epigastric abdominal pain Additional Impressions: Nausea & vomiting Hyperglycemia due to diabetes mellitus Disposition: HOME / SELF CARE / HOMELESS Condition: STABLE Referrals: BROOK CARABALLO MD (PCP) Patient Instructions: Abdominal Pain (Nonspecific), Hyperglycemia, Nausea and Vomiting Additional Instructions: Take the medicines as needed/as directed. Stay well-hydrated, drink plenty of fluids. Eat a bland diet. Make sure to monitor your sugar and carbohydrate intake, adhere to an ADA diet. Please contact your primary care physician on Thursday and arrange for close follow-up for further medical management of your uncontrolled diabetes. I would also recommend you contact your GI physician to discuss your epigastric pain and nausea and vomiting symptoms further. Return for any acute changes in symptoms, such as vomiting blood, temperature 100.4 or higher, uncontrolled vomiting, dehydration, or any other concerns. Scripts Promethazine Hcl (PROMETHAZINE HCL) 25 Mg Tablet 1 TAB PO PRN Q6HRS for vomiting, #20 TAB Prov: PETER VELEZ DO 07/26/21 Tramadol Hcl (ULTRAM) 50 Mg Tablet 1 TAB PO PRN Q6HRS PRN for pain MDD 4 Tablet(s), #12 TAB 0 Refills Prov: PETER VELEZ DO 07/26/21 PETER VELEZ DO Jul 26, 2021 18:09
[2021-07-26] MEDS ORDERED: ONDANSETRON PF 4 MG/2 ML VIAL. IVP ONE (18:30)
[2021-07-26] MEDS ORDERED: MORPHINE SULFATE 4 MG/ML INJ. IVP ONE ×2 (18:30→20:00)
[2021-07-26] MEDS ORDERED: IV NORMAL SALINE 1000ML BAG 1,000 ML IV ONE (18:30)
[2021-07-26 18:43] LABS: BASO % 0 % (0-3); EOS # 0.1 x10^3/uL (0.0-0.7); EOS % 1 % (0-3); HEMATOCRIT 40.5 % (36.0-47.0); HEMOGLOBIN 14.2 g/dL (12.0-15.5); LYMPH # 2.3 x10^3/uL (1.0-4.8); LYMPH % 25 % (24-48); MEAN CORPUSCULAR HEMOGLOBIN 30 pg (25-35); MEAN CORPUSCULAR HGB CONC 35 g/dL (31-37); MEAN CORPUSCULAR VOLUME 87 fL (79-100); MONO # 0.5 x10^3/uL (0.0-1.1); MONO % 5 % (0-9); NEUT # 6.2 x10^3/uL (1.8-7.7); NEUT % 68 % (31-73); PLATELET COUNT 171 x10^3/uL (140-400); RED BLOOD COUNT 4.67 x10^6/uL (3.50-5.40); RED CELL DISTRIBUTION WIDTH 16.3 % (11.5-14.5); WHITE BLOOD COUNT 9.1 x10^3/uL (4.0-11.0)
[2021-07-26 18:44] LABS: CALCIUM 8.9 mg/dL (8.5-10.1); CREATININE 0.9 mg/dL (0.6-1.0); POTASSIUM 4.4 mmol/L (3.5-5.1)
[2021-07-26 18:56] LABS: ALBUMIN 3.4 g/dL (3.4-5.0); ALBUMIN/GLOBULIN RATIO 0.8 (1.0-1.7); MAGNESIUM 2.4 mg/dL (1.8-2.4); PHOSPHORUS 3.3 mg/dL (2.6-4.7); TOTAL BILIRUBIN 0.4 mg/dL (0.2-1.0); TOTAL PROTEIN 7.5 g/dL (6.4-8.2)
[2021-07-26 19:01] LABS: BILIRUBIN,URINE NEGATIVE (NEG); CLARITY,URINE CLEAR; COLOR,URINE YELLOW; NITRITE,URINE NEGATIVE (NEG); PH,URINE 5.5 (<5.0-8.0); PROTEIN,URINE NEGATIVE (NEG-TRACE); UROBILINOGEN,URINE 0.2 mg/dL (0.2 mg/dL)
[2021-07-26 19:17] LABS: BACTERIA,URINE 0 /HPF (0-FEW); RBC,URINE 0 /HPF (0-2); WBC,URINE OCC /HPF (0-4)
[2021-07-26 19:22] LABS: INFLUENZA A PATIENT NEGATIVE (NEGATIVE); INFLUENZA B PATIENT NEGATIVE (NEGATIVE)
[2021-07-26] MEDS ORDERED: CONTRAST GIVEN. MC PRN (19:30)
--- NOTE | 2021-07-26 19:39 | RAD ---
Exam: Chest one view INDICATION: Cough TECHNIQUE: Frontal view of the chest Comparisons: 12/23/2020 FINDINGS: The cardiomediastinal silhouette and pulmonary vessels are within normal limits. The lung and pleural spaces are clear. IMPRESSION: No acute cardiopulmonary process. Electronically signed by: Abiel Parra MD (07/26/2021 7:37 PM) [facility]
[2021-07-26] MEDS ORDERED: IOHEXOL 300 MG/ML 100ML VIAL. IV ONE (20:00)
--- NOTE | 2021-07-26 20:15 | RAD ---
EXAMINATION: CT ABDOMEN+PELVIS W CLINICAL HISTORY: Abdominal pain, n/v TECHNIQUE: CT of the abdomen and pelvis was performed using standard technique, scanning from just ab ove the dome of the diaphragm to the symphysis pubis following administration of intravenous contrast . CT Dose Reduction Employed: One or more of the following individualized dose reduction techniques wer e utilized for this examination: 1. Automated exposure control 2. Adjustment of the mA and/or kV ac cording to patient size 3. Use of iterative reconstruction technique. COMPARISON: 03/28/2021 FINDINGS: Mild dependent bibasilar subsegmental atelectasis. Diffuse hypoattenuation of the hepatic parenchyma, compatible with steatosis. Mild splenomegaly. Left adrenal myelolipoma, similar to prior study. Cholecystectomy. Pancreas, right adrenal gland, and kid neys unremarkable. Mildly filled urinary bladder. Hysterectomy. No bowel dilation or definite wall thickening. Appendix within normal limits. Stomach distended with fluid and particulate matter. No abdominal aortic or iliac artery aneurysm. Subcutaneous dystrophic calcification overlying the anterior abdominal wall along the right lower jocelyn drant, similar to prior study. No evidence of acute osseous abnormality. IMPRESSION: No evidence of acute abdominopelvic abnormality. Nonacute findings as described, similar to prior study. Electronically signed by: Devin Addison DO (07/26/2021 8:12 PM) [facility]
[2021-07-26 21:26] VITALS: BP 113/69
[2021-07-26] MEDS ORDERED: PROM25TA10 PO (21:28)
[2021-07-26] MEDS ORDERED: TRAM-48 PO (21:28)
[2021-07-26] MEDS ORDERED: traMADol 50 MG TABLET PO ONE (21:30)
--- NOTE | 2021-07-29 10:58 | NUR ---
IP: Attempted to contact pt concerning covid results. No answer, left a voicemail to return the call. Addendum: 07/29/21 at 1107 by RAQUEL MERCADO RN Pt returned my call. Informed her of the negative covid test. Pt verbalized understanding.
== END 2021-07-26 21:53 | disposition home or self-care (01) ==
LOC: ER 16:55
DX: R10.13 Epigastric pain (principal); Z20.822 Contact with and (suspected) exposure to COVID-19; R11.2 Nausea with vomiting, unspecified; E11.65 Type 2 diabetes mellitus with hyperglycemia; J44.9 Chronic obstructive pulmonary disease, unspecified; Z87.891 Personal history of nicotine dependence; Z90.710 Acquired absence of both cervix and uterus; Z98.890 Other specified postprocedural states; Z88.1 Allergy status to other antibiotic agents; Z91.013 Allergy to seafood; Z88.6 Allergy status to analgesic agent
CPT/HCPCS: 36415; 71045; 74177; 80053; 81001; 81025; 82962; 83690; 83735; 84100; 85025; 87070; 87426; 87804; 87880; 96361; 96374; 96375; 96376; 99285; J2270; J2405; J7030; Q9967; U0003; U0005

== ENCOUNTER 2021-10-13 02:27 | Emergency (ER) | payer BC ==
[~2021-10-13] VITALS: Ht 165.1 cm; Wt 86.3 kg
[~2021-10-13 02:27] MED LIST changes: +DICL20GE TP; +PROM25TA10 PO; +VORT20TA PO
--- NOTE | 2021-10-13 03:03 | PHYS DOC ---
Past Medical History Past Medical History: Anxiety, COPD, Depression, Diabetes-Type I, Diabetes-Type II, Other Additional Past Medical Histor: PHILLIPS STAGE III, hydranitis,INOCENCIA,PORTAL HTN, hypobetaliproteinemia Past Surgical History: Other Additional Past Surgical Histo: NASAL SEPTAL, hernia repair, INSUIN PUMP Smoking Status: Former Smoker Alcohol Use: None Drug Use: None General Adult EDM: Chief Complaint: ABDOMINAL PAIN HPI: HPI: Patient is a 41 year old female here with multiple complaints. She reports left lower quadrant abdominal pain, mild rectal bleeding, mostly notices only with wiping after bowel movements. She is actually been experiencing similar rectal bleeding for several months. She has been seen twice at [facility] ER within the last week. She has undergone laboratory evaluation as well as CT abdomen pelvis, twice within the last week, the last of which occurred le ss than 48 hours ago. Earlier this week she was also seen by outpatient GI services at [facility], and she underwent upper and lower endoscopy. She was found to have 3 polyps, which were removed. She has previously seen Dr. Mohan here at this hospital for several recurrent GI issues. She also has chronic gastritis. She is taking a PPI as she is directed. She was told to come back in 1 year for another colonoscopy. No further treatment was recommended at that time. Her last CT scan at [facility] indicated possible pancolitis, though she was not discharged with any antibiotics. She denies any heavier than usual bleeding, and again only notices some bright red blood with wiping. She denies any vaginal bleeding. Denies bleeding from other sources or sites. She reports nausea without vomiting. She does report that she has some thinner stools, though the stools are formed and brown. She denies anorexia. She denies fevers or chills. She denies urinary symptoms. Of note, I was in the patient's room for a significant amount of time on the initial discussion, and she had only revealed one of her ER visits at [facility] to me, the one that occurred approximately 1 week ago. She called me back into the room a few minutes after I had discussed my plan of care, indicating to me that she wanted to show me a second CT scan, which had been from less than 40 hours ago. She reports to me that she "forgot" about all of her visits to [facility] until just now. Review of Systems: Review of Systems: Constitutional: Denies fever or chills. [] Eyes: Denies change in visual acuity. [] HENT: Denies nasal congestion or sore throat. [] Respiratory: Denies cough or shortness of breath. [] Cardiovascular: Denies chest pain or edema. [] GI: Denies abdominal pain, nausea, vomiting, bloody stools or diarrhea. [] : Denies dysuria. [] Musculoskeletal: Denies back pain or joint pain. [] Integument: Denies rash. [] Neurologic: Denies headache, focal weakness or sensory changes. [] Endocrine: Denies polyuria or polydipsia. [] Lymphatic: Denies swollen glands. [] Psychiatric: Denies depression or anxiety. [] Heart Score: C/O Chest Pain: No Risk Factors: Risk Factors: DM, Current or recent (<one month) smoker, HTN, HLP, family history of CAD, obesity. Risk Scores: Score 0 - 3: 2.5% MACE over next 6 weeks - Discharge Home Score 4 - 6: 20.3% MACE over next 6 weeks - Admit for Clinical Observation Score 7 - 10: 72.7% MACE over next 6 weeks - Early Invasive Strategies Allergies: Allergies: Allergies Coded Allergies Type Severity Reaction Last Updated Verified ketorolac Allergy Severe rash 09/25/21 Yes levofloxacin Allergy Intermediate Rash 09/25/21 Yes shellfish derived Allergy Intermediate RASH/ITCH 09/25/21 Yes vancomycin Allergy Intermediate Rash 09/25/21 Yes NSAIDS (Non-Steroidal Anti-Inflamma Adverse Reaction Severe contraindicated due to history of ulcers 09/26/21 Yes Physical Exam: PE: Constitutional: Well developed, well nourished, no acute distress, non-toxic appearance. [] HENT: Normocephalic, atraumatic, mucous membranes are moist Eyes: Conjunctiva normal, no discharge. Sclera are anicteric Neck: Normal range of motion, no tenderness, supple, no stridor. [] Cardiovascular:Heart rate regular rhythm, was 2 radial and +2 posterior tibial pulses bilateral Lungs & Thorax: Bilateral breath sounds clear to auscultation [] Abdomen: Abdomen is obese, soft, nondistended, normal bowel sounds, no palpable pulsatile mass, I am unable to elicit any tenderness on abdominal exam. No CVA tenderness. No flank or abdominal ecchymoses are noted. Skin: Warm, dry, no erythema, no rash. No jaundice. No pallor. Back: No tenderness, no CVA tenderness. [] Extremities: No tenderness, no cyanosis, no clubbing, ROM intact, no edema. No calf tenderness. Neurologic: Alert and oriented X 3, normal motor function, normal sensory function, no focal deficits noted. [] Psychologic: Affect is somewhat bizarre, anxious. She is cooperative. EKG: EKG: [] Radiology/Procedures: Radiology/Procedures: [] Course & Med Decision Making: Course & Med Decision Making Pertinent Labs and Imaging studies reviewed. (See chart for details) The patient is given IV fluids, IV morphine, IV Zofran. She is resting comfortably, manifested no evidence of distress. She has a benign, nonsurgical exam. Hemoglobin is stable. The patient allowed me to review her CT imaging studies from [facility], the last of which was less than 48 hours ago and the first 1 was 1 week ago. The patient has seen GI earlier this week. I told her that she should choose 1 specific GI service/physician with whom she should follow routinely, this would be up to her to decide this, but I do not feel that it is appropriate to go back and forth between 2 different GI physicians, who both provide the same service. I told her to contact them for follow-up of this recurring issue. There is no indication for repeat emergent imaging at this time based on current clinical presentation. I told her that her rectal bleeding may very well be from recent polyp removal. She also reports having had a previous history of external and internal hemorrhoids with hemorrhoidectomy. I will defer any further work-up in this regard to her GI physicians and primary care physician. She has pain medicine and antiemetics at home. Return precautions are given. Dragon Disclaimer: Draganshul Disclaimer: This electronic medical record was generated, in whole or in part, using a voice recognition dictation system. Departure Departure Impression: Primary Impression: Lower abdominal pain Additional Impression: History of rectal bleeding Disposition: HOME / SELF CARE / HOMELESS Condition: STABLE Referrals: BROOK CARABALLO MD (PCP) Patient Instructions: Abdominal Pain (Nonspecific), Rectal Bleeding, [id number] Additional Instructions: Return to the ER for temperature 100.4 or higher, more severe pain, uncontrolled vomiting, dehydration, heavier or more severe rectal bleeding or for any other concerns. Please stay well-hydrated, drink plenty of fluids. You may take your regularly prescribed medications as per your primary care doctor and GI doctor. Please follow-up for repeat colonoscopy in 1 year, per your GI doctors recommendations. Please contact your primary care doctor for follow-up for this as well PETER VELEZ DO Oct 13, 2021 03:03
[2021-10-13 03:51] LABS: BASO # 0.1 x10^3/uL (0.0-0.2); BASO % 1 % (0-3); EOS # 0.1 x10^3/uL (0.0-0.7); EOS % 1 % (0-3); HEMATOCRIT 38.2 % (36.0-47.0); LYMPH # 2.1 x10^3/uL (1.0-4.8); LYMPH % 25 % (24-48); MEAN CORPUSCULAR HEMOGLOBIN 30 pg (25-35); MEAN CORPUSCULAR HGB CONC 34 g/dL (31-37); MEAN CORPUSCULAR VOLUME 87 fL (79-100); MONO # 0.6 x10^3/uL (0.0-1.1); MONO % 7 % (0-9); NEUT # 5.5 x10^3/uL (1.8-7.7); NEUT % 66 % (31-73); PLATELET COUNT 198 x10^3/uL (140-400); RED BLOOD COUNT 4.38 x10^6/uL (3.50-5.40); RED CELL DISTRIBUTION WIDTH 17.1 % (11.5-14.5); WHITE BLOOD COUNT 8.4 x10^3/uL (4.0-11.0)
[2021-10-13 03:53] LABS: BILIRUBIN,URINE NEGATIVE (NEG); CLARITY,URINE CLEAR; COLOR,URINE YELLOW; NITRITE,URINE NEGATIVE (NEG); PROTEIN,URINE NEGATIVE (NEG-TRACE)
[2021-10-13 03:57] LABS: BACTERIA,URINE 0 /HPF (0-FEW); RBC,URINE 0 /HPF (0-2)
[2021-10-13 03:58] LABS: YEAST,URINE PRESENT /HPF
[2021-10-13] MEDS ORDERED: ONDANSETRON PF 4 MG/2 ML VIAL. IVP ONE (04:00)
[2021-10-13] MEDS ORDERED: IV NORMAL SALINE 1000ML BAG 1,000 ML IV ONE (04:00)
[2021-10-13] MEDS ORDERED: MORPHINE SULFATE 4 MG/ML INJ. IVP ONE (04:00)
[2021-10-13 04:04] LABS: BARBITURATES NEG (NEG); BENZODIAZEPINES POS (NEG); CANNABINOIDS NEG (NEG); COCAINE NEG (NEG); METHADONE NEG (NEG); OPIATES NEG (NEG); PHENCYCLIDINE NEG (NEG)
[2021-10-13 04:06] LABS: PROTHROMBIN TIME PATIENT 13.6 SEC (11.7-14.0)
[2021-10-13 04:07] LABS: AMPHETAMINE/METHAMPHETAMINE NEG (NEG)
[2021-10-13 05:57] LABS: CALCIUM 8.8 mg/dL (8.5-10.1); CREATININE 0.8 mg/dL (0.6-1.0); POTASSIUM 3.8 mmol/L (3.5-5.1)
[2021-10-13 06:03] LABS: ALBUMIN 3.6 g/dL (3.4-5.0); ALBUMIN/GLOBULIN RATIO 0.9 (1.0-1.7); TOTAL BILIRUBIN 0.3 mg/dL (0.2-1.0); TOTAL PROTEIN 7.4 g/dL (6.4-8.2)
[2021-10-13 07:13] VITALS: BP 126/75
== END 2021-10-13 07:19 | disposition home or self-care (01) ==
LOC: ER 03:40
DX: R10.32 Left lower quadrant pain (principal); J44.9 Chronic obstructive pulmonary disease, unspecified; Z87.891 Personal history of nicotine dependence; E11.9 Type 2 diabetes mellitus without complications; Z88.1 Allergy status to other antibiotic agents; Z88.6 Allergy status to analgesic agent; Z91.013 Allergy to seafood; Z88.8 Allergy status to other drugs, medicaments and biological substances
CPT/HCPCS: 36415; 80053; 80307; 81001; 83605; 83690; 85025; 85610; 85730; 96361; 96374; 96375; 99285; J2270; J2405; J7030

== ENCOUNTER 2021-11-02 15:19 | Emergency (ER) | payer BC ==
[~2021-11-02] VITALS: Ht 175.3 cm; Wt 86.0 kg
[~2021-11-02 15:19] MED LIST changes: -EMPA25TA PO; +EMPA25TA3 PO
[2021-11-02 16:25] VITALS: BP 139/81
[2021-11-02] MEDS ORDERED: IV NORMAL SALINE 1000ML BAG 1,000 ML IV ONE (16:30)
[2021-11-02] MEDS ORDERED: ONDANSETRON PF 4 MG/2 ML VIAL. IVP ONE (16:30)
[2021-11-02] MEDS ORDERED: MORPHINE SULFATE 4 MG/ML INJ. IVP ONE (16:30)
[2021-11-02 16:48] LABS: BARBITURATES NEG (NEG); BENZODIAZEPINES POS (NEG); CANNABINOIDS NEG (NEG); COCAINE NEG (NEG); METHADONE NEG (NEG); OPIATES POS (NEG); PHENCYCLIDINE NEG (NEG)
[2021-11-02 16:53] LABS: BILIRUBIN,URINE NEGATIVE (NEG); CLARITY,URINE CLEAR; COLOR,URINE YELLOW
[2021-11-02 16:54] LABS: BACTERIA,URINE 0 /HPF (0-FEW); NITRITE,URINE NEGATIVE (NEG); PROTEIN,URINE NEGATIVE (NEG-TRACE); RBC,URINE OCC /HPF (0-2); UROBILINOGEN,URINE 0.2 mg/dL (0.2 mg/dL); WBC,URINE OCC /HPF (0-4)
[2021-11-02 16:58] LABS: AMPHETAMINE/METHAMPHETAMINE NEG (NEG)
[2021-11-02] MEDS ORDERED: CONTRAST GIVEN. MC PRN (17:00)
[2021-11-02] MEDS ORDERED: IOHEXOL 300 MG/ML 100ML VIAL. IV ONE (17:00)
--- NOTE | 2021-11-02 17:08 | PHYS DOC ---
Past Medical History Past Medical History: Anxiety, COPD, Depression, Diabetes-Type I, Diabetes-Type II, Other Additional Past Medical Histor: PHILLIPS STAGE III, hydranitis,INOCENCIA,PORTAL HTN, hypobetaliproteinemia Past Surgical History: Other Additional Past Surgical Histo: NASAL SEPTAL, hernia repair, INSUIN PUMP Smoking Status: Never Smoker Alcohol Use: None Drug Use: None General Adult EDM: Chief Complaint: ABDOMINAL PAIN HPI: HPI: Patient is a 41 year old female with history of COPD, diabetes type 2, depression, anxiety, who presents the ED today complaining of 10 out of 10 lower abdominal pain, constipation, symptoms have been going on for 1 week. Patient states she was diagnosed with colitis 1 week ago at [facility] in [place]. She states she was put on Augmentin. She states her symptoms have gotten worse. Denies any nausea, vomiting, diarrhea. She states her bowel movement was today and was hard Review of Systems: Review of Systems: Constitutional: Denies fever or chills. [] Eyes: Denies change in visual acuity. [] HENT: Denies nasal congestion or sore throat. [] Respiratory: Denies cough or shortness of breath. [] Cardiovascular: Denies chest pain or edema. [] GI: Reports lower abdominal pain with constipation, denies nausea, vomiting, bloody stools or diarrhea. [] : Denies dysuria. [] Musculoskeletal: Denies back pain or joint pain. [] Integument: Denies rash. [] Neurologic: Denies headache, focal weakness or sensory changes. [] Psychiatric: Denies depression or anxiety. [] Heart Score: C/O Chest Pain: N/A Risk Factors: Risk Factors: DM, Current or recent (<one month) smoker, HTN, HLP, family history of CAD, obesity. Risk Scores: Score 0 - 3: 2.5% MACE over next 6 weeks - Discharge Home Score 4 - 6: 20.3% MACE over next 6 weeks - Admit for Clinical Observation Score 7 - 10: 72.7% MACE over next 6 weeks - Early Invasive Strategies Current Medications: Current Medications Medications (Trade) Dose Ordered Sig/Taqueria Start Time Stop Time Status Last Admin Dose Admin Info (CONTRAST GIVEN -- Rx MONITORING) 1 each PRN DAILY PRN 11/02/21 17:00 11/02/21 17:00 DC Iohexol (Omnipaque 300 Mg/ml) 75 ml 1X ONCE 11/02/21 17:00 11/02/21 17:00 DC Morphine Sulfate (Morphine Sulfate) 4 mg 1X ONCE 11/02/21 16:30 11/02/21 16:34 DC Ondansetron HCl (Zofran) 4 mg 1X ONCE 11/02/21 16:30 11/02/21 16:34 DC Sodium Chloride 1,000 ml @ 1,000 mls/hr 1X ONCE 11/02/21 16:30 11/02/21 17:00 DC Allergies: Allergies: Allergies Coded Allergies Type Severity Reaction Last Updated Verified ketorolac Allergy Severe rash 10/13/21 Yes levofloxacin Allergy Intermediate Rash 10/13/21 Yes shellfish derived Allergy Intermediate RASH/ITCH 10/13/21 Yes vancomycin Allergy Intermediate Rash 10/13/21 Yes NSAIDS (Non-Steroidal Anti-Inflamma Adverse Reaction Severe contraindicated due to history of ulcers 10/13/21 Yes Physical Exam: PE: Constitutional: Well developed, well nourished, no acute distress, non-toxic appearance. [] HENT: Normocephalic, atraumatic, bilateral external ears normal, oropharynx moist, no oral exudates, nose normal. [] Eyes: PERRLA, EOMI, conjunctiva normal, no discharge. [] Neck: Normal range of motion, no tenderness, supple, no stridor. [] Cardiovascular:Heart rate regular rhythm, no murmur [] Lungs & Thorax: Bilateral breath sounds clear to auscultation [] Abdomen: Bowel sounds normal, soft, diffuse tenderness to the lower abdomen with no obvious point tenderness to the right lower quadrant, negative Gonzalez sign, negative obturator sign, negative Rovsing sign, no masses, no pulsatile masses. [] Skin: Warm, dry, no erythema, no rash. [] Back: No tenderness, no CVA tenderness. [] Extremities: No tenderness, no cyanosis, no clubbing, ROM intact, no edema. [] Neurologic: Alert and oriented X 3, normal motor function, normal sensory function, no focal deficits noted. [] Psychologic: Affect normal, judgement normal, mood normal. [] Current Patient Data: Labs: Laboratory Tests Test 11/02/21 16:27 Urine Collection Type Unknown Urine Color Yellow Urine Clarity Clear Urine pH 6.0 (<5.0-8.0) Urine Specific [place] 1.020 (1.000-1.030) Urine Protein Negative mg/dL (NEG-TRACE) Urine Glucose (UA) >=1000 mg/dL (NEG) Urine Ketones (Stick) Negative mg/dL (NEG) Urine Blood Trace (NEG) Urine Nitrite Negative (NEG) Urine Bilirubin Negative (NEG) Urine Urobilinogen Dipstick 0.2 mg/dL (0.2 mg/dL) Urine Leukocyte Esterase Negative (NEG) Urine RBC Occ /HPF (0-2) Urine WBC Occ /HPF (0-4) Urine Squamous Epithelial Cells Many /LPF Urine Bacteria 0 /HPF (0-FEW) Urine Opiates Screen Pos (NEG) Urine Methadone Screen Neg (NEG) Urine Barbiturates Neg (NEG) Urine Phencyclidine Screen Neg (NEG) Urine Amphetamine/Methamphetamine Neg (NEG) Urine Benzodiazepines Screen Pos (NEG) Urine Cocaine Screen Neg (NEG) Urine Cannabinoids Screen Neg (NEG) Urine Ethyl Alcohol Neg (NEG) Vital Signs: Vital Signs Date Time Temp Pulse Resp B/P (MAP) Pulse Ox O2 Delivery O2 Flow Rate FiO2 11/02/21 16:25 99.0 88 16 139/81 (100) 98 Room Air 99.0 EKG: EKG: [] Radiology/Procedures: Radiology/Procedures: [] Course & Med Decision Making: Course & Med Decision Making Pertinent Labs and Imaging studies reviewed. (See chart for details) This is a 41-year-old female patient well-known to this ED for chronic hyperglycemia and chronic abdominal pain presenting today complaining of low abdominal pain and constipation. She states she was diagnosed with colitis a week ago and was on Augmentin. Patient is requesting something for her pain. As i was talking to patient doing a physical exam informed her if she is constipated the pain medicine will make her constipation worse. Labs were ordered as well as CT of the abd and pelvis Patient eloped Amalia Disclaimer: Amalia Disclaimer: This electronic medical record was generated, in whole or in part, using a voice recognition dictation system. Departure Departure Impression: Primary Impression: Abdominal pain Qualified Codes: R10.30 - Lower abdominal pain, unspecified Disposition: LEFT AGAINST MEDICAL ADVICE Condition: STABLE Referrals: BROOK CARABALLO MD (PCP) ROXANN DEWITT PHARMACIST HELPER Nov 02, 2021 17:08
== END 2021-11-02 17:00 | disposition left against medical advice (07) ==
LOC: ER 15:19
DX: R10.30 Lower abdominal pain, unspecified (principal); K59.00 Constipation, unspecified; J44.9 Chronic obstructive pulmonary disease, unspecified; E11.9 Type 2 diabetes mellitus without complications; F41.9 Anxiety disorder, unspecified; F32.9 Major depressive disorder, single episode, unspecified; Z88.1 Allergy status to other antibiotic agents; Z91.013 Allergy to seafood; Z88.8 Allergy status to other drugs, medicaments and biological substances; Z88.6 Allergy status to analgesic agent
CPT/HCPCS: 80307; 81001; 99283

== ENCOUNTER 2021-11-16 21:27 | Inpatient (IN) | payer BC ==
[~2021-11-16] VITALS: Ht 165.1 cm; Wt 84.0 kg
--- NOTE | 2021-11-16 22:59 | PHYS DOC ---
Past Medical History Past Medical History: Anxiety, COPD, Depression, Diabetes-Type I, Diabetes-Type II, Other Additional Past Medical Histor: PHILLIPS STAGE III, hydranitis,INOCENCIA,PORTAL HTN, hypobetaliproteinemia (ROXANN DEWITT CASING RUNNER) Past Surgical History: Cholecystectomy, Other Additional Past Surgical Histo: NASAL SEPTAL, hernia repair, INSUIN PUMP (ROXANN DEWITT CASING RUNNER) Smoking Status: Never Smoker Alcohol Use: None Drug Use: None (ROXANN DEWITT CASING RUNNER) General Adult EDM: Chief Complaint: CONSTIPATION HPI: HPI: Patient is a 41 year old female who presents to the ED today complaining of constipation. Patient states 1 week ago she accidentally swallowed some paperclips. She states she had a paperclip in her mouth and her daughter came from the back and hit her head and she hit something and swallowed the clips. Patient states she has not had a normal bowel movement for one week. She states she has had 2 "nugget" size bowel movements for the last seven days. She states she has tried stool softeners with laxative as well as mag citrate this morning with no improvement. Denies any abdominal pain but reports feeling full. Denies any suicidal/ homicidal ideations. Off note she was seen at [facility] on November 07, 2021 with chief complaint of swallowing magnets (ROXANN DEWITT CASING RUNNER) Review of Systems: Review of Systems: Constitutional: Denies fever or chills. [] Eyes: Denies change in visual acuity. [] HENT: Denies nasal congestion or sore throat. [] Respiratory: Denies cough or shortness of breath. [] Cardiovascular: Denies chest pain or edema. [] GI: Reports constipation, and swallowing paperclip, denies nausea, vomiting, bloody stools or diarrhea. [] : Denies dysuria. [] Musculoskeletal: Denies back pain or joint pain. [] Integument: Denies rash. [] Neurologic: Denies headache, focal weakness or sensory changes. [] Endocrine: Denies polyuria or polydipsia. [] Psychiatric: Denies depression or anxiety. [] (ROXANN DEWITT CASING RUNNER) Heart Score: C/O Chest Pain: N/A Risk Factors: Risk Factors: DM, Current or recent (<one month) smoker, HTN, HLP, family history of CAD, obesity. Risk Scores: Score 0 - 3: 2.5% MACE over next 6 weeks - Discharge Home Score 4 - 6: 20.3% MACE over next 6 weeks - Admit for Clinical Observation Score 7 - 10: 72.7% MACE over next 6 weeks - Early Invasive Strategies (ROXANN DEWITT APRN) Allergies: Allergies: Allergies Coded Allergies Type Severity Reaction Last Updated Verified ketorolac Allergy Severe rash 10/13/21 Yes levofloxacin Allergy Intermediate Rash 10/13/21 Yes shellfish derived Allergy Intermediate RASH/ITCH 10/13/21 Yes vancomycin Allergy Intermediate Rash 10/13/21 Yes NSAIDS (Non-Steroidal Anti-Inflamma Adverse Reaction Severe contraindicated due to history of ulcers 10/13/21 Yes (ROXANN DEWITT CASING RUNNER) Physical Exam: PE: Constitutional: Well developed, well nourished, no acute distress, non-toxic appearance. [] HENT: Normocephalic, atraumatic, bilateral external ears normal, oropharynx moist, no oral exudates, nose normal. [] Eyes: PERRLA, EOMI, conjunctiva normal, no discharge. [] Neck: Normal range of motion, no tenderness, supple, no stridor. [] Cardiovascular:Heart rate regular rhythm, no murmur [] Lungs & Thorax: Bilateral breath sounds clear to auscultation [] Abdomen:Rounded abdomen. Bowel sounds normal, soft, no tenderness, no masses, no pulsatile masses. [] Skin: Warm, dry, no erythema, no rash. [] Back: No tenderness, no CVA tenderness. [] Extremities: No tenderness, no cyanosis, no clubbing, ROM intact, no edema. [] Neurologic: Alert and oriented X 3, normal motor function, normal sensory function, no focal deficits noted. [] Psychologic: Affect normal, judgement normal, mood normal. [] (ROXANN DEWITT CASING RUNNER) Current Patient Data: Vital Signs: Vital Signs Date Time Temp Pulse Resp B/P (MAP) Pulse Ox O2 Delivery O2 Flow Rate FiO2 11/16/21 22:00 98.8 96 18 129/77 (94) 98 Room Air 98.8 (ROXANN DEWITT CASING RUNNER) EKG: EKG: [] (ROXANN DEWITT CASING RUNNER) Radiology/Procedures: Radiology/Procedures: []PROCEDURE: KUB Exam: Abdomen one view INDICATION: Swallowed paper clip TECHNIQUE: Supine view the abdomen Comparisons: CT 07/26/2021 FINDINGS: Metallic foreign body noted in the upper midabdomen likely within the stomach. No suspicious masses or calcifications. Visualized osseous structures are unremarkable. IMPRESSION: Metallic foreign body in the upper midabdomen likely within the stomach. Nonobstructive bowel gas pattern. Electronically signed by: Abiel Hernandez MD (11/16/2021 11:11 PM) MEHUL DICTATED and SIGNED BY: ABIEL HERNANDEZ MD DATE: 11/16/212309 PROCEDURE: CHEST AP ONLY Exam: Chest one view INDICATION: Swallowed paper clip one week ago TECHNIQUE: Frontal view of the chest Comparisons: 07/26/2021 FINDINGS: Generator with lead terminating in the right cervical region. The cardiomediastinal silhouette and pulmonary vessels are within normal limits. The lung and pleural spaces are clear. IMPRESSION: No acute cardiopulmonary process. Electronically signed by: Abiel Hernandez MD (11/16/2021 11:10 PM) MEHUL DICTATED and SIGNED BY: ABIEL HERNANDEZ MD DATE: 11/16/212308 (ROXANN DEWITT APRN) Course & Med Decision Making: Course & Med Decision Making Pertinent Labs and Imaging studies reviewed. (See chart for details) This is a 41-year-old female patient well-known to this ED presenting today to be evaluated for constipation and swallowing a paperclip a week ago. Off note patient was seen at [facility] on November 07, 2021 with complaint of swallowing magnets. This seems to raise concerns for attention seeking behavior. She refused pysch consult Chest x-ray interpreted by radiologist as negative for any acute findings KUB noted for metallic foreign body in the upper midabdomen likely within the stomach. Nonobstructive bowel gas pattern. Several attempts were done to get a hold of GI Dr. Carter technical operations specialist with no s uccess. Patient will be admitted and GI will be consulted early in the morning Dr. Wilcox called back. Requested we keep trying to get a hold of Dr. Carter (ROXANN DEWITT APRN) Course & Med Decision Making This patient was initially seen by the nurse practitioner. I reviewed imaging studies and laboratory exams. The patient requires hospitalization/admission and GI consultation. She will likely require endoscopy for removal of sharp metallic foreign bodies, volitionally swallowed by her almost a week ago. Initially GI was difficult to get a hold of but I was able to speak with Dr. Mohan the morning of admission, he will see her. He is familiar with her and has seen her previously. The patient is accepted for admission by Dr. Bateman. (PETER VELEZ DO) Dragon Disclaimer: Dragon Disclaimer: This electronic medical record was generated, in whole or in part, using a voice recognition dictation system. (ROXANN DEWITT APRN) Departure Departure Impression: Primary Impression: Constipation Qualified Codes: K59.00 - Constipation, unspecified Additional Impression: Swallowed foreign body Qualified Codes: T18.9XXA - Foreign body of alimentary tract, part unspecified, initial encounter Disposition: ADMITTED INPATIENT Condition: STABLE Referrals: BROOK CARABALLO MD (PCP) ROXANN DEWITT APRN Nov 16, 2021 22:59 PETER VELEZ DO Nov 18, 2021 05:02
--- NOTE | 2021-11-16 23:12 | RAD ---
Exam: Chest one view INDICATION: Swallowed paper clip one week ago TECHNIQUE: Frontal view of the chest Comparisons: 07/26/2021 FINDINGS: Generator with lead terminating in the right cervical region. The cardiomediastinal silhouette and pulmonary vessels are within normal limits. The lung and pleural spaces are clear. IMPRESSION: No acute cardiopulmonary process. Electronically signed by: Abiel Parra MD (11/16/2021 11:10 PM) MEHUL
--- NOTE | 2021-11-16 23:13 | RAD ---
Exam: Abdomen one view INDICATION: Swallowed paper clip TECHNIQUE: Supine view the abdomen Comparisons: CT 07/26/2021 FINDINGS: Metallic foreign body noted in the upper midabdomen likely within the stomach. No suspicious masses or calcifications. Visualized osseous structures are unremarkable. IMPRESSION: Metallic foreign body in the upper midabdomen likely within the stomach. Nonobstructive bowel gas pat tern. Electronically signed by: Abiel Parra MD (11/16/2021 11:11 PM) MEHUL
[2021-11-17] MEDS ORDERED: ONDANSETRON PF 4 MG/2 ML VIAL. IVP PRN ×2 (01:15→12:00)
[2021-11-17 03:15] VITALS: BP 115/81
[2021-11-17] MEDS ORDERED: INSU100V6 SQ (05:07)
[2021-11-17] MEDS ORDERED: BUPR100T7 PO (05:07)
[2021-11-17] MEDS ORDERED: INSU100I13 SQ (05:07)
[2021-11-17] MEDS: MORPHINE SULFATE 4 MG/ML INJ. IVP PRN ×5 (05:17→21:04)
[2021-11-17 05:28] LABS: ALBUMIN 3.9 g/dL (3.4-5.0); ALBUMIN/GLOBULIN RATIO 0.9 (1.0-1.7); CALCIUM 9.4 mg/dL (8.5-10.1); CREATININE 0.6 mg/dL (0.6-1.0); GFR 110.2; POTASSIUM 4.1 mmol/L (3.5-5.1); TOTAL BILIRUBIN 0.7 mg/dL (0.2-1.0); TOTAL PROTEIN 8.1 g/dL (6.4-8.2)
[2021-11-17 06:01] LABS: BASO # 0.1 x10^3/uL (0.0-0.2); BASO % 1 % (0-3); EOS # 0.1 x10^3/uL (0.0-0.7); EOS % 1 % (0-3); HEMATOCRIT 42.5 % (36.0-47.0); LYMPH # 2.8 x10^3/uL (1.0-4.8); LYMPH % 28 % (24-48); MEAN CORPUSCULAR HEMOGLOBIN 29 pg (25-35); MEAN CORPUSCULAR HGB CONC 33 g/dL (31-37); MEAN CORPUSCULAR VOLUME 87 fL (79-100); MONO # 0.6 x10^3/uL (0.0-1.1); MONO % 6 % (0-9); NEUT # 6.4 x10^3/uL (1.8-7.7); NEUT % 64 % (31-73); PLATELET COUNT 233 x10^3/uL (140-400); RED CELL DISTRIBUTION WIDTH 16.6 % (11.5-14.5)
[2021-11-17 07:00] VITALS: BP 102/62
[2021-11-17 11:34] VITALS: BP 128/69
[2021-11-17] MEDS ORDERED: ALPRAZolam 1 MG TABLET PO PRN (12:00)
[2021-11-17] MEDS: INSULIN LISPRO 300 UNITS/3 ML VIAL. SQ SCH ×2 (12:00→17:00)
[2021-11-17] MEDS ORDERED: ACETAMINOPHEN 325 MG TABLET. PO PRN (12:00)
[2021-11-17] MEDS ORDERED: ELECTROLYTE (NON-ICU) PROTOCOL. MC PRN (12:00)
[2021-11-17] MEDS ORDERED: CALCIUM CARBONATE 500 MG TAB.CHEW PO PRN (12:00)
[2021-11-17] MEDS ORDERED: ONDANSETRON ODT 4 MG TAB.RAPDIS. PO PRN (12:00)
--- NOTE | 2021-11-17 12:01 | PDOC2 ---
CONSULT Date of Consult Date of Consult DATE: 11/17/21 TIME: 11:55 Reason for Consult Reason for Consult: Recurrent ingested foreign bodies History of Present Illness Reason for Visit: 41 yo Female present with recurrent foreign body ingestions. Claims each ingestion is unintentional. Most recent was multiple magnets. This visit includes paperclips. Presently without pain or nausea. KUB suggested gastric retention. patient is without additional complaints and refused to see psychiatry. Past Medical History Cardiovascular: HTN CENTRAL NERVOUS SYSTEM: Periperal neuropathy GI: Constipation, GERD Psych: Anxiety, Depression Endocrine: Diabetes Past Surgical History Past Surgical History: Cholecystectomy, Hysterectomy Family History Family History: Diabetes, Hypertension Social History ALCOHOL: none Drugs: None Lives: with Family Current Problem List Problem List Problems Medical Problems: (1) Constipation Status: Acute Current Medications Current Medications Current Medications Ondansetron HCl (Zofran) 4 mg PRN Q8HRS PRN IVP NAUSEA/VOMITING Last administered on 11/17/21at 07:56; Start 11/17/21 at 01:15; Stop 11/18/21 at 01:14 Morphine Sulfate (Morphine Sulfate) 4 mg PRN Q2HR PRN IVP PAIN Last administered on 11/17/21at 07:57; Start 11/17/21 at 01:15; Stop 11/18/21 at 01:14 Bupropion HCl (Wellbutrin Sr) 100 mg BID PO ; Start 11/17/21 at 21:00; Status UNV Gabapentin (Neurontin) 300 mg TID PO ; Start 11/17/21 at 14:00 Insulin Human Regular (HumuLIN R VIAL) 20 unit TIDWMEALS SQ ; Start 11/17/21 at 12:00; Status UNV Ondansetron HCl (Zofran Odt) 4 mg PRN Q4HRS PRN PO NAUSEA; Start 11/17/21 at 12:00; Status UNV Non-Formulary Medication (Alprazolam (Xanax)) 2 mg PRN TID PRN PO ANXIETY / AGITATION; Start 11/17/21 at 12:00; Status UNV Non-Formulary Medication (Insulin Glargine,Hum.rec.anlog (Lantus Solostar)) 36 unit BID SQ ; Start 11/17/21 at 21:00; Status UNV Non-Formulary Medication (Pantoprazole Sodium (Protonix)) 40 mg DAILY PO ; Start 11/18/21 at 09:00; Status UNV Non-Formulary Medication (Quetiapine Fumarate (Seroquel)) 1 tab QHS PO ; Start 11/17/21 at 21:00; Status UNV Ondansetron HCl (Zofran) 4 mg PRN Q6HRS PRN IVP NAUSEA/VOMITING; Start 11/17/21 at 12:00; Status UNV Calcium Carbonate/ Glycine (Tums) 500 mg PRN Q3HRS PRN PO UPSET STOMACH; Start 11/17/21 at 12:00; Status UNV Info (Non-Icu Electrolyte Protocol) 1 ea PRN DAILY PRN MC SEE COMMENTS; Start 11/17/21 at 12:00; Status UNV Acetaminophen (Tylenol) 650 mg PRN Q6HRS PRN PO Headaches, Temp > 101.5F; Start 11/17/21 at 12:00; Status UNV Senna/Docusate Sodium (Senna Plus) 1 tab BID PO ; Start 11/17/21 at 21:00; Status UNV Active Scripts Active Promethazine Hcl 25 Mg Tablet 1 Tab PO PRN Q6HRS Ondansetron Odt (Ondansetron) 4 Mg Tab.rapdis 1 Tab PO PRN Q6-8HRS PRN Reported Humalog (Insulin Lispro) 100 Unit/1 Ml Vial 20 Unit SQ TIDWMEALS Lantus Solostar (Insulin Glargine,Hum.rec.anlog) 100 Unit/1 Ml Insuln.pen 36 Unit SQ BID Wellbutrin Sr (Bupropion Hcl) 100 Mg Tablet.er 100 Mg PO BID Trintellix (Vortioxetine) 20 Mg Tablet 1 Tab PO DAILY 30 Days Seroquel (Quetiapine Fumarate) 400 Mg Tablet 1 Tab PO QHS Xanax (Alprazolam) 2 Mg Tablet 2 Mg PO PRN TID PRN Gabapentin (Gabapentin) 300 Mg Capsule 300 Mg PO TID Protonix (Pantoprazole Sodium) 20 Mg Tablet.dr 40 Mg PO DAILY Allergies Allergies: Coded Allergies: ketorolac (Verified Allergy, Severe, rash, 10/13/21) levofloxacin (Verified Allergy, Intermediate, Rash, 10/13/21) shellfish derived (Verified Allergy, Intermediate, RASH/ITCH, 10/13/21) vancomycin (Verified Allergy, Intermediate, Rash, 10/13/21) NSAIDS (Non-Steroidal Anti-Inflamma (Verified Adverse Reaction, Severe, contraindicated due to history of ulcers, 10/13/21) Physical Exam General: Alert Lungs: Clear to auscultation Heart: Normal S1, Normal S2 Abdomen: Normal bowel sounds, Soft, No tenderness Vitals VITALS Vital Signs Date Time Temp Pulse Resp B/P (MAP) Pulse Ox O2 Delivery O2 Flow Rate FiO2 11/17/21 11:34 98.4 86 18 128/69 (88) 98 Room Air 98.4 Labs Labs Laboratory Tests Test 11/17/21 02:45 11/17/21 04:00 11/17/21 05:02 11/17/21 07:19 SARS-CoV-2 Antigen (Rapid) Negative (NEGATIVE) Sodium Level 138 mmol/L (136-145) Potassium Level 4.1 mmol/L (3.5-5.1) Chloride Level 101 mmol/L (98-107) Carbon Dioxide Level 28 mmol/L (21-32) Anion Gap 9 (6-14) Blood Urea Nitrogen 11 mg/dL (7-20) Creatinine 0.6 mg/dL (0.6-1.0) Estimated GFR (Cockcroft-Gault) 110.2 BUN/Creatinine Ratio 18 (6-20) Glucose Level 298 mg/dL (70-99) Calcium Level 9.4 mg/dL (8.5-10.1) Total Bilirubin 0.7 mg/dL (0.2-1.0) Aspartate Amino Transf (AST/SGOT) 43 U/L (15-37) Alanine Aminotransferase (ALT/SGPT) 70 U/L (14-59) Alkaline Phosphatase 117 U/L (46-116) Total Protein 8.1 g/dL (6.4-8.2) Albumin 3.9 g/dL (3.4-5.0) Albumin/Globulin Ratio 0.9 (1.0-1.7) White Blood Count 10.0 x10^3/uL (4.0-11.0) Red Blood Count 4.90 x10^6/uL (3.50-5.40) Hemoglobin 14.0 g/dL (12.0-15.5) Hematocrit 42.5 % (36.0-47.0) Mean Corpuscular Volume 87 fL (79-100) Mean Corpuscular Hemoglobin 29 pg (25-35) Mean Corpuscular Hemoglobin Concent 33 g/dL (31-37) Red Cell Distribution Width 16.6 % (11.5-14.5) Platelet Count 233 x10^3/uL (140-400) Neutrophils (%) (Auto) 64 % (31-73) Lymphocytes (%) (Auto) 28 % (24-48) Monocytes (%) (Auto) 6 % (0-9) Eosinophils (%) (Auto) 1 % (0-3) Basophils (%) (Auto) 1 % (0-3) Neutrophils # (Auto) 6.4 x10^3/uL (1.8-7.7) Lymphocytes # (Auto) 2.8 x10^3/uL (1.0-4.8) Monocytes # (Auto) 0.6 x10^3/uL (0.0-1.1) Eosinophils # (Auto) 0.1 x10^3/uL (0.0-0.7) Basophils # (Auto) 0.1 x10^3/uL (0.0-0.2) Glucose (Fingerstick) 275 mg/dL (70-99) Laboratory Tests Test 11/17/21 02:45 11/17/21 04:00 11/17/21 05:02 11/17/21 07:19 SARS-CoV-2 Antigen (Rapid) Negative (NEGATIVE) Sodium Level 138 mmol/L (136-145) Potassium Level 4.1 mmol/L (3.5-5.1) Chloride Level 101 mmol/L (98-107) Carbon Dioxide Level 28 mmol/L (21-32) Anion Gap 9 (6-14) Blood Urea Nitrogen 11 mg/dL (7-20) Creatinine 0.6 mg/dL (0.6-1.0) Estimated GFR (Cockcroft-Gault) 110.2 BUN/Creatinine Ratio 18 (6-20) Glucose Level 298 mg/dL (70-99) Calcium Level 9.4 mg/dL (8.5-10.1) Total Bilirubin 0.7 mg/dL (0.2-1.0) Aspartate Amino Transf (AST/SGOT) 43 U/L (15-37) Alanine Aminotransferase (ALT/SGPT) 70 U/L (14-59) Alkaline Phosphatase 117 U/L (46-116) Total Protein 8.1 g/dL (6.4-8.2) Albumin 3.9 g/dL (3.4-5.0) Albumin/Globulin Ratio 0.9 (1.0-1.7) White Blood Count 10.0 x10^3/uL (4.0-11.0) Red Blood Count 4.90 x10^6/uL (3.50-5.40) Hemoglobin 14.0 g/dL (12.0-15.5) Hematocrit 42.5 % (36.0-47.0) Mean Corpuscular Volume 87 fL (79-100) Mean Corpuscular Hemoglobin 29 pg (25-35) Mean Corpuscular Hemoglobin Concent 33 g/dL (31-37) Red Cell Distribution Width 16.6 % (11.5-14.5) Platelet Count 233 x10^3/uL (140-400) Neutrophils (%) (Auto) 64 % (31-73) Lymphocytes (%) (Auto) 28 % (24-48) Monocytes (%) (Auto) 6 % (0-9) Eosinophils (%) (Auto) 1 % (0-3) Basophils (%) (Auto) 1 % (0-3) Neutrophils # (Auto) 6.4 x10^3/uL (1.8-7.7) Lymphocytes # (Auto) 2.8 x10^3/uL (1.0-4.8) Monocytes # (Auto) 0.6 x10^3/uL (0.0-1.1) Eosinophils # (Auto) 0.1 x10^3/uL (0.0-0.7) Basophils # (Auto) 0.1 x10^3/uL (0.0-0.2) Glucose (Fingerstick) 275 mg/dL (70-99) Assessment/Plan Assessment/Plan Recurrent foreign body ingestion- psychiatry input needed snf. interval KUB in am, If paperclips are still in stomach, then endoscopy to possible retrieve would be pursued. Attention seeking behavior is becoming more problematic and repetitive TIKI BURNS MD Nov 17, 2021 12:01
[2021-11-17] MEDS: GABAPENTIN 300 MG CAPSULE. PO SCH ×2 (14:00→21:17)
[2021-11-17] MEDS ORDERED: BUPR100T8 PO (14:01)
[2021-11-17 15:00] VITALS: BP 107/62
[2021-11-17] MEDS: buPROPion SR 100 MG TABLET.SA. PO SCH (15:26)
--- NOTE | 2021-11-17 16:20 | PDOC1 ---
History and Physical Date of Service: DOS: DATE: 11/17/21 TIME: 16:17 Chief Complaint: Chief Complain: Foreign body ingestion History of Present Illness: HPI: Patient is a 41 year old female who presents to the ED today complaining of constipation. Patient states 1 week ago she accidentally swallowed some paperclips. She states she had a paperclip in her mouth and her daughter came from the back and hit her head and she hit something and swallowed the clips. Patient states she has not had a normal bowel movement for one week. She states she has had 2 "nugget" size bowel movements for the last seven days. She states she has tried stool softeners with laxative as well as mag citrate this morning with no improvement. Denies any abdominal pain but reports feeling full. Denies any suicidal/ homicidal ideations. Off note she was seen at [facility] on November 07, 2021 with chief complaint of swallowing magnets This is apparently a very common thing with the patient and outpatient psych follow-up is highly recommended Past Medical/Surgical History: PMH/PSH: Past Medical History: Anxiety, COPD, Depression, Diabetes-Type II, Other Additional Past Medical Histor: PHILLIPS STAGE III, hydranitis,INOCENCIA,PORTAL HTN, hypobetaliproteinemia Past Surgical History: Cholecystectomy, Other Additional Past Surgical Histo: NASAL SEPTAL, hernia repair, INSUIN PUMP Smoking Status: Never Smoker Alcohol Use: None Drug Use: None Allergies: Allergies: Coded Allergies: ketorolac (Verified Allergy, Severe, rash, 10/13/21) levofloxacin (Verified Allergy, Intermediate, Rash, 10/13/21) shellfish derived (Verified Allergy, Intermediate, RASH/ITCH, 10/13/21) vancomycin (Verified Allergy, Intermediate, Rash, 10/13/21) NSAIDS (Non-Steroidal Anti-Inflamma (Verified Adverse Reaction, Severe, contraindicated due to history of ulcers, 10/13/21) Family History: Family History: DM Current Medications: Current Medications Current Medications Ondansetron HCl (Zofran) 4 mg PRN Q8HRS PRN IVP NAUSEA/VOMITING Last administered on 11/17/21at 07:56; Start 11/17/21 at 01:15; Stop 11/17/21 at 12:25; Status DC Morphine Sulfate (Morphine Sulfate) 4 mg PRN Q2HR PRN IVP PAIN Last administered on 11/17/21at 13:00; Start 11/17/21 at 01:15; Stop 11/18/21 at 01:14 Bupropion HCl (Wellbutrin Sr) 200 mg DAILY PO Last administered on 11/17/21at 15:26; Start 11/17/21 at 15:00 Gabapentin (Neurontin) 300 mg TID PO ; Start 11/17/21 at 14:00 Insulin Human Lispro (HumaLOG) 20 units TIDWMEALS SQ ; Start 11/17/21 at 12:00 Ondansetron HCl (Zofran Odt) 4 mg PRN Q4HRS PRN PO NAUSEA; Start 11/17/21 at 12:00 Alprazolam (Xanax) 2 mg PRN Q8HRS PRN PO ANXIETY / AGITATION Last administered on 11/17/21at 15:26; Start 11/17/21 at 12:00 Insulin Glargine (Lantus Syringe) 36 unit BID SQ ; Start 11/17/21 at 21:00 Pantoprazole Sodium (Protonix) 40 mg DAILYAC PO ; Start 11/18/21 at 07:30 Quetiapine Fumarate (SEROquel XR) 300 mg QHS PO ; Start 11/17/21 at 21:00 Ondansetron HCl (Zofran) 4 mg PRN Q6HRS PRN IVP NAUSEA/VOMITING; Start 11/17/21 at 12:00; Stop 11/17/21 at 12:35; Status DC Calcium Carbonate/ Glycine (Tums) 500 mg PRN Q3HRS PRN PO UPSET STOMACH; Start 11/17/21 at 12:00 Info (Non-Icu Electrolyte Protocol) 1 ea PRN DAILY PRN MC SEE COMMENTS; Start 11/17/21 at 12:00 Acetaminophen (Tylenol) 650 mg PRN Q6HRS PRN PO Headaches, Temp > 101.5F; Start 11/17/21 at 12:00 Senna/Docusate Sodium (Senna Plus) 1 tab BID PO ; Start 11/17/21 at 21:00 Quetiapine Fumarate (SEROquel XR) 100 mg HS PO ; Start 11/18/21 at 21:00 Active Scripts Active Promethazine Hcl 25 Mg Tablet 1 Tab PO PRN Q6HRS Ondansetron Odt (Ondansetron) 4 Mg Tab.rapdis 1 Tab PO PRN Q6-8HRS PRN Reported Bupropion Hcl Sr (Bupropion Hcl) 100 Mg Tablet.er 2 Tab PO DAILYWBKFT Humalog (Insulin Lispro) 100 Unit/1 Ml Vial 20 Unit SQ TIDWMEALS Lantus Solostar (Insulin Glargine,Hum.rec.anlog) 100 Unit/1 Ml Insuln.pen 36 U nit SQ BID Trintellix (Vortioxetine) 20 Mg Tablet 1 Tab PO DAILY 30 Days Seroquel (Quetiapine Fumarate) 400 Mg Tablet 1 Tab PO QHS Xanax (Alprazolam) 2 Mg Tablet 2 Mg PO PRN TID PRN Gabapentin (Gabapentin) 300 Mg Capsule 300 Mg PO TID Protonix (Pantoprazole Sodium) 20 Mg Tablet.dr 40 Mg PO DAILY ROS: Review of Systems Review of System Unless noted in HPI 14pt ROS negative Physical Exam: Vital Signs: Vital Signs Date Time Temp Pulse Resp B/P (MAP) Pulse Ox O2 Delivery O2 Flow Rate FiO2 11/17/21 15:00 97.8 93 18 107/62 (77) 94 Room Air 97.8 Physcial Exam: GEN: No apparent distress. Alert and oriented HEENT: Normal cephalic, atraumatic, external auditory canals are patent EYES: Extraocular muscles are intact, pupil are equally round and reactive to light and accommodation MUSCULOSKELETAL: Well developed , well nourished, good range of motion ENDOCRINE: No thyromegaly was palpated LYMPHATICS: No cervical chain or axillary nodes were noted HEMATOPOIETIC: No bruising NECK: Supple, no JVD, no thyromegaly was noted LUNGS: Clear to auscultation in all lung celaya without rhonchi or wheezing HEART: RRR, S!, S2 present. Peripheral pulses intact, no obvious murmurs noted ABDOMEN: Soft, nontender. Positive bowel sounds, no organomegaly, normal bowel sounds EXTREMITIES: Without clubbing, cyanosis, or edema. Pedal pulses intact. Negative Homans sign NEUROLOGIC: Normal speech and tone. A&O x 3, moves all extremities, no obvious focal deficits PSYCHIATRIC: Normal affect, normal mood. Stable SKIN: No ulcerations or rashes, good skin turgor, no jaundice VASCULAR: Good capillary refill, neurovascular bundle appears to be intact Labs: Labs: Laboratory Tests Test 11/17/21 02:45 11/17/21 04:00 11/17/21 05:02 11/17/21 07:19 Coronavirus (COVID-19)(PCR) Not detected (NOT DETECTD) SARS-CoV-2 Antigen (Rapid) Negative (NEGATIVE) Sodium Level 138 mmol/L (136-145) Potassium Level 4.1 mmol/L (3.5-5.1) Chloride Level 101 mmol/L (98-107) Carbon Dioxide Level 28 mmol/L (21-32) Anion Gap 9 (6-14) Blood Urea Nitrogen 11 mg/dL (7-20) Creatinine 0.6 mg/dL (0.6-1.0) Estimated GFR (Cockcroft-Gault) 110.2 BUN/Creatinine Ratio 18 (6-20) Glucose Level 298 mg/dL (70-99) Calcium Level 9.4 mg/dL (8.5-10.1) Total Bilirubin 0.7 mg/dL (0.2-1.0) Aspartate Amino Transf (AST/SGOT) 43 U/L (15-37) Alanine Aminotransferase (ALT/SGPT) 70 U/L (14-59) Alkaline Phosphatase 117 U/L (46-116) Total Protein 8.1 g/dL (6.4-8.2) Albumin 3.9 g/dL (3.4-5.0) Albumin/Globulin Ratio 0.9 (1.0-1.7) White Blood Count 10.0 x10^3/uL (4.0-11.0) Red Blood Count 4.90 x10^6/uL (3.50-5.40) Hemoglobin 14.0 g/dL (12.0-15.5) Hematocrit 42.5 % (36.0-47.0) Mean Corpuscular Volume 87 fL (79-100) Mean Corpuscular Hemoglobin 29 pg (25-35) Mean Corpuscular Hemoglobin Concent 33 g/dL (31-37) Red Cell Distribution Width 16.6 % (11.5-14.5) Platelet Count 233 x10^3/uL (140-400) Neutrophils (%) (Auto) 64 % (31-73) Lymphocytes (%) (Auto) 28 % (24-48) Monocytes (%) (Auto) 6 % (0-9) Eosinophils (%) (Auto) 1 % (0-3) Basophils (%) (Auto) 1 % (0-3) Neutrophils # (Auto) 6.4 x10^3/uL (1.8-7.7) Lymphocytes # (Auto) 2.8 x10^3/uL (1.0-4.8) Monocytes # (Auto) 0.6 x10^3/uL (0.0-1.1) Eosinophils # (Auto) 0.1 x10^3/uL (0.0-0.7) Basophils # (Auto) 0.1 x10^3/uL (0.0-0.2) Glucose (Fingerstick) 275 mg/dL (70-99) Test 11/17/21 12:18 Glucose (Fingerstick) 267 mg/dL (70-99) Laboratory Tests Test 11/17/21 02:45 11/17/21 04:00 11/17/21 05:02 11/17/21 07:19 Coronavirus (COVID-19)(PCR) Not detected (NOT DETECTD) SARS-CoV-2 Antigen (Rapid) Negative (NEGATIVE) Sodium Level 138 mmol/L (136-145) Potassium Level 4.1 mmol/L (3.5-5.1) Chloride Level 101 mmol/L (98-107) Carbon Dioxide Level 28 mmol/L (21-32) Anion Gap 9 (6-14) Blood Urea Nitrogen 11 mg/dL (7-20) Creatinine 0.6 mg/dL (0.6-1.0) Estimated GFR (Cockcroft-Gault) 110.2 BUN/Creatinine Ratio 18 (6-20) Glucose Level 298 mg/dL (70-99) Calcium Level 9.4 mg/dL (8.5-10.1) Total Bilirubin 0.7 mg/dL (0.2-1.0) Aspartate Amino Transf (AST/SGOT) 43 U/L (15-37) Alanine Aminotransferase (ALT/SGPT) 70 U/L (14-59) Alkaline Phosphatase 117 U/L (46-116) Total Protein 8.1 g/dL (6.4-8.2) Albumin 3.9 g/dL (3.4-5.0) Albumin/Globulin Ratio 0.9 (1.0-1.7) White Blood Count 10.0 x10^3/uL (4.0-11.0) Red Blood Count 4.90 x10^6/uL (3.50-5.40) Hemoglobin 14.0 g/dL (12.0-15.5) Hematocrit 42.5 % (36.0-47.0) Mean Corpuscular Volume 87 fL (79-100) Mean Corpuscular Hemoglobin 29 pg (25-35) Mean Corpuscular Hemoglobin Concent 33 g/dL (31-37) Red Cell Distribution Width 16.6 % (11.5-14.5) Platelet Count 233 x10^3/uL (140-400) Neutrophils (%) (Auto) 64 % (31-73) Lymphocytes (%) (Auto) 28 % (24-48) Monocytes (%) (Auto) 6 % (0-9) Eosinophils (%) (Auto) 1 % (0-3) Basophils (%) (Auto) 1 % (0-3) Neutrophils # (Auto) 6.4 x10^3/uL (1.8-7.7) Lymphocytes # (Auto) 2.8 x10^3/uL (1.0-4.8) Monocytes # (Auto) 0.6 x10^3/uL (0.0-1.1) Eosinophils # (Auto) 0.1 x10^3/uL (0.0-0.7) Basophils # (Auto) 0.1 x10^3/uL (0.0-0.2) Glucose (Fingerstick) 275 mg/dL (70-99) Test 11/17/21 12:18 Glucose (Fingerstick) 267 mg/dL (70-99) Assessment/Plan Assessment/Plan Foreign body ingestion, recurrent; hx anxiety, copd, depression, DM -Patient reportedly accidentally swallowed paperclips. Has been having abdominal distention since decreased stool output -Frequent occurrence with patient suspect diastolic component -GI consultation and look like repeat KUB if no improvement tomorrow possible scope -We will give clear liquids just for tonight. -Home meds as indicated -Discussed with bedside RN. Justifications for Admission Other Justification Hypoglycemia JOHN PAUL VALDEZ MD Nov 17, 2021 16:20
[2021-11-17 19:00] VITALS: BP 119/81
[2021-11-17] MEDS: QUEtiapine 300 MG TAB.ER.24H. PO SCH (21:05)
[2021-11-17] MEDS: SENNOSIDES/DOCUSATE 8.6/50MG TABLET. PO SCH (21:07)
[2021-11-17] MEDS: INSULIN GLARGINE SYRINGE. SQ SCH (21:15)
[2021-11-17 23:00] VITALS: BP 99/71
[2021-11-18] VITALS (7 sets, daily range): BP systolic 103–128; BP diastolic 62–86
[2021-11-18] MEDS: MORPHINE SULFATE 4 MG/ML INJ. IV PRN ×7 (03:22→21:37)
[2021-11-18] MEDS: PANTOPRAZOLE 40 MG TABLET.DR. PO SCH (06:09)
[2021-11-18 07:26] LABS: ALBUMIN 3.8 g/dL (3.4-5.0); CALCIUM 9.3 mg/dL (8.5-10.1); CREATININE 0.7 mg/dL (0.6-1.0); GFR 92.2; POTASSIUM 3.9 mmol/L (3.5-5.1); TOTAL BILIRUBIN 1.3 mg/dL (0.2-1.0); TOTAL PROTEIN 7.6 g/dL (6.4-8.2)
[2021-11-18 07:30] LABS: BASO % 1 % (0-3); EOS # 0.1 x10^3/uL (0.0-0.7); EOS % 1 % (0-3); HEMATOCRIT 41.1 % (36.0-47.0); HEMOGLOBIN 13.7 g/dL (12.0-15.5); LYMPH # 1.9 x10^3/uL (1.0-4.8); LYMPH % 31 % (24-48); MEAN CORPUSCULAR HEMOGLOBIN 29 pg (25-35); MEAN CORPUSCULAR HGB CONC 33 g/dL (31-37); MEAN CORPUSCULAR VOLUME 87 fL (79-100); MONO # 0.5 x10^3/uL (0.0-1.1); MONO % 7 % (0-9); NEUT # 3.7 x10^3/uL (1.8-7.7); NEUT % 60 % (31-73); PLATELET COUNT 198 x10^3/uL (140-400); RED BLOOD COUNT 4.75 x10^6/uL (3.50-5.40); RED CELL DISTRIBUTION WIDTH 16.4 % (11.5-14.5); WHITE BLOOD COUNT 6.1 x10^3/uL (4.0-11.0)
[2021-11-18] MEDS: INSULIN LISPRO 300 UNITS/3 ML VIAL. SQ SCH ×3 (08:00→16:20)
[2021-11-18] MEDS: buPROPion SR 100 MG TABLET.SA. PO SCH (09:00)
[2021-11-18] MEDS: SENNOSIDES/DOCUSATE 8.6/50MG TABLET. PO SCH ×2 (09:00→21:00)
[2021-11-18] MEDS: GABAPENTIN 300 MG CAPSULE. PO SCH ×3 (09:00→21:00)
[2021-11-18] MEDS: INSULIN GLARGINE SYRINGE. SQ SCH ×2 (09:08→21:41)
--- NOTE | 2021-11-18 09:33 | NUR ---
SW following. Discussed with RN, pt from home, room air, NPO, COVID-19 negative. GI following. EGD today. RN advised no SW needs at this time. SW will continue to follow.
--- NOTE | 2021-11-18 09:36 | RAD ---
XR ABDOMEN 1V History: Reason: ingested paperclips / Spl. Instructions: / History: Technique: Supine view the abdomen. Comparison: November 16, 2021 Findings: Two paper clips projecting over the region of the stomach. Surgical clips right upper quadrant. Mild small bowel gas. Air and stool scattered throughout the colon. Impression: 1. Metallic foreign bodies (paper clips) projecting over the stomach. Electronically signed by: Shaji Rosa DO (11/18/2021 9:33 AM) [id number]
--- NOTE | 2021-11-18 10:47 | PDOC ---
[employer] PROGRESS NOTE Date of Service DOS: DATE: 11/18/21 TIME: 10:46 Chief Complaint Chief Complaint Foreign body ingestion, recurrent; hx anxiety, copd, depression, DM -Patient reportedly accidentally swallowed paperclips. Has been having abdominal distention since decreased stool output -Frequent occurrence with patient suspect diastolic component -GI consultation and look like repeat KUB if no improvement tomorrow possible scope --> EGD planned for the morning of 321 -Home meds as indicated -Discussed with bedside RN. History of Present Illness History of Present Illness 11/18 Patient evaluated examined at bedside. Resting in bed. Based on orders looks like plan for EGD today. If all goes well can possibly discharge later this afternoon or evening. Vitals/I&O Vitals/I&O: Vital Signs Date Time Temp Pulse Resp B/P (MAP) Pulse Ox O2 Delivery O2 Flow Rate FiO2 11/18/21 09:05 Room Air 11/18/21 07:16 98.3 90 14 114/86 (95) 92 98.3 I & O 11/17/21 11/17/21 11/18/21 15:00 23:00 07:00 Intake Total 0 ml Balance 0 ml Physical Exam General: Alert Heart: Normal S1, Normal S2 Lungs: Clear Abdomen: Normal bowel sounds, Soft, No tenderness Labs Labs: Laboratory Tests Test 11/17/21 12:18 11/17/21 17:09 11/17/21 21:47 11/18/21 06:10 Glucose (Fingerstick) 267 mg/dL (70-99) 287 mg/dL (70-99) 295 mg/dL (70-99) White Blood Count 6.1 x10^3/uL (4.0-11.0) Red Blood Count 4.75 x10^6/uL (3.50-5.40) Hemoglobin 13.7 g/dL (12.0-15.5) Hematocrit 41.1 % (36.0-47.0) Mean Corpuscular Volume 87 fL (79-100) Mean Corpuscular Hemoglobin 29 pg (25-35) Mean Corpuscular Hemoglobin Concent 33 g/dL (31-37) Red Cell Distribution Width 16.4 % (11.5-14.5) Platelet Count 198 x10^3/uL (140-400) Neutrophils (%) (Auto) 60 % (31-73) Lymphocytes (%) (Auto) 31 % (24-48) Monocytes (%) (Auto) 7 % (0-9) Eosinophils (%) (Auto) 1 % (0-3) Basophils (%) (Auto) 1 % (0-3) Neutrophils # (Auto) 3.7 x10^3/uL (1.8-7.7) Lymphocytes # (Auto) 1.9 x10^3/uL (1.0-4.8) Monocytes # (Auto) 0.5 x10^3/uL (0.0-1.1) Eosinophils # (Auto) 0.1 x10^3/uL (0.0-0.7) Basophils # (Auto) 0.0 x10^3/uL (0.0-0.2) Sodium Level 139 mmol/L (136-145) Potassium Level 3.9 mmol/L (3.5-5.1) Chloride Level 102 mmol/L (98-107) Carbon Dioxide Level 29 mmol/L (21-32) Anion Gap 8 (6-14) Blood Urea Nitrogen 11 mg/dL (7-20) Creatinine 0.7 mg/dL (0.6-1.0) Estimated GFR (Cockcroft-Gault) 92.2 BUN/Creatinine Ratio 16 (6-20) Glucose Level 262 mg/dL (70-99) Calcium Level 9.3 mg/dL (8.5-10.1) Total Bilirubin 1.3 mg/dL (0.2-1.0) Aspartate Amino Transf (AST/SGOT) 134 U/L (15-37) Alanine Aminotransferase (ALT/SGPT) 161 U/L (14-59) Alkaline Phosphatase 206 U/L (46-116) Total Protein 7.6 g/dL (6.4-8.2) Albumin 3.8 g/dL (3.4-5.0) Albumin/Globulin Ratio 1.0 (1.0-1.7) Test 11/18/21 07:43 11/18/21 10:43 Glucose (Fingerstick) 258 mg/dL (70-99) 249 mg/dL (70-99) Assessment and Plan Assessmemt and Plan Problems Medical Problems: (1) Constipation Status: Acute Comment Review of Relevant I have reviewed the following items sharda (where applicable) has been applied. Medications: Current Medications Medications (Trade) Dose Ordered Sig/Taqueria Route PRN Reason Start Time Stop Time Status Last Admin Dose Admin Bupropion HCl (Wellbutrin Sr) 200 mg DAILY PO 11/17/21 15:00 11/17/21 15:26 Gabapentin (Neurontin) 300 mg TID PO 11/17/21 14:00 11/17/21 21:17 Alprazolam (Xanax) 2 mg PRN Q8HRS PRN PO ANXIETY / AGITATION 11/17/21 12:00 11/17/21 15:26 Insulin Glargine (Lantus Syringe) 36 unit BID SQ 11/17/21 21:00 11/18/21 09:08 Pantoprazole Sodium (Protonix) 40 mg DAILYAC PO 11/18/21 07:30 11/18/21 06:09 Quetiapine Fumarate (SEROquel XR) 300 mg QHS PO 11/17/21 21:00 11/17/21 21:05 Senna/Docusate Sodium (Senna Plus) 1 tab BID PO 11/17/21 21:00 11/17/21 21:07 Morphine Sulfate (Morphine Sulfate) 4 mg PRN Q2HR PRN IV PAIN 11/17/21 18:30 11/18/21 08:26 Justifications for Admission Other Justification Hypoglycemia JOHN PAUL VALDEZ MD Nov 18, 2021 10:47
[2021-11-18] MEDS ORDERED: PROPOFOL 10 MG/ML (20ML) VIAL. IV ONE (13:45)
[2021-11-18] MEDS ORDERED: LIDOCAINE 2% PF 5 ML VIAL. ONE (13:45)
--- NOTE | 2021-11-18 14:12 | PDOC4 ---
PROCEDURE Procedure EGD/foreign body removal Indication: ingested foreign body (paper clips) Meds: per anesthesia Findings: E--Normal G--one paper clip in body, removed with rat-tooth forceps. Extensively examined stomach and no second clip present. D--Normal to second portion; no clip visualized. Gregorio. well. IMP: Ingested foreign bodies, one removed, second passed beyond range of endoscope. REC: Keep NPO. Surgical opinion to follow in case perforates/lodges. Daily KUBs. ANA CASIANO MD Nov 18, 2021 14:12
[2021-11-18] MEDS: QUEtiapine 50 MG TAB.ER.24H. PO SCH (21:00)
[2021-11-18] MEDS: QUEtiapine 300 MG TAB.ER.24H. PO SCH (21:00)
[2021-11-19] MEDS: MORPHINE SULFATE 4 MG/ML INJ. IV PRN ×7 (00:16→21:12)
[2021-11-19 03:05] VITALS: BP 107/73
[2021-11-19] MEDS: PANTOPRAZOLE 40 MG TABLET.DR. PO SCH (05:51)
[2021-11-19 07:00] VITALS: BP 114/62
[2021-11-19] MEDS: INSULIN LISPRO 300 UNITS/3 ML VIAL. SQ SCH ×3 (08:00→16:42)
[2021-11-19] MEDS: SENNOSIDES/DOCUSATE 8.6/50MG TABLET. PO SCH ×2 (08:10→21:13)
[2021-11-19] MEDS: GABAPENTIN 300 MG CAPSULE. PO SCH ×3 (08:10→21:13)
[2021-11-19] MEDS: buPROPion SR 100 MG TABLET.SA. PO SCH (08:11)
--- NOTE | 2021-11-19 08:28 | RAD ---
XR ABDOMEN 1V History: Reason: Ingested paper clips--one removed/no second one seen at EGD. Location? / Spl. Instr uctions: / History: Technique: Supine view the abdomen. Comparison: November 18, 2021 Findings: Interval removal of one metallic paper clip. Second metallic paper clip projecting over the left mid abdomen. Surgical x-ray quadrant. Mild small bowel gas. Air and stool throughout the colon. Moderate colonic stool burden. Impression: 1. Interval removal of one metallic paperclip. 2. Additional second metallic paperclip projecting over the left mid abdomen. Electronically signed by: Shaji Rosa DO (11/19/2021 8:26 AM) [id number]
--- NOTE | 2021-11-19 08:47 | PDOC2 ---
CONSULT Date of Consult Date of Consult DATE: 11/19/21 TIME: 08:40 Reason for Consult Reason for Consult: FB ingestion Referring Physician Referring Physician: Dr Roe Identification/Chief Complaint Chief Complaint FB ingestion Source Source: Chart review, Patient History of Present Illness Reason for Visit: 1 week ago she accidentally swallowed some paperclips. She states she had a paperclip in her mouth and her daughter came from the back and hit her head and she hit something and swallowed the clips. Patient states she has not had a normal bowel movement for one week. undewent EGD yesterday, one clip removed, one not seen. Still some RLQ pain, similar as has been, not worse, but not improved Past Medical History Cardiovascular: HTN CENTRAL NERVOUS SYSTEM: Periperal neuropathy GI: Constipation, GERD Psych: Anxiety, Depression Endocrine: Diabetes Past Surgical History Past Surgical History: Cholecystectomy, Hernia Repair, Hysterectomy Family History Family History: Diabetes, Hypertension Social History ALCOHOL: none Drugs: None Lives: with Family Current Problem List Problem List Problems Medical Problems: (1) Constipation Status: Acute Current Medications Current Medications Current Medications Ondansetron HCl (Zofran) 4 mg PRN Q8HRS PRN IVP NAUSEA/VOMITING Last administered on 11/17/21at 07:56; Start 11/17/21 at 01:15; Stop 11/17/21 at 12:25; Status DC Morphine Sulfate (Morphine Sulfate) 4 mg PRN Q2HR PRN IVP PAIN Last administered on 11/17/21at 21:04; Start 11/17/21 at 01:15; Stop 11/18/21 at 01:14; Status DC Bupropion HCl (Wellbutrin Sr) 200 mg DAILY PO Last administered on 11/17/21at 15:26; Start 11/17/21 at 15:00 Gabapentin (Neurontin) 300 mg TID PO Last administered on 11/17/21at 21:17; Start 11/17/21 at 14:00 Insulin Human Lispro (HumaLOG) 20 units TIDWMEALS SQ ; Start 11/17/21 at 12:00 Ondansetron HCl (Zofran Odt) 4 mg PRN Q4HRS PRN PO NAUSEA Last administered on 11/19/21at 00:16; Start 11/17/21 at 12:00 Alprazolam (Xanax) 2 mg PRN Q8HRS PRN PO ANXIETY / AGITATION Last administered on 11/17/21at 15:26; Start 11/17/21 at 12:00 Insulin Glargine (Lantus Syringe) 36 unit BID SQ Last administered on 11/18/21at 21:41; Start 11/17/21 at 21:00 Pantoprazole Sodium (Protonix) 40 mg DAILYAC PO Last administered on 11/18/21at 06:09; Start 11/18/21 at 07:30 Quetiapine Fumarate (SEROquel XR) 300 mg QHS PO Last administered on 11/17/21at 21:05; Start 11/17/21 at 21:00 Ondansetron HCl (Zofran) 4 mg PRN Q6HRS PRN IVP NAUSEA/VOMITING; Start 11/17/21 at 12:00; Stop 11/17/21 at 12:35; Status DC Calcium Carbonate/ Glycine (Tums) 500 mg PRN Q3HRS PRN PO UPSET STOMACH; Start 11/17/21 at 12:00 Info (Non-Icu Electrolyte Protocol) 1 ea PRN DAILY PRN MC SEE COMMENTS; Start 11/17/21 at 12:00 Acetaminophen (Tylenol) 650 mg PRN Q6HRS PRN PO Headaches, Temp > 101.5F; Start 11/17/21 at 12:00 Senna/Docusate Sodium (Senna Plus) 1 tab BID PO Last administered on 11/17/21at 21:07; Start 11/17/21 at 21:00 Quetiapine Fumarate (SEROquel XR) 100 mg HS PO ; Start 11/18/21 at 21:00 Morphine Sulfate (Morphine Sulfate) 4 mg PRN Q2HR PRN IV PAIN Last administered on 11/19/21at 05:06; Start 11/17/21 at 18:30 Propofol (Diprivan) 200 mg STK-MED ONCE IV ; Start 11/18/21 at 13:45; Stop 11/18/21 at 13:45; Status DC Lidocaine HCl (Lidocaine Pf 2% Vial) 5 ml STK-MED ONCE .ROUTE ; Start 11/18/21 at 13:45; Stop 11/18/21 at 13:46; Status DC Active Scripts Active Promethazine Hcl 25 Mg Tablet 1 Tab PO PRN Q6HRS Ondansetron Odt (Ondansetron) 4 Mg Tab.rapdis 1 Tab PO PRN Q6-8HRS PRN Reported Bupropion Hcl Sr (Bupropion Hcl) 100 Mg Tablet.er 2 Tab PO DAILYWBKFT Humalog (Insulin Lispro) 100 Unit/1 Ml Vial 20 Unit SQ TIDWMEALS Lantus Solostar (Insulin Glargine,Hum.rec.anlog) 100 Unit/1 Ml Insuln.pen 36 Unit SQ BID Trintellix (Vortioxetine) 20 Mg Tablet 1 Tab PO DAILY 30 Days Seroquel (Quetiapine Fumarate) 400 Mg Tablet 1 Tab PO QHS Xanax (Alprazolam) 2 Mg Tablet 2 Mg PO PRN TID PRN Gabapentin (Gabapentin) 300 Mg Capsule 300 Mg PO TID Protonix (Pantoprazole Sodium) 20 Mg Tablet.dr 40 Mg PO DAILY Allergies Allergies: Coded Allergies: ketorolac (Verified Allergy, Severe, rash, 11/18/21) levofloxacin (Verified Allergy, Intermediate, Rash, 11/18/21) shellfish derived (Verified Allergy, Intermediate, RASH/ITCH, 11/18/21) vancomycin (Verified Allergy, Intermediate, Rash, 11/18/21) NSAIDS (Non-Steroidal Anti-Inflamma (Verified Adverse Reaction, Severe, contraindicated due to history of ulcers, 11/18/21) ROS General: No: Chills, Other (fevers ) PSYCHOLOGICAL ROS: No: Anxiety Eyes: No Blurry vision, No Double vision HEENT: No: Heacaches, Sore Throat Hematological and Lymphatic: No: Bleeding Problems, Blood Clots Respiratory: No: Cough, Shortness of breath Cardiovascular: No Chest Pain, No Palpitations Gastrointestinal: Yes Other (see hpi) Genitourinary: No Dysuria, No Retention Musculoskeletal: No Joint Pain, No Muscle Pain Neurological: No Impaired Coord/balance, No Numbness/Tingling Skin: No Pruritus, No Rash Physical Exam General: Alert, Oriented X3, Cooperative HEENT: Atraumatic, PERRLA Lungs: Clear to auscultation, Normal air movement Heart: Regular rate, Normal S1, Normal S2 Abdomen: Soft, Other (mild ttp , mid line scar from ventral hernia) Extremities: No clubbing, No cyanosis Skin: No rashes, No breakdown Neuro: Normal gait, Normal speech Psych/Mental Status: Mental status NL, Mood NL MUSCULOSKELETAL: No deformity, No swelling Vitals VITALS Vital Signs Date Time Temp Pulse Resp B/P (MAP) Pulse Ox O2 Delivery O2 Flow Rate FiO2 11/19/21 07:32 Room Air 11/19/21 07:00 97.6 87 18 114/62 (79) 95 97.6 Labs Labs Laboratory Tests Test 11/17/21 12:18 11/17/21 17:09 11/17/21 21:47 11/18/21 06:10 Glucose (Fingerstick) 267 mg/dL (70-99) 287 mg/dL (70-99) 295 mg/dL (70-99) White Blood Count 6.1 x10^3/uL (4.0-11.0) Red Blood Count 4.75 x10^6/uL (3.50-5.40) Hemoglobin 13.7 g/dL (12.0-15.5) Hematocrit 41.1 % (36.0-47.0) Mean Corpuscular Volume 87 fL (79-100) Mean Corpuscular Hemoglobin 29 pg (25-35) Mean Corpuscular Hemoglobin Concent 33 g/dL (31-37) Red Cell Distribution Width 16.4 % (11.5-14.5) Platelet Count 198 x10^3/uL (140-400) Neutrophils (%) (Auto) 60 % (31-73) Lymphocytes (%) (Auto) 31 % (24-48) Monocytes (%) (Auto) 7 % (0-9) Eosinophils (%) (Auto) 1 % (0-3) Basophils (%) (Auto) 1 % (0-3) Neutrophils # (Auto) 3.7 x10^3/uL (1.8-7.7) Lymphocytes # (Auto) 1.9 x10^3/uL (1.0-4.8) Monocytes # (Auto) 0.5 x10^3/uL (0.0-1.1) Eosinophils # (Auto) 0.1 x10^3/uL (0.0-0.7) Basophils # (Auto) 0.0 x10^3/uL (0.0-0.2) Sodium Level 139 mmol/L (136-145) Potassium Level 3.9 mmol/L (3.5-5.1) Chloride Level 102 mmol/L (98-107) Carbon Dioxide Level 29 mmol/L (21-32) Anion Gap 8 (6-14) Blood Urea Nitrogen 11 mg/dL (7-20) Creatinine 0.7 mg/dL (0.6-1.0) Estimated GFR (Cockcroft-Gault) 92.2 BUN/Creatinine Ratio 16 (6-20) Glucose Level 262 mg/dL (70-99) Calcium Level 9.3 mg/dL (8.5-10.1) Total Bilirubin 1.3 mg/dL (0.2-1.0) Aspartate Amino Transf (AST/SGOT) 134 U/L (15-37) Alanine Aminotransferase (ALT/SGPT) 161 U/L (14-59) Alkaline Phosphatase 206 U/L (46-116) Total Protein 7.6 g/dL (6.4-8.2) Albumin 3.8 g/dL (3.4-5.0) Albumin/Globulin Ratio 1.0 (1.0-1.7) Test 11/18/21 07:43 11/18/21 10:43 11/18/21 15:50 11/18/21 21:13 Glucose (Fingerstick) 258 mg/dL (70-99) 249 mg/dL (70-99) 271 mg/dL (70-99) 237 mg/dL (70-99) Test 11/19/21 07:47 Glucose (Fingerstick) 238 mg/dL (70-99) Laboratory Tests Test 11/18/21 10:43 11/18/21 15:50 11/18/21 21:13 11/19/21 07:47 Glucose (Fingerstick) 249 mg/dL (70-99) 271 mg/dL (70-99) 237 mg/dL (70-99) 238 mg/dL (70-99) Assessment/Plan Assessment/Plan Ingestion of FB xr noted paper clip over left abdomen follow, no current surgical plans NILSA LEBRON APRN Nov 19, 2021 08:47
[2021-11-19] MEDS: INSULIN GLARGINE SYRINGE. SQ SCH ×2 (09:13→21:17)
--- NOTE | 2021-11-19 09:14 | PDOC ---
Date of Service: DATE: 11/19/21 TIME: 09:12 Subjective: Subjective: Lower abdominal discomfort stable. Small stool yesterday - no sign of paperclip. Objective: Vital Signs: Vital Signs Date Time Temp Pulse Resp B/P (MAP) Pulse Ox O2 Delivery O2 Flow Rate FiO2 11/19/21 07:32 Room Air 11/19/21 07:00 97.6 87 18 114/62 (79) 95 97.6 Labs: Laboratory Tests Test 11/18/21 10:43 11/18/21 15:50 11/18/21 21:13 11/19/21 07:47 Glucose (Fingerstick) 249 mg/dL (70-99) 271 mg/dL (70-99) 237 mg/dL (70-99) 238 mg/dL (70-99) Imaging: KUB 11/19 Impression: 1. Interval removal of one metallic paperclip. 2. Additional second metallic paperclip projecting over the left mid abdomen. EGD 11/18 Findings: E--Normal G--one paper clip in body, removed with rat-tooth forceps. Extensively examined stomach and no second clip present. D--Normal to second portion; no clip visualized. Gregorio. well. IMP: Ingested foreign bodies, one removed, second passed beyond range of endoscope. REC: Keep NPO. Surgical opinion to follow in case perforates/lodges. Daily KUBs. PE: GEN: NAD LUNGS: CTAB HEART: RRR ABD: BS+, soft, non-tender NEURO/PSYCH: A & O 3 A/P: Ingested foreign bodies -- Continue per surgery. Justicifation of Admission Dx: Justifications for Admission: Justification of Admission Dx: N/A ZELALEM TANNER Nov 19, 2021 09:14
[2021-11-19 11:00] VITALS: BP 125/72
--- NOTE | 2021-11-19 12:07 | PDOC ---
[facility] PROGRESS NOTE Date of Service DOS: DATE: 11/19/21 TIME: 12:05 Chief Complaint Chief Complaint Foreign body ingestion, recurrent; hx anxiety, copd, depression, DM -Patient reportedly accidentally swallowed paperclips. Has been having abdominal distention since decreased stool output -Frequent occurrence with patient suspect diastolic component -GI consultation and look like repeat KUB if no improvement tomorrow possible scope --> EGD planned for the morning of 321 -Home meds as indicated -Discussed with bedside RN. History of Present Illness History of Present Illness 11/19/2021 No acute events overnight. Patient patient seen examined bedside. Mild mid abdominal pain. EGD yesterday removed 1 paperclip. KUB today shows paperclip in the left mid abdomen. Patient did report a bowel movement today. No foreign object seen. Will do serial KUB and serial abdominal exams until foreign body has been evacuated spontaneously. Patient's chart, labs, images were reviewed and discussed with RN 11/18 Patient evaluated examined at bedside. Resting in bed. Based on orders looks like plan for EGD today. If all goes well can possibly discharge later this afternoon or evening. Vitals/I&O Vitals/I&O: Vital Signs Date Time Temp Pulse Resp B/P (MAP) Pulse Ox O2 Delivery O2 Flow Rate FiO2 11/19/21 11:00 98.0 75 18 125/72 (89) 93 Room Air 98.0 I & O 11/18/21 11/18/21 11/19/21 15:00 23:00 07:00 Intake Total 0 ml Balance 0 ml Physical Exam General: Alert, Oriented X3, Cooperative Heart: Regular rate, Normal S1, Normal S2 Lungs: Clear Abdomen: Soft, Other (mild ttp , mid line scar from ventral hernia) Extremities: No clubbing, No cyanosis Skin: No rashes, No breakdown Labs Labs: Laboratory Tests Test 11/18/21 15:50 11/18/21 21:13 11/19/21 07:47 11/19/21 11:56 Glucose (Fingerstick) 271 mg/dL (70-99) 237 mg/dL (70-99) 238 mg/dL (70-99) 232 mg/dL (70-99) Assessment and Plan Assessmemt and Plan Problems Medical Problems: (1) Constipation Status: Acute Comment Review of Relevant I have reviewed the following items sharda (where applicable) has been applied. Justifications for Admission Other Justification Hypoglycemia TIERA MCGUIRE MD Nov 19, 2021 12:07
[2021-11-19 15:00] VITALS: BP 114/75
[2021-11-19] MEDS ORDERED: IV NORMAL SALINE 1000ML BAG 1,000 ML IV ONE (16:15)
--- NOTE | 2021-11-19 19:09 | NUR ---
Pt. stating she needs to go home, that she has not received any of her mental health meds. pt. informed it is not safe for her to go home with the paper clip still in her stomach. shortly after pt called and stated she is willing to stay and asked for anxiety meds. Dr. René kent.
[2021-11-19] MEDS ORDERED: ALPRAZolam 1 MG TABLET PO PRN (19:30)
[2021-11-19 19:35] VITALS: BP 142/74
[2021-11-19] MEDS: QUEtiapine 300 MG TAB.ER.24H. PO SCH (21:12)
[2021-11-19] MEDS: QUEtiapine 50 MG TAB.ER.24H. PO SCH (21:13)
[2021-11-19 23:25] VITALS: BP 122/74
[2021-11-20] MEDS: MORPHINE SULFATE 4 MG/ML INJ. IV PRN (00:07)
[2021-11-20 03:25] VITALS: BP 132/76
[2021-11-20 07:15] VITALS: BP 119/66
--- NOTE | 2021-11-20 08:40 | RAD ---
XR ABDOMEN 1V History: Reason: ingested foreign body / Spl. Instructions: / History: Technique: Supine view the abdomen. Comparison: November 19, 2021 Findings: Metallic paper clip projecting over the left mid abdomen. Surgical clips right upper quadrant. Mild s mall bowel gas. Air and stool throughout the colon. Lower lumbar spondylosis. Impression: 1. Metallic paper clip projecting over the left mid abdomen. Electronically signed by: Shaji Rosa DO (11/20/2021 8:38 AM) [id number]
--- NOTE | 2021-11-20 09:23 | PDOC ---
SURGICAL PROGRESS NOTE DATE: 11/20/21 TIME: 09:20 Subjective lower abdominal discomfort about the same denies nausea had small stool yesterday ROS: no fevers no SOA NO Chest pain Vital Signs Vital Signs Date Time Temp Pulse Resp B/P (MAP) Pulse Ox O2 Delivery O2 Flow Rate FiO2 11/20/21 07:15 82 16 119/66 (83) 92 Room Air 11/20/21 03:25 98.3 98.3 General: Cooperative, No acute distress Lungs: Clear to auscultation, Normal air movement Heart: Regular rate Abdomen: Soft, Other (ND) Labs Laboratory Tests Test 11/18/21 10:43 11/18/21 15:50 11/18/21 21:13 11/19/21 07:47 Glucose (Fingerstick) 249 mg/dL (70-99) 271 mg/dL (70-99) 237 mg/dL (70-99) 238 mg/dL (70-99) Test 11/19/21 11:56 11/19/21 16:40 11/19/21 20:57 11/20/21 07:09 Glucose (Fingerstick) 232 mg/dL (70-99) 192 mg/dL (70-99) 203 mg/dL (70-99) 159 mg/dL (70-99) Laboratory Tests Test 11/19/21 11:56 11/19/21 16:40 11/19/21 20:57 11/20/21 07:09 Glucose (Fingerstick) 232 mg/dL (70-99) 192 mg/dL (70-99) 203 mg/dL (70-99) 159 mg/dL (70-99) Problem List Problems Medical Problems: (1) Constipation Status: Acute Assessment/Plan xr reviewed, stable, no signs of perforation no current surgical plans Justicifation of Admission Dx: Justifications for Admission: Justification of Admission Dx: N/A NILSA LEBRON APRN Nov 20, 2021 09:22
--- NOTE | 2021-11-20 09:47 | PDOC ---
Date of Service: DATE: 11/20/21 TIME: 09:45 Subjective: Subjective: Little lower abd pain, not much. Has stooled a couple times - no paperclip. Objective: Objective: D/w nurse - asking if can take PO meds - was told diet was up to GI. Vital Signs: Vital Signs Date Time Temp Pulse Resp B/P (MAP) Pulse Ox O2 Delivery O2 Flow Rate FiO2 11/20/21 07:15 82 16 119/66 (83) 92 Room Air 11/20/21 03:25 98.3 98.3 Labs: Laboratory Tests Test 11/19/21 11:56 11/19/21 16:40 11/19/21 20:57 11/20/21 07:09 Glucose (Fingerstick) 232 mg/dL (70-99) 192 mg/dL (70-99) 203 mg/dL (70-99) 159 mg/dL (70-99) Imaging: KUB 11/20 Impression: 1. Metallic paper clip projecting over the left mid abdomen. PE: GEN: NAD - was asleep LUNGS: CTAB HEART: RRR ABD: soft, non-tender NEURO/PSYCH: A & O 3, flat A/P: Ingested foreign bodies -- Okay to take PO meds. Justicifation of Admission Dx: Justifications for Admission: Justification of Admission Dx: N/A ZELALEM TANNER Nov 20, 2021 09:47
[2021-11-20] MEDS: SENNOSIDES/DOCUSATE 8.6/50MG TABLET. PO SCH (09:56)
[2021-11-20] MEDS: PANTOPRAZOLE 40 MG TABLET.DR. PO SCH (09:57)
[2021-11-20] MEDS: buPROPion SR 100 MG TABLET.SA. PO SCH (09:57)
[2021-11-20] MEDS: GABAPENTIN 300 MG CAPSULE. PO SCH (09:57)
[2021-11-20] MEDS: INSULIN GLARGINE SYRINGE. SQ SCH (10:02)
[2021-11-20] MEDS: INSULIN LISPRO 300 UNITS/3 ML VIAL. SQ SCH ×2 (10:02→12:39)
--- NOTE | 2021-11-20 10:12 | PDOC ---
[facility] PROGRESS NOTE Date of Service DOS: DATE: 11/20/21 TIME: 10:11 Chief Complaint Chief Complaint Foreign body ingestion, recurrent; hx anxiety, copd, depression, DM -Patient reportedly accidentally swallowed paperclips. Has been having abdominal distention since decreased stool output -Frequent occurrence with patient suspect diastolic component -GI consultation and look like repeat KUB if no improvement tomorrow possible scope --> EGD planned for the morning of 321 -Home meds as indicated -Discussed with bedside RN. History of Present Illness History of Present Illness 11/20/2021 No acute events overnight. Patient seen examined bedside. Patient resting in bed does not appear to be in any pain. Having stooling but no paperclip found. KUB showing paperclip still in the left upper quadrant. Patient's chart, labs, images were reviewed and discussed with RN 11/19/2021 No acute events overnight. Patient patient seen examined bedside. Mild mid abdominal pain. EGD yesterday removed 1 paperclip. KUB today shows paperclip in the left mid abdomen. Patient did report a bowel movement today. No foreign object seen. Will do serial KUB and serial abdominal exams until foreign body has been evacuated spontaneously. Patient's chart, labs, images were reviewed and discussed with RN 11/18 Patient evaluated examined at bedside. Resting in bed. Based on orders looks like plan for EGD today. If all goes well can possibly discharge later this afternoon or evening. Vitals/I&O Vitals/I&O: Vital Signs Date Time Temp Pulse Resp B/P (MAP) Pulse Ox O2 Delivery O2 Flow Rate FiO2 11/20/21 07:15 82 16 119/66 (83) 92 Room Air 11/20/21 03:25 98.3 98.3 Physical Exam General: Cooperative, No acute distress Heart: Regular rate Lungs: Clear Abdomen: Soft, Other Extremities: No clubbing, No cyanosis Skin: No rashes, No breakdown Labs Labs: Laboratory Tests Test 11/19/21 11:56 11/19/21 16:40 11/19/21 20:57 11/20/21 07:09 Glucose (Fingerstick) 232 mg/dL (70-99) 192 mg/dL (70-99) 203 mg/dL (70-99) 159 mg/dL (70-99) Assessment and Plan Assessmemt and Plan Problems Medical Problems: (1) Constipation Status: Acute Comment Review of Relevant I have reviewed the following items sharda (where applicable) has been applied. Medications: Current Medications Medications (Trade) Dose Ordered Sig/Taqueria Route PRN Reason Start Time Stop Time Status Last Admin Dose Admin Sodium Chloride 1,000 ml @ 125 mls/hr 1X ONCE IV 11/19/21 16:15 11/20/21 00:14 DC 11/19/21 16:33 Alprazolam (Xanax) 2 mg PRN TID PRN PO ANXIETY / AGITATION 11/19/21 19:30 11/19/21 19:26 Justifications for Admission Other Justification Hypoglycemia TIERA MCGUIRE MD Nov 20, 2021 10:12
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
[2021-11-20 10:58] VITALS: BP 111/61
[2021-11-20] MEDS ORDERED: ALPRAZolam 1 MG TABLET PO SCH (11:30)
[2021-11-20] MEDS ORDERED: buPROPion SR 100 MG TABLET.SA. PO SCH (12:00)
[2021-11-20 14:58] VITALS: BP 112/71
--- NOTE | 2021-11-20 15:55 | NUR ---
Pt requesting to leave AMA. Educated pt on importance of staying and potential risks. Pt insists on going home states there is nothing were doing here that she cant do at home. IV removed. Pt ambulated to entrance with security and dispatcher bus and trolley.
[2021-11-21] MEDS ORDERED: NON FORMULARY ITEM (Vortioxetine Hydrobromide (Trintellix) 1 TAB) PO SCH (09:00)
== END 2021-11-20 16:03 | disposition left against medical advice (07) | DRG 395 ==
LOC: ER 21:27 → 4 NORTH 11-17 00:46
PROVIDERS: ADMIT Internal Medicine; ATTEND Internal Medicine
PROC: 0DC68ZZ Extirpation of Matter from Stomach, Via Natural or Artificial Opening Endoscopic (ICD-10-PCS; principal; 2021-11-18 13:30)
DX: T18.2XXA Foreign body in stomach, initial encounter (principal); I10 Essential (primary) hypertension; J44.9 Chronic obstructive pulmonary disease, unspecified; K59.00 Constipation, unspecified; F32.A Depression, unspecified; F41.9 Anxiety disorder, unspecified; G47.33 Obstructive sleep apnea (adult) (pediatric); E10.42 Type 1 diabetes mellitus with diabetic polyneuropathy; K21.9 Gastro-esophageal reflux disease without esophagitis; Z20.822 Contact with and (suspected) exposure to COVID-19; Z53.29 Procedure and treatment not carried out because of patient's decision for other reasons; X58.XXXA Exposure to other specified factors, initial encounter; Z79.4 Long term (current) use of insulin; Z82.49 Family history of ischemic heart disease and other diseases of the circulatory system; Z83.3 Family history of diabetes mellitus; Z90.710 Acquired absence of both cervix and uterus; Z90.49 Acquired absence of other specified parts of digestive tract; Z88.8 Allergy status to other drugs, medicaments and biological substances; Z88.6 Allergy status to analgesic agent; Z91.013 Allergy to seafood; Z88.1 Allergy status to other antibiotic agents; Y93.89 Activity, other specified; Y92.89 Other specified places as the place of occurrence of the external cause; Y99.8 Other external cause status
CPT/HCPCS: 36415; 43247; 71045; 74018; 80053; 82962; 85025; 87426; J1815; J2270; J2405; J2704; J7030; U0003; 99285-25; G0378